=== PATIENT | female | born 1940 | race Caucasian/White ===

== ENCOUNTER 2017-04-02 13:42 | Observation (INO) | payer MEDICARE, OTHER, SELFPAY ==
[2017-04-02] VITALS (13 sets, daily range): BP systolic 130–146; BP diastolic 46–66; PULSE 62–78; RESP 19–24; TEMP 36.6–37.2; O2SAT 95–100; BMI 35.7; BMI 35.9; BMI 36.0
--- NOTE | 2017-04-02 13:48 | RAD_ITS ---
STUDY: X-RAY CHEST REASON FOR EXAM: Female, 77 years old. Chest pain. TECHNIQUE: Single AP portable view of the chest. COMPARISON: Comparison is made with prior study December 28, 2015. FINDINGS: EKG electrodes are seen. There is elevation of the right hemidiaphragm. Mild degree of vascular congestion. There is no demonstrated pleural abnormality. Sternal cerclage wires and vascular clips are present from a prior sternotomy and coronary artery bypass graft procedure (CABG). Borderline cardiomegaly. Normal mediastinum and billy. Normal visualized pulmonary arteries. Normal visualized aortic arch and descending thoracic aorta. There are diffuse degenerative changes of the visualized thoracic spine. Normal visualized ribs, clavicles, and shoulders. There is no demonstrated abnormality of the visualized soft tissue structures of the upper abdomen. RAD/Chest 1 View (Portable) IMPRESSION: Borderline cardiomegaly. Mild vascular congestion. Electronically Signed: Steve Ferreira MD at 14:13 EST Tel [phone], Service support ,
--- NOTE | 2017-04-02 13:48 | EKG12_ITS ---
Test Reason : CP Blood Pressure : / mmHG Vent. Rate : 105 BPM Atrial Rate : 105 BPM P-R Int : 000 ms QRS Dur : 120 ms QT Int : 358 ms P-R-T Axes : 000 -44 141 degrees QTc Int : 473 ms Sinus tachycardia Premature ventricular complexes Incomplete left bundle branch block Left axis deviation Anterior infarct , age undetermined Marked ST abnormality, possible inferior subendocardial injury Abnormal ECG Confirmed by SY DANIELLE ([id number]), loan expeditor KARSON FARRELL ([id number]) on 04/07/2017 10:14:56 AM Referred By: SOFYA Confirmed By:SY DANIELLE
[2017-04-02] MEDS: 0.9% Normal Saline 1,000 ML 150 ML IV (14:05)
[2017-04-02] MEDS: Aspirin 81 MG TAB.CHEW 324 MG PO (14:05)
[2017-04-02 14:07] LABS: Absolute Lymphocyte Count 1.64 X10^3/ul (0.83-4.51); Absolute Neutrophil Count 10.5 X10^3/uL (2.0-7.7); Basophil# 0.02 X10^3/uL; Basophil% 0.2 % (0-1); Eosinophil# 0.04 X10^3/uL; Eosinophils% 0.3 % (0-5); Hematocrit 37.7 % (37-47); Hemoglobin 12.1 g/dl (12.0-15.0); Lymphocyte # 1.64 X10^3/ul (4.0); Lymphocyte % 12.6 % (19-41); Mean Corp Hgb Conc 32.1 g/gl (32-36); Mean Corpuscular Hgb 28.9 pg (27.0-32.0); Mean Platelet Vol. 10.1 fl (6.2-12.0); Monocyte# 0.74 X10^3/uL; Monocyte% 5.7 % (0-10); Neutrophil # 10.49 X10^3/uL (2.7-7.7); Neutrophil % 80.7 % (47-70); Platelet Count 205 K/mm3 (150-450); RBC Distribution Width CV 13.1 % (11.6-14.6); RBC Distribution Width SD 42.7 fl (35.1-43.9); Red Blood Count 4.19 M/mm3 (4.2-5.4)
[2017-04-02 14:11] LABS: POSITIVE COUNT NO; POSITIVE DIFFERENTIAL NO; POSITIVE MORPHOLOGY NO
[2017-04-02 14:23] LABS: Anion Gap 9 (5-15); BUN 23 mg/dL (7-18); BUN/Creat Ratio 14.4 RATIO (10-20); Calcium,Total 9.4 mg/dL (8.5-10.1); Chloride 98 mmol/L (98-107); EST Glomerular Filtration Rate 33 mL/min (>60); Est Glom Filt Rate - Afr Amer 40 mL/min (>60); Estimated Creatinine Clearance 24.74 ml/min; Glucose 366 mg/dL (70-110); Potassium 3.5 mmol/L (3.5-5.1); Sodium Level 137 mmol/L (136-145)
--- NOTE | 2017-04-02 14:27 | EKG12_ITS ---
Test Reason : REPEAT Blood Pressure : / mmHG Vent. Rate : 067 BPM Atrial Rate : 067 BPM P-R Int : 178 ms QRS Dur : 114 ms QT Int : 420 ms P-R-T Axes : 016 -20 166 degrees QTc Int : 443 ms Normal sinus rhythm Anterior infarct , age undetermined ST & T wave abnormality, consider inferolateral ischemia Abnormal ECG Confirmed by SY DANIELLE ([id number]), material expeditor KARSON FARRELL ([id number]) on 04/07/2017 10:15:15 AM Referred By: CAROLINA Confirmed By:SY DANIELLE
--- NOTE | 2017-04-02 15:34 | ED.VISSUMM ---
- ER Visit Summary Date of Service: 04/02/17 Chief Complaint: Chest pain History of Present Illness: The patient is a [address] Magana and Dr. san off. Patient reports approximate hour and a half ago while she was at rest she had the onset of substernal tightness radiating to her jaw. Lasted until just before she arrived. It was 10 out of 10 at worst and she is pain-free currently. It was worsened by exertion and partially relieved by nitroglycerin. She complains of low seated nausea without vomiting, shortness of breath, and diaphoresis. This is similar to the chest pain that she had prior to needing stents. Physical Examination: Vitals: Stable. Afebrile. General: Well-nourished and well-developed. Head: Normocephalic atraumatic. Neck: Supple, no lymphadenopathy. No JVD. Nontender. Cardiovascular: Regular rate and rhythm. No murmurs. Respiratory: No respiratory distress. Clear to auscultation bilaterally. Abdominal: Soft, nontender, nondistended, normal bowel sounds. No guarding, rebound, or peritoneal signs. Back: Nontender. Extremities: Nontender, no edema. Skin: Normal color, no rash. Neurologic: Alert and oriented ?3. Cranial nerves II through XII are intact. Normal strength and sensation. Psych: Normal affect. Test Results: EKG is sinus tach at 105 with T-wave inversions in leads I, V5 and V6. Repeat EKG is unchanged. This is unchanged from December 30, 2015. Chest x-ray shows borderline cardiomegaly and mild vascular congestion. CBC is marked for white count of 13.0, 7 neutrophils 81, monocytes 13. Chem-7 is more for BUN of 23, creatinine 1.6, glucose 366. Patient is currently on steroids. I feel this partially explains her leukocytosis and hyperglycemia. Emergency Department Course and Treatment: Patient was treated with aspirin p.o. She is resting comfortably. She has had no chest pain while here. Treatment Plan: She was discussed with Dr. Muller. She will be admitted to the hospital for further evaluation and treatment. Disposition: Admitted in improved condition. Impression: 1. Chest pain. 2. YAZ score of 5. 3. Renal insufficiency. 4. Hyperglycemia with hsv-zeoixrk-dgdckacnc diabetes mellitus. This note was generated with Dragon dictation software. It may contain incorrect words, spelling, and punctuation that were not noted in review of the chart prior to signing ED Disposition - Plan for ED Patient: Chief Complaint: Chest Pain Referrals: Jeffrey Lopez MD [Primary Care Provider] -
--- NOTE | 2017-04-02 15:39 | ED.DCSUM_ITS ---
- ER Visit Summary Date of Service: 04/02/17 Chief Complaint: Chest pain History of Present Illness: The patient is a [address] Magana and Dr. san off. Patient reports approximate hour and a half ago while she was at rest she had the onset of substernal tightness radiating to her jaw. Lasted until just before she arrived. It was 10 out of 10 at worst and she is pain- free currently. It was worsened by exertion and partially relieved by nitroglycerin. She complains of low seated nausea without vomiting, shortness of breath, and diaphoresis. This is similar to the chest pain that she had prior to needing stents. Physical Examination: Vitals: Stable. Afebrile. General: Well-nourished and well-developed. Head: Normocephalic atraumatic. Neck: Supple, no lymphadenopathy. No JVD. Nontender. Cardiovascular: Regular rate and rhythm. No murmurs. Respiratory: No respiratory distress. Clear to auscultation bilaterally. Abdominal: Soft, nontender, nondistended, normal bowel sounds. No guarding, rebound, or peritoneal signs. Back: Nontender. Extremities: Nontender, no edema. Skin: Normal color, no rash. Neurologic: Alert and oriented ?3. Cranial nerves II through XII are intact. Normal strength and sensation. Psych: Normal affect. Test Results: EKG is sinus tach at 105 with T-wave inversions in leads I, V5 and V6. Repeat EKG is unchanged. This is unchanged from December 30, 2015. Chest x-ray shows borderline cardiomegaly and mild vascular congestion. CBC is marked for white count of 13.0, 7 neutrophils 81, monocytes 13. Chem-7 is more for BUN of 23, creatinine 1.6, glucose 366. Patient is currently on steroids. I feel this partially explains her leukocytosis and hyperglycemia. Emergency Department Course and Treatment: Patient was treated with aspirin p.o. She is resting comfortably. She has had no chest pain while here. Treatment Plan: She was discussed with Dr. Muller. She will be admitted to the hospital for further evaluation and treatment. Disposition: Admitted in improved condition. Impression: 1. Chest pain. 2. YAZ score of 5. 3. Renal insufficiency. 4. Hyperglycemia with bxd-uznndzn-aabjrecaf diabetes mellitus. This note was generated with Dragon dictation software. It may contain incorrect words, spelling, and punctuation that were not noted in review of the chart prior to signing ED Disposition - Plan for ED Patient: Chief Complaint: Chest Pain Referrals: Jeffrey Lopez MD [Primary Care Provider] -
[2017-04-02] MEDS: LORazepam 0.5 MG Tablet PO (15:58)
--- NOTE | 2017-04-02 17:00 | ECHOD_ITS ---
Reason For Study: SOB Procedure This was a 2D Doppler, Color Flow transthoracic echocardiogram. Exam performed portable in patient room. Left Ventricle Mildly dilated left ventricle. The estimated ejection fraction is 50-55 %. Stage 2 diastolic dysfunction. There are regional wall motion abnormalities as specified. Posterior-Basal: Mildly hypokinetic. Right Ventricle Normal size and thickness. Normal systolic function. Atria Normal left atrium. Normal right atrium. Normal atrial septum. Mitral Valve The mitral valve is structurally normal. No prolapse or stenosis seen. Trivial mitral valve insufficiency. Tricuspid Valve Normal tricuspid valve. Trivial tricuspid valve insufficiency. Right ventricular systolic pressure estimated to be 48 mmHg. Moderate pulmonary hypertension. Aortic Valve Trisinus/trileaflet aortic valve. Pulmonic Valve Normal pulmonic valve. Great Vessels Normal aortic root. Normal arch. Normal inferior vena cava. Pericardium/Pleural No pericardial effusion. Medication Definity0.5ml given slow IV push to enhance endocardial definition. MMode/2D Measurements & Calculations LVIDd: 5.0 cm IVSd: 0.79 cm Ao root diam: 2.5 cm LVIDs: 3.7 cm LVPWd: 1.1 cm LA dimension: 4.5 cm FS: 26.2 % LAV(MOD-bp): 49.9 ml LAV(MOD-bp) Indexed: 25.8 ml/m2 LA A4 area: 18.9 cm2 RA A4 area: 10.1 cm2 LAV(MOD-sp2): 44.1 ml LAV(MOD-sp4): 53.3 ml Doppler Measurements & Calculations MV E max doug: 129.5 cm/sec Lat Peak E' Doug: 5.6 cm/sec Med Peak E' Doug: 3.5 cm/sec MV A max doug: 88.0 cm/sec E/E' lat: 23.1 E/E' med: 37.2 MV E/A: 1.5 Ao V2 max: 166.3 cm/sec LV V1 max: 85.8 cm/sec PA V2 max: 114.6 cm/sec Ao max P.1 mmHg LV V1 max P.9 mmHg TR max doug: 307.2 cm/sec TR max P.8 mmHg Interpretation Summary Mildly dilated left ventricle. The estimated ejection fraction is 50-55 %. Stage 2 diastolic dysfunction. There are regional wall motion abnormalities as specified. Posterior-Basal: Mildly hypokinetic Trivial mitral valve insufficiency. Right ventricular systolic pressure estimated to be 48 mmHg. Compared to echo report dated 12/29/2015, no appreciable changes noted. Ordering Physician: Alex Grove Referring Physician: Jeffrey Lopez Performed By: Bri Lazcano RDCS
[2017-04-02 17:41] LABS: Allen Test POS; Base Excess 5 mmol/L (-2 to +2); Bicarbonate 29.6 mmol/L (22-26); Blood Gas Specimen Type ART; O2 Delivery Device Nasal Can; PO2 112 mmHG (75-100); SITE L Radial; SO2 98 % (95-99); Time Given 1715; Total Carbon Dioxide 31 mmol/L; pCO2 46.3 mmHg (35-45); pH 7.41 (7.35-7.45)
[2017-04-02 18:41] LABS: Bedside Glucose 410 mg/dL (70-110)
[2017-04-02] MEDS: Furosemide 40 MG/4 ML Vial IV (18:56)
[2017-04-02 19:46] LABS: BNP,B-Type NATRIURETIC PEPTIDE 279.6 pg/mL (0-100)
[2017-04-02] MEDS: Ipratropium/Albuterol Sulfate 3 ML AMPUL.NEB INHALATION (20:28)
--- NOTE | 2017-04-02 20:29 | PCM.HP.STD ---
Problem List (1) Chest pain Status: Acute Qualifiers: Chest pain type: precordial pain Qualified Code(s): R07.2 - Precordial pain History of Present Illness Date of Admission: 04/02/17 Chief Complaint: Chest pain The patient is a 77 year old F was seen in the emergency room at [facility] with a chief complaint of precordial substernal chest tightness which occurred approximately 1 PM this afternoon and lasted 1-1/2 hours. She stated the discomfort radiated into her throat, she denied any radiation down her arms or into her her jaw areas. She stated she took a nitroglycerin and the discomfort went away after a total of about an hour when she was in the emergency room. Patient stated she had nausea with this chest discomfort and she was short of breath. Patient had a cardiac catheterization done 2015 which showed stable coronary disease as compared with a catheterization done in 2012, at that time, it was recommended that medical management be continued. Patient is on chronic oxygen at home and she states that recently the oxygen has had to be turned up to 4 L. Patient states that she has a history of asthma, she has been following up with a warehouse guard at the [facility] concerning this. Workup in the emergency room included a chest x-ray which was read out as showing vascular congestion-I personally looked at the chest x-ray and due to the patient's large habitus, I am not sure that she does have vascular congestion. Patient's labs were performed, they were remarkable for a white blood cell count of 13,000, glucose of 366, BUN of 23, creatinine of 1.6, and troponin was 0.02. Patient had arterial blood gases performed on 4 L nasal cannula, it showed a pH of 7.41, PCO2 46, PO2 of 112. On examination, patient's heart rate and rhythm were regular, lung sounds were distant, no inspiratory rales were noted. Patient had +1 mm pretibial edema bilaterally. Patient was alert and did not appear to be in any distress. EKG performed showed a normal sinus rhythm with nonspecific ST-T wave changes in the lateral wall leads. Patient will be placed in observation status for chest pain, cardiac enzymes will be cycled, echocardiogram will be obtained, I feel that the patient would benefit from being on some IV Lasix and I have written for this. In addition, I recommended the patient that we have pulmonary medicine see the patient for evaluation and she is agreed. If cardiac enzymes remain negative, patient will undergo a resting pharmacological nuclear stress test tomorrow. 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 Dyslipidemia (Chronic) Hypothyroidism (Chronic) Obesity (Chronic) Type II diabetes mellitus (Chronic) GERD (gastroesophageal reflux disease) (Chronic) IBS (irritable bowel syndrome) (Chronic) Rheumatoid arthritis (Chronic) Moderate persistent asthma (Chronic) with secondary pulm HTN Allergies simvastatin [From Zocor] Allergy (Verified 04/02/17 14:01) Unknown acetaminophen [From Vicodin] Adverse Reaction (Verified 04/02/17 17:15) Vomiting hydrocodone bitartrate [From Vicodin] Adverse Reaction (Verified 04/02/17 17:15) Vomiting AMMONIUM LACTATE Allergy (Uncoded 04/02/17 17:15) Rash Home Medications: Ambulatory Orders Medication Instructions Recorded Aspirin [Aspirin, Baby] 81 mg PO DAILY@0800 08/23/13 Clopidogrel Bisulfate [Plavix] 75 mg PO DAILY 08/23/13 Nitroglycerin [Nitrostat] 0.4 mg SL PRN PRN 08/23/13 Omeprazole [Prilosec] 40 mg PO DAILY 08/23/13 Pravastatin [Pravachol] 80 mg PO QHS 08/23/13 Budesonide Aerosol [Pulmicort 0.25 mg INHALATION Q12H 04/11/14 Respules] Oxygen, Home [Home Oxygen] 2 - 4 lpm NASAL DAILY #1 unit 04/26/14 Isosorbide Mononitrate [Imdur] 60 mg PO DAILY #30 tablet 12/31/15 Metoprolol Tartrate [Lopressor 50 mg PO BID #60 tablet 12/31/15 (beta meredith)] Albuterol Aerosols [Ventolin 2.5 mg INHALATION Q6H PRN PRN 04/02/17 Aerosols] Allopurinol 200 mg PO DAILY 04/02/17 Amlodipine [Norvasc] 5 mg PO DAILY 04/02/17 Calcitriol [Rocaltrol] 0.25 mcg PO DAILY 04/02/17 Lorazepam [Ativan] 0.5 mg PO TID PRN PRN 01/25/18 Ropinirole HCl [Requip] 0.25 mg PO QHS PRN 04/02/17 Furosemide [Lasix] 40 mg PO BIDLX #60 tab 04/03/17 Insulin NPH Human [Humulin N Pen] 50 units SC BID pen 04/03/17 Insulin Regular, Human [Humulin R] 15 unit SQ TIDCM #1 vial 04/03/17 Potassium Chloride [K-Dur] 20 meq PO DAILY #30 tab 04/03/17 Surgical History: angioplasty, appendectomy, coronary bypass surgery, - - CABG: DENISE to the LAD; SVG to the OM system-sequential graft; SVG to the RCA, , coronary artery stent placement Psychiatric History: No pertinent psych hx 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 Denies: Anorexia, Chills, Fever, Night Sweats, Malaise, Weakness, Weight Change Eyes: Denies: Blurred vision, Cataracts, Conjunctivae Inflammation, Double vision, Drainage HEENT: Denies: Difficulty Hearing, Difficulty Swallowing, Dysphasia, Ear Pain, Eye Pain, Head Aches, Hearing Changes, Nasal bleeding, Nasal Congestion Cardiovascular: Reports: Chest Pain, Chest Tightness, Edema. Denies: Claudication, Orthopnea, Palpitations, Paroxysmal Noc. Dyspnea Respiratory: Reports: Shortness of Breath, Shortness of breath at rest, Shortness of breath upon exertion. Denies: Cough, Hemoptysis, Pleuritic Pain, Sputum production Gastrointestinal: Reports: Nausea. Denies: Abdominal Pain, Constipation, Diarrhea, Hematemesis, Hematochezia Genitourinary: Denies: Dysuria, Frequency, Hematuria, Incontinence, Nocturia, Retention Gynecological: Denies: Breast symptoms Musculoskeletal: Denies: Back Pain, Foot Pain, Hand Pain, Joint swelling, Joint Tenderness, Leg Pain Skin: Denies: Dryness, Jaundice, Pruritis, Rash Neurological: Denies: Balance problems, Blurred vision, Double vision, Change in Speech, Difficulty swallowing, Focal weakness, Headaches, Incoordination Psychiatric: Denies: Anxiety, Depression, Homicidal Ideations, Suicidal Ideations Endocrine: Denies: Change in Body Habitus, Heat/ Cold Intolerance, Polyuria, Hx of Irradiation Hematologic/ Lymphatic: Denies: Adenopathy, Anemia, Easy Bruising, Petechiae, Purpura VTE Information - Inpt Only VTE Present on Admission: No VTE Mechan Device Prophylaxis: None VTE Pharm Prophylaxis ordered?: Yes - Physical Exam General: Alert, Oriented x3, Cooperative, No apparent distress, Well developed, Well nourished HEENT: Atraumatic, PERRLA, EOMI, Normocephalic Oral: Moist Mucosa Neck: Supple, No JVD, Negative Carotid Bruits, No Nuchal Rigidity, Trachea Midline, Thyroid Normal Size and Texture Lungs: Clear to auscultation, No rhonchi, No wheeze, No rales, Diminished Cardiovascular: Regular rate, Regular Rhythm, Normal S1, Normal S2, No murmurs, PMI Normal, No rub noted, No Gallop Abdomen: Bowel Sounds Present, Soft, Non Tender, Obese Extremities: Capillary Refill Less than 3 Seconds, Edema - +1 mm pretibial edema bilaterally Skin: No rashes, No breakdown Musculoskeletal: No Tenderness to Palpation of Joints or Extremities Neurological: Cranial nerves II-XII grossly intact, Neuro grossly intact, Sensory exam intact to light touch and pain, Coordination normal Psych/Mental Status: Normal Affect, Appropriate, Alert and oriented to time, place, person, mood and affect Vital Signs Temp Pulse Resp BP Pulse Ox 97.8 F 66 22 H 146/46 H 100 04/02/17 17:00 04/02/17 18:56 04/02/17 17:00 04/02/17 17:00 04/02/17 17:00 Oxygen Flow Rate 4 Oxygen Delivery Method Nasal Cannula Weight: 92.1 kg Body Mass Index (BMI) 35.9 Intake and Output for Last 24 Hours 03/31/17 04/01/17 04/02/17 23:59 23:59 23:59 Intake Total 600 / 600 Balance 600 / 600 Laboratory Tests Past 24 Hrs 04/02/17 04/02/17 17:36 18:26 Specimen Type ART Sample Site L Radial pH 7.41 Bicarbonate Actual 29.6 H POC Total CO2 31 Base Excess 5 H O2 Saturation 98 ABG pCO2 46.3 H ABG pO2 112 H Dagoberto Test POS O2 Delivery Device Nasal Can Liter Flow 4.0 Blood Gas Notified Whom HOSP Blood Gas Notified Time 1715 Troponin I 0.12 H POC Glucose 04/02/17 18:27 POC Glucose 410 H Assessment/Plan #1 precordial chest pain-in a patient with known coronary artery disease, patient would be placed in observation status on PCU, cardiac enzymes will be cycled, patient will have a nuclear stress test if her enzymes remain negative. Echocardiogram will be obtained #2 chronic hypoxic respiratory failure-patient is on home O2 at 4 L #3 coronary artery disease #4 asthma by history-I discussed having the patient see pulmonary medicine while she was in the hospital, she is consented to this and will see Dr. Calero in consultation. Patient does see a [facility] warehouse guard. #5 type 2 diabetes-uncontrolled #6 chronic kidney disease stage III secondary to type 2 diabetes #7 obesity #8 intermediate troponin Code Visit OBSV E&M: [id number] Initial observation care L3
--- NOTE | 2017-04-02 20:35 | HP.PCM_ITS ---
Problem List (1) Chest pain Status: Acute Qualifiers: Chest pain type: precordial pain Qualified Code(s): R07.2 - Precordial pain History of Present Illness Date of Admission: 04/02/17 Chief Complaint: Chest pain The patient is a 77 year old F was seen in the emergency room at [facility] with a chief complaint of precordial substernal chest tightness which occurred approximately 1 PM this afternoon and lasted 1-1/2 hours. She stated the discomfort radiated into her throat, she denied any radiation down her arms or into her her jaw areas. She stated she took a nitroglycerin and the discomfort went away after a total of about an hour when she was in the emergency room. Patient stated she had nausea with this chest discomfort and she was short of breath. Patient had a cardiac catheterization done 2015 which showed stable coronary disease as compared with a catheterization done in 2012, at that time, it was recommended that medical management be continued. Patient is on chronic oxygen at home and she states that recently the oxygen has had to be turned up to 4 L. Patient states that she has a history of asthma, she has been following up with a methods and procedures analyst at the [facility] concerning this. Workup in the emergency room included a chest x-ray which was read out as showing vascular congestion-I personally looked at the chest x-ray and due to the patient's large habitus, I am not sure that she does have vascular congestion. Patient's labs were performed, they were remarkable for a white blood cell count of 13,000, glucose of 366, BUN of 23, creatinine of 1.6, and troponin was 0.02. Patient had arterial blood gases performed on 4 L nasal cannula, it showed a pH of 7.41, PCO2 46, PO2 of 112. On examination, patient' s heart rate and rhythm were regular, lung sounds were distant, no inspiratory rales were noted. Patient had +1 mm pretibial edema bilaterally. Patient was alert and did not appear to be in any distress. EKG performed showed a normal sinus rhythm with nonspecific ST-T wave changes in the lateral wall leads. Patient will be placed in observation status for chest pain, cardiac enzymes will be cycled, echocardiogram will be obtained, I feel that the patient would benefit from being on some IV Lasix and I have written for this. In addition, I recommended the patient that we have pulmonary medicine see the patient for evaluation and she is agreed. If cardiac enzymes remain negative, patient will undergo a resting pharmacological nuclear stress test tomorrow. 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 Dyslipidemia (Chronic) Hypothyroidism (Chronic) Obesity (Chronic) Type II diabetes mellitus (Chronic) GERD (gastroesophageal reflux disease) (Chronic) IBS (irritable bowel syndrome) (Chronic) Rheumatoid arthritis (Chronic) Moderate persistent asthma (Chronic) with secondary pulm HTN Allergies simvastatin [From Zocor] Allergy (Verified 04/02/17 14:01) Unknown acetaminophen [From Vicodin] Adverse Reaction (Verified 04/02/17 17:15) Vomiting hydrocodone bitartrate [From Vicodin] Adverse Reaction (Verified 04/02/17 17:15) Vomiting AMMONIUM LACTATE Allergy (Uncoded 04/02/17 17:15) Rash Home Medications: Ambulatory Orders Medication Instructions Recorded Aspirin [Aspirin, Baby] 81 mg PO DAILY@0800 08/23/13 Clopidogrel Bisulfate [Plavix] 75 mg PO DAILY 08/23/13 Nitroglycerin [Nitrostat] 0.4 mg SL PRN PRN 08/23/13 Omeprazole [Prilosec] 40 mg PO DAILY 08/23/13 Pravastatin [Pravachol] 80 mg PO QHS 08/23/13 Budesonide Aerosol [Pulmicort 0.25 mg INHALATION Q12H 04/11/14 Respules] Oxygen, Home [Home Oxygen] 2 - 4 lpm NASAL DAILY #1 unit 04/26/14 Isosorbide Mononitrate [Imdur] 60 mg PO DAILY #30 tablet 12/31/15 Metoprolol Tartrate [Lopressor 50 mg PO BID #60 tablet 12/31/15 (beta meredith)] Albuterol Aerosols [Ventolin 2.5 mg INHALATION Q6H PRN PRN 04/02/17 Aerosols] Allopurinol 200 mg PO DAILY 04/02/17 Amlodipine [Norvasc] 5 mg PO DAILY 04/02/17 Calcitriol [Rocaltrol] 0.25 mcg PO DAILY 04/02/17 Lorazepam [Ativan] 0.5 mg PO TID PRN PRN 01/25/18 Ropinirole HCl [Requip] 0.25 mg PO QHS PRN 04/02/17 Furosemide [Lasix] 40 mg PO BIDLX #60 tab 04/03/17 Insulin NPH Human [Humulin N Pen] 50 units SC BID pen 04/03/17 Insulin Regular, Human [Humulin R] 15 unit SQ TIDCM #1 vial 04/03/17 Potassium Chloride [K-Dur] 20 meq PO DAILY #30 tab 04/03/17 Surgical History: angioplasty, appendectomy, coronary bypass surgery, - - CABG: DENISE to the LAD; SVG to the OM system-sequential graft; SVG to the RCA, C- section, coronary artery stent placement Psychiatric History: No pertinent psych hx 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 Denies: Anorexia, Chills, Fever, Night Sweats , Malaise, Weakness, Weight Change Eyes: Denies: Blurred vision, Cataracts, Conjunctivae Inflammation, Double vision, Drainage HEENT: Denies: Difficulty Hearing, Difficulty Swallowing, Dysphasia, Ear Pain, Eye Pain, Head Aches, Hearing Changes, Nasal bleeding, Nasal Congestion Cardiovascular: Reports: Chest Pain, Chest Tightness, Edema. Denies: Claudication, Orthopnea, Palpitations, Paroxysmal Noc. Dyspnea Respiratory: Reports: Shortness of Breath, Shortness of breath at rest, Shortness of breath upon exertion. Denies: Cough, Hemoptysis, Pleuritic Pain, Sputum production Gastrointestinal: Reports: Nausea. Denies: Abdominal Pain, Constipation, Diarrhea, Hematemesis, Hematochezia Genitourinary: Denies: Dysuria, Frequency, Hematuria, Incontinence, Nocturia, Retention Gynecological: Denies: Breast symptoms Musculoskeletal: Denies: Back Pain, Foot Pain, Hand Pain, Joint swelling, Joint Tenderness, Leg Pain Skin: Denies: Dryness, Jaundice, Pruritis, Rash Neurological: Denies: Balance problems, Blurred vision, Double vision, Change in Speech, Difficulty swallowing, Focal weakness, Headaches, Incoordination Psychiatric: Denies: Anxiety, Depression, Homicidal Ideations, Suicidal Ideations Endocrine: Denies: Change in Body Habitus, Heat/ Cold Intolerance, Polyuria, Hx of Irradiation Hematologic/ Lymphatic: Denies: Adenopathy, Anemia, Easy Bruising, Petechiae, Purpura VTE Information - Inpt Only VTE Present on Admission: No VTE Mechan Device Prophylaxis: None VTE Pharm Prophylaxis ordered?: Yes - Physical Exam General: Alert, Oriented x3, Cooperative, No apparent distress, Well developed, Well nourished HEENT: Atraumatic, PERRLA, EOMI, Normocephalic Oral: Moist Mucosa Neck: Supple, No JVD, Negative Carotid Bruits, No Nuchal Rigidity, Trachea Midline, Thyroid Normal Size and Texture Lungs: Clear to auscultation, No rhonchi, No wheeze, No rales, Diminished Cardiovascular: Regular rate, Regular Rhythm, Normal S1, Normal S2, No murmurs, PMI Normal, No rub noted, No Gallop Abdomen: Bowel Sounds Present, Soft, Non Tender, Obese Extremities: Capillary Refill Less than 3 Seconds, Edema - +1 mm pretibial edema bilaterally Skin: No rashes, No breakdown Musculoskeletal: No Tenderness to Palpation of Joints or Extremities Neurological: Cranial nerves II-XII grossly intact, Neuro grossly intact, Sensory exam intact to light touch and pain, Coordination normal Psych/Mental Status: Normal Affect, Appropriate, Alert and oriented to time, place, person, mood and affect Vital Signs Temp Pulse Resp BP Pulse Ox 97.8 F 66 22 H 146/46 H 100 04/02/17 17:00 04/02/17 18:56 04/02/17 17:00 04/02/17 17:00 04/02/17 17:00 Oxygen Flow Rate 4 Oxygen Delivery Method Nasal Cannula Weight: 92.1 kg Body Mass Index (BMI) 35.9 Intake and Output for Last 24 Hours 03/31/17 04/01/17 04/02/17 23:59 23:59 23:59 Intake Total 600 / 600 Balance 600 / 600 Laboratory Tests Past 24 Hrs 04/02/17 04/02/17 17:36 18:26 Specimen Type ART Sample Site L Radial pH 7.41 Bicarbonate Actual 29.6 H POC Total CO2 31 Base Excess 5 H O2 Saturation 98 ABG pCO2 46.3 H ABG pO2 112 H Dagoberto Test POS O2 Delivery Device Nasal Can Liter Flow 4.0 Blood Gas Notified Whom HOSP Blood Gas Notified Time 1715 Troponin I 0.12 H POC Glucose 04/02/17 18:27 POC Glucose 410 H Assessment/Plan #1 precordial chest pain-in a patient with known coronary artery disease, patient would be placed in observation status on PCU, cardiac enzymes will be cycled, patient will have a nuclear stress test if her enzymes remain negative. Echocardiogram will be obtained #2 chronic hypoxic respiratory failure-patient is on home O2 at 4 L #3 coronary artery disease #4 asthma by history-I discussed having the patient see pulmonary medicine while she was in the hospital, she is consented to this and will see Dr. Calero in consultation. Patient does see a [facility] methods and procedures analyst. #5 type 2 diabetes-uncontrolled #6 chronic kidney disease stage III secondary to type 2 diabetes #7 obesity #8 intermediate troponin Code Visit OBSV E&M: [id number] Initial observation care L3
[2017-04-02] MEDS: Budesonide Respules 0.5 MG/2 ML AMPUL.NEB. 0.25 MG INHALATION (21:02)
[2017-04-02] MEDS: Pravastatin 80 MG Tablet PO (22:02)
[2017-04-02] MEDS: Metoprolol Tartrate 50 MG Tablet PO (22:03)
[2017-04-02] MEDS: Heparin Injection 5,000 UNITS/ML Syringe 5000 UNITS SC (22:04)
[2017-04-02] MEDS: ALPRAZolam 0.5 MG Tablet PO (22:07)
[2017-04-02 22:15] LABS: Bedside Glucose 453 mg/dL (70-110)
[2017-04-02 22:34] LABS: Glucose 471 mg/dL (70-110)
[2017-04-02] MEDS: Insulin NPH Human 100 UNITS/ML PEN 50 UNITS SC (22:53)
[2017-04-03] VITALS (10 sets, daily range): BP systolic 127–160; BP diastolic 52–73; PULSE 53–85; RESP 16–20; TEMP 36.5–36.9; O2SAT 97–100
[2017-04-03] MEDS: LORazepam 0.5 MG Tablet PO (00:34)
[2017-04-03 05:44] LABS: Absolute Neutrophil Count 9.9 X10^3/uL (2.0-7.7); Basophil# 0.01 X10^3/uL; Basophil% 0.1 % (0-1); Eosinophil# 0.01 X10^3/uL; Eosinophils% 0.1 % (0-5); Hematocrit 35.6 % (37-47); Hemoglobin 11.4 g/dl (12.0-15.0); Mean Corpuscular Hgb 28.6 pg (27.0-32.0); Mean Corpuscular Volume 89.2 fL (81-99); Mean Platelet Vol. 10.3 fl (6.2-12.0); Monocyte% 6.5 % (0-10); Neutrophil % 80.1 % (47-70); Platelet Count 189 K/mm3 (150-450); RBC Distribution Width CV 13.3 % (11.6-14.6); Red Blood Count 3.99 M/mm3 (4.2-5.4); White Blood Count 12.4 K/mm3 (4.4-11.0)
--- NOTE | 2017-04-03 05:55 | EKG12_ITS ---
Test Reason : MMORNING EKG Blood Pressure : / mmHG Vent. Rate : 056 BPM Atrial Rate : 056 BPM P-R Int : 192 ms QRS Dur : 114 ms QT Int : 454 ms P-R-T Axes : 074 -33 181 degrees QTc Int : 438 ms Sinus bradycardia with Premature atrial complexes Left axis deviation Anterior infarct , age undetermined ST & T wave abnormality, consider lateral ischemia Abnormal ECG When compared with ECG of 02-APR-2017 14:39, MANUAL COMPARISON REQUIRED, DATA IS UNCONFIRMED Confirmed by SY DANIELLE [id number]), editor managing director KARSON FARRELL ([id number]) on 04/09/2017 11:49:00 AM Referred By: ELIOT Confirmed By:SY DANIELLE
[2017-04-03 06:03] LABS: POSITIVE COUNT NO; POSITIVE DIFFERENTIAL NO; POSITIVE MORPHOLOGY NO
[2017-04-03 06:06] LABS: Anion Gap 8 (5-15); BUN 28 mg/dL (7-18); BUN/Creat Ratio 20.6 RATIO (10-20); Chloride 100 mmol/L (98-107); Creatinine, Serum 1.36 mg/dL (0.55-1.02); EST Glomerular Filtration Rate 40 mL/min (>60); Est Glom Filt Rate - Afr Amer 49 mL/min (>60); Estimated Creatinine Clearance 29.11 ml/min; Glucose 251 mg/dL (70-110); Sodium Level 140 mmol/L (136-145)
[2017-04-03 06:38] LABS: International Normalized Ratio 1.2; Prothrombin Time (Protime)PT. 14.3 SECONDS (11.7-14.9)
[2017-04-03 06:39] LABS: Partial Thromboplast Time 32.6 Seconds (24.1-36.2)
[2017-04-03 06:43] LABS: Magnesium 1.8 mg/dL (1.6-2.6)
[2017-04-03 06:51] LABS: Bedside Glucose 222 mg/dL (70-110)
[2017-04-03 07:13] LABS: Hemoglobin A1c 8.7 % (4.2-6.3)
[2017-04-03] MEDS: Budesonide Respules 0.5 MG/2 ML AMPUL.NEB. 0.25 MG INHALATION (07:19)
[2017-04-03] MEDS: Ipratropium/Albuterol Sulfate 3 ML AMPUL.NEB INHALATION ×2 (07:19→13:17)
[2017-04-03] MEDS: Aspirin 81 MG TAB.CHEW PO (11:33)
[2017-04-03] MEDS: Insulin NPH Human 100 UNITS/ML PEN 50 UNITS SC (11:35)
[2017-04-03] MEDS: amLODIPine 5 MG Tablet PO (11:37)
[2017-04-03] MEDS: Isosorbide Mononitrate 60 MG Tablet PO (11:37)
[2017-04-03] MEDS: Clopidogrel Bisulfate 75 MG Tablet PO (11:37)
[2017-04-03] MEDS: Metoprolol Tartrate 50 MG Tablet PO (11:37)
[2017-04-03] MEDS: Pantoprazole Sodium 40 MG Tablet PO (11:37)
[2017-04-03] MEDS: Furosemide 40 MG/4 ML Vial IV (11:39)
[2017-04-03] MEDS: 0.9% NaCl Peripheral Flush Adult/Peds IV (11:42)
--- NOTE | 2017-04-03 11:49 | PCM.CONS.GEN ---
Problem List (1) Hypercapnia Status: Acute (2) Pulmonary hypertension Status: Acute (3) Acute respiratory failure with hypoxia Status: Acute Reason for Consult Date of Consultation: 04/02/17 - pulmonary hypertension/ALYCE Reason for Consultation: pulmonary hypertension/ALYCE History of Present Illness: The patient is a 77 year old F who presented to the emergency department with sudden onset of chest tightness that radiated to her jaw. She previously had a heart catheterization and felt that these symptoms were very similar to the symptoms she experienced prior to that procedure. She did take nitroglycerin which relieved her of her chest tightness. She also experienced nausea but did not experience vomiting. When evaluated into the emergency department she was found to be tachycardic with a heart rate of 105, was in sinus tachycardia did have T-wave inversion which has been without change since documentation on December 30, 2015. She was noted to have an elevated white blood cell count which was thought to be attributed to oral corticosteroids. ABG was obtained and showed a pH of 7.41 with a PCO2 of 46, confirming chronic respiratory failure with hypercarbia. Chest x-ray was completed and did confirm mild vascular congestion. The patient has been seen by pulmonology in the past and typically follows with Dr. Estrada at [facility]. She carries a diagnosis of asthma and current home regimen consists of budesonide by nebulizer twice daily, albuterol by night nebulizer 4 times daily. Most recent pulmonary function test was completed 3-4 years ago. Most recent pulmonary stress test was a few months ago and the patient reports that within the first minute on room air her oxygen saturation dropped below 89% and she required supplemental oxygen. She denies ever being a smoker, but reports that she was exposed to secondhand smoke for 15 years. She also reports that she worked in a [employer] for many years. She also states that her daughter has COPD. She denies having frequent exacerbations of bronchitis or pneumonia. She reports that approximately 6-7 years ago she participated in a sleep study with Dr. Balbuena. She reports having severe claustrophobia and states that she was unable to complete the titration portion of the testing and therefore never began therapy. She does report snoring. She has had witnessed episodes of apnea. She naps daily for approximately 30 minutes. She also reports awakening gasping for air and feels as though she has been suffocated. 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 Dyslipidemia (Chronic) Hypothyroidism (Chronic) Obesity (Chronic) Type II diabetes mellitus (Chronic) GERD (gastroesophageal reflux disease) (Chronic) IBS (irritable bowel syndrome) (Chronic) Rheumatoid arthritis (Chronic) Moderate persistent asthma (Chronic) with secondary pulm HTN Allergies simvastatin [From Zocor] Allergy (Verified 04/02/17 14:01) Unknown acetaminophen [From Vicodin] Adverse Reaction (Verified 04/02/17 17:15) Vomiting hydrocodone bitartrate [From Vicodin] Adverse Reaction (Verified 04/02/17 17:15) Vomiting AMMONIUM LACTATE Allergy (Uncoded 04/02/17 17:15) Rash Home Medications: Ambulatory Orders Medication Instructions Recorded Aspirin [Aspirin, Baby] 81 mg PO DAILY@0800 08/23/13 Clopidogrel Bisulfate [Plavix] 75 mg PO DAILY 08/23/13 Nitroglycerin [Nitrostat] 0.4 mg SL PRN PRN 08/23/13 Omeprazole [Prilosec] 40 mg PO DAILY 08/23/13 Pravastatin [Pravachol] 80 mg PO QHS 08/23/13 Budesonide Aerosol [Pulmicort 0.25 mg INHALATION Q12H 04/11/14 Respules] Oxygen, Home [Home Oxygen] 2 - 4 lpm NASAL DAILY #1 unit 04/26/14 Insulin NPH Human Isophane 45 units SQ 0900,2200 07/22/15 [Humulin N Kwikpen] Isosorbide Mononitrate [Imdur] 60 mg PO DAILY #30 tablet 12/31/15 Metoprolol Tartrate [Lopressor 50 mg PO BID #60 tablet 12/31/15 (beta meredith)] Albuterol Aerosols [Ventolin 2.5 mg INHALATION Q6H PRN PRN 04/02/17 Aerosols] Allopurinol 200 mg PO DAILY 04/02/17 Amlodipine [Norvasc] 5 mg PO DAILY 04/02/17 Calcitriol [Rocaltrol] 0.25 mcg PO DAILY 04/02/17 Furosemide [Lasix] 20 mg PO BIDLX 04/02/17 Insulin Regular, Human [Humulin R] 50 unit SQ 1200,1700 04/02/17 Lorazepam [Ativan] 0.5 mg PO TID PRN PRN 04/02/17 Prednisone [Prednisone] 20 mg PO DAILY 04/02/17 Ropinirole HCl [Requip] 0.25 mg PO QHS PRN 04/02/17 Surgical History: noncontributory, angioplasty, - - CABG: DENISE to the LAD; SVG to the OM system-sequential graft; SVG to the RCA Psychiatric History: No pertinent psych hx 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 Denies: Anorexia, Chills, Fever, Night Sweats, Malaise, Weight Change Eyes: Denies: Blurred vision, Pain, Vision Change HEENT: Denies: Difficulty Hearing, Head Aches, Nasal Congestion, Sinus Drainage, Sore Throat Cardiovascular: Reports: Chest Tightness, Edema, Orthopnea, Paroxysmal Noc. Dyspnea. Denies: Chest Pain, Palpitations Respiratory: Reports: Shortness of breath upon exertion. Denies: Cough, Sputum production, Wheezing Gastrointestinal: Denies: Abdominal Pain Genitourinary: Reports: Nocturia Skin: Denies: Dryness, Rash, Wounds Neurological: Denies: Balance problems, Slurred speech, Confusion, Difficulty swallowing, Headaches, Numbness, Tingling Psychiatric: Reports: Anxiety. Denies: Depression Endocrine: Denies: Change in Body Habitus, Heat/ Cold Intolerance, Polydipsia, Polyuria Hematologic/ Lymphatic: Denies: Adenopathy, Anemia, Easy Bruising, Easy Bleeding Patient Problems: Active and Suspected Problems Chest pain (Acute) Hypercapnia (Acute) Pulmonary hypertension (Acute) Subjective: The patient is restful semi-bowie's in the bed, she has dyspneic during conversation. She is tachypneic. She is complaining of shortness of breath. Family is at the bedside, granddaughter does not appear to be supportive of obstructive sleep apnea treatment. Objective: Vital signs are stable, she has remained afebrile. She is on her baseline oxygen requirements. Echocardiogram is pending. Stress test was just completed and pending. - Physical Exam General: Alert, Oriented x3, Cooperative, No apparent distress, Well developed, Well nourished HEENT: Atraumatic, PERRLA, Normocephalic Oral: Moist Mucosa, No Gingival or Mucosal Lesions/ Ulcerations Neck: Supple, No Nodes, Trachea Midline, - - thick neck Lungs: Clear to auscultation, No rhonchi, No wheeze, No rales, Diminished Cardiovascular: Regular rate, Regular Rhythm, Murmur Abdomen: Bowel Sounds Present, Soft, Non Tender, Non-Distended, Obese Extremities: No clubbing, No cyanosis, Capillary Refill Less than 3 Seconds, Diminished Peripheral Pulses, Edema - 1+ bilateral LE Skin: No rashes, No breakdown Musculoskeletal: No Tenderness to Palpation of Joints or Extremities Lymphatic: No Cervical, Supraclavicular, or Inguinal Adenopathy Neurological: Cranial nerves II-XII grossly intact, Neuro grossly intact, Motor Exam 5/5 strength throughout, - - bilaterl hand tremmors present Psych/Mental Status: Appropriate, Anxious Vital Signs Temp Pulse Resp BP Pulse Ox 97.7 F L 62 19 H 160/73 H 100 04/03/17 11:32 04/03/17 11:37 04/03/17 11:32 04/03/17 11:32 04/03/17 11:32 Oxygen Flow Rate 4 Oxygen Delivery Method Nasal Cannula Weight: 203 lb 0.732 oz Body Mass Index (BMI) 35.9 Intake and Output for Last 24 Hours 04/01/17 04/02/17 04/03/17 23:59 23:59 23:59 Intake Total 600 / 600 240 / 240 Output Total 1150 / 1150 Balance 600 / 600 -910 / -910 Laboratory Tests Past 24 Hrs 04/02/17 04/02/17 04/02/17 17:36 18:26 22:08 WBC RBC Hgb Hct MCV MCH MCHC RDW RDW Differential Plt Count MPV Immature Gran % (Auto) Neut % (Auto) Lymph % (Auto) [place] % (Auto) Eos % (Auto) Baso % (Auto) Absolute Neuts (auto) Absolute Lymphs (auto) Total Counted PT INR APTT Specimen Type ART Sample Site L Radial pH 7.41 Bicarbonate Actual 29.6 H POC Total CO2 31 Base Excess 5 H O2 Saturation 98 ABG pCO2 46.3 H ABG pO2 112 H Dagoberto Test POS O2 Delivery Device Nasal Can Liter Flow 4.0 Blood Gas Notified Whom [facility] Blood Gas Notified Time 1715 Sodium Potassium Chloride Carbon Dioxide Anion Gap BUN Creatinine Estim Creat Clear Calc Est GFR (MDRD) Af Amer Est GFR (MDRD) Non-Af BUN/Creatinine Ratio Glucose Hemoglobin A1c Calcium Magnesium Troponin I 0.12 H 0.19 H 04/02/17 04/03/17 04/03/17 22:08 05:06 05:06 WBC RBC Hgb Hct MCV MCH MCHC RDW RDW Differential Plt Count MPV Immature Gran % (Auto) Neut % (Auto) Lymph % (Auto) [place] % (Auto) Eos % (Auto) Baso % (Auto) Absolute Neuts (auto) Absolute Lymphs (auto) Total Counted PT INR APTT Specimen Type Sample Site pH Bicarbonate Actual POC Total CO2 Base Excess O2 Saturation ABG pCO2 ABG pO2 Dagoberto Test O2 Delivery Device Liter Flow Blood Gas Notified Whom Blood Gas Notified Time Sodium 140 Potassium 4.0 Chloride 100 Carbon Dioxide 32.0 Anion Gap 8 BUN 28 H Creatinine 1.36 H Estim Creat Clear Calc 29.11 Est GFR (MDRD) Af Amer 49 L Est GFR (MDRD) Non-Af 40 L BUN/Creatinine Ratio 20.6 H Glucose 471 H* 251 H Hemoglobin A1c 8.7 H Calcium 9.0 Magnesium Troponin I 0.25 H 04/03/17 04/03/17 04/03/17 05:06 05:06 05:06 WBC 12.4 H RBC 3.99 L Hgb 11.4 L Hct 35.6 L MCV 89.2 MCH 28.6 MCHC 32.0 RDW 13.3 RDW Differential 43.0 Plt Count 189 MPV 10.3 Immature Gran % (Auto) 0.200 Neut % (Auto) 80.1 H Lymph % (Auto) 13.0 L [place] % (Auto) 6.5 Eos % (Auto) 0.1 Baso % (Auto) 0.1 Absolute Neuts (auto) 9.9 H Absolute Lymphs (auto) 1.60 Total Counted Not Reportable PT 14.3 INR 1.2 APTT 32.6 Specimen Type Sample Site pH Bicarbonate Actual POC Total CO2 Base Excess O2 Saturation ABG pCO2 ABG pO2 Dagoberto Test O2 Delivery Device Liter Flow Blood Gas Notified Whom Blood Gas Notified Time Sodium Potassium Chloride Carbon Dioxide Anion Gap BUN Creatinine Estim Creat Clear Calc Est GFR (MDRD) Af Amer Est GFR (MDRD) Non-Af BUN/Creatinine Ratio Glucose Hemoglobin A1c Calcium Magnesium 1.8 Troponin I POC Glucose 04/03/17 04/02/17 04/02/17 06:45 21:56 18:27 POC Glucose 222 H 453 H* 410 H Assessment/Plan Active and Suspected Problems Chest pain (Acute) Hypercapnia (Acute) Pulmonary hypertension (Acute) RECOMMENDATIONS: 1. Continue supplemental oxygen, maintain sats 89-92% 2. Walking oximetry prior to discharge 3. Continue home nebulizers treatments 4. Echocardiogram 5. Will need titration study post discharge 6. Need to obtain records from sleep study from Dr Kim and PFT from Dr Estrada 7. Will need repeat PFT 8. Patient will need follow up after d/c, may follow up with Dr Estrada or may choose to follow up with [facility] IMPRESSIONS: 1. Acute on chronic hypoxic and hypercarbic respiratory failure secondary to untreated sleep apnea Has had a positive sleep study in the past but failed to start therapy secondary to claustrophobia. Impressed the importance of treatment, educated on risks of untreated sleep apnea. Patients grand daughter may be a road block to therapy, support system is less than desirable. She agrees to titration study and initiation of pressure support therapy. Need to follow up with pulmonary post hospital d/c with either Dr Estrada or Pulmonary Medicine l[facility]far[facility]. 2. Pulmonary hypertension Echocardiogram from October 13, 2013 documented an EF of 55% and an RVSP of 39 mmHg. Repeat echocardiogram is pending. Given the patient's untreated obstructive sleep apnea, I anticipate that the RVSP will be stable or possibly have progressed. Educated the patient on the correlation between obstructive sleep apnea and diastolic heart failure. She conveys understanding. Continue to provide supplemental oxygen to maintain saturations 89-92%. 3. Obstructive sleep apnea Patient reports that she previously had a sleep study confirming obstructive sleep apnea but was not able to complete the titration portion of the test. She is agreeable to having a titration preformed. We will obtain the previous sleep study, and sent for titration study if able. The patient will then follow-up either with pulmonary medicine to [facility] or Dr. Blackmon in the outpatient setting. 4. Obesity/hypertension/coronary artery disease/DJD/dyslipidemia/hypothyroidism/diabetes type 2/GERD/IBS/RA/asthma/advanced age Comorbid illness complicates exam, plan, care and prognosis. Continue all home medications as tolerates. Thank you for the consultation and the opportunity to participate in this patient's care. This note was generated with Carma dictation software. It may contain incorrect words, spelling, and punctuation that were not noted in checking the note before signing.
[2017-04-03 11:50] LABS: Bedside Glucose 218 mg/dL (70-110)
--- NOTE | 2017-04-03 13:21 | STRESSREP ---
Stress Test Report Date: 04/03/2017 Procedure: Pharmacologic stress nuclear imaging study Indications: Chest pain Consent: Per the patient Procedure: The patient underwent pharmacologic (Regadenoson) evaluation with a peak heart rate of 85 bpm (59% predicted maximal heart rate) with a peak blood pressure 118/64 mmHg. The baseline ECG demonstrated an underlying ectopic atrial rhythm with nonspecific ST and T-wave abnormality. The peak pharmacologic ECG demonstrated no obvious ECG changes. There were no additional cardiac dysrhythmias pretest, during pharmacologic infusion, or recovery. There was no report of chest discomfort during pharmacologic infusion or recovery. The examination was discontinued secondary to completion of protocol. Impression: 1. Pharmacologic (Regadenoson) evaluation 2. Peak pharmacologic ECG with continued ectopic atrial rhythm with nonspecific ST and T-wave abnormality 3. Nuclear images pending Myocardial perfusion imaging study: Technique: The patient was injected with 14.2 mCi of technetium 99m Cardiolite and subsequently rest SPECT Cardiolite nuclear imaging was obtained in the horizontal long, vertical long, and short axis views. The patient underwent pharmacologic (Regadenoson) evaluation with a peak heart rate of 85 bpm (59% predicted maximal heart rate) with a peak blood pressure 118/64 mmHg. The patient was injected with 43.1 mCi of technetium 99m Cardiolite and subsequently stress SPECT Cardiolite nuclear imaging was obtained in the horizontal long, vertical long, and short axis views. A gated Cardiolite study at peak stress was obtained. Interpretation: Rest and stress SPECT Cardiolite nuclear imaging demonstrates, status post realignment, normalization, and attenuation correction, the appearance of relative uniform tracer uptake and myocardial perfusion appearing within normal limits. There is end systolic thickening and brightening. The gated Cardiolite study demonstrates myocardial thickening and inward wall motion. The reported LVEF is 53%. Impression: 1. Rest and stress SPECT Cardiolite nuclear imaging demonstrating relative uniform tracer uptake and myocardial perfusion appearing within normal limits. 2. The gated Cardiolite study demonstrates an LVEF 53%. This note was generated with [employer] software. Every effort was made to ensure accuracy, however, computerized sandwich wrapper mistakes may persist.
--- NOTE | 2017-04-03 13:27 | STRESSREP_ITS ---
Stress Test Report Date: 04/03/2017 Procedure: Pharmacologic stress nuclear imaging study Indications: Chest pain Consent: Per the patient Procedure: The patient underwent pharmacologic (Regadenoson) evaluation with a peak heart rate of 85 bpm (59% predicted maximal heart rate) with a peak blood pressure 118 /64 mmHg. The baseline ECG demonstrated an underlying ectopic atrial rhythm with nonspecific ST and T-wave abnormality. The peak pharmacologic ECG demonstrated no obvious ECG changes. There were no additional cardiac dysrhythmias pretest, during pharmacologic infusion, or recovery. There was no report of chest discomfort during pharmacologic infusion or recovery. The examination was discontinued secondary to completion of protocol. Impression: 1. Pharmacologic (Regadenoson) evaluation 2. Peak pharmacologic ECG with continued ectopic atrial rhythm with nonspecific ST and T-wave abnormality 3. Nuclear images pending Myocardial perfusion imaging study: Technique: The patient was injected with 14.2 mCi of technetium 99m Cardiolite and subsequently rest SPECT Cardiolite nuclear imaging was obtained in the horizontal long, vertical long, and short axis views. The patient underwent pharmacologic (Regadenoson) evaluation with a peak heart rate of 85 bpm (59% predicted maximal heart rate) with a peak blood pressure 118/64 mmHg. The patient was injected with 43.1 mCi of technetium 99m Cardiolite and subsequently stress SPECT Cardiolite nuclear imaging was obtained in the horizontal long, vertical long, and short axis views. A gated Cardiolite study at peak stress was obtained. Interpretation: Rest and stress SPECT Cardiolite nuclear imaging demonstrates, status post realignment, normalization, and attenuation correction, the appearance of relative uniform tracer uptake and myocardial perfusion appearing within normal limits. There is end systolic thickening and brightening. The gated Cardiolite study demonstrates myocardial thickening and inward wall motion. The reported LVEF is 53%. Impression: 1. Rest and stress SPECT Cardiolite nuclear imaging demonstrating relative uniform tracer uptake and myocardial perfusion appearing within normal limits. 2. The gated Cardiolite study demonstrates an LVEF 53%. This note was generated with [employer] software. Every effort was made to ensure accuracy, however, computerized board certified music therapist mistakes may persist.
--- NOTE | 2017-04-03 15:50 | CHAPLAIN ---
patient was unavailable at this time
[2017-04-03 15:56] LABS: Bedside Glucose 131 mg/dL (70-110)
--- NOTE | 2017-04-03 16:59 | NURSING ---
Pt weaned to 2L of O2, was 95%. Pt ambulated with this RN in [place] and dropped to 77% on 2L and 83% on 3L. O2 increased to 4L and sats returned to 95% with ambulation. Roseline ARAIZA
--- NOTE | 2017-04-03 17:05 | DCINST_ITS ---
- Discharge Diagnoses Current Active Problems: Current Active and Chronic Problems Chest pain (Acute) Hypercapnia (Acute) Pulmonary hypertension (Acute) You will use the following diet at home:: Calorie/Carbohydrate Controlled ( specify 1200, 1400, etc) - 1800 viviane Your food should be the consistency of: Regular Your liquids should be the consistency of: Regular/Thin Discharge Activity: Return to Normal Activity Weight Bearing Status: Full weight bearing Allergies/Adverse Reactions: Allergies simvastatin [From Zocor] Allergy (Verified 04/02/17 14:01) Unknown acetaminophen [From Vicodin] Adverse Reaction (Verified 04/02/17 17:15) Vomiting hydrocodone bitartrate [From Vicodin] Adverse Reaction (Verified 04/02/17 17:15) Vomiting AMMONIUM LACTATE Allergy (Uncoded 04/02/17 17:15) Rash Medications to take at Discharge Aspirin [Aspirin, Baby] 81 mg PO DAILY@0800 08/23/13 Clopidogrel Bisulfate [Plavix] 75 mg PO DAILY 08/23/13 Nitroglycerin [Nitrostat] 0.4 mg SL PRN PRN 08/23/13 Omeprazole [Prilosec] 40 mg PO DAILY 08/23/13 Pravastatin [Pravachol] 80 mg PO QHS 08/23/13 Budesonide Aerosol [Pulmicort Respules] 0.25 mg INHALATION Q12H 04/11/14 Oxygen, Home [Home Oxygen] 2 - 4 lpm NASAL DAILY #1 unit 04/26/14 Isosorbide Mononitrate [Imdur] 60 mg PO DAILY #30 tablet 12/31/15 Metoprolol Tartrate [Lopressor (beta meredith)] 50 mg PO BID #60 tablet 12/31/15 Albuterol Aerosols [Ventolin Aerosols] 2.5 mg INHALATION Q6H PRN PRN 04/02/17 Allopurinol 200 mg PO DAILY 04/02/17 Amlodipine [Norvasc] 5 mg PO DAILY 04/02/17 Calcitriol [Rocaltrol] 0.25 mcg PO DAILY 04/02/17 Lorazepam [Ativan] 0.5 mg PO TID PRN PRN 04/02/17 Ropinirole HCl [Requip] 0.25 mg PO QHS PRN 04/02/17 Furosemide [Lasix] 40 mg PO BIDLX #60 tab 01/26/18 Insulin NPH Human [Humulin N Pen] 50 units SC BID pen 04/03/17 Insulin Regular, Human [Humulin R] 15 unit SQ TIDCM #1 vial 04/03/17 Potassium Chloride [K-Dur] 20 meq PO DAILY #30 tab 04/03/17 The following prescriptions were given: Furosemide [Lasix] 40 mg PO BIDLX #60 tab Potassium Chloride [K-Dur] 20 meq PO DAILY #30 tab Insulin Regular, Human [Humulin R] 15 unit SQ TIDCM #1 vial Primary Care Physician: Jeffrey Lopez MD [Primary Care Provider] - Please follow up with your Primary Care Physician in: in 2 weeks Please Follow Up With: Yuri Calero MD When: in 2 weeks
--- NOTE | 2017-04-05 09:10 | DS.PCM_ITS ---
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 Workup in the emergency room included a chest x-ray which showed no active disease, labs were performed, patient was noted to have an elevated creatinine which was normal for the patient, glucose is elevated at 366, white blood cell count was slightly elevated at 13, patient's troponin was 0.02. Patient's EKG showed no evidence of ischemic changes. Patient was placed in observation status on PCU, cardiac enzymes were cycled and these jesús to the intermediate range but did not rise further and this was felt not to be significant. Patient's blood sugars were controlled with adjustment of her insulin, she was given IV diuresis due to concerns of pulmonary hypertension. Patient underwent a nuclear stress test which did not show evidence of reversible ischemia, echocardiogram was obtained which showed a preserved EF but evidence of mild pulmonary hypertension. Patient was seen in consultation by pulmonary medicine and it was noted in interviewing the patient that she had a positive sleep study but was not able to tolerate CPAP. She was to follow-up with pulmonary medicine as an outpatient for her sleep apnea. Patient's oxygen requirement was able be reduced to 2 L after diuresis, on 04/03/17, patient was seen and examined and felt to be in stable condition for discharge home Discharge Activity: Return to Normal Activity Weight Bearing Status: Full weight bearing Home Medications: Medications to take at Discharge Aspirin [Aspirin, Baby] 81 mg PO DAILY@0800 08/23/13 Clopidogrel Bisulfate [Plavix] 75 mg PO DAILY 08/23/13 Nitroglycerin [Nitrostat] 0.4 mg SL PRN PRN 08/23/13 Omeprazole [Prilosec] 40 mg PO DAILY 08/23/13 Pravastatin [Pravachol] 80 mg PO QHS 08/23/13 Budesonide Aerosol [Pulmicort Respules] 0.25 mg INHALATION Q12H 04/11/14 Oxygen, Home [Home Oxygen] 2 - 4 lpm NASAL DAILY #1 unit 04/26/14 Isosorbide Mononitrate [Imdur] 60 mg PO DAILY #30 tablet 12/31/15 Metoprolol Tartrate [Lopressor (beta meredith)] 50 mg PO BID #60 tablet 12/31/15 Albuterol Aerosols [Ventolin Aerosols] 2.5 mg INHALATION Q6H PRN PRN 04/02/17 Allopurinol 200 mg PO DAILY 04/02/17 Amlodipine [Norvasc] 5 mg PO DAILY 04/02/17 Calcitriol [Rocaltrol] 0.25 mcg PO DAILY 04/02/17 Lorazepam [Ativan] 0.5 mg PO TID PRN PRN 04/02/17 Ropinirole HCl [Requip] 0.25 mg PO QHS PRN 04/02/17 Furosemide [Lasix] 40 mg PO BIDLX #60 tab 04/03/17 Insulin NPH Human [Humulin N Pen] 50 units SC BID pen 04/03/17 Insulin Regular, Human [Humulin R] 15 unit SQ TIDCM #1 vial 04/03/17 Potassium Chloride [K-Dur] 20 meq PO DAILY #30 tab 04/03/17 Following Prescrptions Were Given to Patient: Furosemide [Lasix] 40 mg PO BIDLX #60 tab Potassium Chloride [K-Dur] 20 meq PO DAILY #30 tab Insulin Regular, Human [Humulin R] 15 unit SQ TIDCM #1 vial Primary Care Physician: Jeffrey Lopez MD [Primary Care Provider] - Please follow up with your Primary Care Physician in: in 2 weeks Please Follow Up With: Yuri Calero MD When: in 2 weeks Disposition: Home Minutes spent on discharge:: 25 Patient Condition:: Stable Meaningful Use Info Meaningful Use Diagnoses (Choose all that apply): None applicable Code Visit OBSV E&M: 60568 Observation care discharge
== END 2017-04-03 18:18 | disposition home or self-care (01) ==
LOC: ED 14:58 → PCU 15:58
PROVIDERS: Family Medicine; Internal Medicine; Admitting Provider Internal Medicine; Emergency Provider Emergency Medicine; Family Provider Family Medicine; PCP Family Medicine; Visit Provider Internal Medicine
DX: R07.2 Precordial pain (principal); R68.84 Jaw pain; E11.65 Type 2 diabetes mellitus with hyperglycemia; G47.33 Obstructive sleep apnea (adult) (pediatric); I25.10 Atherosclerotic heart disease of native coronary artery without angina pectoris; E66.9 Obesity, unspecified; I27.20 Pulmonary hypertension, unspecified; M47.9 Spondylosis, unspecified; E11.22 Type 2 diabetes mellitus with diabetic chronic kidney disease; I12.9 Hypertensive chronic kidney disease with stage 1 through stage 4 chronic kidney disease, or unspecified chronic kidney disease; N18.3 Chronic kidney disease, stage 3 (moderate); J45.40 Moderate persistent asthma, uncomplicated; M06.9 Rheumatoid arthritis, unspecified; K21.9 Gastro-esophageal reflux disease without esophagitis; K58.9 Irritable bowel syndrome, unspecified; J96.21 Acute and chronic respiratory failure with hypoxia; J96.12 Chronic respiratory failure with hypercapnia; Z79.899 Other long term (current) drug therapy; Z79.82 Long term (current) use of aspirin; Z79.02 Long term (current) use of antithrombotics/antiplatelets; Z79.51 Long term (current) use of inhaled steroids; Z68.36 Body mass index [BMI] 36.0-36.9, adult; Z71.3 Dietary counseling and surveillance; Z99.81 Dependence on supplemental oxygen; Z79.4 Long term (current) use of insulin; Z79.52 Long term (current) use of systemic steroids; Z95.1 Presence of aortocoronary bypass graft; R06.00 Dyspnea, unspecified
CPT/HCPCS: 36415; 36600; 71045; 78452; 80048; 82803; 82947; 82962; 83036; 83735; 83880; 84484; 85025; 85610; 85730; 93005; 93017; 93306; 94640; 96361; 96372; 96374; 96376; 99218; 99285; A9500; J7030; Q9957; A4216; G0378; J1940; J2785

== ENCOUNTER → 2017-04-30 14:04 | Outpatient (CLI) | payer MEDICARE, OTHER, SELFPAY ==
[2017-04-30 15:55] LABS: Hemoglobin A1c 7.9 % (4.2-6.3)
[2017-04-30 15:59] LABS: ALB/GLOB Ratio 0.8 RATIO (0.9-2.4); AST(SGOT) 32 U/L (15-37); Alanine Aminotransfer ALT/SGPT 33 U/L (13-56); Albumin, Serum 3.2 g/dL (3.2-5.0); Alkaline Phosphatase 107 U/L (45-117); Anion Gap 7 (5-15); BUN 18 mg/dL (7-18); Calcium,Total 9.1 mg/dL (8.5-10.1); Chloride 101 mmol/L (98-107); Cholesterol 101 mg/dL (200); Creatinine, Serum 1.29 mg/dL (0.55-1.02); EST Glomerular Filtration Rate 43 mL/min (>60); Est Glom Filt Rate - Afr Amer 52 mL/min (>60); Globulin 4.1 g/dL (2.2-4.2); Glucose 80 mg/dL (74-106); High Density Lipoprotein 45 mg/dL; Potassium 4.2 mmol/L (3.5-5.1); Protein, Total 7.3 g/dL (6.4-8.2); Sodium Level 143 mmol/L (136-145); Thyroid Stim Hormone (TSH) 0.89 uIU/mL (0.358-3.74); Triglycerides 96 mg/dL; Very Low Density Lipoprotein 19 mg/dL (5-40)
[2017-04-30 16:08] LABS: Hematocrit 41.2 % (37-47); Hemoglobin 12.6 g/dl (12.0-15.0); Mean Corp Hgb Conc 30.6 g/gl (32-36); Mean Corpuscular Hgb 27.7 pg (27.0-32.0); Mean Corpuscular Volume 90.5 fL (81-99); Mean Platelet Vol. 10.9 fl (6.2-12.0); Platelet Count 212 K/mm3 (150-450); RBC Distribution Width CV 13.5 % (11.6-14.6); RBC Distribution Width SD 43.5 fl (35.1-43.9); Red Blood Count 4.55 M/mm3 (4.2-5.4); White Blood Count 8.8 K/mm3 (4.4-11.0)
[2017-04-30 16:10] LABS: Scan Indicated on CBC? Y/N NO
[2017-04-30 16:19] LABS: Microalbumin,Random Urine 27.6 mg/L (NO RANGE EST.)
== END ==
PROVIDERS: Family Provider Family Medicine; PCP Family Medicine; Visit Provider Internal Medicine
DX: I25.10 Atherosclerotic heart disease of native coronary artery without angina pectoris (principal); I10 Essential (primary) hypertension; E11.65 Type 2 diabetes mellitus with hyperglycemia; E78.2 Mixed hyperlipidemia; E66.01 Morbid (severe) obesity due to excess calories
CPT/HCPCS: 36415; 80053; 80061; 82043; 82570; 83036; 84443; 85027

== ENCOUNTER 2017-05-10 14:37 | Emergency (ER) | payer MEDICARE, OTHER, SELFPAY ==
[2017-05-10 14:38] VITALS: BP 148/123; PULSE 78; RESP 16; TEMP 36.4; O2SAT 97; BMI 35.0
--- NOTE | 2017-05-10 15:03 | RAD_ITS ---
STUDY: X-RAY - PELVIS AND LEFT HIP REASON FOR EXAM: Female, 77 years old. Pain and fall TECHNIQUE: Radiological exam, hip, unilateral, with pelvis when performed; 2 or 3 views. COMPARISON: None. FINDINGS: No definite evidence for acute fracture seen. The superior and inferior pubic rami are intact. No evidence for femoral neck fractures. Degenerative changes in the sacroiliac joints. A fine bowel gas limits assessment of the sacrum. Pelvic phleboliths. Vascular calcifications. Degenerative changes in the hip joints. IMPRESSION: No evidence for acute femoral neck fractures Electronically Signed: Trace Gan, at 15:43 EST Tel , Service support , RAD/Hip 2-3 Views with Pelvis
--- NOTE | 2017-05-10 15:03 | CT_ITS ---
STUDY: CT BRAIN WITHOUT CONTRAST REASON FOR EXAM: Female, 77 years old. Fall RADIATION DOSAGE (If Supplied By Facility): CTDIvol = ( 44.99 ) mGy, DLP = ( 796.11 ) mGycm TECHNIQUE: Transaxial CT imaging of the brain was performed without administration of intravenous contrast material. Individualized dose optimization techniques were used for this CT. COMPARISON: July 22, 2015 CT, July 23, 2015 MRI FINDINGS: Normal soft tissue structures. Normal calvarium. Normal size ventricles and extra-axial spaces for the patient's age. There are areas of decreased attenuation within the white matter tracts of the supratentorial brain, consistent with microvascular disease changes. Normal basal ganglia and thalami. Normal brainstem. Normal cerebellum. There is no intracranial hemorrhage. There are no findings of an acute ischemic infarction. Normal visualized paranasal sinuses. CT/Brain/Head without Contrast IMPRESSION: No acute intracranial hemorrhage or fracture is demonstrated. Electronically Signed: Linda Pereyra MD at 15:55 EST , Service support ,
[2017-05-10 16:20] VITALS: PULSE 70; RESP 16; O2SAT 97
[2017-05-10] MEDS: Diphth,Pertuss(Acell),Tet Vac 0.5 ML Vial IM (16:55)
--- NOTE | 2017-05-10 16:55 | ED.VISSUMM ---
- ER Visit Summary Date of Service: 05/10/17 Chief Complaint: [Fall] History of Present Illness: The patient is a 77 F [presents to the emergency department after sustaining a fall prior to arrival in emergency department. Patient states that she tripped over a parking block at the [employer]. Patient try to grab the antenna of the vehicle as she was going down and struck her face on the vehicle after which she fell backwards and struck her head on the ground. No loss of consciousness. Patient has been ambulatory since. Patient describes pain in her left hip and a headache. Patient denies any neck pain or chest pain. Patient did rip finger nail off of her right middle finger off.] Physical Examination: [HEENT-PERRLA, EOMI. Cranial nerves II through XII grossly intact. TMs clear. Mucous membranes moist. No adenopathy. No hematomas noted. Patient has some mild tenderness over the posterior occiput. No bony depressions noted. No C-spine tenderness on palpation she has normal active range of motion is painless. She has a small superficial abrasion over the bridge of the nose. Cardiovascular-regular rate and rhythm without murmur or ectopy Lungs-clear to auscultation, chest wall stable without crepitus or subcu emphysema Abdomen-normoactive bowel sounds, soft, nontender, no rebound or rigidity, no peritoneal signs. Extremities-intact ?4, normal range of motion, normal pulses. Patient has tenderness over the left hip with pain with logrolling. There is no shortening or external rotation noted. Valuation of the right long finger reveals that she partially avulsed the distal portion of her nail. Test Results: [CT scan of the brain without contrast showed nothing acute. X-rays of the left hip and pelvis showed no fractures.] Emergency Department Course and Treatment: [She was given an Adacel tetanus booster.] Treatment Plan: [Patient will be given a prescription for 12 [place] for pain.] Disposition: [Discharged to home in stable condition.] Impression: Mechanical fall Closed head injury Left hip contusion [] This note was generated with [employer] software. It may contain incorrect words, spelling, and punctuation that were not noted in review of the chart prior to signing ED Disposition - Plan for ED Patient: Chief Complaint: Head Injury Referrals: Jeffrey Lopez MD [Primary Care Provider] -
--- NOTE | 2017-05-10 16:59 | ED.DCSUM_ITS ---
- ER Visit Summary Date of Service: 05/10/17 Chief Complaint: [Fall] History of Present Illness: The patient is a 77 F [presents to the emergency department after sustaining a fall prior to arrival in emergency department. Patient states that she tripped over a parking block at the [employer]. Patient try to grab the antenna of the vehicle as she was going down and struck her face on the vehicle after which she fell backwards and struck her head on the ground. No loss of consciousness. Patient has been ambulatory since. Patient describes pain in her left hip and a headache. Patient denies any neck pain or chest pain. Patient did rip finger nail off of her right middle finger off.] Physical Examination: [HEENT-PERRLA, EOMI. Cranial nerves II through XII grossly intact. TMs clear. Mucous membranes moist. No adenopathy. No hematomas noted. Patient has some mild tenderness over the posterior occiput. No bony depressions noted. No C-spine tenderness on palpation she has normal active range of motion is painless. She has a small superficial abrasion over the bridge of the nose. Cardiovascular-regular rate and rhythm without murmur or ectopy Lungs-clear to auscultation, chest wall stable without crepitus or subcu emphysema Abdomen-normoactive bowel sounds, soft, nontender, no rebound or rigidity, no peritoneal signs. Extremities-intact ?4, normal range of motion, normal pulses. Patient has tenderness over the left hip with pain with logrolling. There is no shortening or external rotation noted. Valuation of the right long finger reveals that she partially avulsed the distal portion of her nail. Test Results: [CT scan of the brain without contrast showed nothing acute. X- rays of the left hip and pelvis showed no fractures.] Emergency Department Course and Treatment: [She was given an Adacel tetanus booster.] Treatment Plan: [Patient will be given a prescription for 12 [place] for pain.] Disposition: [Discharged to home in stable condition.] Impression: Mechanical fall Closed head injury Left hip contusion [] This note was generated with [employer] software. It may contain incorrect words, spelling, and punctuation that were not noted in review of the chart prior to signing ED Disposition - Plan for ED Patient: Chief Complaint: Head Injury Referrals: Jeffrey Lopez MD [Primary Care Provider] -
--- NOTE | 2017-05-10 16:59 | ED.DEP ---
ED Disposition - Plan for ED Patient: Chief Complaint: Head Injury Instructions: ED Head Injury Closed, ED Contusion Hip, ED Mechanical Fall Prescriptions: Hydrocodone Bitart/Apap 5-325 [[place] 5/325] 1 - 2 tab PO Q4H PRN PRN 3 Days #12 tab PRN Reason: Pain Referrals: Jeffrey Lopez MD [Primary Care Provider] - 5-7 Days
--- NOTE | 2017-05-10 17:02 | DCINST.ED_ITS ---
ED Disposition - Plan for ED Patient: Chief Complaint: Head Injury Instructions: ED Head Injury Closed, ED Contusion Hip, ED Mechanical Fall Prescriptions: Hydrocodone Bitart/Apap 5-325 [[place] 5/325] 1 - 2 tab PO Q4H PRN PRN 3 Days #12 tab PRN Reason: Pain Referrals: Jeffrey Lopez MD [Primary Care Provider] - 5-7 Days
[2017-05-10 17:22] VITALS: BP 150/44; PULSE 72; RESP 22; O2SAT 98
--- NOTE | 2017-05-10 17:23 | ED.RN ---
THIS NURSE REVIEWED D/C INSTRUCTIONS WITH PT. PT VERBALIZED UNDERSTANDING OF INSTRUCTIONS. PT DENIES FURTHER NEEDS OR QUESTIONS AT THIS TIME. PT ASSISTED TO VEHICLE VIA W/C
== END 2017-05-10 17:25 | disposition home or self-care (01) ==
PROVIDERS: Emergency Provider Emergency Medicine; Family Provider Family Medicine; PCP Family Medicine
DX: S70.02XA Contusion of left hip, initial encounter (principal); S00.31XA Abrasion of nose, initial encounter; W18.09XA Striking against other object with subsequent fall, initial encounter; Y93.9 Activity, unspecified; Y92.481 Parking lot as the place of occurrence of the external cause; I25.10 Atherosclerotic heart disease of native coronary artery without angina pectoris; I10 Essential (primary) hypertension; E11.9 Type 2 diabetes mellitus without complications; Z79.4 Long term (current) use of insulin; E78.00 Pure hypercholesterolemia, unspecified; J45.909 Unspecified asthma, uncomplicated; Z79.82 Long term (current) use of aspirin; Z79.01 Long term (current) use of anticoagulants; Z99.81 Dependence on supplemental oxygen; Z79.899 Other long term (current) drug therapy
CPT/HCPCS: 70450; 73502; 90471; 90715; 99282

== ENCOUNTER 2017-05-17 19:11 | Inpatient (IN) | payer MEDICARE, OTHER, SELFPAY ==
[2017-05-17] VITALS (8 sets, daily range): BP systolic 128–150; BP diastolic 48–75; PULSE 72–80; RESP 14–22; TEMP 37.7; O2SAT 90–98; BMI 34.7; BMI 35.3
--- NOTE | 2017-05-17 19:31 | EKG12_ITS ---
Test Reason : SOB Blood Pressure : / mmHG Vent. Rate : 082 BPM Atrial Rate : 082 BPM P-R Int : 186 ms QRS Dur : 110 ms QT Int : 366 ms P-R-T Axes : 006 -31 174 degrees QTc Int : 427 ms Normal sinus rhythm Left axis deviation Anterior infarct , age undetermined ST & T wave abnormality, consider lateral ischemia Abnormal ECG Confirmed by YVES CURRY, AMBER ([id number]), visual effects editor KARSON FARRELL ([id number]) on 05/20/2017 4:09:34 PM Referred By: MUSA Confirmed By:AMBER MARINELLI MD
--- NOTE | 2017-05-17 19:34 | ED.DCSUM_ITS ---
- ER Visit Summary Date of Service: 05/17/17 Chief Complaint: Shortness of breath, cough History of Present Illness: The patient is a 77 F history of asthma, coronary disease on 3.5 L of oxygen at home, and 4 L with portable tank presents increasing dyspnea and cough since yesterday evening. Was wheezing. Status post nebulizer treatment at home. States posttussive emesis ?1. No nausea. No chest pains. Denies fever. No urinary symptoms complains of fatigue and weakness. Sick contacts with who is admitted in the hospital with pneumonia currently. Denies tobacco history. No COPD history. Physical Examination: General: Alert and oriented ?3, occasional coughing HEENT: Normocephalic, atraumatic. Moist mucosa membranes Neck: supple, nontender. Cardiovascular: Regular rate and rhythm, no murmurs Respiratory: Normal breath sounds, symmetric, no distress Abdomen: Soft, nontender, nondistended Extremities: Nontender, no edema, pulses intact ?4 Neuro: no focal neurological deficits. Test Results: EKG sinus rate of 82, no ST changes. T-wave inversion lateral leads. White count 10.2. Hemoccult 12.4. Creatinine 1.26. Troponin negative. UA pending. Chest x-ray right lower lobe pneumonia. Emergency Department Course and Treatment: Patient was 90% on her 4 L on arrival. Temperature 99.8. Heart rate 74. Did not oxygen was given DuoNeb treatment. She had some improvement of symptoms however feels weak. Workup findings a right lower lobe pneumonia. She is oxygen dependent stating she still feels fatigued and weak. I did order for UA due to those symptoms. She is committed acquired pneumonia. She does not meet sepsis criteria currently. Oxygen after treatments at 95%. However with her fatigue symptoms she did not feel she would be able to go home. With patient's symptoms worsening just over the past day, she can possibly worsen. She is started on Rocephin and Zithromax IV. Currently hospitalist is on page for discussion for admission. Treatment Plan: [] Disposition: Admission Impression: 1. Community acquired pneumonia This note was generated with [employer] dictation software. It may contain incorrect words, spelling, and punctuation that were not noted in review of the chart prior to signing ED Disposition - Plan for ED Patient: Disposition: Acute Care Hospital [facility] Chief Complaint: Shortness of Breath Diagnosis: Community acquired pneumonia Referrals: Jeffrey Lopez MD [Primary Care Provider] -
[2017-05-17] MEDS: Ipratropium/Albuterol Sulfate 3 ML AMPUL.NEB INHALATION ×2 (19:40→23:10)
--- NOTE | 2017-05-17 19:48 | RAD_ITS ---
STUDY: X-RAY CHEST REASON FOR EXAM: Female, 77 years old. Shortness of breath. Heart disease. TECHNIQUE: Single AP portable view of the chest. COMPARISON: 04/02/2017. FINDINGS: Elevated right hemidiaphragm. Airspace disease in the lower right lung consistent with atelectasis or infiltrate. No gross effusion. Left lung is clear. Sternal cerclage wires and vascular clips are present from a prior sternotomy and coronary artery bypass graft procedure (CABG). Normal mediastinum and billy. Normal visualized pulmonary arteries. Normal visualized aortic arch and descending thoracic aorta. Normal visualized thoracic spine. Normal visualized ribs, clavicles, and shoulders. There is no demonstrated abnormality of the visualized soft tissue structures of the upper abdomen. RAD/Chest 1 View (Portable) IMPRESSION: Airspace disease in the lower right lung consistent with atelectasis or infiltrate. Electronically Signed: Aravind Starkey MD at 20:10 EDT , Service support ,
[2017-05-17 19:56] LABS: Absolute Lymphocyte Count 1.03 X10^3/ul (0.83-4.51); Absolute Neutrophil Count 7.6 X10^3/uL (2.0-7.7); Basophil# 0.02 X10^3/uL; Basophil% 0.2 % (0-1); Eosinophil# 0.22 X10^3/uL; Eosinophils% 2.2 % (0-5); Hematocrit 39.4 % (37-47); Hemoglobin 12.4 g/dl (12.0-15.0); Lymphocyte # 1.03 X10^3/ul (4.0); Lymphocyte % 10.1 % (19-41); Mean Corp Hgb Conc 31.5 g/gl (32-36); Mean Corpuscular Hgb 28.4 pg (27.0-32.0); Mean Corpuscular Volume 90.2 fL (81-99); Mean Platelet Vol. 9.8 fl (6.2-12.0); Monocyte# 1.22 X10^3/uL; Neutrophil # 7.64 X10^3/uL (2.7-7.7); Neutrophil % 75.2 % (47-70); Platelet Count 191 K/mm3 (150-450); RBC Distribution Width CV 13.6 % (11.6-14.6); RBC Distribution Width SD 44.6 fl (35.1-43.9); Red Blood Count 4.37 M/mm3 (4.2-5.4); White Blood Count 10.2 K/mm3 (4.4-11.0)
[2017-05-17 20:02] LABS: POSITIVE COUNT NO; POSITIVE DIFFERENTIAL NO; POSITIVE MORPHOLOGY NO
[2017-05-17 20:10] LABS: Anion Gap 7 (5-15); BUN 14 mg/dL (7-18); BUN/Creat Ratio 11.1 RATIO (10-20); Chloride 102 mmol/L (98-107); Creatinine, Serum 1.26 mg/dL (0.55-1.02); EST Glomerular Filtration Rate 44 mL/min (>60); Est Glom Filt Rate - Afr Amer 53 mL/min (>60); Estimated Creatinine Clearance 31.42 ml/min; Glucose 87 mg/dL (74-106); Potassium 3.8 mmol/L (3.5-5.1); Sodium Level 143 mmol/L (136-145)
[2017-05-17 20:19] LABS: Color, Urine Yellow (Yellow); Glucose, Dipstick Normal (Normal); Ketone-Dipstick Negative (Negative); Leukocyte Esterase-Dipstick 500 /ul (Negative); Nitrite-Dipstick Negative (Negative); Occult Blood-Urine 50 /ul (Negative); Protein-Dipstick 30 mg/dl (Negative); Specific Gravity, Urine 1.005 (1.002-1.030); Urine Bilirubin Dipstick Negative (Negative); Urine Clarity Cloudy (Clear); Urine Urobilinogen 1 mg/dl (Normal)
[2017-05-17 20:26] LABS: Red Blood Cells-Urine 0-5 SEEN /hpf (0-5); Squamous Epithelial Cells - UA 10-25 SEEN /hpf (5-10); Transitional Epithelial - Ur 0-5 SEEN /hpf (0-5); White Blood Cells 50-100 SEEN /hpf (0-5)
[2017-05-17 20:27] LABS: Bacteria 2+ /hpf (None Seen); Mucous, Urine RARE /hpf (<or=2+)
[2017-05-17] MEDS: Ceftriaxone 1 GM/50 ML BAG IV (21:03)
[2017-05-17] MEDS: Pravastatin 80 MG Tablet PO (22:54)
[2017-05-17] MEDS: Zolpidem Tartrate 5 MG Tablet PO (22:54)
[2017-05-17] MEDS: guaiFENesin 1,200 MG Tablet 1200 MG PO (22:54)
[2017-05-17] MEDS: Metoprolol Tartrate 50 MG Tablet PO (22:54)
[2017-05-17] MEDS: 0.9% Normal Saline 1,000 ML 100 ML IV (22:54)
[2017-05-17] MEDS: 0.9% NaCl Peripheral Flush Adult/Peds IV (23:03)
--- NOTE | 2017-05-17 23:03 | PCM.HP.STD ---
Problem List (1) Community acquired pneumonia Status: Acute (2) Pulmonary hypertension Status: Acute (3) Benign essential hypertension Status: Chronic (4) CAD (coronary artery disease) Status: Chronic Comment: cabg (5) DJD (degenerative joint disease) Status: Chronic Comment: of Spine (6) Dyslipidemia Status: Chronic (7) GERD (gastroesophageal reflux disease) Status: Chronic (8) Hypothyroidism Status: Chronic History of Present Illness Date of Admission: 05/17/17 Chief Complaint: CAP The patient is a 77 year old female w/ h/o CAD, chronic hypoxic respiratory failure on nasal canula, HTN, pulmonary HTN, and RA admitted for CAP. SHe has been coughing for the past few days. The intensity and frequency of her cough have increased. Nothing made it better or worse. Sometimes she would have cough spelling so intensity that it would cause her to nausea. She has been wheezing and SOB. Her SOB is so severe that it interfered with her ADLs. She vomited once prior to admission. Her was recently admitted for CAP as well. Past Medical History Past Medical History (Chronic Problems): Chronic Problems (Last Reviewed 04/24/17 @ 11:17 by Mei Baum NP-C) ALYCE (obstructive sleep apnea) (Chronic) Obesity (Chronic) Hypothyroidism (Chronic) Dyslipidemia (Chronic) 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 Acute respiratory failure with hypoxia (Chronic) CAD (coronary artery disease) (Chronic) cabg Moderate persistent asthma (Chronic) with secondary pulm HTN Rheumatoid arthritis (Chronic) IBS (irritable bowel syndrome) (Chronic) GERD (gastroesophageal reflux disease) (Chronic) Type II diabetes mellitus (Chronic) Benign essential hypertension (Chronic) Allergies simvastatin [From Zocor] Allergy (Verified 05/17/17 19:14) Unknown acetaminophen [From Vicodin] Adverse Reaction (Verified 05/17/17 19:14) Vomiting hydrocodone bitartrate [From Vicodin] Adverse Reaction (Verified 05/17/17 19:14) Vomiting AMMONIUM LACTATE Allergy (Uncoded 04/23/17 13:26) Rash Home Medications: Ambulatory Orders Medication Instructions Recorded Aspirin [Aspirin, Baby] 81 mg PO DAILY@0800 08/23/13 Clopidogrel Bisulfate [Plavix] 75 mg PO DAILY 08/23/13 Nitroglycerin [Nitrostat] 0.4 mg SL PRN PRN 06/17/14 Omeprazole [Prilosec] 40 mg PO DAILY 08/23/13 Pravastatin [Pravachol] 80 mg PO QHS 08/23/13 Budesonide Aerosol [Pulmicort 0.25 mg INHALATION Q12H 04/11/14 Respules] Oxygen, Home [Home Oxygen] 2 - 4 lpm NASAL DAILY #1 unit 04/26/14 Isosorbide Mononitrate [Imdur] 60 mg PO DAILY #30 tab 12/31/15 Metoprolol Tartrate [Lopressor 50 mg PO BID #60 tab 12/31/15 (beta meredith)] Albuterol Aerosols [Ventolin 2.5 mg INHALATION BID 04/02/17 Aerosols] Allopurinol 200 mg PO DAILY 04/02/17 Amlodipine [Norvasc] 5 mg PO DAILY 04/02/17 Lorazepam [Ativan] 0.5 mg PO TID PRN PRN 04/02/17 Ropinirole HCl [Requip] 0.25 mg PO QHS PRN 04/02/17 Insulin NPH Human [Humulin N Pen] 50 units SC BID pen 04/03/17 Furosemide [Lasix] 20 mg PO BID 05/10/17 Insulin Regular, Human [Humulin R] 45 unit SQ BID 05/10/17 Calcitriol [Rocaltrol] 0.25 mcg PO DAILY 05/17/17 Surgical History: noncontributory, angioplasty, - Smoking Status: Never smoker - *Family History Paternal History Items: No pertinent history Sibling History Items: Cancer, Diabetes, Heart Disease Maternal History Items: No pertinent history Review of Systems Constitutional: Denies: Chills, Fever, Weight Change HEENT: Denies: Head Aches, Sinus Congestion, Sinus Drainage Cardiovascular: Denies: Chest Pain, Palpitations Respiratory: Reports: Cough, Shortness of breath at rest, Sputum production, Wheezing Gastrointestinal: Denies: Abdominal Pain, Nausea, Vomiting Genitourinary: Denies: Dysuria Musculoskeletal: Denies: Joint Pain, Joint Tenderness Skin: Denies: Rash, Wounds Neurological: Denies: Numbness, Tingling, Focal weakness Psychiatric: Denies: Anxiety, Depression, Homicidal Ideations, Suicidal Ideations Hematologic/ Lymphatic: Denies: Easy Bruising, Easy Bleeding VTE Information - Inpt Only VTE Present on Admission: No VTE Mechan Device Prophylaxis: SCD's VTE Pharm Prophylaxis ordered?: Yes Patient Problems: Active and Suspected Problems (Last Reviewed 04/24/17 @ 11:17 by Mei Baum NP-C) Community acquired pneumonia (Acute) - Physical Exam General: Alert, Oriented x3, Cooperative HEENT: Atraumatic, PERRLA, EOMI, Normocephalic Neck: Supple, No JVD, Negative Carotid Bruits, Thyroid Normal Size and Texture Lungs: Diminished, Short of Breath, Wheezes Cardiovascular: Regular rate, No murmurs Abdomen: Bowel Sounds Present, Soft, Non Tender Extremities: No edema, Capillary Refill Less than 3 Seconds Skin: No rashes, No breakdown Musculoskeletal: No Tenderness to Palpation of Joints or Extremities Neurological: Cranial nerves II-XII grossly intact Psych/Mental Status: Normal Affect, Appropriate Vital Signs Temp Pulse Resp BP Pulse Ox 100 F H 75 20 H 150/61 H 98 05/17/17 21:53 05/17/17 22:54 05/17/17 21:53 05/17/17 21:53 05/17/17 21:53 Oxygen Flow Rate (L/min) 4 Oxygen Delivery Method Nasal Cannula Weight: 90.4 kg Body Mass Index (BMI) 35.3 Assessment/Plan Active and Suspected Problems (Last Reviewed 04/24/17 @ 11:17 by Mei Baum NP-C) Community acquired pneumonia (Acute) 77 year old female w/ h/o CAD, chronic hypoxic respiratory failure on nasal canula, HTN, pulmonary HTN, and RA admitted for CAP. 1) CAP: Chest xray disclosed airspace disease in the lower right lung consistent with atelectasis or infiltrate. Will start ceftriaxone and azithromycin. Cultures pending. 2) Asthma: Will resume home meds. Will consider steroid if no improvement. C/w bronchodilator. 3) UTI: Dirty sample noted. Will start ceftriaxone. Cultures pending. 4) HTN: SBP 130s. Resume home meds. 5) Prophylaxis: SCD / heparin.
[2017-05-17 23:11] LABS: Bedside Glucose 126 mg/dL (70-110)
[2017-05-18] VITALS (14 sets, daily range): BP systolic 120–161; BP diastolic 42–68; PULSE 74–92; RESP 16–20; TEMP 36.4–37.3; O2SAT 93–100
[2017-05-18] MEDS: Ipratropium/Albuterol Sulfate 3 ML AMPUL.NEB INHALATION ×4 (03:35→18:50)
--- NOTE | 2017-05-18 04:24 | NURSING ---
Flu (-) removed from droplet precautions @ this time. Masks remain outside of door due to patient coughing.
--- NOTE | 2017-05-18 05:59 | RAD_ITS ---
STUDY: X-RAY CHEST REASON FOR EXAM: Female, 77 years old. Short of breath and cough. Dyspnea. TECHNIQUE: Frontal and lateral views of the chest. COMPARISON: 05/17/2017. FINDINGS: Persistent elevated right hemidiaphragm. Persistent focal pulmonary opacity right lung base which could be atelectasis or infiltrate and which appears more platelike on the lateral view favoring atelectasis. However mass is not excluded and consider CT scan. Probable developing atelectasis or infiltrate in the left lung base. No gross effusions. Normal size heart. Status post CABG. Normal mediastinum and billy. Normal visualized pulmonary arteries. Normal visualized aortic arch and descending thoracic aorta. Normal visualized thoracic spine. Normal visualized ribs, clavicles, and shoulders. There is no demonstrated abnormality of the visualized soft tissue structures of the upper abdomen. RAD/Chest PA and Lateral IMPRESSION: Persistent focal pulmonary opacity right lung base which could be atelectasis or infiltrate. However mass is not excluded and consider CT scan. Probable developing atelectasis or infiltrate in the left lung base. Electronically Signed: Aravind Starkey MD at 8:36 EDT , Service support ,
[2017-05-18] MEDS: BENZOCAINE/MENTHOL 1 LOZENGE 2 LOZENGE MUCOUS MEM (06:33)
[2017-05-18] MEDS: Ibuprofen 400 MG Tablet PO (06:33)
[2017-05-18] MEDS: Budesonide Respules 0.5 MG/2 ML AMPUL.NEB. 0.25 MG INHALATION ×2 (07:10→18:51)
--- NOTE | 2017-05-18 07:10 | PCM.PROGNOTE ---
Patient Problems: Active and Suspected Problems (Last Reviewed 04/24/17 @ 11:17 by ANNY Medina) Community acquired pneumonia (Acute) Subjective: Patient is a 77-year-old female with a history of ALYCE, morbid obesity, hypothyroidism, dyslipidemia, coronary artery disease, asthma, pulmonary hypertension, rheumatoid arthritis, IBS, GERD, diabetes mellitus type 2 and hypertension who presented to the emergency department at [facility] on 05/17/2017 with a complaint of cough and shortness of breath. Her is currently an inpatient at [facility] being treated for community-acquired pneumonia. Vital signs at admission were temperature 99.8, pulse rate 74, blood pressure 144/75, respiratory rate 22 and she was 90% saturated on a 4 L nasal cannula. White blood cell count was 10.2 with 75% neutrophils. Serum bicarb is elevated at 34 and the BUN was 14 with a creatinine of 1.26. Creatinine for the past year has ranged from 1.31-1.6. Influenza swab was negative. The Legionella and streptococcal antigens in the urine were negative. One blood culture was drawn and this is pending. Chest x-ray shows elevation of the right hemidiaphragm which is chronic with either atelectasis or infiltrate in the right base. Cough is nonproductive. T-max is 100?F and currently she is afebrile. She wears oxygen chronically at home between 3 and 4 L. Pulse ox on 3-1/2 L today is 96%. Vital signs are stable. Urine shows 50-100 WBCs per high-power field but also shows 10-25 WBCs and this is likely a contaminated specimen. - Physical Exam General: Alert, Oriented x3, Cooperative, No apparent distress, - - sitting up in bed eating her breakfast HEENT: Atraumatic, PERRLA, EOMI, Normocephalic Oral: Moist Mucosa, No Gingival or Mucosal Lesions/ Ulcerations Neck: No Nodes, Trachea Midline Lungs: Clear to auscultation, Diminished Cardiovascular: Regular rate, Regular Rhythm, Normal S1, Normal S2, No Gallop Abdomen: Bowel Sounds Present, Soft, Non Tender, Non-Distended, Obese Extremities: No cyanosis, No edema, No Calf Tenderness Skin: No rashes Neurological: Cranial nerves II-XII grossly intact, Neuro grossly intact, - - she has a tremor of the head which she has had for a long time. saw a neurologist a long time ago and can not remember if she was ever on medicatation. I asked her if she would like to see a neurologist for treatment and she said I don't care Psych/Mental Status: Normal Affect, Appropriate Vital Signs Temp Pulse Resp BP Pulse Ox 98.3 F 75 16 153/68 H 98 05/18/17 04:00 05/18/17 04:00 05/18/17 04:00 05/18/17 04:00 05/18/17 04:00 Oxygen Flow Rate (L/min) 4 Oxygen Delivery Method Nasal Cannula Weight: 200 lb 9.93 oz Body Mass Index (BMI) 35.3 Intake and Output for Last 24 Hours 05/16/17 05/17/17 05/18/17 22:59 23:59 23:59 Intake Total 780 / 780 Output Total 350 / 350 Balance 430 / 430 Microbiology Past 72 Hours 05/17/17 23:00 Influenza Types A,B Direct FA (ESME) - Final Mucosa - Nose POC Glucose 05/17/17 22:50 POC Glucose 126 H Assessment/Plan Active and Suspected Problems (Last Reviewed 04/24/17 @ 11:17 by Mei Baum, DEPUTY CORONER INVESTIGATOR-C) Community acquired pneumonia (Acute) Day #1 azithromycin and Rocephin Impressions 1. possible CAP - bacterial vs viral. Continue the current antibiotics. Her is in the hospital and W/U for cause of pneumonia is negative. Respiratory panel ordered. 2. ABNORMAL UA - suspect contaminated. Straight cath with UA and culture ordered 3. Chronic renal failure stage III - discontinue nonsteroidal anti-inflammatory drugs 4. Morbid obesity 5. Obstructive sleep apnea - tells me that she has never had a PSG? not on CPAP or BIPAP. Has RLS and is always tired, poor memory 6. suspected essential tremor 7. Hypothyroidism/dyslipidemia/coronary artery disease/pulmonary hypertension/rheumatoid arthritis/IBS/GERD/diabetes mellitus type 2/hypertension/restless leg syndrome-these conditions complicate care, management, recovery and prognosis. Continue current antibiotics. Sputum culture and respiratory panel ordered. Obtain ABG since she has metabolic alkalosis. Discontinue nonsteroidal anti-inflammatory drugs in this patient with stage III chronic renal failure Encouraged weight loss Encouraged her to follow-up with a it security project manager to arrange outpatient PSG and possibly pulmonary function tests - she has seen Mei Emerson in the past and agreed to a PSG and then did not show schedule......takes Ativan at home and requests this in the hospital and I explained this is contraindicated in patients with untreated sleep apnea Encouraged ambulation Code Visit Inpatient E&M: 57248 Subs Hosp L2
--- NOTE | 2017-05-18 07:23 | PN_ITS ---
Patient Problems: Active and Suspected Problems (Last Reviewed 04/24/17 @ 11:17 by ANNY Medina) Community acquired pneumonia (Acute) Subjective: Patient is a 77-year-old female with a history of ALYCE, morbid obesity, hypothyroidism, dyslipidemia, coronary artery disease, asthma, pulmonary hypertension, rheumatoid arthritis, IBS, GERD, diabetes mellitus type 2 and hypertension who presented to the emergency department at [facility] on 05/17/2017 with a complaint of cough and shortness of breath. Her is currently an inpatient at [facility] being treated for community-acquired pneumonia. Vital signs at admission were temperature 99.8, pulse rate 74, blood pressure 144/75, respiratory rate 22 and she was 90% saturated on a 4 L nasal cannula. White blood cell count was 10.2 with 75% neutrophils. Serum bicarb is elevated at 34 and the BUN was 14 with a creatinine of 1.26. Creatinine for the past year has ranged from 1.31-1.6. Influenza swab was negative. The Legionella and streptococcal antigens in the urine were negative. One blood culture was drawn and this is pending. Chest x- ray shows elevation of the right hemidiaphragm which is chronic with either atelectasis or infiltrate in the right base. Cough is nonproductive. T-max is 100?F and currently she is afebrile. She wears oxygen chronically at home between 3 and 4 L. Pulse ox on 3-1/2 L today is 96%. Vital signs are stable. Urine shows 50-100 WBCs per high-power field but also shows 10-25 WBCs and this is likely a contaminated specimen. - Physical Exam General: Alert, Oriented x3, Cooperative, No apparent distress, - - sitting up in bed eating her breakfast HEENT: Atraumatic, PERRLA, EOMI, Normocephalic Oral: Moist Mucosa, No Gingival or Mucosal Lesions/ Ulcerations Neck: No Nodes, Trachea Midline Lungs: Clear to auscultation, Diminished Cardiovascular: Regular rate, Regular Rhythm, Normal S1, Normal S2, No Gallop Abdomen: Bowel Sounds Present, Soft, Non Tender, Non-Distended, Obese Extremities: No cyanosis, No edema, No Calf Tenderness Skin: No rashes Neurological: Cranial nerves II-XII grossly intact, Neuro grossly intact, - - she has a tremor of the head which she has had for a long time. saw a neurologist a long time ago and can not remember if she was ever on medicatation. I asked her if she would like to see a neurologist for treatment and she said I don't care Psych/Mental Status: Normal Affect, Appropriate Vital Signs Temp Pulse Resp BP Pulse Ox 98.3 F 75 16 153/68 H 98 05/18/17 04:00 05/18/17 04:00 05/18/17 04:00 05/18/17 04:00 05/18/17 04:00 Oxygen Flow Rate (L/min) 4 Oxygen Delivery Method Nasal Cannula Weight: 200 lb 9.93 oz Body Mass Index (BMI) 35.3 Intake and Output for Last 24 Hours 05/16/17 05/17/17 05/18/17 22:59 23:59 23:59 Intake Total 780 / 780 Output Total 350 / 350 Balance 430 / 430 Microbiology Past 72 Hours 05/17/17 23:00 Influenza Types A,B Direct FA (ESME) - Final Mucosa - Nose POC Glucose 05/17/17 22:50 POC Glucose 126 H Assessment/Plan Active and Suspected Problems (Last Reviewed 04/24/17 @ 11:17 by Mei Baum, WEATHER ANALYST-C) Community acquired pneumonia (Acute) Day #1 azithromycin and Rocephin Impressions 1. possible CAP - bacterial vs viral. Continue the current antibiotics. Her is in the hospital and W/U for cause of pneumonia is negative. Respiratory panel ordered. 2. ABNORMAL UA - suspect contaminated. Straight cath with UA and culture ordered 3. Chronic renal failure stage III - discontinue nonsteroidal anti- inflammatory drugs 4. Morbid obesity 5. Obstructive sleep apnea - tells me that she has never had a PSG? not on CPAP or BIPAP. Has RLS and is always tired, poor memory 6. suspected essential tremor 7. Hypothyroidism/dyslipidemia/coronary artery disease/pulmonary hypertension/ rheumatoid arthritis/IBS/GERD/diabetes mellitus type 2/hypertension/restless leg syndrome-these conditions complicate care, management, recovery and prognosis. Continue current antibiotics. Sputum culture and respiratory panel ordered. Obtain ABG since she has metabolic alkalosis. Discontinue nonsteroidal anti-inflammatory drugs in this patient with stage III chronic renal failure Encouraged weight loss Encouraged her to follow-up with a pe manager to arrange outpatient PSG and possibly pulmonary function tests - she has seen Mei Emerson in the past and agreed to a PSG and then did not show schedule......takes Ativan at home and requests this in the hospital and I explained this is contraindicated in patients with untreated sleep apnea Encouraged ambulation Code Visit Inpatient E&M: 59440 Subs Hosp L2
[2017-05-18] MEDS: Insulin NPH Human 100 UNITS/ML PEN 50 UNITS SC ×2 (08:20→16:19)
[2017-05-18 08:21] LABS: Bedside Glucose 187 mg/dL (70-110)
[2017-05-18] MEDS: Allopurinol 100 MG Tablet 200 MG PO (08:21)
[2017-05-18] MEDS: Aspirin 81 MG TAB.CHEW PO (08:21)
[2017-05-18] MEDS: Clopidogrel Bisulfate 75 MG Tablet PO (09:22)
[2017-05-18] MEDS: Pantoprazole Sodium 40 MG Tablet PO (09:22)
[2017-05-18] MEDS: Isosorbide Mononitrate 60 MG Tablet PO (09:22)
[2017-05-18] MEDS: Furosemide 40 MG Tablet PO (09:22)
[2017-05-18] MEDS: amLODIPine 5 MG Tablet PO (09:22)
[2017-05-18] MEDS: Ceftriaxone 1 GM/50 ML BAG IV (09:22)
[2017-05-18] MEDS: Metoprolol Tartrate 50 MG Tablet PO ×2 (09:23→22:16)
[2017-05-18] MEDS: guaiFENesin 1,200 MG Tablet 1200 MG PO ×2 (09:23→22:16)
[2017-05-18] MEDS: Calcitriol 0.25 MCG Capsule PO (09:23)
--- NOTE | 2017-05-18 09:35 | NURSING ---
Pt. changes her mind from conversation with Dr. Peña and wishes to start treatment for her essential tremors.
--- NOTE | 2017-05-18 10:33 | CASEMGMT ---
JOSE G ANN Face to Face with patient for initial transition planning/care coordination assessment. RN CM introduced self and role at [facility]. Patient lying in bed, alert and oriented, granddaughter at bedside. Patient willing to participate in assessment and is able to answer all questions appropriately. Care providers, pharmacy, and demographics verified. See link attached. Patient wishes to discharge home, denies need for home health at this time. Patient states she has no further needs or concerns at this time. CM to follow for discharge planning needs that may arise. Disposition Plan: Patient to discharge home with family support and follow-up plans in place.
[2017-05-18 10:39] LABS: Mucous, Urine 0 SEEN /hpf (<or=2+)
[2017-05-18 10:41] LABS: Color, Urine Yellow (Yellow); Glucose, Dipstick Normal (Normal); Ketone-Dipstick Negative (Negative); Leukocyte Esterase-Dipstick 500 /ul (Negative); Nitrite-Dipstick Positive (Negative); Occult Blood-Urine 50 /ul (Negative); Protein-Dipstick 30 mg/dl (Negative); Specific Gravity, Urine 1.015 (1.002-1.030); Urine Bilirubin Dipstick Negative (Negative); Urine Clarity Sl. Cloudy (Clear); Urine Urobilinogen Normal (Normal)
[2017-05-18 10:47] LABS: Red Blood Cells-Urine 0-5 SEEN /hpf (0-5); Squamous Epithelial Cells - UA 0-5 SEEN /hpf (5-10); White Blood Cells 25-50 SEEN /hpf (0-5)
[2017-05-18 10:48] LABS: Bacteria 1+ /hpf (None Seen)
[2017-05-18] MEDS: 0.9% Normal Saline 1,000 ML 100 ML IV ×2 (11:31→22:15)
[2017-05-18 11:41] LABS: Bedside Glucose 168 mg/dL (70-110)
[2017-05-18 11:41] LABS: Allen Test POS; Base Excess 9 mmol/L (-2 to +2); Bicarbonate 32.7 mmol/L (22-26); Blood Gas Specimen Type ART; O2 Delivery Device Nasal Can; PO2 79 mmHG (75-100); SITE R Radial; SO2 96 % (95-99); Time Given 1138; Total Carbon Dioxide 34 mmol/L; pCO2 45.6 mmHg (35-45); pH 7.46 (7.35-7.45)
--- NOTE | 2017-05-18 11:45 | NURSING ---
Speech therapist recommending swallow test and suggests NPO status until after test. Nurse takes lunch tray from patient and explains test.
--- NOTE | 2017-05-18 14:20 | RAD_ITS ---
STUDY: SWALLOWING STUDY REASON FOR EXAM: Female, 77 years old. Possible aspiration. TECHNIQUE: The examination was performed with Speech Pathology in attendance. Under fluoroscopic observation, the patient ingested thin barium, thick barium, barium pudding, and barium coated cracker. FLUOROSCOPY TIME: 2:39 minutes/seconds. 2434 spot images were obtained. RADIOLOGIST INVOLVEMENT: Radiologist was present and providing direct supervision. COMPARISON: None. FINDINGS: The following was observed during swallowing of the various mixtures of barium: Thin Barium: Transient penetration with ejection upon ingestion of thin liquids. Barium Pudding: There was no evidence of aspiration or laryngeal penetration. Barium Coated Cracker: There was no evidence of aspiration or laryngeal penetration. RAD/Swallowing Function w/Video IMPRESSION: Transient penetration with ejection upon ingestion of thin liquids. The swallow study findings were discussed with the patient by the speech pathologist at the conclusion of the examination. Please see speech pathology report for more information and recommendations. Electronically Signed: Steve Ferreira MD at 15:22 EDT Tel [phone], Service support ,
--- NOTE | 2017-05-18 14:26 | CHAPLAIN ---
Type of Pastoral Visit _x__ Initial Visit ___ Follow-up Visit ___ On-call Visit ___ General Patient Visit ___ Spiritual Assessment ___ Family Conference ___ Bereavement ___ Rapid Response ___ Code Blue ___ Other (describe below) Pastoral Care Referral From _x__ Patient ___ Family ___ Nurse ___ Physician ___ Um Specialist ___ Traffic Ii Manager ___ Other (describe below) Sacrament/Intervention _x__ Active listening ___ Anointing ___ Hinduism ___ Bereavement ___ Communion ___ Nga exploration ___ ___ Life review _x__ Prayer ___ Reconciliation ___ Sacrament of Sick ___ Supportive presence ___ Wedding ___ Other (describe below) Pastoral Comments
--- NOTE | 2017-05-18 14:50 | SP.MBSS_ITS ---
PRIMARY / SECONDARY DIAGNOSIS: dysphagia (R13.10) REFERRING PHYSICIAN: Dr. Jessica Peña MD CURRENT DIET: soft textures, thin liquids DENTITION: edentulous MENTAL STATUS: WNL RESPIRATORY STATUS: O2 at 4L/min via nasal cannula. PREVIOUS MODIFIED BARIUM SWALLOW STUDY: none REASON FOR REFERRAL: Patient is a 77 year old female referred for a modified barium swallow (MBS) study to objectively assess the Patients oropharyngeal swallow function under fluoroscopy secondary to concerns for silent aspiration following repeat chest x -ray and suspected silent aspiration following assessment at bedside. Patient currently admitted to [facility] (05/17/2017) due to persistent and increasing coughing over the last few days prior to admission; workup suggestive of community acquired pneumonia; chest x-ray disclosed airspace disease in the lower right lung consistent with atelectasis or infiltrate. Patient reports occasional albeit rare incidences of coughing during PO intake ( verified by family); no prior pneumonia reported, no prior workup for dysphagia. 05/17/2017 CXR revealed airspace disease in the lower right lung consistent with atelectasis or Infiltrate. 05/18/2017 CXR revealed persistent focal pulmonary opacity right lung base which could be atelectasis or infiltrate ; mass is not excluded and consider CT scan; probable developing atelectasis or infiltrate in the left lung base. MEDICAL HISTORY: Acute respiratory failure with hypoxia, gastroesophageal reflux disease, rheumatoid arthritis, moderate persistent asthma with secondary pulmonary hypertension, coronary artery disease status post coronary artery bypass graft, obstructive sleep apnea, obesity, hypothyroidism, dyslipidemia, degenerative joint disease of the spine, irritable bowel syndrome, type II diabetes mellitus , benign essential hypertension. STUDY FINDINGS: Patient participated in a Modified Barium Swallow (MBS) study on 05/18/2017. Dr. Ferreira was the radiologist present for this evaluation. This study was recorded in the lateral view and images were sent to PACs for storage. The following consistencies were presented to this patient for analysis of oropharyngeal swallow function: thin liquids, pudding, and a regular textured, Sandra Doone cookie. Results of the MBS are as follows: PENETRATION / ASPIRATION SCALE (GOMES): 1 = does not enter airway 2 = enters airway/above vocal folds/ejected 3 = enters airway/above vocal folds/not ejected 4 = enters airway/contacts vocal folds/ejected 5 = enters airway/contacts vocal folds/not ejected 6 = enters airway/below vocal folds/ejected 7 = enters airway/below vocal folds/not ejected despite effort 8 = enters airway/below vocal folds/no effort PENETRATION / ASPIRATION SCALE (SCORE): Thin liquid - 5 mL tsp.: 1 Thin liquids via cup (sequential swallows): 3 Thin liquids via cup (sequential swallows): 5 Thin liquids via straw (sequential swallows): 5 Thin liquids via cup (single sip): 3 Thin liquids via cup (chin tuck): 1 Thin liquids via cup (chin tuck): 1 Thin liquids via cup (chin tuck): 1 Pudding via spoon: 1 Regular textured cookie: 1 Thin liquids via straw (chin tuck): 1 * multiple images complicated by body habitus and intermittently via posturing IMPRESSION: DIAGNOSIS: mild to moderate oropharyngeal dysphagia (R13.12) ORAL PHASE CHARACTERIZED BY: LABIAL SEAL: no labial escape TONGUE CONTROL DURING BOLUS MANIPULATION: posterior escape of less than half of bolus BOLUS PREPARATION / MASTICATION: slow prolonged chewing/mashing with complete recollection BOLUS TRANSPORT / LINGUAL MOTION: brisk tongue motion ORAL RESIDUE: trace residue lining oral structures PHARYNGEAL PHASE CHARACTERIZED BY: INITIATION OF PHARYNGEAL SWALLOW: bolus head at posterior laryngeal surface of epiglottis at first hyoid excursion SOFT PALATE ELEVATION: no bolus between soft palate and pharyngeal wall LARYNGEAL ELEVATION: partial superior movement of thyroid cartilage/partial approximation of arytenoids cartilage to epiglottic petiole ANTERIOR HYOID EXCURSION: partial anterior movement EPIGLOTTIC MOVEMENT: complete epiglottic inversion LARYNGEAL VESTIBULE CLOSURE AT HEIGHT OF SWALLOW: incomplete laryngeal vestibule closure with narrow column of air/contrast in laryngeal vestibule PHARYNGEAL STRIPPING WAVE: pharyngeal stripping wave present / complete PHARYNGOESOPHAGEAL SEGMENT OPENING: complete distension and complete duration with no obstruction of flow TONGUE BASE RETRACTION: no contrast between tongue base and posterior pharyngeal wall PHARYNGEAL RESIDUE: intermittent trace residue within or on pharyngeal structures ESOPHAGEAL PHASE CHARACTERIZED BY: ESOPHAGEAL BOLUS CLEARANCE IN THE UPRIGHT POSITION: esophageal retention EFFECTS OF TREATMENT STRATEGIES ATTEMPTED: Chin tuck posture = effective Reduced bolus size = effective DIET TEXTURE RECOMMENDATIONS: Will recommend a regular-soft textured, thin liquid diet. COMPENSATORY STRATEGIES RECOMMENDED: Chin tuck, reduced bolus volume, seated upright at 90 degrees during PO intake , remain upright for 30-60 minutes post meal (GERD precaution) INTERPRETATION OF RESULTS: Patient presents with mild to moderate oropharyngeal dysphagia (R13.12) likely attributed to multiple medical complications and secondary presbyphagia. Oral phase primarily marked by mild mastication inefficiency complicated by edentulous status; suboptimal lingual control resulting in premature posterior bolus loss of thin liquids without execution of the chin tuck posture. Pharyngeal phase marked by suboptimal bolus location upon swallow onset contributing to prandial penetration; and reduced closure of the airway during deglutition attributed to reduced hyolaryngeal excursion resulting in poor laryngeal vestibule closure / pressure with insufficient laryngeal vestibule pressure generated to expel penetrated material. Patient at higher risk of penetration and subsequent aspiration with volume overload during ingestion of larger bolus volumes. All deficits ameliorated with bolus volume adjustments and execution of the chin tuck posture. No aspiration appreciated throughout trials, unable to definitively rule out silent aspiration. RECOMMENDATIONS: Patient requires continued skilled speech-language intervention targeting continued diet texture management; and training / implementation of recommended compensatory strategies ADDITIONAL COMMENTS/RECOMMENDATIONS: Results and recommendations were discussed with the Patient immediately following MBS completion, with the Patient verbalizing understanding and agreement with all recommendations and education provided. IMAGE COUNT: [id number]
--- NOTE | 2017-05-18 15:13 | NURSING ---
Pt. off the floor for cookie swallow testing.
[2017-05-18 16:26] LABS: Bedside Glucose 157 mg/dL (70-110)
[2017-05-18] MEDS: MELATONIN 3 MG TABLET PO (22:16)
[2017-05-18] MEDS: Azithromycin 250 MG Tablet 500 MG PO (22:16)
[2017-05-18] MEDS: Pravastatin 80 MG Tablet PO (22:16)
[2017-05-18 22:35] LABS: Bedside Glucose 79 mg/dL (70-110)
[2017-05-19] VITALS (18 sets, daily range): BP systolic 136–157; BP diastolic 47–74; PULSE 71–107; RESP 16–20; TEMP 36.7–37.2; O2SAT 94–99
[2017-05-19] MEDS: Ipratropium/Albuterol Sulfate 3 ML AMPUL.NEB INHALATION ×6 (02:50→23:29)
[2017-05-19 06:51] LABS: Bedside Glucose 93 mg/dL (70-110)
[2017-05-19] MEDS: Budesonide Respules 0.5 MG/2 ML AMPUL.NEB. 0.25 MG INHALATION (07:46)
[2017-05-19] MEDS: Aspirin 81 MG TAB.CHEW PO (08:20)
[2017-05-19] MEDS: Allopurinol 100 MG Tablet 200 MG PO (08:49)
[2017-05-19] MEDS: Insulin NPH Human 100 UNITS/ML PEN 20 UNITS SC (08:54)
[2017-05-19 09:35] LABS: Hemoglobin A1c 8.5 % (4.2-6.3)
[2017-05-19 09:41] LABS: Bedside Glucose 110 mg/dL (70-110)
[2017-05-19] MEDS: Calcitriol 0.25 MCG Capsule PO (09:54)
[2017-05-19] MEDS: 0.9% Normal Saline 1,000 ML 100 ML IV (09:54)
[2017-05-19] MEDS: Metoprolol Tartrate 50 MG Tablet PO ×2 (09:54→22:26)
[2017-05-19] MEDS: Ceftriaxone 1 GM/50 ML BAG IV (09:54)
[2017-05-19] MEDS: Pantoprazole Sodium 40 MG Tablet PO (09:56)
[2017-05-19] MEDS: Isosorbide Mononitrate 60 MG Tablet PO (09:56)
[2017-05-19] MEDS: guaiFENesin 1,200 MG Tablet 1200 MG PO ×2 (09:56→22:27)
[2017-05-19] MEDS: amLODIPine 5 MG Tablet PO (09:56)
[2017-05-19] MEDS: Furosemide 40 MG Tablet PO (09:56)
[2017-05-19] MEDS: Clopidogrel Bisulfate 75 MG Tablet PO (09:56)
[2017-05-19 11:55] LABS: Bedside Glucose 181 mg/dL (70-110)
[2017-05-19] MEDS: LORazepam 0.5 MG Tablet PO ×2 (12:35→22:35)
[2017-05-19 12:36] LABS: Bedside Glucose 155 mg/dL (70-110)
--- NOTE | 2017-05-19 12:57 | PCM.PROGNOTE ---
Patient Problems: Active and Suspected Problems (Last Reviewed 04/24/17 @ 11:17 by Mei Baum NP-C) Community acquired pneumonia (Acute) Subjective: T-max 100?F. Has been afebrile for > 24 hours now. Systolic blood pressure has been mildly elevated. She is currently 99% on 3-1/2 L. Respiratory panel was positive for RSV B. Sputum culture has no growth. Urine culture has no growth. Sugar this a.m. was low..... Appetite is poor and she is on a calorie diet in the hospital which she does not follow at home. Insulin has been adjusted. She does not eat breakfast at home.....she routinely eats Lunch and supper She is still c/o tremors and also SOB. She has started to bring up sputum with the Acapella but, she has not been expectorating. Denies any difficulty swallowing. No chest pain. Nod idarrhea, nausea or vomiting - Physical Exam General: Alert, Oriented x3, Cooperative, - - She is sitting up in a chair and she looks more energetic than yesterday and less fatigued. She was picking at her lunch HEENT: Atraumatic, PERRLA, EOMI Oral: Dry Mucosa Neck: Supple, No Nuchal Rigidity, Trachea Midline Lungs: Wheezes - throughout, inspiratory and expiratory.....now that the air exchange has improved she has more audible wheezing. No rales. No conversational dyspnea and no accessory muscle use Cardiovascular: Regular rate, Regular Rhythm, Normal S1, Normal S2, No Gallop Abdomen: Bowel Sounds Present, Soft, Non Tender, Non-Distended Extremities: No Calf Tenderness, Edema - trace hands and feet Skin: No rashes Neurological: Cranial nerves II-XII grossly intact, Neuro grossly intact Psych/Mental Status: Normal Affect, Appropriate Vital Signs Temp Pulse Resp BP Pulse Ox 98.9 F 71 18 157/47 H 99 05/19/17 08:16 05/19/17 11:01 05/19/17 10:52 05/19/17 08:16 05/19/17 08:16 Oxygen Flow Rate (L/min) 3.5 Oxygen Delivery Method Nasal Cannula Weight: 207 lb 3.752 oz Body Mass Index (BMI) 35.3 Intake and Output for Last 24 Hours 05/17/17 05/18/17 05/19/17 23:59 23:59 23:59 Intake Total 2459 / 2459 937 / 937 Output Total 650 / 650 Balance 1809 / 1809 937 / 937 Microbiology Past 72 Hours 05/18/17 16:15 Gram Stain - Preliminary Sputum, Expectorated/Coughed Respiratory Culture - Preliminary Culture exhibits no growth. 05/18/17 10:30 Urine Culture - Preliminary Urine, Catheterized Culture exhibits no growth. 05/17/17 23:00 Respiratory Panel (PCR) - Final Mucosa - Nose RSV B 05/17/17 23:00 Influenza Types A,B Direct FA (ESME) - Final Mucosa - Nose Laboratory Tests Past 24 Hrs 05/19/17 09:00 Hemoglobin A1c 8.5 H POC Glucose 05/19/17 05/19/17 05/19/17 12:27 11:46 08:23 POC Glucose 155 H 181 H 110 05/19/17 05/18/17 05/18/17 06:43 22:30 16:17 POC Glucose 93 79 157 H Assessment/Plan Active and Suspected Problems (Last Reviewed 04/24/17 @ 11:17 by Mei Baum, METAL FURNITURE REPAIRER-C) Community acquired pneumonia (Acute) Day #2 azithromycin and Rocephin Impressions 1. Viral CAP due to RSV 2. ABNORMAL UA - suspect contaminated. Straight cath with UA and culture ordered 3. Chronic renal failure stage III - discontinue nonsteroidal anti-inflammatory drugs 4. Morbid obesity 5. Obstructive sleep apnea - tells me that she has never had a PSG? not on CPAP or BIPAP. Has RLS and is always tired, poor memory 6. suspected essential tremor 7. Hypothyroidism/dyslipidemia/coronary artery disease/pulmonary hypertension/rheumatoid arthritis/IBS/GERD/diabetes mellitus type 2/hypertension/restless leg syndrome/tremors These conditions complicate care, management, recovery and prognosis. HGBA1C is 8.5. BS's in the hospital are low due to calorie controlled diet. Needs better diet at home DC the Rocephin since the sputum is no growth. Finish 3 doses of Azithromycin continue Solu-Medrol at 40 mg IV every 8 hours. Continue aerosolized bronchodilators. Consult Dr. Green for chronic tremors that interfere with ADLs Recheck BMP and CBC in the a.m. Encouraged her to continue to use the ITS and Acapella hourly while she is awake Stressed the importance of weight loss and controlling diabetes mellitus Insulin regimen was adjusted for low blood sugars Change the calorie controlled diet to 1400 viviane daily Pt was seen by the car parker and she declined any intervention at this time Code Visit Inpatient E&M: [id number] Subs Hosp L2
--- NOTE | 2017-05-19 13:14 | PN_ITS ---
Patient Problems: Active and Suspected Problems (Last Reviewed 04/24/17 @ 11:17 by Mei Baum NP-C) Community acquired pneumonia (Acute) Subjective: T-max 100?F. Has been afebrile for > 24 hours now. Systolic blood pressure has been mildly elevated. She is currently 99% on 3-1/2 L. Respiratory panel was positive for RSV B. Sputum culture has no growth. Urine culture has no growth. Sugar this a.m. was low..... Appetite is poor and she is on a calorie diet in the hospital which she does not follow at home. Insulin has been adjusted. She does not eat breakfast at home.....she routinely eats Lunch and supper She is still c/o tremors and also SOB. She has started to bring up sputum with the Acapella but, she has not been expectorating. Denies any difficulty swallowing. No chest pain. Nod idarrhea, nausea or vomiting - Physical Exam General: Alert, Oriented x3, Cooperative, - - She is sitting up in a chair and she looks more energetic than yesterday and less fatigued. She was picking at her lunch HEENT: Atraumatic, PERRLA, EOMI Oral: Dry Mucosa Neck: Supple, No Nuchal Rigidity, Trachea Midline Lungs: Wheezes - throughout, inspiratory and expiratory.....now that the air exchange has improved she has more audible wheezing. No rales. No conversational dyspnea and no accessory muscle use Cardiovascular: Regular rate, Regular Rhythm, Normal S1, Normal S2, No Gallop Abdomen: Bowel Sounds Present, Soft, Non Tender, Non-Distended Extremities: No Calf Tenderness, Edema - trace hands and feet Skin: No rashes Neurological: Cranial nerves II-XII grossly intact, Neuro grossly intact Psych/Mental Status: Normal Affect, Appropriate Vital Signs Temp Pulse Resp BP Pulse Ox 98.9 F 71 18 157/47 H 99 05/19/17 08:16 05/19/17 11:01 05/19/17 10:52 05/19/17 08:16 05/19/17 08:16 Oxygen Flow Rate (L/min) 3.5 Oxygen Delivery Method Nasal Cannula Weight: 207 lb 3.752 oz Body Mass Index (BMI) 35.3 Intake and Output for Last 24 Hours 05/17/17 05/18/17 05/19/17 23:59 23:59 23:59 Intake Total 2459 / 2459 937 / 937 Output Total 650 / 650 Balance 1809 / 1809 937 / 937 Microbiology Past 72 Hours 05/18/17 16:15 Gram Stain - Preliminary Sputum, Expectorated/Coughed Respiratory Culture - Preliminary Culture exhibits no growth. 05/18/17 10:30 Urine Culture - Preliminary Urine, Catheterized Culture exhibits no growth. 05/17/17 23:00 Respiratory Panel (PCR) - Final Mucosa - Nose RSV B 05/17/17 23:00 Influenza Types A,B Direct FA (ESME) - Final Mucosa - Nose Laboratory Tests Past 24 Hrs 05/19/17 09:00 Hemoglobin A1c 8.5 H POC Glucose 05/19/17 05/19/17 05/19/17 12:27 11:46 08:23 POC Glucose 155 H 181 H 110 05/19/17 05/18/17 05/18/17 06:43 22:30 16:17 POC Glucose 93 79 157 H Assessment/Plan Active and Suspected Problems (Last Reviewed 04/24/17 @ 11:17 by Mei Baum, WOMEN'S LACROSSE COACH-C) Community acquired pneumonia (Acute) Day #2 azithromycin and Rocephin Impressions 1. Viral CAP due to RSV 2. ABNORMAL UA - suspect contaminated. Straight cath with UA and culture ordered 3. Chronic renal failure stage III - discontinue nonsteroidal anti- inflammatory drugs 4. Morbid obesity 5. Obstructive sleep apnea - tells me that she has never had a PSG? not on CPAP or BIPAP. Has RLS and is always tired, poor memory 6. suspected essential tremor 7. Hypothyroidism/dyslipidemia/coronary artery disease/pulmonary hypertension/ rheumatoid arthritis/IBS/GERD/diabetes mellitus type 2/hypertension/restless leg syndrome/tremors These conditions complicate care, management, recovery and prognosis. HGBA1C is 8.5. BS's in the hospital are low due to calorie controlled diet. Needs better diet at home DC the Rocephin since the sputum is no growth. Finish 3 doses of Azithromycin continue Solu-Medrol at 40 mg IV every 8 hours. Continue aerosolized bronchodilators. Consult Dr. Green for chronic tremors that interfere with ADLs Recheck BMP and CBC in the a.m. Encouraged her to continue to use the ITS and Acapella hourly while she is awake Stressed the importance of weight loss and controlling diabetes mellitus Insulin regimen was adjusted for low blood sugars Change the calorie controlled diet to 1400 viviane daily Pt was seen by the systems analyst developer and she declined any intervention at this time Code Visit Inpatient E&M: [id number] Subs Hosp L2
[2017-05-19] MEDS: 0.9% NaCl Peripheral Flush Adult/Peds IV ×2 (14:08→22:35)
--- NOTE | 2017-05-19 14:49 | CON.PCM_ITS ---
Problem List (1) Tremors of nervous system Status: Acute Reason for Consult Date of Consultation: 05/19/17 Reason for Consultation: Tremors History of Present Illness: The patient is a 77 year old CF with PMH HTN, HLD, DM, CAD s/p CABG and stents, hypothyroidism, ALYCE, morbid obesity, Asthma, RA admitted with cough and dyspnea , found to have RSV B PNA. Neurology consulted for tremors. Per patient she has been having tremors for about 10 yrs now, had head tremors initially, then had tremors in both hands mostly when she is trying to do some work, tremors get worse when she takes inhaler medications per patient, denies any REM behavior d/ o, visual hallucinations, frequent falls, bradykinesia, or resting tremors at present. She uses a walker to ambulate long distances, does not drive, does not need assistance for her ADLs per patient. At present she denies any new focal motor weakness, sensory loss, visual disturbances or speech disturbances. [] Past Medical History Past Medical History (Chronic Problems): Chronic Problems (Last Reviewed 04/24/17 @ 11:17 by Mei Baum NP-C) ALYCE (obstructive sleep apnea) (Chronic) Obesity (Chronic) Hypothyroidism (Chronic) Dyslipidemia (Chronic) 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 Acute respiratory failure with hypoxia (Chronic) CAD (coronary artery disease) (Chronic) cabg Moderate persistent asthma (Chronic) with secondary pulm HTN Rheumatoid arthritis (Chronic) IBS (irritable bowel syndrome) (Chronic) GERD (gastroesophageal reflux disease) (Chronic) Type II diabetes mellitus (Chronic) Benign essential hypertension (Chronic) Allergies simvastatin [From Zocor] Allergy (Verified 05/17/17 23:14) Unknown acetaminophen [From Vicodin] Adverse Reaction (Verified 05/17/17 23:14) Vomiting hydrocodone bitartrate [From Vicodin] Adverse Reaction (Verified 05/17/17 23:14) Vomiting AMMONIUM LACTATE Allergy (Uncoded 04/23/17 13:26) Rash Home Medications: Ambulatory Orders Medication Instructions Recorded Aspirin [Aspirin, Baby] 81 mg PO DAILY@0800 08/23/13 Clopidogrel Bisulfate [Plavix] 75 mg PO DAILY 08/23/13 Nitroglycerin [Nitrostat] 0.4 mg SL PRN PRN 08/23/13 Omeprazole [Prilosec] 40 mg PO DAILY 08/23/13 Pravastatin [Pravachol] 80 mg PO QHS 08/23/13 Budesonide Aerosol [Pulmicort 0.25 mg INHALATION Q12H 04/11/14 Respules] Oxygen, Home [Home Oxygen] 2 - 4 lpm NASAL DAILY #1 unit 04/26/14 Isosorbide Mononitrate [Imdur] 60 mg PO DAILY #30 tab 12/31/15 Metoprolol Tartrate [Lopressor 50 mg PO BID #60 tab 12/31/15 (beta meredith)] Albuterol Aerosols [Ventolin 2.5 mg INHALATION BID 04/02/17 Aerosols] Allopurinol 200 mg PO DAILY 04/02/17 Amlodipine [Norvasc] 5 mg PO DAILY 04/02/17 Lorazepam [Ativan] 0.5 mg PO TID PRN PRN 04/02/17 Ropinirole HCl [Requip] 0.25 mg PO QHS PRN 04/02/17 Insulin NPH Human [Humulin N Pen] 50 units SC BID pen 04/03/17 Furosemide [Lasix] 20 mg PO BID 05/10/17 Insulin Regular, Human [Humulin R] 45 unit SQ BID 05/10/17 Calcitriol [Rocaltrol] 0.25 mcg PO DAILY 05/17/17 Surgical History: noncontributory, angioplasty, - Lives: Spouse/ Significant Other Smoking Status: Never smoker Alcohol: None Drugs: None - *Family History Paternal History Items: No pertinent history Sibling History Items: Cancer, Diabetes, Heart Disease Maternal History Items: No pertinent history Review of Systems Constitutional: Reports: - - complete ROS negative except as documented in HPI Patient Problems: Active and Suspected Problems (Last Reviewed 04/24/17 @ 11:17 by Mei Baum NP-C) Community acquired pneumonia (Acute) Tremors of nervous system (Acute) - Physical Exam General: Alert, Oriented x3, Cooperative HEENT: Atraumatic, PERRLA, EOMI, Normocephalic Neck: Supple Lungs: Wheezes Cardiovascular: Regular rate Abdomen: Bowel Sounds Present Extremities: Edema Skin: No rashes Musculoskeletal: No Tenderness to Palpation of Joints or Extremities Neurological: - - consious, alert, CN 2-12 grossly intact, power 5/5 in all 4 extremities, tone normal in all extremities, fine head tremors present, mild fine tremors on outstreched hands, Reflexes + B/L B/S/T/K/A, plantars B/L flexor , gait mildy wide based, no shuffling at present, No sensory loss, no cerebellar signs. Psych/Mental Status: Normal Affect, Appropriate Vital Signs Temp Pulse Resp BP Pulse Ox 98.2 F 83 20 H 136/59 H 96 05/19/17 14:00 05/19/17 14:00 05/19/17 14:00 05/19/17 14:00 05/19/17 14:00 Oxygen Flow Rate (L/min) 3.5 Oxygen Delivery Method Nasal Cannula Weight: 94 kg Body Mass Index (BMI) 35.3 Intake and Output for Last 24 Hours 05/17/17 05/18/17 05/19/17 23:59 23:59 23:59 Intake Total 2459 / 2459 937 / 937 Output Total 650 / 650 Balance 1809 / 1809 937 / 937 Microbiology Past 72 Hours 05/18/17 16:15 Gram Stain - Preliminary Sputum, Expectorated/Coughed Respiratory Culture - Preliminary Culture exhibits no growth. 05/18/17 10:30 Urine Culture - Preliminary Urine, Catheterized Culture exhibits no growth. 05/17/17 23:00 Respiratory Panel (PCR) - Final Mucosa - Nose RSV B 05/17/17 23:00 Influenza Types A,B Direct FA (ESME) - Final Mucosa - Nose Laboratory Tests Past 24 Hrs 05/19/17 09:00 Hemoglobin A1c 8.5 H POC Glucose 05/19/17 05/19/17 05/19/17 12:27 11:46 08:23 POC Glucose 155 H 181 H 110 05/19/17 05/18/17 05/18/17 06:43 22:30 16:17 POC Glucose 93 79 157 H Assessment/Plan Active and Suspected Problems (Last Reviewed 04/24/17 @ 11:17 by Mei Baum NP-C) Community acquired pneumonia (Acute) Tremors of nervous system (Acute) The patient is a 77 year old CF with PMH HTN, HLD, DM, CAD s/p CABG and stents, hypothyroidism, ALYCE, morbid obesity, Asthma, RA admitted with cough and dyspnea , found to have RSV B PNA. Neurology consulted for tremors. Per patient she has been having tremors for about 10 yrs now, had head tremors initially, then had tremors in both hands mostly when she is trying to do some work, tremors get worse when she takes inhaler medications per patient, denies any REM behavior d/ o, visual hallucinations, frequent falls, bradykinesia, or resting tremors at present. She uses a walker to ambulate long distances, does not drive, does not need assistance for her ADLs per patient. At present she denies any new focal motor weakness, sensory loss, visual disturbances or speech disturbances. Impression Likely Essential tremors Medication induced tremors (sympathomimetics) Plan -Discussed medication options with patient in detail but she would like the current respiratory issues to be controlled first before trying any medication for tremors, agreed with the patient, and she can follow up Neurology as outpatient for further evaluation and management of tremors. -Recommend Vitamin B12 level, TSH, LFTs, S. Copper and ceruloplasmin level -Further medical management per primary team -Fall precautions -GI/DVT prophylaxis -Follow up with Neurology as outpatient -Please call with questions if any -Thank you for allowing us to participate in patient's care and management I spent 60 minutes taking history, doing physical examination, reviewing medical records, coordinating care and counseling the patient. Code Visit Inpatient E&M: [id number] Init Hosp L3
[2017-05-19] MEDS: BENZOCAINE/MENTHOL 1 LOZENGE 2 LOZENGE MUCOUS MEM ×2 (15:41→22:44)
[2017-05-19 17:03] LABS: AST(SGOT) 34 U/L (15-37); Alanine Aminotransfer ALT/SGPT 18 U/L (13-56); Alkaline Phosphatase 84 U/L (45-117); Bilirubin, Direct 0.09 mg/dL (0.00-0.30); Globulin 4.1 g/dL (2.2-4.2); Protein, Total 7.1 g/dL (6.4-8.2)
[2017-05-19 17:10] LABS: Bedside Glucose 190 mg/dL (70-110)
[2017-05-19] MEDS: Insulin NPH Human 100 UNITS/ML PEN 35 UNITS SC (17:15)
[2017-05-19] MEDS: MELATONIN 3 MG TABLET PO (22:26)
[2017-05-19] MEDS: Azithromycin 250 MG Tablet 500 MG PO (22:26)
[2017-05-19] MEDS: Pravastatin 80 MG Tablet PO (22:27)
[2017-05-19 22:45] LABS: Bedside Glucose 367 mg/dL (70-110)
[2017-05-20] VITALS (18 sets, daily range): BP systolic 129–156; BP diastolic 64–93; PULSE 75–97; RESP 18–20; TEMP 36.7–37.1; O2SAT 93–97
[2017-05-20] MEDS: 0.9% NaCl Peripheral Flush Adult/Peds IV ×2 (05:09→13:49)
[2017-05-20 06:07] LABS: Hematocrit 34.9 % (37-47); Hemoglobin 11.1 g/dl (12.0-15.0); Mean Corp Hgb Conc 31.8 g/gl (32-36); Mean Corpuscular Hgb 28.7 pg (27.0-32.0); Mean Corpuscular Volume 90.2 fL (81-99); Mean Platelet Vol. 10.3 fl (6.2-12.0); Platelet Count 176 K/mm3 (150-450); RBC Distribution Width CV 13.5 % (11.6-14.6); RBC Distribution Width SD 44.1 fl (35.1-43.9); Red Blood Count 3.87 M/mm3 (4.2-5.4); White Blood Count 7.2 K/mm3 (4.4-11.0)
[2017-05-20 06:12] LABS: Scan Indicated on CBC? Y/N NO
[2017-05-20 06:17] LABS: Anion Gap 7 (5-15); BUN 24 mg/dL (7-18); BUN/Creat Ratio 17.1 RATIO (10-20); Calcium,Total 8.6 mg/dL (8.5-10.1); Chloride 101 mmol/L (98-107); EST Glomerular Filtration Rate 39 mL/min (>60); Est Glom Filt Rate - Afr Amer 47 mL/min (>60); Estimated Creatinine Clearance 28.28 ml/min; Glucose 338 mg/dL (74-106); Potassium 4.5 mmol/L (3.5-5.1); Sodium Level 138 mmol/L (136-145)
[2017-05-20] MEDS: Ipratropium/Albuterol Sulfate 3 ML AMPUL.NEB INHALATION ×4 (07:15→20:30)
[2017-05-20] MEDS: Insulin NPH Human 100 UNITS/ML PEN 35 UNITS SC ×2 (08:09→16:39)
[2017-05-20 08:15] LABS: Bedside Glucose 340 mg/dL (70-110)
[2017-05-20] MEDS: Aspirin 81 MG TAB.CHEW PO (08:17)
[2017-05-20] MEDS: Allopurinol 100 MG Tablet 200 MG PO (08:17)
[2017-05-20 09:49] LABS: Vitamin B12 218 pg/mL (211-911)
[2017-05-20] MEDS: amLODIPine 5 MG Tablet PO (10:34)
[2017-05-20] MEDS: Isosorbide Mononitrate 60 MG Tablet PO (10:34)
[2017-05-20] MEDS: Clopidogrel Bisulfate 75 MG Tablet PO (10:34)
[2017-05-20] MEDS: Furosemide 40 MG Tablet PO (10:34)
[2017-05-20] MEDS: Pantoprazole Sodium 40 MG Tablet PO (10:34)
[2017-05-20] MEDS: Calcitriol 0.25 MCG Capsule PO (10:34)
[2017-05-20] MEDS: Metoprolol Tartrate 50 MG Tablet PO ×2 (10:34→21:41)
[2017-05-20] MEDS: guaiFENesin 1,200 MG Tablet 1200 MG PO ×2 (10:34→21:41)
[2017-05-20 11:30] LABS: Bedside Glucose 387 mg/dL (70-110)
[2017-05-20] MEDS: BENZOCAINE/MENTHOL 1 LOZENGE 2 LOZENGE MUCOUS MEM ×2 (13:59→22:15)
[2017-05-20] MEDS: LORazepam 0.5 MG Tablet PO ×2 (16:37→23:55)
[2017-05-20 16:56] LABS: Bedside Glucose 169 mg/dL (70-110)
--- NOTE | 2017-05-20 17:41 | PCM.PROGNOTE ---
Patient Problems: Active and Suspected Problems (Last Reviewed 04/24/17 @ 11:17 by ANNY Medina) Community acquired pneumonia (Acute) Tremors of nervous system (Acute) Subjective: Afebrile. Vital signs are stable. She is 95-96% saturated on 3-1/2 L nasal cannula. White blood cell count today is 7.2. Hemoglobin is stable at 11.1 and platelets are within normal limits. BUN is 24 and the creatinine is 1.4 which is up from 1.26 at admission but still within her baseline. Blood sugars have been elevated secondary to high-dose steroids but her blood sugar currently is 169. Urine culture has no growth and the sputum culture has normal respiratory dario but the final is still pending. The swallowing study showed transient penetration with ejection upon ingestion of thin liquids. She tells me today that she would like to try the Primidone for suspected essential tremor Her breathing is improving. She has a few large areas of ecchymosis on the abdomen from the Heparin injections - Physical Exam General: Alert, Oriented x3, Cooperative, No apparent distress Neck: No Nuchal Rigidity, Trachea Midline Lungs: - - Musch better air exchange today. Still with rare expiratory wheezing.....She has this over the trachea when the head is flexed on the chest. No rales. No conversational dyspnea. No tachypneic.....Was able to lean forward in the bed without becoming labored Cardiovascular: Regular rate, Regular Rhythm, Normal S1, Normal S2, No Gallop Abdomen: Bowel Sounds Present, Soft, Non Tender, Non-Distended, Obese Extremities: Edema - mild Skin: No rashes, No breakdown Psych/Mental Status: Normal Affect, Appropriate Vital Signs Temp Pulse Resp BP Pulse Ox 98.0 F 82 20 H 129/75 H 95 05/20/17 16:46 05/20/17 16:54 05/20/17 16:46 05/20/17 16:46 05/20/17 16:46 Oxygen Flow Rate (L/min) 3.5 Oxygen Delivery Method Nasal Cannula Weight: 205 lb 0.478 oz Body Mass Index (BMI) 35.3 Intake and Output for Last 24 Hours 05/18/17 05/19/17 05/20/17 23:59 23:59 23:59 Intake Total 2459 / 2459 2188 / 2188 1100 / 1100 Output Total 650 / 650 450 / 450 400 / 400 Balance 1809 / 1809 1738 / 1738 700 / 700 Microbiology Past 72 Hours 05/18/17 16:15 Gram Stain - Final Sputum, Expectorated/Coughed Respiratory Culture - Preliminary 05/17/17 22:20 Blood Culture - Preliminary Blood Culture (Wb) - Anticubital Right No growth in 48 hours. 05/18/17 10:30 Urine Culture - Final Urine, Catheterized Culture exhibits no growth. 05/17/17 23:00 Respiratory Panel (PCR) - Final Mucosa - Nose RSV B 05/17/17 23:00 Influenza Types A,B Direct FA (ESME) - Final Mucosa - Nose Laboratory Tests Past 24 Hrs 05/19/17 05/20/17 05/20/17 16:04 05:24 05:24 WBC 7.2 RBC 3.87 L Hgb 11.1 L Hct 34.9 L MCV 90.2 MCH 28.7 MCHC 31.8 L RDW 13.5 RDW Differential 44.1 H Plt Count 176 MPV 10.3 Sodium 138 Potassium 4.5 Chloride 101 Carbon Dioxide 30.0 Anion Gap 7 BUN 24 H Creatinine 1.40 H Estim Creat Clear Calc 28.28 Est GFR (MDRD) Af Amer 47 L Est GFR (MDRD) Non-Af 39 L BUN/Creatinine Ratio 17.1 Glucose 338 H Calcium 8.6 Magnesium 2.0 Vitamin B12 218 POC Glucose 05/20/17 05/20/17 05/20/17 16:35 11:17 07:58 POC Glucose 169 H 387 H 340 H 05/19/17 22:23 POC Glucose 367 H Assessment/Plan Active and Suspected Problems (Last Reviewed 04/24/17 @ 11:17 by Mei Baum, LIQUID COMPOUNDER-C) Community acquired pneumonia (Acute) Tremors of nervous system (Acute) Day #2 azithromycin and Rocephin Impressions 1. Viral CAP due to RSV 2. ABNORMAL UA - suspect contaminated. Straight cath with UA and culture ordered 3. Chronic renal failure stage III - discontinue nonsteroidal anti-inflammatory drugs 4. Morbid obesity 5. Obstructive sleep apnea - tells me that she has never had a PSG? not on CPAP or BIPAP. Has RLS and is always tired, poor memory 6. suspected essential tremor 7. Hypothyroidism/dyslipidemia/coronary artery disease/pulmonary hypertension/rheumatoid arthritis/IBS/GERD/diabetes mellitus type 2/hypertension/restless leg syndrome/tremors These conditions complicate care, management, recovery and prognosis. Start Primidone 25 mg Q HS Transition to Prednisone B12 is barely normal - will start a B12 supplement Needs to follow up with pulmonary medicine 2 weeks post DC to arrange a PSG and PFT's Possible Dc in the next 24 - 48H. check a Pulse ox on 3-4 Liters with ambulation in the AM Code Visit Inpatient E&M: 45381 Subs Hosp L2
--- NOTE | 2017-05-20 17:45 | PN_ITS ---
Patient Problems: Active and Suspected Problems (Last Reviewed 04/24/17 @ 11:17 by ANNY Medina) Community acquired pneumonia (Acute) Tremors of nervous system (Acute) Subjective: Afebrile. Vital signs are stable. She is 95-96% saturated on 3-1/2 L nasal cannula. White blood cell count today is 7.2. Hemoglobin is stable at 11.1 and platelets are within normal limits. BUN is 24 and the creatinine is 1.4 which is up from 1.26 at admission but still within her baseline. Blood sugars have been elevated secondary to high-dose steroids but her blood sugar currently is 169. Urine culture has no growth and the sputum culture has normal respiratory dario but the final is still pending. The swallowing study showed transient penetration with ejection upon ingestion of thin liquids. She tells me today that she would like to try the Primidone for suspected essential tremor Her breathing is improving. She has a few large areas of ecchymosis on the abdomen from the Heparin injections - Physical Exam General: Alert, Oriented x3, Cooperative, No apparent distress Neck: No Nuchal Rigidity, Trachea Midline Lungs: - - Musch better air exchange today. Still with rare expiratory wheezing.....She has this over the trachea when the head is flexed on the chest. No rales. No conversational dyspnea. No tachypneic.....Was able to lean forward in the bed without becoming labored Cardiovascular: Regular rate, Regular Rhythm, Normal S1, Normal S2, No Gallop Abdomen: Bowel Sounds Present, Soft, Non Tender, Non-Distended, Obese Extremities: Edema - mild Skin: No rashes, No breakdown Psych/Mental Status: Normal Affect, Appropriate Vital Signs Temp Pulse Resp BP Pulse Ox 98.0 F 82 20 H 129/75 H 95 05/20/17 16:46 05/20/17 16:54 05/20/17 16:46 05/20/17 16:46 05/20/17 16:46 Oxygen Flow Rate (L/min) 3.5 Oxygen Delivery Method Nasal Cannula Weight: 205 lb 0.478 oz Body Mass Index (BMI) 35.3 Intake and Output for Last 24 Hours 05/18/17 05/19/17 05/20/17 23:59 23:59 23:59 Intake Total 2459 / 2459 2188 / 2188 1100 / 1100 Output Total 650 / 650 450 / 450 400 / 400 Balance 1809 / 1809 1738 / 1738 700 / 700 Microbiology Past 72 Hours 05/18/17 16:15 Gram Stain - Final Sputum, Expectorated/Coughed Respiratory Culture - Preliminary 05/17/17 22:20 Blood Culture - Preliminary Blood Culture (Wb) - Anticubital Right No growth in 48 hours. 05/18/17 10:30 Urine Culture - Final Urine, Catheterized Culture exhibits no growth. 05/17/17 23:00 Respiratory Panel (PCR) - Final Mucosa - Nose RSV B 05/17/17 23:00 Influenza Types A,B Direct FA (ESME) - Final Mucosa - Nose Laboratory Tests Past 24 Hrs 05/19/17 05/20/17 05/20/17 16:04 05:24 05:24 WBC 7.2 RBC 3.87 L Hgb 11.1 L Hct 34.9 L MCV 90.2 MCH 28.7 MCHC 31.8 L RDW 13.5 RDW Differential 44.1 H Plt Count 176 MPV 10.3 Sodium 138 Potassium 4.5 Chloride 101 Carbon Dioxide 30.0 Anion Gap 7 BUN 24 H Creatinine 1.40 H Estim Creat Clear Calc 28.28 Est GFR (MDRD) Af Amer 47 L Est GFR (MDRD) Non-Af 39 L BUN/Creatinine Ratio 17.1 Glucose 338 H Calcium 8.6 Magnesium 2.0 Vitamin B12 218 POC Glucose 05/20/17 05/20/17 05/20/17 16:35 11:17 07:58 POC Glucose 169 H 387 H 340 H 05/19/17 22:23 POC Glucose 367 H Assessment/Plan Active and Suspected Problems (Last Reviewed 04/24/17 @ 11:17 by Mei Baum, SPOT MACHINE OPERATOR-C) Community acquired pneumonia (Acute) Tremors of nervous system (Acute) Day #2 azithromycin and Rocephin Impressions 1. Viral CAP due to RSV 2. ABNORMAL UA - suspect contaminated. Straight cath with UA and culture ordered 3. Chronic renal failure stage III - discontinue nonsteroidal anti- inflammatory drugs 4. Morbid obesity 5. Obstructive sleep apnea - tells me that she has never had a PSG? not on CPAP or BIPAP. Has RLS and is always tired, poor memory 6. suspected essential tremor 7. Hypothyroidism/dyslipidemia/coronary artery disease/pulmonary hypertension/ rheumatoid arthritis/IBS/GERD/diabetes mellitus type 2/hypertension/restless leg syndrome/tremors These conditions complicate care, management, recovery and prognosis. Start Primidone 25 mg Q HS Transition to Prednisone B12 is barely normal - will start a B12 supplement Needs to follow up with pulmonary medicine 2 weeks post DC to arrange a PSG and PFT's Possible Dc in the next 24 - 48H. check a Pulse ox on 3-4 Liters with ambulation in the AM Code Visit Inpatient E&M: 93001 Subs Hosp L2
--- NOTE | 2017-05-20 19:05 | RAD_ITS ---
STUDY: X-RAY CHEST REASON FOR EXAM: Female, 77 years old. Dyspnea TECHNIQUE: Frontal and lateral views COMPARISON: May 18, 2017 FINDINGS: Sternotomy wires are present. There is elevation of the right hemidiaphragm. The lungs are not fully expanded. There is right basilar atelectasis. Possible right perihilar mild opacity, less than previous study. Normal size heart. Normal mediastinum and billy. Normal visualized pulmonary arteries. Normal visualized aortic arch and descending thoracic aorta. Degenerative changes of the thoracic spine. Normal visualized ribs, clavicles, and shoulders. There is no demonstrated abnormality of the visualized soft tissue structures of the upper abdomen. RAD/Chest PA and Lateral IMPRESSION: Mild right perihilar density, decreased since the previous study. Mild right basilar atelectasis. Electronically Signed: Mingo Estes DO at 23:54 EDT Tel [phone], Service support ,
[2017-05-20] MEDS: MELATONIN 3 MG TABLET PO (21:41)
[2017-05-20] MEDS: Primidone 50 MG Tablet 25 MG PO (21:41)
[2017-05-20] MEDS: Pravastatin 80 MG Tablet PO (21:41)
[2017-05-20 22:01] LABS: Bedside Glucose 217 mg/dL (70-110)
[2017-05-21] VITALS (18 sets, daily range): BP systolic 148–157; BP diastolic 64–69; PULSE 71–111; RESP 18–24; TEMP 36.5–36.8; O2SAT 92–99
--- NOTE | 2017-05-21 03:30 | NURSING ---
This RN notified about pt falling in bathroom. Dr. Aponte and family notified. Assessment completed. Will continue to monitor.
[2017-05-21] MEDS: Ipratropium/Albuterol Sulfate 3 ML AMPUL.NEB INHALATION ×7 (03:40→23:07)
[2017-05-21] MEDS: HYDROcodone Bitartrate/Apap 5/325 Tablet PO (04:27)
[2017-05-21] MEDS: BENZOCAINE/MENTHOL 1 LOZENGE 2 LOZENGE MUCOUS MEM (04:28)
--- NOTE | 2017-05-21 05:54 | NURSING ---
This RN responded to granddaughter requesting to speak with nurse. RN spoke with family about recent fall. family requesting xrays. contacted Dr. Aponte see orders.
--- NOTE | 2017-05-21 05:58 | CT_ITS ---
STUDY: CT BRAIN WITHOUT CONTRAST REASON FOR EXAM: Female, 77 years old. Patient fell RADIATION DOSAGE (If Supplied By Facility): CTDIvol = ( 44.99 ) mGy, DLP = ( 745.49 ) mGycm TECHNIQUE: Transaxial CT imaging of the brain was performed without administration of intravenous contrast material. Individualized dose optimization techniques were used for this CT. COMPARISON: None. FINDINGS: Normal soft tissue structures. Normal calvarium. Normal size ventricles and extra-axial spaces for the patient's age. Normal white matter tracts of the cerebral hemispheres. Normal basal ganglia and thalami. Normal brainstem. Normal cerebellum. There is no intracranial hemorrhage. There are no findings of an acute ischemic infarction. Normal visualized paranasal sinuses. CT/Brain/Head without Contrast IMPRESSION: Normal unenhanced CT scan of the brain. No acute findings in the brain Electronically Signed: Frandy Jauregui, at 7:32 EDT Tel , Service support ,
--- NOTE | 2017-05-21 05:58 | CT_ITS ---
STUDY: CT CERVICAL SPINE WITHOUT CONTRAST REASON FOR EXAM: Female, 77 years old. Cervical pain following a fall. RADIATION DOSAGE (If Supplied By Facility): CTDIvol = ( 29.71 ) mGy, DLP = ( 502.52 ) mGycm TECHNIQUE: High resolution transaxial imaging was performed without contrast material. Sagittal and coronal images were reconstructed. Individualized dose optimization techniques were used for this CT. COMPARISON: None FINDINGS: Normal craniovertebral junction. There are degenerative changes of the anterior atlantoaxial articulation. Normal odontoid process. Normal cervical lordosis. Normal vertebral bodies and posterior osseous elements. C2-3: Mild anterior spondylosis along the inferior aspect of the C2 vertebrae. Facet joint osteoarthritis and hypertrophy worse on the right side. C3-4: Facet joint osteoarthritis and hypertrophy. No significant stenosis is seen. Mild anterior spondylosis. C4-5: Marked degree of disc space narrowing and disc degeneration. Uncovertebral arthrosis. Facet joint osteoarthritis and hypertrophy worse on the left side. No significant stenosis is seen. C5-6: Minimal anterior listhesis of C5 on C6. Disc space narrowing. Mild anterior spondylosis. Uncovertebral arthrosis. C6-7: Moderate degree of anterior spondylosis. Disc space narrowing. Bilateral neural foraminal stenosis. Facet joint osteoarthritis and hypertrophy. Atherosclerotic calcification of the carotid bifurcations bilaterally. CT/Spine Cervical without Contras IMPRESSION: Multilevel degenerative changes, as described above. Electronically Signed: Steve Ferreira MD at 8:42 EDT Tel [phone], Service support ,
--- NOTE | 2017-05-21 06:00 | PCM.HOSP.N ---
Hospitalist Note Contacted per staff earlier in the morning w/ patient fall from toilet, initially described is fall while attempting to wipe with no head trauma. Complained of mild discomfort to the buttock region initially. On follow-up patient now with thoracic discomfort left sided, sore neck with discomfort to tongue secondary to fall with tongue bite (no teeth) and sore left hip. Given unclear fall history, although patient alert and can note no head trauma to be cautious also per family request will obtain CT head and neck, plain film thoracic region, plain film pelvis and hip. Will discuss with Dr. Peña.
--- NOTE | 2017-05-21 06:08 | RAD_ITS ---
STUDY: X-RAY - PELVIS AND BILATERAL HIPS REASON FOR EXAM: Female, 77 years old. Bilateral hip pain following a recent fall. TECHNIQUE: Radiological exam, hip, bilateral, with pelvis when performed; 2 views COMPARISON: None. FINDINGS: There is a non-specific bowel gas pattern. There are atherosclerotic vascular calcifications of the pelvic arteries. Normal bilateral iliac wings, sacroiliac joints and visualized sacrum. Normal bilateral superior and inferior pubic rami. Normal pubic symphysis. Normal bilateral ischial tuberosities. Normal visualized right femoral head. There is osteoarthritic spur formation of the right acetabular rim. There is moderate articular joint space narrowing of the right hip. Normal visualized left femoral head. Normal left acetabulum. There is moderate articular joint space narrowing of the left hip. RAD/Hips B/L min 2 views w/ Pelvis IMPRESSION: Degenerative changes of both hip joints. No fracture or dislocation is seen. Electronically Signed: Steve Ferreira MD at 9:46 EDT Tel [phone], Service support ,
--- NOTE | 2017-05-21 06:08 | RAD_ITS ---
STUDY: X-RAY - LUMBAR SPINE REASON FOR EXAM: Female, 77 years old. Back pain following a fall. TECHNIQUE: AP and lateral view(s) of the lumbar spine were obtained. COMPARISON: None FINDINGS: Normal lumbar lordosis. There is no substantial scoliosis. There is a normal alignment of the vertebrae. There is multilevel endplate spondylosis of the lumbar vertebrae. There is multi-level degenerative disc disease with multi-level disc space narrowing. There is atherosclerotic calcification of the abdominal aorta without a demonstrated aneurysm. Oral contrast is seen within the colon from prior barium examination. RAD/Lumbar Spine 2 or 3 Views IMPRESSION: Degenerative changes of the spine, as detailed above. Electronically Signed: Steve Ferreira MD at 10:16 EDT Tel [phone], Service support ,
--- NOTE | 2017-05-21 06:08 | RAD_ITS ---
STUDY: X-RAY - THORACIC SPINE REASON FOR EXAM: Female, 77 years old. Back pain following a fall. TECHNIQUE: 3 view(s) of the thoracic spine were obtained. COMPARISON: None. FINDINGS: There is an increase in the normal thoracic kyphosis. There is no substantial scoliosis. There is demineralization of the thoracic spine with endplate spondylosis. There is multilevel disc space narrowing of the thoracic spine. The soft tissue structures are unremarkable. RAD/Thoracic Spine 3 Views IMPRESSION: Multilevel disc space narrowing. No fracture is seen. Electronically Signed: Steve Ferreira MD at 9:46 EDT Tel [phone], Service support ,
--- NOTE | 2017-05-21 06:18 | NURSING ---
Called radiology. They only have 1 person in radiology and CT so they can't do it right now.
[2017-05-21] MEDS: Cyanocobalamin 500 MCG Tablet 1000 MCG PO (08:42)
[2017-05-21] MEDS: Aspirin 81 MG TAB.CHEW PO (08:42)
[2017-05-21] MEDS: Insulin NPH Human 100 UNITS/ML PEN 35 UNITS SC ×2 (08:42→16:24)
[2017-05-21 09:01] LABS: Bedside Glucose 246 mg/dL (70-110)
[2017-05-21 10:08] LABS: Hemoglobin 10.7 g/dl (12.0-15.0); Mean Corp Hgb Conc 30.6 g/gl (32-36); Mean Corpuscular Hgb 27.8 pg (27.0-32.0); Mean Corpuscular Volume 90.9 fL (81-99); Platelet Count 190 K/mm3 (150-450); RBC Distribution Width CV 13.8 % (11.6-14.6); RBC Distribution Width SD 45.9 fl (35.1-43.9); Red Blood Count 3.85 M/mm3 (4.2-5.4); Scan Indicated on CBC? Y/N NO; White Blood Count 12.2 K/mm3 (4.4-11.0)
[2017-05-21 10:24] LABS: Anion Gap 7 (5-15); BUN 42 mg/dL (7-18); BUN/Creat Ratio 27.3 RATIO (10-20); Calcium,Total 8.8 mg/dL (8.5-10.1); Chloride 103 mmol/L (98-107); Creatinine, Serum 1.54 mg/dL (0.55-1.02); EST Glomerular Filtration Rate 35 mL/min (>60); Est Glom Filt Rate - Afr Amer 42 mL/min (>60); Estimated Creatinine Clearance 25.71 ml/min; Glucose 298 mg/dL (74-106); Magnesium 2.1 mg/dL (1.6-2.6); Potassium 4.2 mmol/L (3.5-5.1); Sodium Level 141 mmol/L (136-145)
[2017-05-21] MEDS: Allopurinol 100 MG Tablet 200 MG PO (10:43)
[2017-05-21] MEDS: amLODIPine 5 MG Tablet PO (10:43)
[2017-05-21] MEDS: guaiFENesin 1,200 MG Tablet 1200 MG PO ×2 (10:43→22:28)
[2017-05-21] MEDS: Furosemide 40 MG Tablet PO (10:43)
[2017-05-21] MEDS: Isosorbide Mononitrate 60 MG Tablet PO (10:43)
[2017-05-21] MEDS: Clopidogrel Bisulfate 75 MG Tablet PO (10:43)
[2017-05-21] MEDS: Metoprolol Tartrate 50 MG Tablet PO ×2 (10:43→22:28)
[2017-05-21] MEDS: Calcitriol 0.25 MCG Capsule PO (10:43)
[2017-05-21] MEDS: Pantoprazole Sodium 40 MG Tablet PO (10:43)
[2017-05-21 11:46] LABS: Bedside Glucose 318 mg/dL (70-110)
[2017-05-21] MEDS: LORazepam 0.5 MG Tablet PO (16:19)
--- NOTE | 2017-05-21 16:20 | NURSING ---
called to the room by CHIDI Ricci. arrived in room w/ primary RN tony. pt agitated, noted to be sitting on side of bed with legs dangling. Granddaughter sitting in blue chair at pt's side in front of computer. Pt verbalized anger that the side rail was up stated she had called out and it took 5minutes for aide to enter her room. Granddaughter verbalized upset that she had been told by staff that she wasn't to be assisting pt to the bathroom. also verbalized that pt had stated when she put on her call light she couldn't breath. Patient and grand daughter assured this nurse was not aware of this statement when call light was placed. instructed grand daughter on ways to get assistance by phone if situtation occurs of this nature. discussed pt's safety, her previous fall, rationale for wanting a staff member to be with her when out of bed. discussed the safety of side rail and rational for request for side rail to be up. discussed ways to provide safety without making patient feel confined. discussed if physician had rounded on patient yet. aware bedexit will be maintained and that when granddaughter is at bedside pt may be sitting up on side of bed. aware staff to still assist pt to bathroom. discussed with patient then discussed with pattern chain maker supervisor if pt puts systems applications programming lead light to notify charge nurse or primary RN immediately as we were not informed of breathing issue. primary RN remains with pt, pt denies further needs at present. Dr. Peña informed of pt's and grand daughters request to see her. aware she will come when she can, primary RN informed by pattern chain maker supervisor
[2017-05-21 16:45] LABS: Bedside Glucose 275 mg/dL (70-110)
--- NOTE | 2017-05-21 18:40 | RAD_ITS ---
STUDY: X-RAY CHEST REASON FOR EXAM: Female, 77 years old. Cough, pneumonia TECHNIQUE: Frontal and lateral views COMPARISON: May 20, 2017 FINDINGS: Stable sternotomy wires. The lungs are not fully expanded. Elevated right hemidiaphragm is again noted. There is basilar atelectasis and interstitial prominence bilaterally. Previously noted right perihilar density is not appreciated. Mildly enlarged heart. Normal mediastinum and billy. Normal visualized pulmonary arteries. Normal visualized aortic arch and descending thoracic aorta. Degenerative changes of the thoracic spine. Normal visualized ribs, clavicles, and shoulders. There is no demonstrated abnormality of the visualized soft tissue structures of the upper abdomen. RAD/Chest PA and Lateral IMPRESSION: Basilar atelectasis and interstitial prominence. Elevated right hemidiaphragm. Electronically Signed: Mingo Estes DO at 19:18 EDT Tel [phone], Service support ,
[2017-05-21] MEDS: Furosemide 40 MG/4 ML Vial IV (20:06)
[2017-05-21] MEDS: MELATONIN 3 MG TABLET PO (22:28)
[2017-05-21] MEDS: Pravastatin 80 MG Tablet PO (22:28)
[2017-05-21] MEDS: busPIRone 5 MG Tablet PO (22:28)
[2017-05-21 23:01] LABS: Bedside Glucose 405 mg/dL (70-110)
--- NOTE | 2017-05-21 23:02 | PN_ITS ---
Subjective: She fell today while in the BR. All XRAY were negative for fx. She was seen by guillermina beck earlier today. she is having more labored breathing today and appears more pale. she continues to have a cough with deep breath. She remains afebrile and vital signs are stable. She is 96-97% saturated on a 3.5 L nasal cannula. Denies chest pain. - Physical Exam General: Alert, Cooperative HEENT: Atraumatic Oral: Moist Mucosa, - - she bit her tongue when she feel today Neck: Supple, No Nuchal Rigidity, Trachea Midline Lungs: No rales, Diminished - she has decreased air exchange today when compared to yeaterday and there is increased tight expiratory wheezing. No rales. she is tachypneic but has no conversational dyspnea Cardiovascular: Regular rate, Regular Rhythm, Normal S1, Normal S2, No Gallop Abdomen: Bowel Sounds Present, Soft, Non Tender, Non-Distended, Obese Extremities: No cyanosis, No edema Neurological: Cranial nerves II-XII grossly intact, Neuro grossly intact Vital Signs Temp Pulse Resp BP Pulse Ox 97.7 F L 93 20 H 148/68 H 96 05/21/17 22:00 05/21/17 22:28 05/21/17 22:00 05/21/17 22:28 05/21/17 22:00 Oxygen Flow Rate (L/min) 3.5 Oxygen Delivery Method Nasal Cannula Weight: 205 lb 0.478 oz Body Mass Index (BMI) 35.3 Intake and Output for Last 24 Hours 05/19/17 05/20/17 05/21/17 23:59 23:59 23:59 Intake Total 2188 / 2188 1100 / 1100 1060 / 1060 Output Total 450 / 450 400 / 400 Balance 1738 / 1738 700 / 700 1060 / 1060 Microbiology Past 72 Hours 05/18/17 16:15 Gram Stain - Final Sputum, Expectorated/Coughed Respiratory Culture - Final 05/17/17 22:20 Blood Culture - Preliminary Blood Culture (Wb) - Anticubital Right No growth in 48 hours. 05/18/17 10:30 Urine Culture - Final Urine, Catheterized Culture exhibits no growth. Laboratory Tests Past 24 Hrs 05/21/17 05/21/17 09:55 09:55 WBC 12.2 H RBC 3.85 L Hgb 10.7 L Hct 35.0 L MCV 90.9 MCH 27.8 MCHC 30.6 L RDW 13.8 RDW Differential 45.9 H Plt Count 190 MPV 10.0 Sodium 141 Potassium 4.2 Chloride 103 Carbon Dioxide 31.0 Anion Gap 7 BUN 42 H Creatinine 1.54 H Estim Creat Clear Calc 25.71 Est GFR (MDRD) Af Amer 42 L Est GFR (MDRD) Non-Af 35 L BUN/Creatinine Ratio 27.3 H Glucose 298 H Calcium 8.8 Magnesium 2.1 POC Glucose 05/21/17 05/21/17 05/21/17 16:17 11:36 08:40 POC Glucose 275 H 318 H 246 H Assessment/Plan Impressions 1. Viral CAP due to RSV 2. ABNORMAL UA - suspect contaminated. 3. Chronic renal failure stage III - 4. Morbid obesity 5. Obstructive sleep apnea - tells me that she has never had a PSG? not on CPAP or BIPAP. Has RLS and is always tired, poor memory 6. suspected essential tremor 7. Hypothyroidism/dyslipidemia/coronary artery disease/pulmonary hypertension/ rheumatoid arthritis/IBS/GERD/diabetes mellitus type 2/hypertension/restless leg syndrome/tremors These conditions complicate care, management, recovery and prognosis. continue the [facility] PT and OT consults. She must be able to walk safely if she is going to return home. Her granddaughter lives with her and can assist her at home but the patient be able to use the walker to get around.
[2017-05-22] VITALS (17 sets, daily range): BP systolic 112–171; BP diastolic 45–85; PULSE 66–101; RESP 16–22; TEMP 36.4–36.6; O2SAT 92–100
[2017-05-22] MEDS: Pramipexole Di-HCl 0.125 MG Tablet PO (03:55)
[2017-05-22 06:55] LABS: Bedside Glucose 329 mg/dL (70-110)
[2017-05-22] MEDS: Ipratropium/Albuterol Sulfate 3 ML AMPUL.NEB INHALATION ×5 (07:02→23:04)
[2017-05-22] MEDS: Aspirin 81 MG TAB.CHEW PO (10:24)
[2017-05-22] MEDS: Cyanocobalamin 500 MCG Tablet 1000 MCG PO (10:24)
[2017-05-22] MEDS: guaiFENesin 1,200 MG Tablet 1200 MG PO ×2 (10:25→22:06)
[2017-05-22] MEDS: Clopidogrel Bisulfate 75 MG Tablet PO (10:25)
[2017-05-22] MEDS: amLODIPine 5 MG Tablet PO (10:25)
[2017-05-22] MEDS: busPIRone 5 MG Tablet PO ×2 (10:25→22:07)
[2017-05-22] MEDS: Isosorbide Mononitrate 60 MG Tablet PO (10:25)
[2017-05-22] MEDS: Furosemide 40 MG Tablet PO (10:25)
[2017-05-22] MEDS: Pantoprazole Sodium 40 MG Tablet PO (10:25)
[2017-05-22] MEDS: Allopurinol 100 MG Tablet 200 MG PO (10:25)
[2017-05-22] MEDS: Calcitriol 0.25 MCG Capsule PO (10:26)
[2017-05-22] MEDS: Metoprolol Tartrate 50 MG Tablet PO ×2 (10:30→22:07)
[2017-05-22] MEDS: Insulin NPH Human 100 UNITS/ML PEN 35 UNITS SC ×2 (10:43→17:38)
[2017-05-22] MEDS: HYDROcodone Bitartrate/Apap 5/325 Tablet PO ×2 (10:52→18:01)
[2017-05-22] MEDS: Benzonatate 100 MG Capsule PO ×2 (10:54→18:01)
--- NOTE | 2017-05-22 11:47 | NURSING ---
Informed by Luma Alva, cartridge gauger that pt was assisted to bathroom, while walking from bathroom, pt c/.o chest tightness. Luma RN in room with pt at this time. VS checked, see intervention and texted was placed via cortext to Dr. Peña. This nurse in the room with pt, rates chest tightness 2 out of 10 right now. Approximately 10 min ago it was a 4 out of 10. pt states she sees Dr. Magana and takes nitro at home. Nitro is on home med list but not ordered.
--- NOTE | 2017-05-22 11:54 | EKG12_ITS ---
Test Reason : Blood Pressure : / mmHG Vent. Rate : 070 BPM Atrial Rate : 070 BPM P-R Int : 170 ms QRS Dur : 118 ms QT Int : 404 ms P-R-T Axes : 037 020 169 degrees QTc Int : 436 ms Normal sinus rhythm Anterior infarct (cited on or before 02-APR-2017) ST & T wave abnormality, consider lateral ischemia Abnormal ECG When compared with ECG of 17-MAY-2017 19:44, No significant change was found Confirmed by YVES CURRY, AMBER ([id number]), movie editor KARSON FARRELL ([id number]) on 06/02/2017 1:44:35 PM Referred By: RIVAS Confirmed By:AMBER MARINELLI MD
[2017-05-22 12:05] LABS: Bedside Glucose 434 mg/dL (70-110)
--- NOTE | 2017-05-22 12:46 | NURSING ---
Dr. Peña is aware of 12 lead ekg that was obtained just recently. No new orders. Pt was offered nitro SL by this nurse but doesnt think she needs it now. I know when I need it, but I don't need it now. Dr. Peña also aware of this. VS checked, see intervention. assisted into bathroom and then wants to go back to bed.
--- NOTE | 2017-05-22 15:20 | PCM.PROGNOTE ---
Subjective: She is afebrile with stable VS's. She does not feel as though she is ready to return home yet. She has not been ambulating in the room and she did fall yesterday. she is mostly sedentary....I suspect this is how she is at home as well. - Physical Exam General: Alert, Oriented x3, Cooperative, - - Not moving around very well....fell in the BR the other day. HEENT: Atraumatic, PERRLA, EOMI Oral: Moist Mucosa Neck: Supple Lungs: Diminished, Wheezes, - - No conversational dyspnea at rest. No accessory muscle use. Better air exchange than yesterday. still with expiratory wheezing......essentially clear 2 days ago Cardiovascular: Regular rate, Regular Rhythm, Normal S1, Normal S2, No Gallop Abdomen: Bowel Sounds Present, Soft, Non Tender, Non-Distended, Obese Extremities: No edema Skin: No rashes, No breakdown Neurological: Cranial nerves II-XII grossly intact, Neuro grossly intact Vital Signs Temp Pulse Resp BP Pulse Ox 97.7 F L 67 21 H 114/45 L 96 05/22/17 12:45 05/22/17 12:45 05/22/17 12:45 05/22/17 12:45 05/22/17 12:45 Oxygen Flow Rate (L/min) 3.5 Oxygen Delivery Method Nasal Cannula Weight: 197 lb 5.019 oz Body Mass Index (BMI) 35.3 Intake and Output for Last 24 Hours 05/20/17 05/21/17 05/22/17 23:59 23:59 23:59 Intake Total 1100 / 1100 1060 / 1060 420 / 420 Output Total 400 / 400 Balance 700 / 700 1060 / 1060 420 / 420 Microbiology Past 72 Hours 05/18/17 16:15 Gram Stain - Final Sputum, Expectorated/Coughed Respiratory Culture - Final 05/17/17 22:20 Blood Culture - Preliminary Blood Culture (Wb) - Anticubital Right No growth in 48 hours. 05/18/17 10:30 Urine Culture - Final Urine, Catheterized Culture exhibits no growth. POC Glucose 05/22/17 05/22/17 05/21/17 11:38 06:42 22:33 POC Glucose 434 H 329 H 405 H 05/21/17 16:17 POC Glucose 275 H Medical Necessity - Tobacco Use Smoking Status: Never smoker Assessment/Plan Impressions 1. Viral CAP due to RSV 2. ABNORMAL UA - suspect contaminated. Straight cath with UA and culture ordered 3. Chronic renal failure stage III - discontinue nonsteroidal anti-inflammatory drugs 4. Morbid obesity 5. Obstructive sleep apnea - tells me that she has never had a PSG? not on CPAP or BIPAP. Has RLS and is always tired, poor memory 6. suspected essential tremor 7. Hypothyroidism/dyslipidemia/coronary artery disease/pulmonary hypertension/rheumatoid arthritis/IBS/GERD/diabetes mellitus type 2/hypertension/restless leg syndrome/tremors These conditions complicate care, management, recovery and prognosis. continue the [facility] PT and OT consults. She must be able to walk safely if she is going to return home. Her granddaughter lives with her and can assist her at home but the patient must be able to use the walker to get around. She is very resistatnt to going to longterm for PT/strengthening prior to returning home
--- NOTE | 2017-05-22 15:25 | PN_ITS ---
Subjective: She is afebrile with stable VS's. She does not feel as though she is ready to return home yet. She has not been ambulating in the room and she did fall yesterday. she is mostly sedentary....I suspect this is how she is at home as well. - Physical Exam General: Alert, Oriented x3, Cooperative, - - Not moving around very well....fell in the BR the other day. HEENT: Atraumatic, PERRLA, EOMI Oral: Moist Mucosa Neck: Supple Lungs: Diminished, Wheezes, - - No conversational dyspnea at rest. No accessory muscle use. Better air exchange than yesterday. still with expiratory wheezing......essentially clear 2 days ago Cardiovascular: Regular rate, Regular Rhythm, Normal S1, Normal S2, No Gallop Abdomen: Bowel Sounds Present, Soft, Non Tender, Non-Distended, Obese Extremities: No edema Skin: No rashes, No breakdown Neurological: Cranial nerves II-XII grossly intact, Neuro grossly intact Vital Signs Temp Pulse Resp BP Pulse Ox 97.7 F L 67 21 H 114/45 L 96 05/22/17 12:45 05/22/17 12:45 05/22/17 12:45 05/22/17 12:45 05/22/17 12:45 Oxygen Flow Rate (L/min) 3.5 Oxygen Delivery Method Nasal Cannula Weight: 197 lb 5.019 oz Body Mass Index (BMI) 35.3 Intake and Output for Last 24 Hours 05/20/17 05/21/17 05/22/17 23:59 23:59 23:59 Intake Total 1100 / 1100 1060 / 1060 420 / 420 Output Total 400 / 400 Balance 700 / 700 1060 / 1060 420 / 420 Microbiology Past 72 Hours 05/18/17 16:15 Gram Stain - Final Sputum, Expectorated/Coughed Respiratory Culture - Final 05/17/17 22:20 Blood Culture - Preliminary Blood Culture (Wb) - Anticubital Right No growth in 48 hours. 05/18/17 10:30 Urine Culture - Final Urine, Catheterized Culture exhibits no growth. POC Glucose 05/22/17 05/22/17 05/21/17 11:38 06:42 22:33 POC Glucose 434 H 329 H 405 H 05/21/17 16:17 POC Glucose 275 H Medical Necessity - Tobacco Use Smoking Status: Never smoker Assessment/Plan Impressions 1. Viral CAP due to RSV 2. ABNORMAL UA - suspect contaminated. Straight cath with UA and culture ordered 3. Chronic renal failure stage III - discontinue nonsteroidal anti- inflammatory drugs 4. Morbid obesity 5. Obstructive sleep apnea - tells me that she has never had a PSG? not on CPAP or BIPAP. Has RLS and is always tired, poor memory 6. suspected essential tremor 7. Hypothyroidism/dyslipidemia/coronary artery disease/pulmonary hypertension/ rheumatoid arthritis/IBS/GERD/diabetes mellitus type 2/hypertension/restless leg syndrome/tremors These conditions complicate care, management, recovery and prognosis. continue the [facility] PT and OT consults. She must be able to walk safely if she is going to return home. Her granddaughter lives with her and can assist her at home but the patient must be able to use the walker to get around. She is very resistatnt to going to jail for PT/strengthening prior to returning home
[2017-05-22 16:30] LABS: Bedside Glucose 496 mg/dL (70-110)
[2017-05-22 17:06] LABS: Glucose 543 mg/dL (74-106)
[2017-05-22 19:31] LABS: Bedside Glucose > 500 mg/dL (70-110)
[2017-05-22 19:31] LABS: Bedside Glucose > 500 mg/dL (70-110)
[2017-05-22] MEDS: Pravastatin 80 MG Tablet PO (22:06)
[2017-05-22] MEDS: MELATONIN 3 MG TABLET PO (22:07)
[2017-05-22 22:25] LABS: Bedside Glucose > 500 mg/dL (70-110)
[2017-05-23] VITALS (12 sets, daily range): BP systolic 148–151; BP diastolic 74–78; PULSE 65–89; RESP 17–21; TEMP 36.6; O2SAT 92–96
[2017-05-23 00:04] LABS: Glucose 531 mg/dL (74-106)
[2017-05-23] MEDS: Ipratropium/Albuterol Sulfate 3 ML AMPUL.NEB INHALATION ×4 (02:40→14:22)
[2017-05-23 04:16] LABS: Ceruloplasmin 29.9 mg/dL (19.0-39.0)
[2017-05-23 07:05] LABS: Bedside Glucose 272 mg/dL (70-110)
[2017-05-23] MEDS: guaiFENesin 1,200 MG Tablet 1200 MG PO (10:26)
[2017-05-23] MEDS: Insulin NPH Human 100 UNITS/ML PEN 35 UNITS SC ×2 (10:26→17:24)
[2017-05-23] MEDS: Pantoprazole Sodium 40 MG Tablet PO (10:28)
[2017-05-23] MEDS: Furosemide 40 MG Tablet PO (10:28)
[2017-05-23] MEDS: Calcitriol 0.25 MCG Capsule PO (10:28)
[2017-05-23] MEDS: Clopidogrel Bisulfate 75 MG Tablet PO (10:29)
[2017-05-23] MEDS: Aspirin 81 MG TAB.CHEW PO (10:29)
[2017-05-23] MEDS: busPIRone 5 MG Tablet PO (10:29)
[2017-05-23] MEDS: amLODIPine 5 MG Tablet PO (10:33)
[2017-05-23] MEDS: Allopurinol 100 MG Tablet 200 MG PO (10:33)
[2017-05-23] MEDS: Isosorbide Mononitrate 60 MG Tablet PO (10:33)
[2017-05-23] MEDS: Metoprolol Tartrate 50 MG Tablet PO (10:34)
[2017-05-23] MEDS: Cyanocobalamin 500 MCG Tablet 1000 MCG PO (10:37)
[2017-05-23 12:06] LABS: Bedside Glucose 299 mg/dL (70-110)
[2017-05-23] MEDS: 0.9% NaCl Peripheral Flush Adult/Peds IV (14:30)
--- NOTE | 2017-05-23 14:49 | PCM.PROGNOTE ---
Patient Problems: Active and Suspected Problems (Last Reviewed 04/24/17 @ 11:17 by Mei Baum NP-C) Community acquired pneumonia (Acute) Tremors of nervous system (Acute) Subjective: She continues to be afebrile. Vital signs are stable. She is 93% saturated on room air today. Blood sugars are not adequately controlled secondary to high-dose intravenous steroids. She was seen by physical therapy today and walked 15 feet with a front wheel walker with contact-guard assist. They recommend 24-hour supervision. - Physical Exam Vital Signs Temp Pulse Resp BP Pulse Ox 97.9 F 89 17 151/74 H 93 05/23/17 10:35 05/23/17 14:23 05/23/17 14:23 05/23/17 10:35 05/23/17 10:35 Oxygen Flow Rate (L/min) 4 Oxygen Delivery Method Room Air Weight: 201 lb 0.985 oz Body Mass Index (BMI) 35.3 Intake and Output for Last 24 Hours 05/21/17 05/22/17 05/23/17 23:59 23:59 23:59 Intake Total 1060 / 1060 740 / 740 1020 / 1020 Balance 1060 / 1060 740 / 740 1020 / 1020 Microbiology Past 72 Hours 05/17/17 22:20 Blood Culture - Final Blood Culture (Wb) - Anticubital Right No growth in 5 days. 05/18/17 16:15 Gram Stain - Final Sputum, Expectorated/Coughed Respiratory Culture - Final Laboratory Tests Past 24 Hrs 05/22/17 05/22/17 16:36 23:22 Glucose 543 H* 531 H* POC Glucose 05/23/17 05/23/17 05/22/17 11:47 06:45 22:09 POC Glucose 299 H 272 H > 500 H* 05/22/17 05/22/17 05/22/17 19:25 18:24 16:20 POC Glucose > 500 H* > 500 H* 496 H* Medical Necessity - Tobacco Use Smoking Status: Never smoker Assessment/Plan Active and Suspected Problems (Last Reviewed 04/24/17 @ 11:17 by Mei Baum NP-C) Community acquired pneumonia (Acute) Tremors of nervous system (Acute)
--- NOTE | 2017-05-23 16:20 | DCINST_ITS ---
- Discharge Diagnoses Current Active Problems: Current Active and Chronic Problems (Last Reviewed 04/24/17 @ 11:17 by ANNY Medina) Community acquired pneumonia (Acute) Tremors of nervous system (Acute) You will use the following diet at home:: Calorie/Carbohydrate Controlled ( specify 1200, 1400, etc) - 1600 calorie, 2 GM sodium, low fat Your food should be the consistency of: Regular Your liquids should be the consistency of: Regular/Thin Discharge Activity: - - Avoid exposure to any strong smells such as bleach, cleaning products, strong colognes or perfumes, paint fumes and smoke of any kind. Avoid sudden exposure to cold air because this can cause bronchospasm. You may want to cover your mouth when you go outside in the winter. Avoid exposure to anyone who is sick with a cough or sore throat. Call your doctor if you observe: Fever of 101 or Higher, Shortness of breath, Fainting spells, Chest pain Instructions: MyPlate Worksheet: 1,600 Calories, Visiting a Sleep Clinic, What Are Snoring and Sleep Apnea? Additional Instructions: You should not be taking medications like Xanax and Ativan for anxiety.....in a patient with untreated sleep apnea these medications can further suppress the breathing and lead to problems with the rhythm of the heart and sudden . I started you on a medication called Ritu for anxiety a few days ago and you have been doing fine. I gave you a prescription. I have given you some literature to read on sleep apnea and visiting a sleep lab so you can know what to expect. Try and walk several times a day....even if you can only walk for a few minutes. This will help with the blood sugar control and with weight loss. Losing weight, even 15-20 lbs will really help your breathing and improve your mobility. Allergies/Adverse Reactions: Allergies simvastatin [From Zocor] Allergy (Verified 05/17/17 23:14) Unknown acetaminophen [From Vicodin] Adverse Reaction (Verified 05/17/17 23:14) Vomiting hydrocodone bitartrate [From Vicodin] Adverse Reaction (Verified 05/17/17 23:14) Vomiting AMMONIUM LACTATE Allergy (Uncoded 04/23/17 13:26) Rash Medications to take at Discharge Aspirin [Aspirin, Baby] 81 mg PO DAILY@0800 08/23/13 Clopidogrel Bisulfate [Plavix] 75 mg PO DAILY 08/23/13 Nitroglycerin [Nitrostat] 0.4 mg SL PRN PRN 08/23/13 Omeprazole [Prilosec] 40 mg PO DAILY 08/23/13 Pravastatin [Pravachol] 80 mg PO QHS 08/23/13 Budesonide Aerosol [Pulmicort Respules] 0.25 mg INHALATION Q12H 04/11/14 Oxygen, Home [Home Oxygen] 2 - 4 lpm NASAL DAILY #1 unit 04/26/14 Isosorbide Mononitrate [Imdur] 60 mg PO DAILY #30 tab 12/31/15 Metoprolol Tartrate [Lopressor (beta meredith)] 50 mg PO BID #60 tab 12/31/15 Albuterol Aerosols [Ventolin Aerosols] 2.5 mg INHALATION BID 04/02/17 Allopurinol 200 mg PO DAILY 04/02/17 Amlodipine [Norvasc] 5 mg PO DAILY 04/02/17 Ropinirole HCl [Requip] 0.25 mg PO QHS PRN 04/02/17 Insulin NPH Human [Humulin N Pen] 50 units SC BID pen 04/03/17 Insulin Regular, Human [Humulin R] 45 unit SQ BID 05/10/17 Calcitriol [Rocaltrol] 0.25 mcg PO DAILY 05/17/17 Benzonatate [Tessalon Perle] 100 mg PO 4X/DAY PRN PRN #20 cap 05/23/17 Cyanocobalamin [Vitamin B12] 1,000 mcg PO DAILY@0800 #30 tab 05/23/17 Furosemide [Lasix] 40 mg PO DAILY #0 05/23/17 Prednisone 10 mg PO UD #30 tab 05/23/17 busPIRone [Buspar] 5 mg PO BID #60 tab 05/23/17 The following prescriptions were given: Benzonatate [Tessalon Perle] 100 mg PO 4X/DAY PRN PRN #20 cap PRN Reason: COUGH Cyanocobalamin [Vitamin B12] 1,000 mcg PO DAILY@0800 #30 tab Prednisone 10 mg PO UD #30 tab busPIRone [Buspar] 5 mg PO BID #60 tab Primary Care Physician: Jeffrey Lopez MD [Primary Care Provider] - Please follow up with your Primary Care Physician in: 1-2 weeks Please Follow Up With: Yuri Calero MD - Christina in 2 weeks to set up PFT's and PSG When: 2 weeks Proposed Discharge Date: 05/23/17
--- NOTE | 2017-05-23 16:30 | PCM.DC.SUM ---
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 Electronically Signed: Aravind Starkey MD at 20:10 EDT , Service support , Chest X-Ray 05/18/17 05:59 IMPRESSION: Persistent focal pulmonary opacity right lung base which could be atelectasis or infiltrate. However mass is not excluded and consider CT scan. Probable developing atelectasis or infiltrate in the left lung base. Electronically Signed: Aravind Starkey MD at 8:36 EDT , Service support , Videofluoroscopic Swallow 05/18/17 14:20 IMPRESSION: Transient penetration with ejection upon ingestion of thin liquids. The swallow study findings were discussed with the patient by the speech pathologist at the conclusion of the examination. Please see speech pathology report for more information and recommendations. Electronically Signed: Steve Ferreira MD at 15:22 EDT Tel [phone], Service support , Chest X-Ray 05/20/17 19:05 IMPRESSION: Mild right perihilar density, decreased since the previous study. Mild right basilar atelectasis. Electronically Signed: Mingo Estes DO at 23:54 EDT Tel [phone], Service support , Brain CT 05/21/17 05:58 IMPRESSION: Normal unenhanced CT scan of the brain. No acute findings in the brain Electronically Signed: Frandy Jauregui, at 7:32 EDT Tel , Service support , Cervical Spine CT 05/21/17 05:58 IMPRESSION: Multilevel degenerative changes, as described above. Electronically Signed: Steve Ferreira MD at 8:42 EDT Tel [phone], Service support , Hip/Pelvis X-Ray 05/21/17 06:08 IMPRESSION: Degenerative changes of both hip joints. No fracture or dislocation is seen. Electronically Signed: Steve Ferreira MD at 9:46 EDT Tel [phone], Service support , Lumbar Spine X-Ray 05/21/17 06:08 IMPRESSION: Degenerative changes of the spine, as detailed above. Electronically Signed: Steve Ferreira MD at 10:16 EDT Tel [phone], Service support , Thoracic Spine X-Ray 05/21/17 06:08 IMPRESSION: Multilevel disc space narrowing. No fracture is seen. Electronically Signed: Steve Ferreira MD at 9:46 EDT Tel [phone], Service support , Chest X-Ray 05/21/17 18:40 IMPRESSION: Basilar atelectasis and interstitial prominence. Elevated right hemidiaphragm. Electronically Signed: Mingo DO Franklyn at 19:18 EDT Tel [phone], Service support , Dr. Green - neurology Operations: None Procedures: 2-D Echocardiogram, - - Modified barium swallow Summary of Care Provided: Patient is a 77-year-old female with a history of ALYCE, morbid obesity, hypothyroidism, dyslipidemia, coronary artery disease, asthma, pulmonary hypertension, rheumatoid arthritis, IBS, GERD, diabetes mellitus type 2 and hypertension who presented to the emergency department at [facility] on 05/17/2017 with a complaint of cough and shortness of breath. Her was currently an inpatient at [facility] being treated for community-acquired pneumonia. Vital signs at admission were temperature 99.8, pulse rate 74, blood pressure 144/75, respiratory rate 22 and she was 90% saturated on a 4 L nasal cannula. White blood cell count was 10.2 with 75% neutrophils. Serum bicarb is elevated at 34 and the BUN was 14 with a creatinine of 1.26. Creatinine for the past year has ranged from 1.31-1.6. Influenza swab was negative. The Legionella and streptococcal antigens in the urine were negative. Chest x-ray showed elevation of the right hemidiaphragm which is chronic with either atelectasis or infiltrate in the right base. The second CXR read by a different radiologist described the findings as probable focal mass in the R lobe but, stated mass was not excluded. She had a third CXR and it failed to mention a mass. she was admitted to the hospital and started on azithromycin and Rocephin. A respiratory panel was positive for RSV B infection and antibiotics were discontinued. She was treated with high-dose intravenous steroids and [id number] aerosol treatments along with incentive spirometry and PEP. She gradually improved. She had a fall in the [place] on 05/21 when she failed to summon help. She had extensive XRAYS and a CT of the brain and there were no fractures. She was seen by PT and OT while in the hospital. Prior to DC she was able to ambulate 15 ft with a FWW and SBA. PT recommended 24 Hr supervision and since her grand daughter lives with her this is provided for her. She was discharged home on 05/23. This note was generated with [employer] dictation software. It may contain incorrect words, spelling, and punctuation that were not noted in checking the note before signing. Discharge Activity: - - Avoid exposure to any strong smells such as bleach, cleaning products, strong colognes or perfumes, paint fumes and smoke of any kind. Avoid sudden exposure to cold air because this can cause bronchospasm. You may want to cover your mouth when you go outside in the winter. Avoid exposure to anyone who is sick with a cough or sore throat. Call your doctor if you observe: Fever of 101 or Higher, Shortness of breath, Fainting spells, Chest pain Home Medications: Medications to take at Discharge Aspirin [Aspirin, Baby] 81 mg PO DAILY@0800 08/23/13 Clopidogrel Bisulfate [Plavix] 75 mg PO DAILY 08/23/13 Nitroglycerin [Nitrostat] 0.4 mg SL PRN PRN 08/23/13 Omeprazole [Prilosec] 40 mg PO DAILY 08/23/13 Pravastatin [Pravachol] 80 mg PO QHS 08/23/13 Budesonide Aerosol [Pulmicort Respules] 0.25 mg INHALATION Q12H 04/11/14 Oxygen, Home [Home Oxygen] 2 - 4 lpm NASAL DAILY #1 unit 04/26/14 Isosorbide Mononitrate [Imdur] 60 mg PO DAILY #30 tab 12/31/15 Metoprolol Tartrate [Lopressor (beta meredith)] 50 mg PO BID #60 tab 12/31/15 Albuterol Aerosols [Ventolin Aerosols] 2.5 mg INHALATION BID 04/02/17 Allopurinol 200 mg PO DAILY 04/02/17 Amlodipine [Norvasc] 5 mg PO DAILY 04/02/17 Ropinirole HCl [Requip] 0.25 mg PO QHS PRN 04/02/17 Insulin NPH Human [Humulin N Pen] 50 units SC BID pen 04/03/17 Insulin Regular, Human [Humulin R] 45 unit SQ BID 05/10/17 Calcitriol [Rocaltrol] 0.25 mcg PO DAILY 05/17/17 Benzonatate [Tessalon Perle] 100 mg PO 4X/DAY PRN PRN #20 cap 05/23/17 Cyanocobalamin [Vitamin B12] 1,000 mcg PO DAILY@0800 #30 tab 05/23/17 Furosemide [Lasix] 40 mg PO DAILY #0 05/23/17 Prednisone 10 mg PO UD #30 tab 05/23/17 busPIRone [Buspar] 5 mg PO BID #60 tab 05/23/17 Oxymetazoline 0.05% [Afrin (BKC)] 1 spray NASAL BID #1 bottle 05/25/17 Following Prescrptions Were Given to Patient: Benzonatate [Tessalon Perle] 100 mg PO 4X/DAY PRN PRN #20 cap PRN Reason: COUGH Cyanocobalamin [Vitamin B12] 1,000 mcg PO DAILY@0800 #30 tab Prednisone 10 mg PO UD #30 tab busPIRone [Buspar] 5 mg PO BID #60 tab Primary Care Physician: Jeffrey Lopez MD [Primary Care Provider] - Please follow up with your Primary Care Physician in: 1-2 weeks Please Follow Up With: Yuri Calero MD - Mei in 2 weeks to set up PFT's and PSG When: 2 weeks Patient Instructions: What Are Snoring and Sleep Apnea?, Visiting a Sleep Clinic, MyPlate Worksheet: 1,600 Calories Medical Necessity - Tobacco Use Smoking Status: Never smoker Meaningful Use Info Meaningful Use Diagnoses (Choose all that apply): None applicable Code Visit Inpatient E&M: 9[address] [facility]
--- NOTE | 2017-05-23 16:40 | DS.PCM_ITS ---
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 Electronically Signed: Aravind Starkey MD at 20:10 EDT , Service support , Chest X-Ray 05/18/17 05:59 IMPRESSION: Persistent focal pulmonary opacity right lung base which could be atelectasis or infiltrate. However mass is not excluded and consider CT scan. Probable developing atelectasis or infiltrate in the left lung base. Electronically Signed: Aravind Starkey MD at 8:36 EDT , Service support , Videofluoroscopic Swallow 05/18/17 14:20 IMPRESSION: Transient penetration with ejection upon ingestion of thin liquids. The swallow study findings were discussed with the patient by the speech pathologist at the conclusion of the examination. Please see speech pathology report for more information and recommendations. Electronically Signed: Steve Ferreira MD at 15:22 EDT Tel [phone], Service support , Chest X-Ray 05/20/17 19:05 IMPRESSION: Mild right perihilar density, decreased since the previous study. Mild right basilar atelectasis. Electronically Signed: Mingo Estes DO at 23:54 EDT Tel [phone], Service support , Brain CT 05/21/17 05:58 IMPRESSION: Normal unenhanced CT scan of the brain. No acute findings in the brain Electronically Signed: Frandy Jauregui, at 7:32 EDT Tel , Service support , Cervical Spine CT 05/21/17 05:58 IMPRESSION: Multilevel degenerative changes, as described above. Electronically Signed: Steve Ferreira MD at 8:42 EDT Tel [phone], Service support , Hip/Pelvis X-Ray 05/21/17 06:08 IMPRESSION: Degenerative changes of both hip joints. No fracture or dislocation is seen. Electronically Signed: Steve Ferreira MD at 9:46 EDT Tel [phone], Service support , Lumbar Spine X-Ray 05/21/17 06:08 IMPRESSION: Degenerative changes of the spine, as detailed above. Electronically Signed: Steve Ferreira MD at 10:16 EDT Tel [phone], Service support , Thoracic Spine X-Ray 05/21/17 06:08 IMPRESSION: Multilevel disc space narrowing. No fracture is seen. Electronically Signed: Steve Ferreira MD at 9:46 EDT Tel [phone], Service support , Chest X-Ray 05/21/17 18:40 IMPRESSION: Basilar atelectasis and interstitial prominence. Elevated right hemidiaphragm. Electronically Signed: Mingo DO Franklyn at 19:18 EDT Tel [phone], Service support , Dr. Green - neurology Operations: None Procedures: 2-D Echocardiogram, - - Modified barium swallow Summary of Care Provided: Patient is a 77-year-old female with a history of ALYCE, morbid obesity, hypothyroidism, dyslipidemia, coronary artery disease, asthma, pulmonary hypertension, rheumatoid arthritis, IBS, GERD, diabetes mellitus type 2 and hypertension who presented to the emergency department at [facility] on 05/17/2017 with a complaint of cough and shortness of breath. Her was currently an inpatient at [facility] being treated for community-acquired pneumonia. Vital signs at admission were temperature 99.8, pulse rate 74, blood pressure 144/75, respiratory rate 22 and she was 90% saturated on a 4 L nasal cannula. White blood cell count was 10.2 with 75% neutrophils. Serum bicarb is elevated at 34 and the BUN was 14 with a creatinine of 1.26. Creatinine for the past year has ranged from 1.31-1.6. Influenza swab was negative. The Legionella and streptococcal antigens in the urine were negative. Chest x-ray showed elevation of the right hemidiaphragm which is chronic with either atelectasis or infiltrate in the right base. The second CXR read by a different radiologist described the findings as probable focal mass in the R lobe but, stated mass was not excluded. She had a third CXR and it failed to mention a mass. she was admitted to the hospital and started on azithromycin and Rocephin. A respiratory panel was positive for RSV B infection and antibiotics were discontinued. She was treated with high-dose intravenous steroids and [id number] aerosol treatments along with incentive spirometry and PEP. She gradually improved. She had a fall in the BR on 05/21 when she failed to summon help. She had extensive XRAYS and a CT of the brain and there were no fractures. She was seen by PT and OT while in the hospital. Prior to DC she was able to ambulate 15 ft with a FWW and SBA. PT recommended 24 Hr supervision and since her grand daughter lives with her this is provided for her. She was discharged home on 05/23. This note was generated with [employer] dictation software. It may contain incorrect words, spelling, and punctuation that were not noted in checking the note before signing. Discharge Activity: - - Avoid exposure to any strong smells such as bleach, cleaning products, strong colognes or perfumes, paint fumes and smoke of any kind. Avoid sudden exposure to cold air because this can cause bronchospasm. You may want to cover your mouth when you go outside in the winter. Avoid exposure to anyone who is sick with a cough or sore throat. Call your doctor if you observe: Fever of 101 or Higher, Shortness of breath, Fainting spells, Chest pain Home Medications: Medications to take at Discharge Aspirin [Aspirin, Baby] 81 mg PO DAILY@0800 08/23/13 Clopidogrel Bisulfate [Plavix] 75 mg PO DAILY 08/23/13 Nitroglycerin [Nitrostat] 0.4 mg SL PRN PRN 08/23/13 Omeprazole [Prilosec] 40 mg PO DAILY 08/23/13 Pravastatin [Pravachol] 80 mg PO QHS 08/23/13 Budesonide Aerosol [Pulmicort Respules] 0.25 mg INHALATION Q12H 04/11/14 Oxygen, Home [Home Oxygen] 2 - 4 lpm NASAL DAILY #1 unit 04/26/14 Isosorbide Mononitrate [Imdur] 60 mg PO DAILY #30 tab 12/31/15 Metoprolol Tartrate [Lopressor (beta meredith)] 50 mg PO BID #60 tab 12/31/15 Albuterol Aerosols [Ventolin Aerosols] 2.5 mg INHALATION BID 04/02/17 Allopurinol 200 mg PO DAILY 04/02/17 Amlodipine [Norvasc] 5 mg PO DAILY 04/02/17 Ropinirole HCl [Requip] 0.25 mg PO QHS PRN 04/02/17 Insulin NPH Human [Humulin N Pen] 50 units SC BID pen 04/03/17 Insulin Regular, Human [Humulin R] 45 unit SQ BID 05/10/17 Calcitriol [Rocaltrol] 0.25 mcg PO DAILY 05/17/17 Benzonatate [Tessalon Perle] 100 mg PO 4X/DAY PRN PRN #20 cap 05/23/17 Cyanocobalamin [Vitamin B12] 1,000 mcg PO DAILY@0800 #30 tab 05/23/17 Furosemide [Lasix] 40 mg PO DAILY #0 05/23/17 Prednisone 10 mg PO UD #30 tab 05/23/17 busPIRone [Buspar] 5 mg PO BID #60 tab 05/23/17 Oxymetazoline 0.05% [Afrin (BKC)] 1 spray NASAL BID #1 bottle 05/25/17 Following Prescrptions Were Given to Patient: Benzonatate [Tessalon Perle] 100 mg PO 4X/DAY PRN PRN #20 cap PRN Reason: COUGH Cyanocobalamin [Vitamin B12] 1,000 mcg PO DAILY@0800 #30 tab Prednisone 10 mg PO UD #30 tab busPIRone [Buspar] 5 mg PO BID #60 tab Primary Care Physician: Jeffrey Lopez MD [Primary Care Provider] - Please follow up with your Primary Care Physician in: 1-2 weeks Please Follow Up With: Yrui Calero MD - Mei in 2 weeks to set up PFT's and PSG When: 2 weeks Patient Instructions: What Are Snoring and Sleep Apnea?, Visiting a Sleep Clinic, My[employer] Worksheet: 1,600 Calories Medical Necessity - Tobacco Use Smoking Status: Never smoker Meaningful Use Info Meaningful Use Diagnoses (Choose all that apply): None applicable Code Visit Inpatient E&M: 40602 [facility]
[2017-05-23 17:41] LABS: Bedside Glucose 274 mg/dL (70-110)
[2017-05-24 06:22] LABS: Copper, Serum or Plasma 125 ug/dL (72-166)
== END 2017-05-23 18:09 | disposition home or self-care (01) | DRG 194 ==
LOC: ED 20:42 → MS3 21:26
PROVIDERS: Psychiatry & Neurology Neurology; Admitting Provider Internal Medicine; Emergency Provider Emergency Medicine; Family Provider Family Medicine; PCP Family Medicine; Visit Provider Internal Medicine
DX: J12.1 Respiratory syncytial virus pneumonia (principal); J96.11 Chronic respiratory failure with hypoxia; E11.22 Type 2 diabetes mellitus with diabetic chronic kidney disease; E11.65 Type 2 diabetes mellitus with hyperglycemia; R13.12 Dysphagia, oropharyngeal phase; I27.23 Pulmonary hypertension due to lung diseases and hypoxia; Z99.81 Dependence on supplemental oxygen; E78.5 Hyperlipidemia, unspecified; E03.9 Hypothyroidism, unspecified; G47.33 Obstructive sleep apnea (adult) (pediatric); I25.10 Atherosclerotic heart disease of native coronary artery without angina pectoris; G25.0 Essential tremor; Z95.1 Presence of aortocoronary bypass graft; K58.9 Irritable bowel syndrome, unspecified; K21.9 Gastro-esophageal reflux disease without esophagitis; M06.9 Rheumatoid arthritis, unspecified; J45.40 Moderate persistent asthma, uncomplicated; Z79.4 Long term (current) use of insulin; Z79.899 Other long term (current) drug therapy; M47.9 Spondylosis, unspecified; N18.3 Chronic kidney disease, stage 3 (moderate); I12.9 Hypertensive chronic kidney disease with stage 1 through stage 4 chronic kidney disease, or unspecified chronic kidney disease; G25.81 Restless legs syndrome
CPT/HCPCS: 36415; 36600; 70450; 71045; 71046; 72072; 72100; 72125; 73521; 74230; 80048; 80076; 81001; 82390; 82525; 82607; 82803; 82947; 82962; 83036; 83735; 84443; 84484; 85025; 85027; 87040; 87070; 87086; 87205; 87449; 87633; 87804; 92526; 92611; 93005; 94003; 94640; 94660; 94667; 94668; 97162; 97165; 99283; J7030; J7050; A4216; J1940

== ENCOUNTER 2017-05-25 12:18 | Emergency (ER) | payer MEDICARE, OTHER, SELFPAY ==
[2017-05-25 12:19] VITALS: BP 132/86; PULSE 69; RESP 38; TEMP 37.4; O2SAT 78; BMI 36.6
--- NOTE | 2017-05-25 13:00 | EKG12_ITS ---
Test Reason : Blood Pressure : / mmHG Vent. Rate : 062 BPM Atrial Rate : 062 BPM P-R Int : 148 ms QRS Dur : 118 ms QT Int : 444 ms P-R-T Axes : 045 -16 125 degrees QTc Int : 450 ms Sinus rhythm with Premature atrial complexes Anterior infarct , age undetermined Abnormal ECG Confirmed by SY DANIELLE ([id number]), editor city KARSON FARRELL ([id number]) on 05/28/2017 2:36:58 PM Referred By: CAROLINA Confirmed By:SY DANIELLE
--- NOTE | 2017-05-25 13:00 | RAD_ITS ---
STUDY: X-RAY CHEST REASON FOR EXAM: Female, 77 years old. Shortness of breath. TECHNIQUE: AP and lateral views of the chest. COMPARISON: Comparison is made with prior study dated May 21, 2017. FINDINGS: EKG electrodes are seen. Elevation of the right hemidiaphragm. Increased markings in the right infrahilar region suggestive of basilar atelectasis. The left lung is clear. There is no demonstrated pleural abnormality. Sternal cerclage wires and vascular clips are present from a prior sternotomy and coronary artery bypass graft procedure (CABG). Normal mediastinum and billy. Normal visualized pulmonary arteries. Normal visualized aortic arch and descending thoracic aorta. There are diffuse degenerative changes of the visualized thoracic spine. Normal visualized ribs, clavicles, and shoulders. There is no demonstrated abnormality of the visualized soft tissue structures of the upper abdomen. RAD/Chest PA and Lateral IMPRESSION: Increased markings at the right lung base suggestive of right basilar atelectasis. Electronically Signed: Steve Ferreira MD at 14:19 EDT Tel [phone], Service support ,
[2017-05-25 13:24] VITALS: PULSE 68; RESP 15; O2SAT 96
[2017-05-25 13:24] LABS: Hematocrit 39.6 % (37-47); Hemoglobin 12.5 g/dl (12.0-15.0); Mean Corp Hgb Conc 31.6 g/gl (32-36); Mean Corpuscular Hgb 28.2 pg (27.0-32.0); Mean Corpuscular Volume 89.2 fL (81-99); Mean Platelet Vol. 10.9 fl (6.2-12.0); Platelet Count 274 K/mm3 (150-450); RBC Distribution Width CV 13.9 % (11.6-14.6); RBC Distribution Width SD 45.2 fl (35.1-43.9); Red Blood Count 4.44 M/mm3 (4.2-5.4); White Blood Count 16.3 K/mm3 (4.4-11.0)
[2017-05-25 13:26] LABS: Differential Indicated MANUAL DIFF; POSITIVE COUNT YES; POSITIVE DIFFERENTIAL NO; POSITIVE MORPHOLOGY YES
[2017-05-25 13:28] LABS: Anion Gap 4 (5-15); BUN 41 mg/dL (7-18); BUN/Creat Ratio 28.3 RATIO (10-20); Calcium,Total 8.5 mg/dL (8.5-10.1); Chloride 100 mmol/L (98-107); Creatinine, Serum 1.45 mg/dL (0.55-1.02); EST Glomerular Filtration Rate 37 mL/min (>60); Est Glom Filt Rate - Afr Amer 45 mL/min (>60); Glucose 204 mg/dL (74-106); Lactic Acid 1.8 mmol/L (0.4-2.0); Sodium Level 142 mmol/L (136-145)
[2017-05-25] MEDS: MethylPREDNISolone 125 MG/2 ML Vial IV (13:32)
[2017-05-25] MEDS: 0.9% Normal Saline 1,000 ML 150 ML IV (13:32)
[2017-05-25 13:33] VITALS: O2SAT 93
[2017-05-25 13:48] LABS: Lymphocyte 13 % (19-41); Monocyte 4 % (0-10); Neutrophil-Segmented 83 % (47-70); Total Cells Counted 100 (MANUAL DIFF)
[2017-05-25 13:49] LABS: Platelet Estimate ADEQUATE (ADEQ)
[2017-05-25 13:50] LABS: Polychromasia RARE; Schistocytes RARE
[2017-05-25 13:51] LABS: Absolute Neutrophil Count 13.5 X10^3/uL (2.0-7.7)
[2017-05-25 13:52] LABS: Absolute Lymphocyte Count 2.12 X10^3/ul (0.83-4.51)
[2017-05-25] MEDS: Ipratropium/Albuterol Sulfate 3 ML AMPUL.NEB INHALATION (14:07)
[2017-05-25 14:45] VITALS: PULSE 67; RESP 18; O2SAT 94
--- NOTE | 2017-05-25 15:11 | ED.VISSUMM ---
- ER Visit Summary Date of Service: 05/25/17 Chief Complaint: Cough and shortness of breath History of Present Illness: The patient is a [address] Lopez, Dr. Estrada, and Dr. Magana. She had been admitted to the hospital and discharged May 23 with a diagnosis of RSV. States that she has been short of breath for the past 2 weeks. Today she states that even with her oxygen on when she walks around at home her pulse ox in the 70s. She states that it increases back up into the 90s when she is at rest. She denies any fever or chills. Reports that when she is very short of breath walking around she gets chest pain, but no pain otherwise. Physical Examination: Vitals: 99.3, 132/86, 68, 38, 70% on 4 L nasal cannula while walking at 96% on 4 L nasal cannula at rest. General: Well-nourished and well-developed. Head: Normocephalic atraumatic. Neck: Supple, no lymphadenopathy. No JVD. Nontender. Cardiovascular: Regular rate and rhythm. No murmurs. Respiratory: No respiratory distress. Moderate wheezing bilaterally with decreased air movement. Abdominal: Soft, nontender, nondistended, normal bowel sounds. No guarding, rebound, or peritoneal signs. Back: Nontender. Extremities: Nontender, no edema. Skin: Normal color, no rash. Neurologic: Alert and oriented ?3. Cranial nerves II through XII are intact. Normal strength and sensation. Psych: Normal affect. Test Results: EKG is sinus at 62 with PACs. Troponin 0 0.03. Chem-7 more for BUN 41, creatinine 1.45, CO2 of 38, glucose 204. CBC is marked for white count of 16.3 (the patient is on steroids). Lactic acid is 1.8. Chest x-ray shows increased markings of the right lung base suggestive right basilar atelectasis. Emergency Department Course and Treatment: Patient with albuterol and Atrovent aerosols. She is given Solu-Medrol IV. She is resting comfortably. She was seen by case management who has offered to attempt to get her into a senior living facility as she is recently had a 3 day stay. She does not want to do that or stay in the hospital. She would like to go home. Home health will be arranged for her. Treatment Plan: Instructed to continue to use her oxygen and nebulizer. Follow-up her primary care physician in 1-2 days if not improving. Return to the emergency department for any worsening symptoms. Disposition: To home in improved and stable condition. Impression: 1. RSV. 2. Chronic respiratory failure. This note was generated with [employer] dictation software. It may contain incorrect words, spelling, and punctuation that were not noted in review of the chart prior to signing ED Disposition - Plan for ED Patient: Disposition: Home or Assisted Living Chief Complaint: Shortness of Breath Instructions: Bronchiolitis Prescriptions: Oxymetazoline 0.05% [Afrin (BKC)] 1 spray NASAL BID #1 bottle Referrals: Jeffrey Lopez MD [Primary Care Provider] - 3-5 Days if not improving
[2017-05-25 15:25] VITALS: BP 137/72; PULSE 83; RESP 17; O2SAT 92
[2017-05-25 15:49] VITALS: BP 140/61; PULSE 74; RESP 21; O2SAT 93
--- NOTE | 2017-05-25 15:50 | NURSING ---
nurse prior did not enter med list.
--- NOTE | 2017-05-25 15:53 | CASEMGMT ---
Social Work: Referral made to SW for possible placement verses home with assistance. Spoke with Dr. Kevin who states that patient was discharged from [facility] on Thursday05/23/17 after a [address] Kevin states that patient will more than likely not be admitted. This SW to discuss fdc placement as patient would have met the Medicare qualifying stay during admission last week. Met with patient, patient's and patient's granddaughter. Patient states that she was just discharged from [facility] on Thursday and is having a difficult time breathing. Patient lives with and granddaughter, Malka, who works awake overnight monitor. Patient states that she is able to walk short distances but becomes SOB with more activity or longer distances. Patient uses a walker to ambulate and is on oxygen continuos at this time. Patient has a nebulizer in the home and is independent with aerosol administrations. Patient has a tub/shower set up and uses a shower chair to bath. Patient states that she is having difficulty bathing herself due to SOB from activity. Patient is currently eating microwave meals that her helps prepare. This SW discussed options including short term senior care home placement verses home health RN and PLANE TENDER. Patient states I do not want to go to a fdc. Patient agreeable to home health RN and a home health aid a few days a week. This SW also discussed MOW with patient to assist with at least on meal a day. Patient agreeable to MOW referral for hot meal at noon. Spoke with Dr. Kevin who is aware that patient choosing to go home with home health RN/PLANE TENDER. Dr. Kevin agreeable to plan. Torrie Bernal RN CM to make HHS referral. This SW to make referral for MOW. Patient and family aware that MOW will call patient tomorrow to set up meal delivery. PLAN: Patient to return home with family assist, HHS and MOW. LAVERNE Yan
[2017-05-26 13:58] LABS: Pathologist Review Reviewed
== END 2017-05-25 15:50 | disposition home or self-care (01) ==
LOC: ED 13:37
PROVIDERS: Emergency Provider Emergency Medicine; Family Provider Family Medicine; PCP Family Medicine
DX: J12.1 Respiratory syncytial virus pneumonia (principal); J96.10 Chronic respiratory failure, unspecified whether with hypoxia or hypercapnia; Z99.81 Dependence on supplemental oxygen; I25.10 Atherosclerotic heart disease of native coronary artery without angina pectoris; I10 Essential (primary) hypertension; I27.20 Pulmonary hypertension, unspecified; J45.909 Unspecified asthma, uncomplicated; E78.00 Pure hypercholesterolemia, unspecified; K21.9 Gastro-esophageal reflux disease without esophagitis; G25.81 Restless legs syndrome; E03.9 Hypothyroidism, unspecified; E11.40 Type 2 diabetes mellitus with diabetic neuropathy, unspecified; Z79.4 Long term (current) use of insulin; Z95.1 Presence of aortocoronary bypass graft; Z95.5 Presence of coronary angioplasty implant and graft; Z79.82 Long term (current) use of aspirin; Z79.01 Long term (current) use of anticoagulants; Z79.899 Other long term (current) drug therapy
CPT/HCPCS: 71046; 80048; 83605; 84484; 85025; 87040; 93005; 96361; 96374; 99285; J7030; A4216

== ENCOUNTER → 2017-07-06 12:51 | Outpatient (CLI) | payer MEDICARE, OTHER, SELFPAY ==
[2017-07-06 14:11] LABS: Protein, Urine (Random) 39.6 mg/dL (<11.9); Protein:Creat Ratio 370 mg/g CRE (0-200)
[2017-07-06 14:16] LABS: Hematocrit 37.4 % (37-47); Hemoglobin 11.8 g/dl (12.0-15.0); Mean Corp Hgb Conc 31.6 g/gl (32-36); Mean Corpuscular Hgb 28.4 pg (27.0-32.0); Mean Corpuscular Volume 90.1 fL (81-99); Mean Platelet Vol. 10.4 fl (6.2-12.0); Platelet Count 227 K/mm3 (150-450); RBC Distribution Width CV 13.6 % (11.6-14.6); Red Blood Count 4.15 M/mm3 (4.2-5.4); White Blood Count 9.4 K/mm3 (4.4-11.0)
[2017-07-06 14:20] LABS: Scan Indicated on CBC? Y/N NO
[2017-07-06 14:28] LABS: Albumin, Serum 3.2 g/dL (3.2-5.0); BUN 21 mg/dL (7-18); BUN/Creat Ratio 19.3 RATIO (10-20); Calcium,Total 9.2 mg/dL (8.5-10.1); Chloride 103 mmol/L (98-107); Creatinine, Serum 1.09 mg/dL (0.55-1.02); EST Glomerular Filtration Rate 52 mL/min (>60); Est Glom Filt Rate - Afr Amer 63 mL/min (>60); Ferritin 125 ng/mL (8-252); Glucose 130 mg/dL (74-106); Iron 46 ug/dL (50-170); Iron Binding Capacity,Total 268 ug/dL (250-450); PERCENT IRON SATURATION 17.2 % (15.0-55.0); Phosphorus 2.9 mg/dL (2.5-4.9); Sodium Level 141 mmol/L (136-145)
[2017-07-06 14:29] LABS: PTHIN 108.6 pg/mL (18.4-80.1)
== END ==
PROVIDERS: Family Provider Family Medicine; PCP Family Medicine; Visit Provider Internal Medicine Nephrology
DX: I12.9 Hypertensive chronic kidney disease with stage 1 through stage 4 chronic kidney disease, or unspecified chronic kidney disease (principal); N18.3 Chronic kidney disease, stage 3 (moderate); D63.1 Anemia in chronic kidney disease
CPT/HCPCS: 36415; 80069; 82570; 82728; 83540; 83550; 83970; 84156; 85027

== ENCOUNTER → 2017-08-20 07:25 | Outpatient (CLI) | payer MEDICARE, OTHER, SELFPAY ==
--- NOTE | 2017-08-20 07:28 | CT_ITS ---
STUDY: CT CHEST WITHOUT CONTRAST REASON FOR EXAM: Female, 77 years old. Worsening shortness of breath RADIATION DOSAGE (If Supplied By Facility): CTDIvol = ( 20.15 ) mGy, DLP = ( 714.93 ) mGycm TECHNIQUE: Transaxial imaging was performed without the administration of intravenous contrast material. Multiplanar coronal and sagittal images were reformatted. Individualized dose optimization techniques were used for this CT. COMPARISON: 2013 FINDINGS: The lung windows show chronic interstitial changes in both lung rolle. There is chronic elevation of the right hemidiaphragm with chronic platelike atelectasis in the right lung base. There is no organized infiltrate, or suspicious noncalcified mass or nodule. There is a calcified granuloma in the left lung base. There is a low-density left thyroid nodule. There is been a previous CABG. There are scattered subcentimeter axillary and mediastinal lymph nodes. Normal unenhanced pulmonary arteries. Peripheral calcifications noted in the thoracic aorta without aneurysm. There are multi-level degenerative changes of the thoracic spine. Cuts through the upper abdomen do not show a suspicious solid organ abnormality, there has been a previous cholecystectomy and there are diffuse splenic calcifications CT/Chest without Contrast IMPRESSION: Stable elevation of the right hemidiaphragm. Chronic interstitial changes noted in both lung rolle without evidence of a superimposed acute pulmonary process. Previous CABG Atherosclerosis in the thoracic aorta Left thyroid nodule Degenerative bony changes Electronically Signed: Miller Mckee MD at 13:38 EDT , Service support ,
--- NOTE | 2017-08-20 09:30 | RAD_ITS ---
CLINICAL HISTORY: Female, 77 years old. Dyspnea PROCEDURE: SNIFF TEST RADIATION DOSAGE (If Supplied By Facility): CTDIvol = ( ) mGy, DLP = ( ) mGycm FLUOROSCOPY TIME (if supplied): (0:39) minutes/seconds. 45 images. TECHNIQUE: In the presence of speech pathologist utilizing thin and thick liquid barium as well as pudding mixed with barium and cookies coated with barium. Multiple swallows were performed under fluoroscopic monitoring. COMPARISON: None. FINDINGS: Asymmetric upward and downward motion of the right and left hemidiaphragms noted during inspiration and expiration and during cough. There is paradoxical movement to suggest phrenic nerve paralysis. 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 Electronically Signed: Meng Altamirano MD at 9:07 EDT Tel , Service support ,
== END ==
PROVIDERS: Family Provider Family Medicine; PCP Family Medicine; Visit Provider Internal Medicine Pulmonary Disease
DX: R06.00 Dyspnea, unspecified (principal)
CPT/HCPCS: 71250; 76000

== ENCOUNTER → 2017-11-04 13:14 | Outpatient (CLI) | payer MEDICARE, OTHER, SELFPAY ==
[2017-11-04 14:28] LABS: Hematocrit 41.1 % (37-47); Hemoglobin 12.8 g/dl (12.0-15.0); Mean Corp Hgb Conc 31.1 g/gl (32-36); Mean Corpuscular Hgb 27.8 pg (27.0-32.0); Mean Corpuscular Volume 89.2 fL (81-99); Mean Platelet Vol. 11.1 fl (6.2-12.0); Platelet Count 198 K/mm3 (150-450); RBC Distribution Width CV 13.8 % (11.6-14.6); RBC Distribution Width SD 44.6 fl (35.1-43.9); Red Blood Count 4.61 M/mm3 (4.2-5.4); White Blood Count 7.3 K/mm3 (4.4-11.0)
[2017-11-04 14:29] LABS: Scan Indicated on CBC? Y/N NO
[2017-11-04 14:39] LABS: Hemoglobin A1c 8.2 % (4.2-6.3)
[2017-11-04 14:44] LABS: ALB/GLOB Ratio 0.8 RATIO (0.9-2.4); AST(SGOT) 28 U/L (15-37); Alanine Aminotransfer ALT/SGPT 24 U/L (13-56); Albumin, Serum 3.2 g/dL (3.2-5.0); Alkaline Phosphatase 99 U/L (45-117); Anion Gap 6 (5-15); BUN 20 mg/dL (7-18); BUN/Creat Ratio 15.4 RATIO (10-20); Calcium,Total 9.1 mg/dL (8.5-10.1); Chloride 103 mmol/L (98-107); Cholesterol 108 mg/dL (200); EST Glomerular Filtration Rate 42 mL/min (>60); Est Glom Filt Rate - Afr Amer 51 mL/min (>60); Glucose 86 mg/dL (74-106); High Density Lipoprotein 47 mg/dL; Potassium 4.1 mmol/L (3.5-5.1); Protein, Total 7.2 g/dL (6.4-8.2); Sodium Level 141 mmol/L (136-145); Thyroid Stim Hormone (TSH) 0.76 uIU/mL (0.358-3.74); Triglycerides 83 mg/dL; Very Low Density Lipoprotein 17 mg/dL (5-40)
== END ==
PROVIDERS: Family Provider Family Medicine; PCP Family Medicine; Visit Provider Internal Medicine
DX: E11.9 Type 2 diabetes mellitus without complications (principal)
CPT/HCPCS: 36415; 80053; 80061; 83036; 84443; 84550; 85027

== ENCOUNTER → 2018-01-11 12:24 | Outpatient (CLI) | payer MEDICARE, OTHER, SELFPAY ==
[2018-01-11 14:08] LABS: Protein, Urine (Random) 10.1 mg/dL (<11.9); Protein:Creat Ratio 336 mg/g CRE (0-200)
[2018-01-11 14:09] LABS: Hematocrit 41.1 % (37-47); Hemoglobin 12.7 g/dl (12.0-15.0); Mean Corp Hgb Conc 30.9 g/gl (32-36); Mean Corpuscular Hgb 27.9 pg (27.0-32.0); Mean Corpuscular Volume 90.3 fL (81-99); Mean Platelet Vol. 10.8 fl (6.2-12.0); Platelet Count 207 K/mm3 (150-450); RBC Distribution Width CV 13.7 % (11.6-14.6); RBC Distribution Width SD 44.3 fl (35.1-43.9); Red Blood Count 4.55 M/mm3 (4.2-5.4); Scan Indicated on CBC? Y/N NO; White Blood Count 8.2 K/mm3 (4.4-11.0)
[2018-01-11 14:24] LABS: Albumin, Serum 3.2 g/dL (3.2-5.0); BUN 18 mg/dL (7-18); Calcium,Total 8.9 mg/dL (8.5-10.1); Chloride 99 mmol/L (98-107); Creatinine, Serum 1.38 mg/dL (0.55-1.02); EST Glomerular Filtration Rate 39 mL/min (>60); Est Glom Filt Rate - Afr Amer 48 mL/min (>60); Ferritin 81 ng/mL (8-252); Glucose 252 mg/dL (74-106); Iron 58 ug/dL (50-170); Iron Binding Capacity,Total 272 ug/dL (250-450); PERCENT IRON SATURATION 21.3 % (15.0-55.0); Phosphorus 3.2 mg/dL (2.5-4.9); Potassium 4.6 mmol/L (3.5-5.1); Sodium Level 136 mmol/L (136-145); Uric Acid 5.1 mg/dL (2.6-6.0)
== END ==
PROVIDERS: Family Provider Family Medicine; PCP Family Medicine; Referring Provider Internal Medicine Nephrology; Visit Provider Internal Medicine Nephrology
DX: N18.3 Chronic kidney disease, stage 3 (moderate) (principal); D63.1 Anemia in chronic kidney disease; R60.9 Edema, unspecified
CPT/HCPCS: 36415; 80069; 82570; 82728; 83540; 83550; 83970; 84156; 84550; 85027

== ENCOUNTER 2018-03-10 16:11 | Inpatient (IN) | payer MEDICARE, OTHER, SELFPAY ==
[2018-02-02 14:21] VITALS: BMI 36.6
[2018-03-10] VITALS (19 sets, daily range): BP systolic 99–201; BP diastolic 51–107; PULSE 76–128; RESP 18–35; TEMP 36.6–37.4; O2SAT 93–99; BMI 39.4; BMI 36.1
--- NOTE | 2018-03-10 16:41 | EKG12_ITS ---
Test Reason : CP Blood Pressure : / mmHG Vent. Rate : 133 BPM Atrial Rate : 125 BPM P-R Int : 000 ms QRS Dur : 124 ms QT Int : 322 ms P-R-T Axes : 000 000 010 degrees QTc Int : 479 ms Sinus tachycardia with PSVCs Nonspecific intra ventricular conduction delay Abnormal ECG Confirmed by RENETTA CURRY, ROSSY ([id number]), science editor KARSON FARRELL ([id number]) on 03/12/2018 2:32:10 PM Referred By: UJLIAN Confirmed By:ROSSY JACKSON MD
--- NOTE | 2018-03-10 16:45 | EKG12_ITS ---
Test Reason : CP Blood Pressure : / mmHG Vent. Rate : 111 BPM Atrial Rate : 111 BPM P-R Int : 256 ms QRS Dur : 124 ms QT Int : 354 ms P-R-T Axes : 046 -32 082 degrees QTc Int : 481 ms Sinus tachycardia with 1st degree A-V block with occasional Premature ventricular complexes Left axis deviation Nonspecific intra ventricular conduction delay Abnormal ECG Confirmed by RENETTA CURRY, ROSSY ([id number]), general expeditor KARSON FARRELL ([id number]) on 03/12/2018 2:33:07 PM Referred By: Confirmed By:ROSSY JACKSON MD
--- NOTE | 2018-03-10 16:45 | ED.VISSUMM ---
- ER Visit Summary Date of Service: 03/10/18 Chief Complaint: Chest pain, shortness of breath History of Present Illness: The patient is a 77 F presenting with chest pain, shortness of breath. Symptoms started approximately 1 hour ago. She had pain for approximately 45 minutes. She states the pain is now resolved. She continues to feel short of breath. She states she felt short of breath for the past several days. She denies fever. She had associated diaphoresis with her chest pain. She states it radiated to her neck. She has a history of hypertension, diabetes, hypercholesterolemia. She is not a smoker. She has history of 2 previous stents and CABG. Physical Examination: Vitals are stable. Patient is afebrile. Alert no acute distress. HEENT exam is unremarkable. Neck is supple. Lungs are rhonchorous bilaterally. Heart is regular and tachycardic Abdomen is soft nontender nondistended. Extremities are unremarkable. Skin is warm and dry. No focal neurologic deficit. Remainder of exam is unremarkable. Emergency Department Course and Treatment: Patient was given aspirin on arrival. EKG is sinus tachycardia rate of [address] depression. Repeat EKG shows improvement. She is chest pain-free on arrival. She continues to be short of breath. She was given albuterol, Atrovent aerosols. She was started on noninvasive ventilation with improvement. Chest x-ray shows increased left hilar and parahilar markings suspicious for bronchitis or early pneumonia. CBC shows white count 15.7. Chemistries show glucose 556, BUN 32, creatinine 1.74. Troponin 0.029. Patient is chest pain-free on reevaluation. She was given Rocephin, Zithromax IV. She was given insulin subcutaneously. On exam patient appears fluid overloaded. She was given Lasix IV. Discussed with the hospitalist for admission. Disposition: Admission Impression: Respiratory failure secondary to CHF, pneumonia; chest pain This note was generated with [employer] dictation software. It may contain incorrect words, spelling, and punctuation that were not noted in review of the chart prior to signing ED Disposition - Plan for ED Patient: Chief Complaint: Chest Pain Referrals: Jeffrey Lopez MD [Primary Care Provider] -
--- NOTE | 2018-03-10 16:50 | RAD_ITS ---
STUDY: X-RAY CHEST REASON FOR EXAM: Female, 77 years old. SOB. TECHNIQUE: Portable chest. COMPARISON: 05/25/2017. FINDINGS: Sternotomy wires are present. There is no pleural effusion. Mild increased markings are noted in the left hilar and perihilar region, suspicious for bronchitis or early pneumonic infiltrate. Normal size heart. Normal mediastinum and billy. Normal visualized pulmonary arteries. There is atherosclerotic calcification of the aortic arch. Soft tissues and bony structures are unremarkable. RAD/Chest 1 View (Portable) IMPRESSION: Increased left hilar and parahilar markings suspicious for bronchitis or early pneumonia. Electronically Signed: Jina Michael MD at 17:22 EST Tel , Service support ,
[2018-03-10] MEDS: Albuterol 2.5 MG/3 ML VIAL.NEB. INHALATION ×3 (16:55→19:18)
[2018-03-10] MEDS: Ipratropium/Albuterol Sulfate 3 ML AMPUL.NEB INHALATION (16:55)
[2018-03-10] MEDS: Ceftriaxone 1 GM/50 ML BAG IV (16:58)
[2018-03-10 17:12] LABS: Absolute Lymphocyte Count 1.28 X10^3/ul (0.83-4.51); Absolute Neutrophil Count 14.1 X10^3/uL (2.0-7.7); Basophil# 0.01 X10^3/uL; Basophil% 0.1 % (0-1); Hematocrit 43.7 % (37-47); Hemoglobin 13.8 g/dl (12.0-15.0); Lymphocyte # 1.28 X10^3/ul (4.0); Lymphocyte % 8.1 % (19-41); Mean Corp Hgb Conc 31.6 g/gl (32-36); Mean Corpuscular Hgb 28.2 pg (27.0-32.0); Mean Corpuscular Volume 89.4 fL (81-99); Mean Platelet Vol. 10.7 fl (6.2-12.0); Monocyte# 0.34 X10^3/uL; Monocyte% 2.2 % (0-10); Neutrophil # 14.05 X10^3/uL (2.7-7.7); Neutrophil % 89.3 % (47-70); Platelet Count 235 K/mm3 (150-450); RBC Distribution Width CV 13.3 % (11.6-14.6); RBC Distribution Width SD 43.4 fl (35.1-43.9); Red Blood Count 4.89 M/mm3 (4.2-5.4); White Blood Count 15.7 K/mm3 (4.4-11.0)
[2018-03-10 17:19] LABS: Anion Gap 11 (5-15); BUN 32 mg/dL (7-18); BUN/Creat Ratio 18.4 RATIO (10-20); Calcium,Total 9.3 mg/dL (8.5-10.1); Chloride 95 mmol/L (98-107); Creatinine, Serum 1.74 mg/dL (0.55-1.02); EST Glomerular Filtration Rate 30 mL/min (>60); Est Glom Filt Rate - Afr Amer 37 mL/min (>60); Estimated Creatinine Clearance 22.75 ml/min; Glucose 556 mg/dL (74-106); Potassium 4.1 mmol/L (3.5-5.1); Sodium Level 135 mmol/L (136-145)
[2018-03-10 17:23] LABS: POSITIVE COUNT NO; POSITIVE DIFFERENTIAL NO; POSITIVE MORPHOLOGY NO
--- NOTE | 2018-03-10 17:38 | NURSING ---
DR MATT JORDAN
[2018-03-10] MEDS: LORazepam 0.5 MG Tablet PO (18:14)
[2018-03-10] MEDS: Insulin Lispro 100 UNIT/ML INSULN.PEN 15 UNIT SC ×2 (18:14→22:05)
--- NOTE | 2018-03-10 18:23 | HP.PCM_ITS ---
Problem List (1) CHF (congestive heart failure) Status: Acute (2) Community acquired pneumonia Status: Acute (3) ST segment changes on electrocardiogram Status: Acute (4) Hypertensive emergency Status: Acute (5) Diabetes mellitus Status: Acute Qualifiers: Diabetes mellitus type: type 2 (6) CKD (chronic kidney disease), stage III Status: Chronic (7) Essential tremor Status: Suspected (8) ALYCE (obstructive sleep apnea) Status: Suspected (9) Obesity Status: Chronic Qualifiers: (10) Hypothyroidism Status: Chronic (11) Pulmonary hypertension Status: Chronic (12) Acute respiratory failure with hypoxia Status: Ruled-out (13) Moderate persistent asthma Status: Chronic Qualifiers: Comment: with secondary pulm HTN (14) Rheumatoid arthritis Status: Chronic (15) IBS (irritable bowel syndrome) Status: Chronic (16) GERD (gastroesophageal reflux disease) Status: Chronic (17) Type II diabetes mellitus Status: Chronic (18) Benign essential hypertension Status: Chronic History of Present Illness Date of Admission: 03/10/18 Chief Complaint: SOB The patient is a 77 year old F with pmhx of pulmonary htn, CHF, chronic hypoxic respiratory failure, asthma, pt of Dr. Balbuena and Dr. Magana, htn, CKDIII, DMt2, ALYCE compliant with qhs CPAP, obesity, RA, who presents to the ER with c/o severe SOB that has worsened gradually for about 3 days. She also states that she just started to have chest heaviness in the ER. She has a nonproductive cough, no fever or chills, no sick contacts. She has severe Orthopnea, no PND. She wears CPAP at night. No LE edema, however she has noticed bloating of her abdomen and feels like she cannot empty her bladder. She started prednisone for her hip pain 3 days ago, depsite being on prednisone her breathing has worsened, and her blood glucose has severely elevated. She became much worse today after eating dinner at [employer] which consisted of fried fish and ge[place]ian fries. She has been using duonebs and albuterol with no relief. In the ER she has a cxr c/w infiltrates vs congestion, mildly elevated creatinine, severely elevated HTN, luekocytosis however she has been on steroids, and severely elevated glucose. She did not tolerate bipap for very long. 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 Pulmonary hypertension (Chronic) Moderate persistent asthma (Chronic) with secondary pulm HTN Rheumatoid arthritis (Chronic) IBS (irritable bowel syndrome) (Chronic) GERD (gastroesophageal reflux disease) (Chronic) Type II diabetes mellitus (Chronic) Benign essential hypertension (Chronic) Medical History: Medical History (Last Reviewed 02/02/18 @ 14:53 by Siddharth Magana MD) Atherosclerosis 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 angina pectoris (Chronic) I25.810 History of non-ST elevation myocardial infarction (NSTEMI) (Acute) I25.2 Atherosclerotic heart disease of [place] coronary artery without angina pectoris (Chronic) I25.10 Obesity (Chronic) E66.9 Hypothyroidism (Chronic) E03.9 Dyslipidemia (Chronic) E78.5 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 Pulmonary hypertension (Chronic) I27.20 Hypercapnia (Acute) R06.89 Acute respiratory failure with hypoxia (Ruled-out) J96.01 Asthma with acute exacerbation (Acute) J45.901 Moderate persistent asthma (Chronic) J45.40 with secondary pulm HTN Rheumatoid arthritis (Chronic) M06.9 IBS (irritable bowel syndrome) (Chronic) GERD (gastroesophageal reflux disease) (Chronic) K21.9 Type II diabetes mellitus (Chronic) E11.9 Benign essential hypertension (Chronic) I10 TIA (transient ischemic attack) G45.9 Ischemic cardiomyopathy I25.5 Allergies simvastatin [From Zocor] Allergy (Verified 03/10/18 16:12) Unknown lisinopril Adverse Reaction (Severe, Verified 03/10/18 16:12) cough oxycodone [From Percocet] Adverse Reaction (Severe, Verified 03/10/18 16:12) Bad Dreams acetaminophen [From Vicodin] Adverse Reaction (Verified 03/10/18 16:12) Vomiting hydrocodone bitartrate [From Vicodin] Adverse Reaction (Verified 03/10/18 16:12) Vomiting AMMONIUM LACTATE Allergy (Uncoded 03/10/18 16:12) Rash Home Medications: Ambulatory Orders Medication Instructions Recorded Aspirin [Aspirin, Baby] 81 mg PO DAILY@0800 08/23/13 Omeprazole [Prilosec] 40 mg PO DAILY 08/23/13 Budesonide Aerosol [Pulmicort 0.25 mg INHALATION Q12H 04/11/14 Respules] Isosorbide Mononitrate [Imdur] 60 mg PO DAILY #30 tab 12/31/15 Metoprolol Tartrate [Lopressor 50 mg PO BID #60 tab 12/31/15 (beta meredith)] Albuterol Aerosols [Ventolin 2.5 mg INHALATION BID 04/02/17 Aerosols] Insulin Regular, Human [Humulin R] 40 unit SQ BID 05/10/17 Calcitriol [Rocaltrol] 0.25 mcg PO DAILY 05/17/17 clopidogrel 75 mg tablet 75 mg PO DAILY #90 tab 11/25/17 Allopurinol 100 mg PO BID 03/10/18 Furosemide [Lasix] 20 - 80 mg PO DAILY 03/10/18 Insulin NPH Human [Humulin N Pen] 45 units SC BID 03/10/18 Oxygen, Home [Home Oxygen] 3 lpm NASAL DAILY 03/10/18 Pravastatin [Pravachol] 80 mg PO QHS 03/10/18 Prednisone 30 mg PO DAILY 03/10/18 busPIRone [Buspar] 5 mg PO BID 03/10/18 Surgical History: Surgical History (Last Reviewed 02/02/18 @ 14:53 by Siddharth Magana MD) Presence of stent in coronary artery (Chronic) Z95.5 PCI/MONSE SVG-PDA 11/2012 Aortocoronary bypass status Onset Date: ~2000 Z95.1 CABG x3-DENISE to LAD, SVG to LCX, SVG to RCA 2001 Postsurgical percutaneous transluminal coronary angioplasty (PTCA) status Z98.61 PCI/MONSE SVG-PDA 11/2012 History of section Z98.891 History of cholecystectomy Z90.49 Hx of appendectomy Z90.49 Surgical History: noncontributory, angioplasty, - Smoking Status: Never smoker - *Family History Paternal Family History: Family History (Last Reviewed 02/02/18 @ 14:53 by Siddharth Magana MD) Mother CAD (coronary artery disease) Daughter CAD (coronary artery disease) Abdominal aortic aneurysm (AAA) History Items: No pertinent history Sibling Family History: Family History (Last Reviewed 02/02/18 @ 14:53 by Siddharth Magana MD) Mother CAD (coronary artery disease) Daughter CAD (coronary artery disease) Abdominal aortic aneurysm (AAA) History Items: Cancer, Diabetes, Heart Disease Maternal Family History: Family History (Last Reviewed 02/02/18 @ 14:53 by Siddharth Magana MD) Mother CAD (coronary artery disease) Daughter CAD (coronary artery disease) Abdominal aortic aneurysm (AAA) History Items: No pertinent history Review of Systems Constitutional: Denies: Chills, Fever, Weight Change HEENT: Denies: Head Aches, Sinus Congestion, Sinus Drainage Cardiovascular: Reports: Heaviness, Orthopnea. Denies: Chest Pain, Chest Pressure, Chest Tightness, Light Headedness, Palpitations, Paroxysmal Noc. Dyspnea Respiratory: Reports: Cough, Shortness of Breath, Shortness of breath at rest, Shortness of breath upon exertion, Wheezing. Denies: Sputum production Gastrointestinal: Denies: Abdominal Pain, Nausea, Vomiting Genitourinary: Denies: Dysuria Musculoskeletal: Denies: Joint Pain, Joint Tenderness Skin: Denies: Rash, Wounds Neurological: Denies: Numbness, Tingling, Focal weakness Psychiatric: Denies: Anxiety, Depression, Homicidal Ideations, Suicidal Ideations Hematologic/ Lymphatic: Denies: Easy Bruising, Easy Bleeding VTE Information - Inpt Only VTE Present on Admission: No VTE Mechan Device Prophylaxis: None VTE Pharm Prophylaxis ordered?: Yes Patient Problems: Active and Suspected Problems (Last Reviewed 02/02/18 @ 14:53 by Siddharth Magana MD) Diabetes mellitus (Acute) ST segment changes on electrocardiogram (Acute) Hypertensive emergency (Acute) CHF (congestive heart failure) (Acute) - Physical Exam General: Alert, Oriented x3, Cooperative HEENT: Atraumatic, PERRLA, EOMI, Normocephalic Neck: Supple, No JVD, Negative Carotid Bruits Lungs: Rales, Wheezes Cardiovascular: Regular rate, No murmurs Abdomen: Bowel Sounds Present, Distended, Obese, Tender Extremities: No edema, Capillary Refill Less than 3 Seconds Skin: No rashes, No breakdown Musculoskeletal: No Tenderness to Palpation of Joints or Extremities Neurological: Cranial nerves II-XII grossly intact Psych/Mental Status: Normal Affect, Appropriate, Alert and oriented to time, place, person, mood and affect Vital Signs Temp Pulse Resp BP Pulse Ox 97.9 F 122 H 26 H 158/76 H 95 03/10/18 16:12 03/10/18 18:05 03/10/18 18:05 03/10/18 18:05 03/10/18 18:05 Oxygen Flow Rate (L/min) 3 Oxygen Delivery Method Nasal Cannula Weight: 222 lb 7.143 oz Body Mass Index (BMI) 39.4 Finger Stick Blood Glucose 251 Laboratory Tests Past 24 Hrs 03/10/18 03/10/18 03/10/18 16:13 16:13 18:00 WBC 15.7 H RBC 4.89 Hgb 13.8 Hct 43.7 MCV 89.4 MCH 28.2 MCHC 31.6 L RDW 13.3 RDW Differential 43.4 Plt Count 235 MPV 10.7 Immature Gran % (Auto) 0.300 Neut % (Auto) 89.3 H Lymph % (Auto) 8.1 L [place] % (Auto) 2.2 Eos % (Auto) 0.0 Baso % (Auto) 0.1 Absolute Neuts (auto) 14.1 H Absolute Lymphs (auto) 1.28 Total Counted Not Reportable Sodium 135 L Potassium 4.1 Chloride 95 L Carbon Dioxide 29.0 Anion Gap 11 BUN 32 H Creatinine 1.74 H Estim Creat Clear Calc 22.75 Est GFR (MDRD) Af Amer 37 L Est GFR (MDRD) Non-Af 30 L BUN/Creatinine Ratio 18.4 Glucose 556 H* Lactic Acid Pending Calcium 9.3 Troponin I 0.029 Assessment/Plan All Active Problems (Last Reviewed 02/02/18 @ 14:53 by Siddharth Magana MD) Diabetes mellitus (Acute) ST segment changes on electrocardiogram (Acute) Hypertensive emergency (Acute) CHF (congestive heart failure) (Acute) History of non-ST elevation myocardial infarction (NSTEMI) (Acute) RSV infection (Acute) Community acquired pneumonia (Acute) Hypercapnia (Acute) Acute respiratory failure with hypoxia (Ruled-out) Asthma with acute exacerbation (Acute) 1. Acute on chronic hypoxic respiratory failure - baseline 3lpm. She is not tolerating bipap well. She will be placed in the ICU. The exact etiology of her SOB/hypoxia is not clear. It seems that she has acute diastolic CHF complicated by pulmonary htn, as she has diffuse severe crackles and wheezing on exam, abdominal distention, CXR c/w CHF, and difficulty emptying her bladder, as well as acute worsening after a very salty meal. IV lasix will be started. BNP is pending. She also has a high white count, but this can be explained by the prednisone she has been on. No fever. She also has a hx of Asthma and respiratory failure so this may be a component and therefore she will continue IV solumedrol and duonebs. ABG is pending. The CXR could possibly respresent pna, and she does have a white count, so empiric abx will be continued at this time. She will be treated with IV lasix, abx, and steroids. A consult was placed to her state historical [employer] director Dr. Balbuena. She recently had a right heart cath. She will be placed back on bipap, a cisneros will be placed, UA will be ordered, lactate is pending, and she will be on fluid and salt restriction. A repeat CXR will be ordered for the AM. Blood cultures are pending, as are urine antigens. Echo ordered. -LA is 7.0 2. Presumed HTN emergency 2/2 CHF - IV hydralazine added. 3. Chest pressure - with hx of CAD - likely 2/2 #1, however there were ST depressions in the inferior leads initially. Enzymes will be cycled, cardiology is consulted, and a repeat EKG is ordered for the AM. She follows Dr. Magana. Echo ordered. Continue asa/plavix, statin, imdur, metoprolol. 4. DMt2 with Hyperglycemia, obesity - normal gap, given additional insulin in the ER. Add sliding scale to her regimen, may need further subq bolus tonight. Dietary consult, calorie controlled diet. 5. CKD III - monitor with lasix use. Somewhat above baseline at this time. 6. ALYCE - compliant with home CPAP per hx. DVT ppx: heparin DC planning: Lives with and grand-daughter, no reported debility, has home o2. Code status: initially the patient was considering DNR-CCA no cpr, no intubation, however later she decided she wanted to be full code. This patient was seen by Mekhi Youssef PA-C under the supervision of Doctor Aponte.
[2018-03-10 18:54] LABS: Lactic Acid 7.4 mmol/L (0.4-2.0)
[2018-03-10] MEDS: Furosemide 40 MG/4 ML Vial IV ×2 (19:02→22:04)
--- NOTE | 2018-03-10 19:23 | ED.RN ---
PT BG GLUCOSE CHECKED. VALUE >600. JULIAN BARNEY. NO NEW ORDERS AT THIS TIME.
[2018-03-10 19:26] LABS: Bedside Glucose > 500 mg/dL (70-110)
[2018-03-10 19:40] LABS: BNP,B-Type NATRIURETIC PEPTIDE 258.5 pg/mL (0-100)
[2018-03-10 20:31] LABS: Bedside Glucose > 500 mg/dL (70-110)
[2018-03-10 20:56] LABS: Hemoglobin A1c 9.4 % (4.2-6.3)
[2018-03-10 20:57] LABS: International Normalized Ratio 1.1; Magnesium 1.9 mg/dL (1.6-2.6); Prothrombin Time (Protime)PT. 14.2 SECONDS (11.7-14.9)
[2018-03-10 20:58] LABS: Glucose 692 mg/dL (74-106); Partial Thromboplast Time 29.1 Seconds (24.1-36.2)
[2018-03-10] MEDS: HEPARIN/D5w 25,000 UNITS 25,000 UNITS/250 ML IV.SOLN. 14 UNITS IV (21:59)
[2018-03-10] MEDS: Heparin Injection (Vial) 5,000 UNIT/ML VIAL 7500 UNIT IV (22:00)
[2018-03-10 22:07] LABS: Reflex Lactate? Y
[2018-03-10] MEDS: Metoprolol Tartrate 50 MG Tablet PO (22:14)
[2018-03-10] MEDS: busPIRone 5 MG Tablet PO (22:14)
[2018-03-10] MEDS: Allopurinol 100 MG Tablet PO (22:15)
[2018-03-10] MEDS: Pravastatin 80 MG Tablet PO (22:15)
[2018-03-10] MEDS: Insulin NPH Human 100 UNITS/ML PEN 45 UNITS SC (22:16)
--- NOTE | 2018-03-10 22:23 | PCM.CONS.C ---
Problem List (1) Abnormal cardiac enzyme level Status: Acute (2) CAD (coronary artery disease) Status: Chronic (3) Presence of stent in coronary artery Status: Chronic Comment: PCI/MONSE SVG-PDA 11/2012 (4) S/P CABG (coronary artery bypass graft) Status: Chronic (5) CHF (congestive heart failure) Status: Acute Qualifiers: Heart failure type: systolic (6) Dyslipidemia Status: Chronic (7) Hypertensive emergency Status: Acute (8) Pulmonary hypertension Status: Chronic (9) Diabetes mellitus Status: Acute Qualifiers: Diabetes mellitus type: type 2 (10) Community acquired pneumonia Status: Acute Reason for Consult Date of Consultation: 03/10/18 History of Present Illness: The patient is a 77 year old with a past cardiovascular history which is included underlying hyperlipidemia, hypertension, CAD, PCI, CABG, ischemic mediated cardiomyopathy, superimposed upon diabetes mellitus, pulmonary disease/COPD, who is now referred for abnormal cardiac enzymes in the setting of a hypertensive emergency with concerns of an underlying pneumonia and CHF. The patient states that she has not been feeling well for the last few days. She states that today while eating lunch in a restaurant she developed the sensation of chest heaviness and difficulty breathing. She initially denied any nausea or emesis or diaphoresis. She states there was no loss of consciousness. She notes her essential tremor worsened. She had her family summoned the EMS and she was brought to the emergency department for further evaluation. There she did state she had emesis. In the emergency department she was noted to be markedly hypertensive with systolic blood pressure in excess of 200 mmHg and diastolic blood pressure in excess of 100 mmHg. She was felt to have evidence of possible pneumonia as well as possible CHF. She underwent laboratory studies. Her cardiac enzyme level was elevated at 0.613. Her BNP level was elevated at 258.5. An ECG was obtained which appear to demonstrate underlying sinus rhythm/sinus tachycardia with PACs with a nonspecific IVCD pattern. A subsequent repeat ECG was performed which demonstrated similar type findings. A chest x-ray was performed which suggested the possibility of increased pulmonary vascularity as well as bilateral infiltrates potentially more prominent on the left than the right. She was placed in the ICU for further evaluation. She has been receiving pulmonary support. She is also been receiving medical management for her underlying cardiovascular concerns. This has included concerns of the abnormal cardiac enzymes being compatible with a non-ST segment elevation MN receiving medical therapy including IV heparin. At the same time there have been concerns about CHF and thus the patient has been receiving IV diuretics. Overall she states that her chest feels better. She notes she is still short of breath but not as much as she was earlier this afternoon. [] Past Medical History Allergies/Adverse Reactions: Allergies simvastatin [From Zocor] Allergy (Verified 03/10/18 16:12) Unknown lisinopril Adverse Reaction (Severe, Verified 03/10/18 16:12) cough oxycodone [From Percocet] Adverse Reaction (Severe, Verified 03/10/18 16:12) Bad Dreams acetaminophen [From Vicodin] Adverse Reaction (Verified 03/10/18 16:12) Vomiting hydrocodone bitartrate [From Vicodin] Adverse Reaction (Verified 03/10/18 16:12) Vomiting AMMONIUM LACTATE Allergy (Uncoded 03/10/18 16:12) Rash Home Medications: Ambulatory Orders Medication Instructions Recorded Aspirin [Aspirin, Baby] 81 mg PO DAILY@0800 08/23/13 Omeprazole [Prilosec] 40 mg PO DAILY 08/23/13 Budesonide Aerosol [Pulmicort 0.25 mg INHALATION Q12H 04/11/14 Respules] Isosorbide Mononitrate [Imdur] 60 mg PO DAILY #30 tab 12/31/15 Metoprolol Tartrate [Lopressor 50 mg PO BID #60 tab 12/31/15 (beta meredith)] Albuterol Aerosols [Ventolin 2.5 mg INHALATION BID 04/02/17 Aerosols] Insulin Regular, Human [Humulin R] 40 unit SQ BID 05/10/17 Calcitriol [Rocaltrol] 0.25 mcg PO DAILY 05/17/17 clopidogrel 75 mg tablet 75 mg PO DAILY #90 tab 11/25/17 Allopurinol 100 mg PO BID 03/10/18 Furosemide [Lasix] 20 - 80 mg PO DAILY 03/10/18 Insulin NPH Human [Humulin N Pen] 45 units SC BID 03/10/18 Oxygen, Home [Home Oxygen] 3 lpm NASAL DAILY 03/10/18 Pravastatin [Pravachol] 80 mg PO QHS 03/10/18 Prednisone 30 mg PO DAILY 03/10/18 busPIRone [Buspar] 5 mg PO BID 03/10/18 Past Medical History (Chronic Problems): Chronic Problems (Last Reviewed 02/02/18 @ 14:53 by Siddharth Magana MD) CKD (chronic kidney disease), stage III (Chronic) CAD (coronary artery disease) (Chronic) S/P CABG (coronary artery bypass graft) (Chronic) Atherosclerosis 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 angina pectoris (Chronic) Presence of stent in coronary artery (Chronic) PCI/MONSE SVG-PDA 11/2012 Atherosclerotic heart disease of [place] coronary artery without angina pectoris (Chronic) Obesity (Chronic) Hypothyroidism (Chronic) Dyslipidemia (Chronic) 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 Pulmonary hypertension (Chronic) Moderate persistent asthma (Chronic) with secondary pulm HTN Rheumatoid arthritis (Chronic) IBS (irritable bowel syndrome) (Chronic) GERD (gastroesophageal reflux disease) (Chronic) Type II diabetes mellitus (Chronic) Benign essential hypertension (Chronic) Surgical History: noncontributory, angioplasty, - - *Family History Paternal Family History: Family History (Last Reviewed 02/02/18 @ 14:53 by Siddharth Magana MD) Mother CAD (coronary artery disease) Daughter CAD (coronary artery disease) Abdominal aortic aneurysm (AAA) History Items: No pertinent history Sibling Family History: Family History (Last Reviewed 02/02/18 @ 14:53 by Siddharth Magana MD) Mother CAD (coronary artery disease) Daughter CAD (coronary artery disease) Abdominal aortic aneurysm (AAA) History Items: Cancer, Diabetes, Heart Disease Maternal Family History: Family History (Last Reviewed 02/02/18 @ 14:53 by Siddharth Magana MD) Mother CAD (coronary artery disease) Daughter CAD (coronary artery disease) Abdominal aortic aneurysm (AAA) History Items: No pertinent history Smoking Status: Never smoker Alcohol: None Drugs: None Review of Systems - Review of Systems General: Denies: Fever, Night Sweats, Fatigue Cardiovascular: Reports: Chest Discomfort, Chest Discomfort at Rest, Shortness of Breath, Shortness of Breath at Rest, Shortness of Breath with Exertion, Peripheral Edema. Denies: Orthopnea, PND, Palpitations, Lightheadedness, Dizziness, Near Syncope, Syncope Respiratory: Reports: Cough, Sputum Production, Shortness of Breath. Denies: Hemoptysis Gastrointestinal: Reports: Emesis. Denies: Hematemesis, Hematochezia, Melena Genitourinary: Denies: Dysuria, Hematuria Skin: Denies: Rash Subjectve: This is a 77-year-old white female who appears to be resting comfortably at the moment in no acute distress. Objective: Vital Signs Temp Pulse Resp BP Pulse Ox 98.6 F 84 18 167/85 H 93 03/10/18 19:03 03/10/18 22:14 03/10/18 19:18 03/10/18 22:14 03/10/18 19:03 Oxygen Flow Rate (L/min) 3 Oxygen Delivery Method Nasal Cannula Weight: 203 lb 11.314 oz Body Mass Index (BMI) 36.1 Finger Stick Blood Glucose 600 General: Awake, Alert, Oriented x 3, Cooperative, Ill Appearing HEENT: Atraumatic, Normocephalic, PERRL, EOMI, Sclera Non Icteric Oral: Moist Mucosa Neck: Supple, Good ROM, No JVD Lungs: - - Scattered rhonchi Cardiovascular: Regular Rhythm, Premature Ectopic Beats, Normal S1, Normal S2 Vascular: No Carotid Bruits Abdomen: Bowel Sounds Present, Soft, Non Tender Extremities: No edema Psych/Mental Status: Appropriate 03/10/18 16:13: WBC 15.7 H, RBC 4.89, Hgb 13.8, Hct 43.7, MCV 89.4, MCH 28.2, MCHC 31.6 L, RDW 13.3, RDW Differential 43.4, Plt Count 235, MPV 10.7, Immature Gran % (Auto) 0.300, Neut % (Auto) 89.3 H, Lymph % (Auto) 8.1 L, [place] % (Auto) 2.2, Eos % (Auto) 0.0, Baso % (Auto) 0.1, Absolute Neuts (auto) 14.1 H, Total Counted Not Reportable 03/10/18 16:13: Sodium 135 L, Potassium 4.1, Chloride 95 L, Carbon Dioxide 29.0, Anion Gap 11, BUN 32 H, Creatinine 1.74 H, Est GFR (MDRD) Af Amer 37 L, Est GFR (MDRD) Non-Af 30 L, BUN/Creatinine Ratio 18.4, Glucose 556 H*, Calcium 9.3, Troponin I 0.029 03/10/18 18:00: Lactic Acid 7.4 H* 03/10/18 18:36: B-Natriuretic Peptide 258.5 H 03/10/18 20:12: Magnesium 1.9, Troponin I 0.613 H* 03/10/18 20:12: Hemoglobin A1c 9.4 H 03/10/18 20:12: PT 14.2, INR 1.1, APTT 29.1 03/10/18 20:12: Glucose 692 H* Rhythm: As noted above EKG: As noted above ECHO: 04/03/2017: Mildly dilated left ventricle; left ventricular regional wall motion abnormality; LVEF 50-55%; trivial MR; trivial TR; estimated RV systolic pressure 48 mmHg Stress Test: 04/03/2017: Pharmacologic stress nuclear imaging study: Myocardial perfusion appearing within normal limits with a gated LVEF of 53% Cardiac Cath: 12/31/2015: [facility]: Elevated left ventricular end-diastolic pressure; left ventricle with severe hypokinesis of the basal inferior segment with severe hypokinesis of the mid inferior segment and hypokinesis of the inferior apical segment with a reported LVEF of 50%; left main coronary artery normal; LAD with proximal diffuse 50-75% stenosis and status post a septal agriculture specialist and diagonal branch the LAD was occluded and subsequently filling from a DENISE graft and appearing to be a small caliber vessel with no angiographically significant appearing disease; diagonal branch with proximal diffuse 85% appearing stenosis; LCx with proximal 10-25% stenosis MN: First OM occluded and filling from a sequential SVG graft attaching to both bifurcating branches; RCA proximally occluded with the distal system filling from an SVG graft; DENISE to the LAD patent; SVG to the LCx sequential graft system demonstrates following the first attachment a 50% eccentric appearing stenosis followed by a more distal 25% eccentric appearing stenosis; SVG graft to the RCA system appears to be patent 10/28/2017: [facility]: Right heart catheterization: Summary: Predominantly post capillary pulmonary hypertension with preserved cardiac index PCI: 11/09/2012: [facility]: Unsuccessful angioplasty of the proximal first diagonal branch; successful PTCA/stent/MONSE to the SVG graft to the right PDA CT Surgery: DENISE to the LAD, SVG sequential graft to the OM system, SVG to the RCA CXR: As noted above Assessment/Plan 1. Abnormal cardiac enzymes The patient does have evidence of abnormal cardiac enzymes. It is unclear whether this represents a type I acute coronary syndrome event versus a type II supply demand mismatch event secondary to the patient's underlying pulmonary disease process, etc. The present time the patient will continue to be monitored. This will include following her cardiac enzymes and her ECG. An echocardiogram can be requested and attempt to reassess her left ventricular wall motion. She may eventually need further evaluation with noninvasive and invasive studies of her coronary anatomy and physiology. In the meantime she will continue medical management. She is on aspirin, antiplatelet therapy with clopidogrel/Plavix, nitrates, beta-blockers, lipid-lowering agents, and anticoagulants. 2. CAD status post PCI status post CABG The patient has history of extensive underlying coronary artery disease as previously documented. At the moment it is unclear whether she has a type I acute coronary syndrome event versus a type II supply demand mismatch event. At the present time she will continue to be followed as noted above. She will continue medical management. Again she may eventually need further noninvasive or invasive evaluation of her coronary/graft anatomy. 3. CHF: Acute systolic The patient appears to have symptoms and objective findings compatible with CHF. This may be acute systolic based upon her history. Again it is unclear whether this is related to a change in her underlying coronary or graft anatomy versus her dietary indiscretion with recent intake of sauerkraut and sausage/increased salt load producing CHF/pulmonary edema. She claims not to have missed any of her medications. At the present time she will continue in the ICU. Her respiratory status will be followed. She will continue medical management. This will include IV diuretic therapy. 4. Dyslipidemia She will continue risk factor evaluation care as tolerated. 5. Hypertensive emergency The patient's blood pressure was markedly elevated. Again it is unclear whether this is a primary event versus being secondary to her cardiopulmonary concerns with concerns of CHF and pulmonary edema as well as pneumonia. At the present time her blood pressures are being followed. She is being treated medically. 6. Pulmonary hypertension The patient has been evaluated at the [facility] for pulmonary hypertension. She underwent right heart cardiac catheterization in October 2017. The summary is as noted above. She states she was told to follow with her primary carpet weaver Dr. Balbuena for further evaluation and care. 7. Diabetes mellitus She will continue evaluation care per internal medicine. 8. Pneumonia There is concern that she has an underlying pneumonia. She is being treated with antibiotic therapy. Overall, at the present time, the patient will continue to be monitored in the ICU. She is now on aspirin, antiplatelet therapy, nitrates, beta-blockers, diuretics, lipid-lowering agents, and IV heparin. She is not on afterload reducing agents in the form of CODY inhibitors or ARB secondary to concerns of allergies . She can be needed with alternative afterload reducing agent such as hydralazine. She is going to have an echocardiogram to reassess her left ventricular wall motion and systolic function. This may also help with respect to estimating her right-sided pressures. Again she may need further noninvasive or invasive evaluation of her artery vascular status as her clinical course stabilizes. She is also being treated for concerns of underlying pneumonia in the interim. Comment: The patient's case has been previously discussed and reviewed with Kayla Aponte MD. This note was generated using a voice recognition system and there may be incorrect words, spelling or punctuation that were not noted when reviewing the office note prior to saving.
[2018-03-10 22:58] LABS: Lactic Acid 5.8 mmol/L (0.4-2.0)
[2018-03-10 23:03] LABS: Bacteria 0 SEEN /hpf (None Seen); Color, Urine Yellow (Yellow); Glucose, Dipstick 1000 mg/dl (Normal); Ketone-Dipstick Negative (Negative); Leukocyte Esterase-Dipstick Negative /ul (Negative); Mucous, Urine 0 SEEN /hpf (<or=2+); Nitrite-Dipstick Negative (Negative); Occult Blood-Urine Negative /ul (Negative); Protein-Dipstick Negative (Negative); Red Blood Cells-Urine 0 SEEN /hpf (0-5); Squamous Epithelial Cells - UA 0 SEEN /hpf (5-10); Urine Bilirubin Dipstick Negative (Negative); Urine Clarity Clear (Clear); Urine Urobilinogen Normal (Normal); White Blood Cells 0 SEEN /hpf (0-5)
[2018-03-11] VITALS (34 sets, daily range): BP systolic 121–176; BP diastolic 51–91; PULSE 57–72; RESP 15–26; TEMP 36.6–37.5; O2SAT 96–99
[2018-03-11] MEDS: MELATONIN 10 MG TABLET 5 MG PO (00:49)
[2018-03-11 01:52] LABS: Lactic Acid 4.6 mmol/L (0.4-2.0)
[2018-03-11 02:06] LABS: Bedside Glucose > 500 mg/dL (70-110)
[2018-03-11] MEDS: Insulin Lispro 100 UNIT/ML INSULN.PEN 18 UNIT SC (02:24)
[2018-03-11 04:34] LABS: Absolute Lymphocyte Count 0.61 X10^3/ul (0.83-4.51); Absolute Neutrophil Count 11.7 X10^3/uL (2.0-7.7); Basophil# 0.01 X10^3/uL; Basophil% 0.1 % (0-1); Hematocrit 38.3 % (37-47); Hemoglobin 12.3 g/dl (12.0-15.0); Lymphocyte # 0.61 X10^3/ul (4.0); Lymphocyte % 4.8 % (19-41); Mean Corp Hgb Conc 32.1 g/gl (32-36); Mean Corpuscular Hgb 28.3 pg (27.0-32.0); Mean Corpuscular Volume 88.2 fL (81-99); Monocyte% 3.1 % (0-10); Neutrophil # 11.74 X10^3/uL (2.7-7.7); Neutrophil % 91.8 % (47-70); Platelet Count 193 K/mm3 (150-450); RBC Distribution Width CV 13.5 % (11.6-14.6); RBC Distribution Width SD 42.5 fl (35.1-43.9); Red Blood Count 4.34 M/mm3 (4.2-5.4); White Blood Count 12.8 K/mm3 (4.4-11.0)
[2018-03-11 04:35] LABS: POSITIVE COUNT NO; POSITIVE DIFFERENTIAL NO; POSITIVE MORPHOLOGY NO
[2018-03-11 04:38] LABS: Anion Gap 9 (5-15); BUN 37 mg/dL (7-18); BUN/Creat Ratio 20.9 RATIO (10-20); Calcium,Total 9.2 mg/dL (8.5-10.1); Chloride 95 mmol/L (98-107); Cholesterol 120 mg/dL (200); Creatinine, Serum 1.77 mg/dL (0.55-1.02); EST Glomerular Filtration Rate 30 mL/min (>60); Est Glom Filt Rate - Afr Amer 36 mL/min (>60); Estimated Creatinine Clearance 22.37 ml/min; Glucose 513 mg/dL (74-106); High Density Lipoprotein 56 mg/dL; Potassium 4.5 mmol/L (3.5-5.1); Sodium Level 138 mmol/L (136-145); Triglycerides 62 mg/dL; Very Low Density Lipoprotein 12 mg/dL (5-40)
[2018-03-11 04:42] LABS: Partial Thromboplast Time > 250.0 Seconds (24.1-36.2)
[2018-03-11 05:20] LABS: Reflex Lactate? Y
[2018-03-11] MEDS: Furosemide 40 MG/4 ML Vial IV ×3 (05:51→21:44)
[2018-03-11] MEDS: hydrALAZINE 25 MG Tablet PO ×3 (05:51→21:44)
[2018-03-11] MEDS: Insulin Lispro 100 UNIT/ML INSULN.PEN SC ×2 (05:52→08:12)
--- NOTE | 2018-03-11 05:55 | ECHOCS_ITS ---
Reason For Study: CHF Procedure This was a 2D Doppler, Color Flow transthoracic echocardiogram. The study was technically difficult. Contrast injection was performed. Exam performed portable in ICU/CCU. Left Ventricle Mildly dilated left ventricle. Segmental dysfunction with preserved ejection fraction (see wall motion). The estimated ejection fraction is 55 %. Posterior-Basal: Hypokinetic. Infero-Basal: Akinetic. Basal inferoseptal: Hypokinetic. Mid-Inferior: Hypokinetic. Inferior [place] : Hypokinetic. Right Ventricle Normal RV size. Normal systolic function. Atria The left atrium is mildly enlarged. Normal right atrium. No doppler evidence for ASD. Mitral Valve There is mild mitral annular calcification. Normal mitral valve. Trivial mitral valve insufficiency. Tricuspid Valve The tricuspid valve is not well visualized. Trivial tricuspid valve insufficiency. Unable to estimate RV systolic pressure/pulmonary artery pressure due to technically difficult study. Aortic Valve Trisinus/trileaflet aortic valve. Normal aortic valve. Pulmonic Valve The pulmonic valve is not well visualized. Trivial pulmonic valve insufficiency. Great Vessels Normal sized aortic root. Pericardium/Pleural No pericardial effusion. Medication Diluted definity 5ml given slow IV push to enhance endocardial definition. MMode/2D Measurements & Calculations LVIDd: 5.2 cm IVSd: 0.73 cm Ao root diam: 3.1 cm LVIDs: 3.8 cm LVPWd: 1.3 cm LA dimension: 4.1 cm FS: 26.1 % LAV(MOD-bp): 57.0 ml LVAd ap4: 28.2 cm2 SV(MOD-sp4): 51.6 ml LAV(MOD-bp) Indexed: 29.4 ml/m2 EDV(MOD-sp4): 91.0 ml LAV(MOD-sp2): 57.5 ml EDV(sp4-el): 95.3 ml LAV(MOD-sp4): 50.7 ml LVAs ap4: 16.9 cm2 ESV(MOD-sp4): 39.4 ml ESV(sp4-el): 39.6 ml EF(MOD-sp4): 56.7 % EF(sp4-el): 58.4 % SV(sp4-el): 55.7 ml LA A4 area: 19.2 cm2 RA A4 area: 13.6 cm2 Time Measurements MV dec time: 0.24 sec Doppler Measurements & Calculations MV E max doug: 127.3 cm/sec Lat Peak E' Doug: 7.9 cm/sec Med Peak E' Doug: 4.4 cm/sec MV A max doug: 89.7 cm/sec E/E' lat: 16.2 E/E' med: 29.0 MV E/A: 1.4 MV V2 max: 140.6 cm/sec MV P1/2t max doug: 142.5 cm/sec Ao V2 max: 172.6 cm/sec MV max P.9 mmHg MV P1/2t: 90.7 msec Ao max P.9 mmHg MV V2 mean: 88.0 cm/sec MV mean P.6 mmHg MV dec slope: 460.2 cm/sec2 MV V2 VTI: 43.7 cm MVA(P1/2t): 2.4 cm2 LV V1 max: 85.9 cm/sec PA V2 max: 126.2 cm/sec LV V1 max P.0 mmHg Interpretation Summary The study was technically difficult. Contrast injection was performed. Mildly dilated left ventricle. Segmental dysfunction with preserved ejection fraction (see wall motion). The estimated ejection fraction is 55 %. The left atrium is mildly enlarged. There is mild mitral annular calcification. Trivial tricuspid valve insufficiency. Trivial pulmonic valve insufficiency. Unable to estimate RV systolic pressure/pulmonary artery pressure due to technically difficult study. Transmitral diastolic flow velocities suggest diastolic dysfunction (pseudonormal pattern). Ordering Physician: Mekhi Youssef Referring Physician: Jeffrey Lopez Performed By: Bernard Doty RCS
--- NOTE | 2018-03-11 05:55 | EKG12_ITS ---
Test Reason : AM EKG Blood Pressure : / mmHG Vent. Rate : 060 BPM Atrial Rate : 060 BPM P-R Int : 138 ms QRS Dur : 114 ms QT Int : 474 ms P-R-T Axes : 000 -06 176 degrees QTc Int : 474 ms Sinus rhythm with Premature supraventricular complexes Nonspecific intra ventricular conduction delay Abnormal ECG Confirmed by RENETTA CURRY, ROSSY ([id number]), make up editor KARSON FARRELL ([id number]) on 03/12/2018 2:49:10 PM Referred By: MATT Confirmed By:ROSSY JACKSON MD
[2018-03-11 06:25] LABS: Bedside Glucose 445 mg/dL (70-110)
--- NOTE | 2018-03-11 06:57 | RAD_ITS ---
STUDY: X-RAY CHEST REASON FOR EXAM: Female, 77 years old. Shortness of breath. TECHNIQUE: Single AP portable view of the chest. COMPARISON: Comparison is made with prior study dated March 10, 2018. FINDINGS: EKG electrodes are seen. Stable elevation of the right hemidiaphragm. Since prior study, there has been improved aeration of the left lung as well as the right lung base. Mild residual changes persist. There is no demonstrated pleural abnormality. Sternal cerclage wires and vascular clips are present from a prior sternotomy and coronary artery bypass graft procedure (CABG). Borderline cardiomegaly. Normal mediastinum and billy. Normal visualized pulmonary arteries. Normal visualized aortic arch and descending thoracic aorta. There are diffuse degenerative changes of the visualized thoracic spine. Normal visualized ribs, clavicles, and shoulders. There is no demonstrated abnormality of the visualized soft tissue structures of the upper abdomen. RAD/Chest 1 View (Portable) IMPRESSION: Stable elevation of the right hemidiaphragm. Improved aeration of the lung bases. Electronically Signed: Steve Ferreira MD at 15:26 EST Tel [phone], Service support ,
[2018-03-11] MEDS: Budesonide Respules 0.5 MG/2 ML AMPUL.NEB. INHALATION (07:06)
[2018-03-11] MEDS: Ipratropium/Albuterol Sulfate 3 ML AMPUL.NEB INHALATION (07:06)
--- NOTE | 2018-03-11 07:09 | PCM.CON.CC ---
Reason for Consult Date of Consultation: 03/11/18 Reason for Consultation: Acute on Chronic hypoxemic respiratory failure History of Present Illness: The patient is a 77-year-old female, with a history as outlined below, who presented to the emergency department on March 10 with chest pain and progressive shortness of breath over several days duration. The patient reports that she ate at the [employer] restaurant yesterday and that upon finishing her meal, her shortness of breath had worsened. She does report dietary indiscretions, including the consumption of fried fish and [place]an fries yesterday. The patient has a history of coronary artery disease and underwent bypass surgery previously. She currently follows with Dr. Magana on an outpatient basis and was last seen by him at the end of January 2018. Her last surface echocardiogram from March 2017 revealed evidence of stage II diastolic dysfunction along with a right ventricular systolic pressure estimated to be 48 mmHg. In addition to the aforementioned, the patient also has a known history of obstructive sleep apnea and chronic hypoxemic respiratory failure, along with pulmonary hypertension. She was seen by our nurse practitioner in April 2017, but then apparently transitioned her care back to her prior provider, Dr. Balbuena. She was evaluated in the pulmonary hypertension clinic at [facility] in November 2017. She was felt to have underlying pulmonary venous hypertension as a consequence of her heart failure with preserved ejection fraction. Her pulmonary function testing completed at that time revealed findings consistent with obesity related restrictive lung disease. She was not felt to have underlying COPD or asthma. Her shortness of breath was felt to be the consequence of a lack of volume control due to dietary indiscretions along with uncontrolled hypertension and obstructive sleep apnea. On presentation to the emergency department, the patient was noted to be afebrile, tachycardic and hypertensive with a blood pressure of 201/107 mmHg. She was tachypneic and hypoxic. Initial laboratory evaluation revealed elevated white blood cell count to 16,000. Chemistry profile was notable for acute on chronic kidney disease with a creatinine of 1.74. The patient had an elevated blood glucose to 556 with a hemoglobin A1c noted to be 9.4. Her serum lactate was elevated to 7.4. BNP was elevated to 259 and the patient does have an active troponin leak with the last level noted to be 7.78. With the exception of elevated glucose, the patient's urinalysis was largely unremarkable. Chest x-ray revealed left perihilar fullness. In the emergency department, the patient received aerosol treatments and was started on BiPAP, Lasix and antibiotics. The patient was subsequently transferred to the medical intensive care unit for ongoing management. 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 Pulmonary hypertension (Chronic) Moderate persistent asthma (Chronic) with secondary pulm HTN Rheumatoid arthritis (Chronic) IBS (irritable bowel syndrome) (Chronic) GERD (gastroesophageal reflux disease) (Chronic) Type II diabetes mellitus (Chronic) Benign essential hypertension (Chronic) Medical History: Medical History (Last Reviewed 02/02/18 @ 14:53 by Siddharth Magana MD) Atherosclerosis 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 angina pectoris (Chronic) I25.810 History of non-ST elevation myocardial infarction (NSTEMI) (Acute) I25.2 Atherosclerotic heart disease of [place] coronary artery without angina pectoris (Chronic) I25.10 Obesity (Chronic) E66.9 Hypothyroidism (Chronic) E03.9 Dyslipidemia (Chronic) E78.5 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 Pulmonary hypertension (Chronic) I27.20 Hypercapnia (Acute) R06.89 Acute respiratory failure with hypoxia (Ruled-out) J96.01 Asthma with acute exacerbation (Acute) J45.901 Moderate persistent asthma (Chronic) J45.40 with secondary pulm HTN Rheumatoid arthritis (Chronic) M06.9 IBS (irritable bowel syndrome) (Chronic) GERD (gastroesophageal reflux disease) (Chronic) K21.9 Type II diabetes mellitus (Chronic) E11.9 Benign essential hypertension (Chronic) I10 TIA (transient ischemic attack) G45.9 Ischemic cardiomyopathy I25.5 Allergies simvastatin [From Zocor] Allergy (Verified 03/10/18 16:12) Unknown lisinopril Adverse Reaction (Severe, Verified 03/10/18 16:12) cough oxycodone [From Percocet] Adverse Reaction (Severe, Verified 03/10/18 16:12) Bad Dreams acetaminophen [From Vicodin] Adverse Reaction (Verified 03/10/18 16:12) Vomiting hydrocodone bitartrate [From Vicodin] Adverse Reaction (Verified 03/10/18 16:12) Vomiting AMMONIUM LACTATE Allergy (Uncoded 03/10/18 16:12) Rash Home Medications: Ambulatory Orders Medication Instructions Recorded Aspirin [Aspirin, Baby] 81 mg PO DAILY@0800 08/23/13 Omeprazole [Prilosec] 40 mg PO DAILY 08/23/13 Budesonide Aerosol [Pulmicort 0.25 mg INHALATION Q12H 04/11/14 Respules] Isosorbide Mononitrate [Imdur] 60 mg PO DAILY #30 tab 12/31/15 Metoprolol Tartrate [Lopressor 50 mg PO BID #60 tab 12/31/15 (beta meredith)] Albuterol Aerosols [Ventolin 2.5 mg INHALATION BID 04/02/17 Aerosols] Insulin Regular, Human [Humulin R] 40 unit SQ BID 05/10/17 Calcitriol [Rocaltrol] 0.25 mcg PO DAILY 05/17/17 clopidogrel 75 mg tablet 75 mg PO DAILY #90 tab 11/25/17 Allopurinol 100 mg PO BID 03/10/18 Furosemide [Lasix] 20 - 80 mg PO DAILY 03/10/18 Insulin NPH Human [Humulin N Pen] 45 units SC BID 03/10/18 Oxygen, Home [Home Oxygen] 3 lpm NASAL DAILY 03/10/18 Pravastatin [Pravachol] 80 mg PO QHS 03/10/18 Prednisone 30 mg PO DAILY 03/10/18 busPIRone [Buspar] 5 mg PO BID 03/10/18 Surgical History: Surgical History (Last Reviewed 02/02/18 @ 14:53 by Siddharth Magana MD) Presence of stent in coronary artery (Chronic) Z95.5 PCI/MONSE SVG-PDA 11/2012 Aortocoronary bypass status Onset Date: ~2000 Z95.1 CABG x3-DENISE to LAD, SVG to LCX, SVG to RCA 2000 Postsurgical percutaneous transluminal coronary angioplasty (PTCA) status Z98.61 PCI/MONSE SVG-PDA 11/2012 History of section Z98.891 History of cholecystectomy Z90.49 Hx of appendectomy Z90.49 Surgical History: noncontributory, angioplasty, - Smoking Status: Never smoker Alcohol: None Drugs: None - *Family History Paternal Family History: Family History (Last Reviewed 02/02/18 @ 14:53 by Siddharth Magana MD) Mother CAD (coronary artery disease) Daughter CAD (coronary artery disease) Abdominal aortic aneurysm (AAA) History Items: No pertinent history Sibling Family History: Family History (Last Reviewed 02/02/18 @ 14:53 by Siddharth Magana MD) Mother CAD (coronary artery disease) Daughter CAD (coronary artery disease) Abdominal aortic aneurysm (AAA) History Items: Cancer, Diabetes, Heart Disease Maternal Family History: Family History (Last Reviewed 02/02/18 @ 14:53 by Siddharth Magana MD) Mother CAD (coronary artery disease) Daughter CAD (coronary artery disease) Abdominal aortic aneurysm (AAA) History Items: No pertinent history Review of Systems Constitutional: Denies: Chills, Fever, Night Sweats Eyes: Denies: Blurred vision, Double vision HEENT: Denies: Head Aches, Sinus Congestion, Sinus Drainage Cardiovascular: Reports: Chest Pain Respiratory: Reports: Shortness of Breath. Denies: Cough, Sputum production Gastrointestinal: Denies: Abdominal Pain, Nausea, Vomiting Genitourinary: Denies: Dysuria Musculoskeletal: Denies: Joint Pain, Joint Tenderness Skin: Denies: Rash, Wounds Neurological: Denies: Numbness, Tingling, Focal weakness Psychiatric: Reports: Anxiety Hematologic/ Lymphatic: Denies: Easy Bruising, Easy Bleeding Patient Problems: Active and Suspected Problems (Last Reviewed 02/02/18 @ 14:53 by Siddharth Magana MD) Diabetes mellitus (Acute) ST segment changes on electrocardiogram (Acute) Hypertensive emergency (Acute) CHF (congestive heart failure) (Acute) Abnormal cardiac enzyme level (Acute) Objective: The patient's most recent lab work, culture data and imaging studies have all been personally reviewed. - Physical Exam General: Alert, Oriented x3, Cooperative, No apparent distress, - - Sitting upright in bed, eating breakfast. HEENT: Atraumatic, PERRLA, Normocephalic Oral: No Gingival or Mucosal Lesions/ Ulcerations Neck: Supple, No Nodes, Trachea Midline Lungs: No rhonchi, No wheeze, Diminished, Rales Cardiovascular: Regular rate, Regular Rhythm, Normal S1, Normal S2, No murmurs Abdomen: Bowel Sounds Present, Soft, Non Tender, Obese Extremities: No clubbing, No cyanosis, No edema Skin: No breakdown Musculoskeletal: No Tenderness to Palpation of Joints or Extremities, No Muscle Wasting Lymphatic: No Cervical, Supraclavicular, or Inguinal Adenopathy Neurological: Cranial nerves II-XII grossly intact, Neuro grossly intact Psych/Mental Status: Normal Affect, Appropriate Vital Signs Temp Pulse Resp BP Pulse Ox 36.6 C 60 18 162/62 H 97 03/11/18 06:00 03/11/18 07:06 03/11/18 07:06 03/11/18 06:00 03/11/18 06:00 Oxygen Flow Rate (L/min) 3 Oxygen Delivery Method Nasal Cannula Weight: 202 lb 9.677 oz Body Mass Index (BMI) 36.1 Finger Stick Blood Glucose 600 Intake and Output for Last 24 Hours 03/09/18 03/10/18 03/11/18 23:59 23:59 23:59 Intake Total 1321.0 / 1321.0 Output Total 2650 / 2650 Balance -1329.0 / -1329.0 Microbiology Past 72 Hours 03/10/18 19:25 Respiratory Panel (PCR) - Final Mucosa - Nasopharyngeal Laboratory Tests Past 24 Hrs 03/10/18 03/10/18 03/10/18 16:13 16:13 18:00 WBC 15.7 H RBC 4.89 Hgb 13.8 Hct 43.7 MCV 89.4 MCH 28.2 MCHC 31.6 L RDW 13.3 RDW Differential 43.4 Plt Count 235 MPV 10.7 Immature Gran % (Auto) 0.300 Neut % (Auto) 89.3 H Lymph % (Auto) 8.1 L Snyder % (Auto) 2.2 Eos % (Auto) 0.0 Baso % (Auto) 0.1 Absolute Neuts (auto) 14.1 H Absolute Lymphs (auto) 1.28 Total Counted Not Reportable PT INR APTT Sodium 135 L Potassium 4.1 Chloride 95 L Carbon Dioxide 29.0 Anion Gap 11 BUN 32 H Creatinine 1.74 H Estim Creat Clear Calc 22.75 Est GFR (MDRD) Af Amer 37 L Est GFR (MDRD) Non-Af 30 L BUN/Creatinine Ratio 18.4 Glucose 556 H* Hemoglobin A1c Lactic Acid 7.4 H* Calcium 9.3 Magnesium Troponin I 0.029 B-Natriuretic Peptide Triglycerides Cholesterol LDL Cholesterol VLDL Cholesterol HDL Cholesterol Urine Color Urine Clarity Urine pH Ur Specific [place] Urine Protein Urine Glucose (UA) Urine Ketones Urine Occult Blood Urine Nitrite Urine Bilirubin Urine Urobilinogen Ur Leukocyte Esterase Urine RBC Urine WBC Ur Squamous Epith Cells Urine Bacteria Urine Mucus 03/10/18 03/10/18 03/10/18 18:36 20:12 20:12 WBC RBC Hgb Hct MCV MCH MCHC RDW RDW Differential Plt Count MPV Immature Gran % (Auto) Neut % (Auto) Lymph % (Auto) Snyder % (Auto) Eos % (Auto) Baso % (Auto) Absolute Neuts (auto) Absolute Lymphs (auto) Total Counted PT INR APTT Sodium Potassium Chloride Carbon Dioxide Anion Gap BUN Creatinine Estim Creat Clear Calc Est GFR (MDRD) Af Amer Est GFR (MDRD) Non-Af BUN/Creatinine Ratio Glucose Hemoglobin A1c 9.4 H Lactic Acid Calcium Magnesium 1.9 Troponin I 0.613 H* B-Natriuretic Peptide 258.5 H Triglycerides Cholesterol LDL Cholesterol VLDL Cholesterol HDL Cholesterol Urine Color Urine Clarity Urine pH Ur Specific [place] Urine Protein Urine Glucose (UA) Urine Ketones Urine Occult Blood Urine Nitrite Urine Bilirubin Urine Urobilinogen Ur Leukocyte Esterase Urine RBC Urine WBC Ur Squamous Epith Cells Urine Bacteria Urine Mucus 03/10/18 03/10/18 03/10/18 20:12 20:12 20:40 WBC RBC Hgb Hct MCV MCH MCHC RDW RDW Differential Plt Count MPV Immature Gran % (Auto) Neut % (Auto) Lymph % (Auto) Snyder % (Auto) Eos % (Auto) Baso % (Auto) Absolute Neuts (auto) Absolute Lymphs (auto) Total Counted PT 14.2 INR 1.1 APTT 29.1 Sodium Potassium Chloride Carbon Dioxide Anion Gap BUN Creatinine Estim Creat Clear Calc Est GFR (MDRD) Af Amer Est GFR (MDRD) Non-Af BUN/Creatinine Ratio Glucose 692 H* Hemoglobin A1c Lactic Acid Calcium Magnesium Troponin I B-Natriuretic Peptide Triglycerides Cholesterol LDL Cholesterol VLDL Cholesterol HDL Cholesterol Urine Color Yellow Urine Clarity Clear Urine pH 6.0 Ur Specific [place] 1.010 Urine Protein Negative Urine Glucose (UA) 1000 H Urine Ketones Negative Urine Occult Blood Negative Urine Nitrite Negative Urine Bilirubin Negative Urine Urobilinogen Normal Ur Leukocyte Esterase Negative Urine RBC 0 SEEN Urine WBC 0 SEEN Ur Squamous Epith Cells 0 SEEN Urine Bacteria 0 SEEN Urine Mucus 0 SEEN 03/10/18 03/10/18 03/11/18 22:20 22:20 01:15 WBC RBC Hgb Hct MCV MCH MCHC RDW RDW Differential Plt Count MPV Immature Gran % (Auto) Neut % (Auto) Lymph % (Auto) Snyder % (Auto) Eos % (Auto) Baso % (Auto) Absolute Neuts (auto) Absolute Lymphs (auto) Total Counted PT INR APTT Sodium Potassium Chloride Carbon Dioxide Anion Gap BUN Creatinine Estim Creat Clear Calc Est GFR (MDRD) Af Amer Est GFR (MDRD) Non-Af BUN/Creatinine Ratio Glucose Hemoglobin A1c Lactic Acid 5.8 H* Calcium Magnesium Troponin I 2.090 H* 6.680 H* B-Natriuretic Peptide Triglycerides Cholesterol LDL Cholesterol VLDL Cholesterol HDL Cholesterol Urine Color Urine Clarity Urine pH Ur Specific [place] Urine Protein Urine Glucose (UA) Urine Ketones Urine Occult Blood Urine Nitrite Urine Bilirubin Urine Urobilinogen Ur Leukocyte Esterase Urine RBC Urine WBC Ur Squamous Epith Cells Urine Bacteria Urine Mucus 03/11/18 03/11/18 03/11/18 01:15 04:10 04:10 WBC 12.8 H RBC 4.34 Hgb 12.3 Hct 38.3 MCV 88.2 MCH 28.3 MCHC 32.1 RDW 13.5 RDW Differential 42.5 Plt Count 193 MPV 11.0 Immature Gran % (Auto) 0.200 Neut % (Auto) 91.8 H Lymph % (Auto) 4.8 L Snyder % (Auto) 3.1 Eos % (Auto) 0.0 Baso % (Auto) 0.1 Absolute Neuts (auto) 11.7 H Absolute Lymphs (auto) 0.61 L Total Counted Not Reportable PT INR APTT Sodium 138 Potassium 4.5 Chloride 95 L Carbon Dioxide 34.0 H Anion Gap 9 BUN 37 H Creatinine 1.77 H Estim Creat Clear Calc 22.37 Est GFR (MDRD) Af Amer 36 L Est GFR (MDRD) Non-Af 30 L BUN/Creatinine Ratio 20.9 H Glucose 513 H* Hemoglobin A1c Lactic Acid 4.6 H* Calcium 9.2 Magnesium Troponin I B-Natriuretic Peptide Triglycerides 62 Cholesterol 120 LDL Cholesterol 52 VLDL Cholesterol 12 HDL Cholesterol 56 Urine Color Urine Clarity Urine pH Ur Specific [place] Urine Protein Urine Glucose (UA) Urine Ketones Urine Occult Blood Urine Nitrite Urine Bilirubin Urine Urobilinogen Ur Leukocyte Esterase Urine RBC Urine WBC Ur Squamous Epith Cells Urine Bacteria Urine Mucus 03/11/18 03/11/18 04:10 04:10 WBC RBC Hgb Hct MCV MCH MCHC RDW RDW Differential Plt Count MPV Immature Gran % (Auto) Neut % (Auto) Lymph % (Auto) Snyder % (Auto) Eos % (Auto) Baso % (Auto) Absolute Neuts (auto) Absolute Lymphs (auto) Total Counted PT INR APTT > 250.0 H* Sodium Potassium Chloride Carbon Dioxide Anion Gap BUN Creatinine Estim Creat Clear Calc Est GFR (MDRD) Af Amer Est GFR (MDRD) Non-Af BUN/Creatinine Ratio Glucose Hemoglobin A1c Lactic Acid Calcium Magnesium Troponin I 7.780 H* B-Natriuretic Peptide Triglycerides Cholesterol LDL Cholesterol VLDL Cholesterol HDL Cholesterol Urine Color Urine Clarity Urine pH Ur Specific [place] Urine Protein Urine Glucose (UA) Urine Ketones Urine Occult Blood Urine Nitrite Urine Bilirubin Urine Urobilinogen Ur Leukocyte Esterase Urine RBC Urine WBC Ur Squamous Epith Cells Urine Bacteria Urine Mucus POC Glucose 03/11/18 03/11/18 03/10/18 05:49 02:01 20:28 POC Glucose 445 H > 500 H* > 500 H* 03/10/18 19:16 POC Glucose > 500 H* Clinical Impression(s) from Imaging Studies Chest X-Ray 03/10/18 16:50 IMPRESSION: Increased left hilar and parahilar markings suspicious for bronchitis or early pneumonia. Electronically Signed: Jina Michael MD at 17:22 EST Tel , Service support , Assessment/Plan Active and Suspected Problems (Last Reviewed 02/02/18 @ 14:53 by Siddharth Magana MD) Diabetes mellitus (Acute) ST segment changes on electrocardiogram (Acute) Hypertensive emergency (Acute) CHF (congestive heart failure) (Acute) Abnormal cardiac enzyme level (Acute) RECOMMENDATIONS: 1. Continue scheduled Lasix as ordered. 2. Continue 1.5 L fluid restriction 3. The patient is maintaining oxygen saturations on her baseline 3 L/min requirement. Encourage incentive spirometer use. 4. Continue nocturnal CPAP therapy per home regimen. 5. Discontinue steroids and scheduled aerosol treatments. 6. Discontinue morphine order. 7. Continue to trend troponins and await echocardiogram. IMPRESSIONS: 1. Acute on chronic hypoxemic respiratory failure Likely secondary to decompensated heart failure, coupled with uncontrolled hypertension noted on arrival to the ED. The patient has responded favorably to the use of IV diuretics. She is currently maintaining appropriate oxygen saturations on her baseline 3 L/min requirement. Given that she has no evidence of COPD or asthma on prior pulmonary function testing, scheduled bronchodilators and steroids will be discontinued. Although the patient was started on antibiotics for presumptive community-acquired pneumonia, I am less than overwhelmed by the patient's plain film chest x-ray. In addition, she denies the presence of a cough or sputum production. Therefore, I would recommend continuing the current antibiotics for an additional 24 hours, pending infectious workup. If the patient's preliminary infectious workup is negative, antibiotics will be discontinued. 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 Recommend continued optimization of the patient's volume status. Continue nocturnal CPAP therapy. 3. Decompensated heart failure with preserved ejection fraction/troponin elevation Cardiology is currently following. Continue medical management per their recommendations. The patient may require eventual cardiac catheterization. 4. Obstructive sleep apnea Continue nocturnal CPAP therapy with a pressure support of 7 cm of water with a 3 L/min supplemental oxygen bleed in, per home regimen. 5. Uncontrolled hypertension and diabetes Again, the patient presented to the hospital with a systolic blood pressure in excess of 200 mmHg. Her hemoglobin A1c is in excess of 9. It does appear that her chronic hypertension and diabetes is under poor control. Recommend continued medical optimization of the aforementioned. 6. Lactic acidemia Likely secondary to hypoxemia and increased work of breathing noted on arrival. This has improved. There is no indication to continue to check serum lactate levels. 7. Coronary artery disease status post CABG/anxiety/hyperlipidemia/GERD/obesity Complicates care, management, recovery and prognosis. Okay to continue home medications from my perspective. This note was generated with [employer] software. It may contain incorrect words, spelling, and punctuation that were not noted in checking the note before signing. Code Visit Inpatient E&M: 11156 Init Hosp L3
[2018-03-11] MEDS: Aspirin 81 MG TAB.CHEW PO (08:10)
[2018-03-11] MEDS: 0.9% NaCl Peripheral Flush Adult/Peds IV ×3 (08:11→14:06)
[2018-03-11] MEDS: Pantoprazole Sodium 40 MG Tablet PO (09:23)
[2018-03-11] MEDS: Metoprolol Tartrate 50 MG Tablet PO ×2 (09:23→21:44)
[2018-03-11] MEDS: Calcitriol 0.25 MCG Capsule PO (09:23)
[2018-03-11] MEDS: Clopidogrel Bisulfate 75 MG Tablet PO (09:23)
[2018-03-11] MEDS: Isosorbide Mononitrate 60 MG Tablet PO (09:23)
[2018-03-11] MEDS: busPIRone 5 MG Tablet PO ×2 (09:23→21:44)
[2018-03-11] MEDS: Allopurinol 100 MG Tablet PO ×2 (09:24→21:45)
[2018-03-11] MEDS: Insulin NPH Human 100 UNITS/ML PEN 45 UNITS SC (09:24)
[2018-03-11] MEDS: Ceftriaxone 1 GM/50 ML BAG IV (09:29)
[2018-03-11 09:30] LABS: Bedside Glucose 405 mg/dL (70-110)
--- NOTE | 2018-03-11 09:45 | CASEMGMT ---
RN CM Assessment Presentation: Pt presented with dyspnea chest pain, CHF and elevated troponins:7.78 peak. Wears 3L NC @ home. PCP: Dr. Lopez Specialists: Dr. Esha Ramirez Pharmacy: [facility] Insurance: [facility] Prescription Benefit: yes LNOK: Living Arrangements: Lives with and granddaughter. Pt states is able to drive, but has health issues, so granddaughter assists with needs. Pt states she was independent in ADL's prior to this illness. Did not use rollator unless was out of home and needed to ambulate longer distances. DME/HHC: Home oxygen through [facility], Cpap machine, nebulizer, rollator, cane Home Health: Has had [facility] in past. DC PLAN: undetermined.
--- NOTE | 2018-03-11 09:57 | PCM.PN.CARD ---
Subjectve: The patient states she feels better overall today. She states her breathing has improved. She has had intermittent episodes of indigestion which she describes as a burning sensation in her epigastric area and chest. Objective: Vital Signs Temp Pulse Resp BP Pulse Ox 97.9 F 67 20 H 155/82 H 96 03/11/18 08:00 03/11/18 09:23 03/11/18 08:00 03/11/18 08:00 03/11/18 08:00 Oxygen Flow Rate (L/min) 3 Oxygen Delivery Method Nasal Cannula Weight: 202 lb 9.677 oz Body Mass Index (BMI) 36.1 Finger Stick Blood Glucose 600 Intake and Output for Last 24 Hours 03/09/18 03/10/18 03/11/18 23:59 23:59 23:59 Intake Total 1321.0 / 1321.0 Output Total 2650 / 2650 Balance -1329.0 / -1329.0 General: Awake, Alert, Oriented x 3, Cooperative, Ill Appearing HEENT: Atraumatic, Normocephalic, PERRL, EOMI, Sclera Non Icteric Oral: Moist Mucosa Neck: Supple, Good ROM, No JVD Lungs: Rhonchi Cardiovascular: Regular Rhythm, Normal S1, Normal S2 Abdomen: Bowel Sounds Present, Soft, Non Tender Extremities: No edema Psych/Mental Status: Appropriate 03/10/18 16:13: WBC 15.7 H, RBC 4.89, Hgb 13.8, Hct 43.7, MCV 89.4, MCH 28.2, MCHC 31.6 L, RDW 13.3, RDW Differential 43.4, Plt Count 235, MPV 10.7, Immature Gran % (Auto) 0.300, Neut % (Auto) 89.3 H, Lymph % (Auto) 8.1 L, [place] % (Auto) 2.2, Eos % (Auto) 0.0, Baso % (Auto) 0.1, Absolute Neuts (auto) 14.1 H, Total Counted Not Reportable 03/10/18 16:13: Sodium 135 L, Potassium 4.1, Chloride 95 L, Carbon Dioxide 29.0, Anion Gap 11, BUN 32 H, Creatinine 1.74 H, Est GFR (MDRD) Af Amer 37 L, Est GFR (MDRD) Non-Af 30 L, BUN/Creatinine Ratio 18.4, Glucose 556 H*, Calcium 9.3, Troponin I 0.029 03/10/18 18:00: Lactic Acid 7.4 H* 03/10/18 18:36: B-Natriuretic Peptide 258.5 H 03/10/18 20:12: Magnesium 1.9, Troponin I 0.613 H* 03/10/18 20:12: Hemoglobin A1c 9.4 H 03/10/18 20:12: PT 14.2, INR 1.1, APTT 29.1 03/10/18 20:12: Glucose 692 H* 03/10/18 20:40: Urine Color Yellow, Urine Clarity Clear, Urine pH 6.0, Ur Specific [place] 1.010, Urine Protein Negative, Urine Glucose (UA) 1000 H, Urine Ketones Negative, Urine Occult Blood Negative, Urine Nitrite Negative, Urine Bilirubin Negative, Urine Urobilinogen Normal, Ur Leukocyte Esterase Negative, Urine RBC 0 SEEN, Urine WBC 0 SEEN 03/10/18 22:20: Troponin I 2.090 H* 03/10/18 22:20: Lactic Acid 5.8 H* 03/11/18 01:15: Troponin I 6.680 H* 03/11/18 01:15: Lactic Acid 4.6 H* 03/11/18 04:10: WBC 12.8 H, RBC 4.34, Hgb 12.3, Hct 38.3, MCV 88.2, MCH 28.3, MCHC 32.1, RDW 13.5, RDW Differential 42.5, Plt Count 193, MPV 11.0, Immature Gran % (Auto) 0.200, Neut % (Auto) 91.8 H, Lymph % (Auto) 4.8 L, [place] % (Auto) 3.1, Eos % (Auto) 0.0, Baso % (Auto) 0.1, Absolute Neuts (auto) 11.7 H, Total Counted Not Reportable 03/11/18 04:10: Sodium 138, Potassium 4.5, Chloride 95 L, Carbon Dioxide 34.0 H, Anion Gap 9, BUN 37 H, Creatinine 1.77 H, Est GFR (MDRD) Af Amer 36 L, Est GFR (MDRD) Non-Af 30 L, BUN/Creatinine Ratio 20.9 H, Glucose 513 H*, Calcium 9.2, Triglycerides 62, Cholesterol 120, LDL Cholesterol 52, VLDL Cholesterol 12, HDL Cholesterol 56 03/11/18 04:10: APTT > 250.0 H* 03/11/18 04:10: Troponin I 7.780 H* 03/11/18 07:45: Troponin I 7.090 H* Rhythm: Sinus rhythm EKG: Sinus rhythm; PSVT; nonspecific IVCD; T wave abnormality potentially compatible with myocardial ischemia-lateral ECHO: Pending CXR: Preliminary: Compared to the previous study: There appears to be an element of improvement with respect to the previous findings of increased pulmonary vascularity and/or infiltrate. Please see official report. Medical Necessity - Tobacco Use Smoking Status: Never smoker Assessment/Plan 1. Abnormal cardiac enzymes The patient does have evidence of abnormal cardiac enzymes. It is unclear whether this represents a type I acute coronary syndrome event versus a type II supply demand mismatch event secondary to the patient's underlying pulmonary disease process, etc. The present time the patient will continue to be monitored. This will include following her cardiac enzymes and her ECG. An echocardiogram can be requested and attempt to reassess her left ventricular wall motion. Based upon her symptoms and her cardiac enzyme findings and her ECG findings she will continue medical therapy/stabilization. She will then be considered for reevaluation in the cardiac catheterization laboratory. 2. CAD status post PCI status post CABG The patient has history of extensive underlying coronary artery disease as previously documented. At the moment it is unclear whether she has a type I acute coronary syndrome event versus a type II supply demand mismatch event. At the present time she will continue to be followed as noted above. She will continue medical management. As noted above she will be considered for reevaluation in the cardiac catheterization laboratory. 3. CHF: Acute systolic The patient appears to have symptoms and objective findings compatible with CHF. This may be acute systolic based upon her history. Again it is unclear whether this is related to a change in her underlying coronary or graft anatomy versus her dietary indiscretion with recent intake of sauerkraut and sausage/increased salt load producing CHF/pulmonary edema. She claims not to have missed any of her medications. At the present time she will continue in the ICU. Her respiratory status will be followed. She will continue medical management. This will include IV diuretic therapy. 4. Dyslipidemia She will continue risk factor evaluation care as tolerated. 5. Hypertensive emergency The patient's blood pressure was markedly elevated. Again it is unclear whether this is a primary event versus being secondary to her cardiopulmonary concerns with concerns of CHF and pulmonary edema as well as pneumonia. At the present time her blood pressures are being followed. She is being treated medically. 6. Pulmonary hypertension The patient has been evaluated at the [facility] [place] for pulmonary hypertension. She underwent right heart cardiac catheterization in October 2017. The summary is as noted above. She states she was told to follow with her primary serger Dr. Balbuena for further evaluation and care. 7. Diabetes mellitus She will continue evaluation care per internal medicine. 8. Pneumonia There is concern that she has an underlying pneumonia. She is being treated with antibiotic therapy. Overall, at the present time, the patient will continue to be monitored in the ICU. Comment: The patient's case has been previously discussed and reviewed with Dr. Olvera of the pulmonology/critical care staff. This note was generated using a voice recognition system and there may be incorrect words, spelling or punctuation that were not noted when reviewing the office note prior to saving.
[2018-03-11 11:13] LABS: Partial Thromboplast Time 164.1 Seconds (24.1-36.2)
--- NOTE | 2018-03-11 11:22 | PCM.PROGNOTE ---
Patient Problems: Active and Suspected Problems (Last Updated 03/12/18 @ 12:16 by Marija Alcazar) Diabetes mellitus (Acute) Hypertensive emergency (Acute) CHF (congestive heart failure) (Acute) Abnormal cardiac enzyme level (Acute) Subjective: The patient is a 77-year-old female with a past medical history of ALYCE, morbid obesity, hypothyroidism, dyslipidemia, coronary artery disease, asthma, chronic respiratory failure with hypoxemia on 3 L of nasal O2 chronically, chronic renal failure stage III, pulmonary hypertension, rheumatoid arthritis, IBS, GERD, diabetes mellitus type 2 and hypertension who presented to the emergency department at [facility] on 03/10/2018 complaining of progressively worsening dyspnea associated with a nonproductive cough. She had been placed on prednisone therapy as an outpatient but did not significantly improve. Her to presenting to the emergency room she had midsternal chest pressure associated with bilateral neck pain. She complained of orthopnea and a recent 10 pound weight gain. Vital signs in the emergency department were temperature 97.9, heart rate 125, blood pressure 201/107, respiratory rate 30 and she was 98% saturated on a nonrebreather. She was transitioned to BiPAP with some improvement. White blood cell count was elevated at 15.7. BMP showed a sodium of 135, BUN and creatinine of 32 and 1.74 respectively, glucose 556. Lactic acid was elevated at 7.4 and the troponin was 0.029. EKG showed tachycardia with inferior ST segment depression. Chest x-ray showed increased left hilar and perihilar markings suspicious for early pneumonia. She was treated with aspirin, aerosolized bronchodilators, Rocephin and azithromycin in the emergency department and also received Lasix 40 mg IV. She was admitted to the intensive care unit. The second troponin was 2.[address] Feng was consulted. He recommended continuing medical management with aspirin, Plavix, nitrates, beta-blockers, lipid-lowering agents, intravenous diuretics and anticoagulants. She was placed on a heparin infusion. All events of the past 24 hours of been reviewed. T-max 99.5 Blood pressure has improved and is currently 143/69 with a heart rate of 67. She is 97% saturated on 3 L nasal cannula. Fluid balance for the past 24 hours is -1329. Troponin continues to increase and at 7:00 this morning was 7.09. Lipid panel shows an LDL of 52 with an HDL of 56. Blood sugars are very uncontrolled. Respiratory panel was negative. Legionella and streptococcal antigens in the urine are negative. No sputum has been produced yet. Repeat chest x-ray shows an elevated right hemidiaphragm with infiltrate versus effusion in the right costophrenic angle and increased pulmonary vascular congestion. Denies chest pain today. States her breathing is somewhat better. Denies palpitations. Cough is much improved and she has never produced any sputum. Since the last time I took care of her in the hospital she did follow-up with pulmonary and now has CPAP which she wears all the time when sleeping. She told me she saw Dr. Feng this a.m. and he is planning on doing cardiac catheterization in the a.m. - Physical Exam General: Alert, Oriented x3, Cooperative, No apparent distress, Well developed, Well nourished HEENT: Atraumatic, PERRLA, EOMI, Normocephalic Oral: Moist Mucosa Neck: Supple, Trachea Midline Lungs: Diminished, Rales, Wheezes - rare expiratory Cardiovascular: Regular rate, Regular Rhythm, Normal S1, Normal S2, No murmurs, No rub noted, No Gallop Abdomen: Bowel Sounds Present, Soft, Non Tender, Non-Distended, Obese Extremities: No clubbing, Edema - mild Skin: No rashes, No breakdown, - Neurological: Cranial nerves II-XII grossly intact, Neuro grossly intact, - - she has chronic pain in the LE's BL in a stocking type distribution due to diabetic neuropathy Psych/Mental Status: Normal Affect, Appropriate Vital Signs Temp Pulse Resp BP Pulse Ox 98.2 F 67 17 143/69 H 97 03/11/18 10:00 03/11/18 11:00 03/11/18 11:00 03/11/18 11:00 03/11/18 11:00 Oxygen Flow Rate (L/min) 3 Oxygen Delivery Method Nasal Cannula Weight: 202 lb 9.677 oz Body Mass Index (BMI) 36.1 Finger Stick Blood Glucose 600 Intake and Output for Last 24 Hours 03/09/18 03/10/18 03/11/18 23:59 23:59 23:59 Intake Total 1321.0 / 1321.0 Output Total 2650 / 2650 Balance -1329.0 / -1329.0 Microbiology Past 72 Hours 03/10/18 20:40 Legionella Antigen - Final Urine Catheter - Catheter Streptococcus pneumoniae Antigen (M - Final 03/10/18 19:25 Respiratory Panel (PCR) - Final Mucosa - Nasopharyngeal Laboratory Tests Past 24 Hrs 03/10/18 03/10/18 03/10/18 16:13 16:13 18:00 WBC 15.7 H RBC 4.89 Hgb 13.8 Hct 43.7 MCV 89.4 MCH 28.2 MCHC 31.6 L RDW 13.3 RDW Differential 43.4 Plt Count 235 MPV 10.7 Immature Gran % (Auto) 0.300 Neut % (Auto) 89.3 H Lymph % (Auto) 8.1 L [place] % (Auto) 2.2 Eos % (Auto) 0.0 Baso % (Auto) 0.1 Absolute Neuts (auto) 14.1 H Absolute Lymphs (auto) 1.28 Total Counted Not Reportable PT INR APTT Sodium 135 L Potassium 4.1 Chloride 95 L Carbon Dioxide 29.0 Anion Gap 11 BUN 32 H Creatinine 1.74 H Estim Creat Clear Calc 22.75 Est GFR (MDRD) Af Amer 37 L Est GFR (MDRD) Non-Af 30 L BUN/Creatinine Ratio 18.4 Glucose 556 H* Hemoglobin A1c Lactic Acid 7.4 H* Calcium 9.3 Magnesium Troponin I 0.029 B-Natriuretic Peptide Triglycerides Cholesterol LDL Cholesterol VLDL Cholesterol HDL Cholesterol Urine Color Urine Clarity Urine pH Ur Specific [place] Urine Protein Urine Glucose (UA) Urine Ketones Urine Occult Blood Urine Nitrite Urine Bilirubin Urine Urobilinogen Ur Leukocyte Esterase Urine RBC Urine WBC Ur Squamous Epith Cells Urine Bacteria Urine Mucus 03/10/18 03/10/18 03/10/18 18:36 20:12 20:12 WBC RBC Hgb Hct MCV MCH MCHC RDW RDW Differential Plt Count MPV Immature Gran % (Auto) Neut % (Auto) Lymph % (Auto) [place] % (Auto) Eos % (Auto) Baso % (Auto) Absolute Neuts (auto) Absolute Lymphs (auto) Total Counted PT INR APTT Sodium Potassium Chloride Carbon Dioxide Anion Gap BUN Creatinine Estim Creat Clear Calc Est GFR (MDRD) Af Amer Est GFR (MDRD) Non-Af BUN/Creatinine Ratio Glucose Hemoglobin A1c 9.4 H Lactic Acid Calcium Magnesium 1.9 Troponin I 0.613 H* B-Natriuretic Peptide 258.5 H Triglycerides Cholesterol LDL Cholesterol VLDL Cholesterol HDL Cholesterol Urine Color Urine Clarity Urine pH Ur Specific [place] Urine Protein Urine Glucose (UA) Urine Ketones Urine Occult Blood Urine Nitrite Urine Bilirubin Urine Urobilinogen Ur Leukocyte Esterase Urine RBC Urine WBC Ur Squamous Epith Cells Urine Bacteria Urine Mucus 03/10/18 03/10/18 03/10/18 20:12 20:12 20:40 WBC RBC Hgb Hct MCV MCH MCHC RDW RDW Differential Plt Count MPV Immature Gran % (Auto) Neut % (Auto) Lymph % (Auto) [place] % (Auto) Eos % (Auto) Baso % (Auto) Absolute Neuts (auto) Absolute Lymphs (auto) Total Counted PT 14.2 INR 1.1 APTT 29.1 Sodium Potassium Chloride Carbon Dioxide Anion Gap BUN Creatinine Estim Creat Clear Calc Est GFR (MDRD) Af Amer Est GFR (MDRD) Non-Af BUN/Creatinine Ratio Glucose 692 H* Hemoglobin A1c Lactic Acid Calcium Magnesium Troponin I B-Natriuretic Peptide Triglycerides Cholesterol LDL Cholesterol VLDL Cholesterol HDL Cholesterol Urine Color Yellow Urine Clarity Clear Urine pH 6.0 Ur Specific [place] 1.010 Urine Protein Negative Urine Glucose (UA) 1000 H Urine Ketones Negative Urine Occult Blood Negative Urine Nitrite Negative Urine Bilirubin Negative Urine Urobilinogen Normal Ur Leukocyte Esterase Negative Urine RBC 0 SEEN Urine WBC 0 SEEN Ur Squamous Epith Cells 0 SEEN Urine Bacteria 0 SEEN Urine Mucus 0 SEEN 03/10/18 03/10/18 03/11/18 22:20 22:20 01:15 WBC RBC Hgb Hct MCV MCH MCHC RDW RDW Differential Plt Count MPV Immature Gran % (Auto) Neut % (Auto) Lymph % (Auto) [place] % (Auto) Eos % (Auto) Baso % (Auto) Absolute Neuts (auto) Absolute Lymphs (auto) Total Counted PT INR APTT Sodium Potassium Chloride Carbon Dioxide Anion Gap BUN Creatinine Estim Creat Clear Calc Est GFR (MDRD) Af Amer Est GFR (MDRD) Non-Af BUN/Creatinine Ratio Glucose Hemoglobin A1c Lactic Acid 5.8 H* Calcium Magnesium Troponin I 2.090 H* 6.680 H* B-Natriuretic Peptide Triglycerides Cholesterol LDL Cholesterol VLDL Cholesterol HDL Cholesterol Urine Color Urine Clarity Urine pH Ur Specific [place] Urine Protein Urine Glucose (UA) Urine Ketones Urine Occult Blood Urine Nitrite Urine Bilirubin Urine Urobilinogen Ur Leukocyte Esterase Urine RBC Urine WBC Ur Squamous Epith Cells Urine Bacteria Urine Mucus 03/11/18 03/11/18 03/11/18 01:15 04:10 04:10 WBC 12.8 H RBC 4.34 Hgb 12.3 Hct 38.3 MCV 88.2 MCH 28.3 MCHC 32.1 RDW 13.5 RDW Differential 42.5 Plt Count 193 MPV 11.0 Immature Gran % (Auto) 0.200 Neut % (Auto) 91.8 H Lymph % (Auto) 4.8 L [place] % (Auto) 3.1 Eos % (Auto) 0.0 Baso % (Auto) 0.1 Absolute Neuts (auto) 11.7 H Absolute Lymphs (auto) 0.61 L Total Counted Not Reportable PT INR APTT Sodium 138 Potassium 4.5 Chloride 95 L Carbon Dioxide 34.0 H Anion Gap 9 BUN 37 H Creatinine 1.77 H Estim Creat Clear Calc 22.37 Est GFR (MDRD) Af Amer 36 L Est GFR (MDRD) Non-Af 30 L BUN/Creatinine Ratio 20.9 H Glucose 513 H* Hemoglobin A1c Lactic Acid 4.6 H* Calcium 9.2 Magnesium Troponin I B-Natriuretic Peptide Triglycerides 62 Cholesterol 120 LDL Cholesterol 52 VLDL Cholesterol 12 HDL Cholesterol 56 Urine Color Urine Clarity Urine pH Ur Specific [place] Urine Protein Urine Glucose (UA) Urine Ketones Urine Occult Blood Urine Nitrite Urine Bilirubin Urine Urobilinogen Ur Leukocyte Esterase Urine RBC Urine WBC Ur Squamous Epith Cells Urine Bacteria Urine Mucus 03/11/18 03/11/18 03/11/18 04:10 04:10 07:45 WBC RBC Hgb Hct MCV MCH MCHC RDW RDW Differential Plt Count MPV Immature Gran % (Auto) Neut % (Auto) Lymph % (Auto) [place] % (Auto) Eos % (Auto) Baso % (Auto) Absolute Neuts (auto) Absolute Lymphs (auto) Total Counted PT INR APTT > 250.0 H* Sodium Potassium Chloride Carbon Dioxide Anion Gap BUN Creatinine Estim Creat Clear Calc Est GFR (MDRD) Af Amer Est GFR (MDRD) Non-Af BUN/Creatinine Ratio Glucose Hemoglobin A1c Lactic Acid Calcium Magnesium Troponin I 7.780 H* 7.090 H* B-Natriuretic Peptide Triglycerides Cholesterol LDL Cholesterol VLDL Cholesterol HDL Cholesterol Urine Color Urine Clarity Urine pH Ur Specific [place] Urine Protein Urine Glucose (UA) Urine Ketones Urine Occult Blood Urine Nitrite Urine Bilirubin Urine Urobilinogen Ur Leukocyte Esterase Urine RBC Urine WBC Ur Squamous Epith Cells Urine Bacteria Urine Mucus 03/11/18 10:38 WBC RBC Hgb Hct MCV MCH MCHC RDW RDW Differential Plt Count MPV Immature Gran % (Auto) Neut % (Auto) Lymph % (Auto) [place] % (Auto) Eos % (Auto) Baso % (Auto) Absolute Neuts (auto) Absolute Lymphs (auto) Total Counted PT INR APTT 164.1 H* Sodium Potassium Chloride Carbon Dioxide Anion Gap BUN Creatinine Estim Creat Clear Calc Est GFR (MDRD) Af Amer Est GFR (MDRD) Non-Af BUN/Creatinine Ratio Glucose Hemoglobin A1c Lactic Acid Calcium Magnesium Troponin I B-Natriuretic Peptide Triglycerides Cholesterol LDL Cholesterol VLDL Cholesterol HDL Cholesterol Urine Color Urine Clarity Urine pH Ur Specific [place] Urine Protein Urine Glucose (UA) Urine Ketones Urine Occult Blood Urine Nitrite Urine Bilirubin Urine Urobilinogen Ur Leukocyte Esterase Urine RBC Urine WBC Ur Squamous Epith Cells Urine Bacteria Urine Mucus POC Glucose 03/11/18 03/11/18 03/11/18 08:07 05:49 02:01 POC Glucose 405 H 445 H > 500 H* 03/10/18 03/10/18 20:28 19:16 POC Glucose > 500 H* > 500 H* Medical Necessity - Tobacco Use Smoking Status: Never smoker Assessment/Plan All Active Problems (Last Updated 03/12/18 @ 12:16 by Marija Alcazar) NSTEMI (non-ST elevated myocardial infarction) (Acute 03/12/18) Diabetes mellitus (Acute) Hypertensive emergency (Acute) CHF (congestive heart failure) (Acute) Abnormal cardiac enzyme level (Acute) History of non-ST elevation myocardial infarction (NSTEMI) (Acute) RSV infection (Acute) Community acquired pneumonia (Acute) Hypercapnia (Acute) Acute respiratory failure with hypoxia (Ruled-out) Asthma with acute exacerbation (Acute) Impressions 1. Acute congestive heart failure 2. Non-ST elevation [place]-type I 3. Coronary artery disease with history of CABG and stents 4. ALYCE -compliant with CPAP 5. Morbid obesity 6. Hypothyroidism 7. Dyslipidemia 8. Asthma 9. Chronic respiratory failure with hypoxemia on 3 L of nasal O2 chronically, 10. Chronic renal failure stage III 11. Pulmonary hypertension 12. Rheumatoid arthritis 13. Irritable bowel syndrome 14. GERD 15. Diabetes mellitus type 2-uncontrolled with a hemoglobin A1c of 9.4 16. Hypertension-not adequately controlled 17. Diabetic peripheral polyneuropathy Add Amlodipine for better BP control Start Neurontin 100 BID and 200 at HS cardiac cath tomorrow Continue the Lasix recheck the lab in the AM Adjust the insulin Code Visit Inpatient E&M: 13659 Subs Hosp L3
[2018-03-11] MEDS: CHLORHEXIDINE GLUC 2% CLOTH 1 EACH TOWELETTE TOPICAL (11:54)
[2018-03-11 12:01] LABS: Bedside Glucose > 500 mg/dL (70-110)
[2018-03-11] MEDS: amLODIPine 2.5 MG Tablet PO (12:05)
[2018-03-11 12:46] LABS: AST(SGOT) 43 U/L (15-37); Alanine Aminotransfer ALT/SGPT 28 U/L (13-56); Albumin, Serum 3.2 g/dL (3.2-5.0); Alkaline Phosphatase 108 U/L (45-117); Bilirubin, Direct 0.12 mg/dL (0.00-0.30); Globulin 3.9 g/dL (2.2-4.2); Protein, Total 7.1 g/dL (6.4-8.2)
[2018-03-11 13:51] LABS: Bedside Glucose > 500 mg/dL (70-110)
--- NOTE | 2018-03-11 14:11 | CHAPLAIN ---
Type of Pastoral Visit _x__ Initial Visit ___ Follow-up Visit ___ On-call Visit ___ General Patient Visit ___ Spiritual Assessment ___ Family Conference ___ Bereavement ___ Rapid Response ___ Code Blue ___ Other (describe below) Pastoral Care Referral From _x__ Patient ___ Family ___ Nurse ___ Physician ___ Asset Management Lead ___ Office Manager Receptionist ___ Other (describe below) Sacrament/Intervention _x__ Active listening ___ Anointing ___ Orthodoxy ___ Bereavement ___ Communion ___ Nga exploration ___ ___ Life review _x__ Prayer ___ Reconciliation ___ Sacrament of Sick _x__ Supportive presence ___ Wedding ___ Other (describe below) Pastoral Comments
[2018-03-11] MEDS: Gabapentin 100 MG Capsule PO (14:54)
[2018-03-11 14:56] LABS: Bedside Glucose > 500 mg/dL (70-110)
[2018-03-11 16:01] LABS: Bedside Glucose 473 mg/dL (70-110)
[2018-03-11 17:05] LABS: Bedside Glucose 434 mg/dL (70-110)
[2018-03-11 17:36] LABS: Partial Thromboplast Time 59.5 Seconds (24.1-36.2)
[2018-03-11 18:05] LABS: Bedside Glucose 413 mg/dL (70-110)
[2018-03-11 19:00] LABS: Bedside Glucose 434 mg/dL (70-110)
[2018-03-11 20:05] LABS: Bedside Glucose 391 mg/dL (70-110)
[2018-03-11 21:11] LABS: Bedside Glucose 347 mg/dL (70-110)
[2018-03-11] MEDS: Gabapentin 100 MG Capsule 200 MG PO (21:44)
[2018-03-11] MEDS: Pravastatin 80 MG Tablet PO (21:44)
[2018-03-11] MEDS: HEPARIN/D5w 25,000 UNITS 25,000 UNITS/250 ML IV.SOLN. 14 UNITS IV (21:45)
[2018-03-11 22:10] LABS: Bedside Glucose 287 mg/dL (70-110)
[2018-03-11 23:00] LABS: Bedside Glucose 277 mg/dL (70-110)
[2018-03-12] VITALS (29 sets, daily range): BP systolic 107–160; BP diastolic 49–102; PULSE 49–77; RESP 14–28; TEMP 36.4–38.3; O2SAT 88–100
[2018-03-12 00:06] LABS: Bedside Glucose 251 mg/dL (70-110)
[2018-03-12 00:11] LABS: Partial Thromboplast Time 51.8 Seconds (24.1-36.2)
[2018-03-12] MEDS: Heparin Injection (Vial) 5,000 UNIT/ML VIAL IV (00:21)
[2018-03-12] MEDS: MELATONIN 10 MG TABLET 5 MG PO ×2 (00:51→22:04)
[2018-03-12 01:06] LABS: Bedside Glucose 249 mg/dL (70-110)
[2018-03-12 01:34] LABS: Anion Gap 9 (5-15); BUN 44 mg/dL (7-18); BUN/Creat Ratio 24.7 RATIO (10-20); Calcium,Total 9.4 mg/dL (8.5-10.1); Chloride 95 mmol/L (98-107); Creatinine, Serum 1.78 mg/dL (0.55-1.02); EST Glomerular Filtration Rate 29 mL/min (>60); Est Glom Filt Rate - Afr Amer 36 mL/min (>60); Estimated Creatinine Clearance 22.24 ml/min; Glucose 253 mg/dL (74-106); Potassium 3.8 mmol/L (3.5-5.1); Sodium Level 139 mmol/L (136-145)
[2018-03-12 02:31] LABS: Bedside Glucose 241 mg/dL (70-110)
[2018-03-12 03:11] LABS: Bedside Glucose 233 mg/dL (70-110)
[2018-03-12 04:11] LABS: Bedside Glucose 246 mg/dL (70-110)
[2018-03-12 05:21] LABS: Bedside Glucose 203 mg/dL (70-110)
[2018-03-12 05:30] LABS: Absolute Neutrophil Count 12.1 X10^3/uL (2.0-7.7); Basophil# 0.02 X10^3/uL; Basophil% 0.1 % (0-1); Eosinophil# 0.02 X10^3/uL; Eosinophils% 0.1 % (0-5); Hematocrit 37.8 % (37-47); Mean Corp Hgb Conc 31.7 g/gl (32-36); Mean Corpuscular Hgb 28.1 pg (27.0-32.0); Mean Corpuscular Volume 88.5 fL (81-99); Mean Platelet Vol. 10.9 fl (6.2-12.0); Monocyte# 1.43 X10^3/uL; Monocyte% 8.9 % (0-10); Neutrophil # 12.06 X10^3/uL (2.7-7.7); Neutrophil % 75.3 % (47-70); POSITIVE COUNT NO; POSITIVE DIFFERENTIAL NO; POSITIVE MORPHOLOGY NO; Platelet Count 186 K/mm3 (150-450); RBC Distribution Width CV 13.5 % (11.6-14.6); Red Blood Count 4.27 M/mm3 (4.2-5.4)
[2018-03-12] MEDS: Aspirin 81 MG TAB.CHEW PO (05:36)
[2018-03-12] MEDS: amLODIPine 2.5 MG Tablet PO ×2 (05:37→17:42)
[2018-03-12] MEDS: Clopidogrel Bisulfate 75 MG Tablet PO (05:38)
[2018-03-12] MEDS: CHLORHEXIDINE GLUC 2% CLOTH 1 EACH TOWELETTE TOPICAL (05:39)
[2018-03-12 05:46] LABS: Anion Gap 9 (5-15); BUN 50 mg/dL (7-18); BUN/Creat Ratio 29.2 RATIO (10-20); Calcium,Total 9.2 mg/dL (8.5-10.1); Chloride 96 mmol/L (98-107); Creatinine, Serum 1.71 mg/dL (0.55-1.02); EST Glomerular Filtration Rate 31 mL/min (>60); Est Glom Filt Rate - Afr Amer 37 mL/min (>60); Estimated Creatinine Clearance 23.15 ml/min; Glucose 227 mg/dL (74-106); Magnesium 2.2 mg/dL (1.6-2.6); Potassium 3.7 mmol/L (3.5-5.1); Sodium Level 142 mmol/L (136-145)
[2018-03-12] MEDS: 0.9% NaCl Peripheral Flush Adult/Peds IV (05:48)
--- NOTE | 2018-03-12 05:55 | EKG12_ITS ---
Test Reason : AM EKG Blood Pressure : / mmHG Vent. Rate : 054 BPM Atrial Rate : 054 BPM P-R Int : 120 ms QRS Dur : 120 ms QT Int : 470 ms P-R-T Axes : 000 001 172 degrees QTc Int : 445 ms Sinus bradycardia with sinus arrhythmia Nonspecific intraventricular conduction delay Abnormal ECG Confirmed by RENETTA CURRY, ROSSY ([id number]), design editor KARSON FARRELL ([id number] on 03/18/2018 11:11:09 AM Referred By: MATT Confirmed By:ROSSY JACKSON MD
[2018-03-12 05:56] LABS: Bedside Glucose 202 mg/dL (70-110)
[2018-03-12 06:03] LABS: Phosphorus 5.4 mg/dL (2.5-4.9)
[2018-03-12 06:07] LABS: Prothrombin Time (Protime)PT. 13.6 SECONDS (11.7-14.9)
[2018-03-12 06:08] LABS: Partial Thromboplast Time 28.6 Seconds (24.1-36.2)
[2018-03-12 07:05] LABS: Bedside Glucose 169 mg/dL (70-110)
--- NOTE | 2018-03-12 07:10 | NURSING ---
pt to hot plate [employer] press laborer w/ hot plate [employer] press laborer RN
--- NOTE | 2018-03-12 07:40 | PN_ITS ---
Subjective: The patient was seen and examined at the bedside this morning. Events from the last 24 hours have been reviewed. The patient is currently afebrile, hemodynamically stable and maintaining appropriate oxygen saturations on her baseline 3 L/min requirement. The patient is currently overall net -1.5 L for the admission. She is currently scheduled to undergo cardiac catheterization this morning. She has been on an insulin drip since yesterday with improved blood glucose levels noted. Objective: The patient's most recent lab work, culture data and imaging studies have all been personally reviewed. Surface echocardiogram revealed a mildly dilated LV with segmental dysfunction. Ejection fraction was 55%. Right ventricular systolic pressure was unable to be estimated. Respiratory viral panel was negative. Strep and urine Legionella antigens were both negative. Blood and urine cultures are pending. General: Alert, Cooperative, No apparent distress HEENT: Atraumatic, PERRLA, Normocephalic Oral: No Gingival or Mucosal Lesions/ Ulcerations Neck: Supple, No Nodes, Trachea Midline Lungs: No rhonchi, No wheeze, No rales, Diminished Cardiovascular: Regular rate, Regular Rhythm, Normal S1, Normal S2, No murmurs Abdomen: Bowel Sounds Present, Soft, Non Tender, Obese Extremities: No clubbing, No cyanosis, No edema Skin: No breakdown Musculoskeletal: No Tenderness to Palpation of Joints or Extremities, No Muscle Wasting Lymphatic: No Cervical, Supraclavicular, or Inguinal Adenopathy Neurological: Cranial nerves II-XII grossly intact, Neuro grossly intact Psych/Mental Status: Normal Affect, Appropriate Vital Signs Temp Pulse Resp BP Pulse Ox 36.8 C 53 L 21 H 145/73 H 98 03/12/18 04:00 03/12/18 06:00 03/12/18 06:00 03/12/18 06:00 03/12/18 06:00 Oxygen Flow Rate (L/min) 3 Oxygen Delivery Method Nasal Cannula Weight: 202 lb 2.622 oz Body Mass Index (BMI) 36.1 Finger Stick Blood Glucose 169 Intake and Output for Last 24 Hours 03/10/18 03/11/18 03/12/18 23:59 23:59 23:59 Intake Total 3031.0 / 3031.0 458 / 458 Output Total 4175 / 4175 900 / 900 Balance -1144.0 / -1144.0 -442 / -442 Labs (Last 48 Hours) 03/10/18 03/10/18 03/10/18 16:13 16:13 18:00 WBC 15.7 H RBC 4.89 Hgb 13.8 Hct 43.7 MCV 89.4 MCH 28.2 MCHC 31.6 L RDW 13.3 RDW Differential 43.4 Plt Count 235 MPV 10.7 Immature Gran % (Auto) 0.300 Neut % (Auto) 89.3 H Lymph % (Auto) 8.1 L [place] % (Auto) 2.2 Eos % (Auto) 0.0 Baso % (Auto) 0.1 Absolute Neuts (auto) 14.1 H Absolute Lymphs (auto) 1.28 Total Counted Not Reportable PT INR APTT Sodium 135 L Potassium 4.1 Chloride 95 L Carbon Dioxide 29.0 Anion Gap 11 BUN 32 H Creatinine 1.74 H Estim Creat Clear Calc 22.75 Est GFR (MDRD) Af Amer 37 L Est GFR (MDRD) Non-Af 30 L BUN/Creatinine Ratio 18.4 Glucose 556 H* Hemoglobin A1c Lactic Acid 7.4 H* Calcium 9.3 Phosphorus Magnesium Total Bilirubin Direct Bilirubin AST ALT Alkaline Phosphatase Troponin I 0.029 B-Natriuretic Peptide Total Protein Albumin Globulin Triglycerides Cholesterol LDL Cholesterol VLDL Cholesterol HDL Cholesterol Urine Color Urine Clarity Urine pH Ur Specific [place] Urine Protein Urine Glucose (UA) Urine Ketones Urine Occult Blood Urine Nitrite Urine Bilirubin Urine Urobilinogen Ur Leukocyte Esterase Urine RBC Urine WBC Ur Squamous Epith Cells Urine Bacteria Urine Mucus POC Glucose 03/10/18 03/10/18 03/10/18 18:36 19:16 20:12 WBC RBC Hgb Hct MCV MCH MCHC RDW RDW Differential Plt Count MPV Immature Gran % (Auto) Neut % (Auto) Lymph % (Auto) [place] % (Auto) Eos % (Auto) Baso % (Auto) Absolute Neuts (auto) Absolute Lymphs (auto) Total Counted PT INR APTT Sodium Potassium Chloride Carbon Dioxide Anion Gap BUN Creatinine Estim Creat Clear Calc Est GFR (MDRD) Af Amer Est GFR (MDRD) Non-Af BUN/Creatinine Ratio Glucose Hemoglobin A1c Lactic Acid Calcium Phosphorus Magnesium 1.9 Total Bilirubin Direct Bilirubin AST ALT Alkaline Phosphatase Troponin I 0.613 H* B-Natriuretic Peptide 258.5 H Total Protein Albumin Globulin Triglycerides Cholesterol LDL Cholesterol VLDL Cholesterol HDL Cholesterol Urine Color Urine Clarity Urine pH Ur Specific [place] Urine Protein Urine Glucose (UA) Urine Ketones Urine Occult Blood Urine Nitrite Urine Bilirubin Urine Urobilinogen Ur Leukocyte Esterase Urine RBC Urine WBC Ur Squamous Epith Cells Urine Bacteria Urine Mucus POC Glucose > 500 H* 03/10/18 03/10/18 03/10/18 20:12 20:12 20:12 WBC RBC Hgb Hct MCV MCH MCHC RDW RDW Differential Plt Count MPV Immature Gran % (Auto) Neut % (Auto) Lymph % (Auto) [place] % (Auto) Eos % (Auto) Baso % (Auto) Absolute Neuts (auto) Absolute Lymphs (auto) Total Counted PT 14.2 INR 1.1 APTT 29.1 Sodium Potassium Chloride Carbon Dioxide Anion Gap BUN Creatinine Estim Creat Clear Calc Est GFR (MDRD) Af Amer Est GFR (MDRD) Non-Af BUN/Creatinine Ratio Glucose 692 H* Hemoglobin A1c 9.4 H Lactic Acid Calcium Phosphorus Magnesium Total Bilirubin Direct Bilirubin AST ALT Alkaline Phosphatase Troponin I B-Natriuretic Peptide Total Protein Albumin Globulin Triglycerides Cholesterol LDL Cholesterol VLDL Cholesterol HDL Cholesterol Urine Color Urine Clarity Urine pH Ur Specific [place] Urine Protein Urine Glucose (UA) Urine Ketones Urine Occult Blood Urine Nitrite Urine Bilirubin Urine Urobilinogen Ur Leukocyte Esterase Urine RBC Urine WBC Ur Squamous Epith Cells Urine Bacteria Urine Mucus POC Glucose 03/10/18 03/10/18 03/10/18 20:28 20:40 22:20 WBC RBC Hgb Hct MCV MCH MCHC RDW RDW Differential Plt Count MPV Immature Gran % (Auto) Neut % (Auto) Lymph % (Auto) [place] % (Auto) Eos % (Auto) Baso % (Auto) Absolute Neuts (auto) Absolute Lymphs (auto) Total Counted PT INR APTT Sodium Potassium Chloride Carbon Dioxide Anion Gap BUN Creatinine Estim Creat Clear Calc Est GFR (MDRD) Af Amer Est GFR (MDRD) Non-Af BUN/Creatinine Ratio Glucose Hemoglobin A1c Lactic Acid Calcium Phosphorus Magnesium Total Bilirubin Direct Bilirubin AST ALT Alkaline Phosphatase Troponin I 2.090 H* B-Natriuretic Peptide Total Protein Albumin Globulin Triglycerides Cholesterol LDL Cholesterol VLDL Cholesterol HDL Cholesterol Urine Color Yellow Urine Clarity Clear Urine pH 6.0 Ur Specific [place] 1.010 Urine Protein Negative Urine Glucose (UA) 1000 H Urine Ketones Negative Urine Occult Blood Negative Urine Nitrite Negative Urine Bilirubin Negative Urine Urobilinogen Normal Ur Leukocyte Esterase Negative Urine RBC 0 SEEN Urine WBC 0 SEEN Ur Squamous Epith Cells 0 SEEN Urine Bacteria 0 SEEN Urine Mucus 0 SEEN POC Glucose > 500 H* 03/10/18 03/11/18 03/11/18 22:20 01:15 01:15 WBC RBC Hgb Hct MCV MCH MCHC RDW RDW Differential Plt Count MPV Immature Gran % (Auto) Neut % (Auto) Lymph % (Auto) [place] % (Auto) Eos % (Auto) Baso % (Auto) Absolute Neuts (auto) Absolute Lymphs (auto) Total Counted PT INR APTT Sodium Potassium Chloride Carbon Dioxide Anion Gap BUN Creatinine Estim Creat Clear Calc Est GFR (MDRD) Af Amer Est GFR (MDRD) Non-Af BUN/Creatinine Ratio Glucose Hemoglobin A1c Lactic Acid 5.8 H* 4.6 H* Calcium Phosphorus Magnesium Total Bilirubin Direct Bilirubin AST ALT Alkaline Phosphatase Troponin I 6.680 H* B-Natriuretic Peptide Total Protein Albumin Globulin Triglycerides Cholesterol LDL Cholesterol VLDL Cholesterol HDL Cholesterol Urine Color Urine Clarity Urine pH Ur Specific [place] Urine Protein Urine Glucose (UA) Urine Ketones Urine Occult Blood Urine Nitrite Urine Bilirubin Urine Urobilinogen Ur Leukocyte Esterase Urine RBC Urine WBC Ur Squamous Epith Cells Urine Bacteria Urine Mucus POC Glucose 03/11/18 03/11/18 03/11/18 02:01 04:10 04:10 WBC 12.8 H RBC 4.34 Hgb 12.3 Hct 38.3 MCV 88.2 MCH 28.3 MCHC 32.1 RDW 13.5 RDW Differential 42.5 Plt Count 193 MPV 11.0 Immature Gran % (Auto) 0.200 Neut % (Auto) 91.8 H Lymph % (Auto) 4.8 L [place] % (Auto) 3.1 Eos % (Auto) 0.0 Baso % (Auto) 0.1 Absolute Neuts (auto) 11.7 H Absolute Lymphs (auto) 0.61 L Total Counted Not Reportable PT INR APTT Sodium 138 Potassium 4.5 Chloride 95 L Carbon Dioxide 34.0 H Anion Gap 9 BUN 37 H Creatinine 1.77 H Estim Creat Clear Calc 22.37 Est GFR (MDRD) Af Amer 36 L Est GFR (MDRD) Non-Af 30 L BUN/Creatinine Ratio 20.9 H Glucose 513 H* Hemoglobin A1c Lactic Acid Calcium 9.2 Phosphorus Magnesium Total Bilirubin Direct Bilirubin AST ALT Alkaline Phosphatase Troponin I B-Natriuretic Peptide Total Protein Albumin Globulin Triglycerides 62 Cholesterol 120 LDL Cholesterol 52 VLDL Cholesterol 12 HDL Cholesterol 56 Urine Color Urine Clarity Urine pH Ur Specific [place] Urine Protein Urine Glucose (UA) Urine Ketones Urine Occult Blood Urine Nitrite Urine Bilirubin Urine Urobilinogen Ur Leukocyte Esterase Urine RBC Urine WBC Ur Squamous Epith Cells Urine Bacteria Urine Mucus POC Glucose > 500 H* 03/11/18 03/11/18 03/11/18 04:10 04:10 04:10 WBC RBC Hgb Hct MCV MCH MCHC RDW RDW Differential Plt Count MPV Immature Gran % (Auto) Neut % (Auto) Lymph % (Auto) [place] % (Auto) Eos % (Auto) Baso % (Auto) Absolute Neuts (auto) Absolute Lymphs (auto) Total Counted PT INR APTT > 250.0 H* Sodium Potassium Chloride Carbon Dioxide Anion Gap BUN Creatinine Estim Creat Clear Calc Est GFR (MDRD) Af Amer Est GFR (MDRD) Non-Af BUN/Creatinine Ratio Glucose Hemoglobin A1c Lactic Acid Calcium Phosphorus Magnesium Total Bilirubin 0.20 Direct Bilirubin 0.12 AST 43 H ALT 28 Alkaline Phosphatase 108 Troponin I 7.780 H* B-Natriuretic Peptide Total Protein 7.1 Albumin 3.2 Globulin 3.9 Triglycerides Cholesterol LDL Cholesterol VLDL Cholesterol HDL Cholesterol Urine Color Urine Clarity Urine pH Ur Specific [place] Urine Protein Urine Glucose (UA) Urine Ketones Urine Occult Blood Urine Nitrite Urine Bilirubin Urine Urobilinogen Ur Leukocyte Esterase Urine RBC Urine WBC Ur Squamous Epith Cells Urine Bacteria Urine Mucus POC Glucose 03/11/18 03/11/18 03/11/18 05:49 07:45 08:07 WBC RBC Hgb Hct MCV MCH MCHC RDW RDW Differential Plt Count MPV Immature Gran % (Auto) Neut % (Auto) Lymph % (Auto) [place] % (Auto) Eos % (Auto) Baso % (Auto) Absolute Neuts (auto) Absolute Lymphs (auto) Total Counted PT INR APTT Sodium Potassium Chloride Carbon Dioxide Anion Gap BUN Creatinine Estim Creat Clear Calc Est GFR (MDRD) Af Amer Est GFR (MDRD) Non-Af BUN/Creatinine Ratio Glucose Hemoglobin A1c Lactic Acid Calcium Phosphorus Magnesium Total Bilirubin Direct Bilirubin AST ALT Alkaline Phosphatase Troponin I 7.090 H* B-Natriuretic Peptide Total Protein Albumin Globulin Triglycerides Cholesterol LDL Cholesterol VLDL Cholesterol HDL Cholesterol Urine Color Urine Clarity Urine pH Ur Specific [place] Urine Protein Urine Glucose (UA) Urine Ketones Urine Occult Blood Urine Nitrite Urine Bilirubin Urine Urobilinogen Ur Leukocyte Esterase Urine RBC Urine WBC Ur Squamous Epith Cells Urine Bacteria Urine Mucus POC Glucose 445 H 405 H 03/11/18 03/11/18 03/11/18 10:38 11:53 13:46 WBC RBC Hgb Hct MCV MCH MCHC RDW RDW Differential Plt Count MPV Immature Gran % (Auto) Neut % (Auto) Lymph % (Auto) [place] % (Auto) Eos % (Auto) Baso % (Auto) Absolute Neuts (auto) Absolute Lymphs (auto) Total Counted PT INR APTT 164.1 H* Sodium Potassium Chloride Carbon Dioxide Anion Gap BUN Creatinine Estim Creat Clear Calc Est GFR (MDRD) Af Amer Est GFR (MDRD) Non-Af BUN/Creatinine Ratio Glucose Hemoglobin A1c Lactic Acid Calcium Phosphorus Magnesium Total Bilirubin Direct Bilirubin AST ALT Alkaline Phosphatase Troponin I B-Natriuretic Peptide Total Protein Albumin Globulin Triglycerides Cholesterol LDL Cholesterol VLDL Cholesterol HDL Cholesterol Urine Color Urine Clarity Urine pH Ur Specific [place] Urine Protein Urine Glucose (UA) Urine Ketones Urine Occult Blood Urine Nitrite Urine Bilirubin Urine Urobilinogen Ur Leukocyte Esterase Urine RBC Urine WBC Ur Squamous Epith Cells Urine Bacteria Urine Mucus POC Glucose > 500 H* > 500 H* 03/11/18 03/11/18 03/11/18 14:50 15:57 16:59 WBC RBC Hgb Hct MCV MCH MCHC RDW RDW Differential Plt Count MPV Immature Gran % (Auto) Neut % (Auto) Lymph % (Auto) [place] % (Auto) Eos % (Auto) Baso % (Auto) Absolute Neuts (auto) Absolute Lymphs (auto) Total Counted PT INR APTT Sodium Potassium Chloride Carbon Dioxide Anion Gap BUN Creatinine Estim Creat Clear Calc Est GFR (MDRD) Af Amer Est GFR (MDRD) Non-Af BUN/Creatinine Ratio Glucose Hemoglobin A1c Lactic Acid Calcium Phosphorus Magnesium Total Bilirubin Direct Bilirubin AST ALT Alkaline Phosphatase Troponin I B-Natriuretic Peptide Total Protein Albumin Globulin Triglycerides Cholesterol LDL Cholesterol VLDL Cholesterol HDL Cholesterol Urine Color Urine Clarity Urine pH Ur Specific [place] Urine Protein Urine Glucose (UA) Urine Ketones Urine Occult Blood Urine Nitrite Urine Bilirubin Urine Urobilinogen Ur Leukocyte Esterase Urine RBC Urine WBC Ur Squamous Epith Cells Urine Bacteria Urine Mucus POC Glucose > 500 H* 473 H* 434 H 03/11/18 03/11/18 03/11/18 17:13 17:59 18:58 WBC RBC Hgb Hct MCV MCH MCHC RDW RDW Differential Plt Count MPV Immature Gran % (Auto) Neut % (Auto) Lymph % (Auto) [place] % (Auto) Eos % (Auto) Baso % (Auto) Absolute Neuts (auto) Absolute Lymphs (auto) Total Counted PT INR APTT 59.5 H Sodium Potassium Chloride Carbon Dioxide Anion Gap BUN Creatinine Estim Creat Clear Calc Est GFR (MDRD) Af Amer Est GFR (MDRD) Non-Af BUN/Creatinine Ratio Glucose Hemoglobin A1c Lactic Acid Calcium Phosphorus Magnesium Total Bilirubin Direct Bilirubin AST ALT Alkaline Phosphatase Troponin I B-Natriuretic Peptide Total Protein Albumin Globulin Triglycerides Cholesterol LDL Cholesterol VLDL Cholesterol HDL Cholesterol Urine Color Urine Clarity Urine pH Ur Specific [place] Urine Protein Urine Glucose (UA) Urine Ketones Urine Occult Blood Urine Nitrite Urine Bilirubin Urine Urobilinogen Ur Leukocyte Esterase Urine RBC Urine WBC Ur Squamous Epith Cells Urine Bacteria Urine Mucus POC Glucose 413 H 434 H 03/11/18 03/11/18 03/11/18 19:56 21:05 22:03 WBC RBC Hgb Hct MCV MCH MCHC RDW RDW Differential Plt Count MPV Immature Gran % (Auto) Neut % (Auto) Lymph % (Auto) [place] % (Auto) Eos % (Auto) Baso % (Auto) Absolute Neuts (auto) Absolute Lymphs (auto) Total Counted PT INR APTT Sodium Potassium Chloride Carbon Dioxide Anion Gap BUN Creatinine Estim Creat Clear Calc Est GFR (MDRD) Af Amer Est GFR (MDRD) Non-Af BUN/Creatinine Ratio Glucose Hemoglobin A1c Lactic Acid Calcium Phosphorus Magnesium Total Bilirubin Direct Bilirubin AST ALT Alkaline Phosphatase Troponin I B-Natriuretic Peptide Total Protein Albumin Globulin Triglycerides Cholesterol LDL Cholesterol VLDL Cholesterol HDL Cholesterol Urine Color Urine Clarity Urine pH Ur Specific [place] Urine Protein Urine Glucose (UA) Urine Ketones Urine Occult Blood Urine Nitrite Urine Bilirubin Urine Urobilinogen Ur Leukocyte Esterase Urine RBC Urine WBC Ur Squamous Epith Cells Urine Bacteria Urine Mucus POC Glucose 391 H 347 H 287 H 03/11/18 03/11/18 03/11/18 22:58 23:00 23:58 WBC RBC Hgb Hct MCV MCH MCHC RDW RDW Differential Plt Count MPV Immature Gran % (Auto) Neut % (Auto) Lymph % (Auto) [place] % (Auto) Eos % (Auto) Baso % (Auto) Absolute Neuts (auto) Absolute Lymphs (auto) Total Counted PT INR APTT 51.8 H Sodium Potassium Chloride Carbon Dioxide Anion Gap BUN Creatinine Estim Creat Clear Calc Est GFR (MDRD) Af Amer Est GFR (MDRD) Non-Af BUN/Creatinine Ratio Glucose Hemoglobin A1c Lactic Acid Calcium Phosphorus Magnesium Total Bilirubin Direct Bilirubin AST ALT Alkaline Phosphatase Troponin I B-Natriuretic Peptide Total Protein Albumin Globulin Triglycerides Cholesterol LDL Cholesterol VLDL Cholesterol HDL Cholesterol Urine Color Urine Clarity Urine pH Ur Specific [place] Urine Protein Urine Glucose (UA) Urine Ketones Urine Occult Blood Urine Nitrite Urine Bilirubin Urine Urobilinogen Ur Leukocyte Esterase Urine RBC Urine WBC Ur Squamous Epith Cells Urine Bacteria Urine Mucus POC Glucose 277 H 251 H 03/12/18 03/12/18 03/12/18 00:57 01:00 02:26 WBC RBC Hgb Hct MCV MCH MCHC RDW RDW Differential Plt Count MPV Immature Gran % (Auto) Neut % (Auto) Lymph % (Auto) [place] % (Auto) Eos % (Auto) Baso % (Auto) Absolute Neuts (auto) Absolute Lymphs (auto) Total Counted PT INR APTT Sodium 139 Potassium 3.8 Chloride 95 L Carbon Dioxide 35.0 H Anion Gap 9 BUN 44 H Creatinine 1.78 H Estim Creat Clear Calc 22.24 Est GFR (MDRD) Af Amer 36 L Est GFR (MDRD) Non-Af 29 L BUN/Creatinine Ratio 24.7 H Glucose 253 H Hemoglobin A1c Lactic Acid Calcium 9.4 Phosphorus Magnesium Total Bilirubin Direct Bilirubin AST ALT Alkaline Phosphatase Troponin I B-Natriuretic Peptide Total Protein Albumin Globulin Triglycerides Cholesterol LDL Cholesterol VLDL Cholesterol HDL Cholesterol Urine Color Urine Clarity Urine pH Ur Specific [place] Urine Protein Urine Glucose (UA) Urine Ketones Urine Occult Blood Urine Nitrite Urine Bilirubin Urine Urobilinogen Ur Leukocyte Esterase Urine RBC Urine WBC Ur Squamous Epith Cells Urine Bacteria Urine Mucus POC Glucose 249 H 241 H 03/12/18 03/12/18 03/12/18 03:04 04:04 05:07 WBC RBC Hgb Hct MCV MCH MCHC RDW RDW Differential Plt Count MPV Immature Gran % (Auto) Neut % (Auto) Lymph % (Auto) [place] % (Auto) Eos % (Auto) Baso % (Auto) Absolute Neuts (auto) Absolute Lymphs (auto) Total Counted PT INR APTT Sodium Potassium Chloride Carbon Dioxide Anion Gap BUN Creatinine Estim Creat Clear Calc Est GFR (MDRD) Af Amer Est GFR (MDRD) Non-Af BUN/Creatinine Ratio Glucose Hemoglobin A1c Lactic Acid Calcium Phosphorus Magnesium Total Bilirubin Direct Bilirubin AST ALT Alkaline Phosphatase Troponin I B-Natriuretic Peptide Total Protein Albumin Globulin Triglycerides Cholesterol LDL Cholesterol VLDL Cholesterol HDL Cholesterol Urine Color Urine Clarity Urine pH Ur Specific [place] Urine Protein Urine Glucose (UA) Urine Ketones Urine Occult Blood Urine Nitrite Urine Bilirubin Urine Urobilinogen Ur Leukocyte Esterase Urine RBC Urine WBC Ur Squamous Epith Cells Urine Bacteria Urine Mucus POC Glucose 233 H 246 H 203 H 03/12/18 03/12/18 03/12/18 05:15 05:15 05:15 WBC 16.0 H RBC 4.27 Hgb 12.0 Hct 37.8 MCV 88.5 MCH 28.1 MCHC 31.7 L RDW 13.5 RDW Differential 43.0 Plt Count 186 MPV 10.9 Immature Gran % (Auto) 0.600 Neut % (Auto) 75.3 H Lymph % (Auto) 15.0 L [place] % (Auto) 8.9 Eos % (Auto) 0.1 Baso % (Auto) 0.1 Absolute Neuts (auto) 12.1 H Absolute Lymphs (auto) 2.40 Total Counted Not Reportable PT INR APTT Sodium 142 Potassium 3.7 Chloride 96 L Carbon Dioxide 37.0 H Anion Gap 9 BUN 50 H Creatinine 1.71 H Estim Creat Clear Calc 23.15 Est GFR (MDRD) Af Amer 37 L Est GFR (MDRD) Non-Af 31 L BUN/Creatinine Ratio 29.2 H Glucose 227 H Hemoglobin A1c Lactic Acid Calcium 9.2 Phosphorus 5.4 H Magnesium 2.2 Total Bilirubin Direct Bilirubin AST ALT Alkaline Phosphatase Troponin I B-Natriuretic Peptide Total Protein Albumin Globulin Triglycerides Cholesterol LDL Cholesterol VLDL Cholesterol HDL Cholesterol Urine Color Urine Clarity Urine pH Ur Specific [place] Urine Protein Urine Glucose (UA) Urine Ketones Urine Occult Blood Urine Nitrite Urine Bilirubin Urine Urobilinogen Ur Leukocyte Esterase Urine RBC Urine WBC Ur Squamous Epith Cells Urine Bacteria Urine Mucus POC Glucose 03/12/18 03/12/18 03/12/18 05:15 05:50 06:52 WBC RBC Hgb Hct MCV MCH MCHC RDW RDW Differential Plt Count MPV Immature Gran % (Auto) Neut % (Auto) Lymph % (Auto) [place] % (Auto) Eos % (Auto) Baso % (Auto) Absolute Neuts (auto) Absolute Lymphs (auto) Total Counted PT 13.6 INR 1.0 APTT 28.6 Sodium Potassium Chloride Carbon Dioxide Anion Gap BUN Creatinine Estim Creat Clear Calc Est GFR (MDRD) Af Amer Est GFR (MDRD) Non-Af BUN/Creatinine Ratio Glucose Hemoglobin A1c Lactic Acid Calcium Phosphorus Magnesium Total Bilirubin Direct Bilirubin AST ALT Alkaline Phosphatase Troponin I B-Natriuretic Peptide Total Protein Albumin Globulin Triglycerides Cholesterol LDL Cholesterol VLDL Cholesterol HDL Cholesterol Urine Color Urine Clarity Urine pH Ur Specific [place] Urine Protein Urine Glucose (UA) Urine Ketones Urine Occult Blood Urine Nitrite Urine Bilirubin Urine Urobilinogen Ur Leukocyte Esterase Urine RBC Urine WBC Ur Squamous Epith Cells Urine Bacteria Urine Mucus POC Glucose 202 H 169 H Microbiology 03/10/18 20:40 Urine Catheter - Catheter Legionella Antigen - Final 03/10/18 20:40 Urine Catheter - Catheter Streptococcus pneumoniae Antigen (M - Final 03/10/18 19:25 Mucosa - Nasopharyngeal Respiratory Panel (PCR) - Final Clinical Impression(s) from Imaging Studies Chest X-Ray 03/10/18 16:50 IMPRESSION: Increased left hilar and parahilar markings suspicious for bronchitis or early pneumonia. Electronically Signed: Jina Michael MD at 17:22 EST Tel , Service support , Chest X-Ray 03/11/18 06:57 IMPRESSION: Stable elevation of the right hemidiaphragm. Improved aeration of the lung bases. Electronically Signed: Steve Ferreira MD at 15:26 EST Tel [phone], Service support , Medical Necessity - Tobacco Use Smoking Status: Never smoker Assessment/Plan All Active Problems (Last Reviewed 02/02/18 @ 14:53 by Siddharth Magana MD) Diabetes mellitus (Acute) ST segment changes on electrocardiogram (Acute) Hypertensive emergency (Acute) CHF (congestive heart failure) (Acute) Abnormal cardiac enzyme level (Acute) History of non-ST elevation myocardial infarction (NSTEMI) (Acute) RSV infection (Acute) Community acquired pneumonia (Acute) Hypercapnia (Acute) Acute respiratory failure with hypoxia (Ruled-out) Asthma with acute exacerbation (Acute) RECOMMENDATIONS: 1. Continue scheduled Lasix as ordered. 2. Continue 1.5 L fluid restriction 3. The patient is maintaining oxygen saturations on her baseline 3 L/min requirement. Encourage incentive spirometer use. 4. Continue nocturnal CPAP therapy per home regimen. 5. Antibiotics can be discontinued from my perspective. 6. Plans for cardiac catheterization this morning. 7. Increase basal insulin regimen and maintain high intensity sliding scale coverage. IMPRESSIONS: 1. Acute on chronic hypoxemic respiratory failure Likely secondary to decompensated heart failure, coupled with uncontrolled hypertension noted on arrival to the ED. The patient has responded favorably to the use of IV diuretics. She is currently maintaining appropriate oxygen saturations on her baseline 3 L/min requirement. Given that she has no evidence of COPD or asthma on prior pulmonary function testing, scheduled bronchodilators and steroids were discontinued. Although the patient was started on antibiotics for presumptive community-acquired pneumonia, I am less than overwhelmed by the patient's plain film chest x-ray. Infectious workup to date has been unrevealing. Therefore, antibiotics can be discontinued from my perspective. Encourage incentive spirometer use and mobilize patient as tolerated. 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 Recommend continued optimization of the patient's volume status. Continue nocturnal CPAP therapy. 3. Decompensated heart failure with preserved ejection fraction/troponin elevation Cardiology is currently following. Continue medical management per their recommendations. Cardiac catheterization planned for this morning. 4. Obstructive sleep apnea Continue nocturnal CPAP therapy with a pressure support of 7 cm of water with a 3 L/min supplemental oxygen bleed in, per home regimen. 5. Uncontrolled hypertension and diabetes Again, the patient presented to the hospital with a systolic blood pressure in excess of 200 mmHg. Her hemoglobin A1c is in excess of 9. It does appear that her chronic hypertension and diabetes is under poor control. Recommend continued medical optimization of the aforementioned. The patient's baseline basal insulin regimen will be increased. 6. Lactic acidemia Likely secondary to hypoxemia and increased work of breathing noted on arrival. This has improved. There is no indication to continue to check serum lactate levels. 7. Coronary artery disease status post CABG/anxiety/hyperlipidemia/GERD/obesity Complicates care, management, recovery and prognosis. Okay to continue home medications from my perspective. This note was generated with [employer] software. It may contain incorrect words, spelling, and punctuation that were not noted in checking the note before signing. Code Visit Inpatient E&M: 82405 Subs Hosp L3
--- NOTE | 2018-03-12 09:36 | CL.I_ITS ---
Patient Name: SUBHASH GASPAR Study Date: 03/12/2018 Performing: Wisam Gomez MD Ht: 62.99 inches 160 cm : 1940 Wt: 202.83 lbs 92 kg Age: 77 Gender: female BSA: 1.95 PROCEDURE(S) PERFORMED [id number] AND/OR PTCA, SINGLE GRAFT CLINICAL PROFILE AND CO-MORBIDITIES Patient presents with NSTEMI for urgent cardiac cath Indications: Suspected CAD, New Onset Angina <= 2 months, Stable Known CAD, LV Dysfunction, Other Heart Failure: NYHA Class: 3, Newly Diagnosed: Yes, Heart Failure Type: Diastolic, NYHA Class: 2, Newly Diagnosed: No, Heart Failure Type: Systolic Stress/Imaging Stress/Image Study Performed: No Stress/Image Study Performed: No Angina Classification Anginal Classification w/in 2 Weeks: CCS III CAD Presentations: Non-STEMI. Unstable angina. Non-STEMI. Symptom onset Date/Time: 03/10/2018 Time Not Available Comorbidities/Risk Factors: Hypertension Dyslipidemia Prior CABG CONCLUSIONS Successful PTCA/MONSE mid SVG to OM#1/OM2, unable to use a filter wire due to tortuosity and lack of gu kuldeep back up, utilizing a 3.5 x 12 Promus Synergy at 8 anamika; 85%-->0%, no dissection. RECOMMENDATIONS Highly recommend quitting all tobacco products Follow up with primary travel cota Risk factor modification ASA Indefinitley Plavix for at least 12 months Routine post interventional care Refer for Outpatient Cardiac Rehab Manual sheath removal per protocol Follow up with Dr. Feng DESCRIPTION OF PROCEDURE The patient arrived to the procedure lab. The risks and benefits of the procedure as well as a full d escription of our services here and current unavailability of surgical backup were fully explained to the patient and/or their significant other prior to the catheterization. The Timeout was completed, verifying the correct patient and procedure. The patient's procedural site was prepped and draped in the usual fashion. Local anesthetic was given subcutaneously to right groin region with Lidocaine 2% Using a modified Seldinger technique,arterial access was obtained via the right femoral artery, a 4Fr sheath was inserted Left Coronary Artery selective angiography was performed in multiple views using a 4 Fr. JL5 catheter. Right Coronary Artery selective angiography was then performed in multiple vie ws using a 4 Fr. 3DRC catheter. Saphenous Vein graft to the Circumflex selective angiography was perf ormed in multiple views using a 4 Fr. 3DRC catheter. Left internal mammary artery graft to the LAD selective angiography was performed in multiple views using a 4 Fr. JR4 catheter. Saphenous V ein graft to the RCA selective angiography was performed in multiple views using a 4 Fr. RCB catheter . LV to AO pullback pressures were then recorded. Arterial sheath was exchanged for a 6 Fr 55cm Sheath. HS II Guide catheter was inserted and engag ed into the SVG to the Circumflex. BMW Guide wire was advanced to the Circumflex. 2 x 12 Emerge Ballo on catheter was inserted. Balloon catheter was advanced across lesion in the graft to the Circumflex. PTCA balloon inflated at 6 atms for 10 secs. Angiogram performed post balloon dilatation. 3.5 x 12 s ynergy Drug Eluting stent was inserted. Drug Eluting stent was removed intact, failed to cross lesion 3 x 8 Emerge Balloon catheter was inserted. Balloon catheter was advanced across lesion in the graft to the Circumflex. Angiogram performed pre balloon dilatation. PTCA balloon inflated at 4 atms for 5 secs. PTCA balloon inflated at 4 atms for 5 secs. Angiogram performed post balloon dilatation. 3.5 x 12 Synergy Drug Eluting stent was reinserted Drug Eluting stent was removed intact, failed to cross lesion BMW Guide wire was inserted as a drake wire 3.5 x 12 Synergy Drug Eluting stent was reinserted Drug Eluting stent was advanced across the lesion in the graft to the Circumflex. Angiogra m performed post stent deployment. Contrast was injected through the sheath and the Right Iliac and F emoral artery were assessed for possible closure device. The arterial sheath was pulled and a Mynx c losure device was deployed for hemostasis INTERVENTION INFORMATION LESION SITE: Vein > to Circumflex (Mid) Segment Number: 78-Fiu-timanujtlx artery segment - mCIRC , Lesion Location: Body Lesion Complexity: High/C, lesion at bifurcation: No, thrombus present: No, lesion length: 12 mm, cul prit lesion: Yes Pre Stenosis: 85 % Pre intervention YAZ flow: 3 PROCEDURE: Drug Eluting Stent with pre dilatation. Post Stenosis: 0 % Post intervention YAZ flow: 3 Lesion Devices: Medtronic 6 Fr HSII 100cm Guide Catheter Strong .014 BMW Masterson Straight 190cm Reid Sci EMERGE MR 2.00x12 BALLOON Reid Sci Large Vessel 3.5-5.5 Filter Wire 190cm Reid Sci Synergy MR MONSE 3.50x12 Reid Sci EMERGE MR 3.00x08 BALLOON Strong .014 BMW Masterson Straight 190cm COMPLICATIONS No Complications PROCEDURE MEDICATIONS Versed 0.5 mg IV Versed 0.5 mg IV Oxygen: 4 L/min via nasal cannula Heparin 6000 unit(s) IV 03/12/2018 08:40:25 Nitro 200 mcg IC 03/12/2018 09:12:57 Nitro Paste 1 in 03/12/2018 09:21:16 IV Fluids: .9 NaCl increased to 150 ml/hr 03/12/2018 08:43:50 SUMMARY OF HEMODYNAMIC DATA Time AIR REST ECG 07:25:31 AO 170/70 (105) SA 08:05:20 LV 174/25, 36 08:20:43 LV 178/24, 38 08:20:50 LVp 175/32, 46 08:21:02 AOp 179/66 (104) 08:21:07 Signed By Wisam Gomez MD On 03/12/2018 09:36:22 Wisam Gomez MD
[2018-03-12 09:40] LABS: ACT Activated Clotting Time 230 sec (74-137)
--- NOTE | 2018-03-12 09:49 | EKG12_ITS ---
Test Reason : Blood Pressure : / mmHG Vent. Rate : 053 BPM Atrial Rate : 053 BPM P-R Int : 162 ms QRS Dur : 124 ms QT Int : 476 ms P-R-T Axes : 004 048 263 degrees QTc Int : 446 ms Sinus bradycardia Anterior infarct , age undetermined , cannot be excluded ST & T wave abnormality, consider inferolateral ischemia Abnormal ECG Confirmed by RENETTA CURRY, ROSSY ([id number]), newspaper editor KARSON FARRELL ([id number]) on 03/18/2018 11:10:25 AM Referred By: SHASHI Confirmed By:ROSSY JACKSON MD
[2018-03-12 10:11] LABS: Bedside Glucose 180 mg/dL (70-110)
[2018-03-12] MEDS: Gabapentin 100 MG Capsule PO ×2 (10:40→15:01)
[2018-03-12] MEDS: busPIRone 5 MG Tablet PO ×2 (10:40→22:04)
[2018-03-12] MEDS: 0.9% Normal Saline 1,000 ML 150 ML IV (10:40)
[2018-03-12] MEDS: Isosorbide Mononitrate 60 MG Tablet PO (10:41)
[2018-03-12] MEDS: Pantoprazole Sodium 40 MG Tablet PO (10:41)
[2018-03-12] MEDS: Calcitriol 0.25 MCG Capsule PO (10:41)
[2018-03-12] MEDS: Azithromycin 250 MG Tablet 500 MG PO (10:41)
[2018-03-12] MEDS: Metoprolol Tartrate 50 MG Tablet PO ×2 (10:41→22:04)
[2018-03-12] MEDS: Allopurinol 100 MG Tablet PO ×2 (10:42→22:04)
[2018-03-12] MEDS: Ceftriaxone 1 GM/50 ML BAG IV (10:43)
--- NOTE | 2018-03-12 10:54 | CRPHASE1 ---
Patient Data/Charges Former Patient:: Phase II Phase II Referral:: [facility] Start Phase II:: FOLLOWING OFFICE VISIT WITH SENIOR JAVA WEB APPLICATION DEVELOPER Risk Factors/Lifestyle Smoking Status: Never smoker Hx Hypertension: Yes Hx Diabetes Mellitus Type 1: No Hx Diabetes Mellitus Type 2: Yes Hx Metabolic Disorders: Yes Hx Dyslipidemia: Yes Hx Obesity: Yes Height: 5 ft 3 in - BMI 35.8 Post-Menopausal: Yes Stress: Home/Family Risk Factor for Sedentary Lifestyle: Highest Risk Family History: Family History (Last Reviewed 02/02/18 @ 14:53 by Siddharth Magana MD) Mother CAD (coronary artery disease) Daughter CAD (coronary artery disease) Abdominal aortic aneurysm (AAA) Past Cardiac Illness: Coronary Artery Disease, Myocardial Infarction, Previous PCI w/Stent, Coronary Artery Bypass Graft Laboratory Values: Cardiac Rehab Phase I Labs Hemoglobin A1c 9.4 % (4.2-6.3) H 03/10/18 20:12 Triglycerides 62 mg/dL (-199) 03/11/18 04:10 Cholesterol 120 mg/dL (200) 03/11/18 04:10 LDL Cholesterol 52 mg/dL (0-130) 03/11/18 04:10 HDL Cholesterol 56 mg/dL (40-) 03/11/18 04:10 Phase I Education Given On:: [place], Nutrition, Antiplatelet medication, Diabetes - Type II Issues Affecting Care:: None Knowledge of Condition:: Yes Learning Preferences: Verbal, Written - FAMILY AT BEDSIDE Medical/Surgical History [place]:: No CAD:: Yes Diabetes:: Yes Diabetes Type II:: Yes Hypertension:: Yes Dyslipidemia:: Yes GERD:: Yes Thyroid:: Yes - HYPOTHYROIDISM CABG: Yes PTCA:: Yes Discharge/Home/Social Eval Discharge Disposition: Home
--- NOTE | 2018-03-12 10:57 | CRPHASE1_ITS ---
Patient Data/Charges Former Patient:: Phase II Phase II Referral:: [facility] Start Phase II:: FOLLOWING OFFICE VISIT WITH ROD MACHINE OPERATOR Risk Factors/Lifestyle Smoking Status: Never smoker Hx Hypertension: Yes Hx Diabetes Mellitus Type 1: No Hx Diabetes Mellitus Type 2: Yes Hx Metabolic Disorders: Yes Hx Dyslipidemia: Yes Hx Obesity: Yes Height: 5 ft 3 in - BMI 35.8 Post-Menopausal: Yes Stress: Home/Family Risk Factor for Sedentary Lifestyle: Highest Risk Family History: Family History (Last Reviewed 02/02/18 @ 14:53 by Siddharth Magana MD) Mother CAD (coronary artery disease) Daughter CAD (coronary artery disease) Abdominal aortic aneurysm (AAA) Past Cardiac Illness: Coronary Artery Disease, Myocardial Infarction, Previous PCI w/Stent, Coronary Artery Bypass Graft Laboratory Values: Cardiac Rehab Phase I Labs Hemoglobin A1c 9.4 % (4.2-6.3) H 03/10/18 20:12 Triglycerides 62 mg/dL (-199) 03/11/18 04:10 Cholesterol 120 mg/dL (200) 03/11/18 04:10 LDL Cholesterol 52 mg/dL (0-130) 03/11/18 04:10 HDL Cholesterol 56 mg/dL (40-) 03/11/18 04:10 Phase I Education Given On:: [place], Nutrition, Antiplatelet medication, Diabetes - Type II Issues Affecting Care:: None Knowledge of Condition:: Yes Learning Preferences: Verbal, Written - FAMILY AT BEDSIDE Medical/Surgical History [place]:: No CAD:: Yes Diabetes:: Yes Diabetes Type II:: Yes Hypertension:: Yes Dyslipidemia:: Yes GERD:: Yes Thyroid:: Yes - HYPOTHYROIDISM CABG: Yes PTCA:: Yes Discharge/Home/Social Eval Discharge Disposition: Home
--- NOTE | 2018-03-12 10:57 | CRPH1.INSTRU ---
General Education CAD and cardiac anatomy and function:: Patient communicates acknowledgment, Family communicates acknowledgment Explanation of diagnoses and procedures:: Patient communicates acknowledgment, Family communicates acknowledgment Sign/Symptoms of [place]:: Patient communicates acknowledgment, Family communicates acknowledgment Antiplatelet therapy: Patient communicates acknowledgment, Family communicates acknowledgment Proper use of NTG-SL: Not instructed Emergency procedures and activation of EMS: Patient communicates acknowledgment, Family communicates acknowledgment Compliance of all prescribed medications: Patient communicates acknowledgment, Family communicates acknowledgment Smoking Patient Nicotine/Smoking Risk Factors Are:: Never smoked Dyslipidemia Patient Dyslipidemia Risk Factors Are:: Total Cholesterol, Triglycerides, HDL, LDL Recommendations Include:: Lipid profile provided, Reviewed NCEP/ATP guidelines, Therapeutic Lifestyle Change dietary guidelines Dyslipidemia Response Code:: Patient communicates acknowledgment, Family communicates acknowledgment - FAMILY AT BEDSIDE Overweight/Obesity Patient Overweight/Obesity Risk Factors Are:: Obesity - > or = 30 Recommendations Include:: Weight loss of 5-10%, Reduced calorie diet, Exercise 5-7 times/week Overweight/Obesity:: Patient communicates acknowledgment, Family communicates acknowledgment Hypertension Recommendations Include:: BP <130/80 if diabetic, DASH dietary guidelines, Decrease/maintain normal body weight, Moderation of ETOH Hypertension:: Patient communicates acknowledgment, Family communicates acknowledgment Heart Disease Patient Heart Disease Risk Factors Are:: Previous cardiac event Recommendations Include:: Educated family members of their risk, Educated family members of importance of prevention of heart disease Heart Disease Response Code:: Patient communicates acknowledgment, Family communicates acknowledgment Diabetes Patient Diabetes Risk Factors Are:: Elevated blood sugars Date of HgbA1c:: 03/09/18 - 9.4 Recommendations Include:: Maintain fasting blood sugars 70-110 md/dL, Maintain HgbA1c of 6% or less, Monitor blood sugar as prescribed, Diabetic dietary guidelines, Decrease/maintain body weight Diabetes:: Patient communicates acknowledgment, Family communicates acknowledgment Metabolic Syndrome Patient Metabolic Syndrome Risk Factors Are [3 of 5]:: Fasting blood sugar > 100 mg/dL, Waist circumference > 35 [female] or 40 [male], Hypertension Recommendations Include:: Reinforce compliance to risk factor modifications, Patient is diabetic, Encouraged follow-up with Primary Care Physician Metabolic Syndrome Response Code:: Patient communicates acknowledgment, Family communicates acknowledgment Sedentary Patient Sedentary Risk Factors Are:: Lack of regular exercise Recommendations Include:: Aerobic exercise 5-7 times/week for 20-30 minutes continuously, Benefits of regular exercise, Discussed home walking program, Monitored Outpatient Cardiac Rehab Sedentary Response Code:: Patient communicates acknowledgment, Family communicates acknowledgment Stress Recommendations Include:: Identification of stressors, and assessment of coping skills, Stress management techniques Stress Response Code:: Patient communicates acknowledgment, Family communicates acknowledgment
--- NOTE | 2018-03-12 11:00 | CRPH1.INST_ITS ---
General Education CAD and cardiac anatomy and function:: Patient communicates acknowledgment, Family communicates acknowledgment Explanation of diagnoses and procedures:: Patient communicates acknowledgment, Family communicates acknowledgment Sign/Symptoms of [place]:: Patient communicates acknowledgment, Family communicates acknowledgment Antiplatelet therapy: Patient communicates acknowledgment, Family communicates acknowledgment Proper use of NTG-SL: Not instructed Emergency procedures and activation of EMS: Patient communicates acknowledgment, Family communicates acknowledgment Compliance of all prescribed medications: Patient communicates acknowledgment, Family communicates acknowledgment Smoking Patient Nicotine/Smoking Risk Factors Are:: Never smoked Dyslipidemia Patient Dyslipidemia Risk Factors Are:: Total Cholesterol, Triglycerides, HDL, LDL Recommendations Include:: Lipid profile provided, Reviewed NCEP/ATP guidelines, Therapeutic Lifestyle Change dietary guidelines Dyslipidemia Response Code:: Patient communicates acknowledgment, Family christelle walton acknowledgment - FAMILY AT BEDSIDE Overweight/Obesity Patient Overweight/Obesity Risk Factors Are:: Obesity - > or = 30 Recommendations Include:: Weight loss of 5-10%, Reduced calorie diet, Exercise 5-7 times/week Overweight/Obesity:: Patient communicates acknowledgment, Family communicates acknowledgment Hypertension Recommendations Include:: BP <130/80 if diabetic, DASH dietary guidelines, Decrease/maintain normal body weight, Moderation of ETOH Hypertension:: Patient communicates acknowledgment, Family communicates acknowledgment Heart Disease Patient Heart Disease Risk Factors Are:: Previous cardiac event Recommendations Include:: Educated family members of their risk, Educated family members of importance of prevention of heart disease Heart Disease Response Code:: Patient communicates acknowledgment, Family communicates acknowledgment Diabetes Patient Diabetes Risk Factors Are:: Elevated blood sugars Date of HgbA1c:: 03/09/18 - 9.4 Recommendations Include:: Maintain fasting blood sugars 70-110 md/dL, Maintain HgbA1c of 6% or less, Monitor blood sugar as prescribed, Diabetic dietary guidelines, Decrease/maintain body weight Diabetes:: Patient communicates acknowledgment, Family communicates acknowledgment Metabolic Syndrome Patient Metabolic Syndrome Risk Factors Are [3 of 5]:: Fasting blood sugar > 100 mg/dL, Waist circumference > 35 [female] or 40 [male], Hypertension Recommendations Include:: Reinforce compliance to risk factor modifications, Patient is diabetic, Encouraged follow-up with Primary Care Physician Metabolic Syndrome Response Code:: Patient communicates acknowledgment, Family communicates acknowledgment Sedentary Patient Sedentary Risk Factors Are:: Lack of regular exercise Recommendations Include:: Aerobic exercise 5-7 times/week for 20-30 minutes continuously, Benefits of regular exercise, Discussed home walking program, M onitored Outpatient Cardiac Rehab Sedentary Response Code:: Patient communicates acknowledgment, Family communicates acknowledgment Stress Recommendations Include:: Identification of stressors, and assessment of coping skills, Stress management techniques Stress Response Code:: Patient communicates acknowledgment, Family communicates acknowledgment
--- NOTE | 2018-03-12 12:19 | PCM.PN.CARD ---
Subjectve: The patient underwent diagnostic cardiac catheterization earlier this day. She did have progression of SVG graft disease leading to the OM system. She underwent subsequent PCI. She is without acute complaint/adverse event at this time. Objective: Vital Signs Temp Pulse Resp BP Pulse Ox 97.6 F L 57 L 16 153/90 H 99 03/12/18 09:45 03/12/18 11:00 03/12/18 11:00 03/12/18 11:00 03/12/18 11:00 Oxygen Flow Rate (L/min) 2 Oxygen Delivery Method Nasal Cannula Weight: 202 lb 2.622 oz Body Mass Index (BMI) 36.1 Finger Stick Blood Glucose 169 Intake and Output for Last 24 Hours 03/10/18 03/11/18 03/12/18 23:59 23:59 23:59 Intake Total 3031.0 / 3031.0 458 / 458 Output Total 4175 / 4175 900 / 900 Balance -1144.0 / -1144.0 -442 / -442 General: Awake, Alert, Oriented x 3, Cooperative, No Acute Distress HEENT: Atraumatic, Normocephalic, PERRL, EOMI, Sclera Non Icteric Oral: Moist Mucosa Neck: Supple, Good ROM, No JVD Lungs: - - Scattered rhonchi Cardiovascular: Regular Rhythm, Normal S1, Normal S2 Vascular: Normal Femoral Pulses Abdomen: Bowel Sounds Present, Soft, Non Tender Extremities: No edema Psych/Mental Status: Appropriate 03/11/18 04:10: Total Bilirubin 0.20, Direct Bilirubin 0.12 03/11/18 17:13: APTT 59.5 H 03/11/18 23:00: APTT 51.8 H 03/12/18 01:00: Sodium 139, Potassium 3.8, Chloride 95 L, Carbon Dioxide 35.0 H, Anion Gap 9, BUN 44 H, Creatinine 1.78 H, Est GFR (MDRD) Af Amer 36 L, Est GFR (MDRD) Non-Af 29 L, BUN/Creatinine Ratio 24.7 H, Glucose 253 H, Calcium 9.4 03/12/18 05:15: WBC 16.0 H, RBC 4.27, Hgb 12.0, Hct 37.8, MCV 88.5, MCH 28.1, MCHC 31.7 L, RDW 13.5, RDW Differential 43.0, Plt Count 186, MPV 10.9, Immature Gran % (Auto) 0.600, Neut % (Auto) 75.3 H, Lymph % (Auto) 15.0 L, [place] % (Auto) 8.9, Eos % (Auto) 0.1, Baso % (Auto) 0.1, Absolute Neuts (auto) 12.1 H, Total Counted Not Reportable 03/12/18 05:15: Sodium 142, Potassium 3.7, Chloride 96 L, Carbon Dioxide 37.0 H, Anion Gap 9, BUN 50 H, Creatinine 1.71 H, Est GFR (MDRD) Af Amer 37 L, Est GFR (MDRD) Non-Af 31 L, BUN/Creatinine Ratio 29.2 H, Glucose 227 H, Calcium 9.2, Magnesium 2.2 03/12/18 05:15: Phosphorus 5.4 H 03/12/18 05:15: PT 13.6, INR 1.0, APTT 28.6 Rhythm: Sinus rhythm Cardiac Cath: See official report PCI: See official report Medical Necessity - Tobacco Use Smoking Status: Never smoker Assessment/Plan 1. Abnormal cardiac enzymes/non-ST segment elevation ND The patient is now status post further evaluation with repeat diagnostic cardiac catheterization. She was found to have progression of SVG graft disease leading to the OM system. She underwent PCI. She will continue medical management. She will continue in outpatient follow-up as deemed appropriate. 2. CAD status post PCI status post CABG Again the patient has undergone further evaluation with diagnostic cardiac catheterization. This led to PCI. The patient will continue medical management at this time. 3. CHF: Acute systolic The patient will need to be monitored for her concerns of volume overload. She will need continued medical adjustment to bring her volume status under better control. 4. Dyslipidemia She will continue risk factor evaluation care as tolerated. 5. Hypertensive emergency Her blood pressures will be followed. Her medications can be adjusted to try and bring her blood pressure under better control. 6. Pulmonary hypertension The patient has been evaluated at the [facility] Main campus for pulmonary hypertension. She underwent right heart cardiac catheterization in October 2017. The summary is as noted above. She states she was told to follow with her primary firewall security engineer Dr. Balbuena for further evaluation and care. 7. Diabetes mellitus She will continue evaluation care per internal medicine. 8. Pneumonia There is concern that she has an underlying pneumonia. She is being treated with antibiotic therapy. Overall, at the present time, the patient will continue to be monitored in the ICU. This note was generated using a voice recognition system and there may be incorrect words, spelling or punctuation that were not noted when reviewing the office note prior to saving.
--- NOTE | 2018-03-12 12:23 | PN.CARD_ITS ---
Subjectve: The patient underwent diagnostic cardiac catheterization earlier this day. She did have progression of SVG graft disease leading to the OM system. She underwent subsequent PCI. She is without acute complaint/adverse event at this time. Objective: Vital Signs Temp Pulse Resp BP Pulse Ox 97.6 F L 57 L 16 153/90 H 99 03/12/18 09:45 03/12/18 11:00 03/12/18 11:00 03/12/18 11:00 03/12/18 11:00 Oxygen Flow Rate (L/min) 2 Oxygen Delivery Method Nasal Cannula Weight: 202 lb 2.622 oz Body Mass Index (BMI) 36.1 Finger Stick Blood Glucose 169 Intake and Output for Last 24 Hours 03/10/18 03/11/18 03/12/18 23:59 23:59 23:59 Intake Total 3031.0 / 3031.0 458 / 458 Output Total 4175 / 4175 900 / 900 Balance -1144.0 / -1144.0 -442 / -442 General: Awake, Alert, Oriented x 3, Cooperative, No Acute Distress HEENT: Atraumatic, Normocephalic, PERRL, EOMI, Sclera Non Icteric Oral: Moist Mucosa Neck: Supple, Good ROM, No JVD Lungs: - - Scattered rhonchi Cardiovascular: Regular Rhythm, Normal S1, Normal S2 Vascular: Normal Femoral Pulses Abdomen: Bowel Sounds Present, Soft, Non Tender Extremities: No edema Psych/Mental Status: Appropriate 03/11/18 04:10: Total Bilirubin 0.20, Direct Bilirubin 0.12 03/11/18 17:13: APTT 59.5 H 03/11/18 23:00: APTT 51.8 H 03/12/18 01:00: Sodium 139, Potassium 3.8, Chloride 95 L, Carbon Dioxide 35.0 H, Anion Gap 9, BUN 44 H, Creatinine 1.78 H, Est GFR (MDRD) Af Amer 36 L, Est GFR (MDRD) Non-Af 29 L, BUN/Creatinine Ratio 24.7 H, Glucose 253 H, Calcium 9.4 03/12/18 05:15: WBC 16.0 H, RBC 4.27, Hgb 12.0, Hct 37.8, MCV 88.5, MCH 28.1, MCHC 31.7 L, RDW 13.5, RDW Differential 43.0, Plt Count 186, MPV 10.9, Immature Gran % (Auto) 0.600, Neut % (Auto) 75.3 H, Lymph % (Auto) 15.0 L, [place] % (Auto) 8.9, Eos % (Auto) 0.1, Baso % (Auto) 0.1, Absolute Neuts (auto) 12.1 H, Total Counted Not Reportable 03/12/18 05:15: Sodium 142, Potassium 3.7, Chloride 96 L, Carbon Dioxide 37.0 H, Anion Gap 9, BUN 50 H, Creatinine 1.71 H, Est GFR (MDRD) Af Amer 37 L, Est GFR (MDRD) Non-Af 31 L, BUN/Creatinine Ratio 29.2 H, Glucose 227 H, Calcium 9.2, Magnesium 2.2 03/12/18 05:15: Phosphorus 5.4 H 03/12/18 05:15: PT 13.6, INR 1.0, APTT 28.6 Rhythm: Sinus rhythm Cardiac Cath: See official report PCI: See official report Medical Necessity - Tobacco Use Smoking Status: Never smoker Assessment/Plan 1. Abnormal cardiac enzymes/non-ST segment elevation [place] The patient is now status post further evaluation with repeat diagnostic cardiac catheterization. She was found to have progression of SVG graft disease leading to the OM system. She underwent PCI. She will continue medical management. She will continue in outpatient follow-up as deemed appropriate. 2. CAD status post PCI status post CABG Again the patient has undergone further evaluation with diagnostic cardiac catheterization. This led to PCI. The patient will continue medical management at this time. 3. CHF: Acute systolic The patient will need to be monitored for her concerns of volume overload. She will need continued medical adjustment to bring her volume status under better control. 4. Dyslipidemia She will continue risk factor evaluation care as tolerated. 5. Hypertensive emergency Her blood pressures will be followed. Her medications can be adjusted to try and bring her blood pressure under better control. 6. Pulmonary hypertension The patient has been evaluated at the [facility] Main campus for pulmonary hypertension. She underwent right heart cardiac catheterization in October 2017. The summary is as noted above. 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 Balbuena for further evaluation and care. 7. Diabetes mellitus She will continue evaluation care per internal medicine. 8. Pneumonia There is concern that she has an underlying pneumonia. She is being treated with antibiotic therapy. Overall, at the present time, the patient will continue to be monitored in the ICU. This note was generated using a voice recognition system and there may be incorrect words, spelling or punctuation that were not noted when reviewing the office note prior to saving.
--- NOTE | 2018-03-12 13:31 | CL.D_ITS ---
Patient Name: SUBHASH GASPAR Study Date: 03/12/2018 Performing: Femi Feng MD Ht: 62.99 inches 160 cm : 1940 Wt: 202.83 lbs 92 kg Age: 77 Gender: female BSA: 1.95 PROCEDURE(S) PERFORMED MN19-APL/COR/CABG [id number] AND/OR PTCA, SINGLE GRAFT CLINICAL PROFILE AND INDICATIONS Patient presents with NSTEMI for urgent cardiac cath Indications: Suspected CAD, New Onset Angina <= 2 months, Stable Known CAD, LV Dysfunction, Other Heart Failure: NYHA Class: 3, Newly Diagnosed: Yes, Heart Failure Type: Diastolic, NYHA Class: 2, Newly Diagnosed: No, Heart Failure Type: Systolic Stress/Imaging Stress/Image Study Performed: No Stress/Image Study Performed: No Angina Classification Anginal Classification w/in 2 Weeks: CCS III CAD Presentations: Non-STEMI. Unstable angina. Non-STEMI. Symptom onset Date/Time: 03/10/2018 Time Not Available Comorbidities/Risk Factors: Hypertension Dyslipidemia Prior CABG CONCLUSIONS Elevated Left Ventricular End Diastolic Pressure [place] Multivessel CAD DENISE to LAD: patent SVG to RCA: patent / SVG graft stent: patent RECOMMENDATIONS Risk factor modification Medical therapy Referred for immediate PCI DESCRIPTION OF PROCEDURE The patient arrived to the procedure lab. The risks and benefits of the procedure as well as a full d escription of our services here and current unavailability of surgical backup were fully explained to the patient and/or their significant other prior to the catheterization. The Timeout was completed, verifying the correct patient and procedure. The patient's procedural site was prepped and draped in the usual fashion. Local anesthetic was given subcutaneously to right groin region with Lidocaine 2%. Using a modified Seldinger technique, arterial access was obtained via the right femoral artery, a 4 Fr sheath was inserted Left Coronary Artery selective angiography was performed in multiple views us ing a 4 Fr. JL5 catheter. Right Coronary Artery selective angiography was then performed in multiple views using a 4 Fr. 3DRC catheter. Saphenous Vein graft to the Circumflex selective angiography was p erformed in multiple views using a 4 Fr. 3DRC catheter. Left internal mammary artery graft to the LAD selective angiography was performed in multiple views using a 4 Fr. JR4 catheter. Saphenou s Vein graft to the RCA selective angiography was performed in multiple views using a [address] LV to AO pullback pressures were then recorded.Contrast was injected through the sheath and the Right Iliac and Femoral artery were assessed for possible closure device.The arterial sheath was pull ed and a Mynx closure device was deployed for hemostasis CORONARY ANGIOGRAPHY DOMINANCE: Right Dominant LEFT HEART ASSESSMENT Left Ventricular Ejection Fraction: Not assessed Elevated Left Ventricular End Diastolic Pressure LVEDP: 38 mmHg LEFT ANTERIOR DECENDING ARTERY: MID LAD: is occluded with the remainder of the vessel being a small caliber vessel and filling from t he DENISE graft with no angiographically significant appearing disease distal to the anastomosis CIRCUMFLEX ARTERY: PROX CIRC: Previously placed stent is patent with proximal long smooth 10-25% MID CIRC: Mild luminal irregularities DISTAL CIRC: Mild luminal irregularities OM 1: Proximal - is occluded with the distal vessel filling from the SVG graft with no angiographical ly significant appearing disease distal to the anastomosis and 2nd Obtuse Marginal: Proximal - is occ luded with the remainder of the vessel filling from the sequential SVG graft to OM1 with no angiograp hically significant appearing disease distal to the anastomosis OM 2: Proximal - is occluded with the remainder of the vessel filling from the sequential SVG graft t o OM1 with no angiographically significant appearing disease distal to the anastomosis RIGHT CORONARY ARTERY: PROX RCA: is occluded RT PDA: Proximal - to distal filling from the SVG graft with no angiographically significant appearin g disease distal to the graft attachment GRAFTS: DENISE graft to the Mid LAD is patent Saphenous Vein graft to the 1st OM is patent with sequential portion to OM2 patent with the sequentia l portion with an eccentric 85% stenosis Saphenous Vein graft to the RCA is patent with an SVG graft stent being patent 1st Obtuse Marginal: Proximal - is occluded with the distal vessel filling from the SVG graft with no angiographically significant appearing disease distal to the anastomosis and 2nd Obtuse Marginal: Pr oximal - is occluded with the remainder of the vessel filling from the sequential SVG graft to OM1 wi th no angiographically significant appearing disease distal to the anastomosis COMPLICATIONS No Complications PROCEDURE MEDICATIONS Versed 0.5 mg IV Versed 0.5 mg IV Oxygen: 4 L/min via nasal cannula Heparin 6000 unit(s) IV 03/12/2018 08:40:25 Nitro 200 mcg IC 03/12/2018 09:12:57 Nitro Paste 1 in 03/12/2018 09:21:16 IV Fluids: .9 NaCl increased to 150 ml/hr 03/12/2018 08:43:50 SUMMARY OF HEMODYNAMIC DATA Time AIR REST ECG 07:25:31 AO 170/70 (105) SA 08:05:20 LV 174/25, 36 08:20:43 LV 178/24, 38 08:20:50 LVp 175/32, 46 08:21:02 AOp 179/66 (104) 08:21:07 Signed By Femi Feng MD On 03/12/2018 13:31:00 Femi Feng MD
[2018-03-12] MEDS: hydrALAZINE 25 MG Tablet PO ×2 (15:01→23:56)
[2018-03-12] MEDS: Acetaminophen 325 MG Tablet 650 MG PO (15:01)
[2018-03-12] MEDS: Furosemide 40 MG/4 ML Vial IV ×2 (15:01→22:04)
--- NOTE | 2018-03-12 15:54 | PCM.PROGNOTE ---
Patient Problems: Active and Suspected Problems (Last Updated 03/12/18 @ 12:16 by Marija Alcazar) Diabetes mellitus (Acute) Hypertensive emergency (Acute) CHF (congestive heart failure) (Acute) Abnormal cardiac enzyme level (Acute) Subjective: All events of the past 24 hours of been reviewed. Afebrile. Systolic blood pressure is mildly increased. She is 95% saturated on a 2 L nasal cannula. Fluid balance since admission is -1246. Laboratory: White blood cell count today is 16 with 75% neutrophils. Hemoglobin and platelets are within normal limits. The serum bicarb is 37 and the creatinine is 1.71 and this is stable. HERMINIO globin A1c was 9.4%. Phosphorus is high at 5.4 today. She underwent cardiac catheterization today and was referred for immediate PCI with MONSE to the mid circumflex. Preprocedure stenosis was 85% and the postprocedure stenosis was 0%. She denies chest pain and shortness of breath. She is complaining of a headache and also complaining she has diarrhea. I spoke to her nurse and she had a very large formed stool and afterwards had a small amount of yellow discharge. Telemetry shows NSR with 1 ventricular triplet Objective: PHYSICAL EXAM: GENERAL: alert, oriented X 3, Cooperative, NAD ORAL: moist mucosa, no mucosal lesions NECK: No JVD, supple, trachea midline LUNGS: CTA, symmetric chest expansion, diminished HEART: RRR, Normal S1 and S2, no rub, no gallop, no MM ABDOMEN: soft, NT, ND, BS present(not hyperactive), no guarding with palpation EXTREMITIES: no edema, no cyanosis, no calf tenderness SKIN: No rashes, no breakdown NEUROLOGIC: no focal neurologic deficits....the pain in the legs is better today PSYCH: appropriate, normal affect, pleasant - Physical Exam Vital Signs Temp Pulse Resp BP Pulse Ox 97.6 F L 72 16 155/79 H 95 03/12/18 12:00 03/12/18 15:01 03/12/18 15:00 03/12/18 15:00 03/12/18 15:00 Oxygen Flow Rate (L/min) 2 Oxygen Delivery Method Nasal Cannula Weight: 202 lb 2.622 oz Body Mass Index (BMI) 36.1 Finger Stick Blood Glucose 169 Intake and Output for Last 24 Hours 03/10/18 03/11/18 03/12/18 23:59 23:59 23:59 Intake Total 3031.0 / 3031.0 1098 / 1098 Output Total 4175 / 4175 1200 / 1200 Balance -1144.0 / -1144.0 -102 / -102 Microbiology Past 72 Hours 03/10/18 20:40 Legionella Antigen - Final Urine Catheter - Catheter Streptococcus pneumoniae Antigen (M - Final 03/10/18 19:25 Respiratory Panel (PCR) - Final Mucosa - Nasopharyngeal Laboratory Tests Past 24 Hrs 03/11/18 03/11/18 03/12/18 17:13 23:00 01:00 WBC RBC Hgb Hct MCV MCH MCHC RDW RDW Differential Plt Count MPV Immature Gran % (Auto) Neut % (Auto) Lymph % (Auto) [place] % (Auto) Eos % (Auto) Baso % (Auto) Absolute Neuts (auto) Absolute Lymphs (auto) Total Counted PT INR APTT 59.5 H 51.8 H Activated Clotting Time Sodium 139 Potassium 3.8 Chloride 95 L Carbon Dioxide 35.0 H Anion Gap 9 BUN 44 H Creatinine 1.78 H Estim Creat Clear Calc 22.24 Est GFR (MDRD) Af Amer 36 L Est GFR (MDRD) Non-Af 29 L BUN/Creatinine Ratio 24.7 H Glucose 253 H Calcium 9.4 Phosphorus Magnesium 03/12/18 03/12/18 03/12/18 05:15 05:15 05:15 WBC 16.0 H RBC 4.27 Hgb 12.0 Hct 37.8 MCV 88.5 MCH 28.1 MCHC 31.7 L RDW 13.5 RDW Differential 43.0 Plt Count 186 MPV 10.9 Immature Gran % (Auto) 0.600 Neut % (Auto) 75.3 H Lymph % (Auto) 15.0 L [place] % (Auto) 8.9 Eos % (Auto) 0.1 Baso % (Auto) 0.1 Absolute Neuts (auto) 12.1 H Absolute Lymphs (auto) 2.40 Total Counted Not Reportable PT INR APTT Activated Clotting Time Sodium 142 Potassium 3.7 Chloride 96 L Carbon Dioxide 37.0 H Anion Gap 9 BUN 50 H Creatinine 1.71 H Estim Creat Clear Calc 23.15 Est GFR (MDRD) Af Amer 37 L Est GFR (MDRD) Non-Af 31 L BUN/Creatinine Ratio 29.2 H Glucose 227 H Calcium 9.2 Phosphorus 5.4 H Magnesium 2.2 03/12/18 03/12/18 05:15 09:17 WBC RBC Hgb Hct MCV MCH MCHC RDW RDW Differential Plt Count MPV Immature Gran % (Auto) Neut % (Auto) Lymph % (Auto) [place] % (Auto) Eos % (Auto) Baso % (Auto) Absolute Neuts (auto) Absolute Lymphs (auto) Total Counted PT 13.6 INR 1.0 APTT 28.6 Activated Clotting Time 230 H Sodium Potassium Chloride Carbon Dioxide Anion Gap BUN Creatinine Estim Creat Clear Calc Est GFR (MDRD) Af Amer Est GFR (MDRD) Non-Af BUN/Creatinine Ratio Glucose Calcium Phosphorus Magnesium POC Glucose 03/12/18 03/12/18 03/12/18 10:08 06:52 05:50 POC Glucose 180 H 169 H 202 H 03/12/18 03/12/18 03/12/18 05:07 04:04 03:04 POC Glucose 203 H 246 H 233 H 03/12/18 03/12/18 03/11/18 02:26 00:57 23:58 POC Glucose 241 H 249 H 251 H 03/11/18 03/11/18 03/11/18 22:58 22:03 21:05 POC Glucose 277 H 287 H 347 H 03/11/18 03/11/18 03/11/18 19:56 18:58 17:59 POC Glucose 391 H 434 H 413 H 03/11/18 03/11/18 16:59 15:57 POC Glucose 434 H 473 H* Medical Necessity - Tobacco Use Smoking Status: Never smoker Assessment/Plan All Active Problems (Last Updated 03/12/18 @ 12:16 by Marija Alcazar) NSTEMI (non-ST elevated myocardial infarction) (Acute 03/12/18) Diabetes mellitus (Acute) Hypertensive emergency (Acute) CHF (congestive heart failure) (Acute) Abnormal cardiac enzyme level (Acute) History of non-ST elevation myocardial infarction (NSTEMI) (Acute) RSV infection (Acute) Community acquired pneumonia (Acute) Hypercapnia (Acute) Acute respiratory failure with hypoxia (Ruled-out) Asthma with acute exacerbation (Acute) Impressions 1. Acute congestive heart failure 2. Non-ST elevation ND-type I 3. Coronary artery disease with history of CABG and stents 4. ALYCE -compliant with CPAP 5. Morbid obesity 6. Hypothyroidism 7. Dyslipidemia 8. Asthma 9. Chronic respiratory failure with hypoxemia on 3 L of nasal O2 chronically, 10. Chronic renal failure stage III 11. Pulmonary hypertension 12. Rheumatoid arthritis 13. Irritable bowel syndrome 14. GERD 15. Diabetes mellitus type 2-uncontrolled with a hemoglobin A1c of 9.4 16. Hypertension-not adequately controlled 17. Diabetic peripheral polyneuropathy 18. MONSE to the mid circ Increase the Amlodipine to 5 mg daily for better BP control Recheck lab in the AM Recheck a PA and Later CXR in the AM Supplement the potassium to keep it around 4 BS's are coming under better control If the CXR is better since diuresis will DC the antibiotics Continue gabapentin Vicodin for [place] Code Visit Inpatient E&M: [id number] [facility] L3
[2018-03-12] MEDS: Insulin NPH Human 100 UNITS/ML PEN 45 UNITS SC (17:42)
[2018-03-12 17:51] LABS: Bedside Glucose 419 mg/dL (70-110)
[2018-03-12] MEDS: Pravastatin 80 MG Tablet PO (22:04)
[2018-03-12] MEDS: Gabapentin 100 MG Capsule 200 MG PO (22:04)
[2018-03-13] VITALS (15 sets, daily range): BP systolic 114–164; BP diastolic 1–94; PULSE 50–64; RESP 17–25; TEMP 36.6–37.3; O2SAT 97–100
[2018-03-13] MEDS: hydrALAZINE 25 MG Tablet PO (04:50)
[2018-03-13] MEDS: Furosemide 40 MG/4 ML Vial IV (04:51)
[2018-03-13 05:23] LABS: Hematocrit 37.2 % (37-47); Mean Corp Hgb Conc 32.3 g/gl (32-36); Mean Corpuscular Hgb 28.6 pg (27.0-32.0); Mean Corpuscular Volume 88.8 fL (81-99); Platelet Count 185 K/mm3 (150-450); RBC Distribution Width CV 13.3 % (11.6-14.6); RBC Distribution Width SD 42.8 fl (35.1-43.9); Red Blood Count 4.19 M/mm3 (4.2-5.4); White Blood Count 12.1 K/mm3 (4.4-11.0)
[2018-03-13 05:24] LABS: Scan Indicated on CBC? Y/N NO
[2018-03-13 05:41] LABS: Anion Gap 8 (5-15); BUN 56 mg/dL (7-18); BUN/Creat Ratio 32.4 RATIO (10-20); Calcium,Total 8.9 mg/dL (8.5-10.1); Chloride 98 mmol/L (98-107); Creatinine, Serum 1.73 mg/dL (0.55-1.02); EST Glomerular Filtration Rate 30 mL/min (>60); Est Glom Filt Rate - Afr Amer 37 mL/min (>60); Estimated Creatinine Clearance 22.89 ml/min; Glucose 297 mg/dL (74-106); Potassium 4.4 mmol/L (3.5-5.1); Sodium Level 140 mmol/L (136-145)
--- NOTE | 2018-03-13 05:55 | RAD_ITS ---
STUDY: X-RAY CHEST REASON FOR EXAM: Female, 77 years old. Congestive heart failure TECHNIQUE: PA and lateral views of the chest. COMPARISON: 03/11/2018 FINDINGS: Right hemidiaphragm is mildly elevated. No airspace consolidation. Minimal reticular scarring in the left lung base is stable. There is no demonstrated pleural abnormality. Normal size heart. Sternal wires and mediastinal surgical clips compatible with prior CABG. Normal mediastinum and billy. Normal visualized pulmonary arteries. There is atherosclerotic calcification of the aortic arch with tortuosity. Normal visualized thoracic spine. Normal visualized ribs, clavicles, and shoulders. There is no demonstrated abnormality of the visualized soft tissue structures of the upper abdomen. RAD/Chest PA and Lateral IMPRESSION: 1. No airspace consolidation or pleural effusion. 2. CABG. 3. Stable elevation right hemidiaphragm. Electronically Signed: Franklin Manning MD at 7:05 EST , Service support ,
--- NOTE | 2018-03-13 06:33 | PN_ITS ---
Subjective: The patient was seen and examined at the bedside this morning. Events from the last 24 hours have been reviewed. The patient is currently afebrile, hemodynamically stable and maintaining appropriate oxygen saturations on her baseline 3 L/min requirement. The patient did undergo cardiac catheterization yesterday with subsequent drug-eluting stent placement to the mid SVG. The patient denies shortness of breath or chest pain this morning. Objective: The patient's most recent lab work, culture data and imaging studies have all been personally reviewed. Surface echocardiogram revealed a mildly dilated LV with segmental dysfunction. Ejection fraction was 55%. Right ventricular systolic pressure was unable to be estimated. Respiratory viral panel was negative. Strep and urine Legionella antigens were both negative. Blood and urine cultures have shown no growth to date. General: Alert, Cooperative, No apparent distress HEENT: Atraumatic, PERRLA, Normocephalic Oral: No Gingival or Mucosal Lesions/ Ulcerations Neck: Supple, No Nodes, Trachea Midline Lungs: No rhonchi, No wheeze, No rales Cardiovascular: Regular rate, Regular Rhythm, Normal S1, Normal S2, No murmurs Abdomen: Bowel Sounds Present, Soft, Non Tender, Obese Extremities: No clubbing, No cyanosis, No edema Skin: No breakdown Musculoskeletal: No Tenderness to Palpation of Joints or Extremities, No Muscle Wasting Lymphatic: No Cervical, Supraclavicular, or Inguinal Adenopathy Neurological: Cranial nerves II-XII grossly intact, Neuro grossly intact Psych/Mental Status: Normal Affect, Appropriate Vital Signs Temp Pulse Resp BP Pulse Ox 36.6 C 53 L 20 H 149/71 H 100 03/13/18 04:00 03/13/18 06:00 03/13/18 06:00 03/13/18 06:00 03/13/18 06:00 Oxygen Flow Rate (L/min) 3 Oxygen Delivery Method Nasal Cannula Weight: 199 lb 11.821 oz Body Mass Index (BMI) 36.1 Finger Stick Blood Glucose 169 Intake and Output for Last 24 Hours 03/11/18 03/12/18 03/13/18 23:59 23:59 23:59 Intake Total 3031.0 / 3031.0 1900 / 1900 495 / 495 Output Total 4175 / 4175 1700 / 1700 725 / 725 Balance -1144.0 / -1144.0 200 / 200 -230 / -230 Labs (Last 48 Hours) 03/11/18 03/11/18 03/11/18 04:10 07:45 08:07 WBC RBC Hgb Hct MCV MCH MCHC RDW RDW Differential Plt Count MPV Immature Gran % (Auto) Neut % (Auto) Lymph % (Auto) [place] % (Auto) Eos % (Auto) Baso % (Auto) Absolute Neuts (auto) Absolute Lymphs (auto) Total Counted PT INR APTT Activated Clotting Time Sodium Potassium Chloride Carbon Dioxide Anion Gap BUN Creatinine Estim Creat Clear Calc Est GFR (MDRD) Af Amer Est GFR (MDRD) Non-Af BUN/Creatinine Ratio Glucose Calcium Phosphorus Magnesium Total Bilirubin 0.20 Direct Bilirubin 0.12 AST 43 H ALT 28 Alkaline Phosphatase 108 Troponin I 7.090 H* Total Protein 7.1 Albumin 3.2 Globulin 3.9 POC Glucose 405 H 03/11/18 03/11/18 03/11/18 10:38 11:53 13:46 WBC RBC Hgb Hct MCV MCH MCHC RDW RDW Differential Plt Count MPV Immature Gran % (Auto) Neut % (Auto) Lymph % (Auto) [place] % (Auto) Eos % (Auto) Baso % (Auto) Absolute Neuts (auto) Absolute Lymphs (auto) Total Counted PT INR APTT 164.1 H* Activated Clotting Time Sodium Potassium Chloride Carbon Dioxide Anion Gap BUN Creatinine Estim Creat Clear Calc Est GFR (MDRD) Af Amer Est GFR (MDRD) Non-Af BUN/Creatinine Ratio Glucose Calcium Phosphorus Magnesium Total Bilirubin Direct Bilirubin AST ALT Alkaline Phosphatase Troponin I Total Protein Albumin Globulin POC Glucose > 500 H* > 500 H* 03/11/18 03/11/18 03/11/18 14:50 15:57 16:59 WBC RBC Hgb Hct MCV MCH MCHC RDW RDW Differential Plt Count MPV Immature Gran % (Auto) Neut % (Auto) Lymph % (Auto) [place] % (Auto) Eos % (Auto) Baso % (Auto) Absolute Neuts (auto) Absolute Lymphs (auto) Total Counted PT INR APTT Activated Clotting Time Sodium Potassium Chloride Carbon Dioxide Anion Gap BUN Creatinine Estim Creat Clear Calc Est GFR (MDRD) Af Amer Est GFR (MDRD) Non-Af BUN/Creatinine Ratio Glucose Calcium Phosphorus Magnesium Total Bilirubin Direct Bilirubin AST ALT Alkaline Phosphatase Troponin I Total Protein Albumin Globulin POC Glucose > 500 H* 473 H* 434 H 03/11/18 03/11/18 03/11/18 17:13 17:59 18:58 WBC RBC Hgb Hct MCV MCH MCHC RDW RDW Differential Plt Count MPV Immature Gran % (Auto) Neut % (Auto) Lymph % (Auto) [place] % (Auto) Eos % (Auto) Baso % (Auto) Absolute Neuts (auto) Absolute Lymphs (auto) Total Counted PT INR APTT 59.5 H Activated Clotting Time Sodium Potassium Chloride Carbon Dioxide Anion Gap BUN Creatinine Estim Creat Clear Calc Est GFR (MDRD) Af Amer Est GFR (MDRD) Non-Af BUN/Creatinine Ratio Glucose Calcium Phosphorus Magnesium Total Bilirubin Direct Bilirubin AST ALT Alkaline Phosphatase Troponin I Total Protein Albumin Globulin POC Glucose 413 H 434 H 03/11/18 03/11/18 03/11/18 19:56 21:05 22:03 WBC RBC Hgb Hct MCV MCH MCHC RDW RDW Differential Plt Count MPV Immature Gran % (Auto) Neut % (Auto) Lymph % (Auto) [place] % (Auto) Eos % (Auto) Baso % (Auto) Absolute Neuts (auto) Absolute Lymphs (auto) Total Counted PT INR APTT Activated Clotting Time Sodium Potassium Chloride Carbon Dioxide Anion Gap BUN Creatinine Estim Creat Clear Calc Est GFR (MDRD) Af Amer Est GFR (MDRD) Non-Af BUN/Creatinine Ratio Glucose Calcium Phosphorus Magnesium Total Bilirubin Direct Bilirubin AST ALT Alkaline Phosphatase Troponin I Total Protein Albumin Globulin POC Glucose 391 H 347 H 287 H 03/11/18 03/11/18 03/11/18 22:58 23:00 23:58 WBC RBC Hgb Hct MCV MCH MCHC RDW RDW Differential Plt Count MPV Immature Gran % (Auto) Neut % (Auto) Lymph % (Auto) [place] % (Auto) Eos % (Auto) Baso % (Auto) Absolute Neuts (auto) Absolute Lymphs (auto) Total Counted PT INR APTT 51.8 H Activated Clotting Time Sodium Potassium Chloride Carbon Dioxide Anion Gap BUN Creatinine Estim Creat Clear Calc Est GFR (MDRD) Af Amer Est GFR (MDRD) Non-Af BUN/Creatinine Ratio Glucose Calcium Phosphorus Magnesium Total Bilirubin Direct Bilirubin AST ALT Alkaline Phosphatase Troponin I Total Protein Albumin Globulin POC Glucose 277 H 251 H 03/12/18 03/12/18 03/12/18 00:57 01:00 02:26 WBC RBC Hgb Hct MCV MCH MCHC RDW RDW Differential Plt Count MPV Immature Gran % (Auto) Neut % (Auto) Lymph % (Auto) [place] % (Auto) Eos % (Auto) Baso % (Auto) Absolute Neuts (auto) Absolute Lymphs (auto) Total Counted PT INR APTT Activated Clotting Time Sodium 139 Potassium 3.8 Chloride 95 L Carbon Dioxide 35.0 H Anion Gap 9 BUN 44 H Creatinine 1.78 H Estim Creat Clear Calc 22.24 Est GFR (MDRD) Af Amer 36 L Est GFR (MDRD) Non-Af 29 L BUN/Creatinine Ratio 24.7 H Glucose 253 H Calcium 9.4 Phosphorus Magnesium Total Bilirubin Direct Bilirubin AST ALT Alkaline Phosphatase Troponin I Total Protein Albumin Globulin POC Glucose 249 H 241 H 03/12/18 03/12/18 03/12/18 03:04 04:04 05:07 WBC RBC Hgb Hct MCV MCH MCHC RDW RDW Differential Plt Count MPV Immature Gran % (Auto) Neut % (Auto) Lymph % (Auto) [place] % (Auto) Eos % (Auto) Baso % (Auto) Absolute Neuts (auto) Absolute Lymphs (auto) Total Counted PT INR APTT Activated Clotting Time Sodium Potassium Chloride Carbon Dioxide Anion Gap BUN Creatinine Estim Creat Clear Calc Est GFR (MDRD) Af Amer Est GFR (MDRD) Non-Af BUN/Creatinine Ratio Glucose Calcium Phosphorus Magnesium Total Bilirubin Direct Bilirubin AST ALT Alkaline Phosphatase Troponin I Total Protein Albumin Globulin POC Glucose 233 H 246 H 203 H 03/12/18 03/12/18 03/12/18 05:15 05:15 05:15 WBC 16.0 H RBC 4.27 Hgb 12.0 Hct 37.8 MCV 88.5 MCH 28.1 MCHC 31.7 L RDW 13.5 RDW Differential 43.0 Plt Count 186 MPV 10.9 Immature Gran % (Auto) 0.600 Neut % (Auto) 75.3 H Lymph % (Auto) 15.0 L [place] % (Auto) 8.9 Eos % (Auto) 0.1 Baso % (Auto) 0.1 Absolute Neuts (auto) 12.1 H Absolute Lymphs (auto) 2.40 Total Counted Not Reportable PT INR APTT Activated Clotting Time Sodium 142 Potassium 3.7 Chloride 96 L Carbon Dioxide 37.0 H Anion Gap 9 BUN 50 H Creatinine 1.71 H Estim Creat Clear Calc 23.15 Est GFR (MDRD) Af Amer 37 L Est GFR (MDRD) Non-Af 31 L BUN/Creatinine Ratio 29.2 H Glucose 227 H Calcium 9.2 Phosphorus 5.4 H Magnesium 2.2 Total Bilirubin Direct Bilirubin AST ALT Alkaline Phosphatase Troponin I Total Protein Albumin Globulin POC Glucose 03/12/18 03/12/18 03/12/18 05:15 05:50 06:52 WBC RBC Hgb Hct MCV MCH MCHC RDW RDW Differential Plt Count MPV Immature Gran % (Auto) Neut % (Auto) Lymph % (Auto) [place] % (Auto) Eos % (Auto) Baso % (Auto) Absolute Neuts (auto) Absolute Lymphs (auto) Total Counted PT 13.6 INR 1.0 APTT 28.6 Activated Clotting Time Sodium Potassium Chloride Carbon Dioxide Anion Gap BUN Creatinine Estim Creat Clear Calc Est GFR (MDRD) Af Amer Est GFR (MDRD) Non-Af BUN/Creatinine Ratio Glucose Calcium Phosphorus Magnesium Total Bilirubin Direct Bilirubin AST ALT Alkaline Phosphatase Troponin I Total Protein Albumin Globulin POC Glucose 202 H 169 H 03/12/18 03/12/18 03/12/18 09:17 10:08 17:40 WBC RBC Hgb Hct MCV MCH MCHC RDW RDW Differential Plt Count MPV Immature Gran % (Auto) Neut % (Auto) Lymph % (Auto) [place] % (Auto) Eos % (Auto) Baso % (Auto) Absolute Neuts (auto) Absolute Lymphs (auto) Total Counted PT INR APTT Activated Clotting Time 230 H Sodium Potassium Chloride Carbon Dioxide Anion Gap BUN Creatinine Estim Creat Clear Calc Est GFR (MDRD) Af Amer Est GFR (MDRD) Non-Af BUN/Creatinine Ratio Glucose Calcium Phosphorus Magnesium Total Bilirubin Direct Bilirubin AST ALT Alkaline Phosphatase Troponin I Total Protein Albumin Globulin POC Glucose 180 H 419 H 03/13/18 03/13/18 05:00 05:00 WBC 12.1 H RBC 4.19 L Hgb 12.0 Hct 37.2 MCV 88.8 MCH 28.6 MCHC 32.3 RDW 13.3 RDW Differential 42.8 Plt Count 185 MPV 11.0 Immature Gran % (Auto) Neut % (Auto) Lymph % (Auto) [place] % (Auto) Eos % (Auto) Baso % (Auto) Absolute Neuts (auto) Absolute Lymphs (auto) Total Counted PT INR APTT Activated Clotting Time Sodium 140 Potassium 4.4 Chloride 98 Carbon Dioxide 34.0 H Anion Gap 8 BUN 56 H Creatinine 1.73 H Estim Creat Clear Calc 22.89 Est GFR (MDRD) Af Amer 37 L Est GFR (MDRD) Non-Af 30 L BUN/Creatinine Ratio 32.4 H Glucose 297 H Calcium 8.9 Phosphorus Magnesium Total Bilirubin Direct Bilirubin AST ALT Alkaline Phosphatase Troponin I Total Protein Albumin Globulin POC Glucose Microbiology 03/10/18 20:40 Urine Catheter - Catheter Legionella Antigen - Final 03/10/18 20:40 Urine Catheter - Catheter Streptococcus pneumoniae Antigen (M - Final 03/10/18 19:25 Mucosa - Nasopharyngeal Respiratory Panel (PCR) - Final Clinical Impression(s) from Imaging Studies Chest X-Ray 03/10/18 16:50 IMPRESSION: Increased left hilar and parahilar markings suspicious for bronchitis or early pneumonia. Electronically Signed: Jina Michael MD at 17:22 EST Tel , Service support , Chest X-Ray 03/11/18 06:57 IMPRESSION: Stable elevation of the right hemidiaphragm. Improved aeration of the lung bases. Electronically Signed: Steve Ferreira MD at 15:26 EST Tel [phone], Service support , Medical Necessity - Tobacco Use Smoking Status: Never smoker Assessment/Plan All Active Problems (Last Updated 03/13/18 @ 11:28 by Kang Peña DO) S/P PTCA (percutaneous transluminal coronary angioplasty) (Acute) Cystitis (Acute) NSTEMI (non-ST elevated myocardial infarction) (Acute 03/12/18) Hypertensive emergency (Acute) CHF (congestive heart failure) (Acute) Acute respiratory failure with hypoxia (Ruled-out) Asthma with acute exacerbation (Acute) Community acquired pneumonia (Resolved) History of non-ST elevation myocardial infarction (NSTEMI) (Resolved) Hypercapnia (Resolved) RSV infection (Resolved) RECOMMENDATIONS: 1. Continue scheduled Lasix as ordered. 2. Continue 1.5 L fluid restriction 3. The patient is maintaining oxygen saturations on her baseline 3 L/min requirement. Encourage incentive spirometer use. 4. Continue nocturnal CPAP therapy per home regimen. 5. Antibiotics can be discontinued from my perspective. 6. Continue basal insulin regimen and maintain high intensity sliding scale coverage. 7. The patient should follow-up in the office of Dr. Balbuena upon discharge from the hospital. IMPRESSIONS: 1. Acute on chronic hypoxemic respiratory failure Likely secondary to decompensated heart failure, coupled with uncontrolled hypertension noted on arrival to the ED. The patient has responded favorably to the use of IV diuretics. She is currently maintaining appropriate oxygen saturations on her baseline 3 L/min requirement. Given that she has no evidence of COPD or asthma on prior pulmonary function testing, scheduled bronchodilators and steroids were discontinued. Although the patient was started on antibiotics for presumptive community-acquired pneumonia, I am less than overwhelmed by the patient's plain film chest x-ray. Infectious workup to date has been unrevealing. Therefore, antibiotics can be discontinued from my perspective. Encourage incentive spirometer use and mobilize patient as tolerated. The patient should follow-up with Dr. Balbuena upon discharge from the hospital. 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 Recommend continued optimization of the patient's volume status. Continue nocturnal CPAP therapy. 3. Decompensated heart failure with preserved ejection fraction/troponin elevation Cardiology is currently following. Continue medical management per their recommendations. The patient did undergo cardiac catheterization with subsequent drug-eluting stent placement. 4. Obstructive sleep apnea Continue nocturnal CPAP therapy with a pressure support of 7 cm of water with a 3 L/min supplemental oxygen bleed in, per home regimen. 5. Uncontrolled hypertension and diabetes Again, the patient presented to the hospital with a systolic blood pressure in excess of 200 mmHg. Her hemoglobin A1c is in excess of 9. It does appear that her chronic hypertension and diabetes is under poor control. Recommend continued medical optimization of the aforementioned. Continue basal insulin regimen and sliding scale coverage. 6. Lactic acidemia Likely secondary to hypoxemia and increased work of breathing noted on arrival. This has improved. There is no indication to continue to check serum lactate levels. 7. Coronary artery disease status post CABG/anxiety/hyperlipidemia/GERD/obesity Complicates care, management, recovery and prognosis. Okay to continue home medications from my perspective. This note was generated with [employer] dictation software. It may contain incorrect words, spelling, and punctuation that were not noted in checking the note before signing. DISPOSITION: The patient is medically stable for transfer out of the intensive care unit. Given her lack of ongoing ICU/pulmonary needs, will sign off. Please call with any additional questions. Code Visit Inpatient E&M: 73507 Subs Hosp L2
[2018-03-13 07:01] LABS: Bedside Glucose 287 mg/dL (70-110)
[2018-03-13] MEDS: Gabapentin 100 MG Capsule PO (08:17)
[2018-03-13] MEDS: Aspirin 81 MG TAB.CHEW PO (08:17)
[2018-03-13] MEDS: Acetaminophen 325 MG Tablet 650 MG PO (08:20)
[2018-03-13 08:21] LABS: Bedside Glucose 290 mg/dL (70-110)
[2018-03-13] MEDS: Insulin NPH Human 100 UNITS/ML PEN 45 UNITS SC (08:21)
--- NOTE | 2018-03-13 09:57 | PCM.PN.CARD ---
Subjectve: Patient doing very well this morning, no 24-hour events. Telemetry showed normal sinus rhythm, no PVCs. Right groin is clean/dry/intact without evidence of thrills, bruits or hematoma. 2+ DP and PT pulses bilaterally. EKG today demonstrates normal sinus rhythm with minor lateral ST segment depression which is improved over baseline. Hemoglobin and creatinine within nominal limits. Objective: Vital Signs Temp Pulse Resp BP Pulse Ox 97.9 F 55 L 20 H 114/46 L 100 03/13/18 04:00 03/13/18 09:00 03/13/18 09:00 03/13/18 09:00 03/13/18 09:00 Oxygen Flow Rate (L/min) 3 Oxygen Delivery Method Nasal Cannula Weight: 199 lb 11.821 oz Body Mass Index (BMI) 36.1 Finger Stick Blood Glucose 169 Intake and Output for Last 24 Hours 03/11/18 03/12/18 03/13/18 23:59 23:59 23:59 Intake Total 3031.0 / 3031.0 1900 / 1900 495 / 495 Output Total 4175 / 4175 1700 / 1700 725 / 725 Balance -1144.0 / -1144.0 200 / 200 -230 / -230 General: Awake, Alert, Oriented x 3 HEENT: PERRL, EOMI, Sclera Non Icteric Neck: Supple, Good ROM, No Lymph Node Enlargement Lungs: Clear to auscultation Cardiovascular: Regular Rhythm, Normal S1, Normal S2, No Murmurs, No Rubs, No Gallops Vascular: No Carotid Bruits, Normal Femoral Pulses, Normal Radial Pulses, Normal Dorsalis Pedal Pulse, Normal Posterior Tibial Pulses Abdomen: Bowel Sounds Present, Soft, Non Tender, No HSM, No Organomegaly Extremities: No Cyanosis, No Clubbing, No edema Neurological: No Focal Motor or Sensory Deficit 03/13/18 05:00: WBC 12.1 H, RBC 4.19 L, Hgb 12.0, Hct 37.2, MCV 88.8, MCH 28.6, MCHC 32.3, RDW 13.3, RDW Differential 42.8, Plt Count 185, MPV 11.0 03/13/18 05:00: Sodium 140, Potassium 4.4, Chloride 98, Carbon Dioxide 34.0 H, Anion Gap 8, BUN 56 H, Creatinine 1.73 H, Est GFR (MDRD) Af Amer 37 L, Est GFR (MDRD) Non-Af 30 L, BUN/Creatinine Ratio 32.4 H, Glucose 297 H, Calcium 8.9 Rhythm: EKG: ECHO: Stress Test: Cardiac Cath: PCI: CT Surgery: Holter monitor: EPS: PPM: CXR: Chest CT Scan: Medical Necessity - Tobacco Use Smoking Status: Never smoker Assessment/Plan 1. Coronary artery disease: The patient presents with respiratory failure as well as non-STEMI with a troponin of 7.0 and underwent left heart catheterization with graft angiography by Dr. Feng yesterday. This demonstrated progression of saphenous vein graft disease in her saphenous vein graft sequentially to OM1 and OM #2. Patient underwent successful angioplasty and drug-eluting stent to the saphenous vein graft with an excellent result. Patient feels much better today. Would recommend continuing baby aspirin, Plavix, antihypertensives as outlined in the MRF. The patient may be discharged home from a cardiac standpoint unless other respiratory issues are still unresolved. Patient will follow-up with Dr. Feng or Dr. Magana going forward. Echocardiogram showed EF around 5055% with inferior basal hypokinesis. Patient is responded well to IV diuretic therapy. Recommend discontinuation of IV Lasix and switching her to Lasix 40 mg p.o. daily going forward. Patient was on no diuretic therapy at home. 2. Patient may be discharged home from a cardiac standpoint once her respiratory situation has resolved. Thank you very much for the opportunity to participate in the cardiac care of your patient. We will sign off. Code Visit Inpatient E&M: 66199 Subs Hosp L2
[2018-03-13] MEDS: busPIRone 5 MG Tablet PO (10:51)
[2018-03-13] MEDS: CHLORHEXIDINE GLUC 2% CLOTH 1 EACH TOWELETTE TOPICAL (10:51)
[2018-03-13] MEDS: Calcitriol 0.25 MCG Capsule PO (10:52)
[2018-03-13] MEDS: Azithromycin 250 MG Tablet 500 MG PO (10:52)
[2018-03-13] MEDS: Allopurinol 100 MG Tablet PO (10:52)
[2018-03-13] MEDS: Pantoprazole Sodium 40 MG Tablet PO (10:52)
[2018-03-13] MEDS: Clopidogrel Bisulfate 75 MG Tablet PO (10:52)
[2018-03-13] MEDS: Isosorbide Mononitrate 60 MG Tablet PO (10:53)
[2018-03-13] MEDS: Metoprolol Tartrate 25 MG Tablet PO (10:54)
[2018-03-13] MEDS: amLODIPine 5 MG Tablet PO (10:55)
[2018-03-13] MEDS: Furosemide 40 MG Tablet PO (10:57)
[2018-03-13] MEDS: Ceftriaxone 1 GM/50 ML BAG IV (10:57)
--- NOTE | 2018-03-13 11:28 | DCINST_ITS ---
- Discharge Diagnoses Current Active Problems: Current Active and Chronic Problems (Last Updated 03/12/18 @ 12:16 by Marija Alcazar) Diabetes mellitus (Acute) CKD (chronic kidney disease), stage III (Chronic) Hypertensive emergency (Acute) CHF (congestive heart failure) (Acute) Abnormal cardiac enzyme level (Acute) CAD (coronary artery disease) (Chronic) S/P CABG (coronary artery bypass graft) (Chronic) You will use the following diet at home:: Calorie/Carbohydrate Controlled (specify 1200, 1400, etc) - 1600 calorie, Cardiac Your food should be the consistency of: Regular Your liquids should be the consistency of: Regular/Thin Discharge Activity: - - work up to walking for 30 minutes a day at least 5-6 times a week May shower in (days): 1 May resume sexual activity in: 10-14 days Weight Bearing Status: Full weight bearing Lifting Restrictions: 10 lbs Call your doctor if your incision/area has: Continuous Slow Oozing, Sudden Increased Bleeding, Increased Pain/ Swelling, Increased Redness, Foul Smelling Discharge, Swelling at the incision site Call your doctor if you observe: Fever of 101 or Higher, Shortness of breath, Dizziness, Fainting spells, Swelling in the ankles, Chest pain, - - Call your PCP if severe diarrhea ( > 5 stools a day), painful sores in the mouth, painful swallowing, rash or itching. Taking a probiotic such as Lactobacillus or Kefir can help with loose stools while taking antibiotics. Additional Instructions: Your HGBA1C is 9.4%. With all your medical problems you need to work hard to lose weight and stick to a low carb diet and get the HGBA1C down to 7. Your Blood sugars will come down with exercise and weight loss. Pending Tests on Discharge: urine culture results Allergies/Adverse Reactions: Allergies simvastatin [From Zocor] Allergy (Verified 03/10/18 16:12) Unknown lisinopril Adverse Reaction (Severe, Verified 03/10/18 16:12) cough oxycodone [From Percocet] Adverse Reaction (Severe, Verified 03/10/18 16:12) Bad Dreams acetaminophen [From Vicodin] Adverse Reaction (Verified 03/10/18 16:12) Vomiting hydrocodone bitartrate [From Vicodin] Adverse Reaction (Verified 03/10/18 16:12) Vomiting AMMONIUM LACTATE Allergy (Uncoded 03/10/18 16:12) Rash Medications to take at Discharge Aspirin [Aspirin, Baby] 81 mg PO DAILY@0800 08/23/13 Omeprazole [Prilosec] 40 mg PO DAILY 08/23/13 Budesonide Aerosol [Pulmicort Respules] 0.25 mg INHALATION Q12H 04/11/14 Isosorbide Mononitrate [Imdur] 60 mg PO DAILY #30 tab 12/31/15 Albuterol Aerosols [Ventolin Aerosols] 2.5 mg INHALATION BID 04/02/17 Insulin Regular, Human [Humulin R] 40 unit SQ BID 05/10/17 Calcitriol [Rocaltrol] 0.25 mcg PO DAILY 05/17/17 clopidogrel 75 mg tablet 75 mg PO DAILY #90 tab 11/25/17 Allopurinol 100 mg PO BID 03/10/18 Furosemide [Lasix] 20 - 80 mg PO DAILY 03/10/18 Insulin NPH Human [Humulin N Pen] 45 units SC BID 03/10/18 Oxygen, Home [Home Oxygen] 3 lpm NASAL DAILY 03/10/18 Pravastatin [Pravachol] 80 mg PO QHS 03/10/18 busPIRone [Buspar] 5 mg PO BID 03/10/18 Amlodipine [Norvasc] 5 mg PO DAILY #30 tablet 03/13/18 Aspirin [Aspirin, Baby] 81 mg PO DAILY@0800 tab.chew 03/13/18 Cefadroxil [Duricef] 500 mg PO BID #14 capsule 03/13/18 Furosemide [Lasix] 40 mg PO DAILY #30 tablet 03/13/18 Gabapentin [Neurontin] 100 mg PO 0800,1500 #120 capsule 03/13/18 Insulin NPH Human [Humulin N Pen] 45 units SC BIDCM pen 03/13/18 Metoprolol Tartrate [Lopressor (beta meredith)] 25 mg PO BID #60 tablet 03/13/18 Nitroglycerin [Nitrostat] 0.4 mg SUBLINGUAL Q5M PRN #1 bottle 03/13/18 Potassium Chloride [K-Dur] 20 meq PO DAILY #30 tablet 03/13/18 Prednisone 10 mg PO DAILY #10 tablet 03/13/18 The following prescriptions were given: Amlodipine [Norvasc] 5 mg PO DAILY #30 tablet Furosemide [Lasix] 40 mg PO DAILY #30 tablet Gabapentin [Neurontin] 100 mg PO 0800,1500 #120 capsule Nitroglycerin [Nitrostat] 0.4 mg SUBLINGUAL Q5M PRN #1 bottle PRN Reason: Cardiac/Chest Pain Potassium Chloride [K-Dur] 20 meq PO DAILY #30 tablet Prednisone 10 mg PO DAILY #10 tablet Cefadroxil [Duricef] 500 mg PO BID #14 capsule Metoprolol Tartrate [Lopressor (beta meredith)] 25 mg PO BID #60 tablet Primary Care Physician: Jeffrey Lopez MD [Primary Care Provider] - Please follow up with your Primary Care Physician in: 3-5 days Test Results: Test results from this visit will be discussed in further detail at your follow- up appointment, if applicable. Please Follow Up With: Femi Feng MD When: 2 weeks Proposed Discharge Date: 03/13/18
--- NOTE | 2018-03-13 11:36 | PCM.DC.SUM ---
Discharge Date and Diagnosis - Problem List Patient Problems: Active and Suspected Problems (Last Updated 03/12/18 @ 12:16 by Marija Alcazar) S/P PTCA (percutaneous transluminal coronary angioplasty) (Acute) Cystitis (Acute) Hypertensive emergency (Acute) CHF (congestive heart failure) (Acute) Date of Admission: 03/10/18 Date of Discharge: 03/13/18 - Primary Discharge Diagnosis Active and Suspected Problems (Last Updated 03/12/18 @ 12:16 by Marija Alcazar) NSTEMI S/P PTCA (percutaneous transluminal coronary angioplasty) (Acute) - to CIRC Acute diastolic CHF Hypertensive emergency (Acute) Cystitis (Acute) - Secondary Discharge Diagnosis Chronic Problems (Last Updated 03/12/18 @ 12:16 by aMrija Alcazra) Chronic renal failure, stage 4 (severe) (Chronic) S/P CABG (coronary artery bypass graft) (Chronic) Atherosclerosis 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 angina pectoris (Chronic) Presence of stent in coronary artery (Chronic 03/12/18) PCI/MONSE SVG-PDA 11/2012: MONSE to SVG om!/OM2 using 3.5 X 12 Space Monkey, 03/12/2018 Atherosclerotic heart disease of eagle coronary artery without angina pectoris (Chronic) ALYCE (obstructive sleep apnea) (Chronic) on CPAP Obesity (Chronic) Hypothyroidism (Chronic) Dyslipidemia (Chronic) 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 Femi Feng and Dr. Wisam [facility] Dr. Jeremie Olvera-senior product development engineer/junior media buyer Operations: None Procedures: 2-D Echocardiogram - Widely dilated left ventricle with preserved ejection fraction of 55%. There is segmental wall motion abnormalities. The left atrium is mildly enlarged. Trivial TR and pulmonary insufficiency. Unable to estimate right ventricular systolic pressure due to a technically difficult study. Probable diastolic dysfunction., Cardiac catheterization - Cardiac catheterization demonstrated progression of saphenous vein graft disease in her saphenous vein graft sequentially to OM1 and OM 2. She underwent successful angioplasty and drug-eluting stent to the mid saphenous vein graft to OM1/OM 2. Postprocedure the stenosis was 0%, down from 85%. Summary of Care Provided: The patient is a 77-year-old female with a past medical history of ALYCE ( now on CPAP), morbid obesity, hypothyroidism, dyslipidemia, coronary artery disease, history of CABG, history of PTCA/MONSE x2 in the past, asthma, chronic respiratory failure with hypoxemia on 3 L of nasal O2 chronically, chronic renal failure stage IV, pulmonary hypertension, rheumatoid arthritis, IBS, GERD, uncontrolled diabetes mellitus type 2 and hypertension who presented to the emergency department at [facility] on 03/10/2018 complaining of progressively worsening dyspnea associated with a nonproductive cough. She had been placed on prednisone therapy as an outpatient but did not significantly improve. Prior to presenting to the emergency room she had midsternal chest pressure associated with bilateral neck pain. She complained of orthopnea and a recent 10 pound weight gain. Vital signs in the emergency department were temperature 97.9, heart rate 125, blood pressure 201/107, respiratory rate 30 and she was 98% saturated on a nonrebreather. She was transitioned to BiPAP with some improvement. White blood cell count was elevated at 15.7. BMP showed a sodium of 135, BUN and creatinine of 32 and 1.74 respectively and a glucose of 556. Lactic acid was elevated at 7.4 and the troponin was 0.029. EKG showed tachycardia with inferior ST segment depression. Chest x-ray showed increased left hilar and perihilar markings suspicious for early pneumonia. She was treated with aspirin, aerosolized bronchodilators, Rocephin and azithromycin in the emergency department and also received Lasix 40 mg IV. She was admitted to the intensive care unit. The second troponin was 2.[address] Feng was consulted. He recommended continuing medical management with aspirin, Plavix, nitrates, beta-blockers, lipid-lowering agents, intravenous diuretics and anticoagulants. She was placed on a heparin infusion. Troponin peaked at 7.78 and the patient was taken for cardiac catheterization on 03/12/2018 and had PTCA/MONSE to the saphenous vein graft to OM #1 and OM #2. On 03/13/2018 she denied chest pain and also denies shortness of breath. Telemetry showed normal sinus rhythm with no significant ventricular ectopy. The right groin was clean/dry/intact with no evidence of bleeding or hematoma. Pedal pulses were mildly decreased at +2/3 bilaterally. Creatinine was stable at 1.73 with a BUN of 56. Her renal failure has progressed to stage IV and her estimated creatinine clearance is in the 20s. Diabetes is not well controlled and her hemoglobin A1c was 9.4%. Her blood sugars initially were over 500. A urine culture obtained from a catheter showed 0 WBC's but grew a gram-positive coccus and the final urine culture is pending. Legionella and streptococcal antigens were negative in the urine. Respiratory panel was negative. Blood cultures had no growth after 48 hours. He was initially febrile while in the ICU. She was discharged from the hospital on 03/13/2018 and will follow up with Dr. Feng in the office in 2 weeks. She was instructed not to lift more than 10 pounds. No sex for 10-14 days. She was instructed to start an exercise program and to work up to walking 30 minutes 5-6 times a week. We discussed her elevated hemoglobin A1c and I suggested she try to lose weight, stick to a low carbohydrate diet and follow-up with Dr. Lopez for adjustments in her insulin if necessary. She has been on steroids in the hospital and this contributes to her elevated blood sugars at discharge. She will call me on 03/14/18 for the results on the urine culture. She will need to antiplatelet agents for at least one year and she is being discharged on aspirin and Plavix. Her hemoglobin is within normal limits. She was also discharged on metoprolol, RASHEL inhibitor, statin and nitrate. She was given a prescription for sublingual nitroglycerin and instructed on proper use. Prednisone will be tapered over the next 6 days. GENERAL: alert, oriented X 3, Cooperative, NAD ORAL: moist mucosa, no mucosal lesions NECK: No JVD, supple, trachea midline LUNGS: CTA, symmetric chest expansion, diminished, no wheezes and no rails HEART: RRR, Normal S1 and S2, no rub, no gallop, no MM ABDOMEN: soft, NT, ND, BS present(not hyperactive), no guarding with palpation EXTREMITIES: no edema, no cyanosis, no calf tenderness SKIN: No rashes, no breakdown NEUROLOGIC: no focal neurologic deficits....the pain in the legs is better today PSYCH: appropriate, normal affect, pleasant This note was generated with [employer] dictation software. It may contain incorrect words, spelling, and punctuation that were not noted in checking the note before signing. Patient Problems: Active and Suspected Problems (Last Updated 03/12/18 @ 12:16 by Marija Alcazar) S/P PTCA (percutaneous transluminal coronary angioplasty) (Acute) Cystitis (Acute) Hypertensive emergency (Acute) CHF (congestive heart failure) (Acute) - Physical Exam Vital Signs Temp Pulse Resp BP Pulse Ox 97.9 F 60 20 H 148/94 H 100 03/13/18 04:00 03/13/18 10:54 03/13/18 09:00 03/13/18 10:54 03/13/18 09:00 Oxygen Flow Rate (L/min) 3 Oxygen Delivery Method Nasal Cannula Weight: 199 lb 11.821 oz Body Mass Index (BMI) 36.1 Finger Stick Blood Glucose 169 Intake and Output for Last 24 Hours 03/11/18 03/12/18 03/13/18 23:59 23:59 23:59 Intake Total 3031.0 / 3031.0 1900 / 1900 495 / 495 Output Total 4175 / 4175 1700 / 1700 725 / 725 Balance -1144.0 / -1144.0 200 / 200 -230 / -230 Microbiology Past 72 Hours 03/10/18 18:24 Blood Culture - Preliminary Blood Culture (Wb) - Left Hand No growth in 48 hours. 03/10/18 18:11 Blood Culture - Preliminary Blood Culture (Wb) - Anticubital Left No growth in 48 hours. 03/10/18 20:40 Urine Culture - Preliminary Urine Catheter - Catheter Gram Positive Cocci Legionella Antigen - Final Streptococcus pneumoniae Antigen (M - Final 03/10/18 19:25 Respiratory Panel (PCR) - Final Mucosa - Nasopharyngeal Laboratory Tests Past 24 Hrs 03/13/18 03/13/18 05:00 05:00 WBC 12.1 H RBC 4.19 L Hgb 12.0 Hct 37.2 MCV 88.8 MCH 28.6 MCHC 32.3 RDW 13.3 RDW Differential 42.8 Plt Count 185 MPV 11.0 Sodium 140 Potassium 4.4 Chloride 98 Carbon Dioxide 34.0 H Anion Gap 8 BUN 56 H Creatinine 1.73 H Estim Creat Clear Calc 22.89 Est GFR (MDRD) Af Amer 37 L Est GFR (MDRD) Non-Af 30 L BUN/Creatinine Ratio 32.4 H Glucose 297 H Calcium 8.9 POC Glucose 03/13/18 03/13/18 03/12/18 08:11 06:53 17:40 POC Glucose 290 H 287 H 419 H Discharge Activity: - - work up to walking for 30 minutes a day at least 5-6 times a week May shower in (days): 1 May resume sexual activity in: 10-14 days Weight Bearing Status: Full weight bearing Call your doctor if your incision/area has: Continuous Slow Oozing, Sudden Increased Bleeding, Increased Pain/ Swelling, Increased Redness, Foul Smelling Discharge, Swelling at the incision site Call your doctor if you observe: Fever of 101 or Higher, Shortness of breath, Dizziness, Fainting spells, Swelling in the ankles, Chest pain, - - Call your PCP if severe diarrhea ( > 5 stools a day), painful sores in the mouth, painful swallowing, rash or itching. Taking a probiotic such as Lactobacillus or Kefir can help with loose stools while taking antibiotics. Home Medications: Medications to take at Discharge Aspirin [Aspirin, Baby] 81 mg PO DAILY@0800 08/23/13 Omeprazole [Prilosec] 40 mg PO DAILY 08/23/13 Budesonide Aerosol [Pulmicort Respules] 0.25 mg INHALATION Q12H 04/11/14 Isosorbide Mononitrate [Imdur] 60 mg PO DAILY #30 tab 12/31/15 Albuterol Aerosols [Ventolin Aerosols] 2.5 mg INHALATION BID 04/02/17 Insulin Regular, Human [Humulin R] 40 unit SQ BID 05/10/17 Calcitriol [Rocaltrol] 0.25 mcg PO DAILY 05/17/17 clopidogrel 75 mg tablet 75 mg PO DAILY #90 tab 11/25/17 Allopurinol 100 mg PO BID 03/10/18 Furosemide [Lasix] 20 - 80 mg PO DAILY 03/10/18 Insulin NPH Human [Humulin N Pen] 45 units SC BID 03/10/18 Oxygen, Home [Home Oxygen] 3 lpm NASAL DAILY 03/10/18 Pravastatin [Pravachol] 80 mg PO QHS 03/10/18 busPIRone [Buspar] 5 mg PO BID 03/10/18 Amlodipine [Norvasc] 5 mg PO DAILY #30 tablet 03/13/18 Aspirin [Aspirin, Baby] 81 mg PO DAILY@0800 tab.chew 03/13/18 Cefadroxil [Duricef] 500 mg PO BID #14 capsule 03/13/18 Furosemide [Lasix] 40 mg PO DAILY #30 tablet 03/13/18 Gabapentin [Neurontin] 100 mg PO 0800,1500 #120 capsule 03/13/18 Insulin NPH Human [Humulin N Pen] 45 units SC BIDCM pen 03/13/18 Metoprolol Tartrate [Lopressor (beta stephen)] 25 mg PO BID #60 tablet 03/13/18 Nitroglycerin [Nitrostat] 0.4 mg SUBLINGUAL Q5M PRN #1 bottle 03/13/18 Potassium Chloride [K-Dur] 20 meq PO DAILY #30 tablet 03/13/18 Prednisone 10 mg PO DAILY #10 tablet 03/13/18 Following Prescrptions Were Given to Patient: Amlodipine [Norvasc] 5 mg PO DAILY #30 tablet Furosemide [Lasix] 40 mg PO DAILY #30 tablet Gabapentin [Neurontin] 100 mg PO 0800,1500 #120 capsule Nitroglycerin [Nitrostat] 0.4 mg SUBLINGUAL Q5M PRN #1 bottle PRN Reason: Cardiac/Chest Pain Potassium Chloride [K-Dur] 20 meq PO DAILY #30 tablet Prednisone 10 mg PO DAILY #10 tablet Cefadroxil [Duricef] 500 mg PO BID #14 capsule Metoprolol Tartrate [Lopressor (beta stephen)] 25 mg PO BID #60 tablet Primary Care Physician: Jeffrey Lopez MD [Primary Care Provider] - Please follow up with your Primary Care Physician in: 3-5 days Please Follow Up With: Femi Feng MD When: 2 weeks Disposition: Home Minutes spent on discharge:: 40 Patient Condition:: Good Medical Necessity - Tobacco Use Smoking Status: Never smoker Meaningful Use Info Meaningful Use Diagnoses (Choose all that apply): AMI, CHF - AMI Aspirin given w/in 24hrs of arrival?: Yes ASA at discharge?: Yes Statins at discharge?: Yes Rashel/ARB at discharge?: Yes Beta Stephen at discharge?: Yes Done w/ Acute SD measure.: Yes - CHF RASHEL/ARB ordered at discharge?: Yes Documented LVEF (%): 55 Code Visit Inpatient E&M: 89763 Disch Hosp
[2018-03-13] MEDS: Insulin Lispro 100 UNIT/ML INSULN.PEN 25 UNIT SC (12:59)
--- NOTE | 2018-03-15 12:23 | CASEMGMT ---
JOSE G ANN DC Phone Call Discharge Date: 03/13/17 DC PLAN: home Intro role of CM to patient via phone. Pt states she is doing well. No questions re: instructions or prescriptions. Will be making follow up appointments today, does not need assistance. No care improvement suggestions. JOSE G ANN thanked her for using [facility].
[2018-03-16 07:16] LABS: Bedside Glucose 427 mg/dL (70-110)
[2018-03-16 07:16] LABS: Bedside Glucose 408 mg/dL (70-110)
== END 2018-03-13 14:50 | disposition home or self-care (01) | DRG 246 ==
LOC: ED 17:27 → ICU 18:40
PROVIDERS: Hospitalist; Internal Medicine Cardiovascular Disease; Physician Assistant; Admitting Provider Family Medicine; Emergency Provider Emergency Medicine; Family Provider Family Medicine; PCP Family Medicine; Visit Provider Internal Medicine
DX: I21.4 Non-ST elevation (NSTEMI) myocardial infarction (principal); J96.21 Acute and chronic respiratory failure with hypoxia; I50.31 Acute diastolic (congestive) heart failure; I16.1 Hypertensive emergency; I13.0 Hypertensive heart and chronic kidney disease with heart failure and stage 1 through stage 4 chronic kidney disease, or unspecified chronic kidney disease; N18.4 Chronic kidney disease, stage 4 (severe); I25.810 Atherosclerosis of coronary artery bypass graft(s) without angina pectoris; N30.90 Cystitis, unspecified without hematuria; M06.9 Rheumatoid arthritis, unspecified; I27.20 Pulmonary hypertension, unspecified; Z99.81 Dependence on supplemental oxygen; G47.33 Obstructive sleep apnea (adult) (pediatric); E11.65 Type 2 diabetes mellitus with hyperglycemia; E11.22 Type 2 diabetes mellitus with diabetic chronic kidney disease; K21.9 Gastro-esophageal reflux disease without esophagitis; E66.9 Obesity, unspecified; M47.9 Spondylosis, unspecified; J45.40 Moderate persistent asthma, uncomplicated; E03.9 Hypothyroidism, unspecified; K58.9 Irritable bowel syndrome, unspecified; I25.10 Atherosclerotic heart disease of native coronary artery without angina pectoris; E78.5 Hyperlipidemia, unspecified; Z79.4 Long term (current) use of insulin; Z68.36 Body mass index [BMI] 36.0-36.9, adult; Z79.899 Other long term (current) drug therapy; Z95.1 Presence of aortocoronary bypass graft; Z95.5 Presence of coronary angioplasty implant and graft
CPT/HCPCS: 51702; 71045; 71046; 80048; 80061; 80076; 81001; 82947; 82962; 83036; 83605; 83735; 83880; 84100; 84484; 85025; 85027; 85347; 85610; 85730; 87040; 87077; 87086; 87088; 87449; 87633; 92937; 93005; 93306; 93455; 94002; 94640; 97802; 99152; 99153; 99285; C1760; J7030; J7050; Q9957; A4216; C1725; C1769; C1874; C1884; C1887; C1894; C8929; C9604; J1940; Q9967

== ENCOUNTER → 2018-04-08 09:24 | Outpatient (CLI) | payer MEDICARE, OTHER, SELFPAY ==
[2018-03-10 18:52] VITALS: BMI 36.1
== END ==
PROVIDERS: Family Provider Family Medicine; PCP Family Medicine; Referring Provider Internal Medicine Cardiovascular Disease; Visit Provider Internal Medicine Cardiovascular Disease
DX: I25.10 Atherosclerotic heart disease of native coronary artery without angina pectoris (principal); I49.9 Cardiac arrhythmia, unspecified; Z98.61 Coronary angioplasty status; Z95.1 Presence of aortocoronary bypass graft
CPT/HCPCS: 93225; 93226

== ENCOUNTER 2018-05-18 20:00 | Emergency (ER) | payer OTHER, MEDICARE, SELFPAY ==
[2018-04-09 12:46] VITALS: BMI 36.6
[2018-05-18 20:01] VITALS: BP 189/89; PULSE 72; RESP 18; TEMP 36.8; O2SAT 99; BMI 36.3
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
[2018-05-18 23:48] VITALS: BP 152/75; PULSE 68; RESP 16
== END 2018-05-18 23:50 | disposition home or self-care (01) ==
PROVIDERS: Emergency Provider Emergency Medicine; Family Provider Family Medicine; PCP Family Medicine
DX: S00.03XA Contusion of scalp, initial encounter (principal); S40.011A Contusion of right shoulder, initial encounter; S80.12XA Contusion of left lower leg, initial encounter; V43.62XA Car passenger injured in collision with other type car in traffic accident, initial encounter; Y93.89 Activity, other specified; Y92.410 Unspecified street and highway as the place of occurrence of the external cause; I25.10 Atherosclerotic heart disease of native coronary artery without angina pectoris; I11.0 Hypertensive heart disease with heart failure; I50.9 Heart failure, unspecified; I25.2 Old myocardial infarction; E11.9 Type 2 diabetes mellitus without complications; Z95.5 Presence of coronary angioplasty implant and graft; Z95.1 Presence of aortocoronary bypass graft; Z79.4 Long term (current) use of insulin; Z79.82 Long term (current) use of aspirin; Z79.899 Other long term (current) drug therapy
CPT/HCPCS: 70450; 73030; 73590; 99284

== ENCOUNTER → 2018-07-13 13:03 | Outpatient (CLI) | payer MEDICARE, OTHER, SELFPAY ==
[2018-07-13 13:48] LABS: Absolute Lymphocyte Count 1.59 X10^3/ul (0.83-4.51); Absolute Neutrophil Count 5.3 X10^3/uL (2.0-7.7); Basophil# 0.03 X10^3/uL; Basophil% 0.4 % (0-1); Eosinophils% 1.3 % (0-5); Hematocrit 40.4 % (37-47); Hemoglobin 12.8 g/dl (12.0-15.0); Lymphocyte # 1.59 X10^3/ul (4.0); Lymphocyte % 20.9 % (19-41); Mean Corp Hgb Conc 31.7 g/gl (32-36); Mean Corpuscular Volume 88.4 fL (81-99); Mean Platelet Vol. 10.5 fl (6.2-12.0); Monocyte# 0.52 X10^3/uL; Monocyte% 6.8 % (0-10); Neutrophil # 5.34 X10^3/uL (2.7-7.7); Neutrophil % 70.2 % (47-70); Platelet Count 194 K/mm3 (150-450); RBC Distribution Width CV 13.9 % (11.6-14.6); RBC Distribution Width SD 44.3 fl (35.1-43.9); Red Blood Count 4.57 M/mm3 (4.2-5.4); White Blood Count 7.6 K/mm3 (4.4-11.0)
[2018-07-13 13:51] LABS: POSITIVE COUNT NO; POSITIVE DIFFERENTIAL NO; POSITIVE MORPHOLOGY NO
[2018-07-13 13:59] LABS: Protein, Urine (Random) 8.5 mg/dL (<11.9); Protein:Creat Ratio 203 mg/g CRE (0-200)
[2018-07-13 14:14] LABS: Albumin, Serum 3.5 g/dL (3.2-5.0); BUN 28 mg/dL (7-18); BUN/Creat Ratio 19.9 RATIO (10-20); Calcium,Total 9.2 mg/dL (8.5-10.1); Chloride 99 mmol/L (98-107); Creatinine, Serum 1.41 mg/dL (0.55-1.02); EST Glomerular Filtration Rate 38 mL/min (>60); Est Glom Filt Rate - Afr Amer 47 mL/min (>60); Glucose 292 mg/dL (74-106); Phosphorus 3.8 mg/dL (2.5-4.9); Potassium 4.4 mmol/L (3.5-5.1); Sodium Level 139 mmol/L (136-145)
== END ==
PROVIDERS: Family Provider Family Medicine; PCP Family Medicine; Referring Provider Internal Medicine Nephrology; Visit Provider Internal Medicine Nephrology
DX: N18.3 Chronic kidney disease, stage 3 (moderate) (principal); R60.9 Edema, unspecified
CPT/HCPCS: 36415; 80069; 82570; 84156; 85025

== ENCOUNTER 2018-11-10 20:34 | Observation (INO) | payer MEDICARE, OTHER, SELFPAY ==
[2018-08-10 12:18] VITALS: BMI 35.9
[2018-11-10 20:35] VITALS: BP 142/67; PULSE 85; RESP 28; TEMP 37.1; O2SAT 95; BMI 36.1
--- NOTE | 2018-11-10 21:03 | EKG12_ITS ---
Test Reason : Blood Pressure : / mmHG Vent. Rate : 088 BPM Atrial Rate : 088 BPM P-R Int : 186 ms QRS Dur : 114 ms QT Int : 354 ms P-R-T Axes : -12 -04 120 degrees QTc Int : 428 ms Normal sinus rhythm Nonspecific ST and T wave abnormality Abnormal ECG Confirmed by SY DANIELLE ([id number]), editor managing newspaper PADDY CHUNG ([id number]) on 11/15/2018 2:41:35 PM Referred By: Bruce Peoples Confirmed By:SY DANIELLE
[2018-11-10 21:24] VITALS: O2SAT 97
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
[2018-11-10] MEDS: Aspirin 325 MG Tablet PO (22:15)
[2018-11-10 22:34] VITALS: BP 160/60; PULSE 77; RESP 22; O2SAT 98
[2018-11-10 22:37] LABS: Absolute Lymphocyte Count 1.43 X10^3/uL (0.83-4.51); Absolute Neutrophil Count 7.1 X10^3/uL (2.0-7.7); Basophil# 0.03 X10^3/uL; Basophil% 0.3 % (0-1); Eosinophil# 0.17 X10^3/uL; Eosinophils% 1.8 % (0-5); Hematocrit 39.5 % (37-47); Hemoglobin 12.3 g/dL (12.0-15.0); Lymphocyte # 1.43 X10^3/ul (4.0); Lymphocyte % 15.1 % (19-41); Mean Corp Hgb Conc 31.1 g/dL (32-36); Mean Corpuscular Hgb 28.3 pg (27.0-32.0); Mean Corpuscular Volume 90.8 fL (81-99); Mean Platelet Vol. 10.7 fl (6.2-12.0); Monocyte# 0.68 X10^3/uL; Monocyte% 7.2 % (0-10); NRBC Flagged by Analyzer 0 % (0-5); Neutrophil # 7.13 X10^3/uL (2.7-7.7); Platelet Count 212 K/mm3 (150-450); RBC Distribution Width CV 12.8 % (11.6-14.6); RBC Distribution Width SD 42.2 fl (35.1-43.9); Red Blood Count 4.35 M/mm3 (4.2-5.4); White Blood Count 9.5 K/mm3 (4.4-11.0)
[2018-11-10 22:49] LABS: Anion Gap 4 (5-15); BUN 23 mg/dL (7-18); BUN/Creat Ratio 16.5 RATIO (10-20); Calcium,Total 9.7 mg/dL (8.5-10.1); Chloride 102 mmol/L (98-107); Creatinine, Serum 1.39 mg/dL (0.55-1.02); EST Glomerular Filtration Rate 39 mL/min (>60); Est Glom Filt Rate - Afr Amer 47 mL/min (>60); Estimated Creatinine Clearance 28.04 ml/min; Glucose 233 mg/dL (74-106); Potassium 3.9 mmol/L (3.5-5.1); Sodium Level 140 mmol/L (136-145)
--- NOTE | 2018-11-10 22:56 | ED.VISSUMM ---
- ER Visit Summary Date of Service: 11/10/18 Chief Complaint: Chest pain, shortness of breath History of Present Illness: The patient is a 78 F presenting with chest pain, shortness of breath. This has been ongoing for the past 2 days. Patient states her symptoms are worsened with exertion. States when she tries to walk she has midsternal chest heaviness, shortness of breath and fatigue. Currently at rest she has no chest pain. She is not a smoker. She has a history of CAD, CHF, diabetes, hypertension, asthma. She states she did miss one dose of her Lasix yesterday. Physical Examination: Vitals are stable. Patient is afebrile. Alert no acute distress. HEENT exam is unremarkable. Neck is supple. Lungs are clear and equal bilaterally. Heart is regular rate and rhythm. Abdomen is soft nontender nondistended. Extremities symmetric edema Skin is warm and dry. No focal neurologic deficit. Remainder of exam is unremarkable. Emergency Department Course and Treatment: Patient was given aspirin on arrival. EKG is sinus rate of 88 with no acute ischemic changes. Chest x-ray shows no acute process. CBC, chemistries unremarkable other than glucose 233, BUN 23, creatinine 1.39. Troponin is negative. On reevaluation, she is resting comfortably and is chest pain-free. Discussed with the hospitalist for observation. Disposition: Observation Impression: Chest pain This note was generated with Syncurity dictation software. It may contain incorrect words, spelling, and punctuation that were not noted in review of the chart prior to signing ED Disposition - Plan for ED Patient: Referrals: Jeffrey Lopez MD [Primary Care Provider] -
[2018-11-10 23:05] LABS: BNP,B-Type NATRIURETIC PEPTIDE 199.9 pg/mL (0-100)
--- NOTE | 2018-11-10 23:45 | HP.PCM_ITS ---
Problem List (1) Chest pain Status: Acute (2) Chronic renal failure, stage 4 (severe) Status: Chronic History of Present Illness Date of Admission: 11/10/18 Chief Complaint: chest pain The patient is a 78 year old F with a significant history of ischemic cardiomyopathy; CAD status post CABG and coronary stent; CKD stage IV; type 2 diabetes; rheumatoid arthritis; and obstructive sleep apnea who presented to [facility] department with chest pain that has been going on for about 2 days. She describes her chest pain as heaviness. Her chest pain comes with minimal exertion and is relieved with rest. Associated with her symptoms is shortness of breath. His pain is nonradiating. She denies any nausea, vomiting or diaphoresis. Also patient reports some increased bilateral leg edema which is now close to i ts baseline. Reportedly the water system in a house was shut down so she deliberately skipped her dose of her Lasix which she made up for after several hours. She thinks that with resuming her Lasix her edema has improved but not to her baseline. Importantly patient was admitted on 03/10/2018 and discharged on 03/13/2018 with non-ST elevation UT where she spent some time at the ICU and had a percutaneous angioplasty/drug eluding stent to the saphenous vein graft to OM1 and OM 2. Her last cardiac visit visit was on 08/10/[address] Magana,chainstitch zipper setter. On the last cardiology visit it was noted that she had some occasional chest discomfort but because she could not tolerate isosorbide, amlodipine was prescribed. She reported that previously after a nuclear stress test she became very sick. Past Medical History Past Medical History (Chronic Problems): Chronic Problems (Last Reviewed 11/11/18 @ 02:37 by Bruce Peoples MD) Secondary pulmonary arterial hypertension (Chronic) Acute on chronic diastolic (congestive) heart failure (Chronic) Chronic renal failure, stage 4 (severe) (Chronic) Atherosclerosis 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 angina pectoris (Chronic) PCI/MONSE SVG-PDA 11/2012: MONSE to SVG OM1/OM2 using 3.5 X 12 Promus Synergy, 03/12/2018 CABG x 4-DENISE-LAD, SVG-Mid PDA and second posterior descending septal coverstitch binder, SVG-OM1 and OM2 2000 Dyslipidemia (Chronic) Benign essential hypertension (Chronic) Medical History: Medical History (Last Reviewed 11/11/18 @ 07:00 by Bruce Peoples MD) Secondary pulmonary arterial hypertension (Chronic) I27.21 Acute on chronic diastolic (congestive) heart failure (Chronic) I50.33 Chronic renal failure, stage 4 (severe) (Chronic) N18.4 NSTEMI (non-ST elevated myocardial infarction) (Resolved) Onset Date: 03/10/18 I21.4 Atherosclerosis 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 angina pectoris (Chronic) I25.810 PCI/MONSE SVG-PDA 11/2012: MONSE to SVG OM1/OM2 using 3.5 X 12 Promus Synergy, 03/12/2018 CABG x 4-DENISE-LAD, SVG-Mid PDA and second posterior descending septal coverstitch binder, SVG-OM1 and OM2 2000 Dyslipidemia (Chronic) E78.5 Benign essential hypertension (Chronic) I10 Asthma J45.909 GERD (gastroesophageal reflux disease) K21.9 Hypothyroidism E03.9 IBS (irritable bowel syndrome) K58.9 Obstructive sleep apnea G47.33 Rheumatoid arthritis M06.9 TIA (transient ischemic attack) G45.9 Type 2 diabetes mellitus E11.9 Asthma with acute exacerbation (Resolved) J45.901 History of non-ST elevation myocardial infarction (NSTEMI) (Resolved) I25.2 Hypercapnia (Resolved) R06.89 Ischemic cardiomyopathy I25.5 Acute respiratory failure with hypoxia (Ruled-out) J96.01 Allergies simvastatin [From Zocor] Allergy (Verified 11/10/18 20:34) Unknown lisinopril Adverse Reaction (Severe, Verified 11/10/18 20:34) cough oxycodone [From Percocet] Adverse Reaction (Severe, Verified 11/10/18 20:34) Bad Dreams acetaminophen [From Vicodin] Adverse Reaction (Verified 11/10/18 20:34) Vomiting hydrocodone bitartrate [From Vicodin] Adverse Reaction (Verified 11/10/18 20:34) Vomiting AMMONIUM LACTATE Allergy (Uncoded 11/10/18 20:34) Rash Home Medications: Ambulatory Orders Medication Instructions Recorded Omeprazole [Prilosec] 40 mg PO DAILY 08/23/13 Budesonide Aerosol [Pulmicort 0.25 mg INHALATION DAILY 04/11/14 Respules] Albuterol Aerosols [Ventolin 2.5 mg INHALATION Q6H PRN PRN 04/02/17 Aerosols] Insulin Regular, Human [Humulin R] 41 unit SQ BID 05/10/17 Calcitriol [Rocaltrol] 0.25 mcg PO DAILY 05/17/17 Allopurinol 100 mg PO BID 03/10/18 Insulin NPH Human [Humulin N Pen] 46 units SUBCUT BID 03/10/18 Oxygen, Home [Home Oxygen] 3 lpm NASAL DAILY 03/10/18 Pravastatin [Pravachol] 80 mg PO QHS 03/10/18 Nitroglycerin (INPATIENT USE) 0.4 mg SUBLINGUAL Q5M PRN #1 bottle 03/13/18 [Nitrostat] clopidogrel 75 mg tablet 75 mg PO DAILY #90 tab 04/09/18 furosemide 40 mg tablet 40 mg PO DAILY #90 tab 05/07/18 amlodipine 5 mg tablet 5 mg PO DAILY #90 tab 08/10/18 lorazepam 0.5 mg tablet 0.5 mg PO BID PRN 10 Days #20 tab 08/10/18 Metoprolol Tartrate [Lopressor 25 mg PO BID 11/10/18 (beta meredith)] Aspirin [Aspirin, Baby] 81 mg PO DAILY@0800 11/11/18 Surgical History: Surgical History (Last Reviewed 11/11/18 @ 07:00 by Bruce Peoples MD) H/O coronary artery bypass surgery (Resolved) Onset Date: 2000 Z95.1 CABG x 5-DENISE-LAD, SVG-Mid PDA and second posterior descending septal coverstitch binder, SVG-OM1 and OM2 2000 History of coronary artery stent placement (Resolved) Onset Date: 03/12/18 Z95.5 PCI/MONSE MID SVG-PDA w/ 3.0 x 38 mm and TDO-Oseu-JPB-PDA w/ 3.5 x 12 mm Promus Elememt 11/09/2012: MONSE to SVG OM1/OM2 using 3.5 X 12 Promus Synergy, 03/12/2018 History of section Z98.891 History of cholecystectomy Z90.49 Hx of appendectomy Z90.49 Surgical History: noncontributory, angioplasty, - Psychiatric History: No pertinent psych hx 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 Smoking Status: Never smoker - *Family History Paternal Family History: Family History (Last Reviewed 11/11/18 @ 07:00 by Bruce Peoples MD) Mother CAD (coronary artery disease) Daughter CAD (coronary artery disease) Abdominal aortic aneurysm (AAA) History Items: No pertinent history Sibling Family History: Family History (Last Reviewed 11/11/18 @ 07:00 by Bruce Peoples MD) Mother CAD (coronary artery disease) Daughter CAD (coronary artery disease) Abdominal aortic aneurysm (AAA) History Items: Cancer, Diabetes, Heart Disease Maternal Family History: Family History (Last Reviewed 11/11/18 @ 07:00 by Bruce Peoples MD) Mother CAD (coronary artery disease) Daughter CAD (coronary artery disease) Abdominal aortic aneurysm (AAA) History Items: No pertinent history Review of Systems Constitutional: Reports: Weight Change - Patient thinks she has lost about 2 pounds.. Denies: Chills, Fever HEENT: Denies: Head Aches, Sinus Congestion, Sinus Drainage Cardiovascular: Reports: Heaviness. Denies: Palpitations Respiratory: Reports: Shortness of breath upon exertion. Denies: Cough, Sputum production Gastrointestinal: Reports: Abdominal Pain - R flank pain. Denies: Nausea, Vomiting Genitourinary: Denies: Dysuria Musculoskeletal: Denies: Joint Pain, Joint Tenderness Skin: Denies: Rash, Wounds Neurological: Denies: Numbness, Tingling, Focal weakness Psychiatric: Denies: Anxiety, Depression, Homicidal Ideations, Suicidal Ideations Hematologic/ Lymphatic: Denies: Easy Bruising, Easy Bleeding VTE Information - Inpt Only VTE Present on Admission: No VTE Mechan Device Prophylaxis: SCD's VTE Pharm Prophylaxis ordered?: No Patient Problems: Active and Suspected Problems (Last Reviewed 11/11/18 @ 02:37 by Bruce Peoples MD) Chest pain (Acute) - Physical Exam General: Alert, Oriented x3, Cooperative HEENT: Atraumatic, PERRLA, EOMI, Normocephalic Neck: Supple, No JVD, Negative Carotid Bruits Lungs: Clear to auscultation, Normal air movement, Tachypneic Cardiovascular: Regular rate, No murmurs Abdomen: Bowel Sounds Present, Soft, Non Tender, Obese Extremities: Capillary Refill Less than 3 Seconds, Edema - +1 to +2 bilateral lower extremities Skin: No rashes, No breakdown Musculoskeletal: No Tenderness to Palpation of Joints or Extremities Neurological: Cranial nerves II-XII grossly intact Psych/Mental Status: Normal Affect, Appropriate Vital Signs Temp Pulse Resp BP Pulse Ox 98.7 F 77 22 H 160/60 H 98 11/10/18 20:35 11/10/18 22:34 11/10/18 22:34 11/10/18 22:34 11/10/18 22:34 Oxygen Flow Rate (L/min) 2 Oxygen Delivery Method Nasal Cannula Weight: 92.5 kg Body Mass Index (BMI) 36.1 Finger Stick Blood Glucose 169 Laboratory Tests Past 24 Hrs 11/10/18 11/10/18 11/10/18 21:10 21:10 21:10 WBC 9.5 RBC 4.35 Hgb 12.3 Hct 39.5 MCV 90.8 MCH 28.3 MCHC 31.1 L RDW Std Deviation 42.2 RDW Coeff of Lea 12.8 Plt Count 212 MPV 10.7 Immature Gran % (Auto) 0.600 Neut % (Auto) 75.0 H Lymph % (Auto) 15.1 L [place] % (Auto) 7.2 Eos % (Auto) 1.8 Baso % (Auto) 0.3 Absolute Neuts (auto) 7.1 Absolute Lymphs (auto) 1.43 Nucleated RBC % 0 Sodium 140 Potassium 3.9 Chloride 102 Carbon Dioxide 34.0 H Anion Gap 4 L BUN 23 H Creatinine 1.39 H Estim Creat Clear Calc 28.04 Est GFR (MDRD) Af Amer 47 L Est GFR (MDRD) Non-Af 39 L BUN/Creatinine Ratio 16.5 Glucose 233 H Calcium 9.7 Troponin I < 0.015 B-Natriuretic Peptide 199.9 H Assessment/Plan All Active Problems (Last Reviewed 11/11/18 @ 02:37 by Bruce Peoples MD) Chest pain (Acute) H/O coronary artery bypass surgery (Resolved 2000) History of coronary artery stent placement (Resolved 03/12/18) NSTEMI (non-ST elevated myocardial infarction) (Resolved 03/10/18) Asthma with acute exacerbation (Resolved) Community acquired pneumonia (Resolved) History of non-ST elevation myocardial infarction (NSTEMI) (Resolved) Hypercapnia (Resolved) Hypertensive emergency (Resolved) RSV infection (Resolved) Acute respiratory failure with hypoxia (Ruled-out) The patient is a 78 year old F with a significant history of ischemic cardiomyopathy; CAD status post CABG and coronary stent; CKD stage IV; type 2 diabetes; rheumatoid arthritis; and obstructive sleep apnea and was admitted on 03/10/2018 and discharged on 03/13/2018 with non-ST elevation UT and spent some time at the ICU and had a percutaneous angioplasty/drug eluding stent to the saphenous vein graft to OM1 and OM 2 present with chest heaviness and shortness of breath with minimal exertion. Chest pain Admit to a monitored bed on PCU CXR independently reviewed confirms no acute cardiopulmonary process. EKG independently reviewed confirms nonspecific ST and T wave abnormalities which are unchanged from previous. Received aspirin 324 mg in emergency department. ASA 81 mg p.o. daily continued. Plavix continued SL NTG 0.4 mg prn as needed for chest pain Morphine as needed for pain We will check lipid panel. Statin: On home pravastatin; continued Serial cardiac enzymes Stat EKG as needed for chest painDVT prophylaxis ordered. Dobutamine Stress test in the AM if the cardiac enzymes remains about the same Consider discussing the case with , chainstitch zipper setter since patient saw Dr. Magana in August of this year. Ischemic cardiomyopathy Echocardiogram on 03/11/2018 showed mildly dilated left ventricle. Segmental dysfunction with preserved ejection fraction. Estimated ejection fraction was 55%. Patient had a posterior basal hypokinesia; inferior basal was akinetic. Basal inferoseptal was hypokinetic. Mid inferior was hypokinetic; and inferior apex was hypokinetic. Lasix continued. Home oxygen continued CAD status post CABG and stent Management as above. Diabetes mellitus On presentation her blood glucose was not within goal. Will de-escalate NPH since patient will be n.p.o. At home patient takes regular insulin 41 units prandial twice daily. Will put patient on correction scale insulin. Hypertension On presentation her blood pressure was not within goal Amlodipine and metoprolol continued Lasix continued Trend blood pressure and adjust blood pressure medication. Sleep apnea CPAP with oxygen bled in; continue. DVT prophylaxis SCD ordered for now. No chemical thromboprophylaxis because patient will be having stress test in a.m. If patient ends up staying for more than one day consider chemical thromboprophylaxis. Code Visit OBSV E&M: 00435 Initial observation care L3
[2018-11-11] VITALS (11 sets, daily range): BP systolic 148–156; BP diastolic 46–86; PULSE 72–81; RESP 16–22; TEMP 36.7–36.8; O2SAT 96–98; BMI 36.0
--- NOTE | 2018-11-11 02:05 | ECHOCS_ITS ---
Reason For Study: CHEST PAIN Procedure This was a 2D Doppler, Color Flow transthoracic echocardiogram. The study was technically difficult. Due to body habitus. Contrast injection was performed. Left Ventricle Normal size and thickness. The estimated ejection fraction is 65 %. Diastolic function is indeterminate. No regional wall motion abnormalities noted. Right Ventricle Normal RV size. Normal systolic function. Atria Normal left atrium. Normal right atrium. No doppler evidence for ASD. Mitral Valve There is no mitral valve stenosis. No mitral valve insufficiency. Tricuspid Valve There is no tricuspid stenosis. Unable to estimate RV systolic pressure due to inadequate jet, pulmonary artery pressure probably normal. Aortic Valve There is no aortic stenosis. No aortic valve insufficiency. Pulmonic Valve There is no pulmonic valvular stenosis. Mild pulmonic valve insufficiency identified. Great Vessels Normal aortic root. Pericardium/Pleural No pericardial effusion. Medication Diluted definity 1.0ml given slow IV push to enhance endocardial definition. MMode/2D Measurements & Calculations LVIDd: 5.1 cm IVSd: 0.95 cm Ao root diam: 2.8 cm LVIDs: 3.6 cm LVPWd: 0.98 cm RVDd: 3.0 cm FS: 28.8 % LAV(MOD-bp): 61.6 ml LA A4 area: 19.6 cm2 LA dimension(2D): 4.0 cm LAV(MOD-bp) Indexed: 31.7 ml/m2 LAV(MOD-sp2): 59.8 ml LAV(MOD-sp4): 58.3 ml Time Measurements MV dec time: 0.17 sec Doppler Measurements & Calculations MV E max doug: 123.0 cm/sec Lat Peak E' Doug: 5.0 cm/sec Med Peak E' Doug: 4.0 cm/sec MV A max doug: 85.3 cm/sec E/E' lat: 24.8 E/E' med: 30.7 MV E/A: 1.4 Ao V2 max: 151.7 cm/sec LV V1 max: 131.6 cm/sec PA V2 max: 137.0 cm/sec Ao max P.2 mmHg LV V1 max P.9 mmHg Interpretation Summary The study was technically difficult. Diluted definity 1.0ml given slow IV push to enhance endocardial definition. The estimated ejection fraction is 65 %. Diastolic function is indeterminate. The study was technically difficult. Ordering Physician: Bruce Peoples Referring Physician: Jeffrey Lopez Performed By: Deanna Marti, NICHOLAS, RVT
--- NOTE | 2018-11-11 02:05 | EKG12_ITS ---
Test Reason : CP ADMIT Blood Pressure : / mmHG Vent. Rate : 073 BPM Atrial Rate : 073 BPM P-R Int : 178 ms QRS Dur : 124 ms QT Int : 422 ms P-R-T Axes : 086 020 123 degrees QTc Int : 464 ms Sinus rhythm with Premature atrial complexes Non-specific intra-ventricular conduction delay Nonspecific ST and T wave abnormality Abnormal ECG When compared with ECG of 13-MAR-2018 05:10, Previous ECG has undetermined rhythm, needs review T wave inversion no longer evident in Lateral leads Confirmed by RISSA CURRY, WILBUR ([id number]), editorial project manager PADDY CHUNG ([id number]) on 11/15/2018 3:15:36 PM Referred By: Bruce Peoples Confirmed By:MARGE KWOK MD
[2018-11-11] MEDS: Insulin NPH Human 100 UNITS/ML PEN 20 UNITS SC ×2 (03:00→12:24)
[2018-11-11 03:05] LABS: Bedside Glucose 205 mg/dL (70-110)
--- NOTE | 2018-11-11 05:55 | STEWCON_ITS ---
Reason For Study: Chest Pain Stress Results Protocol: Dobutamine Stress Echo Maximum Predicted HR: 143 bpm Target HR: 122 bpm % Maximum Predicted HR: 85 % DurationHeart Rate Stage (mm:ss) (bpm) BP Comment Baseline 83 169/80No Chest Pain; Diluted Definity 6 ML Given DSE 10 MCG 4:15 93 162/80No Chest Pain DSE 20 MCG 3:41 122 154/63No Chest Pain Recovery 93 155/74No Chest Pain Stress Duration: 7:56 mm:ss Maximum Stress HR: 122 bpm METS: 1 Baseline Echocardiogram Findings The estimated ejection fraction is 55 %. Normal systolic function. Stress Echo Wall motion Data Resting WM Intermediate WM Stress WM Resting Wall Motion Wall Motion Int. Wall Motion Stress No regional wall motion No regional wall motion No regional wall motion abnormalities noted. abnormalities noted. abnormalities noted. EKG Data Normal sinus rhythm. Poor R wave progression in the anterior leads. During dobutamine infusion, there were no ST or T wave changes noted to suggest ischemia. Frequent PVCs and PACs with dobutamine infusion. Symptoms with Stress The patient experinced none . Interpretation Summary The estimated ejection fraction is 55 %. No dobutamine stress induced CP, EKG or echocardiographic changes of ischemia. Contrast injection was performed. Ordering Physician: Bruce Peoples Referring Physician: Dipesh Dia MD Performed By: Erika Mcdowell RDCS
[2018-11-11] MEDS: Clopidogrel Bisulfate 75 MG Tablet PO (06:47)
[2018-11-11] MEDS: Aspirin E.C. 81 MG Tablet PO (06:47)
[2018-11-11 06:50] LABS: Bedside Glucose 182 mg/dL (70-110)
[2018-11-11 12:15] LABS: Bedside Glucose 244 mg/dL (70-110)
--- NOTE | 2018-11-11 12:23 | CASEMGMT ---
LW/POA not on file, pt had indicated wanted additional information in regard to LW/POA. SW reviewed LW/POA forms w/pt, and gave her blank forms. SW also gave her a rack card with the social work department number, and explained to pt that when she is ready, she can call the SW department to set up a time to meet w/a social work faculty member, as an outpt, to complete the forms. Pt states understanding. LAVERNE Culp
[2018-11-11] MEDS: Insulin Lispro 100 UNIT/ML INSULN.PEN SC (12:31)
--- NOTE | 2018-11-11 12:41 | NURSING ---
Pt refusing all medications. States to this RN that she will take them when she get home because insurance won't cover cost of meds here per pt.
--- NOTE | 2018-11-11 13:11 | DCINST_ITS ---
- Discharge Diagnoses Current Active Problems: Current Active and Chronic Problems (Last Reviewed 11/11/18 @ 07:00 by Bruce Peoples MD) Chest pain (Acute) You will use the following diet at home:: Cardiac Your food should be the consistency of: Regular Discharge Activity: Return to Normal Activity Weight Bearing Status: Weight bearing as tolerated Call your doctor if you observe: Fever of 101 or Higher, Shortness of breath, Dizziness, Fainting spells, Chest pain, Increased palpitations (irregular heartbeat), Uncontrolled pain Allergies/Adverse Reactions: Allergies simvastatin [From Zocor] Allergy (Verified 11/10/18 20:34) Unknown lisinopril Adverse Reaction (Severe, Verified 11/10/18 20:34) cough oxycodone [From Percocet] Adverse Reaction (Severe, Verified 11/10/18 20:34) Bad Dreams acetaminophen [From Vicodin] Adverse Reaction (Verified 11/10/18 20:34) Vomiting hydrocodone bitartrate [From Vicodin] Adverse Reaction (Verified 11/10/18 20:34) Vomiting AMMONIUM LACTATE Allergy (Uncoded 11/10/18 20:34) Rash Medications to take at Discharge Omeprazole [Prilosec] 40 mg PO DAILY 08/23/13 Budesonide Aerosol [Pulmicort Respules] 0.25 mg INHALATION DAILY 04/11/14 Albuterol Aerosols [Ventolin Aerosols] 2.5 mg INHALATION Q6H PRN PRN 04/02/17 Insulin Regular, Human [Humulin R] 41 unit SQ BID 05/10/17 Calcitriol [Rocaltrol] 0.25 mcg PO DAILY 05/17/17 Allopurinol 100 mg PO BID 03/10/18 Insulin NPH Human [Humulin N Pen] 46 units SUBCUT BID 03/10/18 Oxygen, Home [Home Oxygen] 3 lpm NASAL DAILY 03/10/18 Pravastatin [Pravachol] 80 mg PO QHS 03/10/18 Nitroglycerin (INPATIENT USE) [Nitrostat] 0.4 mg SUBLINGUAL Q5M PRN #1 bottle 03/13/18 clopidogrel 75 mg tablet 75 mg PO DAILY #90 tab 04/09/18 furosemide 40 mg tablet 40 mg PO DAILY #90 tab 05/07/18 amlodipine 5 mg tablet 5 mg PO DAILY #90 tab 08/10/18 lorazepam 0.5 mg tablet 0.5 mg PO BID PRN 10 Days #20 tab 08/10/18 Metoprolol Tartrate [Lopressor (beta meredith)] 25 mg PO BID 11/10/18 Aspirin [Aspirin, Baby] 81 mg PO DAILY@0800 11/11/18 Primary Care Physician: Jeffrey Lopez MD [Primary Care Provider] - Please follow up with your Primary Care Physician in: 1 WEEK. Test Results: Test results from this visit will be discussed in further detail at your follow- up appointment, if applicable.
--- NOTE | 2018-11-11 13:46 | PCM.DC.SUM ---
Discharge Date and Diagnosis - Problem List Patient Problems: Active and Suspected Problems (Last Reviewed 11/11/18 @ 07:00 by Bruce Peoples MD) Chest pain (Acute) Date of Admission: 11/10/18 Date of Discharge: 11/11/18 - Primary Discharge Diagnosis Active and Suspected Problems (Last Reviewed 11/11/18 @ 07:00 by Bruce Peoples MD) atypical chest pain/heaviness, shortness of breath. ACS ruled out, no evidence of acute CHF. - Secondary Discharge Diagnosis Chronic Problems (Last Reviewed 11/11/18 @ 07:00 by Bruce Peoples MD) Secondary pulmonary arterial hypertension (Chronic) Acute on chronic diastolic (congestive) heart failure (Chronic) Chronic renal failure, stage 4 (severe) (Chronic) Atherosclerosis 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 angina pectoris (Chronic) PCI/MONSE SVG-PDA 11/2012: MONSE to SVG OM1/OM2 using 3.5 X 12 Promus Synergy, 03/12/2018 CABG x 4-DENISE-LAD, SVG-Mid PDA and second posterior descending septal presser first, SVG-OM1 and OM2 2000 Dyslipidemia (Chronic) Benign essential hypertension (Chronic) Hospital Course and Treatment Imaging Results: 11/11/18 05:55 Stress Test Echo W/Contrast [ECHO] AM (NON MEDS) Clinical Impression(s) from Imaging Studies Chest X-Ray 11/10/18 22:07 IMPRESSION: No acute cardiopulmonary process. Electronically Signed: Daniela Sullivan MD at 22:36 EDT Tel , Service support , Operations: None Procedures: 2-D Echocardiogram, EKG, - - Stress echocardiogram. Summary of Care Provided: Patient seen and examined on the day of discharge and appeared to be stable to be discharged home. She denies any more chest heaviness or pain and shortness of breath improved. She did mention that she did not take Lasix for 1 day in the last several days because she had renovation of the bathroom at her house. Today, her vital signs are stable and she remained on 3 L of oxygen which is her baseline at home. The patient is a 78 year old F admitted because of symptoms of increasing shortness of breath and chest heaviness. Her EKG revealed normal sinus rhythm without evidence of acute ischemic changes. Her troponin was negative x4. Chest x-ray showed no acute findings. Her routine blood work was remarkable for chronically elevated creatinine which was stable at baseline. Her BNP was slightly elevated but that has been chronic and actually, it is lower than her baseline. There was no evidence of acute CHF. Patient underwent stress echocardiogram that showed no evidence of acute ischemic changes during the dobutamine infusion, patient had no symptoms and there was no stress-induced EKG or echocardiographic changes of ischemia. ACS ruled out. Transthoracic 2D echocardiogram also done during this hospital stay and it is pending at the time of discharge. Patient discharged home in a stable medical condition, continued on her previous home medications without any changes including daily Lasix, however recommended to adhere with her medications including her diuretics, recommended follow-up with PCP in 1 week. Patient Problems: Active and Suspected Problems (Last Reviewed 11/11/18 @ 07:00 by Bruce Peoples MD) Chest pain (Acute) - Physical Exam General: Alert, Oriented x3, Cooperative, No apparent distress HEENT: Atraumatic, PERRLA, EOMI, Normocephalic Oral: Moist Mucosa, No Gingival or Mucosal Lesions/ Ulcerations Neck: Supple, No JVD, Negative Carotid Bruits, Trachea Midline, Thyroid Normal Size and Texture Lungs: Clear to auscultation, Normal air movement, No rhonchi, No wheeze, No rales, Diminished Cardiovascular: Regular rate, Regular Rhythm, Normal S1, Normal S2, PMI Normal Abdomen: Bowel Sounds Present, Soft, Non Tender, Non-Distended, No Hepato-splenomegaly Extremities: No clubbing, No cyanosis, Edema - Trace edema. Skin: No rashes, No breakdown Lymphatic: No Cervical, Supraclavicular, or Inguinal Adenopathy Neurological: Cranial nerves II-XII grossly intact, Neuro grossly intact Psych/Mental Status: Normal Affect, Appropriate Vital Signs Temp Pulse Resp BP Pulse Ox 98.0 F 80 16 156/72 H 98 11/11/18 12:20 11/11/18 12:41 11/11/18 12:20 11/11/18 12:20 11/11/18 12:20 Oxygen Flow Rate (L/min) 3 Oxygen Delivery Method Nasal Cannula Weight: 203 lb 4.259 oz Body Mass Index (BMI) 36.0 Finger Stick Blood Glucose 169 Intake and Output for Last 24 Hours 11/09/18 11/10/18 11/11/18 23:59 23:59 23:59 Intake Total 0 / 0 Balance 0 / 0 Laboratory Tests Past 24 Hrs 11/10/18 11/10/18 11/10/18 21:10 21:10 21:10 WBC 9.5 RBC 4.35 Hgb 12.3 Hct 39.5 MCV 90.8 MCH 28.3 MCHC 31.1 L RDW Std Deviation 42.2 RDW Coeff of Lea 12.8 Plt Count 212 MPV 10.7 Immature Gran % (Auto) 0.600 Neut % (Auto) 75.0 H Lymph % (Auto) 15.1 L [place] % (Auto) 7.2 Eos % (Auto) 1.8 Baso % (Auto) 0.3 Absolute Neuts (auto) 7.1 Absolute Lymphs (auto) 1.43 Nucleated RBC % 0 Sodium 140 Potassium 3.9 Chloride 102 Carbon Dioxide 34.0 H Anion Gap 4 L BUN 23 H Creatinine 1.39 H Estim Creat Clear Calc 28.04 Est GFR (MDRD) Af Amer 47 L Est GFR (MDRD) Non-Af 39 L BUN/Creatinine Ratio 16.5 Glucose 233 H Calcium 9.7 Troponin I < 0.015 B-Natriuretic Peptide 199.9 H 11/11/18 11/11/18 11/11/18 02:30 05:09 08:17 WBC RBC Hgb Hct MCV MCH MCHC RDW Std Deviation RDW Coeff of Lea Plt Count MPV Immature Gran % (Auto) Neut % (Auto) Lymph % (Auto) [place] % (Auto) Eos % (Auto) Baso % (Auto) Absolute Neuts (auto) Absolute Lymphs (auto) Nucleated RBC % Sodium Potassium Chloride Carbon Dioxide Anion Gap BUN Creatinine Estim Creat Clear Calc Est GFR (MDRD) Af Amer Est GFR (MDRD) Non-Af BUN/Creatinine Ratio Glucose Calcium Troponin I 0.018 0.017 0.017 B-Natriuretic Peptide POC Glucose 11/11/18 11/11/18 11/11/18 12:13 06:42 02:58 POC Glucose 244 H 182 H 205 H Discharge Activity: Return to Normal Activity Weight Bearing Status: Weight bearing as tolerated Call your doctor if you observe: Fever of 101 or Higher, Shortness of breath, Dizziness, Fainting spells, Chest pain, Increased palpitations (irregular heartbeat), Uncontrolled pain Home Medications: Medications to take at Discharge Omeprazole [Prilosec] 40 mg PO DAILY 08/23/13 Budesonide Aerosol [Pulmicort Respules] 0.25 mg INHALATION DAILY 04/11/14 Albuterol Aerosols [Ventolin Aerosols] 2.5 mg INHALATION Q6H PRN PRN 04/02/17 Insulin Regular, Human [Humulin R] 41 unit SQ BID 05/10/17 Calcitriol [Rocaltrol] 0.25 mcg PO DAILY 05/17/17 Allopurinol 100 mg PO BID 03/10/18 Insulin NPH Human [Humulin N Pen] 46 units SUBCUT BID 03/10/18 Oxygen, Home [Home Oxygen] 3 lpm NASAL DAILY 03/10/18 Pravastatin [Pravachol] 80 mg PO QHS 03/10/18 Nitroglycerin (INPATIENT USE) [Nitrostat] 0.4 mg SUBLINGUAL Q5M PRN #1 bottle 03/13/18 clopidogrel 75 mg tablet 75 mg PO DAILY #90 tab 04/09/18 furosemide 40 mg tablet 40 mg PO DAILY #90 tab 05/07/18 amlodipine 5 mg tablet 5 mg PO DAILY #90 tab 08/10/18 lorazepam 0.5 mg tablet 0.5 mg PO BID PRN 10 Days #20 tab 08/10/18 Metoprolol Tartrate [Lopressor (beta meredith)] 25 mg PO BID 11/10/18 Aspirin [Aspirin, Baby] 81 mg PO DAILY@0800 11/11/18 Primary Care Physician: Jeffrey Lopez MD [Primary Care Provider] - Please follow up with your Primary Care Physician in: 1 WEEK. Disposition: Home Minutes spent on discharge:: 25 Patient Condition:: Stable Medical Necessity - Tobacco Use Smoking Status: Never smoker Meaningful Use Info Meaningful Use Diagnoses (Choose all that apply): None applicable Code Visit OBSV E&M: 57865 Observation care discharge
== END 2018-11-11 13:56 | disposition home or self-care (01) ==
LOC: ED 21:56 → PCU 11-11 02:26
PROVIDERS: Admitting Provider Hospitalist; Emergency Provider Emergency Medicine; Family Provider Family Medicine; PCP Family Medicine; Referring Provider Hospitalist; Visit Provider Hospitalist
DX: R07.89 Other chest pain (principal); I13.0 Hypertensive heart and chronic kidney disease with heart failure and stage 1 through stage 4 chronic kidney disease, or unspecified chronic kidney disease; N18.4 Chronic kidney disease, stage 4 (severe); I25.10 Atherosclerotic heart disease of native coronary artery without angina pectoris; E11.22 Type 2 diabetes mellitus with diabetic chronic kidney disease; M06.9 Rheumatoid arthritis, unspecified; G47.33 Obstructive sleep apnea (adult) (pediatric); I25.2 Old myocardial infarction; E78.5 Hyperlipidemia, unspecified; J45.909 Unspecified asthma, uncomplicated; I50.32 Chronic diastolic (congestive) heart failure; K21.9 Gastro-esophageal reflux disease without esophagitis; I25.5 Ischemic cardiomyopathy; I27.21 Secondary pulmonary arterial hypertension; Z79.899 Other long term (current) drug therapy; Z79.51 Long term (current) use of inhaled steroids; Z79.4 Long term (current) use of insulin; Z79.82 Long term (current) use of aspirin; Z79.02 Long term (current) use of antithrombotics/antiplatelets; Z99.81 Dependence on supplemental oxygen; Z95.1 Presence of aortocoronary bypass graft
CPT/HCPCS: 36415; 71045; 80048; 82962; 83880; 84484; 85025; 93005; 93017; 93306; 93350; 94760; 97162; 97166; 99218; 99285; J7040; Q9957; A4216; C8928; C8929; G0378

== ENCOUNTER → 2018-11-25 08:42 | Outpatient (CLI) | payer MEDICARE, OTHER, SELFPAY ==
[2018-11-11 02:00] VITALS: BMI 36.0
[2018-11-25 10:29] LABS: Hematocrit 39.4 % (37-47); Hemoglobin 12.2 g/dL (12.0-15.0); Mean Corpuscular Hgb 28.1 pg (27.0-32.0); Mean Corpuscular Volume 90.8 fL (81-99); Mean Platelet Vol. 10.5 fl (6.2-12.0); Platelet Count 200 K/mm3 (150-450); RBC Distribution Width SD 42.5 fl (35.1-43.9); Red Blood Count 4.34 M/mm3 (4.2-5.4); White Blood Count 6.6 K/mm3 (4.4-11.0)
[2018-11-25 10:36] LABS: Microalbumin:Creatinine Ratio 147.7 mg/g CRE (<30 mg/g CRE)
[2018-11-25 10:55] LABS: Hemoglobin A1c 8.6 % (4.2-6.3)
[2018-11-25 10:59] LABS: ALB/GLOB Ratio 0.8 RATIO (0.9-2.4); AST(SGOT) 25 U/L (15-37); Alanine Aminotransfer ALT/SGPT 22 U/L (13-56); Alkaline Phosphatase 115 U/L (45-117); Anion Gap 5 (5-15); BUN 19 mg/dL (7-18); BUN/Creat Ratio 15.3 RATIO (10-20); Calcium,Total 9.1 mg/dL (8.5-10.1); Chloride 103 mmol/L (98-107); Cholesterol 117 mg/dL (200); Creatinine, Serum 1.24 mg/dL (0.55-1.02); EST Glomerular Filtration Rate 45 mL/min (>60); Est Glom Filt Rate - Afr Amer 54 mL/min (>60); Globulin 3.9 g/dL (2.2-4.2); Glucose 191 mg/dL (74-106); High Density Lipoprotein 42 mg/dL; Potassium 4.2 mmol/L (3.5-5.1); Protein, Total 6.9 g/dL (6.4-8.2); Sodium Level 142 mmol/L (136-145); Thyroid Stim Hormone (TSH) 1.95 uIU/mL (0.358-3.74); Triglycerides 111 mg/dL; Very Low Density Lipoprotein 22 mg/dL (5-40)
[2018-11-25 12:01] LABS: BNP,B-Type NATRIURETIC PEPTIDE 137.8 pg/mL (0-100)
== END ==
PROVIDERS: Family Provider Family Medicine; PCP Family Medicine; Referring Provider Internal Medicine; Visit Provider Internal Medicine
DX: I50.9 Heart failure, unspecified (principal); E11.9 Type 2 diabetes mellitus without complications
CPT/HCPCS: 36415; 80053; 80061; 82043; 82570; 83036; 83880; 84443; 85027

== ENCOUNTER 2019-02-13 04:57 | Inpatient (IN) | payer MEDICARE, OTHER, SELFPAY ==
[2018-11-11 02:00] VITALS: BMI 36.0
[2019-02-13] VITALS (24 sets, daily range): BP systolic 96–156; BP diastolic 49–77; PULSE 66–115; RESP 18–28; TEMP 36.2–36.9; O2SAT 93–99; BMI 37.0; BMI 35.7; BMI 35.8
--- NOTE | 2019-02-13 05:11 | EKG12_ITS ---
Test Reason : DYSRHYTHMIA Blood Pressure : / mmHG Vent. Rate : 073 BPM Atrial Rate : 074 BPM P-R Int : 000 ms QRS Dur : 124 ms QT Int : 426 ms P-R-T Axes : 000 006 108 degrees QTc Int : 469 ms Sinus rhythm Anterior infarct , age undetermined ST & T wave abnormality, consider lateral ischemia Abnormal ECG Confirmed by RISSA CURRY, WILBUR ([id number]), editor news KARSON FARRELL ([id number]) on 02/13/2019 12:08:51 PM Referred By: Confirmed By:MARGE KWOK MD
--- NOTE | 2019-02-13 05:11 | RAD_ITS ---
STUDY: X-RAY CHEST REASON FOR EXAM: Female, 78 years old. Short of breath TECHNIQUE: Portable chest COMPARISON: 11/10/2018 FINDINGS: There is linear right basilar pulmonary opacity. There is no demonstrated pleural abnormality. There is stable cardiomegaly. There are sternal wires. Normal mediastinum and billy. Normal visualized pulmonary arteries. Normal visualized aortic arch and descending thoracic aorta. Normal visualized thoracic spine. Normal visualized ribs, clavicles, and shoulders. There is no demonstrated abnormality of the visualized soft tissue structures of the upper abdomen. RAD/Chest 1 View (Portable) IMPRESSION: Stable cardiomegaly, prior cardiothoracic surgery Right linear basilar opacity, scar versus subsegmental atelectasis Electronically Signed: Feroz Guillaume, at 6:04 EST Tel , Service support ,
--- NOTE | 2019-02-13 05:19 | ED.DCSUM_ITS ---
- ER Visit Summary Date of Service: 02/13/19 Chief Complaint: Shortness of breath History of Present Illness: The patient is a 78 F presenting with shortness of breath. Patient states this has been ongoing for a couple weeks. It has been worsening over the past couple of days. It is now to the point where she is having trouble walking at home secondary to her shortness of breath. She denies chest pain. Denies fever. She has had a cough. She has history of CHF, asthma, hypertension, hypercholesterolemia. She is not a smoker. Physical Examination: Vitals are stable. Patient is afebrile. 94% on 5 L. Alert no acute distress. HEENT exam is unremarkable. Neck is supple. Lungs are diminished bilaterally. Heart is regular rate and rhythm. Abdomen is soft nontender nondistended. Extremities mild symmetric edema Skin is warm and dry. No focal neurologic deficit. Remainder of exam is unremarkable. Emergency Department Course and Treatment: EKG sinus rate of 73 with no acute ischemic changes. Chest x-ray shows stable cardiomegaly, prior cardiothoracic surgery. Right linear basilar opacity, scar versus subsegmental atelectasis. CBC normal except hemoglobin 11.8. Chemistry normal except glucose 172, BUN 26, creatinine 1.40. Troponin is negative. Patient was given DuoNeb aerosol. With any type of activity including sitting up and trying to get to a bedside commode she became very short of breath. She was given Lasix IV. Discussed with the hospitalist for admission. Disposition: Admission Impression: CHF exacerbation This note was generated with [employer] dictation software. It may contain incorrect words, spelling, and punctuation that were not noted in review of the chart prior to signing ED Disposition - Plan for ED Patient:
[2019-02-13 05:40] LABS: Absolute Lymphocyte Count 1.46 X10^3/uL (0.83-4.51); Absolute Neutrophil Count 6.4 X10^3/uL (2.0-7.7); Basophil# 0.05 X10^3/uL; Basophil% 0.6 % (0-1); Eosinophil# 0.23 X10^3/uL; Eosinophils% 2.6 % (0-5); Hematocrit 37.9 % (37-47); Hemoglobin 11.8 g/dL (12.0-15.0); Lymphocyte # 1.46 X10^3/ul (4.0); Lymphocyte % 16.3 % (19-41); Mean Corp Hgb Conc 31.1 g/dL (32-36); Mean Platelet Vol. 10.3 fl (6.2-12.0); Monocyte# 0.74 X10^3/uL; Monocyte% 8.3 % (0-10); NRBC Flagged by Analyzer 0 % (0-5); Neutrophil # 6.43 X10^3/uL (2.7-7.7); Neutrophil % 71.8 % (47-70); Platelet Count 204 K/mm3 (150-450); RBC Distribution Width CV 13.4 % (11.6-14.6); RBC Distribution Width SD 43.3 fl (35.1-43.9); Red Blood Count 4.21 M/mm3 (4.2-5.4)
[2019-02-13] MEDS: Ipratropium/Albuterol Sulfate 3 ML AMPUL.NEB INHALATION ×3 (05:45→19:53)
[2019-02-13 06:00] LABS: Anion Gap 4 (5-15); BUN 26 mg/dL (7-18); BUN/Creat Ratio 18.6 RATIO (10-20); Calcium,Total 9.7 mg/dL (8.5-10.1); Chloride 103 mmol/L (98-107); EST Glomerular Filtration Rate 39 mL/min (>60); Est Glom Filt Rate - Afr Amer 47 mL/min (>60); Estimated Creatinine Clearance 27.84 ml/min; Glucose 172 mg/dL (74-106); Potassium 3.9 mmol/L (3.5-5.1); Sodium Level 142 mmol/L (136-145)
--- NOTE | 2019-02-13 06:59 | PCM.HP.STD ---
Problem List (1) Acute and chronic respiratory failure with hypoxia Status: Acute (2) Acute on chronic diastolic (congestive) heart failure Status: Acute (3) Acute exacerbation of COPD with asthma Status: Acute (4) Diabetes mellitus, type II Status: Chronic Qualifiers: Diabetes mellitus local intermodal truck driver insulin use: with local intermodal truck driver use Diabetes mellitus complication status: with other specified complication Qualified Code(s): E11.69 - Type 2 diabetes mellitus with other specified complication; Z79.4 - moth exterminator (current) use of insulin (5) Obesity (BMI 30-39.9) Status: Chronic (6) Secondary pulmonary arterial hypertension Status: Chronic (7) H/O coronary artery bypass surgery Status: Resolved Comment: CABG x 5-DENISE-LAD, SVG-Mid PDA and second posterior descending septal pharmacy technologist, SVG-OM1 and OM2 2000 (8) History of coronary artery stent placement Status: Resolved Comment: PCI/MONSE MID SVG-PDA w/ 3.0 x 38 mm and PBO-Piav-MJY-PDA w/ 3.5 x 12 mm Promus Elememt 11/09/2012: MONSE to SVG OM1/OM2 using 3.5 X 12 Promus Synergy, 03/12/2018 (9) Chronic renal failure, stage 4 (severe) Status: Chronic (10) Dyslipidemia Status: Chronic (11) Benign essential hypertension Status: Chronic History of Present Illness Date of Admission: 02/13/19 Chief Complaint: Dyspnea, increased edema, weight gain The patient is a 78 y/o F w/ PMHx: Asthma/?COPD, Chronic Diastolic CHF, Ischemic Cardiomyopathy w/ Chronic Hypoxic Respiratory Failure, CAD s/p CABG x 4 and PCI, HTN, HLD, Obesity, Pulmonary HTN, Diabetes mellitus type II, Hypothyroidism, GERD, IBS, CKD stage IV who presents to the [facility] ED on 02/13/19 with history of several days of worsening weight gain, BL LE edema, dyspnea worse with exertion, orthopnea, more severe on day of ED presentation prompting ED presentation. She denies any marked recent productive cough, fever or chills. She does admit to wheezing however. In the ED upon evaluation patient with conversational dyspnea, increased work of breathing, accessory muscle usage evident with respiratory distress. In the ED work-up included T 97.8, heart rate 66, BP 150/66, respiratory rate 20, 97% on 4 L nasal cannula, CBC with WC 9, hemoglobin 11.8, platelet 204 with mild left shift, BMP with carbon oxide 35, BUN/creatinine 26/1.40, glucose 172, troponin less than 0.015, chest x-ray with stable cardiomegaly with evidence of prior cardiothoracic surgery with right linear basilar opacity consistent with scarring versus subsegmental atelectasis, EKG with sinus rhythm with nonspecific ST and T wave abnormalities with prior evidence of [place], anterior. In the ED patient administered IV Lasix 40 mg x 1, budesonide as well as DuoNeb therapy. Past Medical History Past Medical History (Chronic Problems): Chronic Problems (Last Reviewed 11/11/18 @ 07:00 by Bruce Peoples MD) Diabetes mellitus, type II (Chronic) Obesity (BMI 30-39.9) (Chronic) Secondary pulmonary arterial hypertension (Chronic) Chronic renal failure, stage 4 (severe) (Chronic) Atherosclerosis 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 angina pectoris (Chronic) PCI/MONSE SVG-PDA 11/2012: MONSE to SVG OM1/OM2 using 3.5 X 12 Promus Synergy, 03/12/2018 CABG x 4-DENISE-LAD, SVG-Mid PDA and second posterior descending septal pharmacy technologist, SVG-OM1 and OM2 2000 Dyslipidemia (Chronic) Benign essential hypertension (Chronic) Medical History: Medical History (Last Reviewed 11/11/18 @ 07:00 by Bruce Peoples MD) Secondary pulmonary arterial hypertension (Chronic) I27.21 Chronic renal failure, stage 4 (severe) (Chronic) N18.4 NSTEMI (non-ST elevated myocardial infarction) (Resolved) Onset Date: 03/10/18 I21.4 Atherosclerosis 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 angina pectoris (Chronic) I25.810 PCI/MONSE SVG-PDA 11/2012: MONSE to SVG OM1/OM2 using 3.5 X 12 Promus Synergy, 03/12/2018 CABG x 4-DENISE-LAD, SVG-Mid PDA and second posterior descending septal pharmacy technologist, SVG-OM1 and OM2 2000 Dyslipidemia (Chronic) E78.5 Benign essential hypertension (Chronic) I10 Asthma J45.909 GERD (gastroesophageal reflux disease) K21.9 Hypothyroidism E03.9 IBS (irritable bowel syndrome) K58.9 Obstructive sleep apnea G47.33 Rheumatoid arthritis M06.9 TIA (transient ischemic attack) G45.9 Type 2 diabetes mellitus E11.9 Ischemic cardiomyopathy I25.5 Allergies simvastatin [From Zocor] Allergy (Verified 11/10/18 20:34) Unknown lisinopril Adverse Reaction (Severe, Verified 11/10/18 20:34) cough oxycodone [From Percocet] Adverse Reaction (Severe, Verified 11/10/18 20:34) Bad Dreams acetaminophen [From Vicodin] Adverse Reaction (Verified 11/10/18 20:34) Vomiting hydrocodone bitartrate [From Vicodin] Adverse Reaction (Verified 11/10/18 20:34) Vomiting AMMONIUM LACTATE Allergy (Uncoded 11/10/18 20:34) Rash Home Medications: Ambulatory Orders Medication Instructions Recorded Omeprazole [Prilosec] 40 mg PO DAILY 08/23/13 Budesonide Aerosol [Pulmicort 0.25 mg INHALATION DAILY 04/11/14 Respules] Albuterol Aerosols [Ventolin 2.5 mg INHALATION Q6H PRN PRN 04/02/17 Aerosols] Insulin Regular, Human [Humulin R] 40 unit SQ BID 05/10/17 Calcitriol [Rocaltrol] 0.25 mcg PO DAILY 05/17/17 Allopurinol 100 mg PO BID 03/10/18 Insulin NPH Human [Humulin N Pen] 46 units SUBCUT BID 03/10/18 Oxygen, Home [Home Oxygen] 3 lpm NASAL DAILY 03/10/18 Nitroglycerin (INPATIENT USE) 0.4 mg SUBLINGUAL Q5M PRN #1 bottle 03/13/18 [Nitrostat] furosemide 40 mg tablet 40 mg PO DAILY #90 tab 05/07/18 amlodipine 5 mg tablet 5 mg PO DAILY #90 tab 08/10/18 lorazepam 0.5 mg tablet 0.5 mg PO BID PRN 10 Days #20 tab 08/10/18 Metoprolol Tartrate [Lopressor 25 mg PO BID 11/10/18 (beta meredith)] Aspirin [Aspirin, Baby] 81 mg PO DAILY@0800 11/11/18 pravastatin 80 mg tablet 80 mg PO QHS #90 tab 11/17/18 clopidogrel 75 mg tablet 75 mg PO DAILY #90 tab 02/07/19 Gabapentin [Neurontin] 200 mg PO QHS 02/13/19 Surgical History: Surgical History (Last Reviewed 11/11/18 @ 07:00 by Bruce Peoples MD) H/O coronary artery bypass surgery (Resolved) Onset Date: 2000 Z95.1 CABG x 5-DENISE-LAD, SVG-Mid PDA and second posterior descending septal pharmacy technologist, SVG-OM1 and OM2 2000 History of coronary artery stent placement (Resolved) Onset Date: 03/12/18 Z95.5 PCI/MONSE MID SVG-PDA w/ 3.0 x 38 mm and EOB-Jije-CYZ-PDA w/ 3.5 x 12 mm Promus Elememt 11/09/2012: MONSE to SVG OM1/OM2 using 3.5 X 12 Promus Synergy, 03/12/2018 History of section Z98.891 History of cholecystectomy Z90.49 Hx of appendectomy Z90.49 Surgical History: angioplasty, - - CABG x 4, prior PCI, , appendectomy, cholecystectomy. Psychiatric History: No pertinent psych hx ANNEALER HELPER History: No pertinent ANNEALER HELPER history Lives: With Family - Patient lives with her and granddaughter. Smoking Status: Never smoker Tobacco Use: Secondhand - Patient does note she had at least 10 years of heavy secondhand tobacco use exposure. Alcohol: None Drugs: None - *Family History Paternal Family History: Family History (Last Reviewed 11/11/18 @ 07:00 by Bruce Peoples MD) Mother CAD (coronary artery disease) Daughter CAD (coronary artery disease) Abdominal aortic aneurysm (AAA) History Items: - - Patient states she does not know her father's history at all. Sibling Family History: Family History (Last Reviewed 11/11/18 @ 07:00 by Bruce Peoples MD) Mother CAD (coronary artery disease) Daughter CAD (coronary artery disease) Abdominal aortic aneurysm (AAA) History Items: Cancer, Diabetes, Heart Disease Maternal Family History: Family History (Last Reviewed 11/11/18 @ 07:00 by Bruce Peoples MD) Mother CAD (coronary artery disease) Daughter CAD (coronary artery disease) Abdominal aortic aneurysm (AAA) History Items: Heart Disease Review of Systems Constitutional: Reports: Anorexia, Malaise, Weakness, Weight Change, Fatigue. Denies: Chills, Fever HEENT: Denies: Head Aches, Sinus Congestion, Sinus Drainage Cardiovascular: Reports: Edema. Denies: Chest Pain, Chest Pressure, Chest Tightness, Light Headedness, Orthopnea, Palpitations, Syncope Respiratory: Reports: Shortness of Breath, Shortness of breath at rest, Shortness of breath upon exertion, Wheezing. Denies: Cough, Sputum production Gastrointestinal: Denies: Abdominal Pain, Nausea, Vomiting Genitourinary: Denies: Dysuria Musculoskeletal: Reports: Joint Pain. Denies: Joint Tenderness Skin: Denies: Rash, Wounds Neurological: Denies: Numbness, Tingling, Focal weakness Psychiatric: Denies: Anxiety, Depression, Homicidal Ideations, Suicidal Ideations Hematologic/ Lymphatic: Reports: Anemia, Easy Bruising, Easy Bleeding VTE Information - Inpt Only VTE Present on Admission: No VTE Mechan Device Prophylaxis: SCD's VTE Pharm Prophylaxis ordered?: Yes Patient Problems: Active and Suspected Problems (Last Reviewed 11/11/18 @ 07:00 by Bruce Peoples MD) Acute diastolic CHF (congestive heart failure) (Acute) Acute and chronic respiratory failure with hypoxia (Acute) Acute exacerbation of COPD with asthma (Acute) Subjective: Seated upright in ED bed, increased work of breathing, leaning forward, pursed lip, difficulty with conversation, increased respiratory rate and some accessory muscle usage but notes she feels improved since initial presentation. Objective: Physical Examination: General: awake, alert, oriented x 3 and cooperative, seated upright in the ED bed, fatigued, evident respiratory distress although improving with increased respiratory rate, accessory muscle usage, conversational dyspnea. Skin: normal color, turgor, no icterus, cyanosis. HEENT: AT/NC, EOMI, PERRLA, MMM, no carotid bruits, difficult to assess JVD given thickened neck. Lungs: Diffusely diminished, increased respiratory rate, some accessory muscle usage, difficulty with conversation, rales at the bases as well as diffuse soft end expiratory wheezing, no rhonchi. Heart: Regular rate and rhythm; no gallop, rub audible. Abdomen: soft, obese, NTTP, ND, normal BS, no HSM; however, habitus makes examination difficult. Extremities: no cyanosis, clubbing, bilateral lower extremity pedal to proximal cisneros 1+ pitting edema, tense. Neurological: patient awake, alert, oriented x 3; cognitive function intact; pupils equally reactive to light and accomodation; cranial nerves II-XII grossly normal, moving all 4 extremities, no focal deficits, strength severely global decrease secondary to acute presentation. Psychiatric: affect appears fatigued, mildly distressed as noted, no acute evidence of depressive or anxiety feelings. - Physical Exam Vitals/I&O's: Vital Signs Temp Pulse Resp BP Pulse Ox 97.7 F L 77 20 H 149/49 H 98 02/13/19 06:43 02/13/19 06:43 02/13/19 06:43 02/13/19 06:43 02/13/19 06:43 Oxygen Flow Rate (L/min) 3 Oxygen Delivery Method Room Air Weight: 209 lb Body Mass Index (BMI) 37.0 Finger Stick Blood Glucose 169 Laboratory Results 02/13/19 05:30: WBC 9.0, RBC 4.21, Hgb 11.8 L, Hct 37.9, MCV 90.0, MCH 28.0, MCHC 31.1 L, RDW Std Deviation 43.3, RDW Coeff of Lea 13.4, Plt Count 204, MPV 10.3, Immature Gran % (Auto) 0.400, Neut % (Auto) 71.8 H, Lymph % (Auto) 16.3 L, Cole % (Auto) 8.3, Eos % (Auto) 2.6, Baso % (Auto) 0.6, Absolute Neuts (auto) 6.4, Absolute Lymphs (auto) 1.46, Nucleated RBC % 0 02/13/19 05:30: Sodium 142, Potassium 3.9, Chloride 103, Carbon Dioxide 35.0 H, Anion Gap 4 L, BUN 26 H, Creatinine 1.40 H, Estim Creat Clear Calc 27.84, Est GFR (MDRD) Af Amer 47 L, Est GFR (MDRD) Non-Af 39 L, BUN/Creatinine Ratio 18.6, Glucose 172 H, Calcium 9.7, Troponin I < 0.015 Assessment/Plan All Active Problems (Last Reviewed 11/11/18 @ 07:00 by Bruce Poeples MD) Chest pain (Acute) Acute diastolic CHF (congestive heart failure) (Acute) Acute and chronic respiratory failure with hypoxia (Acute) Acute exacerbation of COPD with asthma (Acute) H/O coronary artery bypass surgery (Resolved 2000) History of coronary artery stent placement (Resolved 03/12/18) Acute on chronic diastolic (congestive) heart failure (Acute) NSTEMI (non-ST elevated myocardial infarction) (Resolved 03/10/18) Asthma with acute exacerbation (Resolved) Community acquired pneumonia (Resolved) History of non-ST elevation myocardial infarction (NSTEMI) (Resolved) Hypercapnia (Resolved) Hypertensive emergency (Resolved) RSV infection (Resolved) Acute respiratory failure with hypoxia (Ruled-out) The patient is a 78 y/o F w/ PMHx: Asthma/?COPD, Chronic Diastolic CHF, Ischemic Cardiomyopathy w/ Chronic Hypoxic Respiratory Failure, CAD s/p CABG x 4 and PCI, HTN, HLD, Obesity, Pulmonary HTN, Diabetes mellitus type II, Hypothyroidism, GERD, IBS, CKD stage IV who presents to the [facility] ED on 02/13/19 with history of several days of worsening weight gain, BL LE edema, dyspnea worse with exertion, orthopnea, more severe on day of ED presentation prompting ED presentation. She denies any marked recent productive cough, fever or chills. (1) Acute on Chronic Hypoxic Respiratory Failure, Multifactorial, secondary to Acute on chronic Asthma/?COPD exacerbation and concurrent #2 Acute Decompensated Diastolic CHF Exacerbation: In the ED work-up included T 97.8, heart rate 66, BP 150/66, respiratory rate 20, 97% on 4 L nasal cannula, CBC with WC 9, hemoglobin 11.8, platelet 204 with mild left shift, BMP with carbon oxide 35, BUN/creatinine 26/1.40, glucose 172, troponin less than 0.015, chest x-ray with stable cardiomegaly with evidence of prior cardiothoracic surgery with right linear basilar opacity consistent with scarring versus subsegmental atelectasis, EKG with sinus rhythm with nonspecific ST and T wave abnormalities with prior evidence of VA, anterior. Patient upon evaluation with increased oxygen needs, accessory muscle usage, conversational dyspnea, increased respiratory rate consistent with respiratory distress. Will admit to PCU, maintain on oxygen with wean as tolerated to room air, continue ATC duonebs, PRN albuterol, IV methylprednisolone initiation, HOB, IS parameters, defer immediate abx initiation, continue to monitor given afebrile, CBC without marked WBC elevation or shift, low threshold to add, obtain sputum Cx and respiratory viral panel. Continue treatment #2 as noted. (2) Acute Decompensated Diastolic CHF with ischemic cardiomyopathy: Chest x-ray with stable cardiomegaly with evidence of prior cardiothoracic surgery with right linear basilar opacity consistent with scarring versus subsegmental atelectasis, trop normal x 1. Patient administered IV lasix in the ED, will admit to PCU, maintain on cardiac telemetry, obtain cardiac enzyme series, obtain serial EKGs, continue IV lasix diuresis, monitor I/Os, maintain on intake restriction, continue medical therapy w/ asa, statin, BB, not on ACEI/ARB with noted allergy. Will obtain TSH and magnesium level. Most recent ECHO noted 11/11/2018 thus will not repeat w/ EF 65%, diastolic function indeterminate. Cardiology consulted, pending. (3) CAD: s/p PCI/MONSE SVG-PDA 11/2012, MONSE to SVG OM1/OM2 03/12/2018, CABG x 4-DENISE-LAD, SVG-Mid PDA and second posterior descending septal pharmacy technologist, SVG-OM1 and OM2 2000, maintain on aspirin, Plavix, statin, metoprolol, not on CODY inhibitor or ARB. (4) Hypertension: Continue home regimen including Norvasc, metoprolol, IV Lasix utilization as noted above with hold on oral, PRN hydralazine. (5) Hyperlipidemia: Continue home statin regimen. AM FLP. (6) Obesity: Weight loss and lifestyle changes encouraged, nutrition consulted. (7) Diabetes mellitus type II: Hold oral home regimen, continue home insulin regimen, ADA diet, accu checks w/ ISS, nutrition consulted for education and teaching. (8) Hypothyroidism: Continue home synthroid regimen, TSH pending. (9) Chronic Kidney Disease Stage IV: Admission BUN/Cr 26/1.40, creatinine clearance 27, baseline renal function 1.3-1.5, appears stable, closely monitor given IV Lasix usage, repeat BMP in AM. (10) ALYCE: CPAP q HS. (11) GERD: Continue home PPI. (12) DVT Prophylaxis: SCDs, heparin. (13) CODE status: Patient from discussions currently with unclear healthcare power of insurance attorney and living will status but suspect not in place, not present at bedside, granddaughter present, given current fatigue recommended that when she is clinically improved we initiate these measures if interested with CM consultation for information. Discussed CODE status at length including difference between FULL code, DNR-CCA and DNR-CC status given patient critical presentation although improving now. Following discussions about the differences in these status, requested Full Code status. Advanced Care Planning Face to Face Time: 16 minutes. Code Visit Inpatient E&M: 64234 Init Hosp L3 Procedures: 06007 Advncd Care Plan 30 Min
[2019-02-13] MEDS: Furosemide 40 MG/4 ML Vial IV ×3 (07:16→22:36)
--- NOTE | 2019-02-13 07:34 | NURSING ---
PCU WHITE CHF, EXAC
[2019-02-13 09:16] LABS: Bedside Glucose 199 mg/dL (70-110)
[2019-02-13] MEDS: Aspirin 81 MG TAB.CHEW PO (11:26)
[2019-02-13] MEDS: amLODIPine 5 MG Tablet PO (11:27)
[2019-02-13] MEDS: Heparin Injection (Vial) 5,000 UNIT/ML VIAL 5000 UNIT SC ×2 (11:27→22:35)
[2019-02-13] MEDS: Metoprolol Tartrate 25 MG Tablet PO ×2 (11:27→22:39)
[2019-02-13] MEDS: Allopurinol 100 MG Tablet PO ×2 (11:27→22:38)
[2019-02-13] MEDS: Clopidogrel Bisulfate 75 MG Tablet PO (11:28)
[2019-02-13] MEDS: Calcitriol 0.25 MCG Capsule PO (11:28)
[2019-02-13] MEDS: Insulin Lispro 100 UNIT/ML INSULN.PEN SC ×3 (11:31→22:36)
[2019-02-13] MEDS: 0.9% Saline Lock 10 ML Syringe IV ×4 (11:35→22:35)
[2019-02-13 11:40] LABS: Bedside Glucose 254 mg/dL (70-110)
--- NOTE | 2019-02-13 15:38 | CON.PCM_ITS ---
Problem List (1) Acute diastolic CHF (congestive heart failure) Status: Acute Reason for Consult Date of Consultation: 02/13/19 Reason for Consultation: CHF History of Present Illness: The patient is a 78 y/o F w/ PMHx: Asthma/?COPD, Chronic Diastolic CHF, Ischemic Cardiomyopathy w/ Chronic Hypoxic Respiratory Failure, CAD s/p CABG x 4 and PCI, HTN, HLD, Obesity, Pulmonary HTN, Diabetes mellitus type II, Hypothyroidism, GERD, IBS, CKD stage IV who presents to the [facility] ED on 02/13/19 with history of several days of worsening weight gain, BL LE edema, dyspnea worse with exertion, orthopnea, more severe on day of ED presentation prompting ED presentation. She denies any marked recent productive cough, fever or chills. She does admit to wheezing however. In the ED upon evaluation patient with conversational dyspnea, increased work of breathing, accessory muscle usage evident with respiratory distress. In the ED work-up included T 97.8, heart rate 66, BP 150/66, respiratory rate 20, 97% on 4 L nasal cannula, CBC with WC 9, hemoglobin 11.8, platelet 204 with mild left shift, BMP with carbon oxide 35, BUN/creatinine 26/1.40, glucose 172, troponin less than 0.015, chest x-ray with stable cardiomegaly with evidence of prior cardiothoracic surgery with right linear basilar opacity consistent with scarring versus subsegmental atelectasis, EKG with sinus rhythm with nonspecific ST and T wave abnormalities with prior evidence of [place], anterior. In the ED patient administered IV Lasix 40 mg x 1, budesonide as well as DuoNeb therapy. Patient states that she feels slightly better after receiving the IV Lasix. Review of systems: All else is negative except that in the HPI. Past Medical History Allergies/Adverse Reactions: Allergies simvastatin [From Zocor] Allergy (Verified 11/10/18 20:34) Unknown lisinopril Adverse Reaction (Severe, Verified 11/10/18 20:34) cough oxycodone [From Percocet] Adverse Reaction (Severe, Verified 11/10/18 20:34) Bad Dreams acetaminophen [From Vicodin] Adverse Reaction (Verified 11/10/18 20:34) Vomiting hydrocodone bitartrate [From Vicodin] Adverse Reaction (Verified 11/10/18 20:34) Vomiting AMMONIUM LACTATE Allergy (Uncoded 11/10/18 20:34) Rash Home Medications: Ambulatory Orders Medication Instructions Recorded Omeprazole [Prilosec] 40 mg PO DAILY 08/23/13 Budesonide Aerosol [Pulmicort 0.25 mg INHALATION DAILY 04/11/14 Respules] Albuterol Aerosols [Ventolin 2.5 mg INHALATION Q6H PRN PRN 04/02/17 Aerosols] Insulin Regular, Human [Humulin R] 40 unit SQ BID 05/10/17 Calcitriol [Rocaltrol] 0.25 mcg PO DAILY 05/17/17 Allopurinol 100 mg PO BID 03/10/18 Insulin NPH Human [Humulin N Pen] 46 units SUBCUT BID 03/10/18 Oxygen, Home [Home Oxygen] 3 lpm NASAL DAILY 03/10/18 Nitroglycerin (INPATIENT USE) 0.4 mg SUBLINGUAL Q5M PRN #1 bottle 03/13/18 [Nitrostat] furosemide 40 mg tablet 40 mg PO DAILY #90 tab 05/07/18 amlodipine 5 mg tablet 5 mg PO DAILY #90 tab 08/10/18 lorazepam 0.5 mg tablet 0.5 mg PO BID PRN 10 Days #20 tab 08/10/18 Metoprolol Tartrate [Lopressor 25 mg PO BID 11/10/18 (beta meredith)] Aspirin [Aspirin, Baby] 81 mg PO DAILY@0800 11/11/18 pravastatin 80 mg tablet 80 mg PO QHS #90 tab 11/17/18 clopidogrel 75 mg tablet 75 mg PO DAILY #90 tab 02/07/19 Gabapentin [Neurontin] 200 mg PO QHS 02/13/19 Past Medical History (Chronic Problems): Chronic Problems (Last Reviewed 11/11/18 @ 07:00 by Bruce Peoples MD) Diabetes mellitus, type II (Chronic) Obesity (BMI 30-39.9) (Chronic) Secondary pulmonary arterial hypertension (Chronic) Chronic renal failure, stage 4 (severe) (Chronic) Atherosclerosis 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 angina pectoris (Chronic) PCI/MONSE SVG-PDA 11/2012: MONSE to SVG OM1/OM2 using 3.5 X 12 Promus Synergy, 03/12/2018 CABG x 4-DENISE-LAD, SVG-Mid PDA and second posterior descending septal transfer coordinator, SVG-OM1 and OM2 2001 Dyslipidemia (Chronic) Benign essential hypertension (Chronic) Surgical History: angioplasty, - - CABG x 4, prior PCI, , appendectomy, cholecystectomy. Psychiatric History: No pertinent psych hx MACHINE REPAIR PERSON History: No pertinent MACHINE REPAIR PERSON history - *Family History Paternal Family History: Family History (Last Reviewed 11/11/18 @ 07:00 by Bruce Peoples MD) Mother CAD (coronary artery disease) Daughter CAD (coronary artery disease) Abdominal aortic aneurysm (AAA) History Items: - - Patient states she does not know her father's history at all. Sibling Family History: Family History (Last Reviewed 11/11/18 @ 07:00 by Bruce Peoplse MD) Mother CAD (coronary artery disease) Daughter CAD (coronary artery disease) Abdominal aortic aneurysm (AAA) History Items: Cancer, Diabetes, Heart Disease Maternal Family History: Family History (Last Reviewed 11/11/18 @ 07:00 by Bruce Peoples MD) Mother CAD (coronary artery disease) Daughter CAD (coronary artery disease) Abdominal aortic aneurysm (AAA) History Items: Heart Disease Lives: With Family - Patient lives with her and granddaughter. Smoking Status: Never smoker Tobacco Use: Secondhand - Patient does note she had at least 10 years of heavy secondhand tobacco use exposure. Alcohol: None Drugs: None Objective: Vital Signs Temp Pulse Resp BP Pulse Ox 97.9 F 74 22 H 154/51 H 96 02/13/19 14:23 02/13/19 15:21 02/13/19 14:23 02/13/19 14:23 02/13/19 14:23 Oxygen Flow Rate (L/min) 5 Oxygen Delivery Method Nasal Cannula Weight: 201 lb 15.095 oz Body Mass Index (BMI) 35.7 Finger Stick Blood Glucose 169 Intake and Output for Last 24 Hours 02/11/19 02/12/19 02/13/19 23:59 23:59 23:59 Intake Total 350 / 350 Output Total 625 / 625 Balance -275 / -275 General: Awake, Alert, Oriented x 3 HEENT: Atraumatic Oral: Moist Mucosa Neck: Supple Lungs: Rales - Darci Bases, Expiratory Wheezes-Darci Cardiovascular: Normal S1, Normal S2 Abdomen: Soft Extremities: Bilateral Edema +1 Skin: No Rashes Psych/Mental Status: Appropriate 02/13/19 05:30: WBC 9.0, RBC 4.21, Hgb 11.8 L, Hct 37.9, MCV 90.0, MCH 28.0, MCHC 31.1 L, Plt Count 204, MPV 10.3, Immature Gran % (Auto) 0.400, Neut % (Auto) 71.8 H, Lymph % (Auto) 16.3 L, [place] % (Auto) 8.3, Eos % (Auto) 2.6, Baso % (Auto) 0.6, Absolute Neuts (auto) 6.4, Nucleated RBC % 0 02/13/19 05:30: Sodium 142, Potassium 3.9, Chloride 103, Carbon Dioxide 35.0 H, Anion Gap 4 L, BUN 26 H, Creatinine 1.40 H, Est GFR (MDRD) Af Amer 47 L, Est GFR (MDRD) Non-Af 39 L, BUN/Creatinine Ratio 18.6, Glucose 172 H, Calcium 9.7, Troponin I < 0.015 02/13/19 05:30: Magnesium 2.0 02/13/19 09:13: Troponin I < 0.015 02/13/19 11:50: Troponin I < 0.015 Rhythm: EKG: ECHO: Stress Test: Cardiac Cath: PCI: CT Surgery: Holter monitor: EPS: PPM: CXR: Chest CT Scan: Assessment/Plan 1. CHF: Patient had preserved EF by stress echo recently. Was negative for ischemia as well. It will be reasonable to keep her on IV Lasix overnight and see if she improves. Creatinine needs to be monitored closely as well. 2. CAD: Appears stable from this standpoint. Will monitor.
[2019-02-13 16:21] LABS: Bedside Glucose 367 mg/dL (70-110)
[2019-02-13] MEDS: Insulin Lispro 100 UNIT/ML INSULN.PEN 40 UNIT SC (17:08)
[2019-02-13] MEDS: Insulin NPH Human 100 UNITS/ML PEN 46 UNITS SC (17:09)
[2019-02-13] MEDS: Sodium Chloride 0.65% 1 SPRAY SPRAY.BTL 2 SPRAY NASAL (18:06)
[2019-02-13] MEDS: Nitroglycerin (INPATIENT USE) 0.4 MG TAB.SUBL SUBLINGUAL ×2 (20:23→20:28)
--- NOTE | 2019-02-13 20:30 | EKG12_ITS ---
Test Reason : CP Blood Pressure : / mmHG Vent. Rate : 112 BPM Atrial Rate : 112 BPM P-R Int : 224 ms QRS Dur : 124 ms QT Int : 348 ms P-R-T Axes : 000 -38 059 degrees QTc Int : 475 ms Sinus tachycardia with 1st degree A-V block with occasional Premature ventricular complexes and Fusio n complexes Left axis deviation Non-specific intra-ventricular conduction delay Marked ST abnormality, possible inferior subendocardial injury Abnormal ECG Confirmed by YVES CURRY, AMBER ([id number]), multimedia editor KARSON FARRELL ([id number]) on 02/14/2019 8:05:22 AM Referred By: DR RIVERO Confirmed By:AMBER MARINELLI MD
[2019-02-13] MEDS: Morphine 2 MG/ML Syringe IV (20:40)
[2019-02-13] MEDS: LORazepam 0.5 MG Tablet PO (22:35)
[2019-02-13] MEDS: Gabapentin 100 MG Capsule 200 MG PO (22:37)
[2019-02-13] MEDS: Pravastatin 80 MG Tablet PO (22:38)
[2019-02-13 23:18] LABS: Glucose 498 mg/dL (74-106)
[2019-02-14] VITALS (15 sets, daily range): BP systolic 115–153; BP diastolic 46–93; PULSE 76–107; RESP 18–24; TEMP 36.3–37.2; O2SAT 95–98
--- NOTE | 2019-02-14 05:55 | EKG12_ITS ---
Test Reason : AM EKG Blood Pressure : / mmHG Vent. Rate : 086 BPM Atrial Rate : 086 BPM P-R Int : 228 ms QRS Dur : 120 ms QT Int : 394 ms P-R-T Axes : 067 024 175 degrees QTc Int : 471 ms Sinus rhythm with 1st degree A-V block with frequent Premature ventricular complexes Incomplete left bundle branch block ST & T wave abnormality, consider lateral ischemia Abnormal ECG Confirmed by YVES CURRY, AMBER ([id number]), production editor KARSON FARRELL ([id number]) on 02/14/2019 9:07:12 AM Referred By: DR GUTIERREZ Confirmed By:AMBER MARINELLI MD
[2019-02-14] MEDS: Furosemide 40 MG/4 ML Vial IV ×3 (06:18→21:41)
[2019-02-14] MEDS: 0.9% Saline Lock 10 ML Syringe IV (06:18)
[2019-02-14] MEDS: Ipratropium/Albuterol Sulfate 3 ML AMPUL.NEB INHALATION ×3 (07:20→19:25)
--- NOTE | 2019-02-14 07:28 | PN.CARD_ITS ---
Subjectve: Patient seen and evaluated. Appears to be dyspneic Objective: Vital Signs Temp Pulse Resp BP Pulse Ox 98 F 80 18 115/55 L 97 02/14/19 03:56 02/14/19 07:20 02/14/19 07:20 02/14/19 03:56 02/14/19 07:20 Oxygen Flow Rate (L/min) 4 Oxygen Delivery Method Nasal Cannula Weight: 203 lb 4.259 oz Body Mass Index (BMI) 35.7 Finger Stick Blood Glucose 169 Intake and Output for Last 24 Hours 02/12/19 02/13/19 02/14/19 23:59 23:59 23:59 Intake Total 550 / 550 Output Total 1325 / 1325 200 / 200 Balance -775 / -775 -200 / -200 General: Awake, Alert, Oriented x 3 HEENT: PERRL, EOMI, Sclera Non Icteric Neck: Supple, Good ROM, No Lymph Node Enlargement Lungs: Diminished Darci Bases Cardiovascular: Regular Rhythm, Normal S1, Normal S2, No Murmurs, No Rubs, No Gallops Vascular: No Carotid Bruits, Normal Femoral Pulses, Normal Radial Pulses, Normal Dorsalis Pedal Pulse, Normal Posterior Tibial Pulses Abdomen: Bowel Sounds Present, Soft, Non Tender, No HSM, No Organomegaly Extremities: No Cyanosis, No Clubbing, No edema, Bilateral Edema +1 Musculoskeletal: No Erythema Skin: No Rashes Lymphatic: No Lymph Node Enlargement Neurological: No Focal Motor or Sensory Deficit Psych/Mental Status: Appropriate 02/13/19 05:30: Magnesium 2.0 02/13/19 09:13: Troponin I < 0.015 02/13/19 11:50: Troponin I < 0.015 02/13/19 21:10: Troponin I < 0.015 02/13/19 22:35: Glucose 498 H* Rhythm: EKG: ECHO: Stress Test: Cardiac Cath: PCI: CT Surgery: Holter monitor: EPS: PPM: CXR: Chest CT Scan: Medical Necessity - Tobacco Use Smoking Status: Never smoker Tobacco Use: Secondhand - Patient does note she had at least 10 years of heavy secondhand tobacco use exposure. Assessment/Plan (1) Acute Decompensated Diastolic CHF with ischemic cardiomyopathy: * She was recently evaluated with an echocardiogram which was noted to be normal. I would recommend that we obtain an natruretic peptide level and diuresis with intravenous Lasix and see how she does.. (2) CAD: s/p PCI/MONSE SVG-PDA 11/2012, MONSE to SVG OM1/OM2 03/12/2018, CABG x 4-DENISE-LAD, SVG-Mid PDA and second posterior descending septal collarette separator, SVG- OM1 and OM2 2000, * She recently underwent a stress echo which did not demonstrate any evidence of ischemia. Her EKG demonstrated premature ventricular complexes only but her troponin levels were noted to be normal. * We will continue her on maximum medical therapy. (3) Hypertension: Continue home regimen including Norvasc, metoprolol, IV Lasix utilization as noted above with hold on oral, PRN hydralazine. * Blood pressure somewhat appears to be suboptimally controlled would adjust medications as appropriate (4) Hyperlipidemia: Continue home statin regimen. AM FLP. Thank you for allowing me to participate in the care of your patient. Please don't hesitate to call if any issues arise
[2019-02-14 07:38] LABS: Absolute Lymphocyte Count 0.74 X10^3/uL (0.83-4.51); Absolute Neutrophil Count 8.7 X10^3/uL (2.0-7.7); Basophil# 0.01 X10^3/uL; Basophil% 0.1 % (0-1); Hemoglobin 11.8 g/dL (12.0-15.0); Lymphocyte # 0.74 X10^3/ul (4.0); Lymphocyte % 7.7 % (19-41); Mean Corp Hgb Conc 31.1 g/dL (32-36); Mean Corpuscular Hgb 27.3 pg (27.0-32.0); Mean Platelet Vol. 10.4 fl (6.2-12.0); Monocyte# 0.18 X10^3/uL; Monocyte% 1.9 % (0-10); NRBC Flagged by Analyzer 0 % (0-5); Neutrophil # 8.66 X10^3/uL (2.7-7.7); Neutrophil % 89.5 % (47-70); Platelet Count 192 K/mm3 (150-450); RBC Distribution Width CV 13.3 % (11.6-14.6); RBC Distribution Width SD 43.1 fl (35.1-43.9); Red Blood Count 4.32 M/mm3 (4.2-5.4); White Blood Count 9.7 K/mm3 (4.4-11.0)
[2019-02-14] MEDS: Insulin NPH Human 100 UNITS/ML PEN 46 UNITS SC ×2 (08:05→17:08)
[2019-02-14] MEDS: Allopurinol 100 MG Tablet PO ×2 (08:06→21:43)
[2019-02-14] MEDS: Aspirin 81 MG TAB.CHEW PO (08:06)
[2019-02-14] MEDS: Insulin Lispro 100 UNIT/ML INSULN.PEN 40 UNIT SC ×2 (08:06→17:10)
[2019-02-14] MEDS: Insulin Lispro 100 UNIT/ML INSULN.PEN SC ×3 (08:06→17:09)
--- NOTE | 2019-02-14 08:10 | PCM.PROGNOTE ---
Patient Problems: Active and Suspected Problems (Last Updated 02/14/19 @ 10:34 by Flaco Mccoy MD) Acute diastolic CHF (congestive heart failure) (Acute) Acute and chronic respiratory failure with hypoxia (Acute) Subjective: Chief complaint: Follow-up after admission for acute diastolic CHF with acute on chronic hypoxic respiratory failure. Patient seen and examined. No acute events overnight. She mentioned that her breathing is getting better compared to yesterday, slowly improving, still complaining of dry cough. Denies any chest pain. She is afebrile, blood pressure and heart rate are, pulse ox is 97% on 4 L. - Physical Exam Vitals/I&O's: Vital Signs Temp Pulse Resp BP Pulse Ox 98 F 76 18 115/55 L 97 02/14/19 03:56 02/14/19 07:40 02/14/19 07:20 02/14/19 03:56 02/14/19 07:20 Oxygen Flow Rate (L/min) 4 Oxygen Delivery Method Nasal Cannula Weight: 203 lb 4.259 oz Body Mass Index (BMI) 35.7 Finger Stick Blood Glucose 169 Intake and Output for Last 24 Hours 02/12/19 02/13/19 02/14/19 23:59 23:59 23:59 Intake Total 550 / 550 Output Total 1325 / 1325 200 / 200 Balance -775 / -775 -200 / -200 General: Alert, Oriented x3, Cooperative, - - Moderately short of breath. HEENT: Atraumatic, PERRLA, EOMI, Normocephalic Oral: Moist Mucosa, No Gingival or Mucosal Lesions/ Ulcerations Neck: Supple, No JVD, Negative Carotid Bruits, Trachea Midline, Thyroid Normal Size and Texture Lungs: Diminished, Rales, Rhonchi, Short of Breath, - - Decreased breath sounds bilateral, bilateral basal Rales, rhonchi. Cardiovascular: Regular rate, Regular Rhythm, Normal S1, Normal S2, PMI Normal Abdomen: Bowel Sounds Present, Soft, Non Tender, Non-Distended, No Hepato-splenomegaly, Obese Extremities: No clubbing, No cyanosis, Edema Skin: No rashes, No breakdown Lymphatic: No Cervical, Supraclavicular, or Inguinal Adenopathy Neurological: Cranial nerves II-XII grossly intact, Motor Exam 5/5 strength throughout Psych/Mental Status: Normal Affect, Appropriate, Alert and oriented to time, place, person, mood and affect Microbiology Past 72 Hours 02/13/19 08:40 Mucosa - Nasopharyngeal Respiratory Panel (PCR) - Final Laboratory Results 02/13/19 05:30: Magnesium 2.0, TSH 2.50 02/13/19 08:56: POC Glucose 199 H 02/13/19 09:13: Troponin I < 0.015 02/13/19 11:25: POC Glucose 254 H 02/13/19 11:50: Troponin I < 0.015 02/13/19 16:14: POC Glucose 367 H 02/13/19 21:10: Troponin I < 0.015 02/13/19 22:35: Glucose 498 H* 02/14/19 07:25: WBC 9.7, RBC 4.32, Hgb 11.8 L, Hct 38.0, MCV 88.0, MCH 27.3, MCHC 31.1 L, RDW Std Deviation 43.1, RDW Coeff of Lea 13.3, Plt Count 192, MPV 10.4, Immature Gran % (Auto) 0.800, Neut % (Auto) 89.5 H, Lymph % (Auto) 7.7 L, [place] % (Auto) 1.9, Eos % (Auto) 0.0, Baso % (Auto) 0.1, Absolute Neuts (auto) 8.7 H, Absolute Lymphs (auto) 0.74 L, Nucleated RBC % 0 02/14/19 07:25: Sodium Pending, Potassium Pending, Chloride Pending, Carbon Dioxide Pending, Anion Gap Pending, BUN Pending, Creatinine Pending, Est GFR (MDRD) Af Amer Pending, Est GFR (MDRD) Non-Af Pending, BUN/Creatinine Ratio Pending, Glucose Pending, Calcium Pending, Triglycerides Pending, Cholesterol Pending, LDL Cholesterol Pending, VLDL Cholesterol Pending, HDL Cholesterol Pending 02/14/19 07:25: B-Natriuretic Peptide Pending Clinical Impression(s) from Imaging Studies Chest X-Ray 02/13/19 05:11 IMPRESSION: Stable cardiomegaly, prior cardiothoracic surgery Right linear basilar opacity, scar versus subsegmental atelectasis Electronically Signed: Feroz Guillaume, at 6:04 EST Tel , Service support , Current Medications Acetaminophen (Tylenol) 650 mg PO Q6H PRN PRN PRN Reason: Non-cardiac pain (-12/16) Al Hydroxide/Mg Hydroxide (Mylanta Ii) 15 - 30 ml PO Q4H PRN PRN PRN Reason: INDIGESTION Albuterol Sulfate (Ventolin Aerosols) 2.5 mg INHALATION Q2H PRN PRN PRN Reason: dyspnea, wheezing Albuterol/Ipratropium (Duoneb) 3 ml INHALATION Q4HWA.RT [facility] Last Admin: 02/14/19 07:20 Dose: 3 ml Documented by: Allopurinol (Zyloprim) 100 mg PO BID@0800,2200 [facility] Last Admin: 02/14/19 08:06 Dose: 100 mg Documented by: Amlodipine Besylate (Norvasc) 5 mg PO DAILY [facility] Last Admin: 02/13/19 11:27 Dose: 5 mg Documented by: Aspirin (Aspirin, Baby) 81 mg PO DAILY@0800 [facility] Last Admin: 02/14/19 08:06 Dose: 81 mg Documented by: Calcitriol (Rocaltrol) 0.25 mcg PO DAILY [facility] Last Admin: 02/13/19 11:28 Dose: 0.25 mcg Documented by: Clopidogrel Bisulfate (Plavix) 75 mg PO DAILY [facility] Last Admin: 02/13/19 11:28 Dose: 75 mg Documented by: Dextrose (D50w Syringe) 0 gm IV X1 PRN; Protocol PRN Reason: Hypoglycemia Furosemide (Lasix) 40 mg IV Q8 [facility] Last Admin: 02/14/19 06:18 Dose: 40 mg Documented by: Gabapentin (Neurontin) 200 mg PO QHS [facility] Last Admin: 02/13/19 22:37 Dose: 200 mg Documented by: Glucagon () 1 mg IM .X1 PRN PRN Reason: Hypoglycemia Guaifenesin (Robitussin) 20 ml PO Q4H PRN PRN PRN Reason: COUGH Heparin Sodium (Porcine) (Heparin Na) 5,000 unit SC Q12 [facility] Last Admin: 02/13/19 22:35 Dose: 5,000 unit Documented by: Hydralazine HCl (Apresoline Iv) 10 mg IV Q4H PRN PRN PRN Reason: SBP > 160 Insulin Human Lispro (Humalog Kwikpen (Bkc)) 40 unit SC BIDCM [facility] Last Admin: 02/14/19 08:06 Dose: 40 units Documented by: Insulin Human Lispro (Humalog Kwikpen (Bkc)) 0 unit SC ACHS [facility]; Protocol Last Admin: 02/14/19 08:06 Dose: 7 units Documented by: Insulin Human NPH (Humulin N (Bkc)) 46 units SC BIDAC [facility] Last Admin: 02/14/19 08:05 Dose: 46 units Documented by: Lorazepam (Ativan) 0.5 mg PO BID PRN PRN PRN Reason: ANXIETY Last Admin: 02/13/19 22:35 Dose: 0.5 mg Documented by: Magnesium Hydroxide (Milk Of Magnesia) 30 ml PO DAILY PRN PRN Reason: Constipation Methylprednisolone (Solu-Medrol) 40 mg IV Q8 [facility] Last Admin: 02/14/19 06:18 Dose: 40 mg Documented by: Metoprolol Tartrate (Lopressor (Beta Stephen)) 25 mg PO BID [facility] Last Admin: 02/13/19 22:39 Dose: 25 mg Documented by: Morphine Sulfate () 1 - 2 mg IV Q4H PRN PRN PRN Reason: Pain Score 1-10/10 Last Admin: 02/13/19 20:40 Dose: 1 mg Documented by: Nitroglycerin (Nitrostat) 0.4 mg SUBLINGUAL Q5M PRN PRN Reason: CARDIAC/CHEST PAIN Last Admin: 02/13/19 20:28 Dose: 0.4 mg Documented by: Ondansetron HCl (Zofran) 4 mg IV Q8H PRN PRN PRN Reason: NAUSEA/VOMITING Pravastatin Sodium (Pravachol) 80 mg PO QHS [facility] Last Admin: 02/13/19 22:38 Dose: 80 mg Documented by: Sodium Chloride () 10 - 40 ml IV UD PRN PRN Reason: SALINE FLUSH Last Admin: 02/14/19 06:18 Dose: 10 ml Documented by: Sodium Chloride ([place] Nasal [place]) 2 spray NASAL TID PRN PRN PRN Reason: NASAL DRYNESS Last Admin: 02/13/19 18:06 Dose: 2 spray Documented by: Temazepam (Restoril) 15 mg PO QHS PRN PRN PRN Reason: INSOMNIA Throat Lozenges (Cepacol Sore Throat Lozenge) 1 lozenge MUCOUS MEM Q2H PRN PRN PRN Reason: Sore Throat/Cough Medical Necessity - Tobacco Use Smoking Status: Never smoker Tobacco Use: Secondhand - Patient does note she had at least 10 years of heavy secondhand tobacco use exposure. Assessment/Plan All Active Problems (Last Updated 02/14/19 @ 10:34 by Flaco Mccoy MD) Acute diastolic CHF (congestive heart failure) (Acute) Acute and chronic respiratory failure with hypoxia (Acute) This is a 78 years old female patient presented to the emergency room because of worsening shortness of breath that she was found to have acute ST CHF complicated by acute on chronic hypoxic respiratory failure. #1 acute decompensated diastolic CHF: She is on IV Lasix, on metoprolol as well. Symptoms started to improve, remained on 4 L of oxygen. She has been on 3 L at home. Other vital signs are stable. She had an echocardiogram done on November, that revealed ejection fraction 65%, indeterminate diastolic function. Her BUN and creatinine started to go up compared to admission but still at baseline. Cardiology on the case. I doubt COPD exacerbation. Plan to continue IV diuresis, discontinue IV steroids, repeat BMP tomorrow morning. #2 acute on chronic hypoxic respiratory failure: Secondary to #1. Patient has been on oxygen at 2 L, it is multifactorial secondary to CHF and COPD. Plan as above. #3 CAD status post CABG and stents: Stable, no chest pain. Continue aspirin, Plavix, statins and beta-blockers. #4 uncontrolled type 2 diabetes mellitus: Likely because of IV steroids, blood sugar has been in the 400s. She is on insulin lispro twice daily as well as Humulin twice daily and sliding scale. Expect blood sugar to improve after discontinuation of IV steroids. #5 stage IV chronic kidney disease: Baseline creatinine has been around 1.2 to 1.7 mg deciliter, it was 1.40 yesterday and came up to 1.73 today which is likely because of diuresis. Still at baseline, plan to repeat BMP tomorrow morning. #6 hypertension: Blood pressure stable, continue Lasix and metoprolol. #7 hypothyroidism: Stable, continue levothyroxine. #8 hyperlipidemia: Continue statins. 9 DVT prophylaxis: Subcu heparin. This note was generated with Dragon dictation software. It may contain incorrect words, spelling, and punctuation that were not noted in checking the note before signing. Code Visit Inpatient E&M: 06767 Subs Hosp L2
[2019-02-14 08:19] LABS: Anion Gap 7 (5-15); BUN 37 mg/dL (7-18); BUN/Creat Ratio 21.4 RATIO (10-20); Calcium,Total 9.7 mg/dL (8.5-10.1); Chloride 96 mmol/L (98-107); Cholesterol 112 mg/dL (200); Creatinine, Serum 1.73 mg/dL (0.55-1.02); EST Glomerular Filtration Rate 30 mL/min (>60); Est Glom Filt Rate - Afr Amer 37 mL/min (>60); Estimated Creatinine Clearance 22.53 ml/min; Glucose 450 mg/dL (74-106); High Density Lipoprotein 43 mg/dL; Sodium Level 134 mmol/L (136-145); Triglycerides 75 mg/dL; Very Low Density Lipoprotein 15 mg/dL (5-40)
[2019-02-14 08:21] LABS: Bedside Glucose 436 mg/dL (70-110)
[2019-02-14 09:37] LABS: BNP,B-Type NATRIURETIC PEPTIDE 647.5 pg/mL (0-100)
[2019-02-14] MEDS: Clopidogrel Bisulfate 75 MG Tablet PO (09:46)
[2019-02-14] MEDS: Heparin Injection (Vial) 5,000 UNIT/ML VIAL 5000 UNIT SC ×2 (09:46→21:41)
[2019-02-14] MEDS: Calcitriol 0.25 MCG Capsule PO (09:46)
[2019-02-14] MEDS: amLODIPine 5 MG Tablet PO (09:46)
[2019-02-14] MEDS: Metoprolol Tartrate 25 MG Tablet PO ×2 (09:46→21:43)
[2019-02-14 11:41] LABS: Bedside Glucose > 500 mg/dL (70-110)
[2019-02-14 12:18] LABS: Glucose 577 mg/dL (74-106)
--- NOTE | 2019-02-14 12:51 | CASEMGMT ---
JOSE G ANN assessment: Face to Face with patient for initial transition planning/care coordination assessment. JOSE G ANN introduced self and role at [facility], pt voices understanding and consents to assessment at this time. Pt is sitting up in bed in no distress at this time but does c/o of SOB. Pt is A/Ox4 at this time and answers all questions appropriately at this time. Care providers, pharmacy, and demographics verified at this time. Presentation: Pt to ED via car with worsening SOB for several weeks and pt states unable to walk at home d/t dyspnea. Admit dx: Resp failure, CHF exac PCP: John Specialists: Abdias/Wade, pulm; Izzy, cardio; Vijaya Cruz nephro; Jack, endo; Pito, pod Preferred Pharmacy: [facility] Insurance: Drik A/B, Prior Knowledge Prescription Benefit: [employer] Living Will/HPOA: Pt states does not have LW/HPOA and declines info at this time. LNOK: Ronnie Youssef, ; Malka Danielle, granddaughter Living Arrangements: Pt states lives with and granddaughter in 1 story home with 3 steps to kitchen and states no concerns at home at this time. Pt states that granddaughter assists with ADL's at times. Transportation: Pt states granddaughter drives her and and states no transportation concerns at this time. DME/HHC: Pt states has the following DME: cane, rollater, shower chair, nebulizer, cpap, and 3 liters home oxygen thru [facility]. Pt states has had [facility] in the past and has not been to SNF in the past. Pt states no concerns with going home at discharge. Pt states is retired. Pt states does not smoke or drink ETOH. Pt states no further concerns/needs at this time. CM to follow PT/OT evals and for any further discharge planning/needs. Advised pt to ask for CM if any further questions/concerns/needs arise, voices understanding. Pt Goal: Home Plan: Home, pending PT/OT recommendations. SStaten JOSE G ANN
--- NOTE | 2019-02-14 14:29 | NURSING ---
This RN walking by door, called into room by FREELANCE DIRECTOR for patient having Shortness of breath. Vitals assessed and charted. Spoke patient through relaxing breathing techniques, until patient breathing at a more regular rate/depth. Heart rhythm irregular to auscultation. Tele monitor shows frequent PVCs. Old EKG shows PVCs. Called for CPS for breathing tx. , primary RN notified above.
--- NOTE | 2019-02-14 14:42 | CASEMGMT ---
SW met with patient, introduced self and role at [facility]. SW talked with patient about Palliative Care. She has not heard of it so SW told her about the program. SW told her SW will leave the pamphlet in her room and SW can check back with her before she is discharged to see if she is interested in learning more about the program. Merari CHAPARRO MSW
[2019-02-14 15:40] LABS: Bedside Glucose > 500 mg/dL (70-110)
[2019-02-14 15:40] LABS: Bedside Glucose 477 mg/dL (70-110)
[2019-02-14 16:55] LABS: Bedside Glucose 468 mg/dL (70-110)
[2019-02-14] MEDS: Morphine 2 MG/ML Syringe IV (19:45)
[2019-02-14] MEDS: BENZOCAINE/MENTHOL 1 LOZENGE MUCOUS MEM (19:48)
[2019-02-14] MEDS: LORazepam 0.5 MG Tablet PO (20:53)
[2019-02-14] MEDS: Pravastatin 80 MG Tablet PO (21:43)
[2019-02-14] MEDS: Gabapentin 100 MG Capsule 200 MG PO (21:44)
[2019-02-14 22:01] LABS: Bedside Glucose > 500 mg/dL (70-110)
[2019-02-14] MEDS: Insulin Lispro 100 UNIT/ML INSULN.PEN 9 UNIT SC (22:44)
[2019-02-14 22:54] LABS: Glucose 587 mg/dL (74-106)
[2019-02-15] VITALS (7 sets, daily range): BP systolic 114; BP diastolic 52–84; PULSE 60–97; RESP 18–20; TEMP 36.6–36.8; O2SAT 93–96
[2019-02-15 06:06] LABS: Anion Gap 7 (5-15); BUN 56 mg/dL (7-18); BUN/Creat Ratio 27.3 RATIO (10-20); Calcium,Total 9.7 mg/dL (8.5-10.1); Chloride 96 mmol/L (98-107); Creatinine, Serum 2.05 mg/dL (0.55-1.02); EST Glomerular Filtration Rate 25 mL/min (>60); Est Glom Filt Rate - Afr Amer 30 mL/min (>60); Estimated Creatinine Clearance 19.01 ml/min; Glucose 380 mg/dL (74-106); Potassium 4.3 mmol/L (3.5-5.1); Sodium Level 137 mmol/L (136-145)
[2019-02-15] MEDS: Furosemide 40 MG/4 ML Vial IV (06:28)
[2019-02-15] MEDS: 0.9% Saline Lock 10 ML Syringe IV (06:28)
[2019-02-15] MEDS: Ipratropium/Albuterol Sulfate 3 ML AMPUL.NEB INHALATION (07:00)
--- NOTE | 2019-02-15 08:08 | PN.CARD_ITS ---
Subjectve: Patient seen and evaluated. Appears to be stable. Objective: Vital Signs Temp Pulse Resp BP Pulse Ox 98.2 F 60 18 114/52 L 96 02/15/19 04:00 02/15/19 04:43 02/15/19 04:43 02/15/19 04:00 02/15/19 04:43 Oxygen Flow Rate (L/min) 3 Oxygen Delivery Method Nasal Cannula Weight: 200 lb 6.403 oz Body Mass Index (BMI) 35.7 Finger Stick Blood Glucose 169 Intake and Output for Last 24 Hours 02/13/19 02/14/19 02/15/19 23:59 23:59 23:59 Intake Total 550 / 550 770 / 770 110 / 110 Output Total 1325 / 1325 1800 / 1800 550 / 550 Balance -775 / -775 -1030 / -1030 -440 / -440 General: Awake, Alert, Oriented x 3 HEENT: PERRL, EOMI, Sclera Non Icteric Neck: Supple, Good ROM, No Lymph Node Enlargement Lungs: Clear to auscultation Cardiovascular: Regular Rhythm, Normal S1, Normal S2, No Murmurs, No Rubs, No Gallops Vascular: No Carotid Bruits, Normal Femoral Pulses, Normal Radial Pulses, Normal Dorsalis Pedal Pulse, Normal Posterior Tibial Pulses Abdomen: Bowel Sounds Present, Soft, Non Tender, No HSM, No Organomegaly Extremities: No Cyanosis, No Clubbing, No edema Musculoskeletal: No Erythema Skin: No Rashes Neurological: No Focal Motor or Sensory Deficit 02/14/19 07:25: Sodium 134 L, Potassium 5.0, Chloride 96 L, Carbon Dioxide 31.0, Anion Gap 7, BUN 37 H, Creatinine 1.73 H, Est GFR (MDRD) Af Amer 37 L, Est GFR (MDRD) Non-Af 30 L, BUN/Creatinine Ratio 21.4 H, Glucose 450 H, Calcium 9.7, Triglycerides 75, Cholesterol 112, LDL Cholesterol 54, VLDL Cholesterol 15, HDL Cholesterol 43 02/14/19 07:25: B-Natriuretic Peptide 647.5 H 02/14/19 11:45: Glucose 577 H* 02/14/19 22:25: Glucose 587 H* 02/15/19 05:00: Sodium 137, Potassium 4.3, Chloride 96 L, Carbon Dioxide 34.0 H, Anion Gap 7, BUN 56 H, Creatinine 2.05 H, Est GFR (MDRD) Af Amer 30 L, Est GFR (MDRD) Non-Af 25 L, BUN/Creatinine Ratio 27.3 H, Glucose 380 H, Calcium 9.7 Rhythm: EKG: ECHO: Stress Test: Cardiac Cath: PCI: CT Surgery: Holter monitor: EPS: PPM: CXR: Chest CT Scan: Medical Necessity - Tobacco Use Smoking Status: Never smoker Tobacco Use: Secondhand - Patient does note she had at least 10 years of heavy secondhand tobacco use exposure. Assessment/Plan (1) Acute Decompensated Diastolic CHF with ischemic cardiomyopathy: * She was recently evaluated with an echocardiogram which was noted to be normal. * Natruretic peptide obtained was noted to be elevated * We will attempt to switch to oral Lasix today (2) CAD: s/p PCI/MONSE SVG-PDA 11/2012, MONSE to SVG OM1/OM2 03/12/2018, CABG x 4-DENISE-LAD, SVG-Mid PDA and second posterior descending septal lease operator, SVG- OM1 and OM2 2000, * She recently underwent a stress echo which did not demonstrate any evidence of ischemia. Her EKG demonstrated premature ventricular complexes only but her troponin levels were noted to be normal. * We will continue her on maximum medical therapy. * (3) Hypertension: Continue home regimen including Norvasc, metoprolol, IV Lasix utilization as noted above with hold on oral, PRN hydralazine. * Blood pressure somewhat appears to be suboptimally controlled would adjust medications as appropriate (4) Hyperlipidemia: Continue home statin regimen. AM FLP. Thank you for allowing me to participate in the care of your patient. Please don't hesitate to call if any issues arise
[2019-02-15] MEDS: Insulin Lispro 100 UNIT/ML INSULN.PEN 40 UNIT SC (08:10)
[2019-02-15] MEDS: Insulin Lispro 100 UNIT/ML INSULN.PEN SC ×2 (08:10→11:42)
[2019-02-15] MEDS: Insulin NPH Human 100 UNITS/ML PEN 46 UNITS SC (08:11)
[2019-02-15] MEDS: Aspirin 81 MG TAB.CHEW PO (08:12)
[2019-02-15] MEDS: Allopurinol 100 MG Tablet PO (08:12)
[2019-02-15] MEDS: Heparin Injection (Vial) 5,000 UNIT/ML VIAL 5000 UNIT SC (08:12)
[2019-02-15] MEDS: amLODIPine 5 MG Tablet PO (08:13)
[2019-02-15] MEDS: Metoprolol Tartrate 25 MG Tablet PO (08:13)
[2019-02-15] MEDS: Clopidogrel Bisulfate 75 MG Tablet PO (08:14)
[2019-02-15] MEDS: Calcitriol 0.25 MCG Capsule PO (08:14)
[2019-02-15 08:21] LABS: Bedside Glucose 358 mg/dL (70-110)
--- NOTE | 2019-02-15 10:54 | PCM.DC ---
- Discharge Diagnoses Current Active Problems: Current Active and Chronic Problems (Last Updated 02/14/19 @ 10:34 by Flaco Mccoy MD) Acute diastolic CHF (congestive heart failure) (Acute) Acute and chronic respiratory failure with hypoxia (Acute) Diabetes mellitus, type II (Chronic) Obesity (BMI 30-39.9) (Chronic) You will use the following diet at home:: Calorie/Carbohydrate Controlled (specify 1200, 1400, etc) - 1800 viviane., Cardiac, Fluid restricted (specify 2000 mls, 1500 mls) - Less than 1500 cc daily. Your food should be the consistency of: Regular Discharge Activity: Return to Normal Activity Weight Bearing Status: Weight bearing as tolerated Call your doctor if you observe: Fever of 101 or Higher, Shortness of breath, Dizziness, Fainting spells, Swelling in the ankles, Chest pain, Increased palpitations (irregular heartbeat), Uncontrolled pain Instructions: Taking Medication to Control Heart Failure, Heart Failure: Making Changes to Your Diet Allergies/Adverse Reactions: Allergies simvastatin [From Zocor] Allergy (Verified 11/10/18 20:34) Unknown lisinopril Adverse Reaction (Severe, Verified 11/10/18 20:34) cough oxycodone [From Percocet] Adverse Reaction (Severe, Verified 11/10/18 20:34) Bad Dreams acetaminophen [From Vicodin] Adverse Reaction (Verified 11/10/18 20:34) Vomiting hydrocodone bitartrate [From Vicodin] Adverse Reaction (Verified 11/10/18 20:34) Vomiting AMMONIUM LACTATE Allergy (Uncoded 11/10/18 20:34) Rash Medications to take at Discharge Omeprazole [Prilosec] 40 mg PO DAILY 08/23/13 Budesonide Aerosol [Pulmicort Respules] 0.25 mg INHALATION DAILY 04/11/14 Albuterol Aerosols [Ventolin Aerosols] 2.5 mg INHALATION Q6H PRN PRN 04/02/17 Insulin Regular, Human [Humulin R] 40 unit SQ BID 05/10/17 Calcitriol [Rocaltrol] 0.25 mcg PO DAILY 05/17/17 Allopurinol 100 mg PO BID 03/10/18 Insulin NPH Human [Humulin N Pen] 46 units SUBCUT BID 03/10/18 Oxygen, Home [Home Oxygen] 3 lpm NASAL DAILY 03/10/18 Nitroglycerin (INPATIENT USE) [Nitrostat] 0.4 mg SUBLINGUAL Q5M PRN #1 bottle 03/13/18 amlodipine 5 mg tablet 5 mg PO DAILY #90 tab 08/10/18 lorazepam 0.5 mg tablet 0.5 mg PO BID PRN 10 Days #20 tab 08/10/18 Metoprolol Tartrate [Lopressor (beta meredith)] 25 mg PO BID 11/10/18 Aspirin [Aspirin, Baby] 81 mg PO DAILY@0800 11/11/18 pravastatin 80 mg tablet 80 mg PO QHS #90 tab 11/17/18 clopidogrel 75 mg tablet 75 mg PO DAILY #90 tab 02/07/19 Gabapentin [Neurontin] 200 mg PO QHS 02/13/19 Furosemide [Lasix] 40 mg PO BID #90 tab 02/15/19 The following prescriptions were given: Furosemide [Lasix] 40 mg PO BID #90 tab Transmission Status: Pending to [id number] Primary Care Physician: Jeffrey Lopez MD [Primary Care Provider] - Please follow up with your Primary Care Physician in: 1 week. Test Results: Test results from this visit will be discussed in further detail at your follow-up appointment, if applicable. Please Follow Up With: Siddharth Magana MD When: 2-3 weeks.
--- NOTE | 2019-02-15 11:14 | PHA.DC.MR ---
Pharmacy Service has performed discharge medication reconciliation for this patient. No new medications for this patient. Reviewed medication list from previously reported home medications, and dose changes. The patient's discharge medication list was reviewed for discrepancies and discrepancies were resolved. Home Medications Omeprazole [Prilosec] 40 mg PO DAILY 08/23/13 Budesonide Aerosol [Pulmicort Respules] 0.25 mg INHALATION DAILY 04/11/14 Albuterol Aerosols [Ventolin Aerosols] 2.5 mg INHALATION Q6H PRN PRN 04/02/17 Insulin Regular, Human [Humulin R] 40 unit SQ BID 05/10/17 Calcitriol [Rocaltrol] 0.25 mcg PO DAILY 05/17/17 Allopurinol 100 mg PO BID 03/10/18 Insulin NPH Human [Humulin N Pen] 46 units SUBCUT BID 03/10/18 Oxygen, Home [Home Oxygen] 3 lpm NASAL DAILY 03/10/18 Nitroglycerin (INPATIENT USE) [Nitrostat] 0.4 mg SUBLINGUAL Q5M PRN #1 bottle 03/13/18 amlodipine 5 mg tablet 5 mg PO DAILY #90 tab 08/10/18 lorazepam 0.5 mg tablet 0.5 mg PO BID PRN 10 Days #20 tab 08/10/18 Metoprolol Tartrate [Lopressor (beta meredith)] 25 mg PO BID 11/10/18 Aspirin [Aspirin, Baby] 81 mg PO DAILY@0800 11/11/18 pravastatin 80 mg tablet 80 mg PO QHS #90 tab 11/17/18 clopidogrel 75 mg tablet 75 mg PO DAILY #90 tab 02/07/19 Gabapentin [Neurontin] 200 mg PO QHS 02/13/19 Furosemide [Lasix] 40 mg PO BID #90 tab 02/15/19
--- NOTE | 2019-02-15 11:42 | CASEMGMT ---
Per therapy notes, they are recommending HHC vs SNF. Pt is agreeable to [facility] at this time and states would like [facility] as she has had them in the past. Pt declined further list of local [facility] agencies at this time. Call to Olga at [facility] and she states they are able to take pt at this time for RN, PT/OT, SW at this time. Order is placed in [facility] at this time. Olga is also aware that pt to be discharged today, voices understanding. Will ARAIZA CM
[2019-02-15 12:50] LABS: Bedside Glucose 295 mg/dL (70-110)
--- NOTE | 2019-02-15 13:07 | PCM.DC.SUM ---
Discharge Date and Diagnosis Date of Admission: 02/13/19 Date of Discharge: 02/15/19 - Primary Discharge Diagnosis Active and Suspected Problems (Last Updated 02/14/19 @ 10:34 by Flaco Mccoy MD) #1 acute decompensated diastolic CHF. #2 acute on chronic hypoxic respiratory failure. #3 uncontrolled type 2 diabetes mellitus. - Secondary Discharge Diagnosis Chronic Problems (Last Updated 02/14/19 @ 10:34 by Flaco Mccoy MD) Diabetes mellitus, type II (Chronic) Obesity (BMI 30-39.9) (Chronic) Secondary pulmonary arterial hypertension (Chronic) H/O coronary artery bypass surgery (Chronic 2000) CABG x 5-DENISE-LAD, SVG-Mid PDA and second posterior descending septal undertaker helper, SVG-OM1 and OM2 2000 History of coronary artery stent placement (Chronic 03/12/18) PCI/MONSE MID SVG-PDA w/ 3.0 x 38 mm and ZFR-Fbbp-TYL-PDA w/ 3.5 x 12 mm Promus Elememt 11/09/2012: MONSE to SVG OM1/OM2 using 3.5 X 12 Promus Synergy, 03/12/2018 Chronic renal failure, stage 4 (severe) (Chronic) Atherosclerosis 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 angina pectoris (Chronic) PCI/MONSE SVG-PDA 11/2012: MONSE to SVG OM1/OM2 using 3.5 X 12 Promus Synergy, 03/12/2018 CABG x 4-DENISE-LAD, SVG-Mid PDA and second posterior descending septal undertaker helper, SVG-OM1 and OM2 2000 Dyslipidemia (Chronic) Benign essential hypertension (Chronic) Hospital Course and Treatment Imaging Results: Clinical Impression(s) from Imaging Studies Chest X-Ray 02/13/19 05:11 IMPRESSION: Stable cardiomegaly, prior cardiothoracic surgery Right linear basilar opacity, scar versus subsegmental atelectasis Electronically Signed: Feroz Guillaume, at 6:04 EST Tel , Service support , Dr. Magana, cardiology. Operations: None Procedures: EKG Summary of Care Provided: Patient seen and examined on the day of discharge and ready to be stable to be discharged home. Shortness of breath continued to improve and she remained stable on 3 L of oxygen which is her baseline at home. Her other vital signs are stable. The patient is a 78 year old F patient presented to the emergency room because of worsening shortness of breath and she was found to have acute decompensated diastolic CHF complicated by acute hypoxic respiratory failure. On admission, chest x-ray revealed cardiomegaly and mild bilateral pulmonary vascular congestion. Her BNP was elevated at 647. EKG revealed no acute skin changes. Her troponin was negative x3. Patient was treated with IV Lasix for diuresis and she was continued on metoprolol. She was not on CODY inhibitors because of chronic kidney disease. She had echocardiogram done on November, that revealed ejection fraction of 65%, indeterminant diastolic function. She does have a history of stage IV chronic kidney disease and with IV Lasix, creatinine came up to 2 mg/dL. With IV diuresis, patient symptoms improved and her oxygen requirement decreased. Initially, she required up to 5 L of oxygen and with diuresis, she came down to 3 L which is her baseline at home. She has been on oxygen at home at 3 L on chronic basis. On admission, there was a concern that patient may have COPD exacerbation for which she was started on IV steroids which was discontinued later because I doubt that patient has COPD exacerbation. After started on IV steroids, her blood sugar started to go very high up to 500s. IV steroids continued. Patient discharged home in a stable medical condition, discharged on Lasix 40 mg p.o. twice daily, discharged on oxygen at 3 L, continued on her previous medications without any changes, recommended to keep watching her blood sugar over the next few days as I expected that her blood sugar will come down after discontinuation of the IV steroids, recommended from the PCP in 1 week and follow-up with cardiology in 2 to 3 weeks. - Physical Exam Vitals/I&O's: Vital Signs Temp Pulse Resp BP Pulse Ox 97.9 F 76 18 114/84 H 96 02/15/19 10:00 02/15/19 10:00 02/15/19 10:00 02/15/19 10:00 02/15/19 10:00 Oxygen Flow Rate (L/min) 3 Oxygen Delivery Method Nasal Cannula Weight: 200 lb 6.403 oz Body Mass Index (BMI) 35.7 Finger Stick Blood Glucose 169 Intake and Output for Last 24 Hours 02/13/19 02/14/19 02/15/19 23:59 23:59 23:59 Intake Total 550 / 550 770 / 770 470 / 470 Output Total 1325 / 1325 1800 / 1800 550 / 550 Balance -775 / -775 -1030 / -1030 -80 / -80 General: Alert, Oriented x3, Cooperative, No apparent distress HEENT: Atraumatic, PERRLA, EOMI, Normocephalic Oral: Moist Mucosa, No Gingival or Mucosal Lesions/ Ulcerations Neck: Supple, No JVD, Negative Carotid Bruits, Trachea Midline, Thyroid Normal Size and Texture Lungs: No rhonchi, No wheeze, Diminished, Rales, - - Decreased breath sounds bilateral, bilateral faint basilar Rales. Cardiovascular: Regular rate, Regular Rhythm, Normal S1, Normal S2 Abdomen: Bowel Sounds Present, Soft, Non Tender, Non-Distended, No Hepato-splenomegaly, Obese Extremities: No clubbing, No cyanosis, Edema Skin: No rashes, No breakdown Lymphatic: No Cervical, Supraclavicular, or Inguinal Adenopathy Neurological: Cranial nerves II-XII grossly intact, Neuro grossly intact Psych/Mental Status: Normal Affect, Appropriate Microbiology Past 72 Hours 02/13/19 08:40 Mucosa - Nasopharyngeal Respiratory Panel (PCR) - Final Laboratory Results 02/13/19 22:17: POC Glucose 477 H* 02/13/19 22:19: POC Glucose > 500 H* 02/14/19 16:50: POC Glucose 468 H* 02/14/19 21:40: POC Glucose > 500 H* 02/14/19 22:25: Glucose 587 H* 02/15/19 05:00: Sodium 137, Potassium 4.3, Chloride 96 L, Carbon Dioxide 34.0 H, Anion Gap 7, BUN 56 H, Creatinine 2.05 H, Estim Creat Clear Calc 19.01, Est GFR (MDRD) Af Amer 30 L, Est GFR (MDRD) Non-Af 25 L, BUN/Creatinine Ratio 27.3 H, Glucose 380 H, Calcium 9.7 02/15/19 08:08: POC Glucose 358 H 02/15/19 11:41: POC Glucose 295 H Current Medications Acetaminophen (Tylenol) 650 mg PO Q6H PRN PRN PRN Reason: Non-cardiac pain (-12/16) Al Hydroxide/Mg Hydroxide (Mylanta Ii) 15 - 30 ml PO Q4H PRN PRN PRN Reason: INDIGESTION Albuterol Sulfate (Ventolin Aerosols) 2.5 mg INHALATION Q2H PRN PRN PRN Reason: dyspnea, wheezing Albuterol/Ipratropium (Duoneb) 3 ml INHALATION Q4HWA.RT [facility] Last Admin: 02/15/19 11:00 Dose: Not Given Documented by: Allopurinol (Zyloprim) 100 mg PO BID@0800,2200 [facility] Last Admin: 02/15/19 08:12 Dose: 100 mg Documented by: Amlodipine Besylate (Norvasc) 5 mg PO DAILY [facility] Last Admin: 02/15/19 08:13 Dose: 5 mg Documented by: Aspirin (Aspirin, Baby) 81 mg PO DAILY@0800 [facility] Last Admin: 02/15/19 08:12 Dose: 81 mg Documented by: Calcitriol (Rocaltrol) 0.25 mcg PO DAILY [facility] Last Admin: 02/15/19 08:14 Dose: 0.25 mcg Documented by: Clopidogrel Bisulfate (Plavix) 75 mg PO DAILY [facility] Last Admin: 02/15/19 08:14 Dose: 75 mg Documented by: Dextrose (D50w Syringe) 0 gm IV X1 PRN; Protocol PRN Reason: Hypoglycemia Furosemide (Lasix) 40 mg PO BID@1000,1800 [facility] Gabapentin (Neurontin) 200 mg PO QHS [facility] Last Admin: 02/14/19 21:44 Dose: 200 mg Documented by: Glucagon () 1 mg IM .X1 PRN PRN Reason: Hypoglycemia Guaifenesin (Robitussin) 20 ml PO Q4H PRN PRN PRN Reason: COUGH Heparin Sodium (Porcine) (Heparin Na) 5,000 unit SC Q12 [facility] Last Admin: 02/15/19 08:12 Dose: 5,000 unit Documented by: Hydralazine HCl (Apresoline Iv) 10 mg IV Q4H PRN PRN PRN Reason: SBP > 160 Insulin Human Lispro (Humalog Kwikpen (Bkc)) 40 unit SC BIDCM [facility] Last Admin: 02/15/19 08:10 Dose: 40 units Documented by: Insulin Human Lispro (Humalog Kwikpen (Bkc)) 0 unit SC ACHS [facility]; Protocol Last Admin: 02/15/19 11:42 Dose: 4 units Documented by: Insulin Human NPH (Humulin N (Bkc)) 46 units SC BIDAC [facility] Last Admin: 02/15/19 08:11 Dose: 46 units Documented by: Lorazepam (Ativan) 0.5 mg PO BID PRN PRN PRN Reason: ANXIETY Last Admin: 02/14/19 20:53 Dose: 0.5 mg Documented by: Magnesium Hydroxide (Milk Of Magnesia) 30 ml PO DAILY PRN PRN Reason: Constipation Metoprolol Tartrate (Lopressor (Beta Stephen)) 25 mg PO BID [facility] Last Admin: 02/15/19 08:13 Dose: 25 mg Documented by: Morphine Sulfate () 1 - 2 mg IV Q4H PRN PRN PRN Reason: Pain Score 1-10/10 Last Admin: 02/14/19 19:45 Dose: 1 mg Documented by: Nitroglycerin (Nitrostat) 0.4 mg SUBLINGUAL Q5M PRN PRN Reason: CARDIAC/CHEST PAIN Last Admin: 02/13/19 20:28 Dose: 0.4 mg Documented by: Ondansetron HCl (Zofran) 4 mg IV Q8H PRN PRN PRN Reason: NAUSEA/VOMITING Pravastatin Sodium (Pravachol) 80 mg PO QHS [facility] Last Admin: 02/14/19 21:43 Dose: 80 mg Documented by: Sodium Chloride () 10 - 40 ml IV UD PRN PRN Reason: SALINE FLUSH Last Admin: 02/15/19 06:28 Dose: 10 ml Documented by: Sodium Chloride ([place] Nasal Zephyr) 2 spray NASAL TID PRN PRN PRN Reason: NASAL DRYNESS Last Admin: 02/13/19 18:06 Dose: 2 spray Documented by: Temazepam (Restoril) 15 mg PO QHS PRN PRN PRN Reason: INSOMNIA Throat Lozenges (Cepacol Sore Throat Lozenge) 1 lozenge MUCOUS MEM Q2H PRN PRN PRN Reason: Sore Throat/Cough Last Admin: 02/14/19 19:48 Dose: 1 lozenge Documented by: Discharge Activity: Return to Normal Activity Weight Bearing Status: Weight bearing as tolerated Call your doctor if you observe: Fever of 101 or Higher, Shortness of breath, Dizziness, Fainting spells, Swelling in the ankles, Chest pain, Increased palpitations (irregular heartbeat), Uncontrolled pain Home Medications: Medications to take at Discharge Omeprazole [Prilosec] 40 mg PO DAILY 08/23/13 Budesonide Aerosol [Pulmicort Respules] 0.25 mg INHALATION DAILY 04/11/14 Albuterol Aerosols [Ventolin Aerosols] 2.5 mg INHALATION Q6H PRN PRN 04/02/17 Insulin Regular, Human [Humulin R] 40 unit SQ BID 05/10/17 Calcitriol [Rocaltrol] 0.25 mcg PO DAILY 05/17/17 Allopurinol 100 mg PO BID 03/10/18 Insulin NPH Human [Humulin N Pen] 46 units SUBCUT BID 03/10/18 Oxygen, Home [Home Oxygen] 3 lpm NASAL DAILY 03/10/18 Nitroglycerin (INPATIENT USE) [Nitrostat] 0.4 mg SUBLINGUAL Q5M PRN #1 bottle 03/13/18 amlodipine 5 mg tablet 5 mg PO DAILY #90 tab 08/10/18 lorazepam 0.5 mg tablet 0.5 mg PO BID PRN 10 Days #20 tab 08/10/18 Metoprolol Tartrate [Lopressor (beta stephen)] 25 mg PO BID 11/10/18 Aspirin [Aspirin, Baby] 81 mg PO DAILY@0800 11/11/18 pravastatin 80 mg tablet 80 mg PO QHS #90 tab 11/17/18 clopidogrel 75 mg tablet 75 mg PO DAILY #90 tab 02/07/19 Gabapentin [Neurontin] 200 mg PO QHS 02/13/19 Furosemide [Lasix] 40 mg PO BID #90 tab 02/15/19 Following Prescrptions Were Given to Patient: Furosemide [Lasix] 40 mg PO BID #90 tab Transmission Status: Received by [id number] Primary Care Physician: Jeffrey Lopez MD [Primary Care Provider] - Please follow up with your Primary Care Physician in: 1 week. Please Follow Up With: Siddharth Magana MD When: 2-3 weeks. Please Follow Up With: Jeffrey Lopez MD Patient Instructions: Taking Medication to Control Heart Failure, Heart Failure: Making Changes to Your Diet Disposition: Home Minutes spent on discharge:: 33 Patient Condition:: Stable Medical Necessity - Tobacco Use Smoking Status: Never smoker Tobacco Use: Secondhand - Patient does note she had at least 10 years of heavy secondhand tobacco use exposure. Meaningful Use Info Meaningful Use Diagnoses (Choose all that apply): CHF - CHF CODY/ARB ordered at discharge?: No Reason CODY/ARB not ordered?: Worsening renal function Documented LVEF (%): 65 Code Visit Inpatient E&M: 90784 Disch Hosp
--- NOTE | 2019-02-16 16:23 | CASEMGMT ---
Case Management DC F/u Call: DC Date: 02/15/19 DC Diagnosis: #1 acute decompensated diastolic CHF. #2 acute on chronic hypoxic respiratory failure. #3 uncontrolled type 2 diabetes mellitus. DC Disposition: Home with [facility] SN, PT, OT, SW Lace/Strata: 12/09 Called patient listed Home number on demographics, no answer, VM did not identify correct patient and therefore no VM was left. Patient has a f/u appointment scheduled with PCP Dr Lopez 02/17/19 at [address] Magana 03/10/19 at 1400. FAROOQ Calixto
== END 2019-02-15 15:15 | disposition home or self-care (01) | DRG 291 ==
LOC: ED 07:43 → PCU 07:50
PROVIDERS: Family Medicine; Internal Medicine Cardiovascular Disease; Admitting Provider Family Medicine; Emergency Provider Emergency Medicine; Family Provider Family Medicine; PCP Family Medicine; Visit Provider Hospitalist
DX: I13.0 Hypertensive heart and chronic kidney disease with heart failure and stage 1 through stage 4 chronic kidney disease, or unspecified chronic kidney disease (principal); J96.21 Acute and chronic respiratory failure with hypoxia; N18.4 Chronic kidney disease, stage 4 (severe); I25.5 Ischemic cardiomyopathy; I25.10 Atherosclerotic heart disease of native coronary artery without angina pectoris; E78.5 Hyperlipidemia, unspecified; E03.9 Hypothyroidism, unspecified; G47.33 Obstructive sleep apnea (adult) (pediatric); K21.9 Gastro-esophageal reflux disease without esophagitis; E66.9 Obesity, unspecified; E11.22 Type 2 diabetes mellitus with diabetic chronic kidney disease; Z95.1 Presence of aortocoronary bypass graft; Z79.4 Long term (current) use of insulin; Z95.5 Presence of coronary angioplasty implant and graft; Z68.35 Body mass index [BMI] 35.0-35.9, adult; Z77.22 Contact with and (suspected) exposure to environmental tobacco smoke (acute) (chronic); E11.65 Type 2 diabetes mellitus with hyperglycemia; Z99.81 Dependence on supplemental oxygen
CPT/HCPCS: 36415; 71045; 80048; 80061; 82947; 82962; 83735; 83880; 84443; 84484; 85025; 87633; 93005; 94640; 97116; 97161; 97165; 97530; 97802; 99251; 99284; A4216; G0463; J1940

== ENCOUNTER → 2019-02-22 15:38 | Outpatient (CLI) | payer MEDICARE, OTHER, SELFPAY ==
[2019-02-22 14:28] VITALS: BMI 35.9
[2019-02-22 16:46] LABS: Anion Gap 4 (5-15); BUN 22 mg/dL (7-18); BUN/Creat Ratio 15.3 RATIO (10-20); Calcium,Total 8.6 mg/dL (8.5-10.1); Chloride 104 mmol/L (98-107); Creatinine, Serum 1.44 mg/dL (0.55-1.02); EST Glomerular Filtration Rate 37 mL/min (>60); Est Glom Filt Rate - Afr Amer 45 mL/min (>60); Glucose 94 mg/dL (74-106); Potassium 3.7 mmol/L (3.5-5.1); Sodium Level 140 mmol/L (136-145)
[2019-02-22 16:57] LABS: BNP,B-Type NATRIURETIC PEPTIDE 224.4 pg/mL (0-100)
== END ==
PROVIDERS: Family Provider Family Medicine; PCP Family Medicine; Referring Provider Nurse Practitioner Family; Visit Provider Nurse Practitioner Family
DX: I50.31 Acute diastolic (congestive) heart failure (principal); I25.810 Atherosclerosis of coronary artery bypass graft(s) without angina pectoris; E11.9 Type 2 diabetes mellitus without complications; Z95.5 Presence of coronary angioplasty implant and graft; Z95.1 Presence of aortocoronary bypass graft
CPT/HCPCS: 36415; 80048; 83880

== ENCOUNTER → 2019-02-28 11:12 | Outpatient (CLI) | payer MEDICARE, OTHER, SELFPAY ==
[2019-02-22 14:28] VITALS: BMI 35.9
== END ==
PROVIDERS: Family Provider Family Medicine; PCP Family Medicine; Referring Provider Nurse Practitioner Family; Visit Provider Nurse Practitioner Family
DX: I25.810 Atherosclerosis of coronary artery bypass graft(s) without angina pectoris (principal); E78.5 Hyperlipidemia, unspecified; I10 Essential (primary) hypertension; R00.1 Bradycardia, unspecified
CPT/HCPCS: 93225; 93226

== ENCOUNTER → 2019-03-14 12:25 | Outpatient (CLI) | payer MEDICARE, OTHER, SELFPAY ==
[2019-02-22 14:28] VITALS: BMI 35.9
[2019-03-14 13:52] LABS: Hematocrit 40.8 % (37-47); Hemoglobin 12.6 g/dL (12.0-15.0); Mean Corp Hgb Conc 30.9 g/dL (32-36); Mean Corpuscular Hgb 27.8 pg (27.0-32.0); Mean Corpuscular Volume 90.1 fL (81-99); Mean Platelet Vol. 10.5 fl (6.2-12.0); Platelet Count 234 K/mm3 (150-450); RBC Distribution Width CV 13.9 % (11.6-14.6); RBC Distribution Width SD 45.5 fl (35.1-43.9); Red Blood Count 4.53 M/mm3 (4.2-5.4); White Blood Count 9.8 K/mm3 (4.4-11.0)
[2019-03-14 14:06] LABS: Protein, Urine (Random) 8.3 mg/dL (<11.9); Protein:Creat Ratio 314 mg/g CRE (0-200)
[2019-03-14 14:26] LABS: PTHIN 179.9 pg/mL (18.4-80.1)
[2019-03-14 14:33] LABS: Albumin, Serum 3.4 g/dL (3.2-5.0); BUN 29 mg/dL (7-18); BUN/Creat Ratio 18.6 RATIO (10-20); Calcium,Total 9.3 mg/dL (8.5-10.1); Chloride 99 mmol/L (98-107); Creatinine, Serum 1.56 mg/dL (0.55-1.02); EST Glomerular Filtration Rate 34 mL/min (>60); Est Glom Filt Rate - Afr Amer 41 mL/min (>60); Ferritin 127 ng/mL (8-252); Glucose 92 mg/dL (74-106); Iron 76 ug/dL (50-170); Iron Binding Capacity,Total 342 ug/dL (250-450); PERCENT IRON SATURATION 22.2 % (15.0-55.0); Phosphorus 3.6 mg/dL (2.5-4.9); Potassium 4.1 mmol/L (3.5-5.1); Sodium Level 139 mmol/L (136-145)
== END ==
PROVIDERS: Family Provider Family Medicine; PCP Family Medicine; Referring Provider Internal Medicine Nephrology; Visit Provider Internal Medicine Nephrology
DX: I12.9 Hypertensive chronic kidney disease with stage 1 through stage 4 chronic kidney disease, or unspecified chronic kidney disease (principal); N18.3 Chronic kidney disease, stage 3 (moderate); N25.81 Secondary hyperparathyroidism of renal origin; D63.1 Anemia in chronic kidney disease
CPT/HCPCS: 36415; 80069; 82570; 82728; 83540; 83550; 83970; 84156; 85027

== ENCOUNTER 2019-09-17 20:06 | Inpatient (IN) | payer MEDICARE, OTHER, SELFPAY ==
[2019-09-15 07:26] VITALS: BMI 35.7
[2019-09-17] VITALS (7 sets, daily range): BP systolic 120–170; BP diastolic 72–98; PULSE 66–105; RESP 20–30; TEMP 36.7–37.3; O2SAT 94–100; BMI 36.3; BMI 36.1; BMI 36.2
--- NOTE | 2019-09-17 20:30 | ED.DCSUM_ITS ---
History of Present Illness Chief Complaint: Shortness of Breath Informant: Patient - 1, Family Onset: Today Current Severity: Moderate Maximum Severity: Moderate Narrative: Presents with shortness of breath and she has a history of asthma and heart failure. She said this is been worsening for her. She lives on 4 L of oxygen at baseline and wears CPAP at night. She states normally she can walk from the parking lot into a store and she does get a little short of breath but now she can only walk a few feet. She does not have a cough or fever. She simply feels short of breath. She is denying chest pain. She has had to wean her oxygen up to 6 L to maintain normal sats. He states that she is not has not had any weight gain that she knows of. Prior similar symptoms: Yes Past Medical History - Allergies and Home Meds Allergies/Adverse Reactions: Allergies simvastatin [From Zocor] Allergy (Verified 09/17/19 20:08) Unknown lisinopril Adverse Reaction (Severe, Verified 09/17/19 20:08) cough oxycodone [From Percocet] Adverse Reaction (Severe, Verified 09/17/19 20:08) Bad Dreams acetaminophen [From Vicodin] Adverse Reaction (Verified 09/17/19 20:08) Vomiting hydrocodone bitartrate [From Vicodin] Adverse Reaction (Verified 09/17/19 20:08) Vomiting AMMONIUM LACTATE Allergy (Uncoded 09/17/19 20:08) Rash Prior records reviewed: Yes Surgical History: angioplasty, - - CABG x 4, prior PCI, , appendectomy, cholecystectomy. Smoking Status: Never smoker Alcohol: None Drugs: None - Family History Paternal Family History: Family History (Last Reviewed 09/15/19 @ 08:38 by ANNY Medina) Mother CAD (coronary artery disease) Daughter CAD (coronary artery disease) Abdominal aortic aneurysm (AAA) Family History: Reports: - - Patient states she does not know her father's history at all. Sibling Family History: Family History (Last Reviewed 09/15/19 @ 08:38 by ANNY Medina) Mother CAD (coronary artery disease) Daughter CAD (coronary artery disease) Abdominal aortic aneurysm (AAA) Family History: Reports: Cancer, Diabetes, Heart Disease Maternal Family History: Family History (Last Reviewed 09/15/19 @ 08:38 by ANNY Medina) Mother CAD (coronary artery disease) Daughter CAD (coronary artery disease) Abdominal aortic aneurysm (AAA) Family History: Reports: Heart Disease Review of Systems General: Denies: Chills, Fever Eyes: Denies: Visual changes - bilaterally, Diplopia ENT: Denies: Rhinorrhea, Sore throat Cardiovascular: Denies: Chest pain Respiratory: Reports: Dyspnea, Dyspnea on exertion Gastrointestinal: Denies: Abdominal pain, Nausea, Vomiting Musculoskeletal: Denies: Myalgias, Arthralgias Skin: Denies: Rash Psych: Reports: Anxiety Endocrine: Denies: Polyuria, Polydipsia Physical Exam Vital Signs/Narrative: Vital Signs Temp Pulse Resp BP Pulse Ox 09/17/19 20:06 98.8 F 66 20 H 157/89 H 100 Inital Vital Signs reviewed: Yes General: Obese, Acute Distress - Mild distress. Speaking in short sentences. No tripoding. Alert and oriented. Eyes: Perrl, EOMI ENT: Dry mucous membranes Cardiovascular: Regular rate, Regular rhythm Respiratory: Diminished, Decreased Air Movement. Negative for: Wheezing, Chest tenderness Extremities: Nontender, Edema - Rashel pedal edema bilaterally Skin: Normal color, No rash Neurological: Alert, Oriented x3 Psychological: Normal affect Diagnostic/Tx/Re-eval Chest X-Ray - ED: 1 View Chest x-ray 1 view: 1. No acute findings or change since prior. 2. Moderate cardiomegaly, prior open heart surgery. 3. Right lung base scarring. - Rhythm Strip Rhythm Strip: junctional Rate: 79 - Press duration 122 msQTc 467 ms Ectopy: PVC(s) - Medical Decision Making Patient presents with shortness of breath and increasing oxygen demands. On exam she has diminished air movement however she is not wheezing. I did give her breathing treatments to see if this would help her and I was able to wean her off of a couple liters of oxygen however she quickly required oxygen again. EKG looks to be a junctional rhythm with some PVCs. Chest x-ray is negative. Troponin is negative. Her other labs appear to be at baseline. Her BNP is about 300. Given her increased oxygen demands I decided to admit her for observation. When speaking to the admitting physician she wanted me to check a d-dimer, however I did note that even if she had a positive d-dimer we would not be able to CTA her due to her kidney disease. She recommended since the d-dimer was elevated to give her weight-based Lovenox until we can get a VQ scan. She also wanted to have a COVID?19 swab on her given her increasing shortness of breath. This was all performed. She was also given 40 of Lasix IV in the ED. She is admitted to the ICU for monitoring. ED Disposition - Plan for ED Patient: Disposition: Acute Care Hospital [facility] Diagnosis: Dyspnea due to congestive heart failure, D-dimer, elevated
--- NOTE | 2019-09-17 20:30 | EKG12_ITS ---
Test Reason : CP Blood Pressure : / mmHG Vent. Rate : 109 BPM Atrial Rate : 109 BPM P-R Int : 224 ms QRS Dur : 130 ms QT Int : 360 ms P-R-T Axes : 000 130 -04 degrees QTc Int : 484 ms Sinus tachycardia with 1st degree A-V block with Premature supraventricular complexes and with freque nt and consecutive Premature ventricular complexes Non-specific intra-ventricular conduction block Abnormal ECG When compared with ECG of 17-SEP-2019 20:45, MANUAL COMPARISON REQUIRED, DATA IS UNCONFIRMED Confirmed by YVES CURRY, AMBER ([id number]), film editor LALA KENNEDY ([id number]) on 09/20/2019 10:10:06 AM Referred By: Sierra Hyatt Confirmed By:AMBER MARINELLI MD
[2019-09-17 20:47] LABS: Absolute Lymphocyte Count 1.29 X10^3/uL (0.83-4.51); Absolute Neutrophil Count 9.8 X10^3/uL (2.0-7.7); Basophil# 0.04 X10^3/uL; Basophil% 0.3 % (0-1); Eosinophil# 0.17 X10^3/uL; Eosinophils% 1.4 % (0-5); Hemoglobin 11.7 g/dL (12.0-15.0); Lymphocyte # 1.29 X10^3/ul (4.0); Lymphocyte % 10.5 % (19-41); Mean Corp Hgb Conc 30.8 g/dL (32-36); Mean Corpuscular Hgb 28.9 pg (27.0-32.0); Mean Corpuscular Volume 93.8 fL (81-99); Mean Platelet Vol. 10.8 fl (6.2-12.0); Monocyte# 0.91 X10^3/uL; Monocyte% 7.4 % (0-10); NRBC Flagged by Analyzer 0 % (0-5); Neutrophil # 9.78 X10^3/uL (2.7-7.7); Neutrophil % 79.7 % (47-70); Platelet Count 205 K/mm3 (150-450); RBC Distribution Width CV 14.3 % (11.6-14.6); RBC Distribution Width SD 49.3 fl (35.1-43.9); Red Blood Count 4.05 M/mm3 (4.2-5.4); White Blood Count 12.3 K/mm3 (4.4-11.0)
--- NOTE | 2019-09-17 20:47 | RAD_ITS ---
STUDY: X-RAY CHEST REASON FOR EXAM: Female, 79 years old. INCREASED SOB, HAS ASTHMA AND COPD TECHNIQUE: Frontal view of the chest COMPARISON: None. FINDINGS: Appearance is stable since prior. There is scarring in the right lower lung zone and atelectasis. There is no pneumothorax, pulmonary edema or pleural effusions. Cardiac silhouette is moderately enlarged. Sternotomy wires are present. Osseous structures are intact. RAD/Chest 1 View (Portable) IMPRESSION: 1. No acute findings or change since prior. 2. Moderate cardiomegaly, prior open heart surgery. 3. Right lung base scarring. Electronically Signed: Kolby Rowe, at 20:57 EDT Tel , Service support ,
[2019-09-17] MEDS: Ipratropium/Albuterol Sulfate 3 ML AMPUL.NEB INHALATION (20:56)
[2019-09-17] MEDS: Albuterol 2.5 MG/3 ML VIAL.NEB. INHALATION (20:56)
[2019-09-17 21:16] LABS: Anion Gap 7 (5-15); BUN 30 mg/dL (7-18); BUN/Creat Ratio 18.1 RATIO (10-20); Calcium,Total 9.1 mg/dL (8.5-10.1); Chloride 100 mmol/L (98-107); Creatinine, Serum 1.66 mg/dL (0.55-1.02); EST Glomerular Filtration Rate 32 mL/min (>60); Est Glom Filt Rate - Afr Amer 38 mL/min (>60); Glucose 103 mg/dL (74-106); Potassium 4.1 mmol/L (3.5-5.1); Sodium Level 140 mmol/L (136-145)
--- NOTE | 2019-09-17 21:55 | ED.RN ---
pt still struggling to breathe, looks worse to this rn. MD to bedside for reevaluation. Anxiety medication ordered. pending admission.
--- NOTE | 2019-09-17 22:16 | PCM.HP.STD ---
Problem List (1) ALYCE (obstructive sleep apnea) Status: Chronic Comment: CPAP 7 cmH2O (2) Acute and chronic respiratory failure with hypoxia Status: Chronic (3) Diabetes mellitus, type II Status: Chronic Qualifiers: Diabetes mellitus intermediate insulin use: with intermediate use Diabetes mellitus complication status: with other specified complication Qualified Code(s): E11.69 - Type 2 diabetes mellitus with other specified complication; Z79.4 - intermodal owner operator truck driver (current) use of insulin (4) Obesity (BMI 30-39.9) Status: Chronic (5) Benign essential hypertension Status: Chronic History of Present Illness Date of Admission: 09/17/19 Chief Complaint: Shortness of breath- 2 days The patient is a 79 year old F with past medical history of CAD status post CABG, ALYCE on CPAP, chronic respiratory failure likely secondary to chronic interstitial lung disease, chronic diastolic CHF who comes in with progressive shortness of breath worsening over the last 2 days. Patient states that she has been compliant with her CPAP. She admits to bilateral lower extremity swelling, denies orthopnea but admits to PND. She denied any chest pain no dizziness or palpitations. Denied any fever or chills or any sick contacts. Vitals in the ED showed temperature of 90 8.8F, heart rate 66, blood pressure 157/89, respiratory rate 20, SPO2 was 100% on 6 L of oxygen. Patient appeared to have increased work of breathing and appeared anxious. Was given breathing treatment and Ativan. WBC count of 12.3, hemoglobin 11.7, platelet count 205, d-dimer 1.29, sodium 140, potassium 4.1, chloride 100, bicarbonate 30, BUN 30, creatinine 1.66 which is close to her baseline, BN pep of 368, COVID-19 test was negative. Chest x-ray showed no acute findings, moderate cardiomegaly present, right lung scarring Past Medical History Past Medical History (Chronic Problems): Chronic Problems (Last Reviewed 09/15/19 @ 08:38 by Mei Baum NP-C) ALYCE (obstructive sleep apnea) (Chronic) CPAP 7 cmH2O Acute and chronic respiratory failure with hypoxia (Chronic) Diabetes mellitus, type II (Chronic) Obesity (BMI 30-39.9) (Chronic) Secondary pulmonary arterial hypertension (Chronic) H/O coronary artery bypass surgery (Chronic 2000) CABG x 5-DENISE-LAD, SVG-Mid PDA and second posterior descending septal compliance and control analyst, SVG-OM1 and OM2 2000 History of coronary artery stent placement (Chronic 03/12/18) PCI/MONSE MID SVG-PDA w/ 3.0 x 38 mm and BLE-Oqpu-STU-PDA w/ 3.5 x 12 mm Promus Elememt 11/09/2012: MONSE to SVG OM1/OM2 using 3.5 X 12 Promus Synergy, 03/12/2018 Chronic renal failure, stage 4 (severe) (Chronic) Atherosclerosis 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 angina pectoris (Chronic) PCI/MONSE SVG-PDA 11/2012: MONSE to SVG OM1/OM2 using 3.5 X 12 Promus Synergy, 03/12/2018 CABG x 4-DENISE-LAD, SVG-Mid PDA and second posterior descending septal compliance and control analyst, SVG-OM1 and OM2 2000 Dyslipidemia (Chronic) Benign essential hypertension (Chronic) Medical History: Medical History (Last Reviewed 09/15/19 @ 08:38 by Mei Baum NP-C) Secondary pulmonary arterial hypertension (Chronic) I27.21 Chronic renal failure, stage 4 (severe) (Chronic) N18.4 Atherosclerosis 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 angina pectoris (Chronic) I25.810 PCI/MONSE SVG-PDA 11/2012: MONSE to SVG OM1/OM2 using 3.5 X 12 Promus Synergy, 03/12/2018 CABG x 4-DENISE-LAD, SVG-Mid PDA and second posterior descending septal compliance and control analyst, SVG-OM1 and OM2 2000 Dyslipidemia (Chronic) E78.5 Benign essential hypertension (Chronic) I10 Asthma J45.909 GERD (gastroesophageal reflux disease) K21.9 Hypothyroidism E03.9 IBS (irritable bowel syndrome) K58.9 Obstructive sleep apnea G47.33 Rheumatoid arthritis M06.9 TIA (transient ischemic attack) G45.9 Type 2 diabetes mellitus E11.9 Ischemic cardiomyopathy I25.5 Allergies simvastatin [From Zocor] Allergy (Verified 09/17/19 20:08) Unknown lisinopril Adverse Reaction (Severe, Verified 09/17/19 20:08) cough oxycodone [From Percocet] Adverse Reaction (Severe, Verified 09/17/19 20:08) Bad Dreams acetaminophen [From Vicodin] Adverse Reaction (Verified 09/17/19 20:08) Vomiting hydrocodone bitartrate [From Vicodin] Adverse Reaction (Verified 09/17/19 20:08) Vomiting AMMONIUM LACTATE Allergy (Uncoded 09/17/19 20:08) Rash Home Medications: Ambulatory Orders Medication Instructions Recorded Omeprazole [Prilosec] 40 mg PO DAILY 08/23/13 Albuterol Aerosols [Ventolin 2.5 mg INHALATION Q6H PRN PRN 04/02/17 Aerosols] Insulin Regular, Human [Humulin R] 41 unit SQ BID 05/10/17 Calcitriol [Rocaltrol] 0.25 mcg PO DAILY 05/17/17 Allopurinol 100 mg PO BID 03/10/18 Insulin NPH Human [Humulin N Pen] 46 units SUBCUT BID 03/10/18 Oxygen, Home [Home Oxygen] 3 lpm NASAL DAILY 03/10/18 Nitroglycerin (INPATIENT USE) 0.4 mg SUBLINGUAL Q5M PRN #1 bottle 03/13/18 [Nitrostat] amlodipine 5 mg tablet 5 mg PO DAILY #90 tab 08/10/18 lorazepam 0.5 mg tablet 0.5 mg PO BID PRN 10 Days #20 tab 08/10/18 Aspirin [Aspirin, Baby] 81 mg PO DAILY@0800 11/11/18 clopidogrel 75 mg tablet 75 mg PO DAILY #90 tab 02/07/19 Gabapentin [Neurontin] 200 mg PO QHS 02/13/19 Furosemide [Lasix] 40 mg PO BID #90 tab 02/15/19 metoprolol tartrate 25 mg tablet 25 mg PO BID tab 02/22/19 pravastatin 80 mg tablet 40 mg PO QHS #45 tab 03/14/19 budesonide 0.25 mg/2 mL suspension 0.25 mg INHALATION BID #120 ml 04/14/19 for nebulization levalbuterol HCl 0.63 mg/3 mL 0.63 mg INHALATION ONCE #90 ml 04/28/19 solution for nebulization spironolactone 25 mg tablet 25 mg PO DAILY #90 tab 07/29/19 Surgical History: Surgical History (Last Reviewed 09/15/19 @ 08:38 by ANNY Medina) H/O coronary artery bypass surgery (Chronic) Onset Date: 2000 Z95.1 CABG x 5-DENISE-LAD, SVG-Mid PDA and second posterior descending septal compliance and control analyst, SVG-OM1 and OM2 2000 History of coronary artery stent placement (Chronic) Onset Date: 03/12/18 Z95.5 PCI/MONSE MID SVG-PDA w/ 3.0 x 38 mm and RFB-Lgzi-AQF-PDA w/ 3.5 x 12 mm Promus Elememt 11/09/2012: MONSE to SVG OM1/OM2 using 3.5 X 12 Promus Synergy, 03/12/2018 History of section Z98.891 History of cholecystectomy Z90.49 Hx of appendectomy Z90.49 Surgical History: angioplasty, - - CABG x 4, prior PCI, , appendectomy, cholecystectomy. 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 Sibling Family History: Family History (Last Reviewed 09/15/19 @ 08:38 by ANNY Medina) Mother CAD (coronary artery disease) Daughter CAD (coronary artery disease) Abdominal aortic aneurysm (AAA) History Items: Cancer, Diabetes, Heart Disease Maternal Family History: Family History (Last Reviewed 09/15/19 @ 08:38 by ANNY Medina) Mother CAD (coronary artery disease) Daughter CAD (coronary artery disease) Abdominal aortic aneurysm (AAA) History Items: Heart Disease Review of Systems Constitutional: Reports: Fatigue. Denies: Anorexia, Chills, Fever, Malaise, Weakness, Weight Change Eyes: Denies: Blurred vision, Cataracts, Conjunctivae Inflammation, Pain, Redness, Vision Change HEENT: Denies: Difficulty Hearing, Difficulty Swallowing, Head Aches, Hearing Changes, Sinus Congestion, Sinus Drainage, Sore Throat Cardiovascular: Reports: Edema, Paroxysmal Noc. Dyspnea. Denies: Chest Pain, Claudication, Light Headedness, Orthopnea, Palpitations Respiratory: Reports: Shortness of Breath, Shortness of breath at rest, Shortness of breath upon exertion. Denies: Cough, Hemoptysis, Pleuritic Pain, Sputum production, Wheezing Gastrointestinal: Denies: Abdominal Pain, Hematemesis, Hematochezia, Nausea, Vomiting Genitourinary: Denies: Dysuria, Incontinence Musculoskeletal: Denies: Joint Pain, Joint Tenderness Skin: Denies: Rash, Wounds Neurological: Denies: Numbness, Tingling, Focal weakness Psychiatric: Denies: Anxiety, Depression, Homicidal Ideations, Suicidal Ideations Hematologic/ Lymphatic: Denies: Easy Bruising, Easy Bleeding VTE Information - Inpt Only VTE Present on Admission: No VTE Pharm Prophylaxis ordered?: Yes Patient Problems: Active and Suspected Problems (Last Reviewed 09/15/19 @ 08:38 by Mei Baum NP-C) Dyspnea due to congestive heart failure (Acute) D-dimer, elevated (Acute) - Physical Exam Vitals/I&O's: Vital Signs Temp Pulse Resp BP Pulse Ox 98.8 F 81 26 H 157/89 H 100 09/17/19 20:36 09/17/19 20:57 09/17/19 20:57 09/17/19 20:36 09/17/19 20:36 Oxygen Flow Rate (L/min) 6 Oxygen Delivery Method Nasal Cannula Weight: 92.986 kg Body Mass Index (BMI) 36.3 Finger Stick Blood Glucose 169 General: Alert, Oriented x3, Cooperative, - - in moderate respiratory distress, not pale, not jaundiced, on 6L oxygen HEENT: Atraumatic, PERRLA, EOMI, Normocephalic Oral: Moist Mucosa Neck: Supple Lungs: Diminished, Rales - at the lung bases Cardiovascular: Regular rate, Regular Rhythm, Normal S1, Normal S2, No murmurs Abdomen: Bowel Sounds Present, Soft, Non Tender, Non-Distended, No Hepato-splenomegaly Extremities: Edema - bilateral pedal edema +1 Skin: No rashes Musculoskeletal: No Tenderness to Palpation of Joints or Extremities Lymphatic: No Cervical, Supraclavicular, or Inguinal Adenopathy Neurological: Cranial nerves II-XII grossly intact Psych/Mental Status: Normal Affect, Appropriate Laboratory Results 09/17/19 20:30: WBC 12.3 H, RBC 4.05 L, Hgb 11.7 L, Hct 38.0, MCV 93.8, MCH 28.9, MCHC 30.8 L, RDW Std Deviation 49.3 H, RDW Coeff of [place] 14.3, Plt Count 205, MPV 10.8, Immature Gran % (Auto) 0.700, Neut % (Auto) 79.7 H, Lymph % (Auto) 10.5 L, [place] % (Auto) 7.4, Eos % (Auto) 1.4, Baso % (Auto) 0.3, Absolute Neuts (auto) 9.8 H, Absolute Lymphs (auto) 1.29, Nucleated RBC % 0 09/17/19 20:30: Sodium 140, Potassium 4.1, Chloride 100, Carbon Dioxide 33.0 H, Anion Gap 7, BUN 30 H, Creatinine 1.66 H, Estim Creat Clear Calc 23.10, Est GFR (MDRD) Af Amer 38 L, Est GFR (MDRD) Non-Af 32 L, BUN/Creatinine Ratio 18.1, Glucose 103, Calcium 9.1, Troponin I < 0.015 09/17/19 20:30: B-Natriuretic Peptide 368.0 H 09/17/19 20:30: D-Dimer Quant (PE/DVT) Pending Assessment/Plan All Active Problems (Last Reviewed 09/15/19 @ 08:38 by Mei Baum, CORA-C) Dyspnea due to congestive heart failure (Acute) D-dimer, elevated (Acute) Acute diastolic CHF (congestive heart failure) (Acute) 79 year old F with past medical history of CAD status post CABG, ALYCE on CPAP, chronic respiratory failure likely secondary to chronic interstitial lung disease, chronic diastolic CHF who comes in with progressive shortness of breath worsening over the last 2 days. 1. Acute on chronic hypoxic respiratory failure likely secondary to acute on chronic diastolic CHF vs suspected asthma exacerbation vs suspected PE Patient wears 4 L of oxygen at home. COVID-19 test was negative No infiltrates on chest x-ray, admitting BNPep is 368 Started on IV Lasix, will continue with Lasix 40 IV BID, strict I's and O's, fluid restriction, repeat blood work in a.m. Encourage use of CPAP at night. Received 1 dose of Lovenox in the ED Empiric Solu-Medrol 40 mg IV every 8h, breathing treatments PRN, continue budesonide Ride Operator consulted 2. Elevated d-dimer, need to rule out acute PE, Patient has CKD stage III - admitting Cr is close to her baseline Will get VQ scan, pulmo consult, Continue with therapeutic Lovenox until PE is ruled out 3. CAD status post CABG, status post stents, continue on aspirin, Plavix, metoprolol 4. CKD stage III, creatinine is close to baseline 5. Hypertension, slightly uncontrolled, continue on home amlodipine, metoprolol, spironolactone 6. Type II DM, continue on ADA diet, home NPH, blood glucose checks with insulin sliding scale 7. DVT prophylaxis with therapeutic Lovenox 8. CODE STATUS-full code I discussed goals of care with patient and her granddaughter at her bedside. I went on to explain in details the various types of CODE STATUS-full code, DNR CCA, DNR CC. Patient stated that she would like to still be kept alive and would want all measures to be taken to keep her alive should her heart stop or her lungs progressively worsen. Time spent discussing CODE STATUS 18 minutes Inpatient E&M: 70967 Init Hosp L3 Procedures: 39405 Advncd Care Plan 30 Min
[2019-09-17] MEDS: LORazepam 2 MG/ML Syringe 0.5 MG IV (22:31)
[2019-09-17 22:41] LABS: D-Dimer Quantitative (DVT/PE) 1.29 FEU/ug/m (0.27-0.49)
[2019-09-17] MEDS: Enoxaparin 100 MG/ML Syringe 90 MG SC (23:10)
[2019-09-17 23:31] LABS: Probe Check PASS; Specimen Processing Control PASS
[2019-09-17] MEDS: Furosemide 40 MG/4 ML Vial IV (23:54)
[2019-09-18] VITALS (22 sets, daily range): BP systolic 118–166; BP diastolic 43–103; PULSE 61–113; RESP 16–22; TEMP 36.6–37.3; O2SAT 94–100
[2019-09-18] MEDS: Pravastatin 40 MG Tablet PO ×2 (00:44→21:57)
[2019-09-18] MEDS: Metoprolol Tartrate 25 MG Tablet PO ×3 (00:44→22:01)
[2019-09-18] MEDS: Gabapentin 100 MG Capsule 200 MG PO ×2 (00:45→21:57)
[2019-09-18] MEDS: 0.9% Saline Lock 10 ML Syringe IV ×2 (00:52→05:03)
[2019-09-18 04:00] LABS: Absolute Lymphocyte Count 0.61 X10^3/uL (0.83-4.51); Absolute Neutrophil Count 11.8 X10^3/uL (2.0-7.7); Basophil# 0.03 X10^3/uL; Basophil% 0.2 % (0-1); Hematocrit 34.3 % (37-47); Hemoglobin 10.6 g/dL (12.0-15.0); Lymphocyte # 0.61 X10^3/ul (4.0); Lymphocyte % 4.8 % (19-41); Mean Corp Hgb Conc 30.9 g/dL (32-36); Mean Corpuscular Hgb 28.8 pg (27.0-32.0); Mean Corpuscular Volume 93.2 fL (81-99); Mean Platelet Vol. 11.1 fl (6.2-12.0); Monocyte# 0.31 X10^3/uL; Monocyte% 2.4 % (0-10); NRBC Flagged by Analyzer 0 % (0-5); Neutrophil # 11.76 X10^3/uL (2.7-7.7); Neutrophil % 92.1 % (47-70); Platelet Count 178 K/mm3 (150-450); RBC Distribution Width CV 14.6 % (11.6-14.6); RBC Distribution Width SD 48.8 fl (35.1-43.9); Red Blood Count 3.68 M/mm3 (4.2-5.4); White Blood Count 12.8 K/mm3 (4.4-11.0)
[2019-09-18 04:11] LABS: ALB/GLOB Ratio 0.6 RATIO (0.9-2.4); AST(SGOT) 25 U/L (15-37); Alanine Aminotransfer ALT/SGPT 25 U/L (13-56); Albumin, Serum 2.9 g/dL (3.2-5.0); Alkaline Phosphatase 94 U/L (45-117); Anion Gap 6 (5-15); BUN 33 mg/dL (7-18); BUN/Creat Ratio 18.2 RATIO (10-20); Calcium,Total 8.6 mg/dL (8.5-10.1); Chloride 100 mmol/L (98-107); Creatinine, Serum 1.81 mg/dL (0.55-1.02); EST Glomerular Filtration Rate 29 mL/min (>60); Est Glom Filt Rate - Afr Amer 35 mL/min (>60); Estimated Creatinine Clearance 21.19 ml/min; Globulin 4.5 g/dL (2.2-4.2); Glucose 212 mg/dL (74-106); Potassium 5.1 mmol/L (3.5-5.1); Protein, Total 7.4 g/dL (6.4-8.2); Sodium Level 137 mmol/L (136-145)
--- NOTE | 2019-09-18 07:14 | CON.PCM_ITS ---
Problem List (1) Dyspnea due to congestive heart failure Status: Acute (2) ALYCE (obstructive sleep apnea) Status: Chronic Comment: CPAP 7 cmH2O (3) Acute diastolic CHF (congestive heart failure) Status: Acute (4) Diabetes mellitus, type II Status: Chronic Qualifiers: Diabetes mellitus terminal computer operator insulin use: with terminal computer operator use Diabetes mellitus complication status: with other specified complication Qualified Code(s): E11.69 - Type 2 diabetes mellitus with other specified complication; Z79.4 - terminal superintendent (current) use of insulin (5) Obesity (BMI 30-39.9) Status: Chronic (6) Secondary pulmonary arterial hypertension Status: Chronic (7) H/O coronary artery bypass surgery Status: Chronic Comment: CABG x 5-DENISE-LAD, SVG-Mid PDA and second posterior descending septal clerical investigator, SVG-OM1 and OM2 2000 (8) History of coronary artery stent placement Status: Chronic Comment: PCI/MONSE MID SVG-PDA w/ 3.0 x 38 mm and JQU-Jivq-KCB-PDA w/ 3.5 x 12 mm Promus Elememt 11/09/2012: MONSE to SVG OM1/OM2 using 3.5 X 12 Promus Synergy, 03/12/2018 (9) Chronic renal failure, stage 4 (severe) Status: Chronic (10) Dyslipidemia Status: Chronic (11) Benign essential hypertension Status: Chronic Reason for Consult Date of Consultation: 09/18/19 Reason for Consultation: Hypoxia History of Present Illness: The patient is a 79 year old F, with past medical history listed below, who presented was coming hospital on 09/17/2019 secondary to progressive shortness of breath. Patient does have significant respiratory disease at baseline and wears 4 L nasal cannula with CPAP at night. Patient states that normally she can walk approximately 50 yards, but over the last week has gotten aggressively worse. Patient states that she has had a nonproductive cough and she has progressed to the point that she can only walk a few feet. Patient does have some report of shortness of breath at rest on presentation. Patient had increased her oxygen to 6 L/min to maintain saturations. Patient had noted some increased lower extremity edema over the last week and states that this was similar to previous hospitalizations for congestive heart failure, so she came to the ER for evaluation. In the ER, patient was reportedly visibly dyspneic without wheezing. EKG reportedly had junctional rhythm with some PVCs and chest x-ray was read as negative. BNP is approximately 300. D-dimer was elevated, but no CTA was obtained secondary to chronic kidney disease. Patient was placed on weight- based Lovenox, steroids, antibiotics and diuretics and admitted to the [facility] cohort floor. Since being admitted, patient reports subjective improvement in overall condition. Patient states that she continues to feel some shortness of breath with activity, but is resting comfortably without movement. Patient was able to use her home CPAP machine for sleep, but required a 5 L bleed to maintain saturations. Patient states that she started to have symptoms on Thursday, but they progressed to the point that she had to come to the ER for evaluation. Patient states this is very similar to her previous hospitalizations for congestive heart failure. Patient is not reporting any productive sputum. Patient was reporting a chest tightness, especially with exertion. This did not respond to any bronchodilator therapy. Patient denies any dysuria. Patient states that she is relatively immobile at baseline, but has not been on any recent trips or experience trauma. Review of systems otherwise negative from a constitutional, HEENT, respiratory, cardiovascular, GI, genitourinary, musculoskeletal, skin, neurologic, psychiatric and hematologic system unless stated above. Past Medical History Past Medical History (Chronic Problems): Chronic Problems (Last Reviewed 09/15/19 @ 08:38 by Mei Baum NP-C) ALYCE (obstructive sleep apnea) (Chronic) CPAP 7 cmH2O Acute and chronic respiratory failure with hypoxia (Chronic) Diabetes mellitus, type II (Chronic) Obesity (BMI 30-39.9) (Chronic) Secondary pulmonary arterial hypertension (Chronic) H/O coronary artery bypass surgery (Chronic 2000) CABG x 5-DENISE-LAD, SVG-Mid PDA and second posterior descending septal clerical investigator, SVG-OM1 and OM2 2000 History of coronary artery stent placement (Chronic 03/12/18) PCI/MONSE MID SVG-PDA w/ 3.0 x 38 mm and MOL-Bjyr-RRH-PDA w/ 3.5 x 12 mm Promus Elememt 11/09/2012: MONSE to SVG OM1/OM2 using 3.5 X 12 Promus Synergy, 03/12/2018 Chronic renal failure, stage 4 (severe) (Chronic) Atherosclerosis 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 angina pectoris (Chronic) PCI/MONSE SVG-PDA 11/2012: MONSE to SVG OM1/OM2 using 3.5 X 12 Promus Synergy, 03/12/2018 CABG x 4-DENISE-LAD, SVG-Mid PDA and second posterior descending septal clerical investigator, SVG-OM1 and OM2 2000 Dyslipidemia (Chronic) Benign essential hypertension (Chronic) Medical History: Medical History (Last Reviewed 09/15/19 @ 08:38 by Mei Baum NP-C) Secondary pulmonary arterial hypertension (Chronic) I27.21 Chronic renal failure, stage 4 (severe) (Chronic) N18.4 Atherosclerosis 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 angina pectoris (Chronic) I25.810 PCI/MONSE SVG-PDA 11/2012: MONSE to SVG OM1/OM2 using 3.5 X 12 Promus Synergy, 03/12/2018 CABG x 4-DENISE-LAD, SVG-Mid PDA and second posterior descending septal clerical investigator, SVG-OM1 and OM2 2000 Dyslipidemia (Chronic) E78.5 Benign essential hypertension (Chronic) I10 Asthma J45.909 GERD (gastroesophageal reflux disease) K21.9 Hypothyroidism E03.9 IBS (irritable bowel syndrome) K58.9 Obstructive sleep apnea G47.33 Rheumatoid arthritis M06.9 TIA (transient ischemic attack) G45.9 Type 2 diabetes mellitus E11.9 Ischemic cardiomyopathy I25.5 Allergies simvastatin [From Zocor] Allergy (Verified 09/17/19 20:08) Unknown lisinopril Adverse Reaction (Severe, Verified 09/17/19 20:08) cough oxycodone [From Percocet] Adverse Reaction (Severe, Verified 09/17/19 20:08) Bad Dreams acetaminophen [From Vicodin] Adverse Reaction (Verified 09/17/19 20:08) Vomiting hydrocodone bitartrate [From Vicodin] Adverse Reaction (Verified 09/17/19 20:08) Vomiting AMMONIUM LACTATE Allergy (Uncoded 09/17/19 20:08) Rash Home Medications: Ambulatory Orders Medication Instructions Recorded Omeprazole [Prilosec] 40 mg PO DAILY 08/23/13 Albuterol Aerosols [Ventolin 2.5 mg INHALATION Q6H PRN PRN 04/02/17 Aerosols] Insulin Regular, Human [Humulin R] 46 unit SQ TIDCM 05/10/17 Calcitriol [Rocaltrol] 0.25 mcg PO DAILY 05/17/17 Allopurinol 100 mg PO BID 03/10/18 Insulin NPH Human [Humulin N Pen] 41 units SUBCUT BID 03/10/18 Oxygen, Home [Home Oxygen] 3 lpm NASAL DAILY 03/10/18 Nitroglycerin (INPATIENT USE) 0.4 mg SUBLINGUAL Q5M PRN #1 bottle 03/13/18 [Nitrostat] amlodipine 5 mg tablet 5 mg PO DAILY #90 tab 08/10/18 lorazepam 0.5 mg tablet 0.5 mg PO BID PRN 10 Days #20 tab 08/10/18 Aspirin [Aspirin, Baby] 81 mg PO DAILY@0800 11/11/18 clopidogrel 75 mg tablet 75 mg PO DAILY #90 tab 02/07/19 Gabapentin [Neurontin] 200 mg PO QHS 02/13/19 metoprolol tartrate 25 mg tablet 25 mg PO BID tab 02/22/19 pravastatin 80 mg tablet 40 mg PO QHS #45 tab 03/14/19 budesonide 0.25 mg/2 mL suspension 0.25 mg INHALATION BID #120 ml 04/14/19 for nebulization levalbuterol HCl 0.63 mg/3 mL 0.63 mg INHALATION ONCE #90 ml 04/28/19 solution for nebulization spironolactone 25 mg tablet 25 mg PO DAILY #90 tab 07/29/19 Furosemide 40 mg PO 0800 09/18/19 Furosemide [Lasix] 20 mg PO 1700 09/18/19 Surgical History: Surgical History (Last Reviewed 09/15/19 @ 08:38 by Mei Baum NP-C) H/O coronary artery bypass surgery (Chronic) Onset Date: 2000 Z95.1 CABG x 5-DENISE-LAD, SVG-Mid PDA and second posterior descending septal clerical investigator, SVG-OM1 and OM2 2000 History of coronary artery stent placement (Chronic) Onset Date: 03/12/18 Z95.5 PCI/MONSE MID SVG-PDA w/ 3.0 x 38 mm and ZFO-Oybf-AZK-PDA w/ 3.5 x 12 mm Promus Elememt 11/09/2012: MONSE to SVG OM1/OM2 using 3.5 X 12 Promus Synergy, 03/12/2018 History of section Z98.891 History of cholecystectomy Z90.49 Hx of appendectomy Z90.49 Surgical History: angioplasty, - - CABG x 4, prior PCI, , appendectomy, cholecystectomy. Psychiatric History: Anxiety SAND OPERATOR History: No pertinent SAND OPERATOR history Lives: With Family Smoking Status: Never smoker Tobacco Use: Non-smoker Alcohol: None Drugs: None - *Family History Paternal Family History: Family History (Last Reviewed 09/15/19 @ 08:38 by ANNY Medina) Mother CAD (coronary artery disease) Daughter CAD (coronary artery disease) Abdominal aortic aneurysm (AAA) History Items: - - Patient states she does not know her father's history at all. Sibling Family History: Family History (Last Reviewed 09/15/19 @ 08:38 by ANNY Medina) Mother CAD (coronary artery disease) Daughter CAD (coronary artery disease) Abdominal aortic aneurysm (AAA) History Items: Cancer, Diabetes, Heart Disease Maternal Family History: Family History (Last Reviewed 09/15/19 @ 08:38 by ANNY Medina) Mother CAD (coronary artery disease) Daughter CAD (coronary artery disease) Abdominal aortic aneurysm (AAA) History Items: Heart Disease Review of Systems Comment: See HPI Patient Problems: Active and Suspected Problems (Last Reviewed 09/15/19 @ 08:38 by ANNY Medina) Dyspnea due to congestive heart failure (Acute) D-dimer, elevated (Acute) Objective: Chest x-ray was personally reviewed and shows some scarring at the right base and cardiomegaly. Per outpatient documentation, patient had an echocardiogram in November 2018 showing normal LV size with an EF of 65% and pulmonary hypertension. Patient reportedly had PFTs showing obesity related restrictive lung disease, without COPD or asthma, but actual data was not available to be reviewed. Patient does have known obstructive sleep apnea, but no compliance report was available for review on an outpatient basis. - Physical Exam Vitals/I&O's: Vital Signs Temp Pulse Resp BP Pulse Ox 37.3 C 63 18 124/43 H 94 09/18/19 04:41 09/18/19 04:41 09/18/19 04:41 09/18/19 04:41 09/18/19 04:41 Oxygen Flow Rate (L/min) 5 Oxygen Delivery Method CPAP Weight: 93.1 kg Body Mass Index (BMI) 36.1 Finger Stick Blood Glucose 169 Intake and Output for Last 24 Hours 09/16/19 09/17/19 09/18/19 23:59 23:59 23:59 Intake Total 120 / 120 Output Total 400 / 400 Balance -280 / -280 General: Alert, Oriented x3, Cooperative, - - Mild conversational dyspnea. Obese. HEENT: Atraumatic, PERRLA, EOMI, Normocephalic, - - No scleral icterus or injection noted Oral: Moist Mucosa, No Gingival or Mucosal Lesions/ Ulcerations Neck: Supple, No JVD, No Nodes, Trachea Midline Lungs: No rhonchi, No wheeze, Diminished, Rales - Right base Cardiovascular: Regular rate, Regular Rhythm, Normal S1, Normal S2, No murmurs, No rub noted, No Gallop Abdomen: Bowel Sounds Present, Soft, Non Tender, Non-Distended, Obese Extremities: No clubbing, No cyanosis, Edema - Trace to 1+ bilateral lower extremities Skin: - Musculoskeletal: No Tenderness to Palpation of Joints or Extremities Lymphatic: No Cervical, Supraclavicular, or Inguinal Adenopathy Neurological: Cranial nerves II-XII grossly intact, Neuro grossly intact, Motor Exam 5/5 strength throughout Psych/Mental Status: Alert and oriented to time, place, person, mood and affect Laboratory Results 09/17/19 20:30: WBC 12.3 H, RBC 4.05 L, Hgb 11.7 L, Hct 38.0, MCV 93.8, MCH 28.9, MCHC 30.8 L, RDW Std Deviation 49.3 H, RDW Coeff of Lea 14.3, Plt Count 205, MPV 10.8, Immature Gran % (Auto) 0.700, Neut % (Auto) 79.7 H, Lymph % (Auto) 10.5 L, [place] % (Auto) 7.4, Eos % (Auto) 1.4, Baso % (Auto) 0.3, Absolute Neuts (auto) 9.8 H, Absolute Lymphs (auto) 1.29, Nucleated RBC % 0 09/17/19 20:30: Sodium 140, Potassium 4.1, Chloride 100, Carbon Dioxide 33.0 H, Anion Gap 7, BUN 30 H, Creatinine 1.66 H, Estim Creat Clear Calc 23.10, Est GFR (MDRD) Af Amer 38 L, Est GFR (MDRD) Non-Af 32 L, BUN/Creatinine Ratio 18.1, Glucose 103, Calcium 9.1, Troponin I < 0.015 09/17/19 20:30: B-Natriuretic Peptide 368.0 H 09/17/19 20:30: D-Dimer Quant (PE/DVT) 1.29 H* 09/17/19 22:23: COVID-19 ([facility]LEY) Negative 09/18/19 03:30: Troponin I 0.089 H 09/18/19 03:30: WBC 12.8 H, RBC 3.68 L, Hgb 10.6 L, Hct 34.3 L, MCV 93.2, MCH 28.8, MCHC 30.9 L, RDW Std Deviation 48.8 H, RDW Coeff of Le[place] 14.6, Plt Count 178, MPV 11.1, Immature Gran % (Auto) 0.500, Neut % (Auto) 92.1 H, Lymph % (Auto) 4.8 L, [place] % (Auto) 2.4, Eos % (Auto) 0.0, Baso % (Auto) 0.2, Absolute Neuts (auto) 11.8 H, Absolute Lymphs (auto) 0.61 L, Nucleated RBC % 0 09/18/19 03:30: Sodium 137, Potassium 5.1, Chloride 100, Carbon Dioxide 31.0, Anion Gap 6, BUN 33 H, Creatinine 1.81 H, Estim Creat Clear Calc 21.19, Est GFR (MDRD) Af Amer 35 L, Est GFR (MDRD) Non-Af 29 L, BUN/Creatinine Ratio 18.2, Glucose 212 H, Calcium 8.6, Total Bilirubin 0.60, AST 25, ALT 25, Alkaline Phosphatase 94, Total Protein 7.4, Albumin 2.9 L, Globulin 4.5 H, Albumin/Globulin Ratio 0.6 L Current Medications Acetaminophen (Tylenol) 650 mg PO Q6H PRN PRN PRN Reason: Pain Score 1-10/10 Albuterol/Ipratropium (Duoneb) 3 ml INHALATION Q4HWA.RT PETAR Allopurinol (Zyloprim) 100 mg PO BIDCM PETAR Amlodipine Besylate (Norvasc) 5 mg PO DAILY PETAR Aspirin (Aspirin, Baby) 81 mg PO DAILY@0800 [facility] Calcitriol (Rocaltrol) 0.25 mcg PO DAILY [facility] Clopidogrel Bisulfate (Plavix) 75 mg PO DAILY [facility] Dextrose (D50w Syringe) 0 gm IV X1 PRN; Protocol PRN Reason: Hypoglycemia Enoxaparin Sodium (Lovenox) 90 mg SC DAILY [facility] Furosemide (Lasix) 40 mg IV BID@1000,1800 [facility] Gabapentin (Neurontin) 200 mg PO QHS [facility] Last Admin: 09/18/19 00:45 Dose: 200 mg Documented by: Glucagon () 1 mg IM .X1 PRN PRN Reason: Hypoglycemia Hydralazine HCl (Apresoline Iv) 5 mg IV Q6H PRN PRN PRN Reason: BLOOD PRESSURE Sodium Chloride () 250 mls @ 15 mls/hr IV .[id number] PRN PRN Reason: Saline Flush Sodium Chloride () 250 mls @ 15 mls/hr IV .[id number] PRN PRN Reason: Additional IVPB Infusion Insulin Human Lispro (Humalog Kwikpen (Bkc)) 0 unit SC 4X/DAYCM [facility]; Protocol Insulin Human Lispro (Humalog Kwikpen (Bkc)) 46 unit SC TIDCM [facility] Insulin Human NPH (Humulin N (Bk)) 41 units SC BIDCM [facility] Lorazepam (Ativan) 0.5 mg PO BID PRN PRN PRN Reason: ANXIETY Methylprednisolone (Solu-Medrol) 40 mg IV Q8 [facility] Last Admin: 09/18/19 05:03 Dose: 40 mg Documented by: Metoprolol Tartrate (Lopressor (Beta Stephen)) 25 mg PO BID [facility] Last Admin: 09/18/19 00:44 Dose: 25 mg Documented by: Nitroglycerin (Nitrostat) 0.4 mg SUBLINGUAL Q5M PRN PRN Reason: CARDIAC/CHEST PAIN Ondansetron HCl (Zofran) 4 mg IV Q8H PRN PRN PRN Reason: NAUSEA/VOMITING Pantoprazole Sodium (Protonix) 40 mg PO DAILY [facility] Pravastatin Sodium (Pravachol) 40 mg PO QHS [facility] Last Admin: 09/18/19 00:44 Dose: 40 mg Documented by: Sodium Chloride () 10 - 40 ml IV UD PRN PRN Reason: SALINE FLUSH Last Admin: 09/18/19 05:03 Dose: 20 ml Documented by: Spironolactone (Aldactone) 25 mg PO DAILY PETAR Clinical Impression(s) from Imaging Studies Chest X-Ray 09/17/19 20:47 IMPRESSION: 1. No acute findings or change since prior. 2. Moderate cardiomegaly, prior open heart surgery. 3. Right lung base scarring. Electronically Signed: Kolby Rowe, at 20:57 EDT Tel , Service support , Assessment/Plan All Active Problems (Last Reviewed 09/15/19 @ 08:38 by Mei Baum, CORA-Jax) Dyspnea due to congestive heart failure (Acute) D-dimer, elevated (Acute) Acute diastolic CHF (congestive heart failure) (Acute) RECOMMENDATIONS: 1. Continue diuresis as tolerated 2. Increase activity as tolerated 3. Okay to continue with empiric antibiotics, anticoagulation and bronchodilators for now 4. Continue nocturnal CPAP therapy per home regimen. 5. Antibiotics can be discontinued from my perspective if culture negative at 48 hours 6. Continue basal insulin regimen and maintain high intensity sliding scale coverage. 7. Await VQ scan IMPRESSIONS: 1. Acute on chronic hypoxemic respiratory insufficiency Patient with increased oxygen demands on presentation. Patient with rapid response to diuretic therapy. Clinical suspicion for exacerbation of pulmonary hypertension versus congestive heart failure. Patient did give placed on steroids, antibiotics and bronchodilators, but it would be assumed that this would take more time to take effect. Reasonable to continue these for 24 to 48 hours, but clinical suspicion is that these could be discontinued rapidly if patient continues to improve. Reasonable to evaluate for CTEPH versus acute PE with VQ scan. Continue empiric anticoagulation for now. 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 Recommend continued optimization of the patient's volume status. Continue nocturnal CPAP therapy. 3. Decompensated heart failure with preserved ejection fraction/troponin elevation Cardiology is not currently following. Continue medical management per their recommendations. The patient did undergo cardiac catheterization with subsequent drug-eluting stent placement in the past. 4. Obstructive sleep apnea Continue nocturnal CPAP therapy with a pressure support of 7 cm of water with a 3 L/min supplemental oxygen bleed in, per home regimen. 5. Uncontrolled hypertension and diabetes Again, the patient presented to the hospital with a systolic blood pressure in excess of 200 mmHg. Her hemoglobin A1c is in excess of 9. It does appear that her chronic hypertension and diabetes is under poor control. Recommend continued medical optimization of the aforementioned. Continue basal insulin regimen and sliding scale coverage. 6. Lactic acidemia Likely secondary to hypoxemia and increased work of breathing noted on arrival. This has improved. There is no indication to continue to check subsequent serum lactate levels. 7. Coronary artery disease status post CABG/anxiety/hyperlipidemia/GERD/obesity Complicates care, management, recovery and prognosis. Okay to continue home medications from my perspective. Inpatient E&M: 17497 Init Hosp L3
[2019-09-18] MEDS: Ipratropium/Albuterol Sulfate 3 ML AMPUL.NEB INHALATION ×4 (07:23→18:55)
[2019-09-18] MEDS: Enoxaparin 100 MG/ML Syringe 90 MG SC (08:26)
[2019-09-18] MEDS: Spironolactone 25 MG Tablet PO (08:27)
[2019-09-18] MEDS: amLODIPine 5 MG Tablet PO (08:27)
[2019-09-18] MEDS: Allopurinol 100 MG Tablet PO ×2 (08:27→16:03)
[2019-09-18] MEDS: Calcitriol 0.25 MCG Capsule PO (08:27)
[2019-09-18] MEDS: Pantoprazole Sodium 40 MG Tablet PO (08:27)
[2019-09-18] MEDS: Insulin NPH Human 100 UNITS/ML PEN 41 UNITS SC ×2 (08:29→16:54)
[2019-09-18] MEDS: Aspirin 81 MG TAB.CHEW PO (08:29)
[2019-09-18] MEDS: Clopidogrel Bisulfate 75 MG Tablet PO (08:29)
[2019-09-18] MEDS: Furosemide 40 MG/4 ML Vial IV (08:31)
[2019-09-18 08:36] LABS: Bedside Glucose 322 mg/dL (70-110)
[2019-09-18] MEDS: Insulin Lispro 100 UNIT/ML INSULN.PEN SC ×4 (08:38→21:57)
[2019-09-18] MEDS: Insulin Lispro 100 UNIT/ML INSULN.PEN 46 UNIT SC ×3 (08:39→16:55)
--- NOTE | 2019-09-18 11:04 | ECHOD_ITS ---
Reason For Study: CHF Procedure This was a 2D Doppler, Color Flow transthoracic echocardiogram. The study was technically difficult. Unable to utilize Definity due to increased pressures. Exam performed portable in patient room. Left Ventricle Normal LV size. The estimated ejection fraction is 45 %. No regional wall motion abnormalities noted. Right Ventricle Normal RV size. Normal systolic function. Atria Normal left atrium. Normal right atrium. Mitral Valve Normal mitral valve. Tricuspid Valve Normal tricuspid valve. Mild to moderate (1-2+) tricuspid valve insufficiency. Pulmonary artery systolic pressure is 54 mmHg. Moderate pulmonary hypertension. Aortic Valve The aortic valve is not well visualized. Pulmonic Valve The pulmonic valve is not well visualized. Great Vessels Normal aortic root. The pulmonary artery is normal size. The inferior vena cava is dilated. Pericardium/Pleural No pericardial effusion. MMode/2D Measurements & Calculations LVIDd: 5.2 cm IVSd: 1.00 cm LA dimension: 4.2 cm LVIDs: 3.8 cm LVPWd: 1.3 cm FS: 27.0 % LAV(MOD-bp): 59.7 ml LA A4 area: 21.2 cm2 RA A4 area: 11.1 cm2 LAV(MOD-bp) Indexed: 30.4 ml/m2 LAV(MOD-sp2): 48.5 ml LAV(MOD-sp4): 66.0 ml Time Measurements MV dec time: 0.18 sec Doppler Measurements & Calculations MV E max doug: 145.7 cm/sec Lat Peak E' Doug: 8.7 cm/sec Med Peak E' Doug: 5.0 cm/sec MV A max doug: 86.9 cm/sec E/E' lat: 16.7 E/E' med: 28.9 MV E/A: 1.7 MV V2 max: 167.6 cm/sec MV P1/2t max doug: 169.5 cm/sec Ao V2 max: 176.9 cm/sec MV max P.2 mmHg MV P1/2t: 57.6 msec Ao max P.5 mmHg MV V2 mean: 87.2 cm/sec MV dec slope: 861.8 cm/sec2 MV mean P.6 mmHg MVA(P1/2t): 3.8 cm2 MV V2 VTI: 40.0 cm LV V1 max: 129.9 cm/sec PA V2 max: 124.6 cm/sec TR max doug: 351.6 cm/sec LV V1 max P.8 mmHg TR max P.4 mmHg Interpretation Summary Normal LV size. The estimated ejection fraction is 45 %. No regional wall motion abnormalities noted. Mild to moderate (1-2+) tricuspid valve insufficiency. Pulmonary artery systolic pressure is 54 mmHg. Moderate pulmonary hypertension. Ordering Physician: Ritika Pereyra Referring Physician: Sierra Hyatt Performed By: Bernard Doty RCS
--- NOTE | 2019-09-18 11:26 | PCM.PN.HOSP ---
Patient Problems: Active and Suspected Problems (Last Reviewed 09/15/19 @ 08:38 by Mei Baum NP-C) Dyspnea due to congestive heart failure (Acute) D-dimer, elevated (Acute) Subjective: Pt state that she is feeling a lot better. Back to 4 L nasal cannula and just reduced by me to 3 L which is her home baseline dose. States she feels almost back to baseline. Does admit that she is tired of being in and out of the hospital all the time when we discuss her code status and is interested in talking to palliative care and hospice regarding options. Would like to be DNR-CCA ok for short term intubation Vitals/I&O's: Vital Signs Temp Pulse Resp BP Pulse Ox 97.9 F 66 18 153/59 H 99 09/18/19 09:00 09/18/19 09:00 09/18/19 09:00 09/18/19 09:00 09/18/19 09:00 Oxygen Flow Rate (L/min) 4 Oxygen Delivery Method Nasal Cannula Weight: 93.1 kg Body Mass Index (BMI) 36.1 Finger Stick Blood Glucose 169 Intake and Output for Last 24 Hours 09/16/19 09/17/19 09/18/19 23:59 23:59 23:59 Intake Total 120 / 120 Output Total 400 / 400 Balance -280 / -280 General: Alert, Oriented x3, Cooperative, No apparent distress, Well developed, Well nourished, - - Obese WF, sitting up in bed on nasal cannula, appears comfortable, very jovial and pleasant HEENT: Atraumatic, PERRLA, EOMI, Normocephalic, EAC Clear Oral: Moist Mucosa, No Gingival or Mucosal Lesions/ Ulcerations, - - thrush Neck: Supple, No Nodes, Trachea Midline, Thyroid Normal Size and Texture Lungs: No rhonchi, No wheeze, No rales, Diminished - base B ravi at bases Cardiovascular: Regular rate, Regular Rhythm, Normal S1, Normal S2, No murmurs, No rub noted, No Gallop, - - intermittent ectopy Abdomen: Bowel Sounds Present, Soft, Non Tender, Non-Distended, No Hepato-splenomegaly, Obese, No hernias noted Extremities: No clubbing, No cyanosis, No edema, Capillary Refill Less than 3 Seconds, Peripheral Pulses Normal Skin: No rashes, No breakdown Musculoskeletal: No Tenderness to Palpation of Joints or Extremities, No Muscle Wasting, Arthritic Changes Lymphatic: No Cervical, Supraclavicular, or Inguinal Adenopathy Neurological: Cranial nerves II-XII grossly intact, Deep Tendon Reflexes 2+/4 and Symmetrical, Neuro grossly intact, Motor Exam 5/5 strength throughout, Muscle tone normal, Coordination normal Psych/Mental Status: Normal Affect, Appropriate, Alert and oriented to time, place, person, mood and affect Laboratory Results 09/17/19 20:30: WBC 12.3 H, RBC 4.05 L, Hgb 11.7 L, Hct 38.0, MCV 93.8, MCH 28.9, MCHC 30.8 L, RDW Std Deviation 49.3 H, RDW Coeff of Lea 14.3, Plt Count 205, MPV 10.8, Immature Gran % (Auto) 0.700, Neut % (Auto) 79.7 H, Lymph % (Auto) 10.5 L, Major % (Auto) 7.4, Eos % (Auto) 1.4, Baso % (Auto) 0.3, Absolute Neuts (auto) 9.8 H, Absolute Lymphs (auto) 1.29, Nucleated RBC % 0 09/17/19 20:30: Sodium 140, Potassium 4.1, Chloride 100, Carbon Dioxide 33.0 H, Anion Gap 7, BUN 30 H, Creatinine 1.66 H, Estim Creat Clear Calc 23.10, Est GFR (MDRD) Af Amer 38 L, Est GFR (MDRD) Non-Af 32 L, BUN/Creatinine Ratio 18.1, Glucose 103, Calcium 9.1, Troponin I < 0.015 09/17/19 20:30: B-Natriuretic Peptide 368.0 H 09/17/19 20:30: D-Dimer Quant (PE/DVT) 1.29 H* 09/17/19 22:23: COVID-19 ([facility]) Negative 09/18/19 03:30: Troponin I 0.089 H 09/18/19 03:30: WBC 12.8 H, RBC 3.68 L, Hgb 10.6 L, Hct 34.3 L, MCV 93.2, MCH 28.8, MCHC 30.9 L, RDW Std Deviation 48.8 H, RDW Coeff of Lea 14.6, Plt Count 178, MPV 11.1, Immature Gran % (Auto) 0.500, Neut % (Auto) 92.1 H, Lymph % (Auto) 4.8 L, Major % (Auto) 2.4, Eos % (Auto) 0.0, Baso % (Auto) 0.2, Absolute Neuts (auto) 11.8 H, Absolute Lymphs (auto) 0.61 L, Nucleated RBC % 0 09/18/19 03:30: Sodium 137, Potassium 5.1, Chloride 100, Carbon Dioxide 31.0, Anion Gap 6, BUN 33 H, Creatinine 1.81 H, Estim Creat Clear Calc 21.19, Est GFR (MDRD) Af Amer 35 L, Est GFR (MDRD) Non-Af 29 L, BUN/Creatinine Ratio 18.2, Glucose 212 H, Calcium 8.6, Total Bilirubin 0.60, AST 25, ALT 25, Alkaline Phosphatase 94, Total Protein 7.4, Albumin 2.9 L, Globulin 4.5 H, Albumin/Globulin Ratio 0.6 L 09/18/19 08:24: POC Glucose 322 H Current Medications Acetaminophen (Tylenol) 650 mg PO Q6H PRN PRN PRN Reason: Pain Score 1-10/10 Albuterol/Ipratropium (Duoneb) 3 ml INHALATION Q4HWA.RT [facility] Last Admin: 09/18/19 07:23 Dose: 3 ml Documented by: Allopurinol (Zyloprim) 100 mg PO BIDCM [facility] Last Admin: 09/18/19 08:27 Dose: 100 mg Documented by: Amlodipine Besylate (Norvasc) 5 mg PO DAILY [facility] Last Admin: 09/18/19 08:27 Dose: 5 mg Documented by: Aspirin (Aspirin, Baby) 81 mg PO DAILY@0800 [facility] Last Admin: 09/18/19 08:29 Dose: 81 mg Documented by: Calcitriol (Rocaltrol) 0.25 mcg PO DAILY [facility] Last Admin: 09/18/19 08:27 Dose: 0.25 mcg Documented by: Clopidogrel Bisulfate (Plavix) 75 mg PO DAILY [facility] Last Admin: 09/18/19 08:29 Dose: 75 mg Documented by: Dextrose (D50w Syringe) 0 gm IV X1 PRN; Protocol PRN Reason: Hypoglycemia Enoxaparin Sodium (Lovenox) 90 mg SC DAILY [facility] Last Admin: 09/18/19 08:26 Dose: 90 mg Documented by: Furosemide (Lasix) 40 mg IV DAILY [facility] Gabapentin (Neurontin) 200 mg PO QHS [facility] Last Admin: 09/18/19 00:45 Dose: 200 mg Documented by: Glucagon () 1 mg IM .X1 PRN PRN Reason: Hypoglycemia Hydralazine HCl (Apresoline Iv) 5 mg IV Q6H PRN PRN PRN Reason: BLOOD PRESSURE Sodium Chloride () 250 mls @ 15 mls/hr IV .[id number] PRN PRN Reason: Saline Flush Sodium Chloride () 250 mls @ 15 mls/hr IV .[id number] PRN PRN Reason: Additional IVPB Infusion Insulin Human Lispro (Humalog Kwikpen (Bkc)) [facility] Protocol Last Admin: 09/18/19 08:38 Dose: 3 u Documented by: Insulin Human Lispro (Humalog Kwikpen (Bkc)) 46 unit SC TIDCM [facility] Last Admin: 09/18/19 08:39 Dose: 46 u Documented by: Insulin Human NPH (Humulin N (Bk)) [facility] Last Admin: 09/18/19 08:29 Dose: 41 unit Documented by: Lorazepam (Ativan) 0.5 mg PO BID PRN PRN PRN Reason: ANXIETY Metoprolol Tartrate (Lopressor (Beta Stephen)) 25 mg PO BID [facility] Last Admin: 09/18/19 08:27 Dose: 25 mg Documented by: Nitroglycerin (Nitrostat) 0.4 mg SUBLINGUAL Q5M PRN PRN Reason: CARDIAC/CHEST PAIN Ondansetron HCl (Zofran) 4 mg IV Q8H PRN PRN PRN Reason: NAUSEA/VOMITING Pantoprazole Sodium (Protonix) 40 mg PO DAILY [facility] Last Admin: 09/18/19 08:27 Dose: 40 mg Documented by: Pravastatin Sodium (Pravachol) 40 mg PO QHS [facility] Last Admin: 09/18/19 00:44 Dose: 40 mg Documented by: Prednisone () 40 mg PO DAILY@0800 [facility] Sodium Chloride () 10 - 40 ml IV UD PRN PRN Reason: SALINE FLUSH Last Admin: 09/18/19 05:03 Dose: 20 ml Documented by: Spironolactone (Aldactone) 25 mg PO DAILY [facility] Last Admin: 09/18/19 08:27 Dose: 25 mg Documented by: STROKE Vital Signs/Narrative: Vital Signs Temp Pulse Resp BP Pulse Ox 09/18/19 09:00 97.9 F 66 18 153/59 H 99 09/18/19 08:29 84 09/18/19 08:27 81 Medical Necessity - Tobacco Use Smoking Status: Never smoker Tobacco Use: Non-smoker Assessment/Plan All Active Problems (Last Reviewed 09/15/19 @ 08:38 by Mei Baum, [employer] MANAGER-C) Dyspnea due to congestive heart failure (Acute) D-dimer, elevated (Acute) Acute diastolic CHF (congestive heart failure) (Acute) Acute on Chronic Respiratory Failure-multifactorial -initially with increase O2 requirement but now back to baseline of 3 L -suspect HFpEF decompensation as pt better with diuresis -reduce to 40 mg IVP daily -wean from solumedrol to prednisone daily -continue Nebs -VQ scan pending with elevated d-dimer (mild elevation) -no suspicion for infection -pulm following HFpEF/Troponin elevation -no CP -HF now compensated -repeat troponin -had stress test 1 yr ago that was neg for inducible ischemia -will check ECHO for WMA -asa daily -cut lasix to daily IVP from BID (takes 40 po in am and 20 po at hs at home) Lactic acidosis -suspect 2/2 hypoxia -trended down ALYCE -continue CPAP at HS with 7 cm 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 Would like to talk to palliative care and hospice about options ongoing but isn't sure that she is quite ready for hospice as of yet. SUMMARY 79 yo with Chronic Respiratory Failure (multifactorial). Suspect related to HFpEF as she responded well to lasix. Back to baseline today. VQ ordered and pt on full dose Lovenox for now. Elevated troponin (neg stress 1 yr ago) ECHO pending. On asa and plavix. BGT elevated with steroids but I decreased steroids today. ESTEBAN on CKD--> reduction in lasix today. Pt tired of repeat admissions but not sure if she is ready for hospice--> would like to talk to palliative care and hospice about options. Possible d/c 09/18 if w/u negative. Inpatient E&M: 84030 Subs Hosp L3
[2019-09-18 12:11] LABS: Bedside Glucose 486 mg/dL (70-110)
--- NOTE | 2019-09-18 15:00 | NURSING ---
This RN returned pt's home meds with her niece, Malka per pt request.
[2019-09-18 17:10] LABS: Bedside Glucose 484 mg/dL (70-110)
[2019-09-18] MEDS: LORazepam 0.5 MG Tablet PO (19:23)
--- NOTE | 2019-09-18 19:56 | EKG12_ITS ---
Test Reason : SOB Blood Pressure : / mmHG Vent. Rate : 079 BPM Atrial Rate : 075 BPM P-R Int : 000 ms QRS Dur : 122 ms QT Int : 408 ms P-R-T Axes : 000 036 129 degrees QTc Int : 467 ms Atrial fibrillation Anterior infarct , age undetermined Abnormal ECG Confirmed by YVES CURRY, AMBER ([id number]), clinical editor LALA KENNEDY ([id number]) on 09/19/2019 1:13:04 PM Referred By: iSerra Hyatt Confirmed By:AMBER MARINELLI MD
[2019-09-18] MEDS: Nitroglycerin (INPATIENT USE) 0.4 MG TAB.SUBL SUBLINGUAL (20:09)
[2019-09-18 21:55] LABS: Glucose 681 mg/dL (74-106)
[2019-09-18] MEDS: Insulin Lispro 100 UNIT/ML INSULN.PEN 15 UNIT SC (21:56)
[2019-09-18] MEDS: Insulin Lispro 100 UNIT/ML INSULN.PEN 10 UNIT SC (23:29)
[2019-09-18 23:36] LABS: Bedside Glucose > 500 mg/dL (70-110)
[2019-09-19] VITALS (10 sets, daily range): BP systolic 143–150; BP diastolic 42–68; PULSE 74–87; RESP 14–20; TEMP 36.6–36.9; O2SAT 92–97
[2019-09-19 01:21] LABS: Bedside Glucose 481 mg/dL (70-110)
[2019-09-19 03:21] LABS: Bedside Glucose 451 mg/dL (70-110)
[2019-09-19 05:33] LABS: Anion Gap 9 (5-15); BUN 60 mg/dL (7-18); BUN/Creat Ratio 26.3 RATIO (10-20); Calcium,Total 9.3 mg/dL (8.5-10.1); Chloride 97 mmol/L (98-107); Creatinine, Serum 2.28 mg/dL (0.55-1.02); EST Glomerular Filtration Rate 22 mL/min (>60); Est Glom Filt Rate - Afr Amer 27 mL/min (>60); Estimated Creatinine Clearance 16.82 ml/min; Glucose 395 mg/dL (74-106); Sodium Level 135 mmol/L (136-145)
--- NOTE | 2019-09-19 05:38 | PCM.PN.BLA ---
Progress Note Informed of patient's BS persistently above 450. Patient's IV Solu-Medrol was switched to oral prednisone. Given SC humalog 10units SC x 1, BS remained above 450 at repeat testing Humalog IV 10 units x1 given STROKE Vital Signs/Narrative: Vital Signs Temp Pulse Resp BP Pulse Ox 09/19/19 03:03 74 09/19/19 03:00 97.8 F 77 18 150/42 H 97
[2019-09-19] MEDS: Ipratropium/Albuterol Sulfate 3 ML AMPUL.NEB INHALATION ×3 (07:09→15:06)
--- NOTE | 2019-09-19 09:28 | RAD_ITS ---
STUDY: X-RAY CHEST REASON FOR EXAM: Female, 79 years old. SOB AND COUGH. RESP FAILURE TECHNIQUE: PA and lateral views of the chest. COMPARISON: 09/17/2019 FINDINGS: Status post median sternotomy. The lungs are clear and expanded. Elevated right hemidiaphragm which is unchanged. Normal size heart. Normal mediastinum and billy. Normal visualized pulmonary arteries. Normal visualized aortic arch and descending thoracic aorta. Normal visualized thoracic spine. Normal visualized ribs, clavicles, and shoulders. There is no demonstrated abnormality of the visualized soft tissue structures of the upper abdomen. RAD/Chest PA and Lateral IMPRESSION: No active disease. Electronically Signed: Jim Kim MD at 9:51 EDT Tel , Service support ,
--- NOTE | 2019-09-19 09:30 | NM_ITS ---
CLINICAL: Female, 79 years old. SHORT OF BREATH -- CHF -- ELEVATED D-DIMER NUCLEAR VENTILATION/PERFUSION - LUNG TECHNIQUE: The patient was administered 5.7 mCi of Tc MAA followed by a perfusion lung scan. The patient was administered 48 mCi of Tc DTPA aerosol followed by a ventilation lung scan. Comparison made to prior chest radiograph dated today. COMPARISON STUDIES : NM - None. CR - Not available for review at this time. CT - Not available for review at this time. MR - Not available for review at this time. FINDINGS: The pulmonary perfusion study demonstrates uniform perfusion throughout both lung rolle. There are no demonstrated segmental or subsegmental perfusion defects The ventilation study demonstrates uniform ventilation throughout both lung rolle. There are no segmental or subsegmental ventilation abnormalities. NM/Lung Scan Vent/Perf IMPRESSION: Normal 99m Tc MAA pulmonary perfusion Tc DTPA aerosol ventilation imaging survey, according to revised PIOPED interpretive criteria. Electronically Signed: Jim Kim MD at 9:41 EDT Tel , Service support ,
[2019-09-19 10:01] LABS: Bedside Glucose 390 mg/dL (70-110)
[2019-09-19] MEDS: Allopurinol 100 MG Tablet PO ×2 (10:05→16:32)
[2019-09-19] MEDS: Clopidogrel Bisulfate 75 MG Tablet PO (10:05)
[2019-09-19] MEDS: Calcitriol 0.25 MCG Capsule PO (10:05)
[2019-09-19] MEDS: amLODIPine 5 MG Tablet PO (10:05)
[2019-09-19] MEDS: Pantoprazole Sodium 40 MG Tablet PO (10:05)
[2019-09-19] MEDS: Spironolactone 25 MG Tablet PO (10:06)
[2019-09-19] MEDS: Insulin NPH Human 100 UNITS/ML PEN 41 UNITS SC ×2 (10:07→16:29)
[2019-09-19] MEDS: Insulin Lispro 100 UNIT/ML INSULN.PEN SC ×3 (10:08→16:27)
[2019-09-19] MEDS: Insulin Lispro 100 UNIT/ML INSULN.PEN 46 UNIT SC ×3 (10:08→16:28)
[2019-09-19] MEDS: Aspirin 81 MG TAB.CHEW PO (10:15)
[2019-09-19] MEDS: predniSONE 20 MG Tablet 40 MG PO (10:15)
[2019-09-19] MEDS: Metoprolol Tartrate 25 MG Tablet PO (10:15)
[2019-09-19] MEDS: Furosemide 40 MG/4 ML Vial IV (10:17)
[2019-09-19] MEDS: 0.9% Saline Lock 10 ML Syringe IV (10:17)
[2019-09-19] MEDS: Enoxaparin 100 MG/ML Syringe 90 MG SC (10:17)
--- NOTE | 2019-09-19 10:55 | PCM.PN.PUL ---
Subjective: The patient was seen and examined at the bedside this morning. Events from the last 24 hours have been reviewed. The patient is currently afebrile, hemodynamically stable and maintaining appropriate oxygen saturations on 3 L/min via nasal cannula. The patient remains on scheduled IV Lasix. Objective: The patient's most recent lab work, culture data and imaging studies have all been personally reviewed. - Physical Exam Vitals/I&O's: Vital Signs Temp Pulse Resp BP Pulse Ox 97.9 F 78 14 143/68 H 95 09/19/19 09:59 09/19/19 10:15 09/19/19 09:59 09/19/19 10:15 09/19/19 09:59 Oxygen Flow Rate (L/min) 3 Oxygen Delivery Method Nasal Cannula Weight: 207 lb 7.28 oz Body Mass Index (BMI) 36.1 Finger Stick Blood Glucose 169 Intake and Output for Last 24 Hours 09/17/19 09/18/19 09/19/19 23:59 23:59 23:59 Intake Total 560 / 800 460 / 460 Output Total 401 / 701 600 / 600 Balance 159 / 99 -140 / -140 General: Alert, Cooperative, No apparent distress HEENT: Atraumatic, Normocephalic Oral: No Gingival or Mucosal Lesions/ Ulcerations Neck: Supple, No Nodes, Trachea Midline Lungs: Diminished Cardiovascular: Regular rate, Regular Rhythm Abdomen: Bowel Sounds Present, Soft, Non Tender, Obese Extremities: No clubbing, No cyanosis, Edema Skin: No breakdown Musculoskeletal: No Tenderness to Palpation of Joints or Extremities Lymphatic: No Cervical, Supraclavicular, or Inguinal Adenopathy Neurological: Neuro grossly intact Psych/Mental Status: Normal Affect, Appropriate Labs (Last 48 Hours) 09/17/19 09/17/19 09/17/19 20:30 20:30 20:30 WBC 12.3 H RBC 4.05 L Hgb 11.7 L Hct 38.0 MCV 93.8 MCH 28.9 MCHC 30.8 L RDW Std Deviation 49.3 H RDW Coeff of Lea 14.3 Plt Count 205 MPV 10.8 Immature Gran % (Auto) 0.700 Neut % (Auto) 79.7 H Lymph % (Auto) 10.5 L [place] % (Auto) 7.4 Eos % (Auto) 1.4 Baso % (Auto) 0.3 Absolute Neuts (auto) 9.8 H Absolute Lymphs (auto) 1.29 Nucleated RBC % 0 D-Dimer Quant (PE/DVT) Sodium 140 Potassium 4.1 Chloride 100 Carbon Dioxide 33.0 H Anion Gap 7 BUN 30 H Creatinine 1.66 H Estim Creat Clear Calc 23.10 Est GFR (MDRD) Af Amer 38 L Est GFR (MDRD) Non-Af 32 L BUN/Creatinine Ratio 18.1 Glucose 103 Calcium 9.1 Total Bilirubin AST ALT Alkaline Phosphatase Troponin I < 0.015 B-Natriuretic Peptide 368.0 H Total Protein Albumin Globulin Albumin/Globulin Ratio COVID-19 ([facility]) POC Glucose 09/17/19 09/17/19 09/18/19 20:30 22:23 03:30 WBC RBC Hgb Hct MCV MCH MCHC RDW Std Deviation RDW Coeff of Lea Plt Count MPV Immature Gran % (Auto) Neut % (Auto) Lymph % (Auto) [place] % (Auto) Eos % (Auto) Baso % (Auto) Absolute Neuts (auto) Absolute Lymphs (auto) Nucleated RBC % D-Dimer Quant (PE/DVT) 1.29 H* Sodium Potassium Chloride Carbon Dioxide Anion Gap BUN Creatinine Estim Creat Clear Calc Est GFR (MDRD) Af Amer Est GFR (MDRD) Non-Af BUN/Creatinine Ratio Glucose Calcium Total Bilirubin AST ALT Alkaline Phosphatase Troponin I 0.089 H B-Natriuretic Peptide Total Protein Albumin Globulin Albumin/Globulin Ratio COVID-19 ([facility]) Negative POC Glucose 09/18/19 09/18/19 09/18/19 03:30 03:30 08:24 WBC 12.8 H RBC 3.68 L Hgb 10.6 L Hct 34.3 L MCV 93.2 MCH 28.8 MCHC 30.9 L RDW Std Deviation 48.8 H RDW Coeff of Lea 14.6 Plt Count 178 MPV 11.1 Immature Gran % (Auto) 0.500 Neut % (Auto) 92.1 H Lymph % (Auto) 4.8 L [place] % (Auto) 2.4 Eos % (Auto) 0.0 Baso % (Auto) 0.2 Absolute Neuts (auto) 11.8 H Absolute Lymphs (auto) 0.61 L Nucleated RBC % 0 D-Dimer Quant (PE/DVT) Sodium 137 Potassium 5.1 Chloride 100 Carbon Dioxide 31.0 Anion Gap 6 BUN 33 H Creatinine 1.81 H Estim Creat Clear Calc 21.19 Est GFR (MDRD) Af Amer 35 L Est GFR (MDRD) Non-Af 29 L BUN/Creatinine Ratio 18.2 Glucose 212 H Calcium 8.6 Total Bilirubin 0.60 AST 25 ALT 25 Alkaline Phosphatase 94 Troponin I B-Natriuretic Peptide Total Protein 7.4 Albumin 2.9 L Globulin 4.5 H Albumin/Globulin Ratio 0.6 L COVID-19 ([facility]) POC Glucose 322 H 09/18/19 09/18/19 09/18/19 11:58 12:10 16:48 WBC RBC Hgb Hct MCV MCH MCHC RDW Std Deviation RDW Coeff of Lea Plt Count MPV Immature Gran % (Auto) Neut % (Auto) Lymph % (Auto) [place] % (Auto) Eos % (Auto) Baso % (Auto) Absolute Neuts (auto) Absolute Lymphs (auto) Nucleated RBC % D-Dimer Quant (PE/DVT) Sodium Potassium Chloride Carbon Dioxide Anion Gap BUN Creatinine Estim Creat Clear Calc Est GFR (MDRD) Af Amer Est GFR (MDRD) Non-Af BUN/Creatinine Ratio Glucose Calcium Total Bilirubin AST ALT Alkaline Phosphatase Troponin I 0.192 H B-Natriuretic Peptide Total Protein Albumin Globulin Albumin/Globulin Ratio COVID-19 ([facility]) POC Glucose 486 H* 484 H* 09/18/19 09/18/19 09/18/19 20:34 21:26 22:51 WBC RBC Hgb Hct MCV MCH MCHC RDW Std Deviation RDW Coeff of Lea Plt Count MPV Immature Gran % (Auto) Neut % (Auto) Lymph % (Auto) [place] % (Auto) Eos % (Auto) Baso % (Auto) Absolute Neuts (auto) Absolute Lymphs (auto) Nucleated RBC % D-Dimer Quant (PE/DVT) Sodium Potassium Chloride Carbon Dioxide Anion Gap BUN Creatinine Estim Creat Clear Calc Est GFR (MDRD) Af Amer Est GFR (MDRD) Non-Af BUN/Creatinine Ratio Glucose 681 H* Calcium Total Bilirubin AST ALT Alkaline Phosphatase Troponin I 0.131 H B-Natriuretic Peptide Total Protein Albumin Globulin Albumin/Globulin Ratio COVID-19 ([facility]) POC Glucose > 500 H* 09/19/19 09/19/19 09/19/19 01:17 02:33 04:54 WBC RBC Hgb Hct MCV MCH MCHC RDW Std Deviation RDW Coeff of Lea Plt Count MPV Immature Gran % (Auto) Neut % (Auto) Lymph % (Auto) [place] % (Auto) Eos % (Auto) Baso % (Auto) Absolute Neuts (auto) Absolute Lymphs (auto) Nucleated RBC % D-Dimer Quant (PE/DVT) Sodium 135 L Potassium 5.0 Chloride 97 L Carbon Dioxide 29.0 Anion Gap 9 BUN 60 H Creatinine 2.28 H Estim Creat Clear Calc 16.82 Est GFR (MDRD) Af Amer 27 L Est GFR (MDRD) Non-Af 22 L BUN/Creatinine Ratio 26.3 H Glucose 395 H Calcium 9.3 Total Bilirubin AST ALT Alkaline Phosphatase Troponin I B-Natriuretic Peptide Total Protein Albumin Globulin Albumin/Globulin Ratio COVID-19 ([facility]) POC Glucose 481 H* 451 H* 09/19/19 09:51 WBC RBC Hgb Hct MCV MCH MCHC RDW Std Deviation RDW Coeff of Lea Plt Count MPV Immature Gran % (Auto) Neut % (Auto) Lymph % (Auto) [place] % (Auto) Eos % (Auto) Baso % (Auto) Absolute Neuts (auto) Absolute Lymphs (auto) Nucleated RBC % D-Dimer Quant (PE/DVT) Sodium Potassium Chloride Carbon Dioxide Anion Gap BUN Creatinine Estim Creat Clear Calc Est GFR (MDRD) Af Amer Est GFR (MDRD) Non-Af BUN/Creatinine Ratio Glucose Calcium Total Bilirubin AST ALT Alkaline Phosphatase Troponin I B-Natriuretic Peptide Total Protein Albumin Globulin Albumin/Globulin Ratio COVID-19 ([facility]) POC Glucose 390 H Clinical Impression(s) from Imaging Studies Chest X-Ray 09/17/19 20:47 IMPRESSION: 1. No acute findings or change since prior. 2. Moderate cardiomegaly, prior open heart surgery. 3. Right lung base scarring. Electronically Signed: Kolby Rowe at 20:57 EDT Tel , Service support , Chest X-Ray 09/19/19 09:28 IMPRESSION: No active disease. Electronically Signed: Jim Kim MD at 9:51 EDT Tel , Service support , Lung Scan-VQ NM 09/19/19 09:30 IMPRESSION: Normal 99m Tc MAA pulmonary perfusion Tc DTPA aerosol ventilation imaging survey, according to revised PIOPED interpretive criteria. Electronically Signed: Jim Kim MD at 9:41 EDT Tel , Service support , Current Medications Acetaminophen (Tylenol) 650 mg PO Q6H PRN PRN PRN Reason: Pain Score 1-10/10 Albuterol/Ipratropium (Duoneb) 3 ml INHALATION Q4HWA.RT [facility] Last Admin: 09/19/19 07:09 Dose: 3 ml Documented by: Allopurinol (Zyloprim) 100 mg PO BIDCM [facility] Last Admin: 09/19/19 10:05 Dose: 100 mg Documented by: Amlodipine Besylate (Norvasc) 5 mg PO DAILY [facility] Last Admin: 09/19/19 10:05 Dose: 5 mg Documented by: Aspirin (Aspirin, Baby) 81 mg PO DAILY@0800 [facility] Last Admin: 09/19/19 10:15 Dose: 81 mg Documented by: Calcitriol (Rocaltrol) 0.25 mcg PO DAILY [facility] Last Admin: 09/19/19 10:05 Dose: 0.25 mcg Documented by: Clopidogrel Bisulfate (Plavix) 75 mg PO DAILY [facility] Last Admin: 09/19/19 10:05 Dose: 75 mg Documented by: Dextrose (D50w Syringe) 0 gm IV X1 PRN; Protocol PRN Reason: Hypoglycemia Enoxaparin Sodium (Lovenox) 90 mg SC DAILY [facility] Last Admin: 09/19/19 10:17 Dose: 90 mg Documented by: Furosemide (Lasix) 40 mg IV DAILY [facility] Last Admin: 09/19/19 10:17 Dose: 40 mg Documented by: Gabapentin (Neurontin) 200 mg PO QHS [facility] Last Admin: 09/18/19 21:57 Dose: 200 mg Documented by: Glucagon () 1 mg IM .X1 PRN PRN Reason: Hypoglycemia Hydralazine HCl (Apresoline Iv) 5 mg IV Q6H PRN PRN PRN Reason: BLOOD PRESSURE Sodium Chloride () 250 mls @ 15 mls/hr IV .[id number] PRN PRN Reason: Saline Flush Sodium Chloride () 250 mls @ 15 mls/hr IV .[id number] PRN PRN Reason: Additional IVPB Infusion Insulin Human Lispro (Humalog Kwikpen (Bkc)) 0 unit SC 4X/DAYCM [facility]; Protocol Last Admin: 09/19/19 10:08 Dose: 4 u Documented by: Insulin Human Lispro (Humalog Kwikpen (Bk)) 46 unit SC TIDCM [facility] Last Admin: 09/19/19 10:08 Dose: 46 u Documented by: Insulin Human NPH (Humulin N ([facility])) 41 units SC BIDCM [facility] Last Admin: 09/19/19 10:07 Dose: 41 unit Documented by: Lorazepam (Ativan) 0.5 mg PO BID PRN PRN PRN Reason: ANXIETY Last Admin: 09/18/19 19:23 Dose: 0.5 mg Documented by: Metoprolol Tartrate (Lopressor (Beta Stephen)) 25 mg PO BID [facility] Last Admin: 09/19/19 10:15 Dose: 25 mg Documented by: Nitroglycerin (Nitrostat) 0.4 mg SUBLINGUAL Q5M PRN PRN Reason: CARDIAC/CHEST PAIN Last Admin: 09/18/19 20:09 Dose: 0.4 mg Documented by: Ondansetron HCl (Zofran) 4 mg IV Q8H PRN PRN PRN Reason: NAUSEA/VOMITING Pantoprazole Sodium (Protonix) 40 mg PO DAILY [facility] Last Admin: 09/19/19 10:05 Dose: 40 mg Documented by: Pravastatin Sodium (Pravachol) 40 mg PO QHS [facility] Last Admin: 09/18/19 21:57 Dose: 40 mg Documented by: Prednisone () 40 mg PO DAILY@0800 [facility] Last Admin: 09/19/19 10:15 Dose: 40 mg Documented by: Sodium Chloride () 10 - 40 ml IV UD PRN PRN Reason: SALINE FLUSH Last Admin: 09/19/19 10:17 Dose: 20 ml Documented by: Spironolactone (Aldactone) 25 mg PO DAILY [facility] Last Admin: 09/19/19 10:06 Dose: 25 mg Documented by: Medical Necessity - Tobacco Use Smoking Status: Never smoker Tobacco Use: Non-smoker Assessment/Plan All Active Problems (Last Reviewed 09/15/19 @ 08:38 by Mei Baum NP-Jax) Dyspnea due to congestive heart failure (Acute) D-dimer, elevated (Acute) Acute diastolic CHF (congestive heart failure) (Acute) RECOMMENDATIONS: 1. Continue diuretic therapy as tolerated by hemodynamics and renal function. 2. Wean supplemental oxygen to maintain saturations at or above 90%. 3. Okay to discontinue prednisone from my perspective. 4. Repeat echocardiogram is pending. 5. Continue nocturnal Pap therapy per home regimen. IMPRESSIONS: 1. Acute on chronic hypoxemic respiratory failure Likely secondary to acute decompensated heart failure with preserved ejection fraction. VQ scan revealed no evidence concerning for chronic thromboembolic disease. Oxygenation status has improved in the setting of diuresis. There was no evidence of an acute infiltrate or consolidation on chest x-ray. At this time, I would plan to continue diuretic therapy as tolerated by hemodynamics and renal function. Prior pulmonary function studies revealed obesity related restrictive lung disease without evidence of COPD or asthma. Accordingly, systemic steroids can be discontinued from my perspective. 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 Recommend continued optimization of the patient's volume status. Continue nocturnal CPAP therapy. 3. Obstructive sleep apnea Continue nocturnal CPAP therapy with a pressure support of 7 cm of water with a 3 L/min supplemental oxygen bleed in, per home regimen. 4. Uncontrolled hypertension and diabetes Again, the patient presented to the hospital with a systolic blood pressure in excess of 200 mmHg. Her hemoglobin A1c is in excess of 9. It does appear that her chronic hypertension and diabetes are under poor control. Recommend continued medical optimization of the aforementioned. Continue basal insulin regimen and sliding scale coverage. 5. Coronary artery disease status post CABG/anxiety/hyperlipidemia/GERD/obesity Complicates care, management, recovery and prognosis. Okay to continue home medications from my perspective. This note was generated with [employer] software. It may contain incorrect words, spelling, and punctuation that were not noted in checking the note before signing. Inpatient E&M: [id number] [facility] L3
[2019-09-19 12:21] LABS: Bedside Glucose 382 mg/dL (70-110)
--- NOTE | 2019-09-19 13:02 | CASEMGMT ---
Assessment- SW completed assessment with patient at bedside. Living situation- Patient lives with her and granddaughter in a 1 story home with no entry steps. PCP: Dr Jeffrey Lopez Specialists: Dr Santiago: Endocrinology in [place], Dr Magana-Cardiology, Dr Abdias Olvera-Pulmonology, Dr Park-Nephrology in [place], and Podiatry at [facility]: [facility] DME: shower chair, O2-3L continuously, and cpap.(O2 and Cpap are from [facility]) ADL's/IADL's: Patient gets assistance with bathing, dressing, cooking, and cleaning. She has her license, but she does not drive. She and her work together to manage their medications. She does not use an assistive device to get around. She often will hang onto her or granddaughter when walking longer distances. Past SNF/rehab: None Past HH: Yes. [facility]. This would be her preferred agency if home health is recommended LW: None POA: None Plan: Patient has no concerns with going home at discharge. She would like [facility] HH at discharge. She said she normally has them come out when she is discharged from the hospital. Merari CHAPARRO MSW
--- NOTE | 2019-09-19 13:24 | CASEMGMT ---
SW talked with patient about Palliative and Hospice care as it was mentioned in physician's note. She is agreeable to talking with them however, she does not feel like she needs any more services. SW called [facility] and they did receive a referral. They asked that SW notify them when patient is discharged. Merari CHAPARRO MSW
--- NOTE | 2019-09-19 14:06 | CASEMGMT ---
MONA received a call from Whitney at [facility]. She said that she spoke with patient and family and they decided Hospice would be more beneficial at this point. She would like MONA to notify them when patient is ready for discharge. Merari MCDONALD
--- NOTE | 2019-09-19 15:42 | CASEMGMT ---
Dr. Muller spoke with pt's /granddaughter and they do not feel the need for any HHC at this time. Granddaughter lives with pt/ and assists in care. Will ARAIZA CM
--- NOTE | 2019-09-19 15:44 | CASEMGMT ---
Physician spoke with patient's and granddaughter. They are not interested in Hospice at this time. SW called Hospice and notified Whitney that patient and family are not interested in Hospice now. Whitney asked that d/c instructions get faxed to Hospice and she will follow up with family to see if they would like Palliative or no services at all. Merari CHAPARRO MSW
--- NOTE | 2019-09-19 15:56 | DCINST_ITS ---
- Discharge Diagnoses Current Active Problems: Current Active and Chronic Problems (Last Reviewed 09/15/19 @ 08:38 by ANNY Medina) Dyspnea due to congestive heart failure (Acute) D-dimer, elevated (Acute) You will use the following diet at home:: Calorie/Carbohydrate Controlled (specify 1200, 1400, etc) - 1800 viviane Your food should be the consistency of: Regular Your liquids should be the consistency of: Regular/Thin Discharge Activity: Return to Normal Activity Weight Bearing Status: Full weight bearing Additional Instructions: GET BMP DONE THIS THURSDAY OR THURSDAY Allergies/Adverse Reactions: Allergies simvastatin [From Zocor] Allergy (Verified 09/17/19 20:08) Unknown lisinopril Adverse Reaction (Severe, Verified 09/17/19 20:08) cough oxycodone [From Percocet] Adverse Reaction (Severe, Verified 09/17/19 20:08) Bad Dreams acetaminophen [From Vicodin] Adverse Reaction (Verified 09/17/19 20:08) Vomiting hydrocodone bitartrate [From Vicodin] Adverse Reaction (Verified 09/17/19 20:08) Vomiting AMMONIUM LACTATE Allergy (Uncoded 09/17/19 20:08) Rash Medications to take at Discharge amlodipine 5 mg tablet 5 mg PO DAILY #90 tab 08/10/18 lorazepam 0.5 mg tablet 0.5 mg PO BID PRN 10 Days #20 tab 08/10/18 clopidogrel 75 mg tablet 75 mg PO DAILY #90 tab 02/07/19 pravastatin 80 mg tablet 40 mg PO QHS #45 tab 03/14/19 budesonide 0.25 mg/2 mL suspension for nebulization 0.25 mg INHALATION BID #120 ml 04/14/19 levalbuterol HCl 0.63 mg/3 mL solution for nebulization 0.63 mg INHALATION ONCE #90 ml 04/28/19 spironolactone 25 mg tablet 25 mg PO DAILY #90 tab 07/29/19 The following prescriptions were given: Furosemide [Lasix] 40 mg PO BIDLX #1 tablet Primary Care Physician: Jeffrey Lopez MD [Primary Care Provider] - Test Results: Test results from this visit will be discussed in further detail at your follow- up appointment, if applicable. Please Follow Up With: Jeffrey Lopez MD Please Follow Up With: Siddharth Magana MD Please Follow Up With: Mei Baum NP-C
[2019-09-19 16:45] LABS: Bedside Glucose 252 mg/dL (70-110)
--- NOTE | 2019-09-19 18:13 | PCM.DC.SUM ---
Discharge Date and Diagnosis Date of Admission: 09/17/19 Date of Discharge: 09/19/19 - Primary Discharge Diagnosis Acute Problems: #1 acute diastolic congestive heart failure #2 pulmonary hypertension #3 acute on chronic hypoxic respiratory failure secondary to #1 #4 uncontrolled type 2 diabetes #5 essential hypertension #6 coronary artery disease #7 ischemic cardiomyopathy #8 hyperlipidemia #9 obstructive sleep apnea - Secondary Discharge Diagnosis Chronic Problems: Chronic Problems (Last Reviewed 09/15/19 @ 08:38 by Mei Baum NP-C) ALYCE (obstructive sleep apnea) (Chronic) CPAP 7 cmH2O Acute and chronic respiratory failure with hypoxia (Chronic) Diabetes mellitus, type II (Chronic) Obesity (BMI 30-39.9) (Chronic) Secondary pulmonary arterial hypertension (Chronic) H/O coronary artery bypass surgery (Chronic 2000) CABG x 5-DENISE-LAD, SVG-Mid PDA and second posterior descending septal conformal pad former, SVG-OM1 and OM2 2000 History of coronary artery stent placement (Chronic 03/12/18) PCI/MONSE MID SVG-PDA w/ 3.0 x 38 mm and VWW-Wnuf-FUB-PDA w/ 3.5 x 12 mm Promus Elememt 11/09/2012: MONSE to SVG OM1/OM2 using 3.5 X 12 Promus Synergy, 03/12/2018 Chronic renal failure, stage 4 (severe) (Chronic) Atherosclerosis 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 angina pectoris (Chronic) PCI/MONSE SVG-PDA 11/2012: MONSE to SVG OM1/OM2 using 3.5 X 12 Promus Synergy, 03/12/2018 CABG x 4-DENISE-LAD, SVG-Mid PDA and second posterior descending septal conformal pad former, SVG-OM1 and OM2 2000 Dyslipidemia (Chronic) Benign essential hypertension (Chronic) Hospital Course and Treatment Imaging Results: 09/19/19 09:28 CXR [Chest PA and Lateral] [RAD] Urgent 09/19/19 09:30 Lung Scan Vent/Perf [NM] Routine Operations: None Procedures: 2-D Echocardiogram Summary of Care Provided: The patient is a 79 year old F was seen in the emergency room at [facility] with chief complaint of increasing shortness of breath. Patient is on chronic supplemental oxygen at home. Work-up in the emergency room included a chest x-ray which did not show any acute disease process-cardiomegaly was noted to be present as well as right lung base scarring, troponin was negative, beta natruretic peptide was elevated at 300, patient's blood sugar was elevated at 322, patient's d-dimer was elevated at 1.29, and patient's creatinine was elevated at 1.66. Patient was given Lasix in the emergency room, patient required 6 L of oxygen via nasal cannula to maintain her pulse ox. Patient was also given breathing treatments while in the emergency room. Patient was admitted to PCU, she was maintained on IV diuretics, she was fully anticoagulated due to concerns of thromboembolic disease. Patient was also seen in consultation by pulmonary medicine. Echocardiogram was obtained which showed an intermediate ejection fraction 45% and pulmonary hypertension. Patient's VQ scan did not show evidence of a PE. With treatment, patient's oxygen requirement lessened. Patient was started on corticosteroids during her hospitalization which drove her blood sugar up, at the time of discharge, pulmonary medicine did not feel the patient required further corticosteroid administration. On 09/19/2019, patient was seen and examined: On examination she appeared in good health and spirits, she does not appear to be in any distress. Vital signs as documented. Skin warm and dry and without overt rashes. Neck without JVD, thyroid appears normal, trachea is midline, neck is supple. Lungs clear, normal air movement was noted. Heart exam notable for regular rhythm, normal sounds and absence of murmurs, rubs or gallops. Abdomen unremarkable and without evidence of organomegaly, masses, or abdominal aortic enlargement, bowel sounds are present in all 4 quadrants, no abdominal tenderness was noted. Extremities nonedematous, no cyanosis was noted, no clubbing was noted. Neuro: Cranial nerves II through XII are grossly intact, no focal motor deficits were noted, sensation to light touch and pinprick is intact, motor exam 5/5 throughout. Psych: Patient is alert and oriented x3, she does not appear anxious or depressed, she does not appear agitated. There was some discussion with the patient concerning a hospice consultation, and talking with the patient and the patient's family prior to discharge, the patient's family indicated the patient does not want to consider hospice care and wants full measures for care at the present time. On 09/19/2019, patient appeared stable for discharge home. - Physical Exam Vitals/I&O's: Vital Signs Temp Pulse Resp BP Pulse Ox 98.5 F 87 17 146/66 H 95 09/19/19 15:51 09/19/19 15:51 09/19/19 15:51 09/19/19 15:51 09/19/19 15:51 Oxygen Flow Rate (L/min) 3 Oxygen Delivery Method Nasal Cannula Weight: 94.1 kg Body Mass Index (BMI) 36.1 Finger Stick Blood Glucose 169 Intake and Output for Last 24 Hours 09/17/19 09/18/19 09/19/19 23:59 23:59 23:59 Intake Total 560 / 800 840 / 840 Output Total 401 / 701 1000 / 1000 Balance 159 / 99 -160 / -160 Laboratory Results 09/18/19 20:34: Troponin I 0.131 H 09/18/19 21:26: Glucose 681 H* 09/18/19 22:51: POC Glucose > 500 H* 09/19/19 01:17: POC Glucose 481 H* 09/19/19 02:33: POC Glucose 451 H* 09/19/19 04:54: Sodium 135 L, Potassium 5.0, Chloride 97 L, Carbon Dioxide 29.0, Anion Gap 9, BUN 60 H, Creatinine 2.28 H, Estim Creat Clear Calc 16.82, Est GFR (MDRD) Af Amer 27 L, Est GFR (MDRD) Non-Af 22 L, BUN/Creatinine Ratio 26.3 H, Glucose 395 H, Calcium 9.3 09/19/19 09:51: POC Glucose 390 H 09/19/19 12:01: POC Glucose 382 H 09/19/19 16:26: POC Glucose 252 H Discharge Activity: Return to Normal Activity Weight Bearing Status: Full weight bearing Home Medications: Medications to take at Discharge Omeprazole [Prilosec] 40 mg PO DAILY 08/23/13 Albuterol Aerosols [Ventolin Aerosols] 2.5 mg INHALATION Q6H PRN PRN 04/02/17 Insulin Regular, Human [Humulin R] 41 unit SQ TID 05/10/17 Calcitriol [Rocaltrol] 0.25 mcg PO DAILY 05/17/17 Allopurinol 100 mg PO BID 03/10/18 Insulin NPH Human [Humulin N Pen] 46 units SUBCUT BID 01/02/19 Oxygen, Home [Home Oxygen] 3 lpm NASAL DAILY 03/10/18 Nitroglycerin (INPATIENT USE) [Nitrostat] 0.4 mg SUBLINGUAL Q5M PRN #1 bottle 03/13/18 amlodipine 5 mg tablet 5 mg PO DAILY #90 tab 08/10/18 lorazepam 0.5 mg tablet 0.5 mg PO BID PRN 10 Days #20 tab 08/10/18 Aspirin [Aspirin, Baby] 81 mg PO DAILY@0800 11/11/18 clopidogrel 75 mg tablet 75 mg PO DAILY #90 tab 02/07/19 Gabapentin [Neurontin] 200 mg PO QHS 02/13/19 metoprolol tartrate 25 mg tablet 25 mg PO BID tab 02/22/19 pravastatin 80 mg tablet 40 mg PO QHS #45 tab 03/14/19 budesonide 0.25 mg/2 mL suspension for nebulization 0.25 mg INHALATION BID #120 ml 04/14/19 levalbuterol HCl 0.63 mg/3 mL solution for nebulization 0.63 mg INHALATION ONCE #90 ml 04/28/19 spironolactone 25 mg tablet 25 mg PO DAILY #90 tab 07/29/19 Furosemide [Lasix] 40 mg PO BIDLX #1 tab 09/19/19 Following Prescrptions Were Given to Patient: Furosemide [Lasix] 40 mg PO BIDLX #1 tab Primary Care Physician: Jeffrey Lopez MD [Primary Care Provider] - Please Follow Up With: Jeffrey Lopez MD Please Follow Up With: Siddharth Magana MD Please Follow Up With: Mei Baum NP-C Disposition: Home Minutes spent on discharge:: 33 Patient Condition:: Stable Medical Necessity - Tobacco Use Smoking Status: Never smoker Tobacco Use: Non-smoker Meaningful Use Info Meaningful Use Diagnoses (Choose all that apply): CHF - CHF CODY/ARB ordered at discharge?: No Reason CODY/ARB not ordered?: Worsening renal disease Documented LVEF (%): 45 Inpatient E&M: 11349 Disch Hosp
[2019-09-20 07:15] LABS: Bedside Glucose > 500 mg/dL (70-110)
[2019-09-20 07:15] LABS: Bedside Glucose > 500 mg/dL (70-110)
--- NOTE | 2019-09-20 16:02 | CASEMGMT ---
RN CM Discharge F/U Phone Call LACE: 10 Strata: 3 Discharge date: 09/19/2019 Call date: 09/20/2019 Call time: 1602 Attempted to call pt without success at this time, message left for pt to call this RN CM back if/when able. SStaten RN CM Admission dx: Resp failure
== END 2019-09-19 17:39 | disposition home or self-care (01) | DRG 291 ==
LOC: ED 21:20 → ICU 22:37 → PCU 09-18 11:48
PROVIDERS: Internal Medicine; Admitting Provider Internal Medicine; Emergency Provider Student in an Organized Health Care Education/Training Program; PCP Family Medicine; Referring Provider Internal Medicine; Visit Provider Internal Medicine
DX: I13.0 Hypertensive heart and chronic kidney disease with heart failure and stage 1 through stage 4 chronic kidney disease, or unspecified chronic kidney disease (principal); I50.33 Acute on chronic diastolic (congestive) heart failure; J96.21 Acute and chronic respiratory failure with hypoxia; N18.4 Chronic kidney disease, stage 4 (severe); E87.2 Acidosis; E11.65 Type 2 diabetes mellitus with hyperglycemia; N17.9 Acute kidney failure, unspecified; E11.22 Type 2 diabetes mellitus with diabetic chronic kidney disease; I25.10 Atherosclerotic heart disease of native coronary artery without angina pectoris; I25.5 Ischemic cardiomyopathy; G47.33 Obstructive sleep apnea (adult) (pediatric); E78.5 Hyperlipidemia, unspecified; E66.9 Obesity, unspecified; Z99.81 Dependence on supplemental oxygen; Z68.36 Body mass index [BMI] 36.0-36.9, adult; I27.21 Secondary pulmonary arterial hypertension; K21.9 Gastro-esophageal reflux disease without esophagitis; F41.9 Anxiety disorder, unspecified; E03.9 Hypothyroidism, unspecified
CPT/HCPCS: 36415; 71045; 71046; 78582; 80048; 80053; 82947; 82962; 83880; 84484; 85025; 85379; 87635; 93005; 93306; 94640; 97162; 97165; 97530; 97535; 97802; 99251; 99284; A9540; A9567; G2023; Q9957; A4216; G0463; J1940; U0003

== ENCOUNTER → 2019-09-28 08:58 | Outpatient (CLI) | payer MEDICARE, OTHER, SELFPAY ==
[2019-09-17 23:33] VITALS: BMI 36.1
[2019-09-28 10:46] LABS: Anion Gap 2 (5-15); BUN 29 mg/dL (7-18); BUN/Creat Ratio 18.6 RATIO (10-20); Chloride 100 mmol/L (98-107); Creatinine, Serum 1.56 mg/dL (0.55-1.02); EST Glomerular Filtration Rate 34 mL/min (>60); Est Glom Filt Rate - Afr Amer 41 mL/min (>60); Glucose 143 mg/dL (74-106); Potassium 4.1 mmol/L (3.5-5.1); Sodium Level 137 mmol/L (136-145)
== END ==
PROVIDERS: PCP Family Medicine; Referring Provider Internal Medicine; Visit Provider Internal Medicine
DX: N18.4 Chronic kidney disease, stage 4 (severe) (principal)
CPT/HCPCS: 36415; 80048

== ENCOUNTER → 2019-10-10 08:28 | Outpatient (CLI) | payer MEDICARE, OTHER, SELFPAY ==
[2019-09-17 23:33] VITALS: BMI 36.1
[2019-10-10 10:04] LABS: Absolute Lymphocyte Count 1.64 X10^3/uL (0.83-4.51); Absolute Neutrophil Count 4.8 X10^3/uL (2.0-7.7); Basophil# 0.05 X10^3/uL; Basophil% 0.7 % (0-1); Eosinophil# 0.22 X10^3/uL; Eosinophils% 2.9 % (0-5); Hematocrit 39.9 % (37-47); Hemoglobin 12.3 g/dL (12.0-15.0); Lymphocyte # 1.64 X10^3/ul (4.0); Lymphocyte % 21.9 % (19-41); Mean Corp Hgb Conc 30.8 g/dL (32-36); Mean Corpuscular Hgb 28.5 pg (27.0-32.0); Mean Corpuscular Volume 92.4 fL (81-99); Mean Platelet Vol. 10.7 fl (6.2-12.0); Monocyte# 0.72 X10^3/uL; Monocyte% 9.6 % (0-10); NRBC Flagged by Analyzer 0 % (0-5); Neutrophil % 64.1 % (47-70); Platelet Count 220 K/mm3 (150-450); RBC Distribution Width CV 14.1 % (11.6-14.6); RBC Distribution Width SD 47.1 fl (35.1-43.9); Red Blood Count 4.32 M/mm3 (4.2-5.4); White Blood Count 7.5 K/mm3 (4.4-11.0)
[2019-10-10 10:19] LABS: PTHIN 140.4 pg/mL (18.4-80.1)
[2019-10-10 10:22] LABS: Hemoglobin A1c 7.4 % (3.8-5.6)
[2019-10-10 10:23] LABS: Protein, Urine (Random) 10.7 mg/dL (<11.9); Protein:Creat Ratio 197 mg/g CRE (0-200)
[2019-10-10 10:42] LABS: ALB/GLOB Ratio 0.8 RATIO (0.9-2.4); AST(SGOT) 28 U/L (15-37); Alanine Aminotransfer ALT/SGPT 26 U/L (13-56); Albumin, Serum 3.2 g/dL (3.2-5.0); Alkaline Phosphatase 101 U/L (45-117); Anion Gap 6 (5-15); BUN 32 mg/dL (7-18); BUN/Creat Ratio 18.6 RATIO (10-20); Calcium,Total 9.3 mg/dL (8.5-10.1); Chloride 98 mmol/L (98-107); Cholesterol 179 mg/dL (200); Creatinine, Serum 1.72 mg/dL (0.55-1.02); EST Glomerular Filtration Rate 30 mL/min (>60); Est Glom Filt Rate - Afr Amer 37 mL/min (>60); Ferritin 85 ng/mL (8-252); Globulin 4.2 g/dL (2.2-4.2); Glucose 151 mg/dL (74-106); High Density Lipoprotein 40 mg/dL; Iron 87 ug/dL (50-170); Iron Binding Capacity,Total 306 ug/dL (250-450); PERCENT IRON SATURATION 28.4 % (15.0-55.0); Phosphorus 3.9 mg/dL (2.5-4.9); Potassium 4.3 mmol/L (3.5-5.1); Protein, Total 7.4 g/dL (6.4-8.2); Sodium Level 139 mmol/L (136-145); Thyroid Stim Hormone (TSH) 2.42 uIU/mL (0.358-3.74); Triglycerides 192 mg/dL; Very Low Density Lipoprotein 38 mg/dL (5-40)
== END ==
PROVIDERS: PCP Family Medicine; Referring Provider Internal Medicine Nephrology; Visit Provider Internal Medicine Nephrology
DX: E11.22 Type 2 diabetes mellitus with diabetic chronic kidney disease (principal); I12.9 Hypertensive chronic kidney disease with stage 1 through stage 4 chronic kidney disease, or unspecified chronic kidney disease; N18.3 Chronic kidney disease, stage 3 (moderate); N25.81 Secondary hyperparathyroidism of renal origin; D63.1 Anemia in chronic kidney disease
CPT/HCPCS: 36415; 80053; 80061; 82570; 82728; 83036; 83540; 83550; 83970; 84100; 84156; 84443; 84550; 85025

== ENCOUNTER → 2020-04-12 09:34 | Outpatient (CLI) | payer MEDICARE, OTHER, SELFPAY ==
[2020-02-16 15:11] VITALS: BMI 35.2
[2020-04-12 11:51] LABS: Absolute Lymphocyte Count 1.46 X10^3/uL (0.83-4.51); Absolute Neutrophil Count 6.8 X10^3/uL (2.0-7.7); Basophil# 0.05 X10^3/uL; Basophil% 0.5 % (0-1); Eosinophil# 0.22 X10^3/uL; Eosinophils% 2.4 % (0-5); Hematocrit 40.2 % (37-47); Hemoglobin 12.6 g/dL (12.0-15.0); Lymphocyte # 1.46 X10^3/ul (4.0); Lymphocyte % 15.6 % (19-41); Mean Corp Hgb Conc 31.3 g/dL (32-36); Mean Corpuscular Hgb 28.9 pg (27.0-32.0); Mean Corpuscular Volume 92.2 fL (81-99); Monocyte# 0.73 X10^3/uL; Monocyte% 7.8 % (0-10); NRBC Flagged by Analyzer 0 % (0-5); Neutrophil # 6.83 X10^3/uL (2.7-7.7); Neutrophil % 73.1 % (47-70); Platelet Count 243 K/mm3 (150-450); RBC Distribution Width CV 13.3 % (11.6-14.6); RBC Distribution Width SD 44.9 fl (35.1-43.9); Red Blood Count 4.36 M/mm3 (4.2-5.4); White Blood Count 9.4 K/mm3 (4.4-11.0)
[2020-04-12 12:03] LABS: PTHIN 112.8 pg/mL (18.4-80.1)
[2020-04-12 12:06] LABS: Hemoglobin A1c 8.3 % (3.8-5.6)
[2020-04-12 12:10] LABS: Microalbumin,Random Urine 64.9 mg/L (NO RANGE EST.); Microalbumin:Creatinine Ratio 123.9 mg/g CRE (<30 mg/g CRE); Protein, Urine (Random) 16.1 mg/dL (<11.9); Protein:Creat Ratio 307 mg/g CRE (0-200)
[2020-04-12 12:21] LABS: ALB/GLOB Ratio 0.7 RATIO (0.9-2.4); AST(SGOT) 17 U/L (15-37); Alanine Aminotransfer ALT/SGPT 18 U/L (13-56); Albumin, Serum 3.2 g/dL (3.2-5.0); Alkaline Phosphatase 93 U/L (45-117); Anion Gap 2 (5-15); BUN 22 mg/dL (7-18); BUN/Creat Ratio 13.6 RATIO (10-20); Calcium,Total 9.6 mg/dL (8.5-10.1); Chloride 100 mmol/L (98-107); Cholesterol 109 mg/dL (200); Creatinine, Serum 1.62 mg/dL (0.55-1.02); EST Glomerular Filtration Rate 33 mL/min (>60); Est Glom Filt Rate - Afr Amer 39 mL/min (>60); Ferritin 117 ng/mL (8-252); Globulin 4.5 g/dL (2.2-4.2); Glucose 138 mg/dL (74-106); High Density Lipoprotein 41 mg/dL; Iron 61 ug/dL (50-170); Iron Binding Capacity,Total 290 ug/dL (250-450); Potassium 4.3 mmol/L (3.5-5.1); Protein, Total 7.7 g/dL (6.4-8.2); Sodium Level 138 mmol/L (136-145); Thyroid Stim Hormone (TSH) 1.25 uIU/mL (0.358-3.74); Triglycerides 117 mg/dL; Uric Acid 4.3 mg/dL (2.6-6.0); Very Low Density Lipoprotein 23 mg/dL (5-40)
== END ==
PROVIDERS: PCP Family Medicine; Referring Provider Internal Medicine; Visit Provider Internal Medicine
DX: I12.9 Hypertensive chronic kidney disease with stage 1 through stage 4 chronic kidney disease, or unspecified chronic kidney disease (principal); N18.30 Chronic kidney disease, stage 3 unspecified; R60.9 Edema, unspecified; E11.22 Type 2 diabetes mellitus with diabetic chronic kidney disease
CPT/HCPCS: 36415; 80053; 80061; 82043; 82570; 82728; 83036; 83540; 83550; 83970; 84100; 84156; 84443; 84550; 85025

== ENCOUNTER → 2020-07-17 09:10 | Outpatient (CLI) | payer MEDICARE, OTHER, SELFPAY ==
[2020-07-16 12:12] VITALS: BMI 35.1
[2020-07-17 12:47] LABS: Hemoglobin A1c 9.4 % (3.8-5.6)
== END ==
PROVIDERS: PCP Family Medicine; Referring Provider Internal Medicine; Visit Provider Internal Medicine
DX: E11.9 Type 2 diabetes mellitus without complications (principal)
CPT/HCPCS: 36415; 83036

== ENCOUNTER 2020-08-16 23:25 | Emergency (ER) | payer MEDICARE, OTHER, SELFPAY ==
[2020-07-16 12:12] VITALS: BMI 35.1
[2020-08-16 23:25] VITALS: BP 137/107; PULSE 50; RESP 24; TEMP 36.6; O2SAT 99; BMI 34.9
--- NOTE | 2020-08-16 23:35 | RAD_ITS ---
STUDY: X-RAY CHEST REASON FOR EXAM: Female, 80 years old. sob TECHNIQUE: Single AP portable view of the chest. COMPARISON: 08/20/2019 FINDINGS: Elevated right hemidiaphragm is stable. The lungs are clear and expanded. There is no demonstrated pleural abnormality. There is mild cardiac enlargement. Median sternotomy wires are noted. Normal mediastinum and billy. Normal visualized pulmonary arteries. Normal visualized aortic arch and descending thoracic aorta. Normal visualized thoracic spine. Normal visualized ribs, clavicles, and shoulders. There is no demonstrated abnormality of the visualized soft tissue structures of the upper abdomen. RAD/Chest 1 View (Portable) IMPRESSION: Lungs are clear. Elevated right hemidiaphragm Electronically Signed: Tarun Holly DO at 0:38 EDT Tel , Service support ,
--- NOTE | 2020-08-16 23:35 | EKG12_ITS ---
Test Reason : DYSRHYTHMIA Blood Pressure : / mmHG Vent. Rate : 061 BPM Atrial Rate : 061 BPM P-R Int : 000 ms QRS Dur : 130 ms QT Int : 470 ms P-R-T Axes : 000 009 137 degrees QTc Int : 473 ms Normal sinus rhythm with PVC's Non-specific intra-ventricular conduction block Cannot rule out Anterior infarct , age undetermined T wave abnormality, consider lateral ischemia Abnormal ECG Confirmed by YVES CURRY, AMBER ([id number]), photograph editor LALA KENNEDY ([id number]) on 08/20/2020 1:57:25 PM Referred By: NELSON Confirmed By:AMBER MARINELLI MD
[2020-08-16 23:37] VITALS: O2SAT 4
--- NOTE | 2020-08-16 23:44 | ED.VIS.DYS ---
HPI History of Present Illness Chief Complaint: Shortness of Breath Informant: patient Narrative Narrative: Patient presents with shortness of breath. She has had this for the past 3 days. She has more shortness of breath with exertion. She does have history of CHF and wears 3 L of oxygen at home. She feels more swollen in her legs and abdomen. She has been taking her Lasix but has had decreased urination secondary to urinary tract infection. She did start Keflex yesterday for this. She denies any fevers or cough. Denies any Covid exposures. She is having no chest pain at this time. [facility] Medical History Acute and chronic respiratory failure with hypoxia Acute diastolic CHF (congestive heart failure) Asthma Atherosclerosis 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 angina pectoris Benign essential hypertension Chronic renal failure, stage 4 (severe) Diabetes mellitus, type II Dyslipidemia GERD (gastroesophageal reflux disease) Hypothyroidism IBS (irritable bowel syndrome) Ischemic cardiomyopathy Obesity (BMI 30-39.9) Obstructive sleep apnea ALYCE (obstructive sleep apnea) Rheumatoid arthritis Secondary pulmonary arterial hypertension TIA (transient ischemic attack) Type 2 diabetes mellitus Home Medications omeprazole 40 mg PO DAILY 08/23/13 [History Last Taken 11/10/18] albuterol sulfate 2.5 mg INHALATION Q6H PRN PRN 04/02/17 [History Last Taken 11/10/18] insulin regular human 41 unit SQ BID 05/10/17 [History Last Taken 11/10/18] calcitriol 0.5 mcg PO DAILY 05/17/17 [History Last Taken 11/10/18] Oxygen, Home [Home Oxygen] 3 lpm NASAL DAILY 03/10/18 [History Last Taken 11/10/18] allopurinol 200 mg PO DAILY 03/10/18 [History Last Taken 11/10/18] insulin NPH isoph U-100 human 46 units SUBCUT BID 03/10/18 [History Last Taken 11/10/18] nitroglycerin 0.4 mg SUBLINGUAL Q5M PRN #1 bottle 03/13/18 [Rx Last Taken Unknown] lorazepam 0.5 mg tablet 0.5 mg PO BID PRN 10 Days #20 tab 08/10/18 [History Last Taken Unknown] aspirin 81 mg PO DAILY@0800 11/11/18 [History Last Taken 11/10/18] gabapentin 200 mg PO QHS 02/13/19 [History Last Taken Unknown] metoprolol tartrate 25 mg tablet 25 mg PO BID tab 02/22/19 [History Last Taken Unknown] spironolactone 25 mg tablet 25 mg PO DAILY #90 tab 07/29/19 [Rx Last Taken Unknown] amlodipine 5 mg tablet 5 mg PO DAILY #90 tab 10/12/19 [Rx Last Taken Unknown] furosemide 40 mg tablet 40 mg PO BID #180 tab 10/13/19 [Rx Last Taken Unknown] levalbuterol HCl 0.63 mg/3 mL solution for nebulization 0.63 mg INHALATION ONCE #90 ml 11/08/19 [Rx Last Taken Unknown] clopidogrel 75 mg tablet 75 mg PO DAILY #90 tab 03/01/20 [Rx Last Taken Unknown] budesonide 0.25 mg/2 mL suspension for nebulization 0.25 mg INHALATION BID #120 ml 06/25/20 [Rx Last Taken Unknown] rosuvastatin 5 mg tablet 5 mg PO QHS #90 tab 07/18/20 [Rx Last Taken Unknown] benzonatate 100 mg PO Q6H PRN PRN 08/16/20 [History Last Taken Unknown] cephalexin 500 mg PO Q8H 08/16/20 [History Last Taken Unknown] Allergy/AdvReac Type Severity Reaction Status Date / Time simvastatin [From Zocor] Allergy Unknown Verified 08/16/20 23:27 lisinopril AdvReac Severe cough Verified 08/16/20 23:27 oxycodone [From Percocet] AdvReac Severe Bad Dreams Verified 08/16/20 23:27 acetaminophen [From Vicodin] AdvReac Vomiting Verified 08/16/20 23:27 hydrocodone bitartrate AdvReac Vomiting Verified 08/16/20 23:27 [From Vicodin] AMMONIUM LACTATE Allergy Rash Uncoded 08/16/20 23:27 Family History Mother CAD (coronary artery disease) Daughter CAD (coronary artery disease) Abdominal aortic aneurysm (AAA) Surgical History H/O coronary artery bypass surgery (2000) History of section History of cholecystectomy History of coronary artery stent placement (03/12/18) History of coronary artery stent placement Hx of appendectomy Hx of CABG Social History Smoking Status: Never smoker alcohol intake: never substance use type: does not use ROS ROS ED Constitutional Constitutional ED: Denies chills or fever(s) Eyes Eyes: Denies blurry vision, change in vision or diplopia ENT ENT ED: Denies ear pain, rhinorrhea or sore throat Cardiovascular Cardiovascular: Denies chest pain or palpitations Respiratory/Chest Respiratory/Chest: Reports dyspnea Gastrointestinal Gastrointestinal: Denies abdominal pain, diarrhea, nausea or vomiting Genitourinary Genitourinary ED: Denies dysuria, hematuria or urinary frequency Musculoskeletal Musculoskeletal: Denies back pain or neck pain Integumentary Denies change in pigmentation or rash Neurologic Neurologic: Denies headache(s), numbness or weakness Psychiatric Psychiatric: Denies anxiety or depression Endocrine Endocrinology: Denies polydipsia or polyuria EXAM Physical Exam Const Vital Signs: 08/16/20 23:25 08/16/20 23:37 Temperature 97.8 F Temperature Source Temporal Pulse Rate 50 L Respiratory Rate 24 H Respiratory Effort Short of Breath Labored Respiratory Depth Deep Respiratory Pattern Tachypnea Blood Pressure 137/107 H Blood Pressure Mean 117 Pulse Ox 99 Oxygen Delivery Method Nasal Cannula Nasal Cannula Oxygen Flow Rate (L/min) 4 Positive well nourished and well developed General Appearance ED: well developed and NAD HEENT Reports moist mucous membranes normocephalic and atraumatic; Negative for tenderness Eyes PERRL and EOMs intact bilaterally Neck supple and no JVD Chest Wall Chest: Negative for tenderness Resp normal respiratory effort Effort and Inspection: Negative for respiratory distress Auscultation: rales left (Base) Cardio regular rate, regular rhythm and no murmurs Rate: regular rate Rhythm: regular rhythm GI soft to palpation, non-tender and non-distended Palpation: soft Back/Spine no CVA tenderness and no thoracic nor lumbar tenderness Cervical Spine: Negative for cervical spine tenderness Extremity normal to inspection and full ROM Extremity Narrative: 1+ extremity edema bilaterally General Extremety ED: Yes edema General Extremity: edema Neuro oriented x3, CN's II-XII intact bilaterally and no sensory deficits noted Sensorium / Orientation: awake and alert Motor Exam: strength 5/5 throughout Psych mental status grossly normal Skin no rashes or lesions noted MDM MDM MDM Narrative Medical decision making narrative: Patient had laboratory studies which showed a normal hemoglobin. Her troponin is normal. BNP is 322 which is similar to previous readings. Creatinine is 1.65. Chest x-ray shows clear lungs with a slightly elevated right hemidiaphragm. She has been 97% on her home 3 L of oxygen. Due to her continued complaints of shortness of breath I did give her a dose of Lasix and performed a CTA of the chest. CTA shows a mild amount of edema with no other acute findings. At this point I feel the patient can be discharged home. Her oxygen saturation is 97% on her home oxygen status. There is no evidence of PE or severe CHF. The extra dose of Lasix will help with this. She is going to call her physician tomorrow for follow-up. Lab Data Labs: Laboratory Results - last 24 hr 08/16/20 08/16/20 08/16/20 23:40 23:40 23:40 WBC 9.8 RBC 4.32 Hgb 12.3 Hct 39.8 MCV 92.1 MCH 28.5 MCHC 30.9 L RDW Std Deviation 46.2 H RDW Coeff of Lea 13.8 Plt Count 210 MPV 10.9 Immature Gran % (Auto) 0.900 Neut % (Auto) 75.0 H Lymph % (Auto) 15.0 L Fannin % (Auto) 6.7 Eos % (Auto) 1.8 Baso % (Auto) 0.6 Absolute Neuts (auto) 7.3 Absolute Lymphs (auto) 1.46 Nucleated RBC % 0 Sodium 140 Potassium 5.1 Chloride 102 Carbon Dioxide 34.0 H Anion Gap 4 L BUN 30 H Creatinine 1.65 H Estim Creat Clear Calc 22.87 Est GFR (MDRD) Af Amer 39 L Est GFR (MDRD) Non-Af 32 L BUN/Creatinine Ratio 18.2 Glucose 168 H Calcium 9.9 Troponin I < 0.015 B-Natriuretic Peptide 322.7 H Radiography Diagnostic Testing: Radiology Impression Chest X-Ray 08/16/20 23:35 IMPRESSION: Lungs are clear. Elevated right hemidiaphragm Electronically Signed: Tarun Holly DO at 0:38 EDT Tel , Service support , Chest CTA 08/17/20 00:42 IMPRESSION: Normal CTA chest examination, without a demonstrated pulmonary embolism or arterial dissection. Lungs are adequately inflated with suggestion of mild pulmonary edema. Left basilar atelectasis. No consolidation or effusion. Small hypodense thyroid nodules Electronically Signed: Tarun Holly DO at 1:32 EDT Tel , Service support , EKG Initial EKG: Comments: Sinus rhythm with PVCs noted. Nonspecific ST and T wave changes seen. QTc 473, IL interval not calculated. Discharge Plan Triage Chief Complaint: Shortness of Breath ED Provider: Fab Lares Dx/Rx/DC Orders Clinical Impression: Acute diastolic CHF (congestive heart failure) Instructions: ED CHF Left Side Prescriptions: No Action lorazepam 0.5 mg tablet 0.5 mg PO BID PRN (Reason: Anxiety) 10 Days Qty: 20 RF: 0 furosemide 40 mg tablet 40 mg PO BID Qty: 180 RF: 3 omeprazole 40 MG capsule 40 mg PO DAILY RF: 0 albuterol sulfate 2.5 MG/3 ML solution for nebulization 2.5 mg INHALATION Q6H PRN PRN (Reason: Sob &/Or Wheezing) RF: 0 insulin regular human 100 UNIT/ML solution 41 unit SQ BID RF: 0 calcitriol 0.25 MCG capsule 0.5 mcg PO DAILY RF: 0 allopurinol 100 MG tablet 200 mg PO DAILY RF: 0 insulin NPH isoph U-100 human 100 UNITS/ML insulin pen 46 units subcut BID RF: 0 Oxygen, Home [Home Oxygen] 3 lpm NASAL DAILY RF: 0 nitroglycerin 0.4 MG tablet 0.4 mg sublingual Q5M PRN (Reason: Cardiac/Chest Pain) Qty: 1 RF: 0 aspirin 81 MG tablet,chewable 81 mg PO DAILY@0800 RF: 0 metoprolol tartrate 25 mg tablet 25 mg PO BID RF: 0 gabapentin 100 MG capsule 200 mg PO QHS RF: 0 cephalexin 500 mg Capsule 500 mg PO Q8H RF: 0 benzonatate 100 mg Capsule 100 mg PO Q6H PRN PRN (Reason: Cough) RF: 0 spironolactone 25 mg tablet 25 mg PO DAILY Qty: 90 RF: 6 amlodipine [Norvasc] 5 mg tablet 5 mg PO DAILY Qty: 90 RF: 6 levalbuterol HCl 0.63 mg/3 mL solution for nebulization 0.63 mg INHALATION ONCE Qty: 90 RF: 6 clopidogrel 75 mg tablet 75 mg PO DAILY Qty: 90 RF: 3 budesonide 0.25 mg/2 mL suspension for nebulization 0.25 mg INHALATION BID Qty: 120 RF: 6 rosuvastatin 5 mg tablet 5 mg PO QHS Qty: 90 RF: 3 Primary Care Provider: Jeffrey Lopez Referrals: Jeffrey Lopez MD [Primary Care Provider] - Disposition Disposition: Home, self care
[2020-08-16 23:48] LABS: Absolute Lymphocyte Count 1.46 X10^3/uL (0.83-4.51); Absolute Neutrophil Count 7.3 X10^3/uL (2.0-7.7); Basophil# 0.06 X10^3/uL; Basophil% 0.6 % (0-1); Eosinophil# 0.18 X10^3/uL; Eosinophils% 1.8 % (0-5); Hematocrit 39.8 % (37-47); Hemoglobin 12.3 g/dL (12.0-15.0); Lymphocyte # 1.46 X10^3/ul (0.83-4.51); Mean Corp Hgb Conc 30.9 g/dL (32-36); Mean Corpuscular Hgb 28.5 pg (27.0-32.0); Mean Corpuscular Volume 92.1 fL (81-99); Mean Platelet Vol. 10.9 fl (6.2-12.0); Monocyte# 0.65 X10^3/uL; Monocyte% 6.7 % (0-10); NRBC Flagged by Analyzer 0 % (0-5); Neutrophil # 7.32 X10^3/uL (2.7-7.7); Platelet Count 210 K/mm3 (150-450); RBC Distribution Width CV 13.8 % (11.6-14.6); RBC Distribution Width SD 46.2 fl (35.1-43.9); Red Blood Count 4.32 M/mm3 (4.2-5.4); White Blood Count 9.8 K/mm3 (4.4-11.0)
[2020-08-17 00:02] LABS: BNP,B-Type NATRIURETIC PEPTIDE 322.7 pg/mL (0-100)
[2020-08-17 00:05] LABS: Anion Gap 4 (5-15); BUN 30 mg/dL (7-18); BUN/Creat Ratio 18.2 RATIO (10-20); Calcium,Total 9.9 mg/dL (8.5-10.1); Chloride 102 mmol/L (98-107); Creatinine, Serum 1.65 mg/dL (0.55-1.02); EST Glomerular Filtration Rate 32 mL/min (>60); Est Glom Filt Rate - Afr Amer 39 mL/min (>60); Estimated Creatinine Clearance 22.87 ml/min; Glucose 168 mg/dL (74-106); Potassium 5.1 mmol/L (3.5-5.1); Sodium Level 140 mmol/L (136-145)
--- NOTE | 2020-08-17 00:42 | CT_ITS ---
STUDY: CTA CHEST REASON FOR EXAM: Female, 80 years old. shortness of breath RADIATION DOSAGE (If Supplied By Facility): CTDIvol = ( 17.72 ) mGy, DLP = ( 573.35 ) mGycm TECHNIQUE: The examination was performed with the intravenous administration of IV 100mL [id number]-370. Post-processing of the angiographic images was performed, with multiplanar reformation and 3D reconstruction. Individualized dose optimization techniques were used for this CT. COMPARISON: None. FINDINGS: Small hypodense thyroid nodules Normal enhancement of the main pulmonary artery and right and left pulmonary arteries. Normal enhancement of the bilateral peripheral pulmonary arteries. There is no demonstrated pulmonary embolism. Normal thoracic aorta and visualized great vessels. There is no demonstrated aortic dissection. Mild cardiomegaly. Normal pericardium Normal mediastinum. Normal hilar regions. Normal visualized trachea and bronchi. The lungs are well expanded. Subtle interstitial prominence noted bilaterally suggesting mild pulmonary edema. Associated airspace disease in the left lung base is likely atelectasis. Calcified left lower lobe pulmonary nodule Normal pleura. Normal chest wall structures. Normal osseous structures. Status post cholecystectomy. Multiple splenic granulomas CT/CTA Chest W/WO Contrast IMPRESSION: Normal CTA chest examination, without a demonstrated pulmonary embolism or arterial dissection. Lungs are adequately inflated with suggestion of mild pulmonary edema. Left basilar atelectasis. No consolidation or effusion. Small hypodense thyroid nodules Electronically Signed: Tarun Holly DO at 1:32 EDT Tel , Service support ,
[2020-08-17] MEDS: Furosemide 40 MG/4 ML Vial IV (01:05)
[2020-08-17 01:40] VITALS: PULSE 62; RESP 18; O2SAT 92
[2020-08-17 01:54] VITALS: BP 150/55; PULSE 62; RESP 17; O2SAT 97
== END 2020-08-17 02:14 | disposition home or self-care (01) ==
PROVIDERS: Emergency Provider Emergency Medicine; PCP Family Medicine
DX: I50.31 Acute diastolic (congestive) heart failure (principal); E66.9 Obesity, unspecified; E11.22 Type 2 diabetes mellitus with diabetic chronic kidney disease; N18.4 Chronic kidney disease, stage 4 (severe); E78.5 Hyperlipidemia, unspecified; I25.5 Ischemic cardiomyopathy; I25.810 Atherosclerosis of coronary artery bypass graft(s) without angina pectoris; J45.909 Unspecified asthma, uncomplicated; K21.9 Gastro-esophageal reflux disease without esophagitis; Z79.4 Long term (current) use of insulin; Z79.899 Other long term (current) drug therapy; Z68.30 Body mass index [BMI] 30.0-30.9, adult
CPT/HCPCS: 71045; 71275; 80048; 83880; 84484; 85025; 93005; 99283; Q9967; A4216; J1940

== ENCOUNTER 2020-08-19 13:46 | Inpatient (IN) | payer MEDICARE, OTHER, SELFPAY ==
[2020-08-19] VITALS (13 sets, daily range): BP systolic 128–157; BP diastolic 45–82; PULSE 61–115; RESP 16–24; TEMP 36.4–37.1; O2SAT 94–100; BMI 34.9; BMI 35.6
--- NOTE | 2020-08-19 14:11 | EX.ED.DYSGE1 ---
HPI History of Present Illness Chief Complaint: General Illness Informant: patient and family Onset/Context/Timing Onset: Days Context: Sudden Onset Timing: Continuous Quality: Dyspnea, dyspnea on exertion Location: Respiratory Current Severity: Mild Maximum Severity: Severe Worsened by: Walking Relieved by: Nothing Associated Symptoms Associated Symptoms: Orthopnea, edema of lower extremities, Narrative Narrative: Patient is a 80-year-old woman with history of congestive heart failure. She was admitted this past week. She was discharged after a 24-hour stay. She was instructed to contact Dr. Braun's office on Thursday. Patient states she is not able to walk more than 5 to 10 feet. She is on oxygen at home. She is on more oxygen than normal. She states she has been compliant with her diet and medication. Patient denies fever, chills night sweats. Patient denies rhinorrhea, congestion or postnasal drainage. She denies sore throat or difficulty swallowing. She denies anginal type chest pain. She denies nausea, vomiting diarrhea. Denies black or maroon-colored stool. She denies paresthesia, anesthesia or motor weakness. She denies clumsiness or falling. Patient denies history of VTE and denies discoloration of her legs, asymmetry or pain. She denies pleuritic chest pain. Review of prior records indicates she has a history of combined systolic and diastolic dysfunction. Prior similar symptoms: Yes Recent Illness/Hospital[facility]: [facility] Medical History Acute and chronic respiratory failure with hypoxia Acute diastolic CHF (congestive heart failure) Asthma Atherosclerosis 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 angina pectoris Benign essential hypertension Chronic renal failure, stage 4 (severe) Diabetes mellitus, type II Dyslipidemia GERD (gastroesophageal reflux disease) Hypothyroidism IBS (irritable bowel syndrome) Ischemic cardiomyopathy Obesity (BMI 30-39.9) Obstructive sleep apnea ALYCE (obstructive sleep apnea) Rheumatoid arthritis Secondary pulmonary arterial hypertension TIA (transient ischemic attack) Type 2 diabetes mellitus Home Medications omeprazole 40 mg PO DAILY 08/23/13 [History Last Taken 11/10/18] albuterol sulfate 2.5 mg INHALATION Q6H PRN PRN 04/02/17 [History Last Taken 11/10/18] insulin regular human 41 unit SQ BID 05/10/17 [History Last Taken 11/10/18] calcitriol 0.5 mcg PO DAILY 05/17/17 [History Last Taken 11/10/18] Oxygen, Home [Home Oxygen] 3 lpm NASAL DAILY 03/10/18 [History Last Taken 11/10/18] allopurinol 200 mg PO DAILY 03/10/18 [History Last Taken 11/10/18] insulin NPH isoph U-100 human 46 units SUBCUT BID 03/10/18 [History Last Taken 11/10/18] nitroglycerin 0.4 mg SUBLINGUAL Q5M PRN #1 bottle 03/13/18 [Rx Last Taken Unknown] lorazepam 0.5 mg tablet 0.5 mg PO BID PRN 10 Days #20 tab 08/10/18 [History Last Taken Unknown] aspirin 81 mg PO DAILY@0800 11/11/18 [History Last Taken 11/10/18] gabapentin 200 mg PO QHS 02/13/19 [History Last Taken Unknown] metoprolol tartrate 25 mg tablet 25 mg PO BID tab 02/22/19 [History Last Taken Unknown] spironolactone 25 mg tablet 25 mg PO DAILY #90 tab 07/29/19 [Rx Last Taken Unknown] amlodipine 5 mg tablet 5 mg PO DAILY #90 tab 10/12/19 [Rx Last Taken Unknown] furosemide 40 mg tablet 40 mg PO BID #180 tab 10/13/19 [Rx Last Taken Unknown] levalbuterol HCl 0.63 mg/3 mL solution for nebulization 0.63 mg INHALATION ONCE #90 ml 11/08/19 [Rx Last Taken Unknown] clopidogrel 75 mg tablet 75 mg PO DAILY #90 tab 03/01/20 [Rx Last Taken Unknown] budesonide 0.25 mg/2 mL suspension for nebulization 0.25 mg INHALATION BID #120 ml 06/25/20 [Rx Last Taken Unknown] rosuvastatin 5 mg tablet 5 mg PO QHS #90 tab 07/18/20 [Rx Last Taken Unknown] benzonatate 100 mg PO Q6H PRN PRN 08/16/20 [History Last Taken Unknown] cephalexin 500 mg PO Q8H 08/16/20 [History Last Taken Unknown] Allergy/AdvReac Type Severity Reaction Status Date / Time simvastatin [From Zocor] Allergy Unknown Verified 08/19/20 14:10 lisinopril AdvReac Severe cough Verified 08/19/20 14:10 oxycodone [From Percocet] AdvReac Severe Bad Dreams Verified 08/19/20 14:10 acetaminophen [From Vicodin] AdvReac Vomiting Verified 08/19/20 14:10 hydrocodone bitartrate AdvReac Vomiting Verified 08/19/20 14:10 [From Vicodin] AMMONIUM LACTATE Allergy Rash Uncoded 08/19/20 14:10 Family History Mother CAD (coronary artery disease) Daughter CAD (coronary artery disease) Abdominal aortic aneurysm (AAA) Surgical History H/O coronary artery bypass surgery (2000) History of section History of cholecystectomy History of coronary artery stent placement (03/12/18) History of coronary artery stent placement Hx of appendectomy Hx of CABG Social History (Updated 08/19/20 @ 15:[address] Lion Santiago MD) household members: family Smoking Status: Never smoker alcohol intake: never substance use type: does not use ROS ROS ED Constitutional Constitutional ED: Denies chills, fever(s), subjective or sweats Eyes Eyes: Denies blurry vision, change in vision or diplopia ENT ENT ED: Denies ear pain, rhinorrhea or sore throat Cardiovascular Cardiovascular: Reports orthopnea and palpitations; Denies chest pain, paroxysmal nocturnal dyspnea or racing heartbeat Respiratory/Chest Respiratory/Chest: Reports dyspnea, dyspnea on exertion and orthopnea; Denies cough, paroxysmal nocturnal dyspnea or sputum Gastrointestinal Gastrointestinal: Denies abdominal pain, constipation, diarrhea, nausea or vomiting Genitourinary Genitourinary ED: Denies dysuria, hematuria or urinary frequency Musculoskeletal Musculoskeletal: Denies arthralgias or myalgias Integumentary Denies rash Neurologic Neurologic: Reports weakness; Denies headache(s) or paresthesias Endocrine Endocrinology: Denies polydipsia, polyphagia or polyuria EXAM Physical Exam Const Vital Signs: 08/19/20 13:48 08/19/20 13:50 08/19/20 14:11 Temperature 97.7 F L 97.7 F L Temperature Source Temporal Temporal Pulse Rate 115 H 115 H Respiratory Rate 20 H 20 H Respiratory Effort Short of Breath Blood Pressure 134/82 H 134/82 H Blood Pressure Mean 99 99 Pulse Ox 99 99 Oxygen Delivery Method Nasal Cannula Nasal Cannula Oxygen Flow Rate (L/min) 4 4 08/19/20 14:50 08/19/20 16:00 08/19/20 16:01 Temperature 98.7 F 98.7 F Temperature Source Temporal Temporal Pulse Rate 66 64 61 Respiratory Rate 19 H 24 H Respiratory Effort Blood Pressure 134/69 H 128/67 H 128/67 H Blood Pressure Mean 90 87 Pulse Ox 100 96 Oxygen Delivery Method Nasal Cannula Nasal Cannula Oxygen Flow Rate (L/min) 4 4 Positive well nourished, well developed and obese General Appearance ED: well developed and other Pain is tachypneic. She has conversational dyspnea. Nutritional Appearance: obese HEENT HEENT Narrative: Uvula is midline. Posterior pharynx erythema exudate. Ears are normal. Nares patent with no discharge. Eyes PERRL and EOMs intact bilaterally General Eye ED: Negative for pale conjunctiva Neck no lymphadenopathy, supple and no JVD Neck Narrative: Unable to determine if patient has JVD due to body habitus. Trachea is midline. There is no inspiratory expiratory stridor. Chest Wall inspection of chest normal Resp No normal respiratory effort and No clear to auscultation bilaterally Auscultation: rales left base Cardio regular rate, regular rhythm, S1 normal heart sound, S2 normal heart sound and no murmurs GI normal to inspection, nondistended, normoactive bowel sounds and non-tender Palpation: soft Back/Spine no CVA tenderness Cervical Spine: Negative for cervical spine tenderness Thoracic Spine / Upper Back: Negative for thoracic spinal tenderness Extremity Negative for normal to inspection Extremity Narrative: Patient has 2 mm pitting edema bilaterally. General Extremety ED: Yes edema; Negative for tenderness General Extremity: edema Neuro oriented x3, CN's II-XII intact bilaterally and no sensory deficits noted Sensorium / Orientation: alert Psych mental status grossly normal Skin no rashes or lesions noted and no wounds MDM MDM MDM Narrative Medical decision making narrative: Patient's records were reviewed. She had CTA because of elevated D-dimer to rule out pulmonary embolus. CAT scan revealed evidence of heart failure. Differential diagnosis includes cardiac ischemia, exacerbation of combined systolic and diastolic heart failure, infectious etiology. Work-up included EKG, chest x-ray and appropriate blood work. Lab Data Attestation: I reviewed the patient's lab results. Labs: Laboratory Results - last 24 hr 08/19/20 08/19/20 08/19/20 14:33 14:58 14:58 Sodium 138 Potassium 4.7 Chloride 99 Carbon Dioxide 34.0 H Anion Gap 5 BUN 36 H Creatinine 2.77 H Estim Creat Clear Calc 13.62 Est GFR (MDRD) Af Amer 21 L Est GFR (MDRD) Non-Af 18 L BUN/Creatinine Ratio 13.0 Glucose 162 H Lactic Acid 1.4 Calcium 9.4 Total Bilirubin 0.40 AST 28 ALT 22 Alkaline Phosphatase 98 Troponin I < 0.015 B-Natriuretic Peptide Total Protein 8.1 Albumin 3.4 Globulin 4.7 H Albumin/Globulin Ratio 0.7 L COVID-19 ([facility]) Cancelled 08/19/20 14:58 Sodium Potassium Chloride Carbon Dioxide Anion Gap BUN Creatinine Estim Creat Clear Calc Est GFR (MDRD) Af Amer Est GFR (MDRD) Non-Af BUN/Creatinine Ratio Glucose Lactic Acid Calcium Total Bilirubin AST ALT Alkaline Phosphatase Troponin I B-Natriuretic Peptide 257.9 H Total Protein Albumin Globulin Albumin/Globulin Ratio COVID-19 ([facility]) Radiography Chest X-Ray - ED: 1 View, Read by ED Physician (X-ray was interpreted by me at 1545), Bony Structures, Cardiomegaly and CHF Diagnostic Testing: Radiology Impression Chest X-Ray 08/19/20 15:38 IMPRESSION: No significant interval change. Electronically Signed: Justice Albright MD at 15:51 EDT Tel , Service support , Treatment and Re-Evaluation Comments:: Patient was treated with 80 mg of Lasix and 1 inch of Nitropaste. Patient's acid plant helper is Dr. Braun. Discharge Plan Dx/Rx/DC Orders Clinical Impression: Combined congestive systolic and diastolic heart failure, Chronic respiratory failure, Benign essential hypertension, Dyslipidemia, Atherosclerosis 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 angina pectoris, ALYCE (obstructive sleep apnea), Controlled type 2 diabetes mellitus with hyperglycemia Disposition Disposition: Acute Care [facility]
--- NOTE | 2020-08-19 14:14 | EKG12_ITS ---
Test Reason : GENERAL ILLNESS Blood Pressure : / mmHG Vent. Rate : 067 BPM Atrial Rate : 067 BPM P-R Int : 232 ms QRS Dur : 128 ms QT Int : 454 ms P-R-T Axes : 000 056 141 degrees QTc Int : 479 ms Sinus rhythm with 1st degree A-V block Non-specific intra-ventricular conduction block Cannot rule out Anterior infarct , age undetermined Abnormal ECG Confirmed by YVES CURRY, AMBER ([id number]), newspaper photo editor LALA KENNEDY ([id number]) on 08/23/2020 9:30:01 AM Referred By: SHANNON Confirmed By:AMBER MARINELLI MD
[2020-08-19 15:29] LABS: BNP,B-Type NATRIURETIC PEPTIDE 257.9 pg/mL (0-100)
[2020-08-19 15:32] LABS: ALB/GLOB Ratio 0.7 RATIO (0.9-2.4); AST(SGOT) 28 U/L (15-37); Alanine Aminotransfer ALT/SGPT 22 U/L (13-56); Albumin, Serum 3.4 g/dL (3.2-5.0); Alkaline Phosphatase 98 U/L (45-117); Anion Gap 5 (5-15); BUN 36 mg/dL (7-18); Calcium,Total 9.4 mg/dL (8.5-10.1); Chloride 99 mmol/L (98-107); Creatinine, Serum 2.77 mg/dL (0.55-1.02); EST Glomerular Filtration Rate 18 mL/min (>60); Est Glom Filt Rate - Afr Amer 21 mL/min (>60); Estimated Creatinine Clearance 13.62 ml/min; Globulin 4.7 g/dL (2.2-4.2); Glucose 162 mg/dL (74-106); Potassium 4.7 mmol/L (3.5-5.1); Protein, Total 8.1 g/dL (6.4-8.2); Sodium Level 138 mmol/L (136-145)
[2020-08-19 15:36] LABS: Lactic Acid 1.4 mmol/L (0.4-1.9)
--- NOTE | 2020-08-19 15:38 | RAD_ITS ---
STUDY: X-RAY CHEST REASON FOR EXAM: Female, 80 years old. Dyspnea, dyspnea on exertion TECHNIQUE: 1 view COMPARISON: 08/16/2020 FINDINGS: Cardiac silhouette is top normal in size. Costophrenic angles are sharp. Bibasilar linear opacities are unchanged. The trachea is midline. There is no pneumothorax. Sternotomy wires are grossly intact. RAD/Chest 1 View (Portable) IMPRESSION: No significant interval change. Electronically Signed: Justice Albright MD at 15:51 EDT Tel , Service support ,
[2020-08-19] MEDS: Nitroglycerin Oint 1 INCH PACKET TD (16:01)
--- NOTE | 2020-08-19 16:08 | EDS_ITS ---
HPI History of Present Illness Chief Complaint: General Illness [facility] Medical History Acute and chronic respiratory failure with hypoxia Acute diastolic CHF (congestive heart failure) Asthma Atherosclerosis 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 angina pectoris Benign essential hypertension Chronic renal failure, stage 4 (severe) Diabetes mellitus, type II Dyslipidemia GERD (gastroesophageal reflux disease) Hypothyroidism IBS (irritable bowel syndrome) Ischemic cardiomyopathy Obesity (BMI 30-39.9) Obstructive sleep apnea ALYCE (obstructive sleep apnea) Rheumatoid arthritis Secondary pulmonary arterial hypertension TIA (transient ischemic attack) Type 2 diabetes mellitus Home Medications omeprazole 40 mg PO DAILY 08/23/13 [History Last Taken 11/10/18] albuterol sulfate 2.5 mg INHALATION Q6H PRN PRN 04/02/17 [History Last Taken 11/10/18] insulin regular human 41 unit SQ BID 05/10/17 [History Last Taken 11/10/18] calcitriol 0.5 mcg PO DAILY 05/17/17 [History Last Taken 11/10/18] Oxygen, Home [Home Oxygen] 3 lpm NASAL DAILY 03/10/18 [History Last Taken 11/10/18] allopurinol 200 mg PO DAILY 03/10/18 [History Last Taken 11/10/18] insulin NPH isoph U-100 human 46 units SUBCUT BID 03/10/18 [History Last Taken 11/10/18] nitroglycerin 0.4 mg SUBLINGUAL Q5M PRN #1 bottle 03/13/18 [Rx Last Taken Unknown] lorazepam 0.5 mg tablet 0.5 mg PO BID PRN 10 Days #20 tab 08/10/18 [History Last Taken Unknown] aspirin 81 mg PO DAILY@0800 11/11/18 [History Last Taken 11/10/18] gabapentin 200 mg PO QHS 02/13/19 [History Last Taken Unknown] metoprolol tartrate 25 mg tablet 25 mg PO BID tab 02/22/19 [History Last Taken Unknown] spironolactone 25 mg tablet 25 mg PO DAILY #90 tab 07/29/19 [Rx Last Taken Unknown] amlodipine 5 mg tablet 5 mg PO DAILY #90 tab 10/12/19 [Rx Last Taken Unknown] furosemide 40 mg tablet 40 mg PO BID #180 tab 10/13/19 [Rx Last Taken Unknown] levalbuterol HCl 0.63 mg/3 mL solution for nebulization 0.63 mg INHALATION ONCE #90 ml 11/08/19 [Rx Last Taken Unknown] clopidogrel 75 mg tablet 75 mg PO DAILY #90 tab 03/01/20 [Rx Last Taken Unknown] budesonide 0.25 mg/2 mL suspension for nebulization 0.25 mg INHALATION BID #120 ml 06/25/20 [Rx Last Taken Unknown] rosuvastatin 5 mg tablet 5 mg PO QHS #90 tab 07/18/20 [Rx Last Taken Unknown] benzonatate 100 mg PO Q6H PRN PRN 08/16/20 [History Last Taken Unknown] cephalexin 500 mg PO Q8H 08/16/20 [History Last Taken Unknown] Allergy/AdvReac Type Severity Reaction Status Date / Time simvastatin [From Zocor] Allergy Unknown Verified 08/19/20 14:10 lisinopril AdvReac Severe cough Verified 08/19/20 14:10 oxycodone [From Percocet] AdvReac Severe Bad Dreams Verified 08/19/20 14:10 acetaminophen [From Vicodin] AdvReac Vomiting Verified 08/19/20 14:10 hydrocodone bitartrate AdvReac Vomiting Verified 08/19/20 14:10 [From Vicodin] AMMONIUM LACTATE Allergy Rash Uncoded 08/19/20 14:10 Family History Mother CAD (coronary artery disease) Daughter CAD (coronary artery disease) Abdominal aortic aneurysm (AAA) Surgical History H/O coronary artery bypass surgery (2000) History of section History of cholecystectomy History of coronary artery stent placement (03/12/18) History of coronary artery stent placement Hx of appendectomy Hx of CABG Social History (Updated 08/19/20 @ 15:[address] Lion Santiago MD) household members: family Smoking Status: Never smoker alcohol intake: never substance use type: does not use EXAM Physical Exam Const Vital Signs: 08/19/20 13:48 08/19/20 13:50 08/19/20 14:11 Temperature 97.7 F L 97.7 F L Temperature Source Temporal Temporal Pulse Rate 115 H 115 H Respiratory Rate 20 H 20 H Respiratory Effort Short of Breath Blood Pressure 134/82 H 134/82 H Blood Pressure Mean 99 99 Pulse Ox 99 99 Oxygen Delivery Method Nasal Cannula Nasal Cannula Oxygen Flow Rate (L/min) 4 4 08/19/20 14:50 08/19/20 16:00 08/19/20 16:01 Temperature 98.7 F 98.7 F Temperature Source Temporal Temporal Pulse Rate 66 64 61 Respiratory Rate 19 H 24 H Respiratory Effort Blood Pressure 134/69 H 128/67 H 128/67 H Blood Pressure Mean 90 87 Pulse Ox 100 96 Oxygen Delivery Method Nasal Cannula Nasal Cannula Oxygen Flow Rate (L/min) 4 4 [facility] Lab Data Labs: Laboratory Results - last 24 hr 08/19/20 08/19/20 08/19/20 14:33 14:58 14:58 Sodium 138 Potassium 4.7 Chloride 99 Carbon Dioxide 34.0 H Anion Gap 5 BUN 36 H Creatinine 2.77 H Estim Creat Clear Calc 13.62 Est GFR (MDRD) Af Amer 21 L Est GFR (MDRD) Non-Af 18 L BUN/Creatinine Ratio 13.0 Glucose 162 H Lactic Acid 1.4 Calcium 9.4 Total Bilirubin 0.40 AST 28 ALT 22 Alkaline Phosphatase 98 Troponin I < 0.015 B-Natriuretic Peptide Total Protein 8.1 Albumin 3.4 Globulin 4.7 H Albumin/Globulin Ratio 0.7 L COVID-19 ([facility]) Cancelled 08/19/20 14:58 Sodium Potassium Chloride Carbon Dioxide Anion Gap BUN Creatinine Estim Creat Clear Calc Est GFR (MDRD) Af Amer Est GFR (MDRD) Non-Af BUN/Creatinine Ratio Glucose Lactic Acid Calcium Total Bilirubin AST ALT Alkaline Phosphatase Troponin I B-Natriuretic Peptide 257.9 H Total Protein Albumin Globulin Albumin/Globulin Ratio COVID-19 ([facility]) Radiography Chest X-Ray - ED: 1 View, Read by ED Physician, Cardiomegaly and CHF Diagnostic Testing: Radiology Impression Chest X-Ray 08/19/20 15:38 IMPRESSION: No significant interval change. Electronically Signed: Justice Albright MD at 15:51 EDT Tel , Service support , Sales Clerk Supervisor read was noted and is different than mine. EKG Initial EKG: Attestation: I personally reviewed and interpreted this EKG as follows: Interpretation: Sinus Rhythm (Sinus rhythm with a ventricular rate of 67 and first-degree AV block. NE interval is 232 ms. QRS duration is prolonged at 128 ms and consistent with a nonspecific intraventricular conduction delay. QT intervals 454 ms.) Discharge Plan Dx/Rx/DC Orders Clinical Impression: Combined congestive systolic and diastolic heart failure, Chronic respiratory failure, Benign essential hypertension, Dyslipidemia, Atherosclerosis 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 angina pectoris, ALYCE (obstructive sleep apnea), Controlled type 2 diabetes mellitus with hyperglycemia Disposition Disposition: Acute Care [facility]
[2020-08-19] MEDS: Furosemide 100 MG/10 ML Vial 80 MG IV (16:41)
--- NOTE | 2020-08-19 16:57 | CT_ITS ---
STUDY: CT CHEST WITHOUT CONTRAST REASON FOR EXAM: Female, 80 years old. SOB RADIATION DOSAGE (If Supplied By Facility): CTDIvol = ( 19.74 ) mGy, DLP = ( 734.89 ) mGycm TECHNIQUE: Transaxial imaging was performed without the administration of intravenous contrast material. Individualized dose optimization techniques were used for this CT. COMPARISON: 08/17/2020 FINDINGS: LITTLE if any significant change. Again seen is elevation of the right hemidiaphragm. Again seen is subsegmental atelectasis and/or scarring in the lung bases. Finding most pronounced on the right. No definite inflammatory infiltrates. No gross effusions. Sternal cerclage wires and vascular clips are present from a prior sternotomy and coronary artery bypass graft procedure (CABG). There are calcifications of the coronary arteries. Normal mediastinum. Normal hilar regions. Normal unenhanced pulmonary arteries. There is atherosclerotic calcification of the aortic arch with tortuosity and elongation of the aortic arch and descending thoracic aorta. There are multi-level degenerative changes of the thoracic spine. There is no demonstrated abnormality of the visualized upper abdomen. CT/Chest without Contrast IMPRESSION: LITTLE if any significant change. Grossly stable atelectasis and/or scarring of the lung bases. Electronically Signed: Aravind Starkey MD at 21:05 EDT , Service support ,
--- NOTE | 2020-08-19 18:10 | ECHOCS_ITS ---
Reason For Study: CHF Procedure This was a 2D Doppler, Color Flow transthoracic echocardiogram. Contrast injection was performed. The study was technically difficult. Exam performed portable in patient room. Left Ventricle Normal LV size. The estimated ejection fraction is 45 %. Stage 2 diastolic dysfunction. There is mild global hypokinesis of the left ventricle. Right Ventricle Normal RV size. Normal systolic function. Atria Normal left atrium. Normal right atrium. Mitral Valve Normal mitral valve. Tricuspid Valve Normal tricuspid valve. Moderate (2+) tricuspid valve insufficiency. Pulmonary artery systolic pressure is 60 mmHg. Moderate pulmonary hypertension. Aortic Valve Trisinus/trileaflet aortic valve. Pulmonic Valve The pulmonic valve is not well visualized. Great Vessels Normal aortic root. The pulmonary artery is normal size. Normal inferior vena cava. Pericardium/Pleural No pericardial effusion. Medication Diluted definity 7ml given slow IV push to enhance endocardial definition. MMode/2D Measurements & Calculations LVIDd: 5.3 cm IVSd: 0.79 cm Ao root diam: 2.9 cm LVIDs: 3.9 cm LVPWd: 0.79 cm RVDd: 3.7 cm FS: 26.3 % LAV(MOD-bp): 57.4 ml LVAd ap4: 34.9 cm2 SV(MOD-sp4): 68.9 ml LAV(MOD-bp) Indexed: 30.0 ml/m2 LVLd ap4: 7.9 cm LAV(MOD-sp2): 58.3 ml EDV(MOD-sp4): 130.4 ml LAV(MOD-sp4): 49.3 ml EDV(sp4-el): 132.0 ml LVAs ap4: 21.8 cm2 LVLs ap4: 6.9 cm ESV(MOD-sp4): 61.5 ml ESV(sp4-el): 59.0 ml EF(MOD-sp4): 52.9 % EF(sp4-el): 55.3 % SV(sp4-el): 73.0 ml LA A4 area: 17.6 cm2 LA dimension(2D): 4.1 cm RA A4 area: 16.6 cm2 Time Measurements MV dec time: 0.14 sec Doppler Measurements & Calculations MV E max doug: 144.9 cm/sec Med Peak E' Doug: 3.8 cm/sec MV V2 max: 150.0 cm/sec MV A max doug: 104.7 cm/sec E/E' med: 38.0 MV max P.0 mmHg MV E/A: 1.4 MV V2 mean: 95.3 cm/sec MV mean P.0 mmHg MV V2 VTI: 44.6 cm Ao V2 max: 183.5 cm/sec LV V1 max: 84.1 cm/sec PA V2 max: 132.0 cm/sec Ao max P.5 mmHg LV V1 max P.8 mmHg Ao V2 mean: 129.9 cm/sec LV V1 mean P.6 mmHg Ao mean P.4 mmHg LV V1 mean: 61.7 cm/sec Ao V2 VTI: 41.7 cm LV V1 VTI: 19.1 cm TR max doug: 362.3 cm/sec MV P1/2t-pr_phl: 64.1 msec TR max P.6 mmHg ECHO/Echo Complete W/ Contrast Interpretation Summary Normal LV size. The estimated ejection fraction is 45 %. There is mild global hypokinesis of the left ventricle. Stage 2 diastolic dysfunction. Pulmonary artery systolic pressure is 60 mmHg. Moderate pulmonary hypertension. Contrast injection was performed. Compared to previous study, the left ventricu lar systolic function is the same.. Ordering Physician: Ritika Pereyra Referring Physician: DARLENE BECK Performed By: Yolanda Chowdary, NICHOLAS, RVT
[2020-08-19 18:31] LABS: Bedside Glucose 109 mg/dL (70-110)
[2020-08-19 19:58] LABS: Mucous, Urine 0 SEEN /hpf (<or=2+); Red Blood Cells-Urine 0 SEEN /hpf (0-5); White Blood Cells 0 SEEN /hpf (0-5)
[2020-08-19 20:00] LABS: Color, Urine Straw (Yellow); Glucose, Dipstick Normal (Normal); Ketone-Dipstick Negative (Negative); Leukocyte Esterase-Dipstick Negative /ul (Negative); Nitrite-Dipstick Negative (Negative); Occult Blood-Urine Negative /ul (Negative); Protein-Dipstick Negative (Negative); Urine Bilirubin Dipstick Negative (Negative); Urine Clarity Clear (Clear); Urine Urobilinogen Normal (Normal)
[2020-08-19 20:07] LABS: Absolute Lymphocyte Count 1.26 X10^3/uL (0.83-4.51); Absolute Neutrophil Count 8.7 X10^3/uL (2.0-7.7); Basophil# 0.05 X10^3/uL; Basophil% 0.5 % (0-1); Eosinophil# 0.21 X10^3/uL; Eosinophils% 1.9 % (0-5); Hematocrit 38.7 % (37-47); Hemoglobin 11.8 g/dL (12.0-15.0); Lymphocyte # 1.26 X10^3/ul (0.83-4.51); Lymphocyte % 11.5 % (19-41); Mean Corp Hgb Conc 30.5 g/dL (32-36); Mean Corpuscular Hgb 28.1 pg (27.0-32.0); Mean Corpuscular Volume 92.1 fL (81-99); Mean Platelet Vol. 10.9 fl (6.2-12.0); Monocyte# 0.73 X10^3/uL; Monocyte% 6.6 % (0-10); NRBC Flagged by Analyzer 0 % (0-5); Neutrophil # 8.67 X10^3/uL (2.7-7.7); Neutrophil % 78.9 % (47-70); Platelet Count 218 K/mm3 (150-450); RBC Distribution Width CV 14.1 % (11.6-14.6); RBC Distribution Width SD 47.3 fl (35.1-43.9)
[2020-08-19 20:10] LABS: Bacteria RARE /hpf (None Seen); Squamous Epithelial Cells - UA 10-25 SEEN /hpf (5-10)
[2020-08-19 20:12] LABS: Urea Nitrogen, Urine 230 mg/dL (NO RANGE EST.); Urine Sodium 85 mmol/L (Not Establ.)
--- NOTE | 2020-08-19 20:19 | HP.PCM.HOS_ITS ---
HPI - General General Date of Admission: 08/19/20 HPI Narrative SUBHASH GASPAR, is a 80 F who presented to the emergency department with shortness of breath. She presented to the emergency department initially on 08/16/2020 complaining of shortness of breath. She reported at that time it was worse with exertion and felt that her legs and abdomen were more swollen. At that time she was given 1 dose of Lasix and a CTA was performed that showed mild edema but had no other acute findings. She was discharged home with oxygen saturations at 97% on her home O2 of 2 to 3 L. Her instructions were to call her primary care physician the day following. She presented back to the emergency department with continued short this of breath and is now only able to walk approximately 10 feet before getting winded. She has had to increase her home oxygen. She has a cough but states this is chronic and is nonproductive. She has had no fever or chills. Upon exam she states that this is similar to her symptoms she has with worsening heart failure. In the emergency department she was afebrile was tachycardic with heart rate in the 100-115 range, she was normotensive, she was mildly tachypneic and had an oxygen saturation of 96 to 100% on 4 L nasal cannula. Her CBC was relatively unremarkable. Her BMP showed a significantly worse creatinine at 2.77 with a baseline of 1.5-1.7. Her lactate was 1.4. Her troponin was less than 0.015. Her BNP was elevated at 257.9 but upon comparison this is lower than she has been in the past, including her visit on 610 in which it was 322.7 and a upon review she has not had a normal BNP ever here. Her UA is unremarkable. Her chest x-ray shows no significant change. A repeat CT is pending read but reviewed by me appears to have some mild groundglass changes but no significant volume overload. Patient was treated with Lasix and Nitropaste in the emergency department. We will admit her to PCU for continued work-up. [facility] Medical History Acute and chronic respiratory failure with hypoxia Acute diastolic CHF (congestive heart failure) Asthma Atherosclerosis 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 angina pectoris Benign essential hypertension Chronic renal failure, stage 4 (severe) Diabetes mellitus, type II Dyslipidemia GERD (gastroesophageal reflux disease) Hypothyroidism IBS (irritable bowel syndrome) Ischemic cardiomyopathy Obesity (BMI 30-39.9) Obstructive sleep apnea ALYCE (obstructive sleep apnea) Rheumatoid arthritis Secondary pulmonary arterial hypertension TIA (transient ischemic attack) Type 2 diabetes mellitus Home Medications omeprazole 40 mg PO DAILY 08/23/13 [History Last Taken 11/10/18] albuterol sulfate 2.5 mg INHALATION Q6H PRN PRN 04/02/17 [History Last Taken 11/10/18] insulin regular human 41 unit SQ BID 05/10/17 [History Last Taken 11/10/18] calcitriol 0.5 mcg PO DAILY 05/17/17 [History Last Taken 11/10/18] Oxygen, Home [Home Oxygen] 3 lpm NASAL DAILY 03/10/18 [History Last Taken 11/10/18] allopurinol 200 mg PO DAILY 03/10/18 [History Last Taken 11/10/18] insulin NPH isoph U-100 human 46 units SUBCUT BID 03/10/18 [History Last Taken 11/10/18] nitroglycerin 0.4 mg SUBLINGUAL Q5M PRN #1 bottle 03/13/18 [Rx Last Taken Unknown] lorazepam 0.5 mg tablet 0.5 mg PO BID PRN 10 Days #20 tab 08/10/18 [History Last Taken Unknown] aspirin 81 mg PO DAILY@0800 11/11/18 [History Last Taken 11/10/18] gabapentin 200 mg PO QHS 02/13/19 [History Last Taken Unknown] metoprolol tartrate 25 mg tablet 25 mg PO BID tab 02/22/19 [History Last Taken Unknown] spironolactone 25 mg tablet 25 mg PO DAILY #90 tab 07/29/19 [Rx Last Taken Unknown] amlodipine 5 mg tablet 5 mg PO DAILY #90 tab 10/12/19 [Rx Last Taken Unknown] furosemide 40 mg tablet 40 mg PO BID #180 tab 10/13/19 [Rx Last Taken Unknown] levalbuterol HCl 0.63 mg/3 mL solution for nebulization 0.63 mg INHALATION ONCE #90 ml 11/08/19 [Rx Last Taken Unknown] clopidogrel 75 mg tablet 75 mg PO DAILY #90 tab 03/01/20 [Rx Last Taken Unknown] budesonide 0.25 mg/2 mL suspension for nebulization 0.25 mg INHALATION BID #120 ml 06/25/20 [Rx Last Taken Unknown] rosuvastatin 5 mg tablet 5 mg PO QHS #90 tab 07/18/20 [Rx Last Taken Unknown] benzonatate 100 mg PO Q6H PRN PRN 08/16/20 [History Last Taken Unknown] cephalexin 500 mg PO Q8H 08/16/20 [History Last Taken Unknown] Allergy/AdvReac Type Severity Reaction Status Date / Time simvastatin [From Zocor] Allergy Unknown Verified 08/19/20 14:10 lisinopril AdvReac Severe cough Verified 08/19/20 14:10 oxycodone [From Percocet] AdvReac Severe Bad Dreams Verified 08/19/20 14:10 acetaminophen [From Vicodin] AdvReac Vomiting Verified 08/19/20 14:10 hydrocodone bitartrate AdvReac Vomiting Verified 08/19/20 14:10 [From Vicodin] AMMONIUM LACTATE Allergy Rash Uncoded 08/19/20 14:10 Family History Mother CAD (coronary artery disease) Daughter CAD (coronary artery disease) Abdominal aortic aneurysm (AAA) Surgical History H/O coronary artery bypass surgery (2000) History of section History of cholecystectomy History of coronary artery stent placement (03/12/18) History of coronary artery stent placement Hx of appendectomy Hx of CABG Social History household members: family Smoking Status: Never smoker alcohol intake: never substance use type: does not use ROS Review of Systems ROS Unobtainable: Denies due to encephalopathy, due to endotracheal tube, due to mental condition, due to mental status or other Constitutional Constitutional: Reports weakness; Denies anorexia, change in weight, chills, fatigue, fever(s), malaise, night sweats or other Eyes Eyes: Denies blurry vision, change in eye color, change in vision, discharge from eye(s), double vision, erythema, eye pain, loss of vision or other ENT HEENT: Denies abnormal hearing, dysphagia, ear pain, epistaxis, headache(s), h earing loss, nasal congestion, nasal discharge, post nasal drip, sinus pressure, sore throat or other Cardiovascular Cardiovascular: Reports dyspnea on exertion, edema and orthopnea; Denies chest pain, claudication, lightheadedness, palpitations, paroxysmal nocturnal dyspnea, rapid heart rate, syncope or other Respiratory/Chest Respiratory/Chest: Reports cough, dyspnea, shortness of breath at rest and shortness of breath with exertion; Denies excessive phlegm production, hemoptysis, productive cough, wheezing or other Gastrointestinal Gastrointestinal: Denies abdominal pain, coffee ground emesis, constipation, diarrhea, dyspepsia, hematemesis, hematochezia, loose stools, melena, nausea, vomiting or other Genitourinary Genitourinary: Denies burning urination, difficulty urinating, dysuria, hematuria, nocturia, urinary frequency, urinary hesitancy, urinary incontinence, urinary urgency or other Musculoskeletal Musculoskeletal: Reports back pain; Denies arthralgias, joint pain, joint stiffness, joint swelling, myalgias, neck pain or other Neurologic Neurologic: Denies abnormal gait, abnormal speech, confusion, disequilibrium, dizziness, focal weakness, headache(s), numbness, paresthesias, seizure-like activity, seizures, syncope, tingling, tremor(s) or other Psychiatric Psychiatric: Denies anxiety, depression, homicidal ideation, suicidal ideation or other Endocrine Endocrinology: Denies change in body appearance, cold intolerance, excessive sweating, heat intolerance, polydipsia, polyuria or other Hematologic/Lymphatic Hematologic/Lymphatic: Denies anemia, easy bleeding, easy bruising, lymphadenopathy or other Allergic/Immunologic Allergic/Immunologic: Denies rhinitis, hives, eczemia, asthma or other Vital Signs Vital Signs Vital Signs: 08/19/20 13:48 08/19/20 13:50 08/19/20 14:11 Temperature 97.7 F L 97.7 F L Temperature Source Temporal Temporal Pulse Rate 115 H 115 H Respiratory Rate 20 H 20 H Respiratory Effort Short of Breath Respiratory Depth Respiratory Pattern Blood Pressure 134/82 H 134/82 H Blood Pressure Mean 99 99 Blood Pressure Source Blood Pressure Position Blood Pressure Location Pulse Ox 99 99 Oxygen Delivery Method Nasal Cannula Nasal Cannula Oxygen Flow Rate (L/min) 4 4 08/19/20 14:50 08/19/20 16:00 08/19/20 16:01 Temperature 98.7 F 98.7 F Temperature Source Temporal Temporal Pulse Rate 66 64 61 Respiratory Rate 19 H 24 H Respiratory Effort Respiratory Depth Respiratory Pattern Blood Pressure 134/69 H 128/67 H 128/67 H Blood Pressure Mean 90 87 Blood Pressure Source Blood Pressure Position Blood Pressure Location Pulse Ox 100 96 Oxygen Delivery Method Nasal Cannula Nasal Cannula Oxygen Flow Rate (L/min) 4 4 08/19/20 16:33 08/19/20 17:22 08/19/20 17:35 Temperature 98.2 F 97.5 F L Temperature Source Temporal Oral Pulse Rate 63 64 Respiratory Rate 19 H 16 Respiratory Effort Respiratory Depth Respiratory Pattern Blood Pressure 157/45 H 134/66 H Blood Pressure Mean 82 88 Blood Pressure Source Monitor Blood Pressure Position Semi-Fowlers Blood Pressure Location Right Arm Pulse Ox 96 94 Oxygen Delivery Method Nasal Cannula Nasal Cannula Nasal Cannula Oxygen Flow Rate (L/min) 5 5 08/19/20 17:36 08/19/20 18:49 08/19/20 18:55 Temperature Temperature Source Pulse Rate 66 65 Respiratory Rate Respiratory Effort Normal Non-Labored Respiratory Depth Normal Respiratory Pattern Normal Blood Pressure Blood Pressure Mean Blood Pressure Source Blood Pressure Position Blood Pressure Location Pulse Ox Oxygen Delivery Method Nasal Cannula Oxygen Flow Rate (L/min) 5 Weight Weight: 91.4 kg Body Mass Index (BMI) 35.6 Physical Exam Const alert, oriented x3, no apparent distress and well nourished; Negative for average body habitus or healthy appearing Constitutional Narrative: Obese elderly white female sitting up in bed, family at bedside, appears comfortable but mildly dyspneic with conversation General Appearance: cooperative; Negative for uncooperative Orientation / Consciousness: Negative for confused, disoriented or lethargic HEENT normocephalic, head/scalp atraumatic, hearing grossly normal bilaterally, moist oral mucous membranes and oropharynx normal HEENT Narrative: Mallampati 3, no thrush Mouth: oral and palatal mucosa normal Eyes PERRL, EOMs intact bilaterally and conjunctivae normal Neck no lymphadenopathy, supple, no JVD and no carotid bruits Resp normal respiratory effort, no retractions and no use of accessory muscles Resp Narrative: Few crackles at bases, mild dyspnea with conversation Auscultation: crackles; Negative for rales, rhonchi or wheezes Cardio regular rate, regular rhythm, S1 normal heart sound, S2 normal heart sound, no murmurs, no rub, no gallops, no clicks and no JVD Cardio Narrative: Distant heart tones secondary to body habitus GI normal to inspection, nondistended, normoactive bowel sounds, soft to palpation, non-tender, non-distended and hepatosplenomegaly Extremity normal to inspection and full ROM Extremity Narrative: 1+ pitting edema bilateral lower extremities, no clubbing no cyanosis Peripheral Pulses: Yes pulses 2+ throughout Skin no rashes or lesions noted, no wounds, skin turgor normal, no jaundice, no petechiae and no mottling Neuro oriented x3, CN's II-XII intact bilaterally and moves all extremities Neuro Narrative: Mild generalized weakness-proximal greater than distal Sensorium / Orientation: awake, alert, oriented to person, oriented to place and oriented to time Speech: speech normal Psych affect normal Results Lab / Micro Data Attestation: I reviewed the patient's lab results. Result Diagrams: 08/19/20 19:54 08/19/20 14:58 Labs: Laboratory Results - last 24 hr 08/19/20 08/19/20 08/19/20 14:33 14:58 14:58 WBC RBC Hgb Hct MCV MCH MCHC RDW Std Deviation RDW Coeff of Lea Plt Count MPV Immature Gran % (Auto) Neut % (Auto) Lymph % (Auto) Ada % (Auto) Eos % (Auto) Baso % (Auto) Absolute Neuts (auto) Absolute Lymphs (auto) Nucleated RBC % Sodium 138 Potassium 4.7 Chloride 99 Carbon Dioxide 34.0 H Anion Gap 5 BUN 36 H Creatinine 2.77 H Estim Creat Clear Calc 13.62 Est GFR (MDRD) Af Amer 21 L Est GFR (MDRD) Non-Af 18 L BUN/Creatinine Ratio 13.0 Glucose 162 H Lactic Acid 1.4 Calcium 9.4 Total Bilirubin 0.40 AST 28 ALT 22 Alkaline Phosphatase 98 Troponin I < 0.015 B-Natriuretic Peptide Total Protein 8.1 Albumin 3.4 Globulin 4.7 H Albumin/Globulin Ratio 0.7 L Urine Color Urine Clarity Urine pH Ur Specific Cushing Urine Protein Urine Glucose (UA) Urine Ketones Urine Occult Blood Urine Nitrite Urine Bilirubin Urine Urobilinogen Ur Leukocyte Esterase Urine RBC Urine WBC Ur Squamous Epith Cells Urine Bacteria Urine Mucus Ur Random Sodium Urine Creatinine Urine Urea Nitrogen COVID-19 (LESLEY) Cancelled POC Glucose 08/19/20 08/19/20 08/19/20 14:58 18:24 19:50 WBC RBC Hgb Hct MCV MCH MCHC RDW Std Deviation RDW Coeff of Lea Plt Count MPV Immature Gran % (Auto) Neut % (Auto) Lymph % (Auto) Ada % (Auto) Eos % (Auto) Baso % (Auto) Absolute Neuts (auto) Absolute Lymphs (auto) Nucleated RBC % Sodium Potassium Chloride Carbon Dioxide Anion Gap BUN Creatinine Estim Creat Clear Calc Est GFR (MDRD) Af Amer Est GFR (MDRD) Non-Af BUN/Creatinine Ratio Glucose Lactic Acid Calcium Total Bilirubin AST ALT Alkaline Phosphatase Troponin I B-Natriuretic Peptide 257.9 H Total Protein Albumin Globulin Albumin/Globulin Ratio Urine Color Straw Urine Clarity Clear Urine pH 6.0 Ur Specific Cushing 1.010 Urine Protein Negative Urine Glucose (UA) Normal Urine Ketones Negative Urine Occult Blood Negative Urine Nitrite Negative Urine Bilirubin Negative Urine Urobilinogen Normal Ur Leukocyte Esterase Negative Urine RBC 0 SEEN Urine WBC 0 SEEN Ur Squamous Epith Cells 10-25 SEEN Urine Bacteria RARE Urine Mucus 0 SEEN Ur Random Sodium Urine Creatinine Urine Urea Nitrogen COVID-19 ([facility]LEY) POC Glucose 109 08/19/20 08/19/20 19:50 19:54 WBC 11.0 RBC 4.20 Hgb 11.8 L Hct 38.7 MCV 92.1 MCH 28.1 MCHC 30.5 L RDW Std Deviation 47.3 H RDW Coeff of Lea 14.1 Plt Count 218 MPV 10.9 Immature Gran % (Auto) 0.600 Neut % (Auto) 78.9 H Lymph % (Auto) 11.5 L Ada % (Auto) 6.6 Eos % (Auto) 1.9 Baso % (Auto) 0.5 Absolute Neuts (auto) 8.7 H Absolute Lymphs (auto) 1.26 Nucleated RBC % 0 Sodium Potassium Chloride Carbon Dioxide Anion Gap BUN Creatinine Estim Creat Clear Calc Est GFR (MDRD) Af Amer Est GFR (MDRD) Non-Af BUN/Creatinine Ratio Glucose Lactic Acid Calcium Total Bilirubin AST ALT Alkaline Phosphatase Troponin I B-Natriuretic Peptide Total Protein Albumin Globulin Albumin/Globulin Ratio Urine Color Urine Clarity Urine pH Ur Specific Cushing Urine Protein Urine Glucose (UA) Urine Ketones Urine Occult Blood Urine Nitrite Urine Bilirubin Urine Urobilinogen Ur Leukocyte Esterase Urine RBC Urine WBC Ur Squamous Epith Cells Urine Bacteria Urine Mucus Ur Random Sodium 85 Urine Creatinine 47.30 Urine Urea Nitrogen 230 COVID-19 ([facility]LEY) POC Glucose Micro: Microbiology 08/19/20 14:49 SARS-CoV-2 Antigen (Rapid) - Final Mucosa - Nose Radiology Impression Chest X-Ray 08/19/20 15:38 IMPRESSION: No significant interval change. Electronically Signed: Justice Albright MD at 15:51 EDT Tel , Service support , Assessment & Plan Assessment/Plan (1) Acute and chronic respiratory failure with hypoxia: (2) Combined congestive systolic and diastolic heart failure: (3) ESTEBAN (acute kidney injury): (4) CKD (chronic kidney disease) stage 3, GFR 30-59 ml/min: (5) Diabetes mellitus, type II: QUALIFIERS: Diabetes mellitus medical terminologist insulin use: with nursing home use Diabetes mellitus complication status: with other specified complication Qualified Code(s): E11.69 - Type 2 diabetes mellitus with other specified complication; Z79.4 - long term care administrator (current) use of insulin (6) Obesity (BMI 30-39.9): (7) H/O coronary artery bypass surgery: PLAN: Acute on chronic hypoxic respiratory failure -Etiology unclear at this point -Patient at baseline requires 2 to 3 L nasal cannula -Has had to increase this to 3 to 4 L to maintain oxygen saturation and reduce her shortness of breath -BNP is elevated but lower than it was when she presented to the emergency department 3 days ago -BNP is always elevated -40 mg of IV push Lasix given in the emergency department -Continue supplemental oxygen and wean as able -We will hold off on any further diuresis at this time given her ESTEBAN -CT chest with no marked volume overload--> bilateral lower lobe groundglass infiltrates noted -Repeat echocardiogram ESTEBAN on CKD stage IIIb -Baseline serum creatinine is 1.5-1.7 -Serum creatinine on 08/16/2020 was 1.65 -Patient did get a contrast load for CTA on that date -Urine creatinine is now 2.77 -Suspect contrast-induced nephropathy -Check retroperitoneal ultrasound -Check urine studies for calculation of Fe urea -Check urine eosinophils -Consult nephrology Mild anemia -Repeat CBC in a.m. 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 -Hold Lasix and reevaluate tomorrow -Was dosed 40 mg IV push in the emergency department -Treat ALYCE DM-2 -Continue home insulin NPH 46 units twice daily and regular insulin 41 units twice daily -SSI -Accu-Cheks before meals and at bedtime -Carb controlled diet Diabetic neuropathy -Continue gabapentin 200 mg nightly Recent UTI -Continue Keflex -Cultures not in computer -Unclear when medication was initiated -We will need to ascertain this and discontinue after 3 days for uncomplicated UTI Anxiety -Continue home as needed Ativan Obesity -Recommend weight loss -Complicates overall medical care and prognosis -BMI is 35.7 ALYCE -Continue CPAP with 7 cmH2O at bedtime and as needed DVT prophylaxis -Subcu heparin 3 times daily -SCDs GERD -Continue PPI CODE STATUS -Full code Charges/Coding Visit Charges Inpatient E&M: 47216 Init Hosp L3
[2020-08-19] MEDS: Budesonide Respules 0.5 MG/2 ML AMPUL.NEB. INHALATION (20:22)
[2020-08-19] MEDS: Albuterol 2.5 MG/3 ML VIAL.NEB. INHALATION (20:22)
[2020-08-19] MEDS: LORazepam 0.5 MG Tablet PO (20:43)
[2020-08-19] MEDS: Insulin Lispro 100 UNIT/ML INSULN.PEN SC (21:44)
[2020-08-19] MEDS: Cephalexin 250 MG Capsule PO (21:45)
[2020-08-19] MEDS: Heparin Injection (Vial) 5,000 UNIT/ML VIAL 5000 UNIT SC (21:45)
[2020-08-19] MEDS: Atorvastatin Calcium 10 MG Tablet PO (21:45)
[2020-08-19] MEDS: Metoprolol Tartrate 25 MG Tablet PO (21:45)
[2020-08-19] MEDS: Gabapentin 100 MG Capsule 200 MG PO (21:45)
[2020-08-19] MEDS: Insulin NPH Human 100 UNITS/ML PEN 46 UNITS SC (21:57)
[2020-08-19 22:06] LABS: Bedside Glucose 258 mg/dL (70-110)
--- NOTE | 2020-08-19 22:10 | CPS ---
Pt has own cpap, i set it up with distilled water and bled in 4L O2 into home cpap unit.
[2020-08-20] VITALS (14 sets, daily range): BP systolic 122–147; BP diastolic 41–56; PULSE 56–77; RESP 12–28; TEMP 36–37; O2SAT 94–98
[2020-08-20] MEDS: Acetaminophen 325 MG Tablet 650 MG PO (01:12)
[2020-08-20] MEDS: Cephalexin 250 MG Capsule PO ×3 (05:11→21:06)
[2020-08-20] MEDS: Heparin Injection (Vial) 5,000 UNIT/ML VIAL 5000 UNIT SC ×3 (05:11→21:06)
[2020-08-20 05:46] LABS: Absolute Lymphocyte Count 1.13 X10^3/uL (0.83-4.51); Absolute Neutrophil Count 7.3 X10^3/uL (2.0-7.7); Basophil# 0.04 X10^3/uL; Basophil% 0.4 % (0-1); Eosinophil# 0.14 X10^3/uL; Eosinophils% 1.5 % (0-5); Hematocrit 35.3 % (37-47); Hemoglobin 10.8 g/dL (12.0-15.0); Lymphocyte # 1.13 X10^3/ul (0.83-4.51); Mean Corp Hgb Conc 30.6 g/dL (32-36); Mean Corpuscular Hgb 28.4 pg (27.0-32.0); Mean Corpuscular Volume 92.9 fL (81-99); Mean Platelet Vol. 10.4 fl (6.2-12.0); Monocyte# 0.73 X10^3/uL; Monocyte% 7.7 % (0-10); NRBC Flagged by Analyzer 0 % (0-5); Neutrophil # 7.31 X10^3/uL (2.7-7.7); Neutrophil % 77.7 % (47-70); Platelet Count 187 K/mm3 (150-450); RBC Distribution Width CV 13.9 % (11.6-14.6); RBC Distribution Width SD 46.9 fl (35.1-43.9); White Blood Count 9.4 K/mm3 (4.4-11.0)
[2020-08-20 06:18] LABS: ALB/GLOB Ratio 0.7 RATIO (0.9-2.4); AST(SGOT) 21 U/L (15-37); Alanine Aminotransfer ALT/SGPT 19 U/L (13-56); Alkaline Phosphatase 89 U/L (45-117); Anion Gap 3 (5-15); BUN 39 mg/dL (7-18); BUN/Creat Ratio 14.6 RATIO (10-20); Calcium,Total 9.4 mg/dL (8.5-10.1); Chloride 99 mmol/L (98-107); Creatinine, Serum 2.68 mg/dL (0.55-1.02); EST Glomerular Filtration Rate 18 mL/min (>60); Est Glom Filt Rate - Afr Amer 22 mL/min (>60); Estimated Creatinine Clearance 14.08 ml/min; Globulin 4.1 g/dL (2.2-4.2); Glucose 132 mg/dL (74-106); Magnesium 2.6 mg/dL (1.6-2.6); Phosphorus 4.2 mg/dL (2.5-4.9); Potassium 4.8 mmol/L (3.5-5.1); Protein, Total 7.1 g/dL (6.4-8.2); Sodium Level 137 mmol/L (136-145)
--- NOTE | 2020-08-20 07:00 | US_ITS ---
EXAM: US RETROPERITONEAL LIMITED, RENAL : 1940 CLINICAL INDICATION: ESTEBAN on CKD TECHNIQUE: Limited grayscale and color Doppler sonographic evaluation of the retroperitoneum was performed. This report was created using [employer] report [employer] technology. COMPARISON: None. FINDINGS: RIGHT KIDNEY: The right kidney measures 10.8 x 4.7 x 4.0 cm. The right renal cortex measures 1.2 cm. No hydronephrosis. No shadowing calculus. No perinephric collection is demonstrated. LEFT KIDNEY: Of the left kidney measures 9.4 x 3.8 x 4.0 cm. The left renal cortex measures 1.1 cm. No hydronephrosis. No shadowing calculus. No perinephric collection is demonstrated. BLADDER: The bladder measures 12.0 x 5.8 x 8.4 cm for a volume of 304 mL. No post void images were obtained. No ureteral jets were visualized. US/Kidney and Bladder IMPRESSION: No acute findings in the retroperitoneum. at 1006 Reported and signed by: Mario Rossi MD Electronically Signed: Mario Rossi MD at 10:05 EDT Tel , Service support ,
[2020-08-20] MEDS: Albuterol 2.5 MG/3 ML VIAL.NEB. INHALATION ×2 (07:26→19:30)
[2020-08-20] MEDS: Budesonide Respules 0.5 MG/2 ML AMPUL.NEB. INHALATION ×2 (07:26→18:55)
[2020-08-20] MEDS: Aspirin 81 MG TAB.CHEW PO (07:58)
[2020-08-20 08:05] LABS: Bedside Glucose 119 mg/dL (70-110)
--- NOTE | 2020-08-20 08:24 | NURSING ---
Addendum entered by Yolanda See 08/20/20 08:30: Recieved call from Cyndie at [facility] who will fax med list to PCU. Original Note: Call placed to PCP office to obtain updated medication list. Message left on nurse line requesting call back.
[2020-08-20] MEDS: Insulin Lispro 100 UNIT/ML INSULN.PEN 41 UNIT SC ×2 (09:36→17:13)
[2020-08-20] MEDS: Insulin NPH Human 100 UNITS/ML PEN 46 UNITS SC ×2 (09:38→17:11)
[2020-08-20] MEDS: Pantoprazole Sodium 40 MG Tablet PO (09:39)
[2020-08-20] MEDS: amLODIPine 5 MG Tablet PO (09:39)
[2020-08-20] MEDS: Metoprolol Tartrate 25 MG Tablet PO ×2 (09:39→21:06)
[2020-08-20] MEDS: Clopidogrel Bisulfate 75 MG Tablet PO (09:39)
[2020-08-20] MEDS: Calcitriol 0.25 MCG Capsule 0.5 MCG PO (09:40)
--- NOTE | 2020-08-20 11:50 | CASEMGMT ---
JOSE G ANN assessment: Face to Face with patient for initial transition planning/care coordination assessment. JOSE G ANN introduced self and role at [facility], pt voices understanding and consents to assessment. Pt is sitting up in chair in no distress on 3-3.5L nc. Pt is A/Ox4 and answers all questions appropriately. Care providers, pharmacy, and demographics verified. Presentation: Pt c/o SOB and was seen thursday for same, pt also c/o dizziness w/ standing Admitting dx: Dyspnea PCP: John Specialists: anjel Jones; annel Olvera; leydi Santiago [facility]erred [facility]acy: [facility] Insurance: [employer] A/B, [employer] Search Prescription Benefit: Yes Living Will/HPOA: Pt states does not have LW/HPOA but is interested in completing AD's. Tory cho, voices understanding. LNOK: Ronnie Youssef, ; Malka Danielle, granddaughter Living Arrangements: Pt states lives with and granddaughter in 1 story home and states granddaughter helps care for them. Pt states is independent with most ADL's but granddaughter does assist with some. Transportation: Pt states granddaughter drives and states no transportation concerns. DME/HHC: Pt states has the following DME: rollator, w/c, shower chair, nebulizer, cpap, and 3L nc thru [facility]. Pt states no need for any further DME. Pt states has had HHC in the past but has not been to SNF. Pt states no concerns with going home at time of discharge. Pt states is retired. Pt states does not smoke cigarettes or drink ETOH. Pt states no further concerns/needs. CM to follow for any further discharge planning/needs. Advised pt to ask for CM if any further questions/concerns/needs arise, voices understanding. Pt Goal: Home Plan: [place] JOSE G ANN
--- NOTE | 2020-08-20 12:06 | PN.HOSP_ITS ---
Subjective Subjective Patient is a 80-year-old lady admitted with progressive shortness of breath and assessment of acute congestive heart failure made admitted to a monitored bed for further management Objective Data Objective Data Vital Signs: Vital Signs Temp Pulse Resp BP Pulse Ox 98.6 F 74 12 141/45 H 96 08/20/20 07:50 08/20/20 09:39 08/20/20 09:31 08/20/20 09:39 08/20/20 09:31 Oxygen Flow Rate (L/min) 4 Oxygen Delivery Method Nasal Cannula Weight: 91.5 kg Body Mass Index (BMI) 35.6 Intake & Output: Intake and Output for Last 24 Hours 08/18/20 08/19/20 08/20/20 23:59 23:59 23:59 Intake Total 120 / 120 120 / 120 Output Total 300 / 300 100 / 100 Balance -180 / -180 Lab / Micro Data Result Diagrams: 08/20/20 05:40 08/20/20 05:40 Labs: Laboratory Results - last 24 hr 08/19/20 08/19/20 08/19/20 14:33 14:58 14:58 WBC RBC Hgb Hct MCV MCH MCHC RDW Std Deviation RDW Coeff of Lea Plt Count MPV Immature Gran % (Auto) Neut % (Auto) Lymph % (Auto) [place] % (Auto) Eos % (Auto) Baso % (Auto) Absolute Neuts (auto) Absolute Lymphs (auto) Nucleated RBC % Sodium 138 Potassium 4.7 Chloride 99 Carbon Dioxide 34.0 H Anion Gap 5 BUN 36 H Creatinine 2.77 H Estim Creat Clear Calc 13.62 Est GFR (MDRD) Af Amer 21 L Est GFR (MDRD) Non-Af 18 L BUN/Creatinine Ratio 13.0 Glucose 162 H Lactic Acid 1.4 Calcium 9.4 Phosphorus Magnesium Total Bilirubin 0.40 AST 28 ALT 22 Alkaline Phosphatase 98 Troponin I < 0.015 B-Natriuretic Peptide Total Protein 8.1 Albumin 3.4 Globulin 4.7 H Albumin/Globulin Ratio 0.7 L Urine Color Urine Clarity Urine pH Ur Specific [place] Urine Protein Urine Glucose (UA) Urine Ketones Urine Occult Blood Urine Nitrite Urine Bilirubin Urine Urobilinogen Ur Leukocyte Esterase Urine RBC Urine WBC Ur Squamous Epith Cells Urine Bacteria Urine Mucus Ur Random Sodium Urine Creatinine Urine Urea Nitrogen COVID-19 ([facility]LEY) Cancelled POC Glucose 08/19/20 08/19/20 08/19/20 14:58 18:24 19:50 WBC RBC Hgb Hct MCV MCH MCHC RDW Std Deviation RDW Coeff of Lea Plt Count MPV Immature Gran % (Auto) Neut % (Auto) Lymph % (Auto) [place] % (Auto) Eos % (Auto) Baso % (Auto) Absolute Neuts (auto) Absolute Lymphs (auto) Nucleated RBC % Sodium Potassium Chloride Carbon Dioxide Anion Gap BUN Creatinine Estim Creat Clear Calc Est GFR (MDRD) Af Amer Est GFR (MDRD) Non-Af BUN/Creatinine Ratio Glucose Lactic Acid Calcium Phosphorus Magnesium Total Bilirubin AST ALT Alkaline Phosphatase Troponin I B-Natriuretic Peptide 257.9 H Total Protein Albumin Globulin Albumin/Globulin Ratio Urine Color Straw Urine Clarity Clear Urine pH 6.0 Ur Specific [place] 1.010 Urine Protein Negative Urine Glucose (UA) Normal Urine Ketones Negative Urine Occult Blood Negative Urine Nitrite Negative Urine Bilirubin Negative Urine Urobilinogen Normal Ur Leukocyte Esterase Negative Urine RBC 0 SEEN Urine WBC 0 SEEN Ur Squamous Epith Cells 10-25 SEEN Urine Bacteria RARE Urine Mucus 0 SEEN Ur Random Sodium Urine Creatinine Urine Urea Nitrogen COVID-19 ([facility]) POC Glucose 109 08/19/20 08/19/20 08/19/20 19:50 19:54 21:41 WBC 11.0 RBC 4.20 Hgb 11.8 L Hct 38.7 MCV 92.1 MCH 28.1 MCHC 30.5 L RDW Std Deviation 47.3 H RDW Coeff of Lea 14.1 Plt Count 218 MPV 10.9 Immature Gran % (Auto) 0.600 Neut % (Auto) 78.9 H Lymph % (Auto) 11.5 L [place] % (Auto) 6.6 Eos % (Auto) 1.9 Baso % (Auto) 0.5 Absolute Neuts (auto) 8.7 H Absolute Lymphs (auto) 1.26 Nucleated RBC % 0 Sodium Potassium Chloride Carbon Dioxide Anion Gap BUN Creatinine Estim Creat Clear Calc Est GFR (MDRD) Af Amer Est GFR (MDRD) Non-Af BUN/Creatinine Ratio Glucose Lactic Acid Calcium Phosphorus Magnesium Total Bilirubin AST ALT Alkaline Phosphatase Troponin I B-Natriuretic Peptide Total Protein Albumin Globulin Albumin/Globulin Ratio Urine Color Urine Clarity Urine pH Ur Specific [place] Urine Protein Urine Glucose (UA) Urine Ketones Urine Occult Blood Urine Nitrite Urine Bilirubin Urine Urobilinogen Ur Leukocyte Esterase Urine RBC Urine WBC Ur Squamous Epith Cells Urine Bacteria Urine Mucus Ur Random Sodium 85 Urine Creatinine 47.30 Urine Urea Nitrogen 230 COVID-19 ([facility]) POC Glucose 258 H 08/20/20 08/20/20 08/20/20 05:40 05:40 07:48 WBC 9.4 RBC 3.80 L Hgb 10.8 L Hct 35.3 L MCV 92.9 MCH 28.4 MCHC 30.6 L RDW Std Deviation 46.9 H RDW Coeff of Lea 13.9 Plt Count 187 MPV 10.4 Immature Gran % (Auto) 0.700 Neut % (Auto) 77.7 H Lymph % (Auto) 12.0 L [place] % (Auto) 7.7 Eos % (Auto) 1.5 Baso % (Auto) 0.4 Absolute Neuts (auto) 7.3 Absolute Lymphs (auto) 1.13 Nucleated RBC % 0 Sodium 137 Potassium 4.8 Chloride 99 Carbon Dioxide 35.0 H Anion Gap 3 L BUN 39 H Creatinine 2.68 H Estim Creat Clear Calc 14.08 Est GFR (MDRD) Af Amer 22 L Est GFR (MDRD) Non-Af 18 L BUN/Creatinine Ratio 14.6 Glucose 132 H Lactic Acid Calcium 9.4 Phosphorus 4.2 Magnesium 2.6 Total Bilirubin 0.50 AST 21 ALT 19 Alkaline Phosphatase 89 Troponin I B-Natriuretic Peptide Total Protein 7.1 Albumin 3.0 L Globulin 4.1 Albumin/Globulin Ratio 0.7 L Urine Color Urine Clarity Urine pH Ur Specific [place] Urine Protein Urine Glucose (UA) Urine Ketones Urine Occult Blood Urine Nitrite Urine Bilirubin Urine Urobilinogen Ur Leukocyte Esterase Urine RBC Urine WBC Ur Squamous Epith Cells Urine Bacteria Urine Mucus Ur Random Sodium Urine Creatinine Urine Urea Nitrogen COVID-19 ([facility]) POC Glucose 119 H Micro: Microbiology 08/19/20 14:49 Mucosa - Nose SARS-CoV-2 Antigen (Rapid) - Final Radiography Diagnostic Testing: Radiology Impression Chest X-Ray 08/19/20 15:38 IMPRESSION: No significant interval change. Electronically Signed: Justice Albright MD at 15:51 EDT Tel , Service support , Chest CT 08/19/20 16:57 IMPRESSION: LITTLE if any significant change. Grossly stable atelectasis and/or scarring of the lung bases. Electronically Signed: Aravind Starkey MD at 21:05 EDT , Service support , Renal Ultrasound 08/20/20 07:00 IMPRESSION: No acute findings in the retroperitoneum. at 1006 Reported and signed by: Mario Rossi MD Electronically Signed: Mario Rossi MD at 10:05 EDT Tel , Service support , Physical Exam Narrative GENERAL: cooperative HEENT: Atraumatic; EYES; Anicteric, Normal Conjunctiva NECK; supple, normal thyroid, RESPIRATORY: Diminished to auscultation CARDIOVASCULAR: Regular S1 S2, GI: soft, normoactive bowel sounds, : No Renal angle tenderness; EXTREMITIES: edema, no clubbing, MUSCULOSKELETAL: no muscle waisting NEURO: Awake; no lateralizing signs. SKIN: No Rash PSYCH; Flat affect Assessment & Plan Assessment/Plan (1) Acute and chronic respiratory failure with hypoxia: (2) Combined congestive systolic and diastolic heart failure: (3) ESTEBAN (acute kidney injury): (4) CKD (chronic kidney disease) stage 3, GFR 30-59 ml/min: (5) Diabetes mellitus, type II: QUALIFIERS: Diabetes mellitus superintendent marine oil terminal insulin use: with superintendent marine oil terminal use Diabetes mellitus complication status: with other specified complication Qualified Code(s): E11.69 - Type 2 diabetes mellitus with other specified complication; Z79.4 - terminal make up operator (current) use of insulin (6) Obesity (BMI 30-39.9): (7) H/O coronary artery bypass surgery: PLAN: Patient is a 80-year-old lady admitted with progressive shortness of breath and assessment of acute congestive heart failure made admitted to a monitored bed for further management 1. Acute on chronic hypoxic respiratory failure ?Suspected to be secondary to acute congestive heart failure with reduced ejection fraction. Echo obtained on 09/18/2019 demonstrated EF of 45%. Repeat echo ordered. Patient managed with strict input and output, diuretics, as well as supplemental oxygen 2. Acute on chronic kidney disease stage III ?Baseline creatinine 1.5-1.7. Patient did receive creatinine as of today 2.68. As part of her evaluation kidney ultrasound ordered and consultation placed to nephrology 3. Anemia - Secondary to chronic disorder monitoring H&H and transfuse if patient becomes symptomatic or hemoglobin falls below 7 4. Diabetes mellitus type II -patient's oral hypoglycemics held. Placed on long acting insulin, Accu-Cheks a.c. and at bedtime and covered with sliding scale insulin 5. Coronary artery disease With previous CABG patient is followed by cardiology as outpatient 6. Hypertension - Blood pressure controlled, home medications continued with dose adjustment as needed 7. Hypothyroidism - Patient is on levothyroxine home dose continued 8. Obesity with BMI of 35.7 Weight loss advised 9. Gout ?Patient is on allopurinol 10. Dyslipidemia -Patient is on statin therapy, continued at home dose 11. GERD ?On PPI 12. Chronic hypoxic respiratory failure ?Due to combination of CHF and pulmonary hypertension patient is on baseline home O2 13. Diabetic neuropathy ?Patient is on gabapentin 14. Pulmonary arterial hypertension ?Patient is on Lasix 15. Obstructive sleep apnea ?On CPAP at night 16. DVT prophylaxis ?SC heparin Charges/Coding Visit Charges Inpatient E&M: 30323 [facility] L3
[2020-08-20] MEDS: Insulin Lispro 100 UNIT/ML INSULN.PEN SC ×3 (12:17→21:06)
[2020-08-20 12:35] LABS: Bedside Glucose 166 mg/dL (70-110)
--- NOTE | 2020-08-20 14:48 | PCM.CONS.R ---
Assessment & Plan Assessment/Plan (1) ESTEBAN (acute kidney injury): (2) Stage 3b chronic kidney disease: (3) Hypertension: (4) Combined systolic and diastolic congestive heart failure: QUALIFIERS: Heart failure chronicity: chronic Qualified Code(s): I50.42 - Chronic combined systolic (congestive) and diastolic (congestive) heart failure (5) Acute and chronic respiratory failure with hypoxia: PLAN: Plan: Baseline Cr ~ 1.6 mgdl UA is bening. ESTEBAN is likely from contrast exposure Continue holding diuretics as the patient does not seem in acute CHF Will check bladder scan No need for HIGH TENSION TESTER BP is well controlled. Avoid ACEI/ARB 02 support as per the primary service thank you. Renal team will continue to follow Call if any question HPI Consult Data Date of Consult: 08/20/20 HPI Narrative HPI Narrative: SUBHASH GASPAR, is a 80 F [facility] of CHF with reduced EF, CKD stage 3 b, DM, [place], ALYCE, CAD s/p CABG. Patient presented with worsening SOB. Patient presented with same complaint on 08/[address] angio of her chest ( negative for PE). Patient was instructed to increase home 02. Patient continued to be in SOB and came to ED yesterday lab showed Cr up to 2.77 mg/dl. home lasix held. CT showed B/l atelectasis Patient is now on 4-5L O2 No NSAIDs use. Patient said she had to strain this am to urinate. ROS: 12 systems review is negative except some SOB which is better [facility] Medical History Acute and chronic respiratory failure with hypoxia Acute diastolic CHF (congestive heart failure) Asthma Atherosclerosis 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 angina pectoris Benign essential hypertension Chronic renal failure, stage 4 (severe) Diabetes mellitus, type II Dyslipidemia GERD (gastroesophageal reflux disease) Hypothyroidism IBS (irritable bowel syndrome) Ischemic cardiomyopathy Obesity (BMI 30-39.9) Obstructive sleep apnea ALYCE (obstructive sleep apnea) Rheumatoid arthritis Secondary pulmonary arterial hypertension TIA (transient ischemic attack) Type 2 diabetes mellitus Home Medications omeprazole 40 mg PO DAILY 08/23/13 [History Last Taken 11/10/18] albuterol sulfate 2.5 mg INHALATION Q6H PRN PRN 04/02/17 [History Last Taken 11/10/18] insulin regular human 45 unit SQ BID 05/10/17 [History Last Taken 11/10/18] calcitriol 0.5 mcg PO DAILY 05/17/17 [History Last Taken 11/10/18] Oxygen, Home [Home Oxygen] 3 lpm NASAL DAILY 03/10/18 [History Last Taken 11/10/18] allopurinol 200 mg PO DAILY 03/10/18 [History Last Taken 11/10/18] insulin NPH isoph U-100 human 50 units SUBCUT BID 03/10/18 [History Last Taken 11/10/18] nitroglycerin 0.4 mg SUBLINGUAL Q5M PRN #1 bottle 03/13/18 [Rx Last Taken Unknown] lorazepam 0.5 mg tablet 0.5 mg PO 4X/DAY PRN 10 Days #20 tab 08/10/18 [History Last Taken Unknown] gabapentin 100 mg PO BID 02/13/19 [History Last Taken Unknown] metoprolol tartrate 25 mg tablet 50 mg PO BID tab 02/22/19 [History Last Taken Unknown] spironolactone 25 mg tablet 25 mg PO DAILY #90 tab 07/29/19 [Rx Last Taken Unknown] furosemide 40 mg tablet 40 mg PO BID #180 tab 10/13/19 [Rx Last Taken Unknown] levalbuterol HCl 0.63 mg/3 mL solution for nebulization 0.63 mg INHALATION ONCE #90 ml 11/08/19 [Rx Last Taken Unknown] clopidogrel 75 mg tablet 75 mg PO DAILY #90 tab 03/01/20 [Rx Last Taken Unknown] budesonide 0.25 mg/2 mL suspension for nebulization 0.25 mg INHALATION BID #120 ml 06/25/20 [Rx Last Taken Unknown] rosuvastatin 5 mg tablet 5 mg PO QHS #90 tab 07/18/20 [Rx Last Taken Unknown] benzonatate 100 mg PO Q6H PRN PRN 08/16/20 [History Last Taken Unknown] cephalexin 500 mg PO Q8H 08/16/20 [History Last Taken Unknown] amlodipine 2.5 mg PO DAILY 08/20/20 [History Last Taken Unknown] aspirin 81 mg PO/SL DAILY 08/20/20 [History Last Taken Unknown] baclofen 5 mg PO 4X/DAY PRN PRN 08/20/20 [History Last Taken Unknown] clotrimazole-betameth dip-zinc 1 applic TRANSDERMAL BID 08/20/20 [History Last Taken Unknown] docusate sodium [Dulcolax Stool Softener (dss)] 100 mg PO DAILY PRN 08/20/20 [History Last Taken Unknown] metronidazole 1 applic 08/20/20 [History Last Taken Unknown] Allergy/AdvReac Type Severity Reaction Status Date / Time simvastatin [From Zocor] Allergy Unknown Verified 08/19/20 14:10 lisinopril AdvReac Severe cough Verified 08/19/20 14:10 oxycodone [From Percocet] AdvReac Severe Bad Dreams Verified 08/19/20 14:10 acetaminophen [From Vicodin] AdvReac Vomiting Verified 08/19/20 14:10 hydrocodone bitartrate AdvReac Vomiting Verified 08/19/20 14:10 [From Vicodin] AMMONIUM LACTATE Allergy Rash Uncoded 08/19/20 14:10 Family History Mother CAD (coronary artery disease) Daughter CAD (coronary artery disease) Abdominal aortic aneurysm (AAA) Surgical History H/O coronary artery bypass surgery (2000) History of section History of cholecystectomy History of coronary artery stent placement (03/12/18) History of coronary artery stent placement Hx of appendectomy Hx of CABG Social History household members: family Smoking Status: Never smoker alcohol intake: never substance use type: does not use Physical Exam Const alert and oriented x3 General Appearance: cooperative HEENT normocephalic Head and Scalp: normocephalic Eyes PERRL and EOMs intact bilaterally Neck supple and no JVD Lymph Lymphatic: no lymphadenopathy noted Resp normal air movement Auscultation: other decreased BS over both lungs bases Cardio regular rate, regular rhythm and S1 normal heart sound Rate: regular rate GI normal to inspection, nondistended, normoactive bowel sounds, soft to palpation, non-tender and non-distended Extremity Extremity Narrative: +1 edema of LE Psych Attitude: calm Activity / Motor Behavior: appropriate eye contact Speech: normal speech Lab / Micro Data Result Diagrams: 08/20/20 05:40 08/20/20 05:40 Labs: Laboratory Results - last 24 hr 08/19/20 08/19/20 08/19/20 14:33 14:58 14:58 WBC RBC Hgb Hct MCV MCH MCHC RDW Std Deviation RDW Coeff of Lea Plt Count MPV Immature Gran % (Auto) Neut % (Auto) Lymph % (Auto) [place] % (Auto) Eos % (Auto) Baso % (Auto) Absolute Neuts (auto) Absolute Lymphs (auto) Nucleated RBC % Sodium 138 Potassium 4.7 Chloride 99 Carbon Dioxide 34.0 H Anion Gap 5 BUN 36 H Creatinine 2.77 H Estim Creat Clear Calc 13.62 Est GFR (MDRD) Af Amer 21 L Est GFR (MDRD) Non-Af 18 L BUN/Creatinine Ratio 13.0 Glucose 162 H Lactic Acid 1.4 Calcium 9.4 Phosphorus Magnesium Total Bilirubin 0.40 AST 28 ALT 22 Alkaline Phosphatase 98 Troponin I < 0.015 B-Natriuretic Peptide Total Protein 8.1 Albumin 3.4 Globulin 4.7 H Albumin/Globulin Ratio 0.7 L Urine Color Urine Clarity Urine pH Ur Specific [place] Urine Protein Urine Glucose (UA) Urine Ketones Urine Occult Blood Urine Nitrite Urine Bilirubin Urine Urobilinogen Ur Leukocyte Esterase Urine RBC Urine WBC Ur Squamous Epith Cells Urine Bacteria Urine Mucus Ur Random Sodium Urine Creatinine Urine Urea Nitrogen COVID-19 ([facility]LEY) Cancelled POC Glucose 08/19/20 08/19/20 08/19/20 14:58 18:24 19:50 WBC RBC Hgb Hct MCV MCH MCHC RDW Std Deviation RDW Coeff of Lea Plt Count MPV Immature Gran % (Auto) Neut % (Auto) Lymph % (Auto) [place] % (Auto) Eos % (Auto) Baso % (Auto) Absolute Neuts (auto) Absolute Lymphs (auto) Nucleated RBC % Sodium Potassium Chloride Carbon Dioxide Anion Gap BUN Creatinine Estim Creat Clear Calc Est GFR (MDRD) Af Amer Est GFR (MDRD) Non-Af BUN/Creatinine Ratio Glucose Lactic Acid Calcium Phosphorus Magnesium Total Bilirubin AST ALT Alkaline Phosphatase Troponin I B-Natriuretic Peptide 257.9 H Total Protein Albumin Globulin Albumin/Globulin Ratio Urine Color Straw Urine Clarity Clear Urine pH 6.0 Ur Specific [place] 1.010 Urine Protein Negative Urine Glucose (UA) Normal Urine Ketones Negative Urine Occult Blood Negative Urine Nitrite Negative Urine Bilirubin Negative Urine Urobilinogen Normal Ur Leukocyte Esterase Negative Urine RBC 0 SEEN Urine WBC 0 SEEN Ur Squamous Epith Cells 10-25 SEEN Urine Bacteria RARE Urine Mucus 0 SEEN Ur Random Sodium Urine Creatinine Urine Urea Nitrogen COVID-19 ([place]LEY) POC Glucose 109 08/19/20 08/19/20 08/19/20 19:50 19:54 21:41 WBC 11.0 RBC 4.20 Hgb 11.8 L Hct 38.7 MCV 92.1 MCH 28.1 MCHC 30.5 L RDW Std Deviation 47.3 H RDW Coeff of Lea 14.1 Plt Count 218 MPV 10.9 Immature Gran % (Auto) 0.600 Neut % (Auto) 78.9 H Lymph % (Auto) 11.5 L [place] % (Auto) 6.6 Eos % (Auto) 1.9 Baso % (Auto) 0.5 Absolute Neuts (auto) 8.7 H Absolute Lymphs (auto) 1.26 Nucleated RBC % 0 Sodium Potassium Chloride Carbon Dioxide Anion Gap BUN Creatinine Estim Creat Clear Calc Est GFR (MDRD) Af Amer Est GFR (MDRD) Non-Af BUN/Creatinine Ratio Glucose Lactic Acid Calcium Phosphorus Magnesium Total Bilirubin AST ALT Alkaline Phosphatase Troponin I B-Natriuretic Peptide Total Protein Albumin Globulin Albumin/Globulin Ratio Urine Color Urine Clarity Urine pH Ur Specific [place] Urine Protein Urine Glucose (UA) Urine Ketones Urine Occult Blood Urine Nitrite Urine Bilirubin Urine Urobilinogen Ur Leukocyte Esterase Urine RBC Urine WBC Ur Squamous Epith Cells Urine Bacteria Urine Mucus Ur Random Sodium 85 Urine Creatinine 47.30 Urine Urea Nitrogen 230 COVID-19 ([place]) POC Glucose 258 H 08/20/20 08/20/20 08/20/20 05:40 05:40 07:48 WBC 9.4 RBC 3.80 L Hgb 10.8 L Hct 35.3 L MCV 92.9 MCH 28.4 MCHC 30.6 L RDW Std Deviation 46.9 H RDW Coeff of Lea 13.9 Plt Count 187 MPV 10.4 Immature Gran % (Auto) 0.700 Neut % (Auto) 77.7 H Lymph % (Auto) 12.0 L [place] % (Auto) 7.7 Eos % (Auto) 1.5 Baso % (Auto) 0.4 Absolute Neuts (auto) 7.3 Absolute Lymphs (auto) 1.13 Nucleated RBC % 0 Sodium 137 Potassium 4.8 Chloride 99 Carbon Dioxide 35.0 H Anion Gap 3 L BUN 39 H Creatinine 2.68 H Estim Creat Clear Calc 14.08 Est GFR (MDRD) Af Amer 22 L Est GFR (MDRD) Non-Af 18 L BUN/Creatinine Ratio 14.6 Glucose 132 H Lactic Acid Calcium 9.4 Phosphorus 4.2 Magnesium 2.6 Total Bilirubin 0.50 AST 21 ALT 19 Alkaline Phosphatase 89 Troponin I B-Natriuretic Peptide Total Protein 7.1 Albumin 3.0 L Globulin 4.1 Albumin/Globulin Ratio 0.7 L Urine Color Urine Clarity Urine pH Ur Specific [place] Urine Protein Urine Glucose (UA) Urine Ketones Urine Occult Blood Urine Nitrite Urine Bilirubin Urine Urobilinogen Ur Leukocyte Esterase Urine RBC Urine WBC Ur Squamous Epith Cells Urine Bacteria Urine Mucus Ur Random Sodium Urine Creatinine Urine Urea Nitrogen COVID-19 ([facility]) POC Glucose 119 H 08/20/20 12:10 WBC RBC Hgb Hct MCV MCH MCHC RDW Std Deviation RDW Coeff of Lea Plt Count MPV Immature Gran % (Auto) Neut % (Auto) Lymph % (Auto) [place] % (Auto) Eos % (Auto) Baso % (Auto) Absolute Neuts (auto) Absolute Lymphs (auto) Nucleated RBC % Sodium Potassium Chloride Carbon Dioxide Anion Gap BUN Creatinine Estim Creat Clear Calc Est GFR (MDRD) Af Amer Est GFR (MDRD) Non-Af BUN/Creatinine Ratio Glucose Lactic Acid Calcium Phosphorus Magnesium Total Bilirubin AST ALT Alkaline Phosphatase Troponin I B-Natriuretic Peptide Total Protein Albumin Globulin Albumin/Globulin Ratio Urine Color Urine Clarity Urine pH Ur Specific [place] Urine Protein Urine Glucose (UA) Urine Ketones Urine Occult Blood Urine Nitrite Urine Bilirubin Urine Urobilinogen Ur Leukocyte Esterase Urine RBC Urine WBC Ur Squamous Epith Cells Urine Bacteria Urine Mucus Ur Random Sodium Urine Creatinine Urine Urea Nitrogen COVID-19 ([facility]LEY) POC Glucose 166 H Micro: Microbiology 08/19/20 14:49 SARS-CoV-2 Antigen (Rapid) - Final Mucosa - Nose Radiology Impression Chest X-Ray 08/19/20 15:38 IMPRESSION: No significant interval change. Electronically Signed: Justice Albright MD at 15:51 EDT Tel , Service support , Chest CT 08/19/20 16:57 IMPRESSION: LITTLE if any significant change. Grossly stable atelectasis and/or scarring of the lung bases. Electronically Signed: Aravind Starkey MD at 21:05 EDT , Service support , Renal Ultrasound 08/20/20 07:00 IMPRESSION: No acute findings in the retroperitoneum. at 1006 Reported and signed by: Mario Rossi MD Electronically Signed: Mario Rossi MD at 10:05 EDT Tel , Service support ,
[2020-08-20] MEDS: 0.9% Saline Lock 10 ML Syringe IV (15:24)
--- NOTE | 2020-08-20 16:24 | CHAPLAIN ---
Type of Pastoral Visit _x__ Initial Visit ___ Follow-up Visit ___ On-call Visit ___ General Patient Visit ___ Spiritual Assessment ___ Family Conference ___ Bereavement ___ Rapid Response ___ Code Blue ___ Other (describe below) Pastoral Care Referral From _x__ Patient ___ Family ___ Nurse ___ Physician ___ Document Improvement Specialist ___ Neurological Surgeon ___ Other (describe below) Sacrament/Intervention _x__ Active listening ___ Anointing ___ Orthodox ___ Bereavement ___ Communion ___ Nga exploration ___ ___ Life review _x__ Prayer ___ Reconciliation ___ Sacrament of Sick ___ Supportive presence ___ Wedding ___ Other (describe below) Pastoral Comments
[2020-08-20 17:00] LABS: Bedside Glucose 169 mg/dL (70-110)
[2020-08-20] MEDS: Furosemide 40 MG Tablet PO (17:11)
[2020-08-20] MEDS: Atorvastatin Calcium 10 MG Tablet PO (21:06)
[2020-08-20] MEDS: Gabapentin 100 MG Capsule 200 MG PO (21:06)
[2020-08-20 22:15] LABS: Bedside Glucose 168 mg/dL (70-110)
[2020-08-21] VITALS (7 sets, daily range): BP systolic 113–132; BP diastolic 44–60; PULSE 62–74; RESP 18–20; TEMP 36.3–36.9; O2SAT 94–100
[2020-08-21] MEDS: Heparin Injection (Vial) 5,000 UNIT/ML VIAL 5000 UNIT SC (05:42)
[2020-08-21] MEDS: Cephalexin 250 MG Capsule PO ×2 (05:42→15:48)
[2020-08-21] MEDS: Albuterol 2.5 MG/3 ML VIAL.NEB. INHALATION (07:29)
[2020-08-21] MEDS: Budesonide Respules 0.5 MG/2 ML AMPUL.NEB. INHALATION (07:29)
[2020-08-21] MEDS: Pantoprazole Sodium 40 MG Tablet PO (08:58)
[2020-08-21] MEDS: Calcitriol 0.25 MCG Capsule 0.5 MCG PO (08:58)
[2020-08-21] MEDS: Clopidogrel Bisulfate 75 MG Tablet PO (08:59)
[2020-08-21] MEDS: Furosemide 40 MG Tablet PO (08:59)
[2020-08-21] MEDS: Metoprolol Tartrate 25 MG Tablet PO (08:59)
[2020-08-21] MEDS: amLODIPine 5 MG Tablet PO (08:59)
[2020-08-21] MEDS: Aspirin 81 MG TAB.CHEW PO (08:59)
[2020-08-21 09:06] LABS: Bedside Glucose 76 mg/dL (70-110)
[2020-08-21 09:40] LABS: Hematocrit 34.8 % (37-47); Hemoglobin 10.5 g/dL (12.0-15.0); Mean Corp Hgb Conc 30.2 g/dL (32-36); Mean Corpuscular Hgb 28.2 pg (27.0-32.0); Mean Corpuscular Volume 93.3 fL (81-99); Mean Platelet Vol. 10.8 fl (6.2-12.0); Platelet Count 193 K/mm3 (150-450); RBC Distribution Width CV 14.2 % (11.6-14.6); RBC Distribution Width SD 47.8 fl (35.1-43.9); Red Blood Count 3.73 M/mm3 (4.2-5.4); White Blood Count 9.5 K/mm3 (4.4-11.0)
[2020-08-21 10:10] LABS: Anion Gap 4 (5-15); BUN 36 mg/dL (7-18); BUN/Creat Ratio 16.1 RATIO (10-20); Calcium,Total 9.5 mg/dL (8.5-10.1); Chloride 101 mmol/L (98-107); Creatinine, Serum 2.24 mg/dL (0.55-1.02); EST Glomerular Filtration Rate 22 mL/min (>60); Est Glom Filt Rate - Afr Amer 27 mL/min (>60); Estimated Creatinine Clearance 16.85 ml/min; Glucose 97 mg/dL (74-106); Potassium 4.6 mmol/L (3.5-5.1); Sodium Level 140 mmol/L (136-145)
--- NOTE | 2020-08-21 10:43 | PCM.PN.HOSP ---
Subjective Subjective Patient seen admit to significant improvement in her overall condition. Slight improvement in kidney function as well. Was seen in consultation by nephrology note and recommendations reviewed Objective Data Objective Data Vital Signs: Vital Signs Temp Pulse Resp BP Pulse Ox 98.4 F 74 18 132/46 H 96 08/21/20 08:46 08/21/20 08:59 08/21/20 08:46 08/21/20 08:59 08/21/20 08:46 Oxygen Flow Rate (L/min) 4 Oxygen Delivery Method Nasal Cannula Weight: 91.6 kg Body Mass Index (BMI) 35.6 Intake & Output: Intake and Output for Last 24 Hours 08/19/20 08/20/20 08/21/20 23:59 23:59 23:59 Intake Total 120 / 120 1000 / 1000 Output Total 300 / 300 700 / 700 Balance -180 / -180 300 / 300 Lab / Micro Data Result Diagrams: 08/21/20 09:25 08/21/20 09:25 Labs: Laboratory Results - last 24 hr 08/20/20 08/20/20 08/20/20 12:10 16:47 21:03 WBC RBC Hgb Hct MCV MCH MCHC RDW Std Deviation RDW Coeff of Lea Plt Count MPV Sodium Potassium Chloride Carbon Dioxide Anion Gap BUN Creatinine Estim Creat Clear Calc Est GFR (MDRD) Af Amer Est GFR (MDRD) Non-Af BUN/Creatinine Ratio Glucose Calcium POC Glucose 166 H 169 H 168 H 08/21/20 08/21/20 08/21/20 08:40 09:25 09:25 WBC 9.5 RBC 3.73 L Hgb 10.5 L Hct 34.8 L MCV 93.3 MCH 28.2 MCHC 30.2 L RDW Std Deviation 47.8 H RDW Coeff of Lea 14.2 Plt Count 193 MPV 10.8 Sodium 140 Potassium 4.6 Chloride 101 Carbon Dioxide 35.0 H Anion Gap 4 L BUN 36 H Creatinine 2.24 H Estim Creat Clear Calc 16.85 Est GFR (MDRD) Af Amer 27 L Est GFR (MDRD) Non-Af 22 L BUN/Creatinine Ratio 16.1 Glucose 97 Calcium 9.5 POC Glucose 76 Micro: Microbiology 08/19/20 14:49 Mucosa - Nose SARS-CoV-2 Antigen (Rapid) - Final Radiography Diagnostic Testing: Radiology Impression Echocardiogram 08/19/20 18:10 Interpretation Summary Normal LV size. The estimated ejection fraction is 45 %. There is mild global hypokinesis of the left ventricle. Stage 2 diastolic dysfunction. Pulmonary artery systolic pressure is 60 mmHg. Moderate pulmonary hypertension. Contrast injection was performed. Compared to previous study, the left ventricular systolic function is the same.. Ordering Physician: Ritika Pereyra Referring Physician: DARLENE BECK Performed By: Yolanda Chowdary, ROBBYCS, RVT Physical Exam Narrative GENERAL: cooperative HEENT: Atraumatic; EYES; Anicteric, Normal Conjunctiva NECK; supple, normal thyroid, RESPIRATORY: Diminished to auscultation CARDIOVASCULAR: Regular S1 S2, GI: soft, normoactive bowel sounds, : No Renal angle tenderness; EXTREMITIES: edema, no clubbing, MUSCULOSKELETAL: no muscle waisting NEURO: Awake; no lateralizing signs. SKIN: No Rash PSYCH; Flat affect Assessment & Plan Assessment/Plan (1) Acute and chronic respiratory failure with hypoxia: (2) Combined congestive systolic and diastolic heart failure: (3) ESTEBAN (acute kidney injury): (4) CKD (chronic kidney disease) stage 3, GFR 30-59 ml/min: (5) Diabetes mellitus, type II: QUALIFIERS: Diabetes mellitus half-way insulin use: with kerrick kleaner operator use Diabetes mellitus complication status: with other specified complication Qualified Code(s): E11.69 - Type 2 diabetes mellitus with other specified complication; Z79.4 - background check coordinator (current) use of insulin (6) Obesity (BMI 30-39.9): (7) H/O coronary artery bypass surgery: PLAN: Patient is a 80-year-old lady admitted with progressive shortness of breath and assessment of acute congestive heart failure made admitted to a monitored bed for further management 1. Acute on chronic hypoxic respiratory failure ?Suspected to be secondary to acute congestive heart failure with reduced ejection fraction. Echo obtained on 09/18/2019 demonstrated EF of 45%. Repeat echo ordered. Patient managed with strict input and output, diuretics, as well as supplemental oxygen. ?08/21/2020 repeat echo demonstrated EF of 45%. Patient improves symptom linder with initiation of Lasix 2. Acute on chronic kidney disease stage III ?Baseline creatinine 1.5-1.7. Patient did receive creatinine as of today 2.68. As part of her evaluation kidney ultrasound ordered and consultation placed to nephrology -08/21/2020 slight improvement in kidney function as well. Was seen in consultation by nephrology note and recommendations reviewed 3. Anemia - Secondary to chronic disorder monitoring H&H and transfuse if patient becomes symptomatic or hemoglobin falls below 7 4. Diabetes mellitus type II -patient's oral hypoglycemics held. Placed on long acting insulin, Accu-Cheks a.c. and at bedtime and covered with sliding scale insulin 5. Coronary artery disease With previous CABG patient is followed by cardiology as outpatient 6. Hypertension - Blood pressure controlled, home medications continued with dose adjustment as needed 7. Hypothyroidism - Patient is on levothyroxine home dose continued 8. Obesity with BMI of 35.7 Weight loss advised 9. Gout ?Patient is on allopurinol 10. Dyslipidemia -Patient is on statin therapy, continued at home dose 11. GERD ?On PPI 12. Chronic hypoxic respiratory failure ?Due to combination of CHF and pulmonary hypertension patient is on baseline home O2 13. Diabetic neuropathy ?Patient is on gabapentin 14. Pulmonary arterial hypertension ?Patient is on Lasix 15. Obstructive sleep apnea ?On CPAP at night 16. DVT prophylaxis ?SC heparin Charges/Coding Visit Charges Inpatient E&M: 62355 Subs Hosp L2
[2020-08-21] MEDS: Insulin Lispro 100 UNIT/ML INSULN.PEN SC (11:34)
[2020-08-21 11:41] LABS: Bedside Glucose 225 mg/dL (70-110)
--- NOTE | 2020-08-21 12:01 | NURSING ---
RNCM Note: Palliative Referral screening Tool completed per [facility] guidelines d/t Lace score. Patient met criteria for referral- Dr Garcias informed and no VO/request to send referral at this time. Dragan Fajardo RNCM
--- NOTE | 2020-08-21 13:11 | CASEMGMT ---
SOCIAL WORK Referral Source: Pie Maker MachineDragan Reason for Consult: Advanced Directives Met with patient in room. Introduced role and reason for referral. Education provided on Advanced Directives. Patient reports would like to name granddaughter as HPOA. Patient requesting to review documents with granddaughter and this worker check back later today. Patient states granddaughter to be in to visit around 3pm today. Fay Ruiz, LINE ASSEMBLY UTILITY WORKER, PRIEST
--- NOTE | 2020-08-21 14:38 | PCM.DC.SUM ---
Providers Date of Admission: 08/19/20 Primary Care Physician: Dr. Darlene Beck MD Consultations 08/19/20 18:06 Consult: Nephrology Routine Consulting Provider: Tammie Weldon Reason for Consult: ESTEBAN on CKD EMERGENT Consult: No MD Notified: Yes Date Notified: 08/19/20 Time Notified: 18:07 Method of Notification: Verbal Reason For Visit: DYSPNE Diagnosis Discharge Diagnosis (1) Acute and chronic respiratory failure with hypoxia: Status: Chronic Code(s): J96.21 - Acute and chronic respiratory failure with hypoxia (2) Combined congestive systolic and diastolic heart failure: Status: Acute Code(s): I50.40 - Unspecified combined systolic (congestive) and diastolic (congestive) heart failure (3) ESTEBAN (acute kidney injury): Status: Acute Code(s): N17.9 - Acute kidney failure, unspecified (4) CKD (chronic kidney disease) stage 3, GFR 30-59 ml/min: Status: Chronic Code(s): N18.30 - Chronic kidney disease, stage 3 unspecified (5) Diabetes mellitus, type II: Status: Chronic Code(s): E11.9 - Type 2 diabetes mellitus without complications Qualifiers: Diabetes mellitus half-way insulin use: with parts counterman use Diabetes mellitus complication status: with other specified complication Qualified Code(s): E11.69 - Type 2 diabetes mellitus with other specified complication; Z79.4 - [facility] (current) use of insulin (6) Obesity (BMI 30-39.9): Status: Chronic Code(s): E66.9 - Obesity, unspecified (7) H/O coronary artery bypass surgery: Status: Chronic Code(s): Z95.1 - Presence of aortocoronary bypass graft Medications at Discharge Home Medications omeprazole 40 mg PO DAILY 08/23/13 albuterol sulfate 2.5 mg INHALATION Q6H PRN PRN 04/02/17 insulin regular human 45 unit SQ BID 05/10/17 calcitriol 0.5 mcg PO DAILY 05/17/17 Oxygen, Home [Home Oxygen] 3 lpm NASAL DAILY 03/10/18 allopurinol 200 mg PO DAILY 03/10/18 insulin NPH isoph U-100 human 50 units SUBCUT BID 03/10/18 nitroglycerin 0.4 mg SUBLINGUAL Q5M PRN #1 bottle 03/13/18 lorazepam 0.5 mg tablet 0.5 mg PO 4X/DAY PRN 10 Days #20 tab 08/10/18 gabapentin 100 mg PO BID 02/13/19 metoprolol tartrate 25 mg tablet 50 mg PO BID tab 02/22/19 spironolactone 25 mg tablet 25 mg PO DAILY #90 tab 07/29/19 furosemide 40 mg tablet 40 mg PO BID #180 tab 10/13/19 levalbuterol HCl 0.63 mg/3 mL solution for nebulization 0.63 mg INHALATION ONCE #90 ml 11/08/19 clopidogrel 75 mg tablet 75 mg PO DAILY #90 tab 03/01/20 budesonide 0.25 mg/2 mL suspension for nebulization 0.25 mg INHALATION BID #120 ml 06/25/20 rosuvastatin 5 mg tablet 5 mg PO QHS #90 tab 07/18/20 benzonatate 100 mg PO Q6H PRN PRN 08/16/20 cephalexin 500 mg PO Q8H 08/16/20 amlodipine 2.5 mg PO DAILY 08/20/20 aspirin 81 mg PO/SL DAILY 08/20/20 baclofen 5 mg PO 4X/DAY PRN PRN 08/20/20 clotrimazole-betameth dip-zinc 1 applic TRANSDERMAL BID 08/20/20 docusate sodium [Dulcolax Stool Softener (dss)] 100 mg PO DAILY PRN 08/20/20 metronidazole 1 applic 08/20/20 Hospital Course Summary of Care Provided Minutes Spent on Discharge: 45 Hospital Course: 1. Acute on chronic hypoxic respiratory failure ?Suspected to be secondary to acute congestive heart failure with reduced ejection fraction. Echo obtained on 09/18/2019 demonstrated EF of 45%. Repeat echo ordered. Patient managed with strict input and output, diuretics, as well as supplemental oxygen. ?08/21/2020 repeat echo demonstrated EF of 45%. Patient improves symptom linder with initiation of Lasix 2. Acute on chronic kidney disease stage III ?Baseline creatinine 1.5-1.7. Patient did receive creatinine as of today 2.68. As part of her evaluation kidney ultrasound ordered and consultation placed to nephrology -08/21/2020 slight improvement in kidney function as well. Was seen in consultation by nephrology note and recommendations reviewed. Case was discussed with Dr. Aziz [place] with nephrology he recommended discharge home since patient kidney function had improved. 3. Anemia - Secondary to chronic disorder monitoring H&H and transfuse if patient becomes symptomatic or hemoglobin falls below 7 4. Diabetes mellitus type II -patient's oral hypoglycemics held. Placed on long acting insulin, Accu-Cheks a.c. and at bedtime and covered with sliding scale insulin 5. Coronary artery disease With previous CABG patient is followed by cardiology as outpatient 6. Hypertension - Blood pressure controlled, home medications continued with dose adjustment as needed 7. Hypothyroidism - Patient is on levothyroxine home dose continued 8. Obesity with BMI of 35.7 Weight loss advised 9. Gout ?Patient is on allopurinol 10. Dyslipidemia -Patient is on statin therapy, continued at home dose 11. GERD ?On PPI 12. Chronic hypoxic respiratory failure ?Due to combination of CHF and pulmonary hypertension patient is on baseline home O2 13. Diabetic neuropathy ?Patient is on gabapentin 14. Pulmonary arterial hypertension ?Patient is on Lasix 15. Obstructive sleep apnea ?On CPAP at night 16. DVT prophylaxis ?SC heparin Physical Exam Narrative GENERAL: cooperative HEENT: Atraumatic; EYES; Anicteric, Normal Conjunctiva NECK; supple, normal thyroid, RESPIRATORY: Diminished to auscultation CARDIOVASCULAR: Regular S1 S2, GI: soft, normoactive bowel sounds, : No Renal angle tenderness; EXTREMITIES: edema, no clubbing, MUSCULOSKELETAL: no muscle waisting NEURO: Awake; no lateralizing signs. SKIN: No Rash PSYCH; Flat affect Weight / BMI Weight Weight: 91.6 kg Body Mass Index (BMI) 35.6 ABG / Lab / Microbiology Data Result Diagrams: 08/21/20 09:25 08/21/20 09:25 Laboratory: Laboratory Results - last 24 hr 08/20/20 08/20/20 08/21/20 16:47 21:03 08:40 WBC RBC Hgb Hct MCV MCH MCHC RDW Std Deviation RDW Coeff of Lea Plt Count MPV Sodium Potassium Chloride Carbon Dioxide Anion Gap BUN Creatinine Estim Creat Clear Calc Est GFR (MDRD) Af Amer Est GFR (MDRD) Non-Af BUN/Creatinine Ratio Glucose Calcium POC Glucose 169 H 168 H 76 08/21/20 08/21/20 08/21/20 09:25 09:25 11:33 WBC 9.5 RBC 3.73 L Hgb 10.5 L Hct 34.8 L MCV 93.3 MCH 28.2 MCHC 30.2 L RDW Std Deviation 47.8 H RDW Coeff of Lea 14.2 Plt Count 193 MPV 10.8 Sodium 140 Potassium 4.6 Chloride 101 Carbon Dioxide 35.0 H Anion Gap 4 L BUN 36 H Creatinine 2.24 H Estim Creat Clear Calc 16.85 Est GFR (MDRD) Af Amer 27 L Est GFR (MDRD) Non-Af 22 L BUN/Creatinine Ratio 16.1 Glucose 97 Calcium 9.5 POC Glucose 225 H Microbiology: Microbiology 08/19/20 14:49 Mucosa - Nose SARS-CoV-2 Antigen (Rapid) - Final Radiography Diagnostic Testing: Radiology Impression Echocardiogram 08/19/20 18:10 Interpretation Summary Normal LV size. The estimated ejection fraction is 45 %. There is mild global hypokinesis of the left ventricle. Stage 2 diastolic dysfunction. Pulmonary artery systolic pressure is 60 mmHg. Moderate pulmonary hypertension. Contrast injection was performed. Compared to previous study, the left ventricular systolic function is the same.. Ordering Physician: Ritika Pereyra Referring Physician: DARLENE BEKC Performed By: Yolanda Chowdary, NICHOLAS, RVT D/C Instructions Discharge Diet: 1800 Calorie Control Diet Discharge Activity: Return to Normal Activity Call your doctor if you observe: Fever of 101 or Higher, Shortness of breath, Fainting spells and Chest pain Meaningful Use Info Meaningful Use Diagnoses (Choose all that apply): CHF CHF CODY/ARB ordered at discharge?: No Reason CODY/ARB not ordered?: Worsening renal disease Documented LVEF (%): 45 Discharge Plan Admission Admit Date/Time: 08/19/20 18:11 Primary Reason for Your Visit: Contrast-induced nephropathy, congestive heart failure Attending Provider: Patricio Garcias Primary Care Provider: Darlene Beck Consulting Providers: Tammie Weldon Discharge Orders/Prescriptions Prescriptions: Continued lorazepam 0.5 mg tablet 0.5 mg PO 4X/DAY PRN (Reason: Anxiety) 10 Days Qty: 20 RF: 0 furosemide 40 mg tablet 40 mg PO BID Qty: 180 RF: 3 omeprazole 40 MG capsule 40 mg PO DAILY RF: 0 albuterol sulfate 2.5 MG/3 ML solution for nebulization 2.5 mg INHALATION Q6H PRN PRN (Reason: Sob &/Or Wheezing) RF: 0 insulin regular human 100 UNIT/ML solution 45 unit SQ BID RF: 0 calcitriol 0.25 MCG capsule 0.5 mcg PO DAILY RF: 0 allopurinol 100 MG tablet 200 mg PO DAILY RF: 0 insulin NPH isoph U-100 human 100 UNITS/ML insulin pen 50 units subcut BID RF: 0 Oxygen, Home [Home Oxygen] 3 lpm NASAL DAILY RF: 0 nitroglycerin 0.4 MG tablet 0.4 mg sublingual Q5M PRN (Reason: Cardiac/Chest Pain) Qty: 1 RF: 0 metoprolol tartrate 25 mg tablet 50 mg PO BID RF: 0 gabapentin 100 MG capsule 100 mg PO BID RF: 0 cephalexin 500 mg Capsule 500 mg PO Q8H RF: 0 benzonatate 100 mg Capsule 100 mg PO Q6H PRN PRN (Reason: Cough) RF: 0 docusate sodium [Dulcolax Stool Softener (dss)] 100 mg Capsule 100 mg PO DAILY PRN (Reason: Constipation) RF: 0 baclofen 5 mg Tablet 5 mg PO 4X/DAY PRN PRN (Reason: muscle spasms) RF: 0 clotrimazole-betameth dip-zinc 1 applic transdermal BID RF: 0 metronidazole 1 applic RF: 0 amlodipine 2.5 mg Tablet 2.5 mg PO DAILY RF: 0 aspirin 81 mg PO/SL DAILY RF: 0 spironolactone 25 mg tablet 25 mg PO DAILY Qty: 90 RF: 6 levalbuterol HCl 0.63 mg/3 mL solution for nebulization 0.63 mg INHALATION ONCE Qty: 90 RF: 6 clopidogrel 75 mg tablet 75 mg PO DAILY Qty: 90 RF: 3 budesonide 0.25 mg/2 mL suspension for nebulization 0.25 mg INHALATION BID Qty: 120 RF: 6 rosuvastatin 5 mg tablet 5 mg PO QHS Qty: 90 RF: 3 Referrals / Follow Up: Darlene Beck MD [Primary Care Provider] - In 1 Week Tammie Weldon MD [STAFF PHYSICIAN] - In 1 Week Disposition Disposition (needs filled in before D/C Order can be placed): Home, self care Charges/Coding Visit Charges Inpatient E&M: 21883 Disch Hosp
--- NOTE | 2020-08-21 15:30 | PCM.PN.REN ---
Subjective Subjective Patient denied worsening breathing, no nausea no vomiting Objective Data Objective Data Vital Signs: Vital Signs Temp Pulse Resp BP Pulse Ox 97.4 F L 67 18 130/44 H 98 08/21/20 14:45 08/21/20 14:45 08/21/20 14:45 08/21/20 14:45 08/21/20 14:45 Oxygen Flow Rate (L/min) 4 Oxygen Delivery Method Nasal Cannula Weight: 91.6 kg Body Mass Index (BMI) 35.6 Intake & Output: Intake and Output for Last 24 Hours 08/19/20 08/20/20 08/21/20 23:59 23:59 23:59 Intake Total 120 / 120 1000 / 1000 240 / 240 Output Total 300 / 300 700 / 700 Balance -180 / -180 300 / 300 240 / 240 Lab / Micro Data Result Diagrams: 08/21/20 09:25 08/21/20 09:25 Labs: Laboratory Results - last 24 hr 08/20/20 08/20/20 08/21/20 16:47 21:03 08:40 WBC RBC Hgb Hct MCV MCH MCHC RDW Std Deviation RDW Coeff of Lea Plt Count MPV Sodium Potassium Chloride Carbon Dioxide Anion Gap BUN Creatinine Estim Creat Clear Calc Est GFR (MDRD) Af Amer Est GFR (MDRD) Non-Af BUN/Creatinine Ratio Glucose Calcium POC Glucose 169 H 168 H 76 08/21/20 08/21/20 08/21/20 09:25 09:25 11:33 WBC 9.5 RBC 3.73 L Hgb 10.5 L Hct 34.8 L MCV 93.3 MCH 28.2 MCHC 30.2 L RDW Std Deviation 47.8 H RDW Coeff of Lea 14.2 Plt Count 193 MPV 10.8 Sodium 140 Potassium 4.6 Chloride 101 Carbon Dioxide 35.0 H Anion Gap 4 L BUN 36 H Creatinine 2.24 H Estim Creat Clear Calc 16.85 Est GFR (MDRD) Af Amer 27 L Est GFR (MDRD) Non-Af 22 L BUN/Creatinine Ratio 16.1 Glucose 97 Calcium 9.5 POC Glucose 225 H Micro: Microbiology 08/19/20 14:49 Mucosa - Nose SARS-CoV-2 Antigen (Rapid) - Final Physical Exam Const alert and oriented x3 General Appearance: cooperative HEENT normocephalic Eyes PERRL and EOMs intact bilaterally Neck supple and no JVD Lymph Lymphatic: no lymphadenopathy noted Resp normal air movement Auscultation: other decreased BS over both lungs bases Cardio regular rate, regular rhythm and S1 normal heart sound Rate: regular rate GI normal to inspection, nondistended, normoactive bowel sounds, soft to palpation, non-tender and non-distended Extremity Extremity Narrative: +1 edema of LE Psych Attitude: calm Activity / Motor Behavior: appropriate eye contact Speech: normal speech Assessment & Plan Assessment/Plan (1) ESTEBAN (acute kidney injury): (2) Stage 3b chronic kidney disease: (3) Hypertension: (4) Combined systolic and diastolic congestive heart failure: QUALIFIERS: Heart failure chronicity: chronic Qualified Code(s): I50.42 - Chronic combined systolic (congestive) and diastolic (congestive) heart failure (5) Acute and chronic respiratory failure with hypoxia: PLAN: Plan: Baseline Cr ~ 1.6 mgdl UA is bening. ESTEBAN is likely from contrast exposure Creatinine peaked at 2.7 mg deciliter. Creatinine better at 2.2 mg deciliter this morning. Patient did not need any replacement therapy Okay to discharge patient home with Lasix 40 mg once daily. Okay with Aldactone at current dose Discussed with Dr. Aragon. We will arrange for office follow-up in 2 to 3 weeks after discharge. Please check renal function panel today after discharge Call if any question
--- NOTE | 2020-08-21 16:00 | CASEMGMT ---
Pt now to be discharged. Walking pulse ox to be completed on 3L nc and script/instructions left with josef Matamoros RN, in case pt qualifies for increased home oxygen. Pt states would like to wait on completing AD's and take time to look over paperwork. Pt states no further concerns/needs. SStsarai ARAIZA CM
[2020-08-21 20:29] LABS: Eosinophil Ct. Urine No Eosinophils Seen % (.)
--- NOTE | 2020-08-22 10:53 | NURSING ---
FAROOQ DC F/u Call: DC Date: 08/21/20 DC Diagnosis: (1) Acute and chronic respiratory failure with hypoxia (2) Combined congestive systolic and diastolic heart failure (3) ESTEBAN (acute kidney injury) (4) CKD (chronic kidney disease) stage 3, GFR 30-59 ml/min (5) Diabetes mellitus, type II (6) Obesity (BMI 30-39.9) (7) H/O coronary artery bypass surgery DC Disposition: Home Lace/Strata: 01/09 Called patient listed home number, answered by her Don. Introduced self and role. states that patient is sleeping ,right now and is doing okay. Denies any questions, issues or concerns with ACI, medications or F/u. S.FAROOQ Fajardo
== END 2020-08-21 16:33 | disposition home or self-care (01) | DRG 291 ==
LOC: ED 15:57 → PCU 16:26
PROVIDERS: Internal Medicine Nephrology; Admitting Provider Internal Medicine; Emergency Provider Emergency Medicine; PCP Family Medicine; Visit Provider Internal Medicine
DX: I13.0 Hypertensive heart and chronic kidney disease with heart failure and stage 1 through stage 4 chronic kidney disease, or unspecified chronic kidney disease (principal); J96.21 Acute and chronic respiratory failure with hypoxia; I50.43 Acute on chronic combined systolic (congestive) and diastolic (congestive) heart failure; N18.4 Chronic kidney disease, stage 4 (severe); I25.810 Atherosclerosis of coronary artery bypass graft(s) without angina pectoris; N17.9 Acute kidney failure, unspecified; N39.0 Urinary tract infection, site not specified; E66.9 Obesity, unspecified; E11.22 Type 2 diabetes mellitus with diabetic chronic kidney disease; E78.5 Hyperlipidemia, unspecified; J45.909 Unspecified asthma, uncomplicated; K21.9 Gastro-esophageal reflux disease without esophagitis; I27.21 Secondary pulmonary arterial hypertension; G47.33 Obstructive sleep apnea (adult) (pediatric); I25.5 Ischemic cardiomyopathy; E11.65 Type 2 diabetes mellitus with hyperglycemia; E03.9 Hypothyroidism, unspecified; M06.9 Rheumatoid arthritis, unspecified; D63.8 Anemia in other chronic diseases classified elsewhere; E11.40 Type 2 diabetes mellitus with diabetic neuropathy, unspecified; F41.9 Anxiety disorder, unspecified; M10.9 Gout, unspecified; Z68.35 Body mass index [BMI] 35.0-35.9, adult; I25.2 Old myocardial infarction; Z79.4 Long term (current) use of insulin; Z79.899 Other long term (current) drug therapy; Z79.02 Long term (current) use of antithrombotics/antiplatelets; Z79.82 Long term (current) use of aspirin; Z99.81 Dependence on supplemental oxygen
CPT/HCPCS: 36415; 71045; 71250; 71275; 76770; 80048; 80053; 81001; 82570; 82962; 83605; 83735; 83880; 84100; 84300; 84484; 84540; 85025; 85027; 87205; 87426; 93005; 93306; 94640; 96374; 97162; 97166; 97530; 97802; 99251; 99283; 99285; Q9957; Q9967; A4216; C8929; G0463; J1940; J3490

== ENCOUNTER → 2020-08-27 09:53 | Outpatient (CLI) | payer MEDICARE, OTHER, SELFPAY ==
[2020-08-19 17:20] VITALS: BMI 35.6
[2020-08-27 12:26] LABS: Absolute Lymphocyte Count 1.69 X10^3/uL (0.83-4.51); Absolute Neutrophil Count 5.9 X10^3/uL (2.0-7.7); Basophil# 0.07 X10^3/uL; Basophil% 0.8 % (0-1); Eosinophil# 0.25 X10^3/uL; Eosinophils% 2.9 % (0-5); Hematocrit 36.4 % (37-47); Hemoglobin 11.3 g/dL (12.0-15.0); Lymphocyte # 1.69 X10^3/ul (0.83-4.51); Lymphocyte % 19.4 % (19-41); Mean Corpuscular Volume 93.3 fL (81-99); Mean Platelet Vol. 11.5 fl (6.2-12.0); Monocyte# 0.75 X10^3/uL; Monocyte% 8.6 % (0-10); NRBC Flagged by Analyzer 0 % (0-5); Neutrophil # 5.86 X10^3/uL (2.7-7.7); Neutrophil % 67.4 % (47-70); Platelet Count 234 K/mm3 (150-450); RBC Distribution Width CV 14.4 % (11.6-14.6); RBC Distribution Width SD 48.4 fl (35.1-43.9); White Blood Count 8.7 K/mm3 (4.4-11.0)
[2020-08-27 12:30] LABS: Protein, Urine (Random) 14.2 mg/dL (<11.9); Protein:Creat Ratio 135 mg/g CRE (0-200)
[2020-08-27 12:40] LABS: PTHIN 164.7 pg/mL (18.4-80.1)
[2020-08-27 12:43] LABS: Albumin, Serum 3.2 g/dL (3.2-5.0); BUN 30 mg/dL (7-18); BUN/Creat Ratio 15.5 RATIO (10-20); Calcium,Total 9.3 mg/dL (8.5-10.1); Chloride 101 mmol/L (98-107); Creatinine, Serum 1.94 mg/dL (0.55-1.02); EST Glomerular Filtration Rate 26 mL/min (>60); Est Glom Filt Rate - Afr Amer 32 mL/min (>60); Ferritin 146 ng/mL (8-252); Glucose 65 mg/dL (74-106); Iron 56 ug/dL (50-170); Iron Binding Capacity,Total 317 ug/dL (250-450); PERCENT IRON SATURATION 17.7 % (15.0-55.0); Phosphorus 3.7 mg/dL (2.5-4.9); Potassium 4.1 mmol/L (3.5-5.1); Sodium Level 142 mmol/L (136-145); Uric Acid 4.9 mg/dL (2.6-6.0)
== END ==
PROVIDERS: PCP Family Medicine; Referring Provider Internal Medicine Nephrology; Visit Provider Internal Medicine Nephrology
DX: I12.9 Hypertensive chronic kidney disease with stage 1 through stage 4 chronic kidney disease, or unspecified chronic kidney disease (principal); N18.31 Chronic kidney disease, stage 3a; D63.1 Anemia in chronic kidney disease
CPT/HCPCS: 36415; 80069; 82570; 82728; 83540; 83550; 83970; 84156; 84550; 85025

== ENCOUNTER → 2020-08-28 13:57 | Outpatient (CLI) | payer MEDICARE, OTHER, SELFPAY ==
[2020-08-19 17:20] VITALS: BMI 35.6
== END ==
PROVIDERS: PCP Family Medicine; Referring Provider Nurse Practitioner Family; Visit Provider Nurse Practitioner Family
DX: R00.1 Bradycardia, unspecified (principal); R55 Syncope and collapse
CPT/HCPCS: 93225; 93226

== ENCOUNTER → 2020-09-28 20:00 | Outpatient (CLI) | payer MEDICARE, OTHER, SELFPAY ==
[2020-09-03 07:54] VITALS: BMI 35.4
== END ==
PROVIDERS: PCP Family Medicine; Referring Provider Nurse Practitioner Acute Care; Visit Provider Nurse Practitioner Acute Care
DX: G47.33 Obstructive sleep apnea (adult) (pediatric) (principal)
CPT/HCPCS: 95811

== ENCOUNTER → 2020-10-26 11:01 | Outpatient (CLI) | payer MEDICARE, OTHER, SELFPAY ==
[2020-10-26 12:00] LABS: Hematocrit 40.4 % (37-47); Hemoglobin 12.5 g/dL (12.0-15.0); Mean Corp Hgb Conc 30.9 g/dL (32-36); Mean Corpuscular Hgb 28.3 pg (27.0-32.0); Mean Corpuscular Volume 91.6 fL (81-99); Mean Platelet Vol. 10.9 fl (6.2-12.0); Platelet Count 206 K/mm3 (150-450); RBC Distribution Width CV 13.8 % (11.6-14.6); RBC Distribution Width SD 46.3 fl (35.1-43.9); Red Blood Count 4.41 M/mm3 (4.2-5.4); White Blood Count 7.6 K/mm3 (4.4-11.0)
[2020-10-26 12:34] LABS: ALB/GLOB Ratio 0.7 RATIO (0.9-2.4); AST(SGOT) 24 U/L (15-37); Alanine Aminotransfer ALT/SGPT 24 U/L (13-56); Albumin, Serum 3.2 g/dL (3.2-5.0); Alkaline Phosphatase 86 U/L (45-117); Anion Gap 4 (5-15); BUN 28 mg/dL (7-18); BUN/Creat Ratio 17.7 RATIO (10-20); Calcium,Total 9.6 mg/dL (8.5-10.1); Chloride 97 mmol/L (98-107); Cholesterol 119 mg/dL (200); Creatinine, Serum 1.58 mg/dL (0.55-1.02); EST Glomerular Filtration Rate 34 mL/min (>60); Est Glom Filt Rate - Afr Amer 41 mL/min (>60); Globulin 4.8 g/dL (2.2-4.2); Glucose 271 mg/dL (74-106); High Density Lipoprotein 44 mg/dL; Microalbumin:Creatinine Ratio 171.2 mg/g CRE (<30 mg/g CRE); Potassium 4.5 mmol/L (3.5-5.1); Sodium Level 136 mmol/L (136-145); T4 Free Direct 1.13 ng/dL (0.76-1.46); Thyroid Stim Hormone (TSH) 1.84 uIU/mL (0.358-3.74); Triglycerides 155 mg/dL; Very Low Density Lipoprotein 31 mg/dL (5-40)
== END ==
PROVIDERS: PCP Family Medicine; Referring Provider Internal Medicine; Visit Provider Internal Medicine
DX: E11.9 Type 2 diabetes mellitus without complications (principal); Z79.4 Long term (current) use of insulin
CPT/HCPCS: 36415; 80053; 80061; 82043; 82570; 83036; 84439; 84443; 85027

== ENCOUNTER 2020-12-10 22:53 | Emergency (ER) | payer MEDICARE, OTHER, SELFPAY ==
[2020-12-10 22:54] VITALS: BP 145/106; PULSE 36; RESP 18; TEMP 36.4; O2SAT 100; BMI 34.9
[2020-12-10 23:07] VITALS: BP 150/82; PULSE 83; RESP 24; O2SAT 100
--- NOTE | 2020-12-10 23:20 | EKG12_ITS ---
Test Reason : DYSRHYTHMIA Blood Pressure : / mmHG Vent. Rate : 080 BPM Atrial Rate : 080 BPM P-R Int : 230 ms QRS Dur : 128 ms QT Int : 412 ms P-R-T Axes : 084 -20 106 degrees QTc Int : 475 ms Sinus rhythm with 1st degree A-V block with frequent and consecutive Premature ventricular complexes Non-specific intra-ventricular conduction block T wave abnormality, consider lateral ischemia Abnormal ECG Confirmed by RENETTA CURRY, ROSSY ([id number]), newspaper copy editor LALA KENNEDY ([id number]) on 12/11/2020 8:42:14 AM Referred By: SHANNON Confirmed By:ROSSY JACKSON MD
--- NOTE | 2020-12-10 23:20 | RAD_ITS ---
EXAM: XR Chest, 1 View CLINICAL INDICATION: 80 years old, Female; sob TECHNIQUE: Frontal view of the chest. This report was created using [employer] report generation technology. COMPARISON: Chest x-ray dated 08/19/2020 FINDINGS: Lungs and pleural spaces: Infiltrates or scarring in the lung bases, unchanged. No pneumothorax. No effusion. Heart: Unremarkable. Cardiac silhouette not enlarged. Mediastinum: Central airways and mediastinal contour are unremarkable. Bones/joints: Median sternotomy. Soft tissues: Unremarkable. RAD/Chest 1 View (Portable) IMPRESSION: Infiltrates or scarring in the lung bases, unchanged. ASSESSMENT: ABNORMAL report - There are abnormal findings in this report which may be related or unrelated to the reason for the exam. Electronically Signed: Elie Still MD at 0:35 EDT Tel , Service support ,
[2020-12-10 23:26] VITALS: PULSE 73; RESP 20
[2020-12-10] MEDS: Ipratropium/Albuterol Sulfate 3 ML AMPUL.NEB INHALATION (23:26)
[2020-12-10 23:42] LABS: Absolute Lymphocyte Count 1.82 X10^3/uL (0.83-4.51); Absolute Neutrophil Count 6.8 X10^3/uL (2.0-7.7); Basophil# 0.04 X10^3/uL; Basophil% 0.4 % (0-1); Eosinophil# 0.17 X10^3/uL; Eosinophils% 1.8 % (0-5); Hematocrit 39.7 % (37-47); Hemoglobin 12.2 g/dL (12.0-15.0); Lymphocyte # 1.82 X10^3/ul (0.83-4.51); Lymphocyte % 19.3 % (19-41); Mean Corp Hgb Conc 30.7 g/dL (32-36); Mean Corpuscular Hgb 28.5 pg (27.0-32.0); Mean Corpuscular Volume 92.8 fL (81-99); Mean Platelet Vol. 11.6 fl (6.2-12.0); Monocyte# 0.62 X10^3/uL; Monocyte% 6.6 % (0-10); NRBC Flagged by Analyzer 0 % (0-5); Neutrophil # 6.75 X10^3/uL (2.7-7.7); Neutrophil % 71.5 % (47-70); POSITIVE COUNT YES; Platelet Count 172 K/mm3 (150-450); RBC Distribution Width SD 47.2 fl (35.1-43.9); Red Blood Count 4.28 M/mm3 (4.2-5.4); White Blood Count 9.4 K/mm3 (4.4-11.0)
[2020-12-10 23:44] LABS: Differential Indicated SCAN CRITERIA MET
[2020-12-11 00:03] LABS: Anion Gap 3 (5-15); BUN 36 mg/dL (7-18); BUN/Creat Ratio 21.8 RATIO (10-20); Calcium,Total 9.7 mg/dL (8.5-10.1); Chloride 103 mmol/L (98-107); Creatinine, Serum 1.65 mg/dL (0.55-1.02); EST Glomerular Filtration Rate 32 mL/min (>60); Est Glom Filt Rate - Afr Amer 39 mL/min (>60); Estimated Creatinine Clearance 22.87 ml/min; Glucose 105 mg/dL (74-106); Potassium 4.6 mmol/L (3.5-5.1); Sodium Level 140 mmol/L (136-145); Troponin-I HS 27 pg/mL (3.0-54.0)
--- NOTE | 2020-12-11 00:08 | ED.VIS.DYS ---
HPI History of Present Illness Chief Complaint: Shortness of Breath Informant: patient Narrative Narrative: 4-day history worsening dyspnea with exertion. Mild cough. No chest pains. History of asthma CHF chronic 4 L of oxygen. Reports on 5 L on her CPAP at night. History of sleep apnea. Denies COPD. History of chronic kidney disease. States for the past 4 days more short of breath than normal. Denies fever headache loss of taste or smell. She is reports Covid vaccinated. Denies vomiting or diarrhea. Denies any leg swelling. States she is on 2 diuretics. Denies orthopnea however states she just sleeps on her side and never on her back. Prior similar symptoms: Yes [facility] Medical History Acute and chronic respiratory failure with hypoxia Acute diastolic CHF (congestive heart failure) Asthma Atherosclerosis 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 angina pectoris Benign essential hypertension Chronic renal failure, stage 4 (severe) Diabetes mellitus, type II Dyslipidemia GERD (gastroesophageal reflux disease) Hypothyroidism IBS (irritable bowel syndrome) Ischemic cardiomyopathy Obesity (BMI 30-39.9) Obstructive sleep apnea ALYCE (obstructive sleep apnea) Rheumatoid arthritis Secondary pulmonary arterial hypertension TIA (transient ischemic attack) Type 2 diabetes mellitus Home Medications omeprazole 40 mg PO DAILY 08/23/13 [History Last Taken 11/10/18] insulin regular human 41 unit SQ BID 05/10/17 [History Last Taken 11/10/18] calcitriol 0.5 mcg PO DAILY 05/17/17 [History Last Taken 11/10/18] allopurinol 200 mg PO DAILY 03/10/18 [History Last Taken 11/10/18] insulin NPH isoph U-100 human 46 units SUBCUT BID 03/10/18 [History Last Taken 11/10/18] nitroglycerin 0.4 mg SUBLINGUAL Q5M PRN #1 bottle 03/13/18 [Rx Last Taken Unknown] lorazepam 0.5 mg tablet 0.5 mg PO 4X/DAY PRN 10 Days #20 tab 08/10/18 [History Last Taken Unknown] gabapentin 200 mg PO QHS 02/13/19 [History Last Taken Unknown] spironolactone 25 mg tablet 25 mg PO DAILY #90 tab 07/29/19 [Rx Last Taken Unknown] rosuvastatin 5 mg tablet 5 mg PO QHS #90 tab 07/18/20 [Rx Last Taken Unknown] benzonatate 100 mg PO Q6H PRN PRN 08/16/20 [History Last Taken Unknown] metoprolol tartrate 25 mg tablet 12.5 mg PO BID #30 tab 08/31/20 [Rx Last Taken Unknown] aspirin 81 mg tablet,delayed release 81 mg PO DAILY 09/07/20 [History Last Taken Unknown] furosemide 40 mg tablet 40 mg PO DAILY #90 tab 10/09/20 [Rx Last Taken Unknown] budesonide 0.25 mg/2 mL suspension for nebulization 0.25 mg INHALATION BID #120 ml 12/03/20 [Rx Last Taken Unknown] levalbuterol HCl 0.63 mg/3 mL solution for nebulization 0.63 mg INHALATION ONCE #90 ml 12/03/20 [Rx Last Taken Unknown] clopidogrel 75 mg tablet 75 mg PO DAILY #90 tab 12/10/20 [Rx Last Taken Unknown] prednisone 40 mg PO DAILY #8 tab 12/11/20 [Rx Last Taken Unknown] Allergy/AdvReac Type Severity Reaction Status Date / Time simvastatin [From Zocor] Allergy Unknown Verified 09/07/20 09:04 lisinopril AdvReac Severe cough Verified 09/07/20 09:04 oxycodone [From Percocet] AdvReac Severe Bad Dreams Verified 09/07/20 09:04 acetaminophen [From Vicodin] AdvReac Vomiting Verified 09/07/20 09:04 hydrocodone bitartrate AdvReac Vomiting Verified 09/07/20 09:04 [From Vicodin] AMMONIUM LACTATE Allergy Rash Uncoded 09/07/20 09:04 Family History Mother CAD (coronary artery disease) Daughter CAD (coronary artery disease) Abdominal aortic aneurysm (AAA) Surgical History H/O coronary artery bypass surgery (2000) History of section History of cholecystectomy History of coronary artery stent placement (03/12/18) History of coronary artery stent placement Hx of appendectomy Hx of CABG Social History household members: family Smoking Status: Never smoker alcohol intake: never substance use type: does not use ROS ROS ED Constitutional Constitutional ED: Denies chills, fever(s) or sweats Eyes Eyes: Denies change in vision ENT ENT ED: Denies dysphagia or sore throat Cardiovascular Cardiovascular: Denies chest pain, leg edema, palpitations or racing heartbeat Respiratory/Chest Respiratory/Chest: Reports cough, dyspnea and dyspnea on exertion Gastrointestinal Gastrointestinal: Denies abdominal pain, diarrhea, nausea or vomiting Genitourinary Genitourinary ED: Denies dysuria, hematuria or urinary frequency Musculoskeletal Musculoskeletal: Denies back pain, extremity pain or neck pain Integumentary Denies rash or wounds Neurologic Neurologic: Denies headache(s), paresthesias or weakness EXAM Physical Exam Const Vital Signs: 12/10/20 22:54 12/10/20 23:07 12/10/20 23:26 Temperature 97.6 F L Temperature Source Temporal Pulse Rate 36 L 83 73 Respiratory Rate 18 24 H 20 H Respiratory Effort Short of Breath Labored Accessory Muscle Use Respiratory Pattern Tachypnea Normal Blood Pressure 145/106 H 150/82 H Blood Pressure Mean 119 104 Pulse Ox 100 100 Oxygen Delivery Method Nasal Cannula Nasal Cannula Oxygen Flow Rate (L/min) 4 5 12/11/20 00:54 Temperature 96.5 F L Temperature Source Temporal Pulse Rate 65 Respiratory Rate 22 H Respiratory Effort Respiratory Pattern Blood Pressure 128/75 H Blood Pressure Mean 92 Pulse Ox 98 Oxygen Delivery Method Nasal Cannula Oxygen Flow Rate (L/min) 4 Positive well nourished and well developed Constitutional Narrative: Currently on 4 L of oxygen during my eval, however speaking short sentences. General Appearance ED: well developed HEENT Reports moist mucous membranes normocephalic and atraumatic Eyes PERRL, EOMs intact bilaterally and conjunctivae normal General Eye ED: Yes normal appearance of both eyes Neck no lymphadenopathy and supple General: Negative for tenderness Chest Wall Chest: Negative for tenderness Resp normal air movement Effort and Inspection: symmetric chest movement; Negative for respiratory distress Auscultation: diminished lung sounds Cardio regular rate, regular rhythm and no murmurs Peripheral Pulses: pulses 2+ throughout GI normal to inspection, nondistended, normoactive bowel sounds and non-tender Palpation: Negative for guarding or rebound tenderness present Back/Spine no CVA tenderness and no thoracic nor lumbar tenderness Extremity normal to inspection General Extremety ED: Negative for edema or tenderness General Extremity: Negative for edema Neuro oriented x3 and no sensory deficits noted Sensorium / Orientation: awake and alert Skin no rashes or lesions noted and no wounds MDM MDM MDM Narrative Medical decision making narrative: Patient EKG nonspecific findings with PVCs. Initially speaking in mild short sentences diminished breath sounds. Aerosol treatments given with improvement of symptoms. Chest x-ray reviewed by myself noted scarring right lower lobe with similar chest x-ray from August of this year. Per radiology report scarring versus infiltrate. She has a nonproductive cough. Her white count is 9.4. Lower suspicion for pneumonia. Creatinine 1.65 baseline creatinine is 1.5-1.7 from records. Troponin negative. Lactic acid normal. BNP is 402. She has no leg swelling. No pleural effusion. Clinically feeling better speaking in full sentences. She was ambulated on her 4 L of oxygen was 98 to 99%. With her asthma history we will start steroids. Her glucose was 105 in the lab. 5-day burst. She has an inhalers and nebulizer at home. Covid testing negative. Patient be discharged home with return precautions. All questions were answered. Lab Data Attestation: I reviewed the patient's lab results. Labs: Laboratory Results - last 24 hr 12/10/20 12/10/20 12/10/20 23:30 23:30 23:30 WBC 9.4 RBC 4.28 Hgb 12.2 Hct 39.7 MCV 92.8 MCH 28.5 MCHC 30.7 L RDW Std Deviation 47.2 H RDW Coeff of [place] 14.0 Plt Count 172 MPV 11.6 Immature Gran % (Auto) 0.400 Neut % (Auto) 71.5 H Lymph % (Auto) 19.3 [place] % (Auto) 6.6 Eos % (Auto) 1.8 Baso % (Auto) 0.4 Absolute Neuts (auto) 6.8 Absolute Lymphs (auto) 1.82 Nucleated RBC % 0 Differential Comment SCANNED Sodium 140 Potassium 4.6 Chloride 103 Carbon Dioxide 34.0 H Anion Gap 3 L BUN 36 H Creatinine 1.65 H Estim Creat Clear Calc 22.87 Est GFR (MDRD) Af Amer 39 L Est GFR (MDRD) Non-Af 32 L BUN/Creatinine Ratio 21.8 H Glucose 105 Lactic Acid 1.2 Calcium 9.7 Troponin I High Sens 27 B-Natriuretic Peptide 12/10/20 23:30 WBC RBC Hgb Hct MCV MCH MCHC RDW Std Deviation RDW Coeff of [place] Plt Count MPV Immature Gran % (Auto) Neut % (Auto) Lymph % (Auto) [place] % (Auto) Eos % (Auto) Baso % (Auto) Absolute Neuts (auto) Absolute Lymphs (auto) Nucleated RBC % Differential Comment Sodium Potassium Chloride Carbon Dioxide Anion Gap BUN Creatinine Estim Creat Clear Calc Est GFR (MDRD) Af Amer Est GFR (MDRD) Non-Af BUN/Creatinine Ratio Glucose Lactic Acid Calcium Troponin I High Sens B-Natriuretic Peptide 402.1 H Radiography Chest X-Ray - ED: 1 View, Read by ED Physician and Read by Radiologist Diagnostic Testing: Radiology Impression Chest X-Ray 12/10/20 23:20 IMPRESSION: Infiltrates or scarring in the lung bases, unchanged. ASSESSMENT: ABNORMAL report - There are abnormal findings in this report which may be related or unrelated to the reason for the exam. Electronically Signed: Elie Still MD at 0:35 EDT Tel , Service support , EKG Initial EKG: Attestation: I personally reviewed and interpreted this EKG as follows: Comments: Sinus rate of 80, no ST changes. Isolated T wave inversion in leads aVL. PVCs noted. Discharge Plan Triage Chief Complaint: Shortness of Breath ED Provider: Adrien Kidd Dx/Rx/DC Orders Clinical Impression: Asthma exacerbation, URI (upper respiratory infection), Chronic renal failure, stage 4 (severe) Instructions: ED URI, Viral, No Abx (Adult), Asthma Prescriptions: New prednisone 20 mg tablet 40 mg PO DAILY Qty: 8 RF: 0 No Action lorazepam 0.5 mg tablet 0.5 mg PO 4X/DAY PRN (Reason: Anxiety) 10 Days Qty: 20 RF: 0 aspirin [Adult Low Dose Aspirin] 81 mg tablet,delayed release (DR/EC) 81 mg PO DAILY RF: 0 omeprazole 40 MG capsule 40 mg PO DAILY RF: 0 insulin regular human 100 UNIT/ML solution 41 unit SQ BID RF: 0 calcitriol 0.25 MCG capsule 0.5 mcg PO DAILY RF: 0 allopurinol 100 MG tablet 200 mg PO DAILY RF: 0 insulin NPH isoph U-100 human 100 UNITS/ML insulin pen 46 units subcut BID RF: 0 nitroglycerin 0.4 MG tablet 0.4 mg sublingual Q5M PRN (Reason: Cardiac/Chest Pain) Qty: 1 RF: 0 gabapentin 100 MG capsule 200 mg PO QHS RF: 0 benzonatate 100 mg Capsule 100 mg PO Q6H PRN PRN (Reason: Cough) RF: 0 spironolactone 25 mg tablet 25 mg PO DAILY Qty: 90 RF: 6 rosuvastatin 5 mg tablet 5 mg PO QHS Qty: 90 RF: 3 metoprolol tartrate 25 mg tablet 12.5 mg PO BID Qty: 30 RF: 11 furosemide 40 mg tablet 40 mg PO DAILY Qty: 90 RF: 3 budesonide 0.25 mg/2 mL suspension for nebulization 0.25 mg INHALATION BID Qty: 120 RF: 6 levalbuterol HCl 0.63 mg/3 mL solution for nebulization 0.63 mg INHALATION ONCE Qty: 90 RF: 6 clopidogrel 75 mg tablet 75 mg PO DAILY Qty: 90 RF: 3 Primary Care Provider: Jeffrey Lopez Referrals: Jeffrey Lopez MD [Primary Care Provider] - 3-5 Days Disposition Disposition: Home, Self Care
[2020-12-11 00:10] LABS: Differential Comment SCANNED
[2020-12-11 00:17] LABS: Lactic Acid 1.2 mmol/L (0.4-1.9)
[2020-12-11 00:36] LABS: BNP,B-Type NATRIURETIC PEPTIDE 402.1 pg/mL (0-100)
[2020-12-11 00:54] VITALS: BP 128/75; PULSE 65; RESP 22; TEMP 35.8; O2SAT 98
[2020-12-11 01:19] VITALS: O2SAT 99
[2020-12-11] MEDS: predniSONE 20 MG Tablet 40 MG PO (01:45)
== END 2020-12-11 01:45 | disposition home or self-care (01) ==
PROVIDERS: Emergency Provider Emergency Medicine; PCP Family Medicine
DX: J45.901 Unspecified asthma with (acute) exacerbation (principal); J06.9 Acute upper respiratory infection, unspecified; I13.0 Hypertensive heart and chronic kidney disease with heart failure and stage 1 through stage 4 chronic kidney disease, or unspecified chronic kidney disease; E11.22 Type 2 diabetes mellitus with diabetic chronic kidney disease; I50.31 Acute diastolic (congestive) heart failure; N18.4 Chronic kidney disease, stage 4 (severe); E78.5 Hyperlipidemia, unspecified; G47.33 Obstructive sleep apnea (adult) (pediatric); I25.5 Ischemic cardiomyopathy; I25.810 Atherosclerosis of coronary artery bypass graft(s) without angina pectoris; K21.9 Gastro-esophageal reflux disease without esophagitis; Z79.4 Long term (current) use of insulin; Z79.82 Long term (current) use of aspirin; Z79.899 Other long term (current) drug therapy
CPT/HCPCS: 71045; 80048; 83605; 83880; 84484; 85025; 87040; 87426; 93005; 94640; 99285; A4216

== ENCOUNTER → 2021-01-14 09:02 | Outpatient (CLI) | payer MEDICARE, OTHER, SELFPAY | PROVIDERS: PCP Family Medicine; Referring Provider Physician Assistant Medical; Visit Provider Physician Assistant Medical | DX: R00.1 Bradycardia, unspecified (principal); I11.0 Hypertensive heart disease with heart failure; I50.42 Chronic combined systolic (congestive) and diastolic (congestive) heart failure | CPT/HCPCS: 93225; 93226 ==

== ENCOUNTER → 2021-01-29 09:03 | Outpatient (CLI) | payer MEDICARE, OTHER, SELFPAY ==
[2021-01-29 10:05] LABS: Hematocrit 40.1 % (37-47); Hemoglobin 12.3 g/dL (12.0-15.0); Mean Corp Hgb Conc 30.7 g/dL (32-36); Mean Corpuscular Hgb 28.5 pg (27.0-32.0); Mean Corpuscular Volume 92.8 fL (81-99); Mean Platelet Vol. 11.2 fl (6.2-12.0); Platelet Count 199 K/mm3 (150-450); RBC Distribution Width CV 14.1 % (11.6-14.6); RBC Distribution Width SD 47.8 fl (35.1-43.9); Red Blood Count 4.32 M/mm3 (4.2-5.4); White Blood Count 10.2 K/mm3 (4.4-11.0)
[2021-01-29 10:23] LABS: Hemoglobin A1c 8.5 % (3.8-5.6)
[2021-01-29 10:44] LABS: ALB/GLOB Ratio 0.7 RATIO (0.9-2.4); AST(SGOT) 18 U/L (15-37); Alanine Aminotransfer ALT/SGPT 15 U/L (13-56); Albumin, Serum 3.2 g/dL (3.2-5.0); Alkaline Phosphatase 75 U/L (45-117); Anion Gap 7 (5-15); BUN 36 mg/dL (7-18); BUN/Creat Ratio 21.8 RATIO (10-20); Chloride 100 mmol/L (98-107); Creatinine, Serum 1.65 mg/dL (0.55-1.02); EST Glomerular Filtration Rate 32 mL/min (>60); Est Glom Filt Rate - Afr Amer 39 mL/min (>60); Globulin 4.5 g/dL (2.2-4.2); Glucose 62 mg/dL (74-106); Potassium 4.3 mmol/L (3.5-5.1); Protein, Total 7.7 g/dL (6.4-8.2); Sodium Level 139 mmol/L (136-145); Thyroid Stim Hormone (TSH) 1.81 uIU/mL (0.358-3.74)
== END ==
PROVIDERS: PCP Family Medicine; Referring Provider Internal Medicine; Visit Provider Internal Medicine
DX: E11.9 Type 2 diabetes mellitus without complications (principal)
CPT/HCPCS: 36415; 80053; 83036; 84443; 84550; 85027

== ENCOUNTER → 2021-02-12 09:53 | Outpatient (CLI) | payer MEDICARE, OTHER, SELFPAY ==
[2021-02-12 12:39] LABS: Absolute Lymphocyte Count 2.06 X10^3/uL (0.83-4.51); Absolute Neutrophil Count 7.1 X10^3/uL (2.0-7.7); Basophil# 0.05 X10^3/uL; Basophil% 0.5 % (0-1); Eosinophil# 0.24 X10^3/uL; Eosinophils% 2.3 % (0-5); Hematocrit 37.9 % (37-47); Hemoglobin 11.6 g/dL (12.0-15.0); Lymphocyte # 2.06 X10^3/ul (0.83-4.51); Lymphocyte % 20.2 % (19-41); Mean Corp Hgb Conc 30.6 g/dL (32-36); Mean Corpuscular Hgb 28.4 pg (27.0-32.0); Mean Corpuscular Volume 92.7 fL (81-99); Mean Platelet Vol. 11.3 fl (6.2-12.0); Monocyte% 6.8 % (0-10); NRBC Flagged by Analyzer 0 % (0-5); Neutrophil % 69.5 % (47-70); Platelet Count 200 K/mm3 (150-450); RBC Distribution Width CV 14.1 % (11.6-14.6); Red Blood Count 4.09 M/mm3 (4.2-5.4); White Blood Count 10.2 K/mm3 (4.4-11.0)
[2021-02-12 12:59] LABS: Albumin, Serum 3.2 g/dL (3.2-5.0); BUN 30 mg/dL (7-18); BUN/Creat Ratio 17.2 RATIO (10-20); Calcium,Total 9.7 mg/dL (8.5-10.1); Chloride 98 mmol/L (98-107); Creatinine, Serum 1.74 mg/dL (0.55-1.02); EST Glomerular Filtration Rate 30 mL/min (>60); Est Glom Filt Rate - Afr Amer 36 mL/min (>60); Ferritin 106 ng/mL (8-252); Glucose 77 mg/dL (74-106); Iron 51 ug/dL (50-170); Iron Binding Capacity,Total 328 ug/dL (250-450); PERCENT IRON SATURATION 15.5 % (15.0-55.0); Potassium 4.3 mmol/L (3.5-5.1); Sodium Level 139 mmol/L (136-145); Uric Acid 4.1 mg/dL (2.6-6.0)
[2021-02-12 13:02] LABS: PTHIN 121.7 pg/mL (18.4-80.1)
[2021-02-12 13:16] LABS: Protein, Urine (Random) 12.4 mg/dL (<11.9); Protein:Creat Ratio 448 mg/g CRE (0-200)
== END ==
PROVIDERS: PCP Family Medicine; Referring Provider Internal Medicine Nephrology; Visit Provider Internal Medicine Nephrology
DX: I12.9 Hypertensive chronic kidney disease with stage 1 through stage 4 chronic kidney disease, or unspecified chronic kidney disease (principal); N18.32 Chronic kidney disease, stage 3b; D63.1 Anemia in chronic kidney disease
CPT/HCPCS: 36415; 80069; 82570; 82728; 83540; 83550; 83970; 84156; 84550; 85025

== ENCOUNTER 2021-02-18 12:02 | Emergency (ER) | payer MEDICARE, OTHER, SELFPAY ==
[2021-02-18 12:02] VITALS: BP 153/95; PULSE 59; RESP 19; TEMP 35.7; O2SAT 100; BMI 34.5
[2021-02-18 13:15] LABS: Absolute Lymphocyte Count 1.16 X10^3/uL (0.83-4.51); Absolute Neutrophil Count 7.5 X10^3/uL (2.0-7.7); Basophil# 0.04 X10^3/uL; Basophil% 0.4 % (0-1); Eosinophil# 0.18 X10^3/uL; Eosinophils% 1.9 % (0-5); Hematocrit 38.2 % (37-47); Hemoglobin 11.7 g/dL (12.0-15.0); Lymphocyte # 1.16 X10^3/ul (0.83-4.51); Lymphocyte % 12.3 % (19-41); Mean Corp Hgb Conc 30.6 g/dL (32-36); Mean Corpuscular Hgb 28.5 pg (27.0-32.0); Mean Corpuscular Volume 92.9 fL (81-99); Mean Platelet Vol. 10.6 fl (6.2-12.0); Monocyte# 0.56 X10^3/uL; Monocyte% 5.9 % (0-10); NRBC Flagged by Analyzer 0 % (0-5); Neutrophil # 7.47 X10^3/uL (2.7-7.7); Neutrophil % 79.1 % (47-70); Platelet Count 191 K/mm3 (150-450); RBC Distribution Width CV 13.8 % (11.6-14.6); RBC Distribution Width SD 47.1 fl (35.1-43.9); Red Blood Count 4.11 M/mm3 (4.2-5.4); White Blood Count 9.5 K/mm3 (4.4-11.0)
[2021-02-18 13:27] LABS: Anion Gap 3 (5-15); BUN 33 mg/dL (7-18); BUN/Creat Ratio 17.1 RATIO (10-20); Calcium,Total 9.8 mg/dL (8.5-10.1); Chloride 103 mmol/L (98-107); Creatinine, Serum 1.93 mg/dL (0.55-1.02); EST Glomerular Filtration Rate 27 mL/min (>60); Est Glom Filt Rate - Afr Amer 32 mL/min (>60); Estimated Creatinine Clearance 19.55 ml/min; Glucose 141 mg/dL (74-106); Potassium 4.1 mmol/L (3.5-5.1); Sodium Level 140 mmol/L (136-145)
--- NOTE | 2021-02-18 15:01 | CT_ITS ---
STUDY: CT ABDOMEN AND PELVIS WITHOUT CONTRAST REASON FOR EXAM: Female, 80 years old. Left lower quadrant abdominal pain with rebound tenderness. RADIATION DOSAGE (If Supplied By Facility): CTDIvol = ( 19.14 ) mGy, DLP = ( 1009.03 ) mGycm TECHNIQUE: Transaxial images were obtained from the dome of the diaphragm to the symphysis pubis without oral contrast, and without intravenous contrast. Sagittal and coronal images were reconstructed. Individualized dose optimization techniques were used for this CT. COMPARISON: Comparison is made with prior examination dated 05/18/2015. FINDINGS: Persistent mild linear scarring at the lung bases with a noncalcified 6 mm nodule in the anterior right lower lobe. Coronary artery calcification. Prior CABG. Normal liver. There are surgical clips in the gallbladder fossa consistent with a prior cholecystectomy. There are multiple benign calcified granulomata of the spleen. Normal pancreas. Normal bilateral adrenal glands. Normal right kidney. Normal left kidney. Normal visualized stomach. Normal small intestine. There is diverticulosis, with thickening of the colon wall, and pericolonic inflammation changes consistent with acute diverticulitis. The appendix is visualized and appears normal. There is diffuse atherosclerotic calcification of the abdominal aorta and its major visceral branches, without a demonstrated aneurysm. Normal inferior vena cava. Normal retroperitoneum. There is distention of the urinary bladder. Calcified fibroid uterus. There is a small umbilical hernia containing fat. There are degenerative changes of the visualized lumbar spine. CT/Abdomen/Pelvis without Cont IMPRESSION: Findings suggestive of a mild degree of noncomplicated sigmoid diverticulitis. Electronically Signed: Steve Ferreira MD at 15:46 EST , Service support ,
[2021-02-18 15:13] VITALS: BP 139/69; PULSE 73
--- NOTE | 2021-02-18 15:15 | EDS_ITS ---
HPI HPI - GI History of Present Illness Chief Complaint: Abd Pain Informant: patient and family Abdominal Pain/Flank Pain Onset: Today Timing: Continuous Quality: - (Pain) Location: LLQ Current Severity: Mild Maximum Severity: Severe Worsened by: Car ride and Movement Relieved by: Nothing Nausea/Vomiting/Emesis GI Symptom: Positive for Nausea; Negative for Vomiting Diarrhea/Melena/Hematochezia GI Symptom: Positive for - (Last bowel movement yesterday. Patient is passing gas.); Negative for Diarrhea, Melena and Hematochezia Associated Symptoms Associated Symptoms: Negative for Dysuria, Frequency and Hematuria Narrative Narrative: Patient is a 80-year-old woman with multiple medical problems who presents with left lower quadrant abdominal pain. She does not recall she has history of diverticulosis or diverticulitis. She denies fever, chills night sweats. She does localize the pain to the left lower quadrant. She denies dysuria, frequency, urgency or hematuria. She denies blood or mucus in her stool. She denies fever or chills. She denies headache, visual, ocular auditory symptoms. She denies upper respiratory symptoms. She denies cough or shortness of breath. She denies chest discomfort. She does report nausea without vomiting. There is no history of trauma. She has not noted a rash or any lesions. Prior similar symptoms: No Recent Illness/Hospitalization: No [facility] Medical History Acute and chronic respiratory failure with hypoxia Acute diastolic CHF (congestive heart failure) Asthma Atherosclerosis 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 angina pectoris Benign essential hypertension Chronic renal failure, stage 4 (severe) Diabetes mellitus, type II Dyslipidemia GERD (gastroesophageal reflux disease) Hypothyroidism IBS (irritable bowel syndrome) Ischemic cardiomyopathy Obesity (BMI 30-39.9) Obstructive sleep apnea ALYCE (obstructive sleep apnea) Rheumatoid arthritis Secondary pulmonary arterial hypertension TIA (transient ischemic attack) Type 2 diabetes mellitus Home Medications omeprazole 40 mg PO DAILY 08/23/13 [History Last Taken 11/10/18] insulin regular human 41 unit SQ BID 05/10/17 [History Last Taken 11/10/18] calcitriol 0.5 mcg PO DAILY 05/17/17 [History Last Taken 11/10/18] allopurinol 200 mg PO DAILY 03/10/18 [History Last Taken 11/10/18] insulin NPH isoph U-100 human 46 units SUBCUT BID 03/10/18 [History Last Taken 11/10/18] nitroglycerin 0.4 mg SUBLINGUAL Q5M PRN #1 bottle 03/13/18 [Rx Last Taken Unknown] lorazepam 0.5 mg tablet 0.5 mg PO 4X/DAY PRN 10 Days #20 tab 08/10/18 [History Last Taken Unknown] gabapentin 200 mg PO QHS 02/13/19 [History Last Taken Unknown] rosuvastatin 5 mg tablet 5 mg PO QHS #90 tab 07/18/20 [Rx Last Taken Unknown] benzonatate 100 mg PO Q6H PRN PRN 08/16/20 [History Last Taken Unknown] aspirin 81 mg tablet,delayed release 81 mg PO DAILY 09/07/20 [History Last Taken Unknown] furosemide 40 mg tablet 40 mg PO DAILY #90 tab 10/09/20 [Rx Last Taken Unknown] budesonide 0.25 mg/2 mL suspension for nebulization 0.25 mg INHALATION BID #120 ml 12/03/20 [Rx Last Taken Unknown] clopidogrel 75 mg tablet 75 mg PO DAILY #90 tab 12/10/20 [Rx Last Taken Unknown] levalbuterol HCl 0.63 mg/3 mL solution for nebulization 0.63 mg INHALATION ONCE #90 ml 12/25/20 [Rx Last Taken Unknown] spironolactone 25 mg tablet 25 mg PO DAILY #90 tab 01/11/21 [Rx Last Taken Unknown] metoprolol tartrate 25 mg tablet 25 mg PO BID #60 tab 02/15/21 [Rx Last Taken Unknown] amoxicillin-pot clavulanate 875 mg PO Q12H #20 tablet 02/18/21 [Rx Last Taken Unknown] hydrocodone-acetaminophen 1 tab PO Q6H PRN PRN 3 Days #10 tablet 02/18/21 [Rx Last Taken Unknown] Allergy/AdvReac Type Severity Reaction Status Date / Time simvastatin [From Zocor] Allergy Unknown Verified 02/18/21 12:05 lisinopril AdvReac Severe cough Verified 02/18/21 12:05 oxycodone [From Percocet] AdvReac Severe Bad Dreams Verified 02/18/21 12:05 acetaminophen [From Vicodin] AdvReac Vomiting Verified 02/18/21 12:05 hydrocodone bitartrate AdvReac Vomiting Verified 02/18/21 12:05 [From Vicodin] AMMONIUM LACTATE Allergy Rash Uncoded 02/18/21 12:05 Family History Mother CAD (coronary artery disease) Daughter CAD (coronary artery disease) Abdominal aortic aneurysm (AAA) Surgical History H/O coronary artery bypass surgery (2000) History of section History of cholecystectomy History of coronary artery stent placement (03/12/18) History of coronary artery stent placement Hx of appendectomy Hx of CABG Social History household members: family Smoking Status: Never smoker alcohol intake: never substance use type: does not use ROS ROS ED Constitutional Constitutional ED: Denies chills, fever(s), subjective, sweats or weight loss ENT ENT ED: Denies ear pain, rhinorrhea or sore throat Cardiovascular Cardiovascular: Denies chest pain, orthopnea or palpitations Respiratory/Chest Respiratory/Chest: Denies cough, dyspnea, dyspnea on exertion, orthopnea or sputum Gastrointestinal Gastrointestinal: Reports abdominal pain and nausea; Denies constipation, diarrhea, melena or vomiting Genitourinary Genitourinary ED: Denies dysuria, hematuria or urinary frequency Musculoskeletal Musculoskeletal: Denies arthralgias, back pain, myalgias or neck pain Integumentary Denies rash Neurologic Neurologic: Denies headache(s), paresthesias or weakness Endocrine Endocrinology: Denies polydipsia, polyphagia or polyuria Hematologic/Lymphatic Hematologic/Lymphatic: Reports easy bruising; Denies easy bleeding EXAM Physical Exam Const Vital Signs: 02/18/21 12:02 02/18/21 15:13 Temperature 96.2 F L Temperature Source Temporal Pulse Rate 59 L 73 Respiratory Rate 19 H Blood Pressure 153/95 H 139/69 H Blood Pressure Mean 114 92 Pulse Ox 100 Oxygen Delivery Method Nasal Cannula Oxygen Flow Rate (L/min) 4 Positive well nourished, well developed, obese and unkempt General Appearance ED: unkempt, well developed and other Patient has her hand over her left lower quadrant because of discomfort when I lowered the bed. ; Negative for pallor Nutritional Appearance: obese HEENT Reports TM's clear and dry mucous membranes normocephalic and atraumatic Tympanic Membrane ED: Yes TM's clear Mouth ED: Yes dry mucous membranes Mouth: dry mucous membranes Eyes PERRL and EOMs intact bilaterally General Eye ED: Negative for pale conjunctiva or scleral icterus Neck no lymphadenopathy, supple and no JVD Resp normal respiratory effort and clear to auscultation bilaterally Cardio regular rate, regular rhythm, S1 normal heart sound, S2 normal heart sound and no murmurs GI no masses; Negative for non-tender or non-distended Inspection: abdominal distention Auscultation: hypoactive bowel sounds; Negative for normoactive bowel sounds Palpation: soft, tender LLQ, guarding LLQ and rebound tenderness present other (Left lower quadrant.); Negative for rigid Back/Spine no CVA tenderness Cervical Spine: Negative for cervical spine tenderness Thoracic Spine / Upper Back: Negative for thoracic spinal tenderness Extremity full ROM General Extremety ED: Yes edema; Negative for tenderness General Extremity: edema Neuro CN's II-XII intact bilaterally Sensorium / Orientation: alert and oriented to person Motor Exam: strength 5/5 throughout Psych mental status grossly normal and thought process normal Appearance: unkempt Skin no wounds General Skin Exam: Negative for jaundice or pallor Lesions: no lesions Rashes: no rashes MDM MDM MDM Narrative Medical decision making narrative: Patient presents with left lower quadrant abdominal pain. She has peritoneal findings. Concerned she may have diverticulitis versus other cause. Blood work was initiated by nursing staff per protocol. CBC C was unremarkable. Basic metabolic panel visit elevated CO2. BUN and creatinine are elevated 33 1.93. Creatinine is at her baseline. Since GFR is less than 30 CT with IV contrast was not ordered. Patient was offered pain medicine. She declined. Lab Data Attestation: I reviewed the patient's lab results. Labs: Laboratory Results - last 24 hr 02/18/21 02/18/21 02/18/21 13:05 13:05 14:22 WBC 9.5 RBC 4.11 L Hgb 11.7 L Hct 38.2 MCV 92.9 MCH 28.5 MCHC 30.6 L RDW Std Deviation 47.1 H RDW Coeff of Lea 13.8 Plt Count 191 MPV 10.6 Immature Gran % (Auto) 0.400 Neut % (Auto) 79.1 H Lymph % (Auto) 12.3 L [place] % (Auto) 5.9 Eos % (Auto) 1.9 Baso % (Auto) 0.4 Absolute Neuts (auto) 7.5 Absolute Lymphs (auto) 1.16 Nucleated RBC % 0 Sodium 140 Potassium 4.1 Chloride 103 Carbon Dioxide 34.0 H Anion Gap 3 L BUN 33 H Creatinine 1.93 H Estim Creat Clear Calc 19.55 Est GFR (MDRD) Af Amer 32 L Est GFR (MDRD) Non-Af 27 L BUN/Creatinine Ratio 17.1 Glucose 141 H Calcium 9.8 Urine Color Yellow Urine Clarity Clear Urine pH 6.0 Ur Specific [place] 1.010 Urine Protein Negative Urine Glucose (UA) Normal Urine Ketones Negative Urine Occult Blood Negative Urine Nitrite Negative Urine Bilirubin Negative Urine Urobilinogen Normal Ur Leukocyte Esterase 100 H Urine RBC 0 SEEN Urine WBC 5-10 SEEN Ur Squamous Epith Cells 0-5 SEEN Urine Bacteria RARE Urine Mucus 0 SEEN Radiography Diagnostic Testing: Clinical Impression(s) from Imaging Studies Abdomen/Pelvis CT 02/18/21 15:01 IMPRESSION: Findings suggestive of a mild degree of noncomplicated sigmoid diverticulitis. Electronically Signed: Steve Ferreira MD at 15:46 EST , Service support , Treatment and Re-Evaluation Comments:: Patient was informed of her CAT scan results. She is allergic penicillin. She is discharged with Augmentin and opiate analgesia for pain. Discharge Plan Triage Chief Complaint: Abd Pain ED Provider: Lion Santiago Dx/Rx/DC Orders Clinical Impression: Diverticulitis of sigmoid colon, Diabetes mellitus, type II, CKD (chronic kidney disease) stage 3, GFR 30-59 ml/min Instructions: Discharge Instructions for ..., ED Diverticulitis Prescriptions: New hydrocodone-acetaminophen [hydrocodone-acetaminophen] 1 TABLET tablet 1 tab PO Q6H PRN PRN (Reason: Pain) 3 Days Qty: 10 RF: 0 amoxicillin-pot clavulanate [amoxicillin-pot clavulanate] 875 MG tablet 875 mg PO Q12H Qty: 20 RF: 0 No Action lorazepam 0.5 mg tablet 0.5 mg PO 4X/DAY PRN (Reason: Anxiety) 10 Days Qty: 20 RF: 0 aspirin [Adult Low Dose Aspirin] 81 mg tablet,delayed release (DR/EC) 81 mg PO DAILY RF: 0 omeprazole 40 MG capsule 40 mg PO DAILY RF: 0 insulin regular human 100 UNIT/ML solution 41 unit SQ BID RF: 0 calcitriol 0.25 MCG capsule 0.5 mcg PO DAILY RF: 0 allopurinol 100 MG tablet 200 mg PO DAILY RF: 0 insulin NPH isoph U-100 human 100 UNITS/ML insulin pen 46 units subcut BID RF: 0 nitroglycerin 0.4 MG tablet 0.4 mg sublingual Q5M PRN (Reason: Cardiac/Chest Pain) Qty: 1 RF: 0 gabapentin 100 MG capsule 200 mg PO QHS RF: 0 benzonatate 100 mg Capsule 100 mg PO Q6H PRN PRN (Reason: Cough) RF: 0 rosuvastatin 5 mg tablet 5 mg PO QHS Qty: 90 RF: 3 furosemide 40 mg tablet 40 mg PO DAILY Qty: 90 RF: 3 budesonide 0.25 mg/2 mL suspension for nebulization 0.25 mg INHALATION BID Qty: 120 RF: 6 clopidogrel 75 mg tablet 75 mg PO DAILY Qty: 90 RF: 3 levalbuterol HCl 0.63 mg/3 mL solution for nebulization 0.63 mg INHALATION ONCE Qty: 90 RF: 6 spironolactone 25 mg tablet 25 mg PO DAILY Qty: 90 RF: 3 metoprolol tartrate 25 mg tablet 25 mg PO BID Qty: 60 RF: 11 Primary Care Provider: Jeffrey Lopez Referrals: Jeffrey Lopez MD [Primary Care Provider] - 3-5 Days if not improving Disposition Disposition: Home, Self Care
[2021-02-18 15:22] LABS: Mucous, Urine 0 SEEN /hpf (<or=2+); Red Blood Cells-Urine 0 SEEN /hpf (0-5)
[2021-02-18 15:24] LABS: Color, Urine Yellow (Yellow); Glucose, Dipstick Normal (Normal); Ketone-Dipstick Negative (Negative); Leukocyte Esterase-Dipstick 100 /ul (Negative); Nitrite-Dipstick Negative (Negative); Occult Blood-Urine Negative /ul (Negative); Protein-Dipstick Negative (Negative); Urine Bilirubin Dipstick Negative (Negative); Urine Clarity Clear (Clear); Urine Urobilinogen Normal (Normal)
[2021-02-18 15:40] LABS: Bacteria RARE /hpf (None Seen); Squamous Epithelial Cells - UA 0-5 SEEN /hpf (5-10); White Blood Cells 5-10 SEEN /hpf (0-5)
[2021-02-18] MEDS: Amox/Clavulanate 875 MG Tablet PO (16:17)
== END 2021-02-18 16:27 | disposition home or self-care (01) ==
PROVIDERS: Emergency Provider Emergency Medicine; PCP Family Medicine
DX: K57.32 Diverticulitis of large intestine without perforation or abscess without bleeding (principal); E11.22 Type 2 diabetes mellitus with diabetic chronic kidney disease; N18.30 Chronic kidney disease, stage 3 unspecified; I25.810 Atherosclerosis of coronary artery bypass graft(s) without angina pectoris; E66.9 Obesity, unspecified; G47.33 Obstructive sleep apnea (adult) (pediatric); Z86.73 Personal history of transient ischemic attack (TIA), and cerebral infarction without residual deficits
CPT/HCPCS: 74176; 80048; 81001; 85025; 99284; A4216

== ENCOUNTER 2021-02-20 17:35 | Inpatient (IN) | payer MEDICARE, OTHER, SELFPAY ==
[2021-02-20 17:36] VITALS: BP 156/63; PULSE 90; RESP 18; TEMP 36.8; O2SAT 93; BMI 38.1
[2021-02-20] MEDS: 0.9% Normal Saline 1,000 ML 1000 ML IV (17:57)
[2021-02-20] MEDS: Ondansetron 4 MG/2 ML Vial IV (17:57)
[2021-02-20 18:00] LABS: Absolute Lymphocyte Count 1.04 X10^3/uL (0.83-4.51); Basophil# 0.04 X10^3/uL; Basophil% 0.3 % (0-1); Eosinophil# 0.05 X10^3/uL; Eosinophils% 0.3 % (0-5); Hematocrit 35.5 % (37-47); Hemoglobin 11.1 g/dL (12.0-15.0); Lymphocyte # 1.04 X10^3/ul (0.83-4.51); Lymphocyte % 6.7 % (19-41); Mean Corp Hgb Conc 31.3 g/dL (32-36); Mean Corpuscular Hgb 28.9 pg (27.0-32.0); Mean Corpuscular Volume 92.4 fL (81-99); Mean Platelet Vol. 11.1 fl (6.2-12.0); Monocyte% 7.8 % (0-10); NRBC Flagged by Analyzer 0 % (0-5); Neutrophil # 13.01 X10^3/uL (2.7-7.7); Neutrophil % 84.3 % (47-70); Platelet Count 191 K/mm3 (150-450); RBC Distribution Width CV 13.7 % (11.6-14.6); RBC Distribution Width SD 45.8 fl (35.1-43.9); Red Blood Count 3.84 M/mm3 (4.2-5.4); White Blood Count 15.4 K/mm3 (4.4-11.0)
--- NOTE | 2021-02-20 18:15 | EKG12_ITS ---
Test Reason : NAUSEA Blood Pressure : / mmHG Vent. Rate : 091 BPM Atrial Rate : 119 BPM P-R Int : 240 ms QRS Dur : 128 ms QT Int : 420 ms P-R-T Axes : -45 041 121 degrees QTc Int : 516 ms Undetermined rhythm : Consider Sinus Rhythm with PSVC's and PVC's Non-specific intra-ventricular conduction block Nonspecific T wave abnormality Abnormal ECG Confirmed by RENETTA CURRY, ROSSY ([id number]), senior editor LALA KENNEDY ([id number]) on 02/22/2021 10:39:47 AM Referred By: MAICOL Confirmed By:ROSSY JACKSON MD
--- NOTE | 2021-02-20 18:16 | ED.VIS.GI ---
HPI HPI - GI History of Present Illness Chief Complaint: Nausea/Vomiting Narrative Narrative: 80-year-old female diagnosed with diverticulitis a couple of days ago presenting with nausea and vomiting. She states that she does have a little bit of pain in the left lower quadrant but does not feel it is worse. She states she is not been having significant bowel movements. She has not had a fever but no one has checked for 1. She has decreased p.o. intake over the last couple of days. Patient has been taking her Augmentin. She is also taking [place] for pain. Patient apparently got up to walk across the room and on her way back she felt like she was going to faint and her family states she was limp for a couple of seconds. She did not fall or hit her head. [facility] Medical History Acute and chronic respiratory failure with hypoxia Acute diastolic CHF (congestive heart failure) Asthma Atherosclerosis 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 angina pectoris Benign essential hypertension Chronic renal failure, stage 4 (severe) Diabetes mellitus, type II Dyslipidemia GERD (gastroesophageal reflux disease) Hypothyroidism IBS (irritable bowel syndrome) Ischemic cardiomyopathy Obesity (BMI 30-39.9) Obstructive sleep apnea ALYCE (obstructive sleep apnea) Rheumatoid arthritis Secondary pulmonary arterial hypertension TIA (transient ischemic attack) Type 2 diabetes mellitus Home Medications omeprazole 40 mg PO DAILY 08/23/13 [History Last Taken 11/10/18] insulin regular human 41 unit SQ BID 05/10/17 [History Last Taken 11/10/18] calcitriol 0.5 mcg PO DAILY 05/17/17 [History Last Taken 11/10/18] allopurinol 200 mg PO DAILY 03/10/18 [History Last Taken 11/10/18] insulin NPH isoph U-100 human 46 units SUBCUT BID 03/10/18 [History Last Taken 11/10/18] nitroglycerin 0.4 mg SUBLINGUAL Q5M PRN #1 bottle 03/13/18 [Rx Last Taken Unknown] lorazepam 0.5 mg tablet 0.5 mg PO 4X/DAY PRN 10 Days #20 tab 08/10/18 [History Last Taken Unknown] gabapentin 200 mg PO QHS 02/13/19 [History Last Taken Unknown] rosuvastatin 5 mg tablet 5 mg PO QHS #90 tab 07/18/20 [Rx Last Taken Unknown] benzonatate 100 mg PO Q6H PRN PRN 08/16/20 [History Last Taken Unknown] aspirin 81 mg tablet,delayed release 81 mg PO DAILY 09/07/20 [History Last Taken Unknown] furosemide 40 mg tablet 40 mg PO DAILY #90 tab 10/09/20 [Rx Last Taken Unknown] budesonide 0.25 mg/2 mL suspension for nebulization 0.25 mg INHALATION BID #120 ml 12/03/20 [Rx Last Taken Unknown] clopidogrel 75 mg tablet 75 mg PO DAILY #90 tab 12/10/20 [Rx Last Taken Unknown] levalbuterol HCl 0.63 mg/3 mL solution for nebulization 0.63 mg INHALATION ONCE #90 ml 12/25/20 [Rx Last Taken Unknown] spironolactone 25 mg tablet 25 mg PO DAILY #90 tab 01/11/21 [Rx Last Taken Unknown] metoprolol tartrate 25 mg tablet 25 mg PO BID #60 tab 02/15/21 [Rx Last Taken Unknown] amoxicillin-pot clavulanate 875 mg PO Q12H #20 tablet 02/18/21 [Rx Last Taken Unknown] hydrocodone-acetaminophen 1 tab PO Q6H PRN PRN 3 Days #10 tablet 02/18/21 [Rx Last Taken Unknown] Allergy/AdvReac Type Severity Reaction Status Date / Time simvastatin [From Zocor] Allergy Unknown Verified 02/20/21 17:41 lisinopril AdvReac Severe cough Verified 02/20/21 17:41 oxycodone [From Percocet] AdvReac Severe Bad Dreams Verified 02/20/21 17:41 acetaminophen [From Vicodin] AdvReac Vomiting Verified 02/20/21 17:41 hydrocodone bitartrate AdvReac Vomiting Verified 02/20/21 17:41 [From Vicodin] AMMONIUM LACTATE Allergy Rash Uncoded 02/20/21 17:41 Family History Mother CAD (coronary artery disease) Daughter CAD (coronary artery disease) Abdominal aortic aneurysm (AAA) Surgical History H/O coronary artery bypass surgery (2000) History of section History of cholecystectomy History of coronary artery stent placement (03/12/18) History of coronary artery stent placement Hx of appendectomy Hx of CABG Social History household members: family Smoking Status: Never smoker alcohol intake: never substance use type: does not use ROS ROS ED Constitutional Constitutional ED: Denies chills or fever(s) ENT ENT ED: Denies rhinorrhea or sore throat Cardiovascular Cardiovascular: Reports other Details: Near syncope ; Denies chest pain Respiratory/Chest Respiratory/Chest: Denies cough or dyspnea Gastrointestinal Gastrointestinal: Reports abdominal pain, constipation, nausea and vomiting Genitourinary Genitourinary ED: Denies dysuria or hematuria Musculoskeletal Musculoskeletal: Denies arthralgias or myalgias Integumentary Denies Abrasions or rash Neurologic Neurologic: Denies headache(s) or paresthesias EXAM Physical Exam Const Vital Signs: 02/20/21 17:36 02/20/21 19:03 02/20/21 21:03 Temperature 98.3 F Temperature Source Oral Pulse Rate 90 89 75 Respiratory Rate 18 15 18 Blood Pressure 156/63 H 149/57 H 149/100 H Blood Pressure Mean 94 87 116 Pulse Ox 93 96 96 Oxygen Delivery Method Nasal Cannula Nasal Cannula Oxygen Flow Rate (L/min) 4 4 Positive obese General Appearance ED: NAD; Negative for pallor Nutritional Appearance: obese HEENT Reports dry mucous membranes normocephalic and atraumatic Mouth ED: Yes dry mucous membranes Mouth: dry mucous membranes Eyes PERRL and EOMs intact bilaterally General Eye ED: Negative for pale conjunctiva or scleral icterus Resp normal respiratory effort and clear to auscultation bilaterally GI Inspection: abdominal distention Auscultation: hypoactive bowel sounds Palpation: tender LLQ Neuro Sensorium / Orientation: alert, oriented to person, oriented to place and oriented to time Psych mental status grossly normal Skin General Skin Exam: Negative for jaundice or pallor Rashes: no rashes MDM MDM MDM Narrative Medical decision making narrative: 80-year-old female with history of diverticulitis presenting with nausea and vomiting. She is not had a fever but has not been checking it. She had an episode of near syncope while ambulating today and states she feels generally weak. On examination she does have some mild left lower quadrant tenderness. Abdomen is nonperitoneal. I obtained repeat blood work and today she has a leukocytosis of 15.4. Hemoglobin stable at 11.1. Creatinine is actually improved to 1.8. Electrolytes are normal. LFTs are normal. Because of this near syncopal episode I did obtain an EKG which appears to be a sinus rhythm at 91 bpm with PVCs. There is no sign of ischemia. Patient does relate she has a history of PVCs and palpitations. Chest x-ray my interpretation shows no acute cardiopulmonary process and the radiologist does agree. He does see a nodular density which corresponds to a previous CT finding. I do not believe she needs an acute CT currently. High-sensitivity troponin is 29. Urinalysis is negative for infection. CT of the abdomen pelvis shows uncomplicated diverticulitis. I did attempt to get the patient up and ambulating after she received morphine and Zofran and felt improved. After she walked a little bit she felt diaphoretic and nauseous and given this with her increasing white blood cell count I think she warrants admission. Patient was given a dose of Zosyn in the ER. Discussed with the hospitalist for admission. Impression: 1. Acute diverticulitis 2. Leukocytosis 3. Near syncope 4. Generalized weakness Lab Data Attestation: I reviewed the patient's lab results. Labs: Laboratory Results - last 24 hr 02/20/21 02/20/21 02/20/21 17:45 17:45 17:45 WBC 15.4 H RBC 3.84 L Hgb 11.1 L Hct 35.5 L MCV 92.4 MCH 28.9 MCHC 31.3 L RDW Std Deviation 45.8 H RDW Coeff of [place] 13.7 Plt Count 191 MPV 11.1 Immature Gran % (Auto) 0.600 Neut % (Auto) 84.3 H Lymph % (Auto) 6.7 L [place] % (Auto) 7.8 Eos % (Auto) 0.3 Baso % (Auto) 0.3 Absolute Neuts (auto) 13.0 H Absolute Lymphs (auto) 1.04 Nucleated RBC % 0 Sodium 137 Potassium 4.7 Chloride 101 Carbon Dioxide 30.0 Anion Gap 6 BUN 29 H Creatinine 1.80 H Estim Creat Clear Calc 20.96 Est GFR (MDRD) Af Amer 35 L Est GFR (MDRD) Non-Af 29 L BUN/Creatinine Ratio 16.1 Glucose 221 H Calcium 9.4 Total Bilirubin 0.60 AST 22 ALT 19 Alkaline Phosphatase 80 Troponin I High Sens 29 Total Protein 7.5 Albumin 2.8 L Globulin 4.7 H Albumin/Globulin Ratio 0.6 L Urine Color Urine Clarity Urine pH Ur Specific [place] Urine Protein Urine Glucose (UA) Urine Ketones Urine Occult Blood Urine Nitrite Urine Bilirubin Urine Urobilinogen Ur Leukocyte Esterase Urine RBC Urine WBC Ur Squamous Epith Cells Urine Bacteria Urine Mucus 02/20/21 20:27 WBC RBC Hgb Hct MCV MCH MCHC RDW Std Deviation RDW Coeff of [place] Plt Count MPV Immature Gran % (Auto) Neut % (Auto) Lymph % (Auto) [place] % (Auto) Eos % (Auto) Baso % (Auto) Absolute Neuts (auto) Absolute Lymphs (auto) Nucleated RBC % Sodium Potassium Chloride Carbon Dioxide Anion Gap BUN Creatinine Estim Creat Clear Calc Est GFR (MDRD) Af Amer Est GFR (MDRD) Non-Af BUN/Creatinine Ratio Glucose Calcium Total Bilirubin AST ALT Alkaline Phosphatase Troponin I High Sens Total Protein Albumin Globulin Albumin/Globulin Ratio Urine Color Yellow Urine Clarity Clear Urine pH 5.0 Ur Specific [place] 1.020 Urine Protein 30 H Urine Glucose (UA) Normal Urine Ketones Negative Urine Occult Blood Negative Urine Nitrite Negative Urine Bilirubin Negative Urine Urobilinogen 1 H Ur Leukocyte Esterase 25 H Urine RBC 0 SEEN Urine WBC 0-5 SEEN Ur Squamous Epith Cells 5-10 SEEN Urine Bacteria 0 SEEN Urine Mucus 0 SEEN Radiography Diagnostic Testing: Clinical Impression(s) from Imaging Studies Chest X-Ray 02/20/21 18:30 IMPRESSION: Nodular density at the right base likely corresponds to an area of scarring seen on prior imaging. Consider chest CT for further evaluation. Electronically Signed: Stef Gonsalez MD at 19:19 EST Tel , Service support , Abdomen CT 02/20/21 18:41 IMPRESSION: Acute uncomplicated sigmoid diverticulitis. 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 Large heterogeneous right adnexa is incompletely characterized. Recommend further evaluation with pelvic sonogram. Electronically Signed: Stef Gonsalez MD at 21:17 EST Tel , Service support , Discharge Plan Triage Chief Complaint: Nausea/Vomiting ED Provider: Gabino Gonzalez Dx/Rx/DC Orders Prescriptions: No Action lorazepam 0.5 mg tablet 0.5 mg PO 4X/DAY PRN (Reason: Anxiety) 10 Days Qty: 20 RF: 0 aspirin [Adult Low Dose Aspirin] 81 mg tablet,delayed release (DR/EC) 81 mg PO DAILY RF: 0 omeprazole 40 MG capsule 40 mg PO DAILY RF: 0 insulin regular human 100 UNIT/ML solution 41 unit SQ BID RF: 0 calcitriol 0.25 MCG capsule 0.5 mcg PO DAILY RF: 0 allopurinol 100 MG tablet 200 mg PO DAILY RF: 0 insulin NPH isoph U-100 human 100 UNITS/ML insulin pen 46 units subcut BID RF: 0 nitroglycerin 0.4 MG tablet 0.4 mg sublingual Q5M PRN (Reason: Cardiac/Chest Pain) Qty: 1 RF: 0 gabapentin 100 MG capsule 200 mg PO QHS RF: 0 benzonatate 100 mg Capsule 100 mg PO Q6H PRN PRN (Reason: Cough) RF: 0 hydrocodone-acetaminophen [hydrocodone-acetaminophen] 1 TABLET tablet 1 tab PO Q6H PRN PRN (Reason: Pain) 3 Days Qty: 10 RF: 0 amoxicillin-pot clavulanate [amoxicillin-pot clavulanate] 875 MG tablet 875 mg PO Q12H Qty: 20 RF: 0 rosuvastatin 5 mg tablet 5 mg PO QHS Qty: 90 RF: 3 furosemide 40 mg tablet 40 mg PO DAILY Qty: 90 RF: 3 budesonide 0.25 mg/2 mL suspension for nebulization 0.25 mg INHALATION BID Qty: 120 RF: 6 clopidogrel 75 mg tablet 75 mg PO DAILY Qty: 90 RF: 3 levalbuterol HCl 0.63 mg/3 mL solution for nebulization 0.63 mg INHALATION ONCE Qty: 90 RF: 6 spironolactone 25 mg tablet 25 mg PO DAILY Qty: 90 RF: 3 metoprolol tartrate 25 mg tablet 25 mg PO BID Qty: 60 RF: 11 Primary Care Provider: Jeffrey Lopez
[2021-02-20 18:20] LABS: ALB/GLOB Ratio 0.6 RATIO (0.9-2.4); AST(SGOT) 22 U/L (15-37); Alanine Aminotransfer ALT/SGPT 19 U/L (13-56); Albumin, Serum 2.8 g/dL (3.2-5.0); Alkaline Phosphatase 80 U/L (45-117); Anion Gap 6 (5-15); BUN 29 mg/dL (7-18); BUN/Creat Ratio 16.1 RATIO (10-20); Calcium,Total 9.4 mg/dL (8.5-10.1); Chloride 101 mmol/L (98-107); EST Glomerular Filtration Rate 29 mL/min (>60); Est Glom Filt Rate - Afr Amer 35 mL/min (>60); Estimated Creatinine Clearance 20.96 ml/min; Globulin 4.7 g/dL (2.2-4.2); Glucose 221 mg/dL (74-106); Potassium 4.7 mmol/L (3.5-5.1); Protein, Total 7.5 g/dL (6.4-8.2); Sodium Level 137 mmol/L (136-145)
--- NOTE | 2021-02-20 18:30 | RAD_ITS ---
STUDY: X-RAY CHEST REASON FOR EXAM: Female, 80 years old. Near syncope TECHNIQUE: Frontal radiograph COMPARISON: 12/10/2020 FINDINGS: Median sternotomy wires. Similar-appearing at the right base. There is no demonstrated pleural abnormality. There is mild cardiac enlargement. Normal mediastinum and billy. Normal visualized pulmonary arteries. Normal visualized aortic arch and descending thoracic aorta. Normal visualized thoracic spine. Normal visualized ribs, clavicles, and shoulders. There is no demonstrated abnormality of the visualized soft tissue structures of the upper abdomen. RAD/Chest 1 View (Portable) IMPRESSION: Nodular density at the right base likely corresponds to an area of scarring seen on prior imaging. Consider chest CT for further evaluation. Electronically Signed: Stef Gonsalez MD at 19:19 EST Tel , Service support ,
--- NOTE | 2021-02-20 18:41 | CT_ITS ---
STUDY: CT ABDOMEN AND PELVIS WITHOUT CONTRAST REASON FOR EXAM: Female, 80 years old. Abdominal pain RADIATION DOSAGE (If Supplied By Facility): CTDIvol = ( 20.55 ) mGy, DLP = ( 1144.81 ) mGycm TECHNIQUE: Transaxial images were obtained from the dome of the diaphragm to the symphysis pubis without oral contrast, and without intravenous contrast. Sagittal and coronal images were reconstructed. Individualized dose optimization techniques were used for this CT. COMPARISON: None. FINDINGS: Scarring is noted at the lung bases questionable nodule adjacent to the left heart border at the left base measures approximately 1.1 cm, stable compared to prior. The visualized portions of the heart demonstrate coronary artery calcifications. Liver and spleen granulomata. There is non-visualization of the gallbladder, which may be secondary to either contraction or a prior cholecystectomy. Normal pancreas. Normal bilateral adrenal glands. Normal right kidney. Normal left kidney. Normal visualized stomach. Normal small intestine. There is diverticulosis, with thickening of the colon wall, and pericolonic inflammation changes consistent with acute diverticulitis. The appendix is visualized and appears normal. Normal abdominal aorta. Normal inferior vena cava. Prominent retroperitoneal fat. Normal urinary bladder. Enlarged heterogeneous uterus with multiple coarse calcifications. Prominent/heterogeneous enlarged right adnexa. There is a small umbilical hernia containing fat. Normal osseous structures. CT/Abdomen/Pel W ORAL Cont Only IMPRESSION: Acute uncomplicated sigmoid diverticulitis. 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 Large heterogeneous right adnexa is incompletely characterized. Recommend further evaluation with pelvic sonogram. Electronically Signed: Stef Gonsalez MD at 21:17 EST Tel , Service support ,
[2021-02-20 19:03] VITALS: BP 149/57; PULSE 89; RESP 15; O2SAT 96
[2021-02-20 19:32] LABS: Troponin-I HS 29 pg/mL (3.0-54.0)
[2021-02-20 20:34] LABS: Bacteria 0 SEEN /hpf (None Seen); Mucous, Urine 0 SEEN /hpf (<or=2+); Red Blood Cells-Urine 0 SEEN /hpf (0-5)
[2021-02-20 20:36] LABS: Color, Urine Yellow (Yellow); Glucose, Dipstick Normal (Normal); Ketone-Dipstick Negative (Negative); Leukocyte Esterase-Dipstick 25 /ul (Negative); Nitrite-Dipstick Negative (Negative); Occult Blood-Urine Negative /ul (Negative); Protein-Dipstick 30 mg/dl (Negative); Urine Bilirubin Dipstick Negative (Negative); Urine Clarity Clear (Clear); Urine Urobilinogen 1 mg/dl (Normal)
[2021-02-20 20:44] LABS: Squamous Epithelial Cells - UA 5-10 SEEN /hpf (5-10); White Blood Cells 0-5 SEEN /hpf (0-5)
[2021-02-20 21:03] VITALS: BP 149/100; PULSE 75; RESP 18; O2SAT 96
[2021-02-20 22:07] VITALS: BP 135/38; PULSE 56; RESP 16; TEMP 36.8; O2SAT 98
[2021-02-20] MEDS: Piperacil/Tazobactam 3.375 GM/50 ML ML IV (22:09)
--- NOTE | 2021-02-20 22:24 | PCM.HP.STD ---
HPI - General General Date of Admission: 02/20/21 Date of Service: 02/20/21 Chief Complaint: Left lower quadrant abdominal pain, diverticulitis HPI Narrative SUBHASH GASPAR, is a 80 F who presents the emergency room at [facility] [place] complaining of continued left lower quadrant abdominal pain, she is also had some constipation over the last couple of days. Patient also complains of some intermittent emesis of small amounts of liquid. Work-up in the emergency room included a CBC which showed an elevated white blood cell count of 15.4, CHEM panel showed a creatinine of 1.8, BUN was 29, glucose was 221. CT of the abdomen pelvis showed acute uncomplicated sigmoid diverticulitis with a large heterogeneous right adnexa that is incompletely characterized. Patient was wanting to go home from the emergency room, however, when she got up to walk she did not feel good and had to sit back down, she then requested admission to the hospital. Patient will be admitted to [place] [id number], she will be placed on IV Unasyn, and I will place her on IV fluids. Labs will be monitored. [facility] Medical History Acute and chronic respiratory failure with hypoxia Acute diastolic CHF (congestive heart failure) Asthma Atherosclerosis 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 angina pectoris Benign essential hypertension Chronic renal failure, stage 4 (severe) Diabetes mellitus, type II Dyslipidemia GERD (gastroesophageal reflux disease) Hypothyroidism IBS (irritable bowel syndrome) Ischemic cardiomyopathy Obesity (BMI 30-39.9) Obstructive sleep apnea ALYCE (obstructive sleep apnea) Rheumatoid arthritis Secondary pulmonary arterial hypertension TIA (transient ischemic attack) Type 2 diabetes mellitus Home Medications omeprazole 40 mg PO DAILY 08/23/13 [History Last Taken 11/10/18] insulin regular human 41 unit SQ BID 05/10/17 [History Last Taken 11/10/18] calcitriol 0.5 mcg PO DAILY 05/17/17 [History Last Taken 11/10/18] allopurinol 200 mg PO DAILY 03/10/18 [History Last Taken 11/10/18] insulin NPH isoph U-100 human 46 units SUBCUT BID 03/10/18 [History Last Taken 11/10/18] nitroglycerin 0.4 mg SUBLINGUAL Q5M PRN #1 bottle 03/13/18 [Rx Last Taken Unknown] lorazepam 0.5 mg tablet 0.5 mg PO 4X/DAY PRN 10 Days #20 tab 08/10/18 [History Last Taken Unknown] gabapentin 200 mg PO QHS 02/13/19 [History Last Taken Unknown] rosuvastatin 5 mg tablet 5 mg PO QHS #90 tab 07/18/20 [Rx Last Taken Unknown] benzonatate 100 mg PO Q6H PRN PRN 08/16/20 [History Last Taken Unknown] aspirin 81 mg tablet,delayed release 81 mg PO DAILY 09/07/20 [History Last Taken Unknown] furosemide 40 mg tablet 40 mg PO DAILY #90 tab 10/09/20 [Rx Last Taken Unknown] budesonide 0.25 mg/2 mL suspension for nebulization 0.25 mg INHALATION BID #120 ml 12/03/20 [Rx Last Taken Unknown] clopidogrel 75 mg tablet 75 mg PO DAILY #90 tab 12/10/20 [Rx Last Taken Unknown] levalbuterol HCl 0.63 mg/3 mL solution for nebulization 0.63 mg INHALATION ONCE #90 ml 12/25/20 [Rx Last Taken Unknown] spironolactone 25 mg tablet 25 mg PO DAILY #90 tab 01/11/21 [Rx Last Taken Unknown] metoprolol tartrate 25 mg tablet 25 mg PO BID #60 tab 02/15/21 [Rx Last Taken Unknown] amoxicillin-pot clavulanate 875 mg PO Q12H #20 tablet 02/18/21 [Rx Last Taken Unknown] hydrocodone-acetaminophen 1 tab PO Q6H PRN PRN 3 Days #10 tablet 02/18/21 [Rx Last Taken Unknown] Allergy/AdvReac Type Severity Reaction Status Date / Time simvastatin [From Zocor] Allergy Unknown Verified 02/20/21 17:41 lisinopril AdvReac Severe cough Verified 02/20/21 17:41 oxycodone [From Percocet] AdvReac Severe Bad Dreams Verified 02/20/21 17:41 AMMONIUM LACTATE Allergy Rash Uncoded 02/20/21 17:41 Family History Mother CAD (coronary artery disease) Daughter CAD (coronary artery disease) Abdominal aortic aneurysm (AAA) Surgical History H/O coronary artery bypass surgery (2000) History of section History of cholecystectomy History of coronary artery stent placement (03/12/18) History of coronary artery stent placement Hx of appendectomy Hx of CABG Social History household members: family Smoking Status: Never smoker alcohol intake: never substance use type: does not use ROS Constitutional Constitutional: Denies anorexia, change in weight, chills, fatigue, fever(s), night sweats or weakness Eyes Eyes: Denies blurry vision, change in vision, discharge from eye(s) or eye pain ENT HEENT: Denies abnormal hearing, dysphagia or ear pain Cardiovascular Cardiovascular: Denies chest pain, claudication, dyspnea on exertion, edema or palpitations Respiratory/Chest Respiratory/Chest: Denies cough, dyspnea, excessive phlegm production, hemoptysis, shortness of breath at rest or shortness of breath with exertion Gastrointestinal Gastrointestinal: Reports abdominal pain, constipation, nausea and vomiting; Denies diarrhea, hematemesis, hematochezia or melena Genitourinary Genitourinary: Denies dysuria, hematuria, urinary frequency, urinary hesitancy, urinary incontinence or urinary urgency Musculoskeletal Musculoskeletal: Denies back pain, joint pain, joint stiffness, joint swelling, myalgias or neck pain Neurologic Neurologic: Denies abnormal gait, abnormal speech, confusion, disequilibrium, dizziness, focal weakness, headache(s), loss of vision, numbness, other visual disturbances, paresthesias, syncope or tingling Psychiatric Psychiatric: Denies anxiety, cognitive impairment, depression, irritability, mood swings or suicidal ideation Endocrine Endocrinology: Denies change in body appearance, cold intolerance, excessive sweating, heat intolerance, polydipsia or polyuria Hematologic/Lymphatic Hematologic/Lymphatic: Denies none, anemia, easy bleeding, easy bruising or lymphadenopathy Allergic/Immunologic Allergic/Immunologic: Denies rhinitis, urticaria, eczemia or asthma Vital Signs Vital Signs Vital Signs: 02/20/21 17:36 02/20/21 19:03 02/20/21 21:03 Temperature 98.3 F Temperature Source Oral Pulse Rate 90 89 75 Respiratory Rate 18 15 18 Blood Pressure 156/63 H 149/57 H 149/100 H Blood Pressure Mean 94 87 116 Pulse Ox 93 96 96 Oxygen Delivery Method Nasal Cannula Nasal Cannula Oxygen Flow Rate (L/min) 4 4 02/20/21 22:07 Temperature 98.3 F Temperature Source Oral Pulse Rate 56 L Respiratory Rate 16 Blood Pressure 135/38 H Blood Pressure Mean 70 Pulse Ox 98 Oxygen Delivery Method Nasal Cannula Oxygen Flow Rate (L/min) 4 Weight Weight: 97.7 kg Body Mass Index (BMI) 38.1 Physical Exam Const alert, oriented x3, no apparent distress and healthy appearing General Appearance: cooperative, well kempt and well developed Orientation / Consciousness: awake, oriented to person, oriented to place and oriented to time HEENT normocephalic, head/scalp atraumatic and moist oral mucous membranes Eyes PERRL, EOMs intact bilaterally and conjunctivae normal Neck nuchal rigidity, supple, no JVD, thyroid normal and no carotid bruits General: trachea midline Resp normal respiratory effort, no retractions, no use of accessory muscles and clear to auscultation bilaterally Auscultation: Negative for rales, rhonchi or wheezes Cardio regular rate, regular rhythm, S1 normal heart sound, S2 normal heart sound, no murmurs, no rub and no gallops GI GI Narrative: Abdomen is nondistended, there is diffuse abdominal tenderness over the left lower quadrant area of the abdomen-this abdominal tenderness is not severe, there is no rebound abdominal tenderness, bowel sounds are present in all 4 quadrants. Extremity no clubbing, cyanosis or edema Skin no rashes or lesions noted General Skin Exam: no breakdown Neuro oriented x3, CN's II-XII intact bilaterally, no focal motor deficits and no sensory deficits noted Sensorium / Orientation: awake and alert Speech: speech normal Psych thought process normal and affect normal Results Lab / Micro Data Result Diagrams: 02/20/21 17:45 02/20/21 17:45 Labs: Laboratory Results - last 24 hr 02/20/21 17:45: WBC 15.4 H, RBC 3.84 L, Hgb 11.1 L, Hct 35.5 L, MCV 92.4, MCH 28.9, MCHC 31.3 L, RDW Std Deviation 45.8 H, RDW Coeff of [place] 13.7, Plt Count 191, MPV 11.1, Immature Gran % (Auto) 0.600, Neut % (Auto) 84.3 H, Lymph % (Auto) 6.7 L, [place] % (Auto) 7.8, Eos % (Auto) 0.3, Baso % (Auto) 0.3, Absolute Neuts (auto) 13.0 H, Absolute Lymphs (auto) 1.04, Nucleated RBC % 0 02/20/21 17:45: Sodium 137, Potassium 4.7, Chloride 101, Carbon Dioxide 30.0, Anion Gap 6, BUN 29 H, Creatinine 1.80 H, Estim Creat Clear Calc 20.96, Est GFR (MDRD) Af Amer 35 L, Est GFR (MDRD) Non-Af 29 L, BUN/Creatinine Ratio 16.1, Glucose 221 H, Calcium 9.4, Total Bilirubin 0.60, AST 22, ALT 19, Alkaline Phosphatase 80, Total Protein 7.5, Albumin 2.8 L, Globulin 4.7 H, Albumin/Globulin Ratio 0.6 L 02/20/21 17:45: Troponin I High Sens 29 02/20/21 20:27: Urine Color Yellow, Urine Clarity Clear, Urine pH 5.0, Ur Specific [place] 1.020, Urine Protein 30 H, Urine Glucose (UA) Normal, Urine Ketones Negative, Urine Occult Blood Negative, Urine Nitrite Negative, Urine Bilirubin Negative, Urine Urobilinogen 1 H, Ur Leukocyte Esterase 25 H, Urine RBC 0 SEEN, Urine WBC 0-5 SEEN, Ur Squamous Epith Cells 5-10 SEEN, Urine Bacteria 0 SEEN, Urine Mucus 0 SEEN Radiology Impression Chest X-Ray 02/20/21 18:30 IMPRESSION: Nodular density at the right base likely corresponds to an area of scarring seen on prior imaging. Consider chest CT for further evaluation. Electronically Signed: Stef Gonsalez MD at 19:19 EST Tel , Service support , Abdomen CT 02/20/21 18:41 IMPRESSION: Acute uncomplicated sigmoid diverticulitis. 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 Large heterogeneous right adnexa is incompletely characterized. Recommend further evaluation with pelvic sonogram. Electronically Signed: Stef Gonsalez MD at 21:17 EST Tel , Service support , Assessment & Plan Assessment/Plan (1) Diverticulitis of sigmoid colon: PLAN: 1. Diverticulitis of the sigmoid colon with failed outpatient treatment-patient will be admitted to [facility], patient will be placed on IV Unasyn and IV fluids, she will be placed on full liquid diet, labs will be monitored. Due to the patient's abnormal CT scan in the right adnexal area, I will order a pelvic ultrasound tomorrow morning on the patient. #2 chronic kidney disease stage IV-labs will be monitored #3 chronic hypoxic respiratory failure-patient has history of obesity related restrictive lung disease, patient is currently being worked up to confirm a past diagnosis of asthma as an outpatient-patient sees Dr. Olvera #4 essential hypertension #5 obstructive sleep apnea-patient has her own CPAP machine, her daughter will bring it in #6 type 2 diabetes-patient will be placed on sliding scale insulin, I do not feel that she needs long-acting insulin at this point #7 coronary artery disease-stable at this time #8 hyperlipidemia #9 pulmonary hypertension-moderate Charges/Coding Visit Charges Inpatient E&M: 15972 Init Hosp L3
[2021-02-20 22:35] VITALS: BP 130/96; PULSE 60; RESP 20; TEMP 36.8; O2SAT 99; BMI 35.6
--- NOTE | 2021-02-20 22:52 | PCS.PANDOC ---
PANDEMIC DOCUMENTATION INITIATED: Date: 10/22/2020 Time: 190
[2021-02-20 22:56] LABS: Bedside Glucose 226 mg/dL (70-110)
--- NOTE | 2021-02-20 23:38 | US_ITS ---
STUDY: ULTRASOUND OF THE FEMALE PELVIS - COMPLETE REASON FOR EXAM: Female, 80 years old. Right adnexal abnormality on CT LMP: Patient is postmenopausal. TECHNIQUE: Transabdominal and Transvaginal TECHNICAL QUALITY: Adequate. COMPARISON: Comparison is made with prior CT scan of abdomen and pelvis dated 02/18/2021. FINDINGS: The uterus is anteverted and is in a midline position. The uterus measures 8.9 cm x 2.4 cm x 2.8 cm. Normal uterine cervix. The endometrium is thickened and measures 8.6 mm in thickness, and is hyperechoic. There is no demonstrated endometrial mass. Heterogenous appearance of the myometrium. I.U.D. - The patient does not have an I.U.D. The right ovary is non-visualized. The left ovary is non-visualized. There is no fluid in the cul-de-sac. The pre void volume of the bladder was 79 ml. US/Transvaginal Non- IMPRESSION: The patient is postmenopausal. Thickening of the endometrium. Electronically Signed: Steve Ferreira MD at 10:44 EST , Service support ,
[2021-02-20] MEDS: 0.9% Normal Saline 1,000 ML 100 ML IV (23:46)
[2021-02-20] MEDS: Temazepam 15 MG Capsule PO (23:46)
[2021-02-20] MEDS: Lactulose 20 GM/30 ML UDC 30 GM PO (23:46)
[2021-02-20 23:47] VITALS: PULSE 56
[2021-02-20] MEDS: Gabapentin 100 MG Capsule 200 MG PO (23:47)
[2021-02-20] MEDS: Morphine 2 MG/ML Syringe IV (23:48)
[2021-02-21] VITALS (8 sets, daily range): BP systolic 128–156; BP diastolic 78–92; PULSE 68–105; RESP 16–20; TEMP 36.4–36.8; O2SAT 93–100
[2021-02-21] MEDS: Insulin Lispro 100 UNIT/ML INSULN.PEN SC ×6 (02:21→21:36)
[2021-02-21 02:31] LABS: Bedside Glucose 283 mg/dL (70-110)
[2021-02-21 07:00] LABS: Bedside Glucose 214 mg/dL (70-110)
[2021-02-21] MEDS: Ipratropium/Albuterol Sulfate 3 ML AMPUL.NEB INHALATION ×3 (07:20→19:15)
[2021-02-21] MEDS: Budesonide Respules 0.5 MG/2 ML AMPUL.NEB. 0.25 MG INHALATION ×2 (07:21→19:15)
--- NOTE | 2021-02-21 07:36 | PCM.PN.HOSP ---
Subjective Subjective Patient is a 80-year-old lady who presented with nausea and vomiting and abdominal discomfort. CT of the abdomen obtained on admission demonstrated acute uncomplicated sigmoid colitis. Admitted to regular nursing floor for further management Objective Data Objective Data Vital Signs: Vital Signs Temp Pulse Resp BP Pulse Ox 98.1 F 71 16 149/92 H 95 02/21/21 04:35 02/21/21 04:35 02/21/21 04:35 02/21/21 04:35 02/21/21 04:35 Oxygen Flow Rate (L/min) 5 Oxygen Delivery Method CPAP Weight: 91.3 kg Body Mass Index (BMI) 35.6 Intake & Output: Intake and Output for Last 24 Hours 02/19/21 02/20/21 02/21/21 23:59 23:59 23:59 Intake Total 1050 / 1050 Balance 1050 / 1050 Lab / Micro Data Result Diagrams: 02/20/21 17:45 02/21/21 10:58 Labs: Laboratory Results - last 24 hr 02/20/21 17:45: WBC 15.4 H, RBC 3.84 L, Hgb 11.1 L, Hct 35.5 L, MCV 92.4, MCH 28.9, MCHC 31.3 L, RDW Std Deviation 45.8 H, RDW Coeff of Le[place] 13.7, Plt Count 191, MPV 11.1, Immature Gran % (Auto) 0.600, Neut % (Auto) 84.3 H, Lymph % (Auto) 6.7 L, [place] % (Auto) 7.8, Eos % (Auto) 0.3, Baso % (Auto) 0.3, Absolute Neuts (auto) 13.0 H, Absolute Lymphs (auto) 1.04, Nucleated RBC % 0 02/20/21 17:45: Sodium 137, Potassium 4.7, Chloride 101, Carbon Dioxide 30.0, Anion Gap 6, BUN 29 H, Creatinine 1.80 H, Estim Creat Clear Calc 20.96, Est GFR (MDRD) Af Amer 35 L, Est GFR (MDRD) Non-Af 29 L, BUN/Creatinine Ratio 16.1, Glucose 221 H, Calcium 9.4, Total Bilirubin 0.60, AST 22, ALT 19, Alkaline Phosphatase 80, Total Protein 7.5, Albumin 2.8 L, Globulin 4.7 H, Albumin/Globulin Ratio 0.6 L 02/20/21 17:45: Troponin I High Sens 29 02/20/21 20:27: Urine Color Yellow, Urine Clarity Clear, Urine pH 5.0, Ur Specific [place] 1.020, Urine Protein 30 H, Urine Glucose (UA) Normal, Urine Ketones Negative, Urine Occult Blood Negative, Urine Nitrite Negative, Urine Bilirubin Negative, Urine Urobilinogen 1 H, Ur Leukocyte Esterase 25 H, Urine RBC 0 SEEN, Urine WBC 0-5 SEEN, Ur Squamous Epith Cells 5-10 SEEN, Urine Bacteria 0 SEEN, Urine Mucus 0 SEEN 02/20/21 22:47: POC Glucose 226 H 02/21/21 02:18: POC Glucose 283 H 02/21/21 06:39: POC Glucose 214 H Radiography Diagnostic Testing: Radiology Impression Chest X-Ray 02/20/21 18:30 IMPRESSION: Nodular density at the right base likely corresponds to an area of scarring seen on prior imaging. Consider chest CT for further evaluation. Electronically Signed: Stef Gonsalez MD at 19:19 EST Tel , Service support , Abdomen CT 02/20/21 18:41 IMPRESSION: Acute uncomplicated sigmoid diverticulitis. 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 Large heterogeneous right adnexa is incompletely characterized. Recommend further evaluation with pelvic sonogram. Electronically Signed: Stef Gonsalez MD at 21:17 EST Tel , Service support , Physical Exam Narrative GENERAL: cooperative HEENT: Atraumatic; EYES; Anicteric, Normal Conjunctiva NECK; supple, normal thyroid, RESPIRATORY: Diminished to auscultation CARDIOVASCULAR: Regular S1 S2, GI: soft, normoactive bowel sounds, left lower quadrant tenderness : No Renal angle tenderness; EXTREMITIES: No edema, no clubbing, MUSCULOSKELETAL: no muscle waisting NEURO: Awake; no lateralizing signs. SKIN: No Rash PSYCH; Flat affect Assessment & Plan Assessment/Plan (1) Diverticulitis of sigmoid colon: PLAN: Patient is a 80-year-old lady who presented with nausea and vomiting and abdominal discomfort. CT of the abdomen obtained on admission demonstrated acute uncomplicated sigmoid colitis. Admitted to regular nursing floor for further management 1. Acute uncomplicated sigmoid diverticulitis ?Admitted to regular nursing floor. Patient apparently did fail outpatient treatment. Patient started on Unasyn admitted to regular nursing floor 2. Right adnexal mass found on CT ?Pelvic ultrasound ordered for further evaluation as recommended by radiologist 3. Hypertension - Blood pressure controlled, home medications continued with dose adjustment as needed 4. Diabetes mellitus type II -patient's oral hypoglycemics held. Placed on long acting insulin, Accu-Cheks a.c. and at bedtime and covered with sliding scale insulin 5. Class II obesity with BMI of 35.7 ?Weight loss advised 6. Mild intermittent asthma ?Did continue patient inhaled corticosteroid as well as bronchodilator treatments as needed 7. Dyslipidemia -Patient is on statin therapy, continued at home dose 8. Coronary artery disease ?With previous history of CABG and subsequent stenting of her bypass grafts 9. Moderate pulmonary hypertension ?Stable 10. Acute kidney injury ?Superimposed on chronic kidney disease stage IIIb ?Started on hydration with monitoring of electrolyte 11. DVT prophylaxis ?SC heparin Charges/Coding Visit Charges Inpatient E&M: 82058 Subs Hosp L3
[2021-02-21] MEDS: 0.9% Normal Saline 1,000 ML 100 ML IV ×2 (09:25→21:09)
[2021-02-21] MEDS: Aspirin E.C. 81 MG Tablet PO (10:11)
[2021-02-21] MEDS: Clopidogrel Bisulfate 75 MG Tablet PO (10:11)
[2021-02-21] MEDS: Metoprolol Tartrate 25 MG Tablet PO ×2 (10:11→21:11)
[2021-02-21] MEDS: Heparin Injection (Vial) 5,000 UNIT/ML VIAL 5000 UNIT SC ×2 (10:11→21:10)
[2021-02-21 10:21] LABS: Bedside Glucose 287 mg/dL (70-110)
--- NOTE | 2021-02-21 11:10 | CASEMGMT ---
RN SETH Face to Face with patient for initial transition planning/care coordination assessment. RN CM introduced self and role at [facility]. Patient lying in bed, alert and oriented. Patient willing to participate in assessment and is able to answer all questions appropriately. Care providers, pharmacy, and demographics verified. Patient wishes to discharge home, denies need for home health at this time. Patient states he has no further needs or concerns at this time. CM to follow for discharge planning needs that may arise. PCP: John Specialists: Izzy, candy dipper hand; Wade, centrifugal extractor operator; Anthony, glaciologist; Marley, third rail installer Preferred Pharmacy: [facility] Insurance: EMBA Medical Prescription Benefit: yes Living Will/HPOA: none LNOK: , granddaughter Living Arrangements: patient lives with and granddaughter in a single story home with 3 steps to enter the home. Patient states she is independent for self care Transportation: granddaughter DME/HHC: Patient has shower chair, walker, cpcp, nebulizer, and home oxygen at 4-5 lpm with portability through [facility]. Patient has had [facility] in the past. Disposition Plan: Patient to discharge home with family support and follow-up plans in place. Azul BRISENO, RN, CM
[2021-02-21 11:36] LABS: ALB/GLOB Ratio 0.4 RATIO (0.9-2.4); AST(SGOT) 25 U/L (15-37); Alanine Aminotransfer ALT/SGPT 26 U/L (13-56); Albumin, Serum 2.2 g/dL (3.2-5.0); Alkaline Phosphatase 79 U/L (45-117); Anion Gap 7 (5-15); BUN 36 mg/dL (7-18); BUN/Creat Ratio 18.8 RATIO (10-20); Calcium,Total 9.1 mg/dL (8.5-10.1); Chloride 102 mmol/L (98-107); Creatinine, Serum 1.92 mg/dL (0.55-1.02); EST Glomerular Filtration Rate 27 mL/min (>60); Est Glom Filt Rate - Afr Amer 32 mL/min (>60); Estimated Creatinine Clearance 19.65 ml/min; Glucose 289 mg/dL (74-106); Potassium 4.5 mmol/L (3.5-5.1); Protein, Total 7.2 g/dL (6.4-8.2); Sodium Level 132 mmol/L (136-145)
[2021-02-21 11:44] LABS: Absolute Lymphocyte Count 0.93 X10^3/uL (0.83-4.51); Basophil# 0.03 X10^3/uL; Basophil% 0.2 % (0-1); Eosinophil# 0.04 X10^3/uL; Eosinophils% 0.3 % (0-5); Hematocrit 32.4 % (37-47); Hemoglobin 10.2 g/dL (12.0-15.0); Lymphocyte # 0.93 X10^3/ul (0.83-4.51); Lymphocyte % 7.1 % (19-41); Mean Corp Hgb Conc 31.5 g/dL (32-36); Mean Corpuscular Hgb 29.3 pg (27.0-32.0); Mean Corpuscular Volume 93.1 fL (81-99); Mean Platelet Vol. 10.9 fl (6.2-12.0); Monocyte# 0.99 X10^3/uL; Monocyte% 7.6 % (0-10); NRBC Flagged by Analyzer 0 % (0-5); Neutrophil # 11.04 X10^3/uL (2.7-7.7); Neutrophil % 84.3 % (47-70); Platelet Count 160 K/mm3 (150-450); RBC Distribution Width CV 13.7 % (11.6-14.6); RBC Distribution Width SD 46.1 fl (35.1-43.9); Red Blood Count 3.48 M/mm3 (4.2-5.4); White Blood Count 13.1 K/mm3 (4.4-11.0)
[2021-02-21] MEDS: Acetaminophen 325 MG Tablet 650 MG PO (13:33)
[2021-02-21 13:51] LABS: Bedside Glucose 322 mg/dL (70-110)
[2021-02-21] MEDS: Ondansetron 4 MG/2 ML Vial IV (14:13)
[2021-02-21] MEDS: 0.9% Saline Lock 10 ML Syringe IV (14:13)
[2021-02-21 17:05] LABS: Bedside Glucose 342 mg/dL (70-110)
[2021-02-21] MEDS: Atorvastatin Calcium 10 MG Tablet PO (21:11)
[2021-02-21] MEDS: Gabapentin 100 MG Capsule 200 MG PO (21:11)
[2021-02-21] MEDS: Temazepam 15 MG Capsule PO (21:19)
[2021-02-21 21:36] LABS: Bedside Glucose 273 mg/dL (70-110)
[2021-02-22 00:41] LABS: Bedside Glucose 275 mg/dL (70-110)
[2021-02-22 02:22] VITALS: BP 85/63
--- NOTE | 2021-02-22 02:49 | PCM.HOSP.N ---
Hospitalist Note Toby CORONEL was called at 2:22 AM when the patient was found apneic and unresponsive, initial rhythm appeared to be asystole, CPR including chest compressions was instituted, patient was bagged and was not intubated. 1 mg epinephrine was given IV, resulting rhythm appeared to be agonal, initially there was no pulse palpated, a second round of 1 mg epinephrine was delivered and after this rhythm check revealed a sinus rhythm at approximately 80 initially with a pulse, there is no respirations and bagging was continued, this deteriorated however after 1 to 2 minutes into what appeared to be PEA, CPR was resumed with chest compressions, a another 1 mg epinephrine dose was delivered, the next rhythm check revealed an agonal rhythm with no pulse, at that time at 2:38 AM, CPR was halted and the patient was pronounced .
--- NOTE | 2021-02-22 03:50 | NURSING ---
0220 staff walked into pts room; pt was found laying on her side . staff attempted to wake pt by tapping pt arm, patting her hand, then a sternal rub with no response. staff ran to the get the charge nurse and compressions started , code light put on . see code charting
--- NOTE | 2021-02-22 07:11 | PCM.DEATH ---
Preliminary Cause of Preliminary Cause of Preliminary Cause of : Cardiopulmonary arrest Diverticulitis Date of Admission: 02/20/21 Principle Diagnosis Problem List: Active and Suspected Problems (Updated 02/18/21 @ 15:[address] Lion Santiago MD) Diverticulitis of sigmoid colon (Acute) Hospital Course Patient is a 80-year-old lady admitted with acute uncomplicated sigmoid diverticulitis with failed outpatient treatment. Patient was admitted to regular nursing floor for management. Patient was started on Unasyn. Patient was apparently found apneic and unresponsive at 0222. CODE BLUE was called patient was resuscitated using ACLS. Patient was intubated during the ACLS protocol. ROSC could not be achieved. Patient was pronounced at 0238 on February 22, 2021 Visit Charges Inpatient E&M: 94145 Disch Hosp
== END 2021-02-22 07:25 | DRG 392 ==
LOC: ED 21:53 → MS2 22:56
PROVIDERS: Admitting Provider Internal Medicine; Emergency Provider Student in an Organized Health Care Education/Training Program; PCP Family Medicine; Visit Provider Internal Medicine
DX: K57.32 Diverticulitis of large intestine without perforation or abscess without bleeding (principal); N18.4 Chronic kidney disease, stage 4 (severe); I25.810 Atherosclerosis of coronary artery bypass graft(s) without angina pectoris; J96.11 Chronic respiratory failure with hypoxia; I46.9 Cardiac arrest, cause unspecified; E11.22 Type 2 diabetes mellitus with diabetic chronic kidney disease; E78.5 Hyperlipidemia, unspecified; G47.33 Obstructive sleep apnea (adult) (pediatric); E66.9 Obesity, unspecified; K21.9 Gastro-esophageal reflux disease without esophagitis; I25.5 Ischemic cardiomyopathy; M06.9 Rheumatoid arthritis, unspecified; R53.1 Weakness; I27.21 Secondary pulmonary arterial hypertension; E03.9 Hypothyroidism, unspecified; K58.9 Irritable bowel syndrome, unspecified; I12.9 Hypertensive chronic kidney disease with stage 1 through stage 4 chronic kidney disease, or unspecified chronic kidney disease; I27.20 Pulmonary hypertension, unspecified; J45.20 Mild intermittent asthma, uncomplicated; Z86.73 Personal history of transient ischemic attack (TIA), and cerebral infarction without residual deficits; Z79.4 Long term (current) use of insulin; Z79.899 Other long term (current) drug therapy; Z79.02 Long term (current) use of antithrombotics/antiplatelets; Z79.82 Long term (current) use of aspirin; Z68.38 Body mass index [BMI] 38.0-38.9, adult
CPT/HCPCS: 36415; 71045; 74176; 76830; 80048; 80053; 81001; 82962; 84484; 85025; 92950; 93005; 94640; 97802; 99284; 99285; J7030; J7040; A4216; J0295; J2405